=== PATIENT | male | born 1945 | race Caucasian/White ===

== ENCOUNTER → 2021-06-05 | Outpatient (CLI) | payer MEDICARE ==
[2021-06-05 16:35] LABS: Chol/HDL Ratio 3.59; LDL Cholesterol,Calculated 106.2 mg/dL (0.0-131.0); VLDL Calculation 12.8 mg/dL (5.00-40.00)
== END | disposition home or self-care (01) ==
LOC: LABWHC1 10:40
PROVIDERS: ATTEND Internal Medicine Cardiovascular Disease
DX: E78.2 Mixed hyperlipidemia (principal)
CPT/HCPCS: 36415; 80061; 84450; 84460

== ENCOUNTER 2021-08-04 16:07 | Observation (INO) | payer MEDICARE ==
[2021-08-04 16:47] VITALS: PULSE 60
--- NOTE | 2021-08-04 17:35 | ED ---
General Adult HPI - General Chief complaint: Recheck/Abnormal Lab/Rx Stated complaint: dialysis port problems Time Seen by Provider: 08/04/21 17:10 Source: patient, RN notes reviewed Mode of arrival: ambulatory Limitations: no limitations - History of Present Illness Initial comments: Patient is a pleasant 76-year-old male presenting to the emergency department with concern for clotted fistula. Patient had this fistula placed over a year ago in [place]. Patient went to have dialysis today however they were unable to access and concern for clotting. Patient has seen Dr. Melchor once previously. Patient has had previous fistula years ago also that had problems with clotting in the past. Patient otherwise feels fine. Last dialysis was 2 days ago. No arm pain or swelling. - Related Data Allergies Allergy/AdvReac Type Severity Reaction Status Date / Time No Known Allergies Allergy Verified 08/04/21 16:47 Review of Systems ROS Statement: Those systems with pertinent positive or pertinent negative responses have been documented in the HPI. ROS Other: All systems not noted in ROS Statement are negative. Constitutional: Denies: fever Eyes: Denies: eye pain ENT: Denies: ear pain Respiratory: Denies: cough, dyspnea Cardiovascular: Denies: chest pain Endocrine: Denies: fatigue Gastrointestinal: Denies: abdominal pain Genitourinary: Denies: dysuria Musculoskeletal: Denies: back pain Skin: Denies: rash Neurological: Denies: weakness Past Medical History Additional Past Medical History / Comment(s): kidney failure- dialysis 3x per week. pacemaker History of Any Multi-Drug Resistant Organisms: None Reported Additional Past Surgical History / Comment(s): pacekmaker. Cardiac stents. hip replacement Past Psychological History: No Psychological Hx Reported Smoking Status: Never smoker Past Alcohol Use History: Occasional Past Drug Use History: None Reported General Exam Limitations: no limitations General appearance: alert, in no apparent distress Head exam: Present: normocephalic Eye exam: Present: normal appearance Neck exam: Present: normal inspection Respiratory exam: Present: normal lung sounds bilaterally Cardiovascular Exam: Present: regular rate, normal rhythm Expanded Peripheral pulses: 2+: Radial (L) GI/Abdominal exam: Present: soft Extremities exam: Present: other (Left upper extremity fistula in place. There is small thrill noted near the lower end. No significant swelling or erythema or tenderness.) Neurological exam: Present: alert Psychiatric exam: Present: normal affect, normal mood Skin exam: Present: normal color. Absent: erythema Course Vital Signs 08/04/21 08/04/21 16:42 19:02 Temperature 97.4 F L Pulse Rate 60 60 Respiratory 16 16 Rate Blood Pressure 154/74 138/77 O2 Sat by Pulse 99 98 Oximetry - Reevaluation(s) Reevaluation #1: 08/04/21 18:21 Case was discussed with Dr. Barfield who would like labs checked and patient omitted to medicine for probable procedure tomorrow. She would like nephrology consult. Medical Decision Making - Medical Decision Making Case was discussed with Dr. Barfield who would like patient to be admitted to medicine with nephrology consult. She will do procedure tomorrow. Patient updated. Case also discussed with Dr. jorge, who will admit for hospital call. - Lab Data Result diagrams: 08/04/21 18:35 08/04/21 18:35 Lab Results 08/04/21 08/04/21 08/04/21 Range/Units 18:35 18:35 18:35 WBC 6.4 (3.8-10.6) k/uL RBC 3.60 L (4.30-5.90) m/uL Hgb 11.5 L (13.0-17.5) gm/dL Hct 33.5 L (39.0-53.0) % MCV 92.9 (80.0-100.0) fL MCH 31.9 (25.0-35.0) pg MCHC 34.3 (31.0-37.0) g/dL RDW 14.4 (11.5-15.5) % Plt Count 201 (150-450) k/uL MPV 7.2 Neutrophils % 64 % Lymphocytes % 20 % Monocytes % 8 % Eosinophils % 4 % Basophils % 0 % Neutrophils # 4.1 (1.3-7.7) k/uL Lymphocytes # 1.3 (1.0-4.8) k/uL Monocytes # 0.5 (0-1.0) k/uL Eosinophils # 0.2 (0-0.7) k/uL Basophils # 0.0 (0-0.2) k/uL PT 14.6 H (9.0-12.0) sec INR 1.4 H (<1.2) APTT 30.0 (22.0-30.0) sec Sodium 136 L (137-145) mmol/L Potassium 4.3 (3.5-5.1) mmol/L Chloride 96 L (98-107) mmol/L Carbon Dioxide 26 (22-30) mmol/L Anion Gap 14 mmol/L BUN 87 H (9-20) mg/dL Creatinine 6.95 H (0.66-1.25) mg/dL Est GFR (CKD-EPI)AfAm 8 (>60 ml/min/1.73 sqM) Est GFR (CKD-EPI)NonAf 7 (>60 ml/min/1.73 sqM) Glucose 90 (74-99) mg/dL Calcium 9.3 (8.4-10.2) mg/dL Phosphorus 7.7 H (2.5-4.5) mg/dL Magnesium 2.4 H (1.6-2.3) mg/dL Total Bilirubin 0.4 (0.2-1.3) mg/dL AST 19 (17-59) U/L ALT 22 (4-49) U/L Alkaline Phosphatase 53 (38-126) U/L Total Protein 7.1 (6.3-8.2) g/dL Albumin 4.1 (3.5-5.0) g/dL Disposition Clinical Impression: Complication of AV dialysis fistula Disposition: ADMITTED IP TO THIS HOSP Is patient prescribed a controlled substance at d/c from ED?: No Referrals: None,Stated [Primary Care Provider] - 1-2 days Decision Time: 20:34
--- NOTE | 2021-08-04 19:10 | P.GSCN ---
History of Present Illness Consult date: 08/04/21 History of present illness: Patient is a 76-year-old male with end-stage renal disease who utilizes a left upper extremity fistula for dialysis. He was at dialysis today and they were unable to access his site stating there was return of dark blood with some clots. He was recommended to come over to the ER for evaluation. He states that he has had this fistula itself for over a year which was placed on [employer]. He has been seen one time here in this area but is not really had any issues with his dialysis access that he is aware of prior to these issues going on. He denies a fever, chills, nausea, vomiting abdominal pain or shortness of breath Review of Systems 14 point review of systems performed. Pertinent positives and negatives per the HPI Past Medical History Additional Past Medical History / Comment(s): kidney failure- dialysis 3x per week. pacemaker History of Any Multi-Drug Resistant Organisms: None Reported Additional Past Surgical History / Comment(s): shakirakmaker. Cardiac stents. hip replacement Past Psychological History: No Psychological Hx Reported Smoking Status: Never smoker Past Alcohol Use History: Occasional Past Drug Use History: None Reported Medications and Allergies Allergies Allergy/AdvReac Type Severity Reaction Status Date / Time No Known Allergies Allergy Verified 08/04/21 16:47 Surgical - Exam Vital Signs Temp Pulse Resp BP Pulse Ox 97.4 F L 60 16 154/74 99 08/04/21 16:42 08/04/21 16:42 08/04/21 16:42 08/04/21 16:42 08/04/21 16:42 - General well developed, well nourished, no distress - Eyes normal ocular movement - ENT normal pinna, normal nares, normal mucosa - Neck no masses - Respiratory normal expansion, normal respiratory effort - Cardiovascular Rhythm: regular - Abdomen Abdomen: soft, non tender - Integumentary no rash - Neurologic normal coordination, normal sensation - Psychiatric oriented to time, oriented to person, oriented to place, speech is normal (Left upper extremity brachial to cephalic-appearing fistula clean and dry. Palpable thrill proximally. 2 areas of aneurysmal dilatation. No largely dilated distal cephalic vein. Some dilated tributary veins. Left chest wall pacemaker) Assessment and Plan Assessment: End-stage renal disease Malfunctioning AV fistula Plan: At this end patient appears to have a palpable thrill in his fistula with areas of aneurysmal dilatation. Likely the issue was at the aneurysmal access site and mural thrombus which is relatively normal in the is larger aneurysmal areas. We will attempt to have dialysis access here at the hospital. If they are unable to appropriately dialyze, will plan to go forward with a fistulogram inpatient. If they're able to dialyze him, he may still need an outpatient fistulogram however he could be discharged from the hospital with the plans to do so in the near future rather than keeping him here in the hospital
[2021-08-04 19:21] LABS: Basophils % (A) 0 %; Eosinophils # (A) 0.2 k/uL (0-0.7); Eosinophils % (A) 4 %; HCT 33.5 % (39.0-53.0); HGB 11.5 gm/dL (13.0-17.5); Lymphocytes # (A) 1.3 k/uL (1.0-4.8); Lymphocytes % (A) 20 %; MCH 31.9 pg (25.0-35.0); MCHC 34.3 g/dL (31.0-37.0); MCV 92.9 fL (80.0-100.0); Mean Platelet Volume 7.2; Monocytes # (A) 0.5 k/uL (0-1.0); Monocytes % (A) 8 %; Neutrophils # (A) 4.1 k/uL (1.3-7.7); Neutrophils % (A) 64 %; Platelet Count 201 k/uL (150-450); RDW 14.4 % (11.5-15.5); WBC 6.4 k/uL (3.8-10.6)
[2021-08-04 19:29] LABS: Albumin 4.1 g/dL (3.5-5.0); Calcium 9.3 mg/dL (8.4-10.2); INR 1.4 (<1.2); Magnesium 2.4 mg/dL (1.6-2.3); Phosphorus 7.7 mg/dL (2.5-4.5); Potassium 4.3 mmol/L (3.5-5.1); Prothrombin Time 14.6 sec (9.0-12.0); Total Bilirubin 0.4 mg/dL (0.2-1.3); Total Protein 7.1 g/dL (6.3-8.2)
[2021-08-04] MEDS ORDERED: NALOXONE 0.4 MG/ML 1 ML VIAL IV PRN (20:35)
[2021-08-04] MEDS ORDERED: SODIUM CHLORIDE 0.9% 1,000 ML IV SCH (20:45)
--- NOTE | 2021-08-05 01:25 | P.HPIM ---
History of Present Illness H&P Date: 08/04/21 The patient is a 76-year-old male with a PMH of end-stage renal disease on hemodialysis via left AV fistula, coronary artery disease status post stents, depression, who was sent to the emergency room from his hemodialysis center due to a inability to access left AV fistula. The patient reports that the dialysis center had been gradually having more difficulty over the past 3 sessions and stated that he should now be coming into the emergency room to be evaluated by vascular surgery. Dr. Barfield from vascular surgery saw the patient in the emergency room. She recommended repeat dialysis and if inability to access the site, a fistulogram will be performed. The patient otherwise reports feeling at his baseline and denied active complaints. He denied chest discomfort, shortness of fever, chills, cough. Denied nausea, vomiting, abdominal pain. Laboratory evaluation was reviewed. Review of systems: Pertinent positives and negatives as discussed in HPI, a complete review of systems was performed and all other systems are negative. Physical examination: General: non toxic, no distress, appears at stated age, normal weight Derm: no unusual rashes/lesions no unusual ecchymoses, warm, dry Head: atraumatic, normocephalic, symmetric Eyes: EOMI, no lid lag, anicteric sclera, pupils equal round reactive to light ENT: Nose and ears atraumatic, no thrush, no pharyngeal erythema Neck: No thyromegaly, no cervical lymphadenopathy, trachea midline, supple Mouth: no lip lesion, mucus membranes moist Cardiovascular: S1S2 reg, no murmur, positive posterior tibial pulse bilateral, no edema, capillary refill less than 2 seconds Lungs: CTA bilateral, no rhonchi, no rales , no accessory muscle use Abdominal: soft, nontender to palpation, no guarding, no appreciable organomegaly, normal bowel sounds Ext: no gross muscle atrophy, muscle strength 5 out of 5 in all 4 extremities grossly, no contractures, left AV fistula with moderate palpable thrill Neuro: CN II-XI grossly intact, light touch intact all 4 extremities, finger to nose within normal limits, Psych: Alert, oriented, appropriate affect Assessment/plan Malfunctioning AV fistula, end-stage renal disease -Vascular surgery recommendations appreciated -Nephrology consulted for repeat hemodialysis in a.m. Chronic A. fib on Coumadin with subtherapeutic INR -As per pharmacy dosing Chronic conditions: Coronary artery disease -Continue with home meds aspirin, Coreg DVT prophylaxis -Coumadin The patient is admitted with an anticipated less than 2 midnight stay for evaluation of malfunctioning AV fistula CODE STATUS: Full code Discussed with: Patient Anticipated discharge date: in am Anticipated discharge place: Home Past Medical History Additional Past Medical History / Comment(s): kidney failure- dialysis 3x per week. pacemaker History of Any Multi-Drug Resistant Organisms: None Reported Additional Past Surgical History / Comment(s): pacekmaker. Cardiac stents. hip replacement Past Psychological History: No Psychological Hx Reported Smoking Status: Never smoker Past Alcohol Use History: Occasional Past Drug Use History: None Reported - Past Family History Father Family Medical History: Hypertension Medications and Allergies Home Medications Medication Instructions Recorded Confirmed Type Aspirin EC [Ecotrin Low Dose] 81 mg PO DAILY 08/04/21 08/04/21 History Calcium Acetate [Phoslo] 667 mg PO DAILY PRN 08/04/21 08/04/21 History Calcium Acetate [Phoslo] 667 mg PO TID-W/MEALS 08/04/21 08/04/21 History Carvedilol [Coreg] 6.25 mg PO BID 08/04/21 08/04/21 History Dialyvite 1 tab PO DAILY 08/04/21 08/04/21 History Escitalopram [Lexapro] 20 mg PO DAILY 08/04/21 08/04/21 History Furosemide [Lasix] 40 mg PO DAILY 08/04/21 08/04/21 History LORazepam [Ativan] 0.5 mg PO TID PRN 08/04/21 08/04/21 History Montelukast [Singulair] 10 mg PO DAILY 08/04/21 08/04/21 History Warfarin [Coumadin] 1 mg PO HS 08/04/21 08/04/21 History Warfarin [Coumadin] 2 mg PO DAILY 08/04/21 08/04/21 History Allergies Allergy/AdvReac Type Severity Reaction Status Date / Time No Known Allergies Allergy Verified 08/04/21 21:25 Physical Exam Vitals: Vital Signs Temp Pulse Resp BP Pulse Ox 08/04/21 22:19 60 18 148/72 99 08/04/21 19:02 60 16 138/77 98 08/04/21 16:42 97.4 F L 60 16 154/74 99 Intake and Output 08/04/21 08/04/21 08/05/21 14:59 22:59 06:59 Other: Weight 79.379 kg Results CBC & Chem 7: 08/04/21 18:35 08/04/21 18:35 Labs: Abnormal Lab Results - Last 24 Hours (Table) 08/04/21 08/04/21 08/04/21 Range/Units 18:35 18:35 18:35 RBC 3.60 L (4.30-5.90) m/uL Hgb 11.5 L (13.0-17.5) gm/dL Hct 33.5 L (39.0-53.0) % PT 14.6 H (9.0-12.0) sec INR 1.4 H (<1.2) Sodium 136 L (137-145) mmol/L Chloride 96 L (98-107) mmol/L BUN 87 H (9-20) mg/dL Creatinine 6.95 H (0.66-1.25) mg/dL Phosphorus 7.7 H (2.5-4.5) mg/dL Magnesium 2.4 H (1.6-2.3) mg/dL
[2021-08-05] MEDS ORDERED: LORazepam 0.5 MG TAB PO PRN (01:27)
[2021-08-05 06:10] VITALS: TEMP 97.6
[2021-08-05] MEDS ORDERED: carvediloL 6.25 MG TAB PO SCH (07:30)
[2021-08-05 08:56] VITALS: BP 132/63; RESP 16
[2021-08-05] MEDS ORDERED: CALCIUM ACETATE 667 MG TAB PO PRN (09:00)
[2021-08-05] MEDS ORDERED: MONTELUKAST 10 MG TAB PO SCH (09:00)
[2021-08-05] MEDS ORDERED: ASPIRIN 81 MG PO SCH (09:00)
[2021-08-05] MEDS ORDERED: ESCITALOPRAM 20 MG TAB PO SCH (09:00)
--- NOTE | 2021-08-05 11:57 | P.NPCON ---
History of Present Illness - Reason for Consult Consult date: 08/05/21 end stage renal disease - Chief Complaint Difficulty in cannulating axis - History of Present Illness This is a 76-year-old male with ESRD on dialysis Saturday at the [facility] unit. He was sent in from the unit because of failure to cannulate his axis. The dialysis unit here were able to do it without any difficulty and he had a short dialysis of 2 and half hours because of staffing shortage and is feeling fairly well. He is known with coronary artery disease, previous history of difficulty cannulating every now and then, history of A. fib, pacemaker Currently he is feeling fine and denies any complaints at all and no chest pain shortness of breath nausea vomiting diarrhea abdominal pain is able to walk well. Past Medical History Past Medical History: Atrial Fibrillation, Dialysis Additional Past Medical History / Comment(s): kidney failure- dialysis 3x per week. pacemaker History of Any Multi-Drug Resistant Organisms: None Reported Additional Past Surgical History / Comment(s): pacekmaker. Cardiac stents. hip replacement Past Psychological History: No Psychological Hx Reported Smoking Status: Never smoker Past Alcohol Use History: Occasional Past Drug Use History: None Reported - Past Family History Father Family Medical History: Hypertension Medications and Allergies Home Medications Medication Instructions Recorded Confirmed Type Aspirin EC [Ecotrin Low Dose] 81 mg PO DAILY 08/04/21 08/04/21 History Calcium Acetate [Phoslo] 667 mg PO DAILY PRN 08/04/21 08/04/21 History Calcium Acetate [Phoslo] 667 mg PO TID-W/MEALS 08/04/21 08/04/21 History Carvedilol [Coreg] 6.25 mg PO BID 08/04/21 08/04/21 History Dialyvite 1 tab PO DAILY 08/04/21 08/04/21 History Escitalopram [Lexapro] 20 mg PO DAILY 08/04/21 08/04/21 History Furosemide [Lasix] 40 mg PO DAILY 08/04/21 08/04/21 History LORazepam [Ativan] 0.5 mg PO TID PRN 08/04/21 08/04/21 History Montelukast [Singulair] 10 mg PO DAILY 08/04/21 08/04/21 History Warfarin [Coumadin] 1 mg PO HS 08/04/21 08/04/21 History Warfarin [Coumadin] 2 mg PO DAILY 08/04/21 08/04/21 History Allergies Allergy/AdvReac Type Severity Reaction Status Date / Time No Known Allergies Allergy Verified 08/04/21 21:25 Physical Exam Vitals: Vital Signs Temp Pulse Pulse Resp BP BP Pulse Ox 08/05/21 08:00 60 16 08/05/21 07:00 97.6 F 60 16 132/63 98 08/05/21 00:30 97.6 F 60 14 170/69 99 08/04/21 22:19 60 18 148/72 99 08/04/21 19:02 60 16 138/77 98 08/04/21 16:42 97.4 F L 60 16 154/74 99 Intake and Output 08/04/21 08/05/21 08/05/21 22:59 06:59 14:59 Other: Voiding Method Toilet Weight 79.379 kg 79.379 kg On examination is awake alert oriented comfortable HEENT exam no JVP neck is supple no facial asymmetry Lungs clear to auscultation good air entry bilaterally Heart sounds unremarkable for any murmur rub gallop Abdomen soft nontender Extremity exam was no edema Neurologically awake alert oriented. His graft looks normal on the left upper arm without any hematoma or swelling around the Results - Lab Results Most recent lab results Calcium 9.3 mg/dL (8.4-10.2) 08/04/21 18:35 Phosphorus 7.7 mg/dL (2.5-4.5) H 08/04/21 18:35 Magnesium 2.4 mg/dL (1.6-2.3) H 08/04/21 18:35 08/04/21 18:35 08/04/21 18:35 Assessment and Plan Assessment: Impression 1. ESRD on dialysis Saturday with the AV graft in the left upper arm. 2. Admitted with difficulty in cannulating the graft in the dialysis unit and therefore was sent to the hospital and admitted 3. History of A. fib currently since to be normal sinus rhythm 4. History of pacemaker Recommendation We have been dialyzed for 2-1/2 hours and 2 L were taken off. He is stable to be discharged
[2021-08-05 12:42] LABS: Magnesium 2.4 mg/dL (1.5-2.4); Phosphorus 7.6 mg/dL (2.4-5.1)
[2021-08-05] MEDS: CALCIUM ACETATE 667 MG TAB PO SCH ×2 (12:42→12:43)
[2021-08-05 12:44] LABS: African American GFR (CKD) 7.9 (60.0-200.0); Albumin 3.9 g/dL (3.8-4.9); Albumin/Globulin Ratio 1.69 (1.60-3.17); Anion Gap 18.8 mmol/L (4.00-12.00); BUN/Creat Ratio 12.35 Ratio (12.00-20.00); Blood Urea Nitrogen 86.7 mg/dL (9.0-27.0); Calcium 9.5 mg/dL (8.7-10.3); Carbon Dioxide 20.2 mmol/L (21.6-31.8); Globulin 2.3 g/dL (1.6-3.3); Non-African American GFR(CKD) 6.9 (60.0-200.0); Potassium 4.6 mmol/L (3.5-5.5); Total Bilirubin 0.3 mg/dL (0.30-1.20); Total Protein 6.2 g/dL (6.2-8.2)
[2021-08-05 12:54] LABS: INR 1.37 (0.90-1.11); Prothrombin Time 14.6 sec (9.9-11.9)
--- NOTE | 2021-08-05 12:56 | P.DS ---
Providers Date of admission: 08/04/21 20:35 Expected date of discharge: 08/05/21 Attending physician: Elena Nogueira MD Consults: 08/04/21 20:35 Consult Physician Routine Consulting Provider: Markos Lynch Consult Reason/Comments: esrd on hd Do you want consulting provider notified?: Yes Primary care physician: Stated None Hospital Course: The patient is a 76-year-old male with a PMH of end-stage renal disease on hemodialysis via left AV fistula, coronary artery disease status post stents, depression, who was sent to the emergency room from his hemodialysis center due to a inability to access left AV fistula. The patient reports that the dialysis center had been gradually having more difficulty over the past 3 sessions and stated that he should now be coming into the emergency room to be evaluated by vascular surgery. Dr. Barfield from vascular surgery saw the patient in the emergency room. She recommended repeat dialysis and if inability to access the site, a fistulogram will be performed. The patient otherwise reports feeling at his baseline and denied active complaints. He denied chest discomfort, shortness of fever, chills, cough. Denied nausea, vomiting, abdominal pain. Laboratory evaluation was reviewed. Patient was seen and evaluated by me this morning. He was having hemodialysis with no difficulty accessing his fistula. He was seen and evaluated by nephrology and vascular surgery. Plan to follow-up outpatient in the office. Patient was cleared for discharge home. Physical exam: General: The patient is awake and alert, in no distress Eye: there is normal conjunctiva bilaterally. Neck: The neck is supple, there is no JVD. Cardiovascular: Normal S1-S2, no S3-S4, no murmurs. Respiratory: Lungs clear to auscultation bilaterally Gastrointestinal: Abdomen is soft, nontender Musculoskeletal: There is no pedal edema. Neurological:. Speech is normal. Skin: Skin is warm and dry Plan - Discharge Summary New Discharge Prescriptions: Continue Warfarin [Coumadin] 2 mg PO DAILY Warfarin [Coumadin] 1 mg PO HS Montelukast [Singulair] 10 mg PO DAILY LORazepam [Ativan] 0.5 mg PO TID PRN PRN Reason: Anxiety Furosemide [Lasix] 40 mg PO DAILY Dialyvite 1 tab PO DAILY Carvedilol [Coreg] 6.25 mg PO BID Calcium Acetate [PhosLo] 667 mg PO DAILY PRN PRN Reason: WITH A SNACK Calcium Acetate [PhosLo] 667 mg PO TID-W/MEALS Escitalopram [Lexapro] 20 mg PO DAILY Aspirin EC [Ecotrin Low Dose] 81 mg PO DAILY Discharge Medication List Aspirin EC [Ecotrin Low Dose] 81 mg PO DAILY 08/04/21 [History] Calcium Acetate [PhosLo] 667 mg PO DAILY PRN 08/04/21 [History] Calcium Acetate [PhosLo] 667 mg PO TID-W/MEALS 08/04/21 [History] Carvedilol [Coreg] 6.25 mg PO BID 08/04/21 [History] Dialyvite 1 tab PO DAILY 08/04/21 [History] Escitalopram [Lexapro] 20 mg PO DAILY 08/04/21 [History] Furosemide [Lasix] 40 mg PO DAILY 08/04/21 [History] LORazepam [Ativan] 0.5 mg PO TID PRN 08/04/21 [History] Montelukast [Singulair] 10 mg PO DAILY 08/04/21 [History] Warfarin [Coumadin] 1 mg PO HS 08/04/21 [History] Warfarin [Coumadin] 2 mg PO DAILY 08/04/21 [History] Follow up Appointment(s)/Referral(s): None,Stated [Primary Care Provider] - 1-2 days Discharge Disposition: HOME SELF-CARE
[2021-08-05] MEDS ORDERED: WARFARIN 3 MG TAB PO ONE (18:00)
== END 2021-08-05 13:47 | disposition home or self-care (01) ==
LOC: EC 16:07 → 6NMEDSUR 20:35
PROVIDERS: ADMIT Internal Medicine; ATTEND Internal Medicine
DX: T82.510A Breakdown (mechanical) of surgically created arteriovenous fistula, initial encounter (principal); N18.6 End stage renal disease; Z99.2 Dependence on renal dialysis; I25.10 Atherosclerotic heart disease of native coronary artery without angina pectoris; I48.20 Chronic atrial fibrillation, unspecified; F32.9 Major depressive disorder, single episode, unspecified; Z20.822 Contact with and (suspected) exposure to COVID-19; Z95.5 Presence of coronary angioplasty implant and graft; Z95.0 Presence of cardiac pacemaker; Z96.649 Presence of unspecified artificial hip joint; Z79.01 Long term (current) use of anticoagulants; Z79.82 Long term (current) use of aspirin; Z79.899 Other long term (current) drug therapy; Y71.2 Prosthetic and other implants, materials and accessory cardiovascular devices associated with adverse incidents; Z82.49 Family history of ischemic heart disease and other diseases of the circulatory system
CPT/HCPCS: 90970; 99284; 36415; 80053 ×2; 83735 ×2; 84100 ×2; 85025; 85610 ×2; 85730; 87635; G0378 ×2

== ENCOUNTER → 2021-08-08 | Outpatient (CLI) | payer MEDICARE ==
[2021-08-08 23:14] LABS: Basophils # (A) 0.02 X 10*3/uL (0.00-0.10); Basophils % (A) 0.3 %; Eosinophils # (A) 0.17 X 10*3/uL (0.04-0.35); Eosinophils % (A) 2.5 %; HCT 33.6 % (39.6-50.0); HGB 11.2 g/dL (13.0-17.0); Lymphocytes % (A) 16.4 %; MCH 31.5 pg (27.0-32.0); MCHC 33.3 g/dL (32.0-37.0); MCV 94.6 fL (80.0-97.0); Mean Platelet Volume 9.5 fL (9.5-12.2); Monocytes # (A) 0.67 X 10*3/uL (0.20-1.00); Neutrophils # (A) 4.71 X 10*3/uL (1.80-7.70); Neutrophils % (A) 70.5 %; Platelet Count 188 X 10*3/uL (140-440); RBC 3.55 X 10*6/uL (4.40-5.60); RDW 13.3 % (11.5-14.5); WBC 6.69 X 10*3/uL (4.50-10.00)
[2021-08-09 01:56] LABS: African American GFR (CKD) 9.1 (60.0-200.0); Anion Gap 17.5 mmol/L (4.00-12.00); Blood Urea Nitrogen 71.2 mg/dL (9.0-27.0); Carbon Dioxide 23.5 mmol/L (21.6-31.8); Non-African American GFR(CKD) 7.8 (60.0-200.0); Potassium 4.7 mmol/L (3.5-5.5)
== END | disposition home or self-care (01) ==
LOC: LABWHC1 15:54
PROVIDERS: ATTEND Surgery
DX: Z01.812 Encounter for preprocedural laboratory examination (principal); N18.6 End stage renal disease
CPT/HCPCS: 36415; 80051; 82565; 84520; 85025

== ENCOUNTER 2021-08-10 10:40 | Day surgery (SDC) | payer MEDICARE ==
[2021-08-09 11:25] VITALS: BMI 25.1
[2021-08-10] MEDS ORDERED: SODIUM CHLORIDE 0.9% 1,000 ML IV SCH (11:00)
[2021-08-10 11:19] VITALS: PULSE 60; RESP 18; TEMP 96.8
[2021-08-10 11:39] LABS: INR 1.3 (<1.2); Prothrombin Time 13.5 sec (9.0-12.0)
[2021-08-10] MEDS ORDERED: LIDOCAINE 1% INJ 10MG/ML (20 ML MDV) ONE (11:53)
[2021-08-10] MEDS ORDERED: LIDOCAINE 1% INJ 10MG/ML (20 ML MDV) SQ ONE (12:06)
[2021-08-10] MEDS ORDERED: IOPAMIDOL-250 100ML BTL IV ONE (12:48)
--- NOTE | 2021-08-10 13:09 | P.OP ---
Date of Procedure: 08/10/21 Description of Procedure: Preoperative diagnosis: Malfunctioning left upper extremity AV fistula, aneurysmal fistula Postoperative diagnosis: Same Procedure: Ultrasound-guided left upper extremity cephalic vein access Left upper extremity fistulogram Percutaneous transluminal balloon venoplasty of the cephalic vein with 6 x 80, drug-coated balloons in size 7 x 80, 7 x 60 Surgeon: Chiara Barfield D.O. EBL: [Less than 10 mL] IV fluids: [See records] Urine output: [Not measured] Drains: [None] Complications: [None immediately apparent] Condition: [Stable to recovery] Operative indication and findings: [Patient is a 76-year-old male in today for fistulogram and evaluation. They've been having difficulty accessing the fistula successfully. He has had previous fistulas in the past and have some degree of issues with this fistula he is not certain when he has had his last intervention on this fistula. He does have a left-sided pacemaker.] Risks and benefits were discussed. He seemingly understood and was willing to proceed as such Procedure in detail: [The patient was taken to the special suite and placed in supine position. The left upper extremity was prepped and draped in usual sterile fashion. A preprocedure timeout was performed, all parties were in agreement. The ultrasound was utilized in the cephalic vein was accessed with micro-access needle. A micro-access sheath was placed and the cystogram was performed. There was obvious area of aneurysmal dilatation as well as signi ficant and severe narrowing with areas of collateral flow. There are previously placed stents visualized through the axillary and into the subclavian vein. The stents appear widely patent without significant disease. Catheters and wires were used across the area of 90% stenosis near occlusion. A 6 x 80 balloon venoplasty was performed as an upsized and a subsequent evident by 6 the and 7 x 80 drug-coated balloon were insufflated at the area of stenosis. There was significant improvement and near resolution. There is a good palpable thrill through the fistula upon conclusion. Catheters and wires were removed. The sheath was removed and a [id number] suture is placed through Prolene. The skin, and a dialysis at his next visit.] Plan - Discharge Summary Discharge Rx Participant: No New Discharge Prescriptions: No Action Warfarin [Coumadin] 1.5 mg PO MOWEFR Montelukast [Singulair] 10 mg PO DAILY LORazepam [Ativan] 0.5 mg PO TID PRN PRN Reason: Anxiety Furosemide [Lasix] 40 mg PO DAILY Dialyvite 1 tab PO DAILY Carvedilol [Coreg] 6.25 mg PO BID Calcium Acetate [PhosLo] 667 mg PO TID-W/MEALS Escitalopram [Lexapro] 20 mg PO DAILY Aspirin EC [Ecotrin Low Dose] 81 mg PO DAILY Warfarin [Coumadin] 3 mg PO [facility] Discharge Medication List Aspirin EC [Ecotrin Low Dose] 81 mg PO DAILY 08/04/21 [History] Calcium Acetate [PhosLo] 667 mg PO TID-W/MEALS 08/04/21 [History] Carvedilol [Coreg] 6.25 mg PO BID 08/04/21 [History] Dialyvite 1 tab PO DAILY 08/04/21 [History] Escitalopram [Lexapro] 20 mg PO DAILY 08/04/21 [History] Furosemide [Lasix] 40 mg PO DAILY 08/04/21 [History] LORazepam [Ativan] 0.5 mg PO TID PRN 08/04/21 [History] Montelukast [Singulair] 10 mg PO DAILY 08/04/21 [History] Warfarin [Coumadin] 1.5 mg PO MOWEFR 08/04/21 [History] Warfarin [Coumadin] 3 mg PO SUTUTHSA 08/09/21 [History]
--- NOTE | 2021-08-10 13:10 | IR ---
EXAMINATION TYPE: IR fistula/abscess/sinus tract DATE OF EXAM: 08/10/2021 COMPARISON: NONE HISTORY: Fluoroscopy time. Fluoroscopy was provided to the referring clinician.
[2021-08-10 14:30] VITALS: BP 125/60
== END 2021-08-10 14:45 | disposition home or self-care (01) ==
LOC: CATHCVL 10:40
PROVIDERS: ATTEND Surgery
DX: I77.0 Arteriovenous fistula, acquired (principal); Z79.01 Long term (current) use of anticoagulants; Z79.82 Long term (current) use of aspirin; Z20.822 Contact with and (suspected) exposure to COVID-19
CPT/HCPCS: 36902; 85610; 87635; C1894; C1769 ×4; C1725; C2623; J2001; Q9966

== ENCOUNTER → 2021-12-04 | Outpatient (CLI) | payer MEDICARE ==
--- NOTE | 2021-12-04 11:07 | FL ---
EXAMINATION TYPE: FL barium swallow DATE OF EXAM: 12/04/2021 COMPARISON: None HISTORY: Dysphagia TECHNIQUE: Double air contrast technique was utilized to evaluate the esophagus. FINDINGS: 174 images were obtained 26 seconds of fluoroscopy time was provided. The esophagus dilates normal caliber and has normal contour to the gastroesophageal junction. Multipl e tertiary contractions were evident during the examination. No intraluminal or extramural defects ev ident. No reflux was identified. IMPRESSION: 1. Presbyesophagus.
== END | disposition home or self-care (01) ==
LOC: RADUSWWP 09:54
PROVIDERS: ATTEND Family Medicine
DX: K22.89 Other specified disease of esophagus (principal); R13.10 Dysphagia, unspecified
CPT/HCPCS: 74220

== ENCOUNTER 2021-12-15 11:45 | Emergency (ER) | payer MEDICARE ==
[2021-12-15 11:53] VITALS: TEMP 98.3
[2021-12-15 12:48] LABS: Basophils % (A) 0 %; Eosinophils # (A) 0.2 k/uL (0-0.7); Eosinophils % (A) 2 %; HCT 30.9 % (39.0-53.0); HGB 10.4 gm/dL (13.0-17.5); Lymphocytes # (A) 0.9 k/uL (1.0-4.8); Lymphocytes % (A) 10 %; MCH 33.2 pg (25.0-35.0); MCHC 33.6 g/dL (31.0-37.0); MCV 98.7 fL (80.0-100.0); Macrocytosis Slight; Mean Platelet Volume 7.4; Monocytes # (A) 0.5 k/uL (0-1.0); Monocytes % (A) 6 %; Neutrophils # (A) 6.5 k/uL (1.3-7.7); Neutrophils % (A) 79 %; Platelet Count 228 k/uL (150-450); RBC 3.13 m/uL (4.30-5.90); RDW 15.9 % (11.5-15.5); WBC 8.2 k/uL (3.8-10.6)
--- NOTE | 2021-12-15 13:02 | ED ---
General Adult HPI - General Chief complaint: Recheck/Abnormal Lab/Rx Stated complaint: Covid+/Needs dialysis/port issues Time Seen by Provider: 12/15/21 12:05 Source: patient, RN notes reviewed, old records reviewed Mode of arrival: ambulatory Limitations: no limitations - History of Present Illness Initial comments: 76-year-old male presenting for evaluation. Patient had been unable to receive hemodialysis secondary to testing positive for coronavirus. He went to a coronavirus specific hemodialysis center but his left upper extremity fistula was clotted and he was unable to receive dialysis. He normally receives hemodialysis on Saturday. His most recent dialysis was Saturday and is he is presenting on Saturday. No complaints. No fever. No dyspnea. No chest pain. - Related Data Home Medications Medication Instructions Recorded Confirmed Aspirin EC [Ecotrin Low Dose] 81 mg PO DAILY 08/04/21 12/15/21 Calcium Acetate [PhosLo] 1,334 mg PO TID-W/MEALS 08/04/21 12/15/21 Carvedilol [Coreg] 6.25 mg PO DAILY 08/04/21 12/15/21 Dialyvite 1 tab PO DAILY 08/04/21 12/15/21 Escitalopram [Lexapro] 20 mg PO DAILY 08/04/21 12/15/21 Furosemide [Lasix] 40 mg PO DAILY 08/04/21 12/15/21 LORazepam [Ativan] 0.5 mg PO TID PRN 08/04/21 12/15/21 Montelukast [Singulair] 10 mg PO DAILY 08/04/21 12/15/21 Warfarin [Coumadin] 3 mg PO Q48H 08/09/21 12/15/21 Albuterol Sulfate [Proventil Hfa] 2 puff INHALATION RT-Q4H PRN 12/15/21 12/15/21 Budesonide/Formoterol Fumarate 2 puff INHALATION RT-BID 12/15/21 12/15/21 [Symbicort 160-4.5 Mcg Inhaler] Lidocaine-Prilocaine Cream [Emla 1 applic TOPICAL DAILY PRN 12/15/21 12/15/21 Cream 2.5%/2.5%] Mirtazapine [Remeron] 15 mg PO HS 12/15/21 12/15/21 Warfarin Sodium 4 mg PO Q48H 12/15/21 12/15/21 levOCARNitine [Levocarnitine] 330 mg PO TID-W/MEALS 12/15/21 12/15/21 Allergies Allergy/AdvReac Type Severity Reaction Status Date / Time No Known Allergies Allergy Verified 12/15/21 14:26 Review of Systems ROS Statement: Those systems with pertinent positive or pertinent negative responses have been documented in the HPI. ROS Other: All systems not noted in ROS Statement are negative. Past Medical History Past Medical History: Atrial Fibrillation, Dialysis, Eye Disorder Additional Past Medical History / Comment(s): Kidney Failure- Dialysis MOWEFR. Pacemaker. Cataracts. History of Any Multi-Drug Resistant Organisms: None Reported Past Surgical History: Joint Replacement, Pacemaker Additional Past Surgical History / Comment(s): Cardiac stents, right hip replacement. Past Anesthesia/Blood Transfusion Reactions: No Reported Reaction Type of Cardiac Device: Unknown Device Placement Date:: 2010 Past Psychological History: No Psychological Hx Reported Smoking Status: Never smoker Past Alcohol Use History: None Reported Past Drug Use History: None Reported - Past Family History Father Family Medical History: Hypertension Brother(s) Family Medical History: Cancer Additional Family Medical History / Comment(s): 2 brothers of cancer. General Exam Limitations: no limitations General appearance: alert, in no apparent distress Head exam: Present: atraumatic, normocephalic Eye exam: Present: normal appearance, PERRL ENT exam: Present: normal exam Neck exam: Present: normal inspection. Absent: tenderness, meningismus Respiratory exam: Present: normal lung sounds bilaterally. Absent: respiratory distress, wheezes Cardiovascular Exam: Present: regular rate. Absent: normal rhythm Extremities exam: Present: other (Left upper extremity fistula, positive thrill, positive bruit in the lower segment.) Neurological exam: Present: alert, oriented X3, other (Expressive aphasia). Absent: motor sensory deficit Psychiatric exam: Present: normal affect, normal mood Skin exam: Present: warm, dry, intact. Absent: cyanosis, diaphoretic Course Vital Signs 12/15/21 12/15/21 11:48 12:52 Temperature 98.3 F Pulse Rate 68 73 Respiratory 20 16 Rate Blood Pressure 163/66 129/73 O2 Sat by Pulse 98 96 Oximetry EKG Findings - EKG Comments: EKG Findings:: EKG: Electronic paced ventricular rhythm rate of 60, QRS duration 157, QTC 487 Medical Decision Making - Medical Decision Making 76-year-old male with coronavirus and clotted left upper extremity fistula presenting with need for hemodialysis. Patient has no complaints. He has normal electrolytes. He's on room air. With stable vitals. I did discuss case with Dr. Villarreal covering for vascular surgery who does request the patient be transferred for urgent evaluation of suspected clotted AV fistula. Patient will be transferred to [facility] accepting physician is Dr. Saeed - Lab Data Result diagrams: 12/15/21 12:42 12/15/21 12:42 Lab Results 12/15/21 12/15/21 Range/Units 12:42 12:42 WBC 8.2 (3.8-10.6) k/uL RBC 3.13 L (4.30-5.90) m/uL Hgb 10.4 L (13.0-17.5) gm/dL Hct 30.9 L (39.0-53.0) % MCV 98.7 (80.0-100.0) fL MCH 33.2 (25.0-35.0) pg MCHC 33.6 (31.0-37.0) g/dL RDW 15.9 H (11.5-15.5) % Plt Count 228 (150-450) k/uL MPV 7.4 Neutrophils % 79 % Lymphocytes % 10 % Monocytes % 6 % Eosinophils % 2 % Basophils % 0 % Neutrophils # 6.5 (1.3-7.7) k/uL Lymphocytes # 0.9 L (1.0-4.8) k/uL Monocytes # 0.5 (0-1.0) k/uL Eosinophils # 0.2 (0-0.7) k/uL Basophils # 0.0 (0-0.2) k/uL Macrocytosis Slight Sodium 137 (137-145) mmol/L Potassium 3.8 (3.5-5.1) mmol/L Chloride 98 (98-107) mmol/L Carbon Dioxide 27 (22-30) mmol/L Anion Gap 12 mmol/L BUN 107 H* (9-20) mg/dL Creatinine 7.40 H* (0.66-1.25) mg/dL Est GFR (CKD-EPI)AfAm 7 (>60 ml/min/1.73 sqM) Est GFR (CKD-EPI)NonAf 6 (>60 ml/min/1.73 sqM) Glucose 111 H (74-99) mg/dL Calcium 9.4 (8.4-10.2) mg/dL Magnesium 2.4 H (1.6-2.3) mg/dL Total Bilirubin 0.6 (0.2-1.3) mg/dL AST 15 L (17-59) U/L ALT 13 (4-49) U/L Alkaline Phosphatase 42 (38-126) U/L Total Protein 6.9 (6.3-8.2) g/dL Albumin 4.0 (3.5-5.0) g/dL Disposition Clinical Impression: Complication of AV dialysis fistula, ESRD (end stage renal disease), COVID-19 Disposition: ADMITTED IP TO THIS HOSP Condition: Stable Is patient prescribed a controlled substance at d/c from ED?: No Referrals: Alvaro Foster MD [Primary Care Provider] - 1-2 days Decision Date: 12/15/21 Decision Time: 14:01 - Out of Hospital Transfer - Req. Specs Out of Hospital Transfer - Requested Specifics: Other Emergency Center (Transfer to [facility])
[2021-12-15 13:07] LABS: Calcium 9.4 mg/dL (8.4-10.2); Magnesium 2.4 mg/dL (1.6-2.3); Potassium 3.8 mmol/L (3.5-5.1); Total Bilirubin 0.6 mg/dL (0.2-1.3); Total Protein 6.9 g/dL (6.3-8.2)
[2021-12-15] MEDS ORDERED: NALOXONE 0.4 MG/ML 1 ML VIAL IV PRN (13:59)
[2021-12-15 15:18] VITALS: BP 125/78; PULSE 78; RESP 18
== END 2021-12-15 15:54 | disposition other institution (70) ==
LOC: EC 11:45
DX: U07.1 COVID-19 (principal); N18.6 End stage renal disease; T80.90XA Unspecified complication following infusion and therapeutic injection, initial encounter
CPT/HCPCS: 36415; 80053; 83735; 85025; 93005; 99283

== ENCOUNTER 2022-08-28 17:34 | Inpatient (IN) | payer MEDICARE ==
[2022-08-28 18:23] LABS: Basophils % (A) 1 %; Eosinophils # (A) 0.4 k/uL (0-0.7); Eosinophils % (A) 6 %; HCT 32.5 % (39.0-53.0); HGB 10.6 gm/dL (13.0-17.5); Hypochromasia Moderate; Lymphocytes # (A) 0.6 k/uL (1.0-4.8); Lymphocytes % (A) 9 %; MCH 31.2 pg (25.0-35.0); MCHC 32.7 g/dL (31.0-37.0); MCV 95.5 fL (80.0-100.0); Mean Platelet Volume 7.6; Monocytes # (A) 0.6 k/uL (0-1.0); Monocytes % (A) 10 %; Neutrophils # (A) 4.4 k/uL (1.3-7.7); Neutrophils % (A) 72 %; Platelet Count 250 k/uL (150-450); RBC 3.41 m/uL (4.30-5.90); RDW 15.7 % (11.5-15.5); WBC 6.1 k/uL (3.8-10.6)
--- NOTE | 2022-08-28 18:31 | XR ---
EXAMINATION TYPE: XR chest 2V DATE OF EXAM: 08/28/2022 COMPARISON: NONE HISTORY: Difficulty breathing TECHNIQUE: 2 views FINDINGS: Heart is top normal in size. There is blunting of the costophrenic angles. There is mild pu lmonary vascular congestion. There is left axillary pacemaker. IMPRESSION: There is evidence for some mild heart failure with small pleural effusions.
[2022-08-28 18:32] LABS: INR 1.4 (<1.2); Prothrombin Time 14.9 sec (9.0-12.0)
[2022-08-28 18:33] LABS: Albumin 4.5 g/dL (3.5-5.0); Calcium 8.9 mg/dL (8.4-10.2); Potassium 3.9 mmol/L (3.5-5.1); Total Bilirubin 0.7 mg/dL (0.2-1.3); Total Protein 7.8 g/dL (6.3-8.2)
[2022-08-28] MEDS ORDERED: NITROGLYCERIN OINT 1 INCH/GM PACKET TOPICAL STA (18:40)
[2022-08-28] MEDS ORDERED: ASPIRIN 81 MG PO STA (18:40)
--- NOTE | 2022-08-28 18:54 | ED ---
General Adult HPI - General Chief complaint: Shortness of Breath Stated complaint: Chest Pain Time Seen by Provider: 08/28/22 17:45 Source: patient, family, RN notes reviewed, old records reviewed Mode of arrival: wheelchair Limitations: no limitations - History of Present Illness Initial comments: This is a 77-year-old male who presents emergency department with past medical history significant for high blood pressure kidney failure and is on dialysis for 3 years and patient has a pacemaker in place. Patient states for 6 months she's been having shortness of breath and he states he seen multiple doctors but they can't tell him why he short of breath. Patient states after dialysis today he went home and he is very short of breath per patient states with any exertion he becomes more short of breath and has chest pain. Patient denies any radi ation of the chest pain. Patient denies any diaphoretic episodes. Patient's any fever chills. Patient denies any palpitations. Patient denies abdominal pain patient denies nausea vomiting diarrhea. Patient denies lightheadedness or dizziness. Patient denies any numbness or weakness. - Related Data Home Medications Medication Instructions Recorded Confirmed Aspirin EC [Ecotrin Low Dose] 81 mg PO DAILY 08/04/21 12/15/21 Calcium Acetate [PhosLo] 1,334 mg PO TID-W/MEALS 08/04/21 12/15/21 Dialyvite 1 tab PO DAILY 08/04/21 12/15/21 Escitalopram [Lexapro] 20 mg PO DAILY 08/04/21 12/15/21 Furosemide [Lasix] 40 mg PO DAILY 08/04/21 12/15/21 LORazepam [Ativan] 0.5 mg PO TID PRN 08/04/21 12/15/21 Montelukast [Singulair] 10 mg PO DAILY 08/04/21 12/15/21 carvediloL [Coreg] 6.25 mg PO DAILY 08/04/21 12/15/21 Warfarin [Coumadin] 3 mg PO Q48H 08/09/21 12/15/21 Albuterol Sulfate [Proventil Hfa] 2 puff INHALATION RT-Q4H PRN 12/15/21 12/15/21 Budesonide/Formoterol Fumarate 2 puff INHALATION RT-BID 12/15/21 12/15/21 [Symbicort 160-4.5 Mcg Inhaler] Lidocaine-Prilocaine Cream [Emla 1 applic TOPICAL DAILY PRN 12/15/21 12/15/21 Cream 2.5%/2.5%] Mirtazapine [Remeron] 15 mg PO HS 12/15/21 12/15/21 Warfarin Sodium 4 mg PO Q48H 12/15/21 12/15/21 levOCARNitine [Levocarnitine] 330 mg PO TID-W/MEALS 12/15/21 12/15/21 Allergies Allergy/AdvReac Type Severity Reaction Status Date / Time No Known Allergies Allergy Verified 08/28/22 17:46 Review of Systems ROS Statement: Those systems with pertinent positive or pertinent negative responses have been documented in the HPI. ROS Other: All systems not noted in ROS Statement are negative. Past Medical History Past Medical History: Atrial Fibrillation, Dialysis, Eye Disorder Additional Past Medical History / Comment(s): Kidney Failure- Dialysis MOWEFR. Pacemaker. Cataracts. History of Any Multi-Drug Resistant Organisms: None Reported Past Surgical History: Joint Replacement, Pacemaker Additional Past Surgical History / Comment(s): Cardiac stents, right hip replacement. Past Anesthesia/Blood Transfusion Reactions: No Reported Reaction Type of Cardiac Device: Unknown Device Placement Date:: 2010 Past Psychological History: No Psychological Hx Reported Smoking Status: Never smoker Past Alcohol Use History: None Reported Past Drug Use History: None Reported - Past Family History Father Family Medical History: Hypertension Brother(s) Family Medical History: Cancer Additional Family Medical History / Comment(s): 2 brothers of cancer. General Exam - General Exam Comments Initial Comments: GENERAL: Patient is well-developed and well-nourished. Patient is nontoxic and well- hydrated and is in mild distress. ENT: Neck is soft and supple. No significant lymphadenopathy is noted. Oropharynx is clear. Moist mucous membranes. Neck has full range of motion without e liciting any pain. EYES: The sclera were anicteric and conjunctiva were pink and moist. Extraocular movements were intact and pupils were equal round and reactive to light. Eyelids were unremarkable. PULMONARY: Unlabored respirations. Good breath sounds bilaterally. No audible rales rhonchi or wheezing was noted. CARDIOVASCULAR: There is a regular rate and rhythm without any murmurs gallops or rubs. ABDOMEN: Soft and nontender with normal bowel sounds. SKIN: Skin is clear with no lesions or rashes and otherwise unremarkable. NEUROLOGIC: Patient is alert and oriented x3. Cranial nerves II through XII are grossly intact. Motor and sensory are also intact. Normal speech, volume and content. Symmetrical smile. MUSCULOSKELETAL: Normal extremities with adequate strength and full range of motion. No lower extremity swelling or edema. No calf tenderness. LYMPHATICS: No significant lymphadenopathy is noted PSYCHIATRIC: Normal psychiatric evaluation. Limitations: no limitations Course Vital Signs 08/28/22 17:41 Temperature 97.6 F Pulse Rate 60 Respiratory 20 Rate Blood Pressure 109/59 O2 Sat by Pulse 94 L Oximetry Medical Decision Making - Medical Decision Making EKG was interpreted by pa EKG shows electronically paced rhythm at 60 bpm QRS is 132 QT interval is 516 QTC is 516. Patient's EKG shows no ST segment elevation I did a chest x-ray. Patient's chest x-ray shows pleural effusion on the right side as well as some increased interstitial fullness consistent with pulmonary edema. Patient was given a small dose of Lasix. Patient has no chest pain at this time however because he gets chest pain with exertion patient will be treated for chest pain and admitted. I spoke with Dr. Brown he agreed with the patient admitted the patient wrote admitting orders. - Lab Data Result diagrams: 08/28/22 18:09 08/28/22 18:09 Lab Results 08/28/22 08/28/22 08/28/22 Range/Units 18:09 18:09 18:09 WBC 6.1 (3.8-10.6) k/uL RBC 3.41 L (4.30-5.90) m/uL Hgb 10.6 L (13.0-17.5) gm/dL Hct 32.5 L (39.0-53.0) % MCV 95.5 (80.0-100.0) fL MCH 31.2 (25.0-35.0) pg MCHC 32.7 (31.0-37.0) g/dL RDW 15.7 H (11.5-15.5) % Plt Count 250 (150-450) k/uL MPV 7.6 Neutrophils % 72 % Lymphocytes % 9 % Monocytes % 10 % Eosinophils % 6 % Basophils % 1 % Neutrophils # 4.4 (1.3-7.7) k/uL Lymphocytes # 0.6 L (1.0-4.8) k/uL Monocytes # 0.6 (0-1.0) k/uL Eosinophils # 0.4 (0-0.7) k/uL Basophils # 0.0 (0-0.2) k/uL Hypochromasia Moderate PT 14.9 H (9.0-12.0) sec INR 1.4 H (<1.2) APTT 30.0 (22.0-30.0) sec Sodium 139 (137-145) mmol/L Potassium 3.9 (3.5-5.1) mmol/L Chloride 98 (98-107) mmol/L Carbon Dioxide 32 H (22-30) mmol/L Anion Gap 9 mmol/L BUN 23 H (9-20) mg/dL Creatinine 2.91 H (0.66-1.25) mg/dL Est GFR (CKD-EPI)AfAm 23 (>60 ml/min/1.73 sqM) Est GFR (CKD-EPI)NonAf 20 (>60 ml/min/1.73 sqM) Glucose 116 H (74-99) mg/dL Calcium 8.9 (8.4-10.2) mg/dL Total Bilirubin 0.7 (0.2-1.3) mg/dL AST 23 (17-59) U/L ALT 21 (4-49) U/L Alkaline Phosphatase 66 (38-126) U/L Troponin I (0.000-0.034) ng/mL Total Protein 7.8 (6.3-8.2) g/dL Albumin 4.5 (3.5-5.0) g/dL 08/28/22 Range/Units 18:09 WBC (3.8-10.6) k/uL RBC (4.30-5.90) m/uL Hgb (13.0-17.5) gm/dL Hct (39.0-53.0) % MCV (80.0-100.0) fL MCH (25.0-35.0) pg MCHC (31.0-37.0) g/dL RDW (11.5-15.5) % Plt Count (150-450) k/uL MPV Neutrophils % % Lymphocytes % % Monocytes % % Eosinophils % % Basophils % % Neutrophils # (1.3-7.7) k/uL Lymphocytes # (1.0-4.8) k/uL Monocytes # (0-1.0) k/uL Eosinophils # (0-0.7) k/uL Basophils # (0-0.2) k/uL Hypochromasia PT (9.0-12.0) sec INR (<1.2) APTT (22.0-30.0) sec Sodium (137-145) mmol/L Potassium (3.5-5.1) mmol/L Chloride (98-107) mmol/L Carbon Dioxide (22-30) mmol/L Anion Gap mmol/L BUN (9-20) mg/dL Creatinine (0.66-1.25) mg/dL Est GFR (CKD-EPI)AfAm (>60 ml/min/1.73 sqM) Est GFR (CKD-EPI)NonAf (>60 ml/min/1.73 sqM) Glucose (74-99) mg/dL Calcium (8.4-10.2) mg/dL Total Bilirubin (0.2-1.3) mg/dL AST (17-59) U/L ALT (4-49) U/L Alkaline Phosphatase (38-126) U/L Troponin I 0.029 (0.000-0.034) ng/mL Total Protein (6.3-8.2) g/dL Albumin (3.5-5.0) g/dL Disposition Clinical Impression: Acute pulmonary edema, Chest pain Disposition: ADMITTED IP TO THIS HOSP Referrals: Alvaro Foster MD [Primary Care Provider] - 1-2 days Time of Disposition: 19:22
[2022-08-28] MEDS ORDERED: FUROSEMIDE 10 MG/ML 2 ML VIAL IV ONE (19:20)
[2022-08-28] MEDS ORDERED: NITROGLYCERIN SL TABS 0.4 MG TAB SUBLINGUAL PRN (19:22)
[2022-08-29] MEDS: NITROGLYCERIN OINT 1 INCH/GM PACKET TOPICAL SCH ×3 (01:35→05:58)
[2022-08-29] MEDS ORDERED: FUROSEMIDE 40 MG TAB PO SCH (09:00)
[2022-08-29] MEDS ORDERED: ASPIRIN 325 MG TAB PO SCH (09:00)
--- NOTE | 2022-08-29 10:45 | P.NPCON ---
History of Present Illness - Reason for Consult end stage renal disease - History of Present Illness Reason for consultation: End-stage renal disease History of present illness: Patient is a 77-year-old male seen in renal consultation for end-stage renal disease. He is maintained on hemodialysis on Saturday schedule. Patient completed hemodialysis yesterday due to holiday schedule and felt more short of breath after the treatment. Patient states he's been having intermittent shortness of breath since he was diagnosed with COVID-19 infection. Denies fever or chills. Does admit to a productive cough. Chest x-ray suggestive of mild heart failure with pleural effusions. Currently awake and alert. Denies edema in the lower extremities. BNP elevated at 23,300. Echocardiogram ordered. Vital signs are stable. General: Awake. No acute distress. HEENT: Head exam is unremarkable. On nasal cannula. LUNGS: Breath sounds decreased. HEART: Rate and Rhythm are regular. ABDOMEN: Soft, no distention. EXTREMITITES: No edema. Past Medical History Past Medical History: Atrial Fibrillation, Dialysis, Eye Disorder Additional Past Medical History / Comment(s): Kidney Failure- Dialysis MOWEFR. Pacemaker. Cataracts. History of Any Multi-Drug Resistant Organisms: None Reported Past Surgical History: Joint Replacement, Pacemaker Additional Past Surgical History / Comment(s): Cardiac stents, right hip replacement. Past Anesthesia/Blood Transfusion Reactions: No Reported Reaction Type of Cardiac Device: Unknown Device Placement Date:: 2010 Smoking Status: Never smoker - Past Family History Father Family Medical History: Hypertension Brother(s) Family Medical History: Cancer Additional Family Medical History / Comment(s): 2 brothers of cancer. Medications and Allergies Home Medications Medication Instructions Recorded Confirmed Type Aspirin EC [Ecotrin Low Dose] 81 mg PO DAILY 08/04/21 08/28/22 History Calcium Acetate [PhosLo] 1,334 mg PO TID-W/MEALS 08/04/21 08/28/22 History Dialyvite 1 tab PO DAILY 08/04/21 08/28/22 History Furosemide [Lasix] 40 mg PO BID 08/04/21 08/28/22 History Albuterol Sulfate [Proventil Hfa] 2 puff INHALATION RT-Q4H PRN 12/15/21 08/28/22 History Lidocaine-Prilocaine Cream [Emla 1 applic TOPICAL DAILY PRN 12/15/21 08/28/22 Hi story Cream 2.5%/2.5%] Mirtazapine [Remeron] 15 mg PO HS 12/15/21 08/28/22 History Benzonatate [Tessalon Perle] 200 mg PO TID PRN 08/28/22 08/28/22 History Isosorbide Mononitrate ER [Imdur] 30 mg PO DAILY 08/28/22 08/28/22 History Sevelamer Carbonate 1,600 mg PO TID-W/MEALS 08/28/22 08/28/22 History Tiotropium 2.5 Mcg/Puff [Spiriva 1 puff INHALATION RT-DAILY 08/28/22 08/28/22 History Respimat 2.5 Mcg] Warfarin Sodium [Jantoven] 2.5 mg PO HS 08/28/22 08/28/22 History carvediloL [Coreg] 3.125 mg PO BID 08/28/22 08/28/22 History Isosorbide Mononitrate ER [Imdur] 30 mg PO DAILY 08/29/22 08/29/22 History Allergies Allergy/AdvReac Type Severity Reaction Status Date / Time No Known Allergies Allergy Verified 08/28/22 20:06 Physical Exam Vitals: Vital Signs Temp Pulse Pulse Resp BP BP Pulse Ox 08/29/22 08:50 97.5 F L 63 19 135/63 96 08/29/22 04:00 97.6 F 65 17 152/75 98 08/29/22 01:29 60 17 08/29/22 01:27 97.5 F L 60 16 110/66 97 08/28/22 22:00 64 18 98 08/28/22 21:00 60 18 105/59 97 08/28/22 17:46 18 08/28/22 17:41 97.6 F 60 20 109/59 94 L Intake and Output 08/28/22 08/29/22 08/29/22 22:59 06:59 14:59 Intake Total 120 Balance 120 Intake: Oral 120 Other: Voiding Method Urinal Weight 79.379 kg 77 kg Results - Lab Results Most recent lab results Calcium 8.9 mg/dL (8.4-10.2) 08/28/22 18:09 08/28/22 18:09 08/28/22 18:09 Assessment and Plan Plan: Assessment: 1. End-stage renal disease maintained on hemodialysis on Saturday schedule. 2. Acute hypoxic respiratory failure secondary to volume overload. 3. Hypertension with chronic kidney disease. Stable. 4. Chronic kidney disease mineral bone disease. Plan: Extra treatment of hemodialysis today mostly for ultrafiltration. Check phosphorus level. Increase Lasix to 80 mg twice daily. Follow-up echocardiogram. Thank you for the consultation. I will continue to follow the patient with you during his hospital stay.
--- NOTE | 2022-08-29 10:58 | P.CRDCN ---
History of Present Illness History of present illness: HISTORY OF PRESENTING ILLNESS This is a pleasant 77-year-old male past medical history significant for end- stage renal disease on hemodialysis, coronary artery disease status post prior PCI, moderate mitral regurgitation, permanent atrial fibrillation on Coumadin, s/p pacemaker implantation in [facility] many years back per patient, hypertension, dyslipidemia. He follows in the office with Dr. Arredondo. We have been asked to see in consultation for congestive heart failure. Patient presents emergency department with worsening shortness of breath. He states that he's been having these symptoms of shortness of breath for the past 6 months. Since he had Covid- 19 in the past. It is aggravated by activity. He states lately, even walking to the bathroom or 10 steps he feels short of breath. He denies any chest pain, palpitations, lightheadedness, dizziness, syncope or near syncope. He denies any symptoms of orthopnea or PND. He denies any tobacco use. No history of Stroke, diabetes or seizure. DIAGNOSTICS * EKG reveals BI ventricular paced rhythm * Most recent echocardiogram in the office 06/2021 revealed EF 55%, moderate LVH, moderate mitral regurgitation, moderate tricuspid regurgitation, pulmonary artery systolic pressure 51 mmHg * Lexiscan stress test in the office to 06/2021 revealed no evidence of reversible ischemia * Chest xray mild pulmonary vascular congestion * Laboratory reviewed, WBC 6.1, hemoglobin 10.6, platelets 250, sodium 139, potassium 2.9, BUN 23, serum current 2.9, troponin negative 3, proBNP 23,300 * Current home cardiac medications include Imdur 30 mg daily, warfarin 2.5 mg nightly, carvedilol 3.125 mg twice a day, Lasix 40 mg twice a day, aspirin 81 mg daily REVIEW OF SYSTEMS At the time of my exam: CONSTITUTIONAL: Denies fever or chills. CARDIOVASCULAR: Denies chest pain, +shortness of breath, Denies orthopnea, PND or palpitations. RESPIRATORY: Denies cough. GASTROINTESTINAL: Denies abdominal pain, diarrhea, constipation, nausea or vomiting. MUSCULOSKELETAL: Denies myalgias. NEUROLOGIC: Denies numbness, tingling, headacbe or weakness. ENDOCRINE: Denies fatigue, weight change, polydipsia or polyurina. GENITOURINARY: Denies burning, hematuria or urgency with micturation. HEMATOLOGIC: Denies history of anemia or bleeding. PHYSICAL EXAMINATION Blood pressure 135/63, heart rate 63, afebrile, saturations 96% on 3 L nasal cannula CONSTITUTIONAL: No apparent distress. HEENT: Head is normocephalic. Pupils are equal, round. Sclerae anicteric. Mucous membranes of the mouth are moist. No JVD. No carotid bruit. CHEST EXAMINATION: Lungs are diminished in the bases to auscultation. No chest wall tenderness is noted on palpation or with deep breathing. HEART EXAMINATION: Regular rate and rhythm. S1, S2 heard. Systolic murmur at apex, No gallops or rub. ABDOMEN: Soft, nontender. Positive bowel sounds. EXTREMITIES: 2+ peripheral pulses, no lower extremity edema and no calf tenderness. Left upper extremity AV fistula NEUROLOGIC EXAMINATION: Patient is awake, alert and oriented x3. ASSESSMENT Chronic heart failure with preserved ejection fraction Moderate mitral regurgitation End stage renal disease on hemodialysis Coronary artery disease status post prior PCI Permanent atrial fibrillation on Coumadin Subtherapeutic INR History of pacemaker implantation Hypertension Dyslipidemia PLAN Obtain 2D echocardiogram and doppler study to assess cardiac structure and function. PO Lasix increased 80mg BID per nephrology Plan for hemodialysis today Increase coumadin to 5mg nightly Monitor INR Continue home cardiac medications Further recommendations based on clinical course Nurse practitioner note has been reviewed by physician. Signing provider agrees with the documented findings, assessment, and plan of care. Past Medical History Past Medical History: Atrial Fibrillation, Dialysis, Eye Disorder Additional Past Medical History / Comment(s): Kidney Failure- Dialysis MOWEFR. Pacemaker. Cataracts. History of Any Multi-Drug Resistant Organisms: None Reported Past Surgical History: Joint Replacement, Pacemaker Additional Past Surgical History / Comment(s): Cardiac stents, right hip replacement. Past Anesthesia/Blood Transfusion Reactions: No Reported Reaction Type of Cardiac Device: Unknown Device Placement Date:: 2010 Smoking Status: Never smoker - Past Family History Father Family Medical History: Hypertension Brother(s) Family Medical History: Cancer Additional Family Medical History / Comment(s): 2 brothers of cancer. Medications and Allergies Home Medications Medication Instructions Recorded Confirmed Type Aspirin EC [Ecotrin Low Dose] 81 mg PO DAILY 08/04/21 08/28/22 History Calcium Acetate [PhosLo] 1,334 mg PO TID-W/MEALS 08/04/21 08/28/22 History Dialyvite 1 tab PO DAILY 08/04/21 08/28/22 History Furosemide [Lasix] 40 mg PO BID 08/04/21 08/28/22 History Albuterol Sulfate [Proventil Hfa] 2 puff INHALATION RT-Q4H PRN 12/15/21 08/28/22 History Lidocaine-Prilocaine Cream [Emla 1 applic TOPICAL DAILY PRN 12/15/21 08/28/22 History Cream 2.5%/2.5%] Mirtazapine [Remeron] 15 mg PO HS 12/15/21 08/28/22 History Benzonatate [Tessalon Perle] 200 mg PO TID PRN 08/28/22 08/28/22 History Isosorbide Mononitrate ER [Imdur] 30 mg PO DAILY 08/28/22 08/28/22 History Sevelamer Carbonate 1,600 mg PO TID-W/MEALS 08/28/22 08/28/22 History Tiotropium 2.5 Mcg/Puff [Spiriva 1 puff INHALATION RT-DAILY 08/28/22 08/28/22 History Respimat 2.5 Mcg] Warfarin Sodium [Jantoven] 2.5 mg PO HS 08/28/22 08/28/22 History carvediloL [Coreg] 3.125 mg PO BID 08/28/22 08/28/22 History Isosorbide Mononitrate ER [Imdur] 30 mg PO DAILY 08/29/22 08/29/22 History Allergies Allergy/AdvReac Type Severity Reaction Status Date / Time No Known Allergies Allergy Verified 08/28/22 20:06 Physical Exam Vitals: Vital Signs Temp Pulse Pulse Resp BP BP Pulse Ox 08/29/22 04:00 97.6 F 65 17 152/75 98 08/29/22 01:29 60 17 08/29/22 01:27 97.5 F L 60 16 110/66 97 08/28/22 22:00 64 18 98 08/28/22 21:00 60 18 105/59 97 08/28/22 17:46 18 08/28/22 17:41 97.6 F 60 20 109/59 94 L Intake and Output 08/28/22 08/29/22 08/29/22 22:59 06:59 14:59 Intake Total 120 Balance 120 Intake: Oral 120 Other: Voiding Method Urinal Weight 79.379 kg 77 kg Results 08/28/22 18:09 08/28/22 18:09 Cardiac Enzymes 08/28/22 08/28/22 08/28/22 Range/Units 18:09 18:09 19:17 AST 23 (17-59) U/L Troponin I 0.029 0.020 (0.000-0.034) ng/mL 08/28/22 Range/Units 23:44 AST (17-59) U/L Troponin I 0.026 (0.000-0.034) ng/mL Coagulation 08/28/22 Range/Units 18:09 PT 14.9 H (9.0-12.0) sec APTT 30.0 (22.0-30.0) sec CBC 08/28/22 Range/Units 18:09 WBC 6.1 (3.8-10.6) k/uL RBC 3.41 L (4.30-5.90) m/uL Hgb 10.6 L (13.0-17.5) gm/dL Hct 32.5 L (39.0-53.0) % Plt Count 250 (150-450) k/uL Comprehensive Metabolic Panel 08/28/22 Range/Units 18:09 Sodium 139 (137-145) mmol/L Potassium 3.9 (3.5-5.1) mmol/L Chloride 98 (98-107) mmol/L Carbon Dioxide 32 H (22-30) mmol/L BUN 23 H (9-20) mg/dL Creatinine 2.91 H (0.66-1.25) mg/dL Glucose 116 H (74-99) mg/dL Calcium 8.9 (8.4-10.2) mg/dL AST 23 (17-59) U/L ALT 21 (4-49) U/L Alkaline Phosphatase 66 (38-126) U/L Total Protein 7.8 (6.3-8.2) g/dL Albumin 4.5 (3.5-5.0) g/dL Current Medications Generic Name Dose Route Start Last Admin Trade Name Freq PRN Reason Stop Dose Admin Carvedilol 3.125 mg 08/29/22 09:00 Carvedilol 3.125 Mg Tab PO BID GUILLERMO Isosorbide Mononitrate 30 mg 08/29/22 09:00 Isosorbide Mononitrate Er 30 Mg Tab.Er.24h PO DAILY [facility] Mirtazapine 15 mg 08/29/22 21:00 Mirtazapine 15 Mg Tab PO HS [facility] Nitroglycerin 0.4 mg 08/28/22 19:22 Nitroglycerin Sl Tabs 0.4 Mg Tab SUBLINGUAL Q5M PRN Chest Pain Non-Formulary Medication 81 mg 08/29/22 09:00 Aspirin Ec PO DAILY [facility] Warfarin Sodium 5 mg 08/29/22 21:00 Warfarin 2.5 Mg Tab PO HS [facility] Protocol Intake and Output 08/28/22 08/29/22 08/29/22 22:59 06:59 14:59 Intake Total 120 Balance 120 Intake: Oral 120 Other: Voiding Method Urinal Weight 79.379 kg 77 kg 08/28/22 18:09 08/28/22 18:09
[2022-08-29 12:57] LABS: INR 1.6 (<1.2); Prothrombin Time 16.7 sec (9.0-12.0)
[2022-08-29] MEDS: carvediloL 3.125 MG TAB PO SCH ×2 (15:46→17:27)
[2022-08-29] MEDS: ASPIRIN 81 MG PO SCH (15:51)
[2022-08-29] MEDS: FUROSEMIDE 80 MG TAB PO SCH (15:51)
[2022-08-29] MEDS: ISOSORBIDE MONONITRATE ER 30 MG TAB.ER.24H PO SCH (15:51)
[2022-08-29 16:03] LABS: LDL Cholesterol,Calculated 107.3 mg/dL (0.0-131.0); VLDL Calculation 15.56 mg/dL (5.00-40.00)
[2022-08-29] MEDS ORDERED: BENZONATATE 100 MG CAP PO PRN (16:49)
--- NOTE | 2022-08-29 18:02 | CA ---
Transthoracic Echo Report Name: Lionel Fair Age: 77 Gender: M : 1945 Exam Date: 08/29/2022 11:22 Exam Location: [facility] Ht (in): 70 Wt (lb): 169 Ordering Physician: Valerie Mistry Attending/Referring Phys: Painter Helper Sign Chrystal Bang RDCS Procedure CPT: Indications: LV function, shortness of breath Cardiac Hx: Technical Quality: Contrast 1: Total Dose (mL): Contrast 2: Total Dose (mL): MEASUREMENTS (Male / Female) Normal Values 2D ECHO LV Diastolic Diameter PLAX 5.1 cm 4.2 - 5.9 / 3.9 - 5.3 cm LV Systolic Diameter PLAX 3.0 cm IVS Diastolic Thickness 1.6 cm 0.6 - 1.0 / 0.6 - 0.9 cm LVPW Diastolic Thickness 1.6 cm 0.6 - 1.0 / 0.6 - 0.9 cm LV Relative Wall Thickness 0.6 RV Internal Dim ED PLAX 3.0 cm LA Volume 126.6 cm??? 18 - 58 / 22 - 52 cm??? M-MODE Aortic Root Diameter MM 3.2 cm LA Systolic Diameter MM 5.0 cm LA Ao Ratio MM 1.5 AV Cusp Separation MM 1.6 cm DOPPLER AV Peak Velocity 172.7 cm/s AV Peak Gradient 11.9 mmHg AV Mean Velocity 116.3 cm/s AV Mean Gradient 6.0 mmHg AV Velocity Time Integral 35.9 cm LVOT Peak Velocity 153.5 cm/s LVOT Peak Gradient 9.4 mmHg LVOT Velocity Time Integral 34.9 cm MV Peak Velocity 189.9 cm/s MV Peak Gradient 14.4 mmHg MV Mean Velocity 83.5 cm/s MV Mean Gradient 4.0 mmHg MV Velocity Time Integral 46.7 cm MV Area PHT 2.9 cm??? MR Peak Velocity 517.6 cm/s MR Peak Gradient 107.1 mmHg Mitral E Point Velocity 154.9 cm/s Mitral A Point Velocity 0.9 cm/s Mitral E to A Ratio 178.7 MV Deceleration Time 264.9 ms MV E' Velocity 5.5 cm/s Mitral E to MV E' Ratio 28.1 TR Peak Velocity 377.3 cm/s TR Peak Gradient 56.9 mmHg Right Atrial Pressure 20.0 mmHg Pulmonary Artery Systolic Pressu 76.9 mmHg Right Ventricular Systolic Press 76.9 mmHg FINDINGS Left Ventricle Moderately increased left ventricular wall thickness. Left ventricular ejection fraction is estimated at 50%. Right Ventricle Normal right ventricular size and function. Severe pulmonary hypertension. Right ventricular systolic pressure estimated at 61 mm hg. Right Atrium Moderate right atrial dilatation. Left Atrium Severely increased left atrial volume. Moderately increased left atrial area. Moderately increased left atrial area. Mitral Valve Mitral valve thickened. Moderate mitral annular calcification. Moderate to severe mitral regurgitation. Centrally directed mitral regurgitation jet. Aortic Valve Trileaflet aortic valve. No aortic stenosis. No aortic regurgitation. Thickened aortic valve without stenosis. Aortic valve sclerosis. Tricuspid Valve Structurally normal tricuspid valve. [id number] tricuspid regurgitation. Pulmonic Valve Mild pulmonic regurgitation. Pericardium No pericardial effusion. Aorta Normal size aortic root and proximal ascending aorta. CONCLUSIONS Moderately increased left ventricular wall thickness Left ventricular ejection fraction 50% RVSP 61 Severely dilated left atrium Moderate mitral annular calcification Moderate to severe mitral regurgitation. Consider HARISH if clinically indicated Moderate to severe tricuspid regurgitation No pericardial effusion Previewed by: Dr. Matthew Ma DO (Electronically Signed) Final Date: 29 August 2022 18:01
[2022-08-29 18:13] LABS: Hepatitis B Surface AB- Quant 56.8 mIU/mL; Hepatitis B Surface Antibody Reactive (Nonreactive)
[2022-08-29 18:36] LABS: Hepatitis B Surface Antigen Nonreactive (Nonreactive)
[2022-08-29] MEDS ORDERED: WARFARIN 2.5 MG TAB PO SCH (21:00)
[2022-08-29] MEDS: MIRTAZAPINE 15 MG TAB PO SCH (22:02)
[2022-08-29] MEDS: WARFARIN 5 MG TAB PO SCH (22:02)
--- NOTE | 2022-08-29 22:36 | P.HPIM ---
History of Present Illness H&P Date: 08/29/22 Chief Complaint: shortness of breath Lionel Fair is a 77-year-old male with PMH ofend-stage renal disease on hemodialysis, coronary artery disease s/p stenting, Atrial fibrillation on Coumadin, s/p pacemaker implantation, hypertension, who presented to the ED with worsening shortness of breath. He feels that ever since he had Covid approximately 6 months ago he has been overall more weak and winded. He complains that with any normal daily activity he has to stop and rest, even with walking short distanced around his house he feels short of breath. He denies any chest pain, palpitations, lightheadedness, dizziness, syncope or near syncope. He denies orthopnea or PND. He denies any tobacco use. On presentation vitals stable, EKG with paced rhythm, CXR with small pleural effusions. WBC 6k, Hgb 10, Cr 2.9, at baseline BNP 23k. Review of Systems All systems: negative Constitutional: Reports malaise, Reports weakness, Denies chills, Denies fever Eyes: denies blurred vision, denies pain Ears, nose, mouth and throat: Denies headache, Denies sore throat Cardiovascular: Reports decreased exercise tolerance, Reports dyspnea on exertion, Reports shortness of breath, Denies chest pain Respiratory: Reports dyspnea, Denies cough Gastrointestinal: Denies abdominal pain, Denies diarrhea, Denies nausea, Denies vomiting Musculoskeletal: Denies myalgias Integumentary: Denies pruritus, Denies rash Neurological: Denies numbness, Denies weakness Psychiatric: Denies anxiety, Denies depression Endocrine: Denies fatigue, Denies weight change Past Medical History Past Medical History: Atrial Fibrillation, Dialysis, Eye Disorder Additional Past Medical History / Comment(s): Kidney Failure- Dialysis MOWEFR. Pacemaker. Cataracts. History of Any Multi-Drug Resistant Organisms: None Reported Past Surgical History: Joint Replacement, Pacemaker Additional Past Surgical History / Comment(s): Cardiac stents, right hip replacement. Past Anesthesia/Blood Transfusion Reactions: No Reported Reaction Type of Cardiac Device: Unknown Device Placement Date:: 2010 Smoking Status: Never smoker - Past Family History Father Family Medical History: Hypertension Brother(s) Family Medical History: Cancer Additional Family Medical History / Comment(s): 2 brothers of cancer. Medications and Allergies Home Medications Medication Instructions Recorded Confirmed Type Aspirin EC [Ecotrin Low Dose] 81 mg PO DAILY 08/04/21 08/28/22 History Calcium Acetate [PhosLo] 1,334 mg PO TID-W/MEALS 08/04/21 08/28/22 History Dialyvite 1 tab PO DAILY 08/04/21 08/28/22 History Furosemide [Lasix] 40 mg PO BID 08/04/21 08/28/22 History Albuterol Sulfate [Proventil Hfa] 2 puff INHALATION RT-Q4H PRN 12/15/21 08/28/22 History Lidocaine-Prilocaine Cream [Emla 1 applic TOPICAL DAILY PRN 12/15/21 08/28/22 History Cream 2.5%/2.5%] Mirtazapine [Remeron] 15 mg PO HS 12/15/21 08/28/22 History Benzonatate [Tessalon Perle] 200 mg PO TID PRN 08/28/22 08/28/22 History Isosorbide Mononitrate ER [Imdur] 30 mg PO DAILY 08/28/22 08/28/22 History Sevelamer Carbonate 1,600 mg PO TID-W/MEALS 08/28/22 08/28/22 History Tiotropium 2.5 Mcg/Puff [Spiriva 1 puff INHALATION RT-DAILY 08/28/22 08/28/22 History Respimat 2.5 Mcg] Warfarin Sodium [Jantoven] 2.5 mg PO HS 08/28/22 08/28/22 History carvediloL [Coreg] 3.125 mg PO BID 08/28/22 08/28/22 History Isosorbide Mononitrate ER [Imdur] 30 mg PO DAILY 08/29/22 08/29/22 History Allergies Allergy/AdvReac Type Severity Reaction Status Date / Time No Known Allergies Allergy Verified 08/28/22 20:06 Physical Exam Vitals: Vital Signs Temp Pulse Resp BP Pulse Ox 08/29/22 16:35 96.8 F L 60 16 154/71 08/29/22 14:57 98.2 F 60 18 146/63 99 08/29/22 14:00 62 18 08/29/22 08:50 97.5 F L 63 19 135/63 96 08/29/22 08:00 60 18 08/29/22 04:00 97.6 F 65 17 152/75 98 08/29/22 01:29 60 17 08/29/22 01:27 97.5 F L 60 16 110/66 97 Intake and Output 08/29/22 08/29/22 08/29/22 06:59 14:59 22:59 Intake Total 120 120 618 Output Total 3000 Balance 120 120 -2382 Intake: Oral 120 120 118 Hemodialysis 500 Output: Hemodialysis 3000 Other: Voiding Method Urinal Urinal Weight 77 kg General: well nourished, well developed, NAD. Vitals reviewed Eyes: PERRL, EOMI, conjunctiva normal HENT: normocephalic, mucus membranes moist Neck: supple, no JVD Lungs: normal respiratory effort, no wheezes or rales CV: Irregular, no murmur. Peripheral pulses 2+. No edema Abdomen: soft, nondistended, no organomegaly Lymph: no cervical or axillary LAD Skin: warm and dry. Neuro: A&Ox3, normal mood and affect Results CBC & Chem 7: 08/28/22 18:09 08/28/22 18:09 Labs: Abnormal Lab Results - Last 24 Hours (Table) 08/29/22 08/29/22 08/29/22 Range/Units 08:29 11:00 11:00 PT 16.7 H (9.0-12.0) sec INR 1.6 H (<1.2) HDL Cholesterol 34.10 L (40.00-60.00) mg/dL Hep Bs Antibody Reactive A (Nonreactive) Thrombosis Risk Factor Assmnt - Choose All That Apply Each Factor Represents 1 point: Obesity (BMI >25) Other Risk Factors: Yes Each Risk Factor Represents 3 Points: Age 75 years or older Other congenital or acquired thrombophilia - If yes, enter type in comment: No Thrombosis Risk Factor Assessment Total Risk Factor Score: 4 Thrombosis Risk Factor Assessment Level: Moderate Risk Assessment and Plan Plan: 1. Acute on chronic diastolic CHF. Admit, consult Cardiology. Obtain echo. Increase lasix to 80 mg bid. Continue home Coreg 2. ESRD on HD. Nephrology consult. Continue phos-lo and sevalemer. HD per Nephro 3. A Fib. Continue coumadin, follow INR
[2022-08-30] MEDS: CALCIUM ACETATE 667 MG TAB PO SCH ×3 (06:05→16:28)
[2022-08-30] MEDS: SEVELAMER 800 MG TAB PO SCH ×3 (06:05→16:29)
[2022-08-30] MEDS: carvediloL 3.125 MG TAB PO SCH ×2 (06:05→16:29)
[2022-08-30] MEDS: FUROSEMIDE 80 MG TAB PO SCH ×2 (08:56→16:28)
[2022-08-30] MEDS: ASPIRIN 81 MG PO SCH (08:56)
[2022-08-30] MEDS: ISOSORBIDE MONONITRATE ER 30 MG TAB.ER.24H PO SCH (08:56)
--- NOTE | 2022-08-30 10:25 | P.PN ---
Subjective Patient is seen in follow-up for end-stage renal disease. He is maintained on hemodialysis on Saturday schedule. Tolerated 3 L ultrafiltration yesterday. Currently on 3 L nasal cannula. Blood pressure stable. Denies chest pain or shortness of breath. Vital signs are stable. General: Awake. No acute distress. HEENT: Head exam is unremarkable. LUNGS: Breath sounds decreased. HEART: Rate and Rhythm are regular. ABDOMEN: Soft, no distention. EXTREMITITES: No edema. Objective - Vital Signs Vital signs: Vital Signs Temp 97.7 F 08/30/22 08:53 Pulse 65 08/30/22 08:55 Resp 15 08/30/22 08:53 BP 113/60 08/30/22 08:53 Pulse Ox 93 L 08/30/22 08:53 FiO2 Intake & Output 08/29/22 08/30/22 08/30/22 18:59 06:59 18:59 Intake Total 738 200 118 Output Total 3000 Balance -2262 200 118 Weight 74.8 kg Intake: Oral 238 200 118 Hemodialysis 500 Output: Hemodialysis 3000 Other: Voiding Method Urinal Urinal Urinal - Labs CBC & Chem 7: 08/28/22 18:09 08/28/22 18:09 Labs: Abnormal Lab Results - Last 24 Hours (Table) 08/29/22 08/29/22 08/29/22 Range/Units 08:29 11:00 11:00 PT 16.7 H (9.0-12.0) sec INR 1.6 H (<1.2) HDL Cholesterol 34.10 L (40.00-60.00) mg/dL Hep Bs Antibody Reactive A (Nonreactive) Assessment and Plan Plan: Assessment: 1. End-stage renal disease maintained on hemodialysis on Saturday schedule. 2. Acute hypoxic respiratory failure secondary to volume overload. 3. Hypertension with chronic kidney disease. Stable. 4. Chronic kidney disease mineral bone disease. Phosphorus 4.4 dated . 5. Acute on chronic diastolic CHF with severe pulmonary hypertension and moderate to severe mitral and tricuspid regurgitation. Plan: Hemodialysis tomorrow. Maintain Lasix 80 mg twice daily. Continue to challenge UF. Dry weight will be lowered outpatient.
--- NOTE | 2022-08-30 11:08 | P.PN ---
Subjective From records Lionel Fair is a 77-year-old male with PMH ofend-stage renal disease on hemodialysis, coronary artery disease s/p stenting, Atrial fibrillation on Coumadin, s/p pacemaker implantation, hypertension, who presented to the ED with worsening shortness of breath. He feels that ever since he had Covid approximately 6 months ago he has been overall more weak and winded. He complains that with any normal daily activity he has to stop and rest, even with walking short distanced around his house he feels short of breath. He denies any chest pain, palpitations, lightheadedness, dizziness, syncope or near syncope. He denies orthopnea or PND. He denies any tobacco use. On presentation vitals stable, EKG with paced rhythm, CXR with small pleural effusions. WBC 6k, Hgb 10, Cr 2.9, at baseline BNP 23k. Subjective: 08/30/2022 Pleasant end-stage renal disease on hemodialysis presents with worsening dyspnea over 6 months on and off as he is telling me this morning, however this dyspnea affected his function as he states, he is associated with cough and clear phlegm over the last 3 months and on admission also he had some chest heaviness and burning sensation about 6/10 currently resolved 0/10.He says there is no relation office chest pain to food He is on Coumadin and check his INR level with his PCP Dr. Foster. Labs from today are still pending Patient denies diarrhea, his stool brown black or nonbloody. No abdominal pain. No vomiting. No urinary complaints. He says that he has history of lung disease and he used to see Dr. Waldron but workup was unremarkable. Chest x-ray mild CHF Objective - Vital Signs Vital signs: Vital Signs Temp 97.7 F 08/30/22 08:53 Pulse 65 08/30/22 08:55 Resp 15 08/30/22 08:53 BP 113/60 08/30/22 08:53 Pulse Ox 93 L 08/30/22 08:53 FiO2 Intake & Output 08/29/22 08/30/22 08/30/22 18:59 06:59 18:59 Intake Total 738 200 118 Output Total 3000 Balance -2262 200 118 Weight 74.8 kg Intake: Oral 238 200 118 Hemodialysis 500 Output: Hemodialysis 3000 Other: Voiding Method Urinal Urinal Urinal - Exam -GENERAL: The patient is alert and oriented x3, not in any acute distress. Well developed, well nourished. Generally weak HEENT: Pupils are round and equally reacting to light. EOMI. No scleral icterus. No conjunctival pallor. Normocephalic, atraumatic. No pharyngeal erythema. No thyromegaly. CARDIOVASCULAR: S1 and S2 present. No murmurs, rubs, or gallops. PULMONARY: Chest is clear to auscultation, no wheezing or crackles. ABDOMEN: Soft, nontender, nondistended, normoactive bowel sounds. No palpable organomegaly. MUSCULOSKELETAL: No joint swelling or deformity. EXTREMITIES: No cyanosis, clubbing, or pedal edema. NEUROLOGICAL: Gross neurological examination did not reveal any focal deficits. SKIN: No rashes. no petechiae. - Labs CBC & Chem 7: 08/28/22 18:09 08/28/22 18:09 Labs: Abnormal Lab Results - Last 24 Hours (Table) 08/29/22 08/29/22 08/29/22 Range/Units 08:29 11:00 11:00 PT 16.7 H (9.0-12.0) sec INR 1.6 H (<1.2) HDL Cholesterol 34.10 L (40.00-60.00) mg/dL Hep Bs Antibody Reactive A (Nonreactive) Assessment and Plan Assessment: Chest pressure/burning, improved Anemia Gradually and mildly worsening chronic diastolic CHF, with a fluid overload (acute on chronic). Ejection fraction 50% End-stage renal disease on hemodialysis Moderate to severe TR and MR Chronic atrial fibrillation on Coumadin at home History of coronary artery disease status post PCI Subtherapeutic INR Plan: Until the patient's with his chest burning and anemia while being on aspirin and Coumadin requirement her dose we need to check for any signs of bleeding, anemia workup requested, patient says he did not have colonoscopy/EGD before. Check occult blood in stool Log Roper on the case as well as program support clerk Continue with hemodialysis as recommended Lasix dose increased 40 mg up to 8 mg twice daily (patient makes little urine anyway) coumadine pharmacy to dose with monitoring INR Labs and medication were reviewed.. Continue same treatment. Continue with symptomatic treatment. Resume home medication. Monitor labs and vitals. DVT and GI prophylaxis. Further recommendations as per clinical course of the patient DVT prophylaxis On Coumadin GI Prophylaxis: Ppi PT/OT: Pending Prognosis is guarded
[2022-08-30 11:38] LABS: Calcium 9.6 mg/dL (8.4-10.2); Potassium 4.5 mmol/L (3.5-5.1)
[2022-08-30 11:50] LABS: INR 1.6 (<1.2); Prothrombin Time 16.1 sec (9.0-12.0)
[2022-08-30] MEDS: PANTOPRAZOLE 40 MG/10 ML VIAL IVP SCH (12:01)
--- NOTE | 2022-08-30 13:41 | P.PN ---
Subjective HISTORY OF PRESENTING ILLNESS This is a pleasant 77-year-old male past medical history significant for end- stage renal disease on hemodialysis, coronary artery disease status post prior PCI, moderate mitral regurgitation, permanent atrial fibrillation on Coumadin, s/p pacemaker implantation in [facility] many years back per patient, hypertension, dyslipidemia. He follows in the office with Dr. Arredondo. We have been asked to see in consultation for congestive heart failure. Patient presents emergency department with worsening shortness of breath. He states that he's been having these symptoms of shortness of breath for the past 6 months. Since he had Covid- 19 in the past. It is aggravated by activity. He states lately, even walking to the bathroom or 10 steps he feels short of breath. He denies any chest pain, palpitations, lightheadedness, dizziness, syncope or near syncope. He denies any symptoms of orthopnea or PND. He denies any tobacco use. No history of Stroke, diabetes or seizure. DIAGNOSTICS * EKG reveals BI ventricular paced rhythm * Most recent echocardiogram in the office 06/2021 revealed EF 55%, moderate LVH, moderate mitral regurgitation, moderate tricuspid regurgitation, pulmonary artery systolic pressure 51 mmHg * Lexiscan stress test in the office to 06/2021 revealed no evidence of reversible ischemia * Chest xray mild pulmonary vascular congestion * Laboratory reviewed, WBC 6.1, hemoglobin 10.6, platelets 250, sodium 139, potassium 2.9, BUN 23, serum current 2.9, troponin negative 3, proBNP 23,300 * Current home cardiac medications include Imdur 30 mg daily, warfarin 2.5 mg nightly, carvedilol 3.125 mg twice a day, Lasix 40 mg twice a day, aspirin 81 mg daily 08/30 Patient seen and examined. Patient underwent dialysis yesterday and feels much better. Denies any chest pain or pressure. Still having significant dyspnea. No cough. No fevers or chills. PHYSICAL EXAMINATION Vitals reviewed CONSTITUTIONAL: No apparent distress. HEENT: Head is normocephalic. Pupils are equal, round. Sclerae anicteric. Mucous membranes of the mouth are moist. No JVD. No carotid bruit. CHEST EXAMINATION: Lungs are diminished in the bases to auscultation. No chest wall tenderness is noted on palpation or with deep breathing. HEART EXAMINATION: Regular rate and rhythm. S1, S2 heard. Systolic murmur at apex, No gallops or rub. ABDOMEN: Soft, nontender. Positive bowel sounds. EXTREMITIES: 2+ peripheral pulses, no lower extremity edema and no calf tenderness. Left upper extremity AV fistula NEUROLOGIC EXAMINATION: Patient is awake, alert and oriented x3. ASSESSMENT Acute on chronic heart failure with preserved ejection fraction Moderate to severe mitral regurgitation End stage renal disease on hemodialysis Coronary artery disease status post prior PCI Permanent atrial fibrillation on Coumadin Subtherapeutic INR History of pacemaker implantation Hypertension Dyslipidemia Pulmonary hypertension likely related to heart failure PLAN Continue with diuresis/ dialysis and monitor results Continue coumadin, monitor INR Patient does have moderate to severe mitral regurgitation and may consider HARISH once more stable however this may be done as an outpatient Objective - Vital Signs Vital signs: Vital Signs Temp 97.7 F 08/30/22 08:53 Pulse 60 08/30/22 12:11 Resp 15 08/30/22 08:53 BP 130/80 08/30/22 12:11 Pulse Ox 95 08/30/22 12:11 FiO2 Intake & Output 08/29/22 08/30/22 08/30/22 18:59 06:59 18:59 Intake Total 738 200 118 Output Total 3000 Balance -2262 200 118 Weight 74.8 kg Intake: Oral 238 200 118 Hemodialysis 500 Output: Hemodialysis 3000 Other: Voiding Method Urinal Urinal Urinal # Bowel Movements 1 - Labs CBC & Chem 7: 08/28/22 18:09 08/30/22 10:57 Labs: Abnormal Lab Results - Last 24 Hours (Table) 08/29/22 08/29/22 08/30/22 Range/Units 08:29 11:00 10:57 PT 16.1 H (9.0-12.0) sec INR 1.6 H (<1.2) Carbon Dioxide (22-30) mmol/L BUN (9-20) mg/dL Creatinine (0.66-1.25) mg/dL Glucose (74-99) mg/dL HDL Cholesterol 34.10 L (40.00-60.00) mg/dL Hep Bs Antibody Reactive A (Nonreactive) 08/30/22 Range/Units 10:57 PT (9.0-12.0) sec INR (<1.2) Carbon Dioxide 31 H (22-30) mmol/L BUN 28 H (9-20) mg/dL Creatinine 3.94 H (0.66-1.25) mg/dL Glucose 109 H (74-99) mg/dL HDL Cholesterol (40.00-60.00) mg/dL Hep Bs Antibody (Nonreactive)
[2022-08-30] MEDS: WARFARIN 5 MG TAB PO SCH (20:00)
[2022-08-30] MEDS: MIRTAZAPINE 15 MG TAB PO SCH (20:00)
[2022-08-31] MEDS: carvediloL 3.125 MG TAB PO SCH ×2 (06:36→17:02)
[2022-08-31] MEDS: SEVELAMER 800 MG TAB PO SCH ×3 (06:36→17:02)
[2022-08-31] MEDS: CALCIUM ACETATE 667 MG TAB PO SCH ×3 (06:36→17:02)
[2022-08-31] MEDS: PANTOPRAZOLE 40 MG/10 ML VIAL IVP SCH (07:59)
[2022-08-31] MEDS: ISOSORBIDE MONONITRATE ER 30 MG TAB.ER.24H PO SCH (07:59)
[2022-08-31] MEDS: FUROSEMIDE 80 MG TAB PO SCH ×2 (07:59→17:02)
[2022-08-31] MEDS: ASPIRIN 81 MG PO SCH (07:59)
[2022-08-31 08:05] VITALS: RESP 18
[2022-08-31 08:57] LABS: Basophils % (A) 1 %; Eosinophils # (A) 0.5 k/uL (0-0.7); Eosinophils % (A) 7 %; HGB 10.6 gm/dL (13.0-17.5); Hypochromasia Marked; Lymphocytes # (A) 0.8 k/uL (1.0-4.8); Lymphocytes % (A) 11 %; MCH 30.8 pg (25.0-35.0); MCHC 31.1 g/dL (31.0-37.0); MCV 98.9 fL (80.0-100.0); Macrocytosis Slight; Mean Platelet Volume 7.6; Monocytes # (A) 0.6 k/uL (0-1.0); Monocytes % (A) 8 %; Neutrophils # (A) 4.9 k/uL (1.3-7.7); Neutrophils % (A) 71 %; Platelet Count 249 k/uL (150-450); RBC 3.44 m/uL (4.30-5.90); WBC 6.9 k/uL (3.8-10.6)
[2022-08-31 09:09] LABS: INR 1.7 (<1.2); Prothrombin Time 17.4 sec (9.0-12.0)
--- NOTE | 2022-08-31 10:46 | P.PN ---
Subjective From records Lionel Fair is a 77-year-old male with PMH ofend-stage renal disease on hemodialysis, coronary artery disease s/p stenting, Atrial fibrillation on Coumadin, s/p pacemaker implantation, hypertension, who presented to the ED with worsening shortness of breath. He feels that ever since he had Covid approximately 6 months ago he has been overall more weak and winded. He complains that with any normal daily activity he has to stop and rest, even with walking short distanced around his house he feels short of breath. He denies any chest pain, palpitations, lightheadedness, dizziness, syncope or near syncope. He denies orthopnea or PND. He denies any tobacco use. On presentation vitals stable, EKG with paced rhythm, CXR with small pleural effusions. WBC 6k, Hgb 10, Cr 2.9, at baseline BNP 23k. Subjective: 08/30/2022 Pleasant end-stage renal disease on hemodialysis presents with worsening dyspnea over 6 months on and off as he is telling me this morning, however this dyspnea affected his function as he states, he is associated with cough and clear phlegm over the last 3 months and on admission also he had some chest heaviness and burning sensation about 6/10 currently resolved 0/10.He says there is no relation office chest pain to food He is on Coumadin and check his INR level with his PCP Dr. Foster. Labs from today are still pending Patient denies diarrhea, his stool brown black or nonbloody. No abdominal pain. No vomiting. No urinary complaints. He says that he has history of lung disease and he used to see Dr. Waldron but workup was unremarkable. Chest x-ray mild CHF 08/31/2022 Patient breathing is better, patient presents dose is increased to 80 g twice daily. INR 1.7 for his chronic atrial fibrillation, he is receiving Coumadin 5 mg daily which is doubled his home dose. Hemoglobin is around 10. Anemia workup still pending Continue with hemodialysis FOBT is negative Objective - Vital Signs Vital signs: Vital Signs Temp 97.7 F 08/31/22 07:56 Pulse 63 08/31/22 07:56 Resp 18 08/31/22 07:56 BP 125/54 08/31/22 07:56 Pulse Ox 92 L 08/31/22 07:56 FiO2 Intake & Output 08/30/22 08/31/22 08/31/22 18:59 06:59 18:59 Intake Total 236 150 Output Total 200 Balance 236 -50 Weight 76.5 kg Intake: Oral 236 150 Output: Urine 200 Other: Voiding Method Urinal Urinal Urinal # Bowel Movements 1 - Exam -GENERAL: The patient is alert and oriented x3, not in any acute distress. Well developed, well nourished. Generally weak HEENT: Pupils are round and equally reacting to light. EOMI. No scleral icterus. No conjunctival pallor. Normocephalic, atraumatic. No pharyngeal erythema. No thyromegaly. CARDIOVASCULAR: S1 and S2 present. No murmurs, rubs, or gallops. PULMONARY: Chest is clear to auscultation, no wheezing or crackles. ABDOMEN: Soft, nontender, nondistended, normoactive bowel sounds. No palpable organomegaly. MUSCULOSKELETAL: No joint swelling or deformity. EXTREMITIES: No cyanosis, clubbing, or pedal edema. NEUROLOGICAL: Gross neurological examination did not reveal any focal deficits. SKIN: No rashes. no petechiae. - Labs CBC & Chem 7: 08/31/22 08:08 08/30/22 10:57 Labs: Abnormal Lab Results - Last 24 Hours (Table) 08/30/22 08/30/22 08/31/22 Range/Units 10:57 10:57 08:08 RBC 3.44 L (4.30-5.90) m/uL Hgb 10.6 L (13.0-17.5) gm/dL Hct 34.0 L (39.0-53.0) % RDW 16.0 H (11.5-15.5) % Lymphocytes # 0.8 L (1.0-4.8) k/uL PT 16.1 H (9.0-12.0) sec INR 1.6 H (<1.2) Carbon Dioxide 31 H (22-30) mmol/L BUN 28 H (9-20) mg/dL Creatinine 3.94 H (0.66-1.25) mg/dL Glucose 109 H (74-99) mg/dL 08/31/22 Range/Units 08:08 RBC (4.30-5.90) m/uL Hgb (13.0-17.5) gm/dL Hct (39.0-53.0) % RDW (11.5-15.5) % Lymphocytes # (1.0-4.8) k/uL PT 17.4 H (9.0-12.0) sec INR 1.7 H (<1.2) Carbon Dioxide (22-30) mmol/L BUN (9-20) mg/dL Creatinine (0.66-1.25) mg/dL Glucose (74-99) mg/dL Assessment and Plan Assessment: Chest pressure/burning, improved Anemia Gradually and mildly worsening chronic diastolic CHF, with a fluid overload (acute on chronic). Ejection fraction 50% End-stage renal disease on hemodialysis Moderate to severe TR and MR Chronic atrial fibrillation on Coumadin at home History of coronary artery disease status post PCI Subtherapeutic INR Plan: Until the patient's with his chest burning and anemia while being on aspirin and Coumadin requirement her dose we need to check for any signs of bleeding, anemia workup requested, patient says he did not have colonoscopy/EGD before. 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 Continue same treatment. Continue with symptomatic treatment. Resume home medication. Monitor labs and vitals. DVT and GI prophylaxis. Further recommendations as per clinical course of the patient DVT prophylaxis On Coumadin GI Prophylaxis: Ppi PT/OT: Pending Prognosis is guarded
--- NOTE | 2022-08-31 11:26 | P.PN ---
Subjective Patient is seen in follow-up for end-stage renal disease. He is maintained on hemodialysis on Saturday schedule. Tolerating dialysis well. Currently on 3 L nasal cannula. Blood pressure stable. Denies chest pain or shortness of breath. No active complaints. Vital signs are stable. General: Awake. No acute distress. HEENT: Head exam is unremarkable. On nasal cannula. LUNGS: Breath sounds decreased. HEART: Rate and Rhythm are regular. ABDOMEN: Soft, no distention. EXTREMITITES: No edema. Objective - Vital Signs Vital signs: Vital Signs Temp 97.7 F 08/31/22 07:56 Pulse 63 08/31/22 07:56 Resp 18 08/31/22 07:56 BP 125/54 08/31/22 07:56 Pulse Ox 92 L 08/31/22 07:56 FiO2 Intake & Output 08/30/22 08/31/22 08/31/22 18:59 06:59 18:59 Intake Total 236 150 Output Total 200 Balance 236 -50 Weight 76.5 kg Intake: Oral 236 150 Output: Urine 200 Other: Voiding Method Urinal Urinal Urinal # Bowel Movements 1 - Labs CBC & Chem 7: 08/31/22 08:08 08/30/22 10:57 Labs: Abnormal Lab Results - Last 24 Hours (Table) 08/30/22 08/30/22 08/31/22 Range/Units 10:57 10:57 08:08 RBC 3.44 L (4.30-5.90) m/uL Hgb 10.6 L (13.0-17.5) gm/dL Hct 34.0 L (39.0-53.0) % RDW 16.0 H (11.5-15.5) % Lymphocytes # 0.8 L (1.0-4.8) k/uL PT 16.1 H (9.0-12.0) sec INR 1.6 H (<1.2) Carbon Dioxide 31 H (22-30) mmol/L BUN 28 H (9-20) mg/dL Creatinine 3.94 H (0.66-1.25) mg/dL Glucose 109 H (74-99) mg/dL 08/31/22 Range/Units 08:08 RBC (4.30-5.90) m/uL Hgb (13.0-17.5) gm/dL Hct (39.0-53.0) % RDW (11.5-15.5) % Lymphocytes # (1.0-4.8) k/uL PT 17.4 H (9.0-12.0) sec INR 1.7 H (<1.2) Carbon Dioxide (22-30) mmol/L BUN (9-20) mg/dL Creatinine (0.66-1.25) mg/dL Glucose (74-99) mg/dL Assessment and Plan Plan: Assessment: 1. End-stage renal disease maintained on hemodialysis on Saturday schedule. 2. Acute hypoxic respiratory failure secondary to volume overload. 3. Hypertension with chronic kidney disease. Stable. 4. Chronic kidney disease mineral bone disease. Phosphorus 4.4 dated 08/29/2022. On Renvela. 5. Acute on chronic diastolic CHF with severe pulmonary hypertension and moderate to severe mitral and tricuspid regurgitation. 6. Anemia of chronic kidney disease. Hemoglobin 10.6 today. Plan: Currently seen while undergoing hemodialysis. Maintain Lasix 80 mg twice daily. Continue to challenge UF. Dry weight will be lowered outpatient.
--- NOTE | 2022-08-31 15:02 | P.PN ---
Subjective HISTORY OF PRESENTING ILLNESS This is a pleasant 77-year-old male past medical history significant for end- stage renal disease on hemodialysis, coronary artery disease status post prior PCI, moderate mitral regurgitation, permanent atrial fibrillation on Coumadin, s/p pacemaker implantation in [facility] many years back per patient, hypertension, dyslipidemia. He follows in the office with Dr. Arredondo. We have been asked to see in consultation for congestive heart failure. Patient presents emergency department with worsening shortness of breath. He states that he's been having these symptoms of shortness of breath for the past 6 months. Since he had Covid- 19 in the past. It is aggravated by activity. He states lately, even walking to the bathroom or 10 steps he feels short of breath. He denies any chest pain, palpitations, lightheadedness, dizziness, syncope or near syncope. He denies any symptoms of orthopnea or PND. He denies any tobacco use. No history of Stroke, diabetes or seizure. DIAGNOSTICS * EKG reveals BI ventricular paced rhythm * Most recent echocardiogram in the office 06/2021 revealed EF 55%, moderate LVH, moderate mitral regurgitation, moderate tricuspid regurgitation, pulmonary artery systolic pressure 51 mmHg * Lexiscan stress test in the office to 06/2021 revealed no evidence of reversible ischemia * Chest xray mild pulmonary vascular congestion * Laboratory reviewed, WBC 6.1, hemoglobin 10.6, platelets 250, sodium 139, potassium 2.9, BUN 23, serum current 2.9, troponin negative 3, proBNP 23,300 * Current home cardiac medications include Imdur 30 mg daily, warfarin 2.5 mg nightly, carvedilol 3.125 mg twice a day, Lasix 40 mg twice a day, aspirin 81 mg daily 08/30 Patient seen and examined. Patient underwent dialysis yesterday and feels much better. Denies any chest pain or pressure. Still having significant dyspnea. No cough. No fevers or chills. 08/31 Patient seen and examined. Patient underwent IMO dialysis today and still feeling much better. Denies any chest pain or pressure. Denies any lightheadedness. Still has chronic dyspnea however appears nearing his baseline. PHYSICAL EXAMINATION Vitals reviewed CONSTITUTIONAL: No apparent distress. HEENT: Head is normocephalic. Pupils are equal, round. Sclerae anicteric. Mucous membranes of the mouth are moist. No JVD. No carotid bruit. CHEST EXAMINATION: Lungs are diminished in the bases to auscultation. No chest wall tenderness is noted on palpation or with deep breathing. HEART EXAMINATION: Regular rate and rhythm. S1, S2 heard. Systolic murmur at apex, No gallops or rub. ABDOMEN: Soft, nontender. Positive bowel sounds. EXTREMITIES: 2+ peripheral pulses, no lower extremity edema and no calf tenderness. Left upper extremity AV fistula NEUROLOGIC EXAMINATION: Patient is awake, alert and oriented x3. ASSESSMENT Acute on chronic heart failure with preserved ejection fraction Moderate to severe mitral regurgitation End stage renal disease on hemodialysis Coronary artery disease status post prior PCI Permanent atrial fibrillation on Coumadin Subtherapeutic INR History of pacemaker implantation Hypertension Dyslipidemia Pulmonary hypertension likely related to heart failure PLAN Continue with routine dialysis Continue coumadin, monitor INR Patient does have moderate to severe mitral regurgitation and may consider HARISH as an outpatient Likely DC tomorrow Objective - Vital Signs Vital signs: Vital Signs Temp 97.7 F 08/31/22 07:56 Pulse 95 08/31/22 13:08 Resp 18 08/31/22 11:25 BP 110/55 08/31/22 11:25 Pulse Ox 99 08/31/22 11:25 FiO2 Intake & Output 08/30/22 08/31/22 08/31/22 18:59 06:59 18:59 Intake Total 236 150 120 Output Total 200 3000 Balance 236 50 -2880 Weight 76.5 kg Intake: Oral 236 150 120 Output: Urine 200 Hemodialysis 3000 Other: Voiding Method Urinal Urinal Urinal # Bowel Movements 1 - Labs CBC & Chem 7: 08/31/22 08:08 08/30/22 10:57 Labs: Abnormal Lab Results - Last 24 Hours (Table) 08/31/22 08/31/22 Range/Units 08:08 08:08 RBC 3.44 L (4.30-5.90) m/uL Hgb 10.6 L (13.0-17.5) gm/dL Hct 34.0 L (39.0-53.0) % RDW 16.0 H (11.5-15.5) % Lymphocytes # 0.8 L (1.0-4.8) k/uL PT 17.4 H (9.0-12.0) sec INR 1.7 H (<1.2)
[2022-08-31 15:24] LABS: % Iron Saturation 15.5 (15.00-50.00)
[2022-08-31] MEDS: MIRTAZAPINE 15 MG TAB PO SCH (20:02)
[2022-08-31] MEDS: WARFARIN 5 MG TAB PO SCH (20:02)
[2022-09-01] MEDS: CALCIUM ACETATE 667 MG TAB PO SCH ×2 (06:12→13:54)
[2022-09-01] MEDS: carvediloL 3.125 MG TAB PO SCH (06:12)
[2022-09-01] MEDS: SEVELAMER 800 MG TAB PO SCH ×2 (06:12→13:54)
[2022-09-01] MEDS ORDERED: PANTOPRAZOLE 40 MG TABLET PO SCH (07:30)
[2022-09-01] MEDS: ASPIRIN 81 MG PO SCH (08:25)
[2022-09-01] MEDS: ISOSORBIDE MONONITRATE ER 30 MG TAB.ER.24H PO SCH (08:25)
[2022-09-01] MEDS: FUROSEMIDE 80 MG TAB PO SCH (08:25)
[2022-09-01 08:28] VITALS: TEMP 97.9
[2022-09-01 08:43] LABS: INR 1.8 (<1.2); Prothrombin Time 18.7 sec (9.0-12.0)
--- NOTE | 2022-09-01 09:25 | P.PN ---
Subjective Progress Note Date: 09/01/22 Principal diagnosis: This is a 77-year-old male seen in consultation because of ESRD on dialysis Saturday and Saturday came in with shortness of breath and volume overload. Vital signs are stable, yesterday had 3 L ultrafiltrate on dialysis Labs are stable hemoglobin is 10.6 as of yesterday He is on nasal cannula oxygen at home and remains on oxygen here and he feels he is at baseline as far as his breathing is concerned. No other complaints no chest pain dizziness nausea vomiting diarrhea Objective - Vital Signs Vital signs: Vital Signs Temp 97.9 F 09/01/22 08:27 Pulse 64 09/01/22 08:27 Resp 18 09/01/22 08:27 BP 127/60 09/01/22 08:27 Pulse Ox 96 09/01/22 08:27 FiO2 Intake & Output 08/31/22 09/01/22 09/01/22 18:59 06:59 18:59 Intake Total 620 Output Total 3000 Balance -2380 Weight 75.5 kg Intake: Oral 620 Output: Hemodialysis 3000 Other: Voiding Method Urinal Urinal Exam general he is on nasal cannula oxygen comfortable HEENT exam no JVP neck is supple no facial asymmetry Lungs are clear to auscultation good air entry bilaterally Heart sounds unremarkable. On the monitor he is paced rhythm Abdomen soft nontender Extremity exam was no edema Neurologically awake alert oriented - Labs CBC & Chem 7: 08/31/22 08:08 08/30/22 10:57 Labs: Abnormal Lab Results - Last 24 Hours (Table) 08/31/22 09/01/22 Range/Units 08:08 08:17 PT 18.7 H (9.0-12.0) sec INR 1.8 H (<1.2) Iron 48 L (65-175) ug/dL Ferritin 1252.0 H (22.0-322.0) ng/mL Vitamin B12 1040.0 H (200.0-944.0) pg/mL Assessment and Plan Assessment: Assessment: 1. End-stage renal disease maintained on hemodialysis on Saturday schedule. 2. Acute hypoxic respiratory failure secondary to volume overload. Back to baseline 3. Hypertension with chronic kidney disease. Stable. 4. Chronic kidney disease mineral bone disease. Phosphorus 4.4 dated 08/29/2022. On Renvela. 5. Acute on chronic diastolic CHF with severe pulmonary hypertension and moderate to severe mitral and tricuspid regurgitation. 6. Anemia of chronic kidney disease. Hemoglobin 10.6 yesterday 07-31-22 Plan: Patient is stable enough from a nephrological perspective to be discharged Plan: Assessment: 1. End-stage renal disease maintained on hemodialysis on Saturday schedule. 2. Acute hypoxic respiratory failure secondary to volume overload. 3. Hypertension with chronic kidney disease. Stable. 4. Chronic kidney disease mineral bone disease. Phosphorus 4.4 dated 08/29/2022. On Renvela. 5. Acute on chronic diastolic CHF with severe pulmonary hypertension and moderate to severe mitral and tricuspid regurgitation. 6. Anemia of chronic kidney disease. Hemoglobin 10.6 today. Plan: Currently seen while undergoing hemodialysis. Maintain Lasix 80 mg twice daily. Continue to challenge UF. Dry weight will be lowered outpatient.
--- NOTE | 2022-09-01 10:48 | P.PN ---
Subjective From records Lionel Fair is a 77-year-old male with PMH ofend-stage renal disease on hemodialysis, coronary artery disease s/p stenting, Atrial fibrillation on Coumadin, s/p pacemaker implantation, hypertension, who presented to the ED with worsening shortness of breath. He feels that ever since he had Covid approximately 6 months ago he has been overall more weak and winded. He complains that with any normal daily activity he has to stop and rest, even with walking short distanced around his house he feels short of breath. He denies any chest pain, palpitations, lightheadedness, dizziness, syncope or near syncope. He denies orthopnea or PND. He denies any tobacco use. On presentation vitals stable, EKG with paced rhythm, CXR with small pleural effusions. WBC 6k, Hgb 10, Cr 2.9, at baseline BNP 23k. Subjective: 08/30/2022 Pleasant end-stage renal disease on hemodialysis presents with worsening dyspnea over 6 months on and off as he is telling me this morning, however this dyspnea affected his function as he states, he is associated with cough and clear phlegm over the last 3 months and on admission also he had some chest heaviness and burning sensation about 6/10 currently resolved 0/10.He says there is no relation office chest pain to food He is on Coumadin and check his INR level with his PCP Dr. Foster. Labs from today are still pending Patient denies diarrhea, his stool brown black or nonbloody. No abdominal pain. No vomiting. No urinary complaints. He says that he has history of lung disease and he used to see Dr. Waldron but workup was unremarkable. Chest x-ray mild CHF 08/31/2022 Patient breathing is better, patient presents dose is increased to 80 g twice daily. INR 1.7 for his chronic atrial fibrillation, he is receiving Coumadin 5 mg daily which is doubled his home dose. Hemoglobin is around 10. Anemia workup still pending Continue with hemodialysis FOBT is negative 09/01/2022 patient denies chest pain or dyspnea while he walks,He feels better. He has dry cough. He still have some mild exertional dyspnea. But no abdominal pain, no chest pain. vitals are stable, INR is 1.8 after safe 6 mg of Coumadin last night Patient informedabout his diagnosis of mild iron deficiency anemia, most likely his anemia is of chronic disease, however patient did not had colonoscopy recently , patient might benefit from 1 but this is not an emergent and can be done as an outpatient patient informed he needs to do screening colonoscopy and risks including but not limited to cancer are explained for him and he verbalized understanding and acceptance his INR 1Patient also informed about the goal INR is 2-3 and the need to check his INR in 2-3 days post discharge and he agrees as well. Usually he follows up with Dr. 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 Risks and benefits are explained Objective - Vital Signs Vital signs: Vital Signs Temp 97.9 F 09/01/22 08:27 Pulse 64 09/01/22 08:27 Resp 18 09/01/22 08:27 BP 127/60 09/01/22 08:27 Pulse Ox 96 09/01/22 08:27 FiO2 Intake & Output 08/31/22 09/01/22 09/01/22 18:59 06:59 18:59 Intake Total 620 Output Total 3000 Balance -2380 Weight 75.5 kg Intake: Oral 620 Output: Hemodialysis 3000 Other: Voiding Method Urinal Urinal Urinal - Exam -GENERAL: The patient is alert and oriented x3, not in any acute distress. Well developed, well nourished. Generally weak HEENT: Pupils are round and equally reacting to light. EOMI. No scleral icterus. No conjunctival pallor. Normocephalic, atraumatic. No pharyngeal erythema. No thyromegaly. CARDIOVASCULAR: S1 and S2 present. No murmurs, rubs, or gallops. PULMONARY: Chest is clear to auscultation, no wheezing or crackles. ABDOMEN: Soft, nontender, nondistended, normoactive bowel sounds. No palpable organomegaly. MUSCULOSKELETAL: No joint swelling or deformity. EXTREMITIES: No cyanosis, clubbing, or pedal edema. NEUROLOGICAL: Gross neurological examination did not reveal any focal deficits. SKIN: No rashes. no petechiae. - Labs CBC & Chem 7: 08/31/22 08:08 08/30/22 10:57 Labs: Abnormal Lab Results - Last 24 Hours (Table) 08/31/22 09/01/22 Range/Units 08:08 08:17 PT 18.7 H (9.0-12.0) sec INR 1.8 H (<1.2) Iron 48 L (65-175) ug/dL Ferritin 1252.0 H (22.0-322.0) ng/mL Vitamin B12 1040.0 H (200.0-944.0) pg/mL Assessment and Plan Assessment: Chest pressure/burning, improved Anemia Gradually and mildly worsening chronic diastolic CHF, with a fluid overload (acute on chronic). Ejection fraction 50% End-stage renal disease on hemodialysis Moderate to severe TR and MR Chronic atrial fibrillation on Coumadin at home History of coronary artery disease status post PCI Subtherapeutic INR Plan: Until the patient's with his chest burning and anemia while being on aspirin and Coumadin requirement her dose we need to check for any signs of bleeding, anemia workup requested, patient says he did not have colonoscopy/EGD before. 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 Continue same treatment. Continue with symptomatic treatment. Resume home medication. Monitor labs and vitals. DVT and GI prophylaxis. Further recommendations as per clinical course of the patient DVT prophylaxis On Coumadin GI Prophylaxis: Ppi PT/OT: Pending Prognosis is guarded
[2022-09-01 12:24] VITALS: BP 139/83; PULSE 59
--- NOTE | 2022-09-01 15:19 | P.PN ---
Subjective HISTORY OF PRESENTING ILLNESS This is a pleasant 77-year-old male past medical history significant for end- stage renal disease on hemodialysis, coronary artery disease status post prior PCI, moderate mitral regurgitation, permanent atrial fibrillation on Coumadin, s/p pacemaker implantation in [facility] many years back per patient, hypertension, dyslipidemia. He follows in the office with Dr. Arredondo. We have been asked to see in consultation for congestive heart failure. Patient presents emergency department with worsening shortness of breath. He states that he's been having these symptoms of shortness of breath for the past 6 months. Since he had Covid- 19 in the past. It is aggravated by activity. He states lately, even walking to the bathroom or 10 steps he feels short of breath. He denies any chest pain, palpitations, lightheadedness, dizziness, syncope or near syncope. He denies any symptoms of orthopnea or PND. He denies any tobacco use. No history of Stroke, diabetes or seizure. DIAGNOSTICS * EKG reveals BI ventricular paced rhythm * Most recent echocardiogram in the office 06/2021 revealed EF 55%, moderate LVH, moderate mitral regurgitation, moderate tricuspid regurgitation, pulmonary artery systolic pressure 51 mmHg * Lexiscan stress test in the office to 06/2021 revealed no evidence of reversible ischemia * Chest xray mild pulmonary vascular congestion * Laboratory reviewed, WBC 6.1, hemoglobin 10.6, platelets 250, sodium 139, potassium 2.9, BUN 23, serum current 2.9, troponin negative 3, proBNP 23,300 * Current home cardiac medications include Imdur 30 mg daily, warfarin 2.5 mg nightly, carvedilol 3.125 mg twice a day, Lasix 40 mg twice a day, aspirin 81 mg daily 08/30 Patient seen and examined. Patient underwent dialysis yesterday and feels much better. Denies any chest pain or pressure. Still having significant dyspnea. No cough. No fevers or chills. 08/31 Patient seen and examined. Patient underwent IMO dialysis today and still feeling much better. Denies any chest pain or pressure. Denies any lightheadedness. Still has chronic dyspnea however appears nearing his baseline. 09/01 Patient seen and examined. Patient states he is feeling well. He has dialysis scheduled for Saturday. No chest pain or pressure. Dyspnea is back to his baseline. Anxious to go home. PHYSICAL EXAMINATION Vitals reviewed CONSTITUTIONAL: No apparent distress. HEENT: Head is normocephalic. Pupils are equal, round. Sclerae anicteric. Mucous membranes of the mouth are moist. No JVD. No carotid bruit. CHEST EXAMINATION: Lungs are diminished in the bases to auscultation. No chest wall tenderness is noted on palpation or with deep breathing. HEART EXAMINATION: Regular rate and rhythm. S1, S2 heard. Systolic murmur at apex, No gallops or rub. ABDOMEN: Soft, nontender. Positive bowel sounds. EXTREMITIES: 2+ peripheral pulses, no lower extremity edema and no calf tenderness. Left upper extremity AV fistula NEUROLOGIC EXAMINATION: Patient is awake, alert and oriented x3. ASSESSMENT Acute on chronic heart failure with preserved ejection fraction Moderate to severe mitral regurgitation End stage renal disease on hemodialysis Coronary artery disease status post prior PCI Permanent atrial fibrillation on Coumadin Subtherapeutic INR History of pacemaker implantation Hypertension Dyslipidemia Pulmonary hypertension likely related to heart failure PLAN Continue coumadin, monitor INR, may be adjusted outpt Patient does have moderate to severe mitral regurgitation and may consider HARISH as an outpatient Appears stable for DC home today Objective - Vital Signs Vital signs: Vital Signs Temp 97.9 F 09/01/22 08:27 Pulse 59 L 09/01/22 12:23 Resp 18 09/01/22 12:23 BP 139/83 09/01/22 12:23 Pulse Ox 94 L 09/01/22 12:23 FiO2 Intake & Output 08/31/22 09/01/22 09/01/22 18:59 06:59 18:59 Intake Total 620 118 Output Total 3000 Balance -8060 118 Weight 75.5 kg Intake: Oral 620 118 Output: Hemodialysis 3000 Other: Voiding Method Urinal Urinal Urinal # Voids 2 - Labs CBC & Chem 7: 08/31/22 08:08 08/30/22 10:57 Labs: Abnormal Lab Results - Last 24 Hours (Table) 08/31/22 09/01/22 Range/Units 08:08 08:17 PT 18.7 H (9.0-12.0) sec INR 1.8 H (<1.2) Iron 48 L (65-175) ug/dL Ferritin 1252.0 H (22.0-322.0) ng/mL Vitamin B12 1040.0 H (200.0-944.0) pg/mL
[2022-09-01] MEDS ORDERED: WARFARIN 3 MG TAB PO ONE (18:00)
== END 2022-09-01 16:45 | disposition home or self-care (01) | DRG 291 ==
LOC: EC 17:34 → 3SCARD 19:22
PROVIDERS: ADMIT Family Medicine; ATTEND Family Medicine
PROC: 5A1D70Z Performance of Urinary Filtration, Intermittent, Less than 6 Hours Per Day (ICD-10-PCS; principal; 2022-08-29)
DX: I13.2 Hypertensive heart and chronic kidney disease with heart failure and with stage 5 chronic kidney disease, or end stage renal disease (principal); I50.33 Acute on chronic diastolic (congestive) heart failure; N18.6 End stage renal disease; J96.01 Acute respiratory failure with hypoxia; I48.21 Permanent atrial fibrillation; I08.1 Rheumatic disorders of both mitral and tricuspid valves; I27.20 Pulmonary hypertension, unspecified; R79.1 Abnormal coagulation profile; M89.8X9 Other specified disorders of bone, unspecified site; R53.81 Other malaise; D63.1 Anemia in chronic kidney disease; E78.5 Hyperlipidemia, unspecified; I25.10 Atherosclerotic heart disease of native coronary artery without angina pectoris; U09.9 Post COVID-19 condition, unspecified; R01.1 Cardiac murmur, unspecified; Z96.641 Presence of right artificial hip joint; Z99.2 Dependence on renal dialysis; Z95.5 Presence of coronary angioplasty implant and graft; Z95.0 Presence of cardiac pacemaker; Z79.899 Other long term (current) drug therapy; Z79.82 Long term (current) use of aspirin; Z79.01 Long term (current) use of anticoagulants; Z79.51 Long term (current) use of inhaled steroids
CPT/HCPCS: 36415; 71046; 80048; 80053; 80061; 82272; 82607; 82728; 82746; 83540; 83550; 83880; 84100; 84484; 85025; 85610; 85730; 86706; 87340; 90935; 93005; 93306; 94760; 96374; 99285

== ENCOUNTER → 2023-01-17 | Day surgery (SDC) | payer MEDICARE ==
[2023-01-15 13:47] VITALS: BMI 25.1
[~2023-01-17] MED LIST: ADENOSINE 90 MG in SODIUM CHLORIDE 0.9% 60 ML IVP ONE; ALPRAZolam 0.25 MG TAB PO PRN; ALPRAZolam 0.5 MG TAB PO PRN; ASPIRIN 325 MG TAB PO ONE; ASPIRIN 81 MG PO SCH; ATORVASTATIN 80 MG TAB PO ONE; BENZOCAINE SPRAY 1 CAN TOPICAL ONE; BENZONATATE 100 MG CAP PO PRN; ESCITALOPRAM 20 MG TAB PO SCH; FOLIC ACID-VIT B COMPLEX-VIT C 1 CAP PO SCH; FUROSEMIDE 80 MG TAB PO SCH; HEPARIN SODIUM,PORCINE 10,000 UNIT in SODIUM CHLORIDE 0.9% 1,000 ML IRRIGATION PRN; HEPARIN SODIUM,PORCINE 2,500 UNIT in SODIUM CHLORIDE 0.9% 250 ML IRRIGATION PRN; IOPAMIDOL-370 100ML BTL INJ ONE; IOPAMIDOL-370 125ML BTL INJ ONE; LIDOCAINE 1% INJ 10MG/ML (20 ML MDV) SQ ONE; NITROGLYCERIN SL TABS 0.4 MG TAB SUBLINGUAL PRN; NON FORMULARY DRUG (Levocarnitine [Levocarnitine] 330 MG Tablet) PO SCH; RX INFO: IV CONTRAST WAS GIVEN 1 EACH MISC MISCELLANE PRN; SEVELAMER 800 MG TAB PO SCH; SODIUM CHLORIDE 0.9% 1,000 ML IV ONE; SODIUM CHLORIDE 0.9% 1,000 ML IV SCH; SODIUM CHLORIDE 0.9% 900 ML IV ONE; VERAPAMIL SYRINGE (5 MG/10 ML) IV ONE; carvediloL 3.125 MG TAB PO SCH
[2023-01-17 06:33] LABS: Basophils % (A) 0 %; Eosinophils # (A) 0.2 k/uL (0-0.7); Eosinophils % (A) 4 %; HCT 35.8 % (39.0-53.0); Lymphocytes % (A) 17 %; MCH 32.4 pg (25.0-35.0); MCHC 33.6 g/dL (31.0-37.0); MCV 96.5 fL (80.0-100.0); Mean Platelet Volume 7.6; Monocytes # (A) 0.4 k/uL (0-1.0); Monocytes % (A) 8 %; Neutrophils # (A) 3.7 k/uL (1.3-7.7); Neutrophils % (A) 67 %; Platelet Count 224 k/uL (150-450); RBC 3.71 m/uL (4.30-5.90); RDW 14.9 % (11.5-15.5); WBC 5.6 k/uL (3.8-10.6)
[2023-01-17 06:38] VITALS: TEMP 97.7
[2023-01-17 06:38] LABS: INR 1.2 (<1.2); Prothrombin Time 12.3 sec (9.0-12.0)
[2023-01-17 07:02] LABS: Calcium 10.1 mg/dL (8.4-10.2); Potassium 3.6 mmol/L (3.5-5.1)
[2023-01-17] MEDS: MIDAZOLAM 2 MG/2 ML VIAL IV ONE ×2 (07:45→07:50)
[2023-01-17] MEDS: fentaNYL (PF) 50 MCG/ML 2 ML AMP IV ONE ×2 (07:47→07:52)
[2023-01-17 09:11] LABS: O2 Sat Blood Gas 67.9 %
[2023-01-17 09:14] LABS: O2 Sat Blood Gas 67.6 %
[2023-01-17 09:16] LABS: O2 Sat Blood Gas 95.8 %
[2023-01-17 12:44] VITALS: RESP 16
[2023-01-17 12:46] VITALS: PULSE 60
[2023-01-17 12:48] VITALS: BP 145/65
--- NOTE | 2023-01-17 20:56 | P.TEE ---
Description of Procedure(s): Procedure performed: Transesophageal Echocardiogram with color flow doppler, pulsed wave doppler and continuous wave doppler, moderate conscious sedation Moderate conscious sedation: Moderate conscious sedation was supplied with direct supervision of myself using Versed and Fentanyl. Complications: none Indications: Mitral regurgitation PROCEDURE: After the risks, benefits and alternatives of the above mentioned procedure was explained in detail with the patient, informed consent was obtained. Patient was brought to the lab in a fasting state. Patient was given IV Versed and Fentanyl for sedation. The throat was sprayed with Hurricane to anesthetize the throat. A lubricated Omni probe was then introduced into the esophagus and stomach and multiple views were obtained. 2D echo with color flow doppler, pulsed wave doppler and continuous wave doppler was utilized. Agitated saline bubbles were injected to assess for any intra-atrial shunt. The probe was then removed. Patient tolerated the procedure well. Patient was transferred to the post procedure area in stable and satisfactory condition. FINDINGS: 1. The aortic valve is tricuspid with moderate aortic sclerosis and mild aortic stenosis. 2. The mitral valve appears be normal with moderate to severe mitral regurgitation and severe mitral annular calcification. Vena contracta measuring 0.6-0.7 cm, PISA radius 0.6-0.7cm with Nyquist 44. 3. Tricuspid valve has severe Tricuspid regurgitation. 4. The interatrial septum is intact. No evidence of PFO. 5. Left atrial appendage is free of clot. 6. Left ventricular size and function are normal with left ventricular ejection fraction 50-55%. 7. Severely dilated left atrium
--- NOTE | 2023-01-17 21:14 | P.CARDCATH ---
Description of Procedure: PROCEDURES PERFORMED: Left and right heart catheterization, bilateral coronary angiography, left ventriculogram, iFR left main INDICATION: Mitral regurgitation, dyspnea on exertion CONSENT:I have discussed the risks, benefits and alternative therapies for the above-mentioned procedure and for both sedation/analgesia as well as necessary blood product administration, if indicated, as they pertain to this patient. The patient has indicated understanding and acceptance of the risks and procedures discussed. PROCEDURE: After the risks, benefits and alternatives of the above mentioned procedure explained in detail with the patient, informed consent was obtained. Patient was taken to the catheterization lab and prepped and draped in usual fashion. 1% lidocaine was used to anesthetize the right radial artery. A 6- Bermudian sheath was placed in the right radial artery using modified Seldinger technique. Given possible need for brachial access with his dialysis, venous femoral approach was recommended. An 8-Bermudian sheath was placed in the right common femoral vein. There was some difficulty advancing the Perry-Alba catheter into the pulmonary artery and eventually required placing a 5-Bermudian FR5 catheter into the pulmonary artery and exchanging over a 0.018 V18 wire. With this technique a 6-Bermudian Perry-Alba catheter was able to be advanced into the clinic A wedge position and pressure measurements and oxygen saturations were obtained. The Perry-Alba catheter was then removed. Left coronary angiography was performed with a 5-Bermudian JL 4.0 catheter and right coronary angiography was performed with a 5-Bermudian AR 2.0 catheter in various views. A 5-Bermudian FR5 catheter was inserted into the left ventricle and pressure measurements were obtained. A 6 Bermudian Perry-Alba catheter was advanced in the left ventricle and prior injection was performed in the BLACKMON projection. Given intermediate left main and LAD lesion, the decision was made to perform iFR/FFR of the left main which was normal for both at 0.93 and 0.89 respectively. The right radial sheath was removed and a TR band was placed with hemostasis achieved. The venous sheath was pulled and manual pressure was held. The patient tolerated the procedure well. Patient was transported back to the post catheterization holding area in stable condition. Conscious Sedation: Patient was monitored under the direct supervision of vision of myself for conscious sedation using Versed and fentanyl for a total duration of 67 minutes HEMODYNAMICS: PCWP: 19 with V wave 29mmHg PA: 65/23 (37) RV: 65/9 RA: 10 LV: 130/4, LVEDP 20 Ao: 133/56 PA oxygen saturation: 68% RA oxygen saturation: 68% Right radial oxygen saturation: 96% CO by BABAK: 6.7 L/min CI by BABAK: 3./49L/min/m2 SELECTIVE CORONARY ARTERIOGRAPHY: LEFT MAIN: The left main is a large caliber vessel which bifurcates into the LAD and circumflex. There is distal left main into LAD 40-50% stenosis. LEFT ANTERIOR DESCENDING CORONARY ARTERY: LAD is a large caliber vessel which wraps around to the apex. There is ostial LAD 60-70% stenosis and otherwise mild luminal irregularities. LEFT CIRCUMFLEX CORONARY ARTERY: Left circumflex is a moderate caliber vessel with 100% ostial circumflex stenosis with some left left collaterals. RIGHT CORONARY ARTERY: The right coronary artery is a large caliber vessel which gives off a PDA and PLV branch and is the dominant vessel. There is diffuse 10- 20% stenosis and a ostial PDA 60-70% stenosis. There are robust right to left collaterals to the circumflex. Left Ventriculogram: LV EF 50%, 3+ MR FINAL IMPRESSION: 1. CAD as described above including 40-50% left main, 60-70% ostial LAD, 100% ostial left circumflex and 60-70% PDA stenosis 2. Mildly elevated left and right sided filling pressures 3. iFR/FFR of left main into LAD lesion nomral at 0.93, 0.89 respectively 4. V waves of 29mmHg consistent with mitral regurgitation 5. 3+ MR 6. LV EF 50% PLAN: 1. Aggressive risk factor modification per most recent ACC/AHA guidelines. 2. Follow-up in the office in 1-2 weeks.
== END ==
LOC: CATHCVL 05:54
PROVIDERS: ATTEND Internal Medicine
DX: I08.1 Rheumatic disorders of both mitral and tricuspid valves (principal); I70.0 Atherosclerosis of aorta; I13.2 Hypertensive heart and chronic kidney disease with heart failure and with stage 5 chronic kidney disease, or end stage renal disease; I50.22 Chronic systolic (congestive) heart failure; I48.21 Permanent atrial fibrillation; N18.6 End stage renal disease; E11.22 Type 2 diabetes mellitus with diabetic chronic kidney disease; Z79.82 Long term (current) use of aspirin; Z79.899 Other long term (current) drug therapy
CPT/HCPCS: 93312; 93320; 93325; 93460; 93799; 80048; 85018; 82810; 85025; 85610; C1769 ×6; C1887; C1894 ×2; C1751; J2250; J2001; J3010; J0153; J1644; Q9967 ×2

== ENCOUNTER 2023-05-16 15:42 | Inpatient (IN) | payer MEDICARE ==
[2023-05-16] MEDS ORDERED: MORPHINE SULFATE 4 MG/ML SYRINGE IV STA (16:26)
[2023-05-16] MEDS ORDERED: ONDANSETRON 4 MG/2 ML VIAL IVP STA (16:26)
[2023-05-16] MEDS ORDERED: SODIUM CHLORIDE 0.9% 1,000 ML IV STA (16:26)
--- NOTE | 2023-05-16 16:41 | ED ---
Fall HPI - General Chief Complaint: Fall Stated Complaint: fall Time Seen by Provider: 05/16/23 15:57 Source: patient, family, EMS, RN notes reviewed, old records reviewed Mode of arrival: EMS - History of Present Illness Initial Comments: This is a 78-year-old male to the emergency department for evaluation. Patient presenting from status post fall. Patient has fall with left hip pain. Persistent left hip pain and inability to move left hip here in the emergency room. No other injury noted from fall. 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: yes, by family Place Fall Occurred: home Loss of Consciousness: none Prolonged Down Time?: no Symptoms Prior to Fall: none Location - Extremities: Left: Thigh Severity: moderate Severity scale (1-10): 6 Quality: sharp, stabbing Context: tripped/slipped Associated Symptoms: denies - Related Data Home Medications Medication Instructions Recorded Confirmed Aspirin EC [Ecotrin Low Dose] 81 mg PO DAILY 08/04/21 05/16/23 Dialyvite 1 tab PO DAILY 08/04/21 05/16/23 Lidocaine-Prilocaine Cream [Emla 1 applic TOPICAL DAILY PRN 12/15/21 05/16/23 Cream 2.5%/2.5%] Sevelamer Carbonate 1,600 mg PO TID-W/MEALS 08/28/22 05/16/23 levOCARNitine [Levocarnitine] 330 mg PO DAILY 01/15/23 05/16/23 Albuterol Inhaler [Ventolin Hfa 1 - 2 puff INHALATION RT-Q6H PRN 05/16/23 05/16/23 Inhaler] Atorvastatin [Lipitor] 20 mg PO HS 05/16/23 05/16/23 Diclofenac Sodium Gel [Voltaren 1 applic TOPICAL QID PRN 05/16/23 05/16/23 Gel] Furosemide [Lasix] 40 mg PO BID 05/16/23 05/16/23 Montelukast [Singulair] 10 mg PO HS 05/16/23 05/16/23 Sevelamer [Renvela] 800 mg PO DAILY PRN 05/16/23 05/16/23 Sildenafil [Revatio] 20 mg PO HS 05/16/23 05/16/23 buPROPion HCL [Wellbutrin XL] 150 mg PO DAILY 05/16/23 05/16/23 Previous Rx's Medication Instructions Recorded Sennosides-Docusate Sodium 2 tab PO DAILY #30 tablet 05/19/23 [Senokot-S] HYDROcodone/APAP 5-325MG [[facility] 5] 1 each PO Q6HR PRN #30 tab 05/20/23 Warfarin [Coumadin] 2 mg PO HS #30 tab 05/21/23 Allergies Allergy/AdvReac Type Severity Reaction Status Date / Time No Known Allergies Allergy Verified 05/16/23 16:30 Review of Systems ROS Statement: Those systems with pertinent positive or pertinent negative responses have been documented in the HPI. ROS Other: All systems not noted in ROS Statement are negative. Past Medical History Past Medical History: Atrial Fibrillation, Dialysis, Eye Disorder Additional Past Medical History / Comment(s): heart murmur, Kidney Failure- Dialysis MOWEFR-has little urine output,approx twice per day,pt thinks may be on fluid restrictions checking with dialysis on 01-16-23 to confirm how much fluids per day he can have. Cataracts. History of Any Multi-Drug Resistant Organisms: None Reported Past Surgical History: Joint Replacement, Pacemaker Additional Past Surgical History / Comment(s): Cardiac stents, right hip replacement,left upper arm av fistula Past Anesthesia/Blood Transfusion Reactions: No Reported Reaction Additional Past Anesthesia/Blood Transfusion Reaction / Comment(s): no problems with prior blood transfusion Type of Cardiac Device: Unknown Device Placement Date:: 2010 Past Psychological History: No Psychological Hx Reported Smoking Status: Never smoker Past Alcohol Use History: None Reported Past Drug Use History: None Reported - Past Family History Father Family Medical History: Hypertension Brother(s) Family Medical History: Cancer Additional Family Medical History / Comment(s): 2 brothers of cancer. General Exam Limitations: no limitations Course Vital Signs 05/16/23 05/16/23 05/16/23 15:44 17:10 18:21 Temperature 97.9 F Pulse Rate 61 60 60 Respiratory 18 12 18 Rate Blood Pressure 127/56 138/68 134/68 O2 Sat by Pulse 99 93 L 99 Oximetry 05/16/23 20:01 Temperature Pulse Rate 67 Respiratory 18 Rate Blood Pressure 173/83 O2 Sat by Pulse 100 Oximetry - Reevaluation(s) Reevaluation #1: 05/16/23 19:08 Medical records reviewed Reevaluation #2: 05/16/23 19:08 Patient's pain is improved Reevaluation #3: 05/16/23 19:08 Patient informed results questions answered Reevaluation #4: 05/16/23 19:09 Was pt. sent in by a medical professional or institution (TOM Santos, [employer] ), urgent care, hospital, or half-way...) When possible be specific @ -no Did you speak to anyone other than the patient for history (EMS, parent, family, police, friend...)? What history was obtained from this source @ -no Did you review nursing and triage notes (agree or disagree)? Why? @ -agree Are old charts reviewed (outside hosp., previous admission, EMS record, old EKG, old radiological studies, urgent care reports/EKG's, half-way records)? Report findings @ -yes Differential Diagnosis (chest pain, altered mental status, abdominal pain women, abdominal pain men, vaginal bleeding, weakness, fever, dyspnea, syncope, headache, dizziness, GI bleed, back pain, seizure, CVA, palpatations, mental health, musculoskeletal)? @ -prior EKG interpreted by me (3pts min.). @ -yes X-rays interpreted by me (1pt min.). @ -yes CT interpreted by me (1pt min.). @ -no U/S interpreted by me (1pt. min.). @ -no What testing was considered but not performed or refused? (CT, X-rays, U/S, labs)? Why? @ -none What meds were considered but not given or refused? Why? @ -none Did you discuss the management of the patient with other professionals (p rofessionals i.e. TOM Santos, [employer] ), lab, RT, psych nurse, social director, senior compliance officer, teacher, army senior officer, egg caser)? Give summary @ -no Was smoking cessation discussed for >3mins.? @ -no Was critical care preformed (if so, how long)? @ -no Were there social determinants of health that impacted care today? How? (Homelessness, low income, unemployed, alcoholism, drug addiction, transportation, low edu. Level, literacy, decrease access to med. care, senior living, rehab)? @ -none Was there de-escalation of care discussed even if they declined (Discuss DNR or withdrawal of care, Hospice)? DNR status @ -no What co-morbidities impacted this encounter? (DM, HTN, Smoking, COPD, CAD, Cancer, CVA, ARF, Chemo, Hep., AIDS, mental health diagnosis, sleep apnea, morbid obesity)? @ -none Was patient admitted / discharged? Hospital course, mention meds given and route, prescriptions, significant lab abnormalities, going to OR and other pertinent info. @ - 78 male to be admitted for fall with left IT fracture. Patient will be admitted for surgical evaluation and treatment Admitted Undiagnosed new problem with uncertain prognosis? @ -no Drug Therapy requiring intensive monitoring for toxicity (Heparin, Nitro, Insulin, Cardizem)? @ -no Were any procedures done? @ -no Diagnosis/symptom? @ -Fall, left hip fracture Acute, or Chronic, or Acute on Chronic? @ -Acute Uncomplicated (without systemic symptoms) or Complicated (systemic symptoms)? @ -Complicated Side effects of treatment? @ -no Exacerbation, Progression, or Severe Exacerbation? @ -exacerbation Poses a threat to life or bodily function? How? (Chest pain, [place], [place], pneumonia, PE, COPD, DKA, ARF, appy, cholecystitis, CVA, Diverticulitis, Homicidal, Suicidal, threat to staff... and all critical care pts) @ -yes significant fall resulting in trauma - Consultations Consultation #1: Family requests orthopedic associates and Dr. Tasng is okay with admission Medical Decision Making - Medical Decision Making 78 male to be admitted for fall with left IT fracture. Patient will be admitted for surgical evaluation and treatment - Lab Data Result diagrams: 05/21/23 04:38 05/19/23 09:33 Lab Results 05/16/23 05/16/23 05/16/23 Range/Units 16:44 16:44 16:44 WBC 7.5 (3.8-10.6) k/uL RBC 3.33 L (4.30-5.90) m/uL Hgb 11.0 L (13.0-17.5) gm/dL Hct 32.4 L (39.0-53.0) % MCV 97.4 (80.0-100.0) fL MCH 33.0 (25.0-35.0) pg MCHC 33.9 (31.0-37.0) g/dL RDW 15.8 H (11.5-15.5) % Plt Count 207 (150-450) k/uL MPV 7.3 Neutrophils % 74 % Lymphocytes % 12 % Monocytes % 8 % Eosinophils % 3 % Basophils % 0 % Neutrophils # 5.6 (1.3-7.7) k/uL Lymphocytes # 0.9 L (1.0-4.8) k/uL Monocytes # 0.6 (0-1.0) k/uL Eosinophils # 0.3 (0-0.7) k/uL Basophils # 0.0 (0-0.2) k/uL Hypochromasia Slight Macrocytosis Slight PT 23.5 H (9.0-12.0) sec INR 2.4 H (<1.2) APTT 32.8 H (22.0-30.0) sec Sodium 139 (137-145) mmol/L Potassium 4.8 (3.5-5.1) mmol/L Chloride 99 (98-107) mmol/L Carbon Dioxide 28 (22-30) mmol/L Anion Gap 12 mmol/L BUN 33 H (9-20) mg/dL Creatinine 4.28 H (0.66-1.25) mg/dL Est GFR (CKD-EPI)AfAm 14 (>60 ml/min/1.73 sqM) Est GFR (CKD-EPI)NonAf 12 (>60 ml/min/1.73 sqM) Glucose 106 H (74-99) mg/dL Calcium 9.9 (8.4-10.2) mg/dL Phosphorus 4.1 (2.5-4.5) mg/dL Magnesium 2.2 (1.6-2.3) mg/dL Total Bilirubin 0.9 (0.2-1.3) mg/dL AST 36 (17-59) U/L ALT 17 (4-49) U/L Alkaline Phosphatase 52 (38-126) U/L Troponin I (0.000-0.034) ng/mL NT-Pro-B Natriuret Pep 59551 pg/mL Total Protein 7.0 (6.3-8.2) g/dL Albumin 4.1 (3.5-5.0) g/dL Blood Type Confirm 05/16/23 05/16/23 Range/Units 16:44 16:44 WBC (3.8-10.6) k/uL RBC (4.30-5.90) m/uL Hgb (13.0-17.5) gm/dL Hct (39.0-53.0) % MCV (80.0-100.0) fL MCH (25.0-35.0) pg MCHC (31.0-37.0) g/dL RDW (11.5-15.5) % Plt Count (150-450) k/uL MPV Neutrophils % % Lymphocytes % % Monocytes % % Eosinophils % % Basophils % % Neutrophils # (1.3-7.7) k/uL Lymphocytes # (1.0-4.8) k/uL Monocytes # (0-1.0) k/uL Eosinophils # (0-0.7) k/uL Basophils # (0-0.2) k/uL Hypochromasia Macrocytosis PT (9.0-12.0) sec INR (<1.2) APTT (22.0-30.0) sec Sodium (137-145) mmol/L Potassium (3.5-5.1) mmol/L Chloride (98-107) mmol/L Carbon Dioxide (22-30) mmol/L Anion Gap mmol/L BUN (9-20) mg/dL Creatinine (0.66-1.25) mg/dL Est GFR (CKD-EPI)AfAm (>60 ml/min/1.73 sqM) Est GFR (CKD-EPI)NonAf (>60 ml/min/1.73 sqM) Glucose (74-99) mg/dL Calcium (8.4-10.2) mg/dL Phosphorus (2.5-4.5) mg/dL Magnesium (1.6-2.3) mg/dL Total Bilirubin (0.2-1.3) mg/dL AST (17-59) U/L ALT (4-49) U/L Alkaline Phosphatase (38-126) U/L Troponin I 0.029 (0.000-0.034) ng/mL NT-Pro-B Natriuret Pep pg/mL Total Protein (6.3-8.2) g/dL Albumin (3.5-5.0) g/dL Blood Type Confirm O Positive - EKG Data -: EKG Interpreted by Me (EKG is paced 60 QRS 156 QTc 494) - Radiology Data Radiology results: report reviewed (Chest x-ray and x-ray hip pelvis positive for hip fracture), image reviewed Disposition Clinical Impression: Fall, Closed left hip fracture, Weakness Disposition: ADMITTED IP TO THIS HOSP Condition: Stable Is patient prescribed a controlled substance at d/c from ED?: No Time of Disposition: 19:00
[2023-05-16 17:06] LABS: Basophils % (A) 0 %; Eosinophils # (A) 0.3 k/uL (0-0.7); Eosinophils % (A) 3 %; HCT 32.4 % (39.0-53.0); Hypochromasia Slight; Lymphocytes # (A) 0.9 k/uL (1.0-4.8); Lymphocytes % (A) 12 %; MCHC 33.9 g/dL (31.0-37.0); MCV 97.4 fL (80.0-100.0); Macrocytosis Slight; Mean Platelet Volume 7.3; Monocytes # (A) 0.6 k/uL (0-1.0); Monocytes % (A) 8 %; Neutrophils # (A) 5.6 k/uL (1.3-7.7); Neutrophils % (A) 74 %; Platelet Count 207 k/uL (150-450); RBC 3.33 m/uL (4.30-5.90); RDW 15.8 % (11.5-15.5); WBC 7.5 k/uL (3.8-10.6)
[2023-05-16 17:17] LABS: INR 2.4 (<1.2); Partial Thromboplastin Time 32.8 sec (22.0-30.0); Prothrombin Time 23.5 sec (9.0-12.0)
[2023-05-16 17:18] LABS: AST 36 U/L (17-59); African American GFR (CKD) 14 (>60 ml/min/1.73 sqM); Alkaline Phosphatase 52 U/L (38-126); Anion Gap 12 mmol/L; Blood Urea Nitrogen 33 mg/dL (9-20); Calcium 9.9 mg/dL (8.4-10.2); Carbon Dioxide 28 mmol/L (22-30); Chloride 99 mmol/L (98-107); Glucose 106 mg/dL (74-99); Non-African American GFR(CKD) 12 (>60 ml/min/1.73 sqM); Sodium 139 mmol/L (137-145)
[2023-05-16 17:20] LABS: ALT 17 U/L (4-49); Albumin 4.1 g/dL (3.5-5.0); Magnesium 2.2 mg/dL (1.6-2.3); Phosphorus 4.1 mg/dL (2.5-4.5); Potassium 4.8 mmol/L (3.5-5.1); Total Bilirubin 0.9 mg/dL (0.2-1.3)
[2023-05-16 17:26] LABS: NT-Pro-B-Type Natriuretic Pept 14800 pg/mL
--- NOTE | 2023-05-16 17:53 | XR ---
PROCEDURE: XR Hip LT and AP Pelvis - 3V DATE AND TIME: 05/16/2023 5:05 PM CLINICAL INDICATION: PHH; fall, pain TECHNIQUE: Department protocol COMPARISON: None FINDINGS: There is an intertrochanteric left femoral fracture which is mildly comminuted. The femoral head is well-seated within the acetabulum. No other fractures. IMPRESSION: Intertrochanteric fracture.
--- NOTE | 2023-05-16 17:58 | XR ---
EXAMINATION: XR chest 1V DATE AND TIME: 05/16/2023 5:05 PM CLINICAL INDICATION: PHH; fall, pain TECHNIQUE: AP supine radiograph COMPARISON: None FINDINGS: Cardiac pacemaker is noted, with moderate enlargement of the cardiac silhouette. There is severe silhouetting of the pulmonary vasculature throughout the right lung, with consolidati ve opacity throughout the right hilar and right infrahilar/right lower lobe. This unilateral degree o f abnormality suggests pneumonia. Would suggest obtaining CT chest with contrast to fully characteriz e. No evidence of fracture, as seen. Limitation of the study: Supine radiography cannot exclude pneumothorax, but there are no visualized abnormal gas collections. IMPRESSION: Marked abnormalities as discussed.
[2023-05-16] MEDS ORDERED: ONDANSETRON 4 MG/2 ML VIAL IVP PRN (19:03)
[2023-05-16] MEDS ORDERED: NALOXONE 0.4 MG/ML 1 ML VIAL IV PRN (19:03)
[2023-05-16 19:18] LABS: Appearance,Urine Clear (Clear); Bilirubin,Urine Negative (Negative); Blood,Urine Moderate (Negative); Color,Urine Light Red; Glucose,Urine (UA) Negative (Negative); Ketones,Urine Negative (Negative); Leukocyte Esterase,Urine Small (Negative); Mucus,Urine Rare /hpf; Nitrite,Urine Negative (Negative); Protein,Urine 2+ (Negative); RBC,Urine 25 /hpf (0-5); Specific Gravity,Urine 1.018 (1.001-1.035); Squamous Epithelial Cell,Urine <1 /hpf (0-4); WBC,Urine 19 /hpf (0-5)
[2023-05-16] MEDS: SODIUM CHLORIDE 0.9% 1,000 ML IV SCH (19:52)
[2023-05-16] MEDS: MORPHINE SULFATE 4 MG/ML SYRINGE IV PRN (20:24)
[2023-05-16] MEDS ORDERED: SEVELAMER 800 MG TAB PO PRN (21:55)
[2023-05-17] MEDS: MORPHINE SULFATE 4 MG/ML SYRINGE IV PRN ×3 (06:09→21:59)
[2023-05-17 09:22] LABS: Prothrombin Time 29.5 sec (9.0-12.0)
[2023-05-17] MEDS: SODIUM CHLORIDE 0.9% 1,000 ML IV SCH (10:08)
--- NOTE | 2023-05-17 11:22 | P.NPCON ---
History of Present Illness - Reason for Consult end stage renal disease - History of Present Illness Reason for consultation: End-stage renal disease History of present illness: Patient is a 78-year-old male seen in consultation for end-stage renal disease. He is maintained on hemodialysis on Saturday schedule. Patient states he was hanging the flag outside on his porch and fell. Patient states he fell on his left hip and is noted to have a fracture. He is due for dialysis today. Denies chest pain or shortness of breath. No vomiting or diarrhea. Patient has history of coronary artery disease and underwent cardiac catheterization in January 2023. Ejection fraction was 40-50%. He also has history of moderate to severe mitral and tricuspid regurgitation. No history of diabetes. No chest pain or shortness of breath at this time. Vital signs are stable. General: No acute distress. HEENT: Head exam is unremarkable. LUNGS: No audible rhonchi or wheezes. HEART: Rate and Rhythm are regular. ABDOMEN: Soft, nontender. EXTREMITITES: No edema. Past Medical History Past Medical History: Atrial Fibrillation, Dialysis, Eye Disorder Additional Past Medical History / Comment(s): bheart murmur, Kidney Failure- Diamond lysis MOWEFR-has little urine output (approx twice per day). Cataracts. History of Any Multi-Drug Resistant Organisms: None Reported Past Surgical History: Joint Replacement, Pacemaker Additional Past Surgical History / Comment(s): Cardiac stents, right hip replacement, left upper arm av fistula Past Anesthesia/Blood Transfusion Reactions: No Reported Reaction Additional Past Anesthesia/Blood Transfusion Reaction / Comment(s): no problems with prior blood transfusion Type of Cardiac Device: Unknown Device Placement Date:: 2010 Past Psychological History: No Psychological Hx Reported Smoking Status: Never smoker Past Alcohol Use History: None Reported Past Drug Use History: None Reported - Past Family History Father Family Medical History: Hypertension Brother(s) Family Medical History: Cancer Additional Family Medical History / Comment(s): 2 brothers of cancer. Medications and Allergies Home Medications Medication Instructions Recorded Confirmed Type Aspirin EC [Ecotrin Low Dose] 81 mg PO DAILY 08/04/21 05/16/23 History Dialyvite 1 tab PO DAILY 08/04/21 05/16/23 History Lidocaine-Prilocaine Cream [Emla 1 applic TOPICAL DAILY PRN 12/15/21 05/16/23 History Cream 2.5%/2.5%] Sevelamer Carbonate 1,600 mg PO TID-W/MEALS 08/28/22 05/16/23 History levOCARNitine [Levocarnitine] 330 mg PO DAILY 01/15/23 05/16/23 History Albuterol Inhaler [Ventolin Hfa 1 - 2 puff INHALATION RT-Q6H PRN 05/16/23 05/16/23 History Inhaler] Atorvastatin [Lipitor] 20 mg PO HS 05/16/23 05/16/23 History Diclofenac Sodium Gel [Voltaren 1 applic TOPICAL QID PRN 05/16/23 05/16/23 History Gel] Furosemide [Lasix] 40 mg PO BID 05/16/23 05/16/23 History Montelukast [Singulair] 10 mg PO HS 05/16/23 05/16/23 History Sevelamer [Renvela] 800 mg PO DAILY PRN 05/16/23 05/16/23 History Sildenafil [Revatio] 20 mg PO HS 05/16/23 05/16/23 History Warfarin [Coumadin] 2.5 mg PO HS 05/16/23 05/16/23 History buPROPion HCL [Wellbutrin XL] 150 mg PO DAILY 05/16/23 05/16/23 History Allergies Allergy/AdvReac Type Severity Reaction Status Date / Time No Known Allergies Allergy Verified 05/16/23 16:30 Physical Exam Vitals: Vital Signs Temp Pulse Pulse Resp BP BP Pulse Ox 05/17/23 07:15 97.8 F 60 20 135/69 99 05/17/23 02:00 97.9 F 63 144/61 99 05/16/23 20:15 98.3 F 56 L 18 162/73 99 05/16/23 20:01 67 18 173/83 100 05/16/23 18:21 60 18 134/68 99 05/16/23 17:10 60 12 138/68 93 L 05/16/23 15:44 97.9 F 61 18 127/56 99 Intake and Output 05/16/23 05/17/23 05/17/23 22:59 06:59 14:59 Output Total 0 Balance 0 Output: Urine 0 Other: Voiding Method Indwelling Catheter # Voids 0 Weight 79.379 kg Results - Lab Results Most recent lab results Calcium 9.9 mg/dL (8.4-10.2) 05/16/23 16:44 Phosphorus 4.1 mg/dL (2.5-4.5) 05/16/23 16:44 Magnesium 2.2 mg/dL (1.6-2.3) 05/16/23 16:44 05/16/23 16:44 05/16/23 16:44 Assessment and Plan Plan: Assessment: 1. End-stage renal disease maintained on hemodialysis on Saturday schedule. 2. Chronic systolic CHF with ejection fraction of 50% with moderate to severe mitral and tricuspid regurgitation. 3. Status post fall for left hip fracture. 4. Chronic disease mineral bone disease maintained on Renvela. Plan: Hemodialysis today. Total arthroplasty pending. Hep-Lock IV fluids. Thank you for the consultation. I will continue to follow the patient with you during his hospital stay.
--- NOTE | 2023-05-17 11:35 | P.HPOR ---
History of Present Illness H&P Date: 05/17/23 Chief Complaint: Left hip fracture The patient is 78 y/o male with a past medical history including CHF, kidney disease and A. fib, who presented to the ER yesterday afternoon after sustaining a ground level fall yesterday. He lost his balance while fixing his flag pole outside at home and fell onto his left side. The patient did undergo a right hip fracture surgery in [place] a little over 3 years ago. He has seen Dr. Walker in our office due to painful hardware and ongoing right hip pain last year. Upon evaluation in the ER, the patient was found to have a left hip intertronchric fracture. He was admitted to our service for surgical intervention. Internal medicine and nephrology are on consult. He is scheduled for hemodialysis today. He is NPO currently. INR this morning is 3.0 and he does take Coumadin for his A. fib. The patient states his pain is controlled at this time. Review of Systems Constitutional: Denies chills, Denies fatigue, Denies fever Cardiovascular: Denies chest pain, Denies shortness of breath Respiratory: Denies cough Gastrointestinal: Denies diarrhea, Denies nausea, Denies vomiting Musculoskeletal: left: hip pain, hip stiffness, hip swelling Past Medical History Past Medical History: Atrial Fibrillation, Dialysis, Eye Disorder Additional Past Medical History / Comment(s): bheart murmur, Kidney Failure- Dialysis MOWEFR-has little urine output (approx twice per day). Cataracts. History of Any Multi-Drug Resistant Organisms: None Reported Past Surgical History: Joint Replacement, Pacemaker Additional Past Surgical History / Comment(s): Cardiac stents, right hip replacement, left upper arm av fistula Past Anesthesia/Blood Transfusion Reactions: No Reported Reaction Additional Past Anesthesia/Blood Transfusion Reaction / Comment(s): no problems with prior blood transfusion Type of Cardiac Device: Unknown Device Placement Date:: 2010 Past Psychological History: No Psychological Hx Reported Smoking Status: Never smoker Past Alcohol Use History: None Reported Past Drug Use History: None Reported - Past Family History Father Family Medical History: Hypertension Brother(s) Family Medical History: Cancer Additional Family Medical History / Comment(s): 2 brothers of cancer. Medications and Allergies Home Medications Medication Instructions Recorded Confirmed Type Aspirin EC [Ecotrin Low Dose] 81 mg PO DAILY 08/04/21 05/16/23 History Dialyvite 1 tab PO DAILY 08/04/21 05/16/23 History Lidocaine-Prilocaine Cream [Emla 1 applic TOPICAL DAILY PRN 12/15/21 05/16/23 History Cream 2.5%/2.5%] Sevelamer Carbonate 1,600 mg PO TID-W/MEALS 08/28/22 05/16/23 History levOCARNitine [Levocarnitine] 330 mg PO DAILY 01/15/23 05/16/23 History Albuterol Inhaler [Ventolin Hfa 1 - 2 puff INHALATION RT-Q6H PRN 05/16/23 05/16/23 History Inhaler] Atorvastatin [Lipitor] 20 mg PO HS 05/16/23 05/16/23 History Diclofenac Sodium Gel [Voltaren 1 applic TOPICAL QID PRN 05/16/23 05/16/23 History Gel] Furosemide [Lasix] 40 mg PO BID 05/16/23 05/16/23 History Montelukast [Singulair] 10 mg PO HS 05/16/23 05/16/23 History Sevelamer [Renvela] 800 mg PO DAILY PRN 05/16/23 05/16/23 History Sildenafil [Revatio] 20 mg PO HS 05/16/23 05/16/23 History Warfarin [Coumadin] 2.5 mg PO HS 05/16/23 05/16/23 History buPROPion HCL [Wellbutrin XL] 150 mg PO DAILY 05/16/23 05/16/23 History Allergies Allergy/AdvReac Type Severity Reaction Status Date / Time No Known Allergies Allergy Verified 05/16/23 16:30 Physical Examination The patient is a 78 year old male that is no acute distress. He is alert and oriented x3. The patient's head is normocephalic and atraumatic. Exam of the cervical spine reveals no pain upon palpation or range of motion. Exam of the bilateral upper extremities reveal no obvious deformities or pain upon range of motion. Exam of the right lower extremity reveals no pain upon palpation. Exam of the left lower extremity reveals a externally rotated and shortened leg. Moderate pain upon palpation to the lateral hip. There is pain upon logrolling and any range of motion of the leg. Bilateral calves are soft and nontender. Patient has good foot and ankle motion bilaterally. Neurological and circulatory status is intact. Results X-rays of the left hip and pelvis reveal a minimally displaced intertronchric fracture. Hardware noted to the right femur. - Labs Labs: Abnormal Lab Results - Last 24 Hours (Table) 05/16/23 05/16/23 05/16/23 Range/Units 16:44 16:44 16:44 RBC 3.33 L (4.30-5.90) m/uL Hgb 11.0 L (13.0-17.5) gm/dL Hct 32.4 L (39.0-53.0) % RDW 15.8 H (11.5-15.5) % Lymphocytes # 0.9 L (1.0-4.8) k/uL PT 23.5 H (9.0-12.0) sec INR 2.4 H (<1.2) APTT 32.8 H (22.0-30.0) sec BUN 33 H (9-20) mg/dL Creatinine 4.28 H (0.66-1.25) mg/dL Glucose 106 H (74-99) mg/dL Urine Protein (Negative) Urine Blood (Negative) Ur Leukocyte Esterase (Negative) Urine RBC (0-5) /hpf Urine WBC (0-5) /hpf Urine Mucus (None) /hpf 05/16/23 05/17/23 Range/Units 19:06 08:56 RBC (4.30-5.90) m/uL Hgb (13.0-17.5) gm/dL Hct (39.0-53.0) % RDW (11.5-15.5) % Lymphocytes # (1.0-4.8) k/uL PT 29.5 H (9.0-12.0) sec INR 3.0 H (<1.2) APTT (22.0-30.0) sec BUN (9-20) mg/dL Creatinine (0.66-1.25) mg/dL Glucose (74-99) mg/dL Urine Protein 2+ H (Negative) Urine Blood Moderate H (Negative) Ur Leukocyte Esterase Small H (Negative) Urine RBC 25 H (0-5) /hpf Urine WBC 19 H (0-5) /hpf Urine Mucus Rare H (None) /hpf H & H 05/16/23 Range/Units 16:44 Hgb 11.0 L (13.0-17.5) gm/dL Hct 32.4 L (39.0-53.0) % Coagulation 05/16/23 05/17/23 Range/Units 16:44 08:56 INR 2.4 H 3.0 H (<1.2) Result Diagrams: 05/16/23 16:44 05/16/23 16:44 Assessment and Plan (1) Closed left hip fracture Current Visit: Yes Status: Acute Code(s): S72.002A - FRACTURE OF UNSP PART OF NECK OF LEFT FEMUR, INIT SNOMED Code(s): 616895560 (2) Fall Current Visit: Yes Status: Acute Code(s): W19.XXXA - UNSPECIFIED FALL, INITIAL ENCOUNTER SNOMED Code(s): 6878200 (3) A-fib Current Visit: Yes Status: Acute Code(s): I48.91 - UNSPECIFIED ATRIAL FIBRILLATION SNOMED Code(s): 74604512 (4) End stage renal disease Current Visit: Yes Status: Acute Code(s): N18.6 - END STAGE RENAL DISEASE SNOMED Code(s): 77278019 (5) CHF (congestive heart failure) Current Visit: Yes Status: Acute Code(s): I50.9 - HEART FAILURE, UNSPECIFIED SNOMED Code(s): 27837065 Plan: The clinical and x-ray findings were discussed with the patient and his . The case was discussed at length with Dr. Tsang. Treatment options were discussed and surgical intervention is recommended. We discussed the surgical plan as well as the expected postoperative course. Risks and benefits were reviewed including (but not limited to) the risks of infection, bleeding, blood clots, delayed or nonunion, anesthesia-related complications and possible need for additional surgery. Questions were invited and answered. The patient expressed understanding and wishes to proceed with surgery. Cardiology has now been consulted and he will receive hemodialysis today. Vitamin K has been ordered. Recheck INR tomorrow morning. The patient will be kept on bedrest. Continue PRN pain management. He will NPO at midnight tonight. He is scheduled for a closed r eduction with insertion of cephalomedullary nail of the left hip tomorrow morning. We will await pre-op clearance from internal medicine, nephrology, and cardiology.
[2023-05-17] MEDS ORDERED: PHYTONADIONE ORAL 5 MG/5 ML ORAL.SYRG PO STA (11:38)
[2023-05-17] MEDS: FUROSEMIDE 40 MG TAB PO SCH ×2 (12:46→18:30)
[2023-05-17] MEDS: buPROPion XL 150 MG TAB.ER.24H PO SCH (12:51)
[2023-05-17 12:59] LABS: Basophils # (A) 0.04 X 10*3/uL (0.00-0.10); Basophils % (A) 0.4 %; Eosinophils # (A) 0.27 X 10*3/uL (0.04-0.35); Eosinophils % (A) 2.9 %; HCT 29.9 % (39.6-50.0); HGB 9.3 d/dL (13.0-17.0); Lymphocytes # (A) 0.97 X 10*3/uL (0.90-5.00); Lymphocytes % (A) 10.4 %; MCH 31.7 pg (27.0-32.0); MCHC 31.1 d/dL (32.0-37.0); Mean Platelet Volume 9.1 FL (9.5-12.2); Monocytes # (A) 1.02 X 10*3/uL (0.20-1.00); NRBC Per 100 WBC 0 X 10*3/uL (0.00-0.01); Neutrophils # (A) 6.97 X 10*3/uL (1.80-7.70); Platelet Count 163 X 10*3/uL (140-440); RBC 2.93 X 10*6/uL (4.40-5.60); RDW 15.5 % (11.5-14.5)
[2023-05-17 14:03] LABS: ALT 13 U/L (10-49); AST 14 U/L (14-35); Albumin/Globulin Ratio 1.82 Ratio (1.60-3.17); Alkaline Phosphatase 60 U/L (41-126); BUN/Creat Ratio 6.56 Ratio (12.00-20.00); Blood Urea Nitrogen 34.1 mg/dL (9.0-27.0); Calcium 9.4 mg/dL (8.7-10.3); Carbon Dioxide 26.4 mmol/L (21.6-31.8); Chloride 101 mmol/L (96-109); Globulin 2.2 d/dL (1.6-3.3); Glucose 107 mg/dL (70-110); Magnesium 2.4 mg/dL (1.5-2.4); Phosphorus 5.9 mg/dL (2.4-5.1); Potassium 4.4 mmol/L (3.5-5.5); Sodium 142 mmol/L (135-145); Total Bilirubin 0.4 mg/dL (0.3-1.2); Total Protein 6.2 d/dL (6.2-8.2)
[2023-05-17] MEDS ORDERED: ALBUTEROL NEBULIZED 2.5 MG/3 ML INHALATION PRN (15:11)
--- NOTE | 2023-05-17 15:11 | P.CONS ---
History of Present Illness - Reason for Consult Consult date: 05/17/23 Medical management - History of Present Illness History of present illness; patient is a 78-year-old gentleman with past medical history significant for atrial fibrillation on Coumadin, CHF, end-stage renal disease on dialysis who presented to the ER after sustaining a fall. Patient was working in his front yard trying to fix up flag pole when he lost his balance and fell on his left side. Patient never lost consciousness, denies any feeling of lightheadedness or dizziness prior to this episode. Patient started having severe left-sided hip pain for which he came to the ER. Initial lab work done in the ER showed WBC 7.4 hemoglobin 11, platelet count 207, INR 2.4, sodium 139, potassium 4.8, BUN 33, creatinine 4.28 X-rays of the left hip and pelvis reveal a minimally displaced intertronchric fracture Patient was admitted to orthopedic service and medicine team were consulted for medical management REVIEW OF SYSTEMS: CONSTITUTIONAL: No fever, no malaise, no fatigue. HEENT: No recent visual problems or hearing problems. Denied any sore throat. CARDIOVASCULAR: No chest pain, orthopnea, PND, no palpitations, no syncope. PULMONARY: No shortness of breath, no cough, no hemoptysis. GASTROINTESTINAL: No diarrhea, no nausea, no vomiting, no abdominal pain. NEUROLOGICAL: No headaches, no weakness, no numbness. HEMATOLOGICAL: Denies any bleeding or petechiae. GENITOURINARY: Denies any burning micturition, frequency, or urgency. MUSCULOSKELETAL/RHEUMATOLOGICAL: Left hip pain ENDOCRINE: Denies any polyuria or polydipsia. The rest of the 14-point review of systems is negative. PHYSICAL EXAMINATION: GENERAL: The patient is alert and oriented x3, not in any acute distress. Well developed, well nourished. HEENT: Pupils are round and equally reacting to light. EOMI. No scleral icterus. No conjunctival pallor. Normocephalic, atraumatic. No pharyngeal erythema. No thyromegaly. CARDIOVASCULAR: S1 and S2 present. No murmurs, rubs, or gallops. PULMONARY: Chest is clear to auscultation, no wheezing or crackles. ABDOMEN: Soft, nontender, nondistended, normoactive bowel sounds. No palpable organomegaly. MUSCULOSKELETAL: Left Hip tender EXTREMITIES: No cyanosis, clubbing, or pedal edema. NEUROLOGICAL: Gross neurological examination did not reveal any focal deficits. SKIN: No rashes. Assessment and plan Left Hip fracture Fall Atrial fibrillation on Coumadin End-stage renal disease on dialysis CHF Monitor vital signs Monitor CBC Monitor CMP Follow-up precautions Continue pain management per orthopedics Hold Coumadin for now Give 5 mg of vitamin K Continue dialysis per nephrology Resume home meds Cardiology consulted Labs and medication were reviewed.. Continue same treatment. Continue with symptomatic treatment. Resume home medication. Monitor labs and vitals. DVT and GI prophylaxis. Further recommendations as per clinical course of the patient Dictation was produced using [employer] dictation software. please excuse any grammatical, word or spelling errors. Past Medical History Past Medical History: Atrial Fibrillation, Dialysis, Eye Disorder Additional Past Medical History / Comment(s): bheart murmur, Kidney Failure- Dialysis MOWEFR-has little urine output (approx twice per day). Cataracts. History of Any Multi-Drug Resistant Organisms: None Reported Past Surgical History: Joint Replacement, Pacemaker Additional Past Surgical History / Comment(s): Cardiac stents, right hip replacement, left upper arm av fistula Past Anesthesia/Blood Transfusion Reactions: No Reported Reaction Additional Past Anesthesia/Blood Transfusion Reaction / Comm: no problems with prior blood transfusion Type of Cardiac Device: Unknown Device Placement Date:: 2010 Past Psychological History: No Psychological Hx Reported Smoking Status: Never smoker Past Alcohol Use History: None Reported Past Drug Use History: None Reported - Past Family History Father Family Medical History: Hypertension Brother(s) Family Medical History: Cancer Additional Family Medical History / Comment(s): 2 brothers of cancer. Medications and Allergies Home Medications Medication Instructions Recorded Confirmed Type Aspirin EC [Ecotrin Low Dose] 81 mg PO DAILY 08/04/21 05/16/23 History Dialyvite 1 tab PO DAILY 08/04/21 05/16/23 History Lidocaine-Prilocaine Cream [Emla 1 applic TOPICAL DAILY PRN 12/15/21 05/16/23 Hi story Cream 2.5%/2.5%] Sevelamer Carbonate 1,600 mg PO TID-W/MEALS 08/28/22 05/16/23 History levOCARNitine [Levocarnitine] 330 mg PO DAILY 01/15/23 05/16/23 History Albuterol Inhaler [Ventolin Hfa 1 - 2 puff INHALATION RT-Q6H PRN 05/16/23 05/16/23 History Inhaler] Atorvastatin [Lipitor] 20 mg PO HS 05/16/23 05/16/23 History Diclofenac Sodium Gel [Voltaren 1 applic TOPICAL QID PRN 05/16/23 05/16/23 History Gel] Furosemide [Lasix] 40 mg PO BID 05/16/23 05/16/23 History Montelukast [Singulair] 10 mg PO HS 05/16/23 05/16/23 History Sevelamer [Renvela] 800 mg PO DAILY PRN 05/16/23 05/16/23 History Sildenafil [Revatio] 20 mg PO HS 05/16/23 05/16/23 History Warfarin [Coumadin] 2.5 mg PO HS 05/16/23 05/16/23 History buPROPion HCL [Wellbutrin XL] 150 mg PO DAILY 05/16/23 05/16/23 History Allergies Allergy/AdvReac Type Severity Reaction Status Date / Time No Known Allergies Allergy Verified 05/16/23 16:30 Physical Exam Vitals: Vital Signs Temp Pulse Pulse Resp BP BP Pulse Ox 05/17/23 14:00 97.9 F 60 18 121/62 93 L 05/17/23 07:15 97.8 F 60 20 135/69 99 05/17/23 02:00 97.9 F 63 144/61 99 05/16/23 20:15 98.3 F 56 L 18 162/73 99 05/16/23 20:01 67 18 173/83 100 05/16/23 18:21 60 18 134/68 99 05/16/23 17:10 60 12 138/68 93 L 05/16/23 15:44 97.9 F 61 18 127/56 99 Intake and Output 05/16/23 05/17/23 05/17/23 22:59 06:59 14:59 Output Total 0 Balance 0 Output: Urine 0 Other: Voiding Method Indwelling Catheter Indwelling Catheter # Voids 0 Weight 79.379 kg Results CBC & Chem 7: 05/17/23 06:30 05/17/23 06:30 Labs: Abnormal Lab Results - Last 24 Hours (Table) 05/16/23 05/16/23 05/16/23 Range/Units 16:44 16:44 16:44 RBC 3.33 L (4.30-5.90) m/uL Hgb 11.0 L (13.0-17.5) gm/dL Hct 32.4 L (39.0-53.0) % MCV (80.0-97.0) FL MCHC (32.0-37.0) d/dL RDW 15.8 H (11.5-15.5) % MPV (9.5-12.2) FL Lymphocytes # 0.9 L (1.0-4.8) k/uL Monocytes # (0.20-1.00) X 10*3/uL PT 23.5 H (9.0-12.0) sec INR 2.4 H (<1.2) APTT 32.8 H (22.0-30.0) sec Anion Gap (4.00-12.00) mmol/L BUN 33 H (9-20) mg/dL Creatinine 4.28 H (0.66-1.25) mg/dL Est GFR (CKD-EPI) (>=60) BUN/Creatinine Ratio (12.00-20.00) Ratio Glucose 106 H (74-99) mg/dL Phosphorus (2.4-5.1) mg/dL Urine Protein (Negative) Urine Blood (Negative) Ur Leukocyte Esterase (Negative) Urine RBC (0-5) /hpf Urine WBC (0-5) /hpf Urine Mucus (None) /hpf 05/16/23 05/17/23 05/17/23 Range/Units 19:06 06:30 06:30 RBC 2.93 L (4.30-5.90) m/uL Hgb 9.3 L (13.0-17.5) gm/dL Hct 29.9 L (39.0-53.0) % MCV 102.0 H (80.0-97.0) FL MCHC 31.1 L (32.0-37.0) d/dL RDW 15.5 H (11.5-15.5) % MPV 9.1 L (9.5-12.2) FL Lymphocytes # (1.0-4.8) k/uL Monocytes # 1.02 H (0.20-1.00) X 10*3/uL PT (9.0-12.0) sec INR (<1.2) APTT (22.0-30.0) sec Anion Gap 14.60 H (4.00-12.00) mmol/L BUN 34.1 H (9-20) mg/dL Creatinine 5.2 H (0.66-1.25) mg/dL Est GFR (CKD-EPI) 11 L (>=60) BUN/Creatinine Ratio 6.56 L (12.00-20.00) Ratio Glucose (74-99) mg/dL Phosphorus 5.9 H (2.4-5.1) mg/dL Urine Protein 2+ H (Negative) Urine Blood Moderate H (Negative) Ur Leukocyte Esterase Small H (Negative) Urine RBC 25 H (0-5) /hpf Urine WBC 19 H (0-5) /hpf Urine Mucus Rare H (None) /hpf 05/17/23 Range/Units 08:56 RBC (4.30-5.90) m/uL Hgb (13.0-17.5) gm/dL Hct (39.0-53.0) % MCV (80.0-97.0) FL MCHC (32.0-37.0) d/dL RDW (11.5-15.5) % MPV (9.5-12.2) FL Lymphocytes # (1.0-4.8) k/uL Monocytes # (0.20-1.00) X 10*3/uL PT 29.5 H (9.0-12.0) sec INR 3.0 H (<1.2) APTT (22.0-30.0) sec Anion Gap (4.00-12.00) mmol/L BUN (9-20) mg/dL Creatinine (0.66-1.25) mg/dL Est GFR (CKD-EPI) (>=60) BUN/Creatinine Ratio (12.00-20.00) Ratio Glucose (74-99) mg/dL Phosphorus (2.4-5.1) mg/dL Urine Protein (Negative) Urine Blood (Negative) Ur Leukocyte Esterase (Negative) Urine RBC (0-5) /hpf Urine WBC (0-5) /hpf Urine Mucus (None) /hpf
[2023-05-17 15:53] LABS: INR 3.3 (<1.2); Prothrombin Time 31.8 sec (9.0-12.0)
[2023-05-17] MEDS: levOCARNitine (WITH SUGAR) 100 MG/ML BOTTLE PO SCH (18:30)
[2023-05-17] MEDS: ATORVASTATIN 20 MG TAB PO SCH (21:58)
[2023-05-17] MEDS: MONTELUKAST 10 MG TAB PO SCH (21:58)
[2023-05-18] MEDS: MORPHINE SULFATE 4 MG/ML SYRINGE IV PRN (01:52)
[2023-05-18 08:03] LABS: INR 1.5 (<1.2); Prothrombin Time 15.4 sec (9.0-12.0)
[2023-05-18 08:25] LABS: INR 1.6 (<1.2); Prothrombin Time 15.6 sec (9.0-12.0)
--- NOTE | 2023-05-18 09:20 | P.CRDCN ---
History of Present Illness History of present illness: atrial fib, permanent ppm, complete heart block cad plan proceed with hip surgery magnet over ppm during surgery resume warfarin and aspirin post op This is Dr. Zhou dictating a consult on this patient The patient was interviewed and examined IMPRESSION / ASSESSMENT: Admitted with a fall and an intertrochanteric fracture awaiting surgery Underlying atrial fibrillation, permanent with ventricular paced rhythm Status post pacemaker implant in the past and likely complete heart block Stage renal disease History of CAD PLAN: The patient does not have any symptoms of acute exacerbation of congestive heart failure nor does he have any symptoms of angina or syncope His pacemaker appears to be functioning normally Proceed with hip surgery.: Is on hold along with aspirin and this should be resumed after the procedure magnet over ppm during surgery resume warfarin and aspirin post op HPI patient was admitted for hip fracture on the left side after a fall When I interviewed him he was clear that he had fallen and had not had a syncopal spell His family members with him at that time He denied any chest discomfort in the weeks prior to admission No undue shortness of breath no dizziness no lightheadedness no palpitations He has a pacemaker with underlying atrial fibrillation he is a paced rhythm, likely complete heart block Past medical history of atrial fibrillation on Coumadin, end-stage renal disease on dialysis, preserved LV systolic function and diastolic heart failure, chronic X-ray reveals minimally displaced intertrochanteric fracture ROS: No fever chills or rigors, no cough, phlegm or expectoration, no nausea, vomiting or diarrhea, no hematuria, dysuria, no musculoskeletal complaints, no strokes or seizures, no skin lesions. EXAMINATION: 140/66 mmHg pulse rate in the 60s Normal heart sounds no murmurs Breath sounds are clear REVIEW OF LABS, ECG & MEDICAL DATA Twelve-lead EKG shows ventricular paced rhythm with underlying atrial fibri llation Past Medical History Past Medical History: Atrial Fibrillation, Dialysis, Eye Disorder Additional Past Medical History / Comment(s): bheart murmur, Kidney Failure- Dialysis MOWEFR-has little urine output (approx twice per day). Cataracts. History of Any Multi-Drug Resistant Organisms: None Reported Past Surgical History: Joint Replacement, Pacemaker Additional Past Surgical History / Comment(s): Cardiac stents, right hip replacement, left upper arm av fistula Past Anesthesia/Blood Transfusion Reactions: No Reported Reaction Additional Past Anesthesia/Blood Transfusion Reaction / Comment(s): no problems with prior blood transfusion Type of Cardiac Device: Unknown Device Placement Date:: 2010 Past Psychological History: No Psychological Hx Reported Smoking Status: Never smoker Past Alcohol Use History: None Reported Past Drug Use History: None Reported - Past Family History Father Family Medical History: Hypertension Brother(s) Family Medical History: Cancer Additional Family Medical History / Comment(s): 2 brothers of cancer. Medications and Allergies Home Medications Medication Instructions Recorded Confirmed Type Dialyvite 1 tab PO DAILY 08/04/21 05/16/23 History RX: Aspirin EC [Ecotrin Low Dose] 81 mg PO DAILY 08/04/21 05/16/23 History Lidocaine-Prilocaine Cream [Emla 1 applic TOPICAL DAILY PRN 12/15/21 05/16/23 History Cream 2.5%/2.5%] RX: Sevelamer Carbonate 1,600 mg PO TID-W/MEALS 08/28/22 05/16/23 History levOCARNitine [Levocarnitine] 330 mg PO DAILY 01/15/23 05/16/23 History Albuterol Inhaler [Ventolin Hfa 1 - 2 puff INHALATION RT-Q6H PRN 05/16/23 05/16/23 History Inhaler] Atorvastatin [Lipitor] 20 mg PO HS 05/16/23 05/16/23 History Diclofenac Sodium Gel [Voltaren 1 applic TOPICAL QID PRN 05/16/23 05/16/23 History Gel] Furosemide [Lasix] 40 mg PO BID 05/16/23 05/16/23 History Montelukast [Singulair] 10 mg PO HS 05/16/23 05/16/23 History Sevelamer [Renvela] 800 mg PO DAILY PRN 05/16/23 05/16/23 History Sildenafil [Revatio] 20 mg PO HS 05/16/23 05/16/23 History Warfarin [Coumadin] 2.5 mg PO HS 05/16/23 05/16/23 History buPROPion HCL [Wellbutrin XL] 150 mg PO DAILY 05/16/23 05/16/23 History Sennosides-Docusate Sodium 2 tab PO DAILY #30 tablet 05/19/23 Rx [Senokot-S] Allergies Allergy/AdvReac Type Severity Reaction Status Date / Time No Known Allergies Allergy Verified 05/16/23 16:30 Physical Exam Vitals: Vital Signs Temp Pulse Pulse Resp BP BP BP 05/18/23 08:40 66 05/18/23 08:28 66 05/18/23 07:28 97.9 F 61 17 144/72 05/18/23 02:47 98.4 F 61 12 145/65 05/18/23 01:47 98.2 F 68 12 147/63 05/18/23 01:27 98.4 F 68 11 L 158/72 05/18/23 01:10 98.5 F 69 11 L 150/65 05/18/23 01:02 98.7 F 67 150/65 05/18/23 00:28 98.4 F 65 10 L 145/65 05/17/23 23:51 98.5 F 67 11 L 130/64 05/17/23 23:31 98.4 F 63 11 L 144/68 05/17/23 20:08 97.2 F L 60 16 121/54 05/17/23 19:59 05/17/23 19:31 98.3 F 63 18 152/60 05/17/23 14:00 97.9 F 60 18 121/62 Pulse Ox 05/18/23 08:40 05/18/23 08:28 97 05/18/23 07:28 99 05/18/23 02:47 05/18/23 01:47 97 05/18/23 01:27 96 05/18/23 01:10 05/18/23 01:02 97 05/18/23 00:28 99 05/17/23 23:51 05/17/23 23:31 96 05/17/23 20:08 05/17/23 19:59 98 05/17/23 19:31 98 05/17/23 14:00 93 L Intake and Output 05/17/23 05/18/23 05/18/23 22:59 06:59 14:59 Intake Total 400 444 Output Total 2500 0 Balance -2100 444 Intake: Blood Product 444 Ffp 24 Pher Acda Cnt1 218 Unit [id number] Ffp 24 Pher Acda Cnt2 226 Unit [id number] Hemodialysis 400 Output: Urine 100 0 Hemodialysis 2400 Other: Voiding Method Indwelling Catheter # Voids 0 Results 05/19/23 09:33 05/19/23 09:33 Cardiac Enzymes 05/17/23 Range/Units 06:30 AST 14 (14-35) U/L Coagulation 05/17/23 05/17/23 05/18/23 Range/Units 08:56 15:38 06:11 PT 29.5 H 31.8 H 15.4 H (9.0-12.0) sec 05/18/23 Range/Units 07:59 PT 15.6 H (9.0-12.0) sec CBC 05/17/23 Range/Units 06:30 WBC 9.30 (4.50-10.00) X 10*3/uL RBC 2.93 L (4.40-5.60) X 10*6/uL Hgb 9.3 L (13.0-17.0) d/dL Hct 29.9 L (39.6-50.0) % Plt Count 163 (140-440) X 10*3/uL Comprehensive Metabolic Panel 05/17/23 Range/Units 06:30 Sodium 142 (135-145) mmol/L Potassium 4.4 (3.5-5.5) mmol/L Chloride 101 (96-109) mmol/L Carbon Dioxide 26.4 (21.6-31.8) mmol/L BUN 34.1 H (9.0-27.0) mg/dL Creatinine 5.2 H (0.6-1.5) mg/dL Glucose 107 (70-110) mg/dL Calcium 9.4 (8.7-10.3) mg/dL AST 14 (14-35) U/L ALT 13 (10-49) U/L Alkaline Phosphatase 60 (41-126) U/L Total Protein 6.2 (6.2-8.2) d/dL Albumin 4.0 (3.8-4.9) d/dL Current Medications Generic Name Dose Route Start Last Admin Trade Name Freq PRN Reason Stop Dose Admin Albuterol Sulfate 2.5 mg 05/17/23 15:11 05/18/23 08:28 Albuterol Nebulized 2.5 Mg/3 Ml INHALATION 2.5 mg RT-Q6H PRN Administration Shortness Of Breath Atorvastatin Calcium 20 mg 05/17/23 21:00 05/17/23 21:58 Atorvastatin 20 Mg Tab PO 20 mg HS GUILLERMO Administration Bupropion HCl 150 mg 05/17/23 09:00 05/17/23 12:51 Bupropion Xl 150 Mg Tab.Er.24h PO 150 mg DAILY GUILLERMO Administration Furosemide 40 mg 05/17/23 09:00 05/17/23 18:30 Furosemide 40 Mg Tab PO 40 mg BID@0900,1600 GUILLERMO Administration Levocarnitine 330 mg 05/17/23 09:00 05/17/23 18:30 Levocarnitine (With Sugar) 100 Mg/Ml Bottle PO 330 mg DAILY GUILLERMO Administration Montelukast Sodium 10 mg 05/17/23 21:00 05/17/23 21:58 Montelukast 10 Mg Tab PO 10 mg HS GUILLERMO Administration Morphine Sulfate 4 mg 05/16/23 19:03 05/18/23 01:52 Morphine Sulfate 4 Mg/Ml Syringe IV 4 mg Q4HR PRN Administration Severe Pain (Scale 7 to 10) Naloxone HCl 0.2 mg 05/16/23 19:03 Naloxone 0.4 Mg/Ml 1 Ml Vial IV Q2M PRN Opioid Reversal Ondansetron HCl 4 mg 05/16/23 19:03 Ondansetron 4 Mg/2 Ml Vial IVP Q8HR PRN Nausea And Vomiting Sevelamer Carbonate 800 mg 05/16/23 21:55 Sevelamer 800 Mg Tab PO DAILY PRN with snack Intake and Output 05/17/23 05/18/23 05/18/23 22:59 06:59 14:59 Intake Total 400 444 Output Total 2500 0 Balance -2100 444 Intake: Blood Product 444 Ffp 24 Pher Acda Cnt1 218 Unit [id number] Ffp 24 Pher Acda Cnt2 226 Unit [id number] Hemodialysis 400 Output: Urine 100 0 Hemodialysis 2400 Other: Voiding Method Indwelling Catheter # Voids 0 05/17/23 06:30 05/17/23 06:30
[2023-05-18] MEDS ORDERED: MAGNESIUM HYDROXIDE 2,400 MG/30 ML CUP PO PRN (09:44)
[2023-05-18] MEDS ORDERED: HYDROcodone/APAP 5-325MG 1 EACH TAB PO PRN (09:44)
[2023-05-18] MEDS ORDERED: SODIUM CHLORIDE 0.9% 1,000 ML IV ONE (10:25)
[2023-05-18] MEDS ORDERED: ONDANSETRON 4 MG/2 ML VIAL IVP ONE (10:45)
[2023-05-18] MEDS ORDERED: DEXAMETHASONE SOD PHOSPHATE 4 MG/ML 1 ML VIAL IVP ONE (10:45)
[2023-05-18] MEDS ORDERED: fentaNYL (PF) 50 MCG/ML 2 ML AMP ONE (10:59)
[2023-05-18] MEDS ORDERED: LIDOCAINE 2% INJ 20 MG/ML (2 ML VIAL) ONE (10:59)
[2023-05-18] MEDS ORDERED: PROPOFOL 10 MG/ML 20 ML VIAL IV ONE (10:59)
[2023-05-18] MEDS ORDERED: ROCURONIUM 10 MG/ML (5 ML VIAL) IV ONE (10:59)
[2023-05-18] MEDS ORDERED: NEOSTIGMINE 1 MG/ML 10 ML VIAL ONE (10:59)
[2023-05-18] MEDS ORDERED: GLYCOPYRROLATE 0.2 MG/ML 2 ML VIAL ONE (10:59)
--- NOTE | 2023-05-18 12:54 | P.PN ---
Subjective Progress Note Date: 05/18/23 patient is a 78-year-old gentleman with past medical history significant for atrial fibrillation on Coumadin, CHF, end-stage renal disease on dialysis who presented to the ER after sustaining a fall. Patient was working in his front yard trying to fix up flag pole when he lost his balance and fell on his left side. Patient never lost consciousness, denies any feeling of lightheadedness or dizziness prior to this episode. Patient started having severe left-sided hip pain for which he came to the ER. Initial lab work done in the ER showed WBC 7.4 hemoglobin 11, platelet count 207 , INR 2.4, sodium 139, potassium 4.8, BUN 33, creatinine 4.28 X-rays of the left hip and pelvis reveal a minimally displaced intertronchric fracture Patient was admitted to orthopedic service and medicine team were consulted for medical management 05/18. Patient seen and examined. Complaining of left hip pain. Currently undergoing surgery today REVIEW OF SYSTEMS: CONSTITUTIONAL: No fever, no malaise,. CARDIOVASCULAR: No chest pain, no palpitations, no syncope. PULMONARY: No shortness of breath, no cough, GASTROINTESTINAL: No diarrhea, no nausea, no vomiting, no abdominal pain. NEUROLOGICAL: No headaches, no weakness, PHYSICAL EXAMINATION: GENERAL: The patient is alert and oriented x3, not in any acute distress. Well developed, well nourished. HEENT: Pupils are round and equally reacting to light. EOMI. No scleral icterus. No conjunctival pallor. Normocephalic, atraumatic. No pharyngeal erythema. No thyromegaly. CARDIOVASCULAR: S1 and S2 present. No murmurs, rubs, or gallops. PULMONARY: Chest is clear to auscultation, no wheezing or crackles. ABDOMEN: Soft, nontender, nondistended, normoactive bowel sounds. No palpable organomegaly. MUSCULOSKELETAL: Left hip tenderness seen EXTREMITIES: No cyanosis, clubbing, or pedal edema. NEUROLOGICAL: Gross neurological examination did not reveal any focal deficits. SKIN: No rashes. Assessment and plan Left Hip fracture Fall Atrial fibrillation on Coumadin End-stage renal disease on dialysis CHF Monitor vital signs Monitor CBC Monitor CMP Continue telemetry monitoring Continue pain management per orthopedics Hold Coumadin for now Currently nothing by mouth, going for surgery today Follow-up cardiology recommendations follow-up in nephrology recommendations Labs and medication were reviewed.. Continue same treatment. Continue with symptomatic treatment. Resume home medication. Monitor labs and vitals. DVT and GI prophylaxis. Further recommendations as per clinical course of the patient Dictation was produced using [employer] dictation software. please excuse any grammatical, word or spelling errors. Objective - Vital Signs Vital signs: Vital Signs Temp 98.5 F 05/18/23 12:20 Pulse 65 05/18/23 12:35 Resp 15 05/18/23 12:35 BP 165/71 05/18/23 12:35 Pulse Ox 100 05/18/23 12:35 FiO2 Intake & Output 05/17/23 05/18/23 05/18/23 18:59 06:59 18:59 Intake Total 844 200 Output Total 100 2400 20 Balance -100 -1556 180 Intake: IV 200 Blood Product 444 Ffp 24 Pher Acda Cnt1 218 Unit [id number] Ffp 24 Pher Acda Cnt2 226 Unit [id number] Hemodialysis 400 Output: Urine 100 0 Hemodialysis 2400 Estimated Blood Loss 20 Other: Voiding Method Indwelling Catheter Indwelling Catheter # Voids 0 - Labs CBC & Chem 7: 05/17/23 06:30 05/17/23 06:30 Labs: Abnormal Lab Results - Last 24 Hours (Table) 05/17/23 05/17/23 05/17/23 Range/Units 06:30 06:30 15:38 RBC 2.93 L (4.40-5.60) X 10*6/uL Hgb 9.3 L (13.0-17.0) d/dL Hct 29.9 L (39.6-50.0) % MCV 102.0 H (80.0-97.0) FL MCHC 31.1 L (32.0-37.0) d/dL RDW 15.5 H (11.5-14.5) % MPV 9.1 L (9.5-12.2) FL Monocytes # 1.02 H (0.20-1.00) X 10*3/uL PT 31.8 H (9.0-12.0) sec INR 3.3 H (<1.2) Anion Gap 14.60 H (4.00-12.00) mmol/L BUN 34.1 H (9.0-27.0) mg/dL Creatinine 5.2 H (0.6-1.5) mg/dL Est GFR (CKD-EPI) 11 L (>=60) BUN/Creatinine Ratio 6.56 L (12.00-20.00) Ratio Phosphorus 5.9 H (2.4-5.1) mg/dL 05/18/23 05/18/23 Range/Units 06:11 07:59 RBC (4.40-5.60) X 10*6/uL Hgb (13.0-17.0) d/dL Hct (39.6-50.0) % MCV (80.0-97.0) FL MCHC (32.0-37.0) d/dL RDW (11.5-14.5) % MPV (9.5-12.2) FL Monocytes # (0.20-1.00) X 10*3/uL PT 15.4 H 15.6 H (9.0-12.0) sec INR 1.5 H 1.6 H (<1.2) Anion Gap (4.00-12.00) mmol/L BUN (9.0-27.0) mg/dL Creatinine (0.6-1.5) mg/dL Est GFR (CKD-EPI) (>=60) BUN/Creatinine Ratio (12.00-20.00) Ratio Phosphorus (2.4-5.1) mg/dL
[2023-05-18] MEDS ORDERED: HYDROmorphone 0.5 MG/0.5 ML SYRINGE IVP ONE ×2 (13:01→13:10)
--- NOTE | 2023-05-18 13:10 | XR ---
EXAMINATION TYPE: XR Hip Limited LT DATE OF EXAM: 05/18/2023 CLINICAL HISTORY: Postoperative evaluation TECHNIQUE: Single portable view of the left hip was submitted. FINDINGS: Noted are changes of intramedullary florin placement and dynamic compression screw. Alignment is anatomic. Mild degenerative joint space narrowing. IMPRESSION: Satisfactory postoperative alignment
--- NOTE | 2023-05-18 13:11 | XR ---
Fluoroscopy History: IM Nail-Left Hip IM Nail-Left Hip 37sec fluoro time 1.8013 DAP
[2023-05-18] MEDS: buPROPion XL 150 MG TAB.ER.24H PO SCH (14:32)
[2023-05-18] MEDS: FUROSEMIDE 40 MG TAB PO SCH ×2 (14:33→16:19)
[2023-05-18] MEDS: levOCARNitine (WITH SUGAR) 100 MG/ML BOTTLE PO SCH (14:35)
[2023-05-18] MEDS: LACTATED RINGERS 1,000 ML IV SCH (14:36)
[2023-05-18] MEDS ORDERED: WARFARIN 2 MG TAB PO ONE (18:00)
[2023-05-18] MEDS: ATORVASTATIN 20 MG TAB PO SCH (20:37)
[2023-05-18] MEDS: SENNOSIDES-DOCUSATE SODIUM 1 EACH TAB PO SCH (20:37)
[2023-05-18] MEDS: MONTELUKAST 10 MG TAB PO SCH (20:38)
[2023-05-19 07:44] LABS: INR 1.5 (<1.2); Prothrombin Time 15.1 sec (9.0-12.0)
[2023-05-19] MEDS: buPROPion XL 150 MG TAB.ER.24H PO SCH (08:22)
[2023-05-19] MEDS: FUROSEMIDE 40 MG TAB PO SCH ×2 (08:22→17:42)
[2023-05-19] MEDS: levOCARNitine (WITH SUGAR) 100 MG/ML BOTTLE PO SCH (08:22)
[2023-05-19] MEDS: LACTATED RINGERS 1,000 ML IV SCH (08:23)
[2023-05-19] MEDS: HYDROcodone/APAP 5-325MG 1 EACH TAB PO PRN ×2 (08:29→20:28)
[2023-05-19] MEDS ORDERED: traMADol 50 MG TAB PO PRN (10:00)
[2023-05-19] MEDS ORDERED: ACETAMINOPHEN TAB 500 MG TAB PO PRN (10:00)
--- NOTE | 2023-05-19 10:08 | P.PN ---
Subjective Progress Note Date: 05/19/23 Principal diagnosis: Status post left hip IT nail This is a 78 year-old male post left hip IT nail. This is post-op day 1. The patient was evaluated at the bedside today. He is confused this morning and was confused throughout the night per nursing. The patient denies nausea, vomiting, abdominal pain, shortness of breath, and chest pain this morning. He states his pain is controlled at this time. The patient has not been up with physical therapy. Objective - Vital Signs Vital signs: Vital Signs Temp 97.9 F 05/19/23 07:25 Pulse 98 05/19/23 07:25 Resp 17 05/19/23 07:25 BP 152/68 05/19/23 07:25 Pulse Ox 96 05/19/23 07:25 FiO2 Intake & Output 05/18/23 05/19/23 05/19/23 18:59 06:59 18:59 Intake Total 350 Output Total 20 100 Balance 330 -100 Intake: IV 300 Intake, IV Titration 50 Amount ceFAZolin 2 gm In Sodium 50 Chloride 0.9% 50 ml @ 100 mls/hr IVPB Q8H [facility] Rx#: [id number] Output: Urine 100 Estimated Blood Loss 20 Other: Voiding Method Indwelling Catheter Indwelling Catheter - Exam The patient does not appear in acute distress. Alert and orientated x1. Dressings are clean dry and intact. Incision appears fine with no erythema or active drainage. Calf is soft and nontender. Good foot and ankle motion without difficulty. Sensation and circulatory status is intact. - Labs CBC & Chem 7: 05/17/23 06:30 05/17/23 06:30 Labs: Abnormal Lab Results - Last 24 Hours (Table) 05/19/23 Range/Units 05:43 PT 15.1 H (9.0-12.0) sec INR 1.5 H (<1.2) Assessment and Plan (1) Closed left hip fracture Current Visit: Yes Status: Acute Code(s): S72.002A - FRACTURE OF UNSP PART OF NECK OF LEFT FEMUR, INIT SNOMED Code(s): 172156761 (2) Fall Current Visit: Yes Status: Acute Code(s): W19.XXXA - UNSPECIFIED FALL, INIT IAL ENCOUNTER SNOMED Code(s): 4981571 (3) A-fib Current Visit: Yes Status: Acute Code(s): I48.91 - UNSPECIFIED ATRIAL FIBRILLATION SNOMED Code(s): 87190394 (4) End stage renal disease Current Visit: Yes Status: Acute Code(s): N18.6 - END STAGE RENAL DISEASE SNOMED Code(s): 21179847 (5) CHF (congestive heart failure) Current Visit: Yes Status: Acute Code(s): I50.9 - HEART FAILURE, UNSPECIFIED SNOMED Code(s): 89174281 Plan: 1. Continue pain control, ordered Tylenol and Ultram. Avoid Morphine and [place] if we can. 2. Anticoagulation with Coumadin. 3. Start physical therapy and ambulation, weightbearing as tolerated with a walker. 4. Anticipate discharge to [facility] in the next 1-2 days.
[2023-05-19 10:35] LABS: ALT 15 U/L (4-49); AST 25 U/L (17-59); African American GFR (CKD) 10 (>60 ml/min/1.73 sqM); Albumin 3.6 g/dL (3.5-5.0); Albumin/Globulin Ratio 1.2; Alkaline Phosphatase 62 U/L (38-126); Anion Gap 15 mmol/L; Blood Urea Nitrogen 53 mg/dL (9-20); Calcium 9.2 mg/dL (8.4-10.2); Carbon Dioxide 24 mmol/L (22-30); Chloride 94 mmol/L (98-107); Glucose 133 mg/dL (74-99); Non-African American GFR(CKD) 9 (>60 ml/min/1.73 sqM); Potassium 4.6 mmol/L (3.5-5.1); Sodium 133 mmol/L (137-145); Total Bilirubin 0.6 mg/dL (0.2-1.3); Total Protein 6.6 g/dL (6.3-8.2)
[2023-05-19 10:48] LABS: Basophils # (A) 0.01 X 10*3/uL (0.00-0.10); Basophils % (A) 0.1 %; Eosinophils # (A) 0 X 10*3/uL (0.04-0.35); Eosinophils % (A) 0 %; HCT 25.7 % (39.6-50.0); HGB 8.2 d/dL (13.0-17.0); Lymphocytes # (A) 0.56 X 10*3/uL (0.90-5.00); Lymphocytes % (A) 5.9 %; MCH 31.7 pg (27.0-32.0); MCHC 31.9 d/dL (32.0-37.0); MCV 99.2 FL (80.0-97.0); Mean Platelet Volume 9.5 FL (9.5-12.2); Monocytes # (A) 1.08 X 10*3/uL (0.20-1.00); Monocytes % (A) 11.4 %; NRBC Per 100 WBC 0 X 10*3/uL (0.00-0.01); Neutrophils % (A) 82.3 %; Platelet Count 156 X 10*3/uL (140-440); RBC 2.59 X 10*6/uL (4.40-5.60); RDW 14.8 % (11.5-14.5); WBC 9.48 X 10*3/uL (4.50-10.00)
[2023-05-19 10:53] LABS: Basophils % (A) 0 %; Eosinophils % (A) 0 %; HCT 26.8 % (39.0-53.0); Hypochromasia Slight; Lymphocytes # (A) 0.5 k/uL (1.0-4.8); Lymphocytes % (A) 6 %; MCH 32.2 pg (25.0-35.0); MCHC 32.9 g/dL (31.0-37.0); MCV 97.7 fL (80.0-100.0); Macrocytosis Slight; Monocytes # (A) 0.7 k/uL (0-1.0); Monocytes % (A) 7 %; Neutrophils # (A) 8.1 k/uL (1.3-7.7); Neutrophils % (A) 85 %; Platelet Count 161 k/uL (150-450); RBC 2.74 m/uL (4.30-5.90); RDW 15.8 % (11.5-15.5); WBC 9.5 k/uL (3.8-10.6)
[2023-05-19 11:03] LABS: HGB 8.8 gm/dL (13.0-17.5)
--- NOTE | 2023-05-19 11:50 | P.PN ---
Subjective Patient is seen for follow-up for end-stage renal disease. He is maintained on hemodialysis on a Saturday schedule. This morning patient has been confused. Barfield catheter noted with no significant urine output. Objective - Vital Signs Vital signs: Vital Signs Temp 97.9 F 05/19/23 07:25 Pulse 98 05/19/23 07:25 Resp 17 05/19/23 07:25 BP 152/68 05/19/23 07:25 Pulse Ox 96 05/19/23 07:25 FiO2 Intake & Output 05/18/23 05/19/23 05/19/23 18:59 06:59 18:59 Intake Total 350 Output Total 20 100 Balance 330 -100 Intake: IV 300 Intake, IV Titration 50 Amount ceFAZolin 2 gm In Sodium 50 Chloride 0.9% 50 ml @ 100 mls/hr IVPB Q8H [facility] Rx#: [id number] Output: Urine 100 Estimated Blood Loss 20 Other: Voiding Method Indwelling Catheter Indwelling Catheter - Exam Patient is awake, comfortable, no acute distress Examination of the heart S1 and S2 Examination of the lungs bilateral breath sounds are heard Abdomen is soft nontender Examination of lower extremities shows no evidence of edema 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 He is moving all 4 extremities. - Labs CBC & Chem 7: 05/19/23 09:33 05/19/23 09:33 Labs: Abnormal Lab Results - Last 24 Hours (Table) 05/19/23 05/19/23 05/19/23 Range/Units 05:43 05:43 09:33 RBC 2.59 L 2.74 L (4.40-5.60) X 10*6/uL Hgb 8.2 L 8.8 L D (13.0-17.0) d/dL Hct 25.7 L 26.8 L (39.6-50.0) % MCV 99.2 H (80.0-97.0) FL MCHC 31.9 L (32.0-37.0) d/dL RDW 14.8 H 15.8 H (11.5-14.5) % Neutrophils # 7.80 H 8.1 H (1.80-7.70) X 10*3/uL Lymphocytes # 0.56 L 0.5 L (0.90-5.00) X 10*3/uL Monocytes # 1.08 H (0.20-1.00) X 10*3/uL Eosinophils # 0 L (0.04-0.35) X 10*3/uL PT 15.1 H (9.0-12.0) sec INR 1.5 H (<1.2) Sodium (137-145) mmol/L Chloride (98-107) mmol/L BUN (9-20) mg/dL Creatinine (0.66-1.25) mg/dL Glucose (74-99) mg/dL 05/19/23 Range/Units 09:33 RBC (4.40-5.60) X 10*6/uL Hgb (13.0-17.0) d/dL Hct (39.6-50.0) % MCV (80.0-97.0) FL MCHC (32.0-37.0) d/dL RDW (11.5-14.5) % Neutrophils # (1.80-7.70) X 10*3/uL Lymphocytes # (0.90-5.00) X 10*3/uL Monocytes # (0.20-1.00) X 10*3/uL Eosinophils # (0.04-0.35) X 10*3/uL PT (9.0-12.0) sec INR (<1.2) Sodium 133 L (137-145) mmol/L Chloride 94 L (98-107) mmol/L BUN 53 H (9-20) mg/dL Creatinine 5.73 H (0.66-1.25) mg/dL Glucose 133 H (74-99) mg/dL Assessment and Plan Assessment: 1. End-stage renal disease maintained on hemodialysis on Saturday schedule. 2. Chronic systolic CHF with ejection fraction of 50% with moderate to severe mitral and tricuspid regurgitation. 3. Status post fall for left hip fracture. 4. Chronic disease mineral bone disease maintained on Renvela. Plan: Hemodialysis in a.m. DC Barfield catheter
--- NOTE | 2023-05-19 12:53 | P.PN ---
Subjective Progress Note Date: 05/19/23 This is Justyn Capnoe NP, I'm dictating on behalf of Dr. Zhou's H&P and A&P. Patient was interviewed and examined. Patient is a pleasant 78-year-old male who was admitted for hip fracture post fall. Patient had not had a syncopal episode, but a mechanical fall. Today patient is confused. He is not complaining of any chest pain, heart palpitations, or shortness of breath at this time. Patient had successful repair of his left hip fracture yesterday. GENERAL: Well-appearing, well-nourished and in no acute distress. NECK: Supple without JVD or thyromegaly. LUNGS: Breath sounds clear to auscultation bilaterally. Respiration equal and unlabored. No wheezes, rales or rhonchi. HEART: Regular rate and rhythm without murmurs, rubs or gallops. S1 and S2 heard. EXTREMITIES: Normal range of motion, no edema. No clubbing or cyanosis. Peripheral pulses intact and strong. VITALS: Temp 97.9, pulse 98, respirations 17, blood pressure 152/68, O2 saturation 96% on 3 L TELEMETRY: Ventricular paced rhythm LABS: White count 9.5, hemoglobin 8.8, platelets 161, sodium 133, potassium 4.6, B1 53, creatinine 5.73, calcium 9.2 IMPRESSION: 1. Intertrochanteric fracture, status post repair 2. Permanent atrial fibrillation, with ventricular paced rhythm 3. Status post pacemaker implant in the past with likely complete heart block 4. End-stage renal disease 5. History of CAD PLAN: Continue current medications as prescribed. Patient is confused today postoperatively. Further recommendations based on patient's clinical course. Objective - Vital Signs Vital signs: Vital Signs Temp 97.9 F 05/19/23 07:25 Pulse 98 05/19/23 07:25 Resp 17 05/19/23 07:25 BP 152/68 05/19/23 07:25 Pulse Ox 96 05/19/23 07:25 FiO2 Intake & Output 05/18/23 05/19/23 05/19/23 18:59 06:59 18:59 Intake Total 350 Output Total 20 100 100 Balance 330 -100 -100 Intake: IV 300 Intake, IV Titration 50 Amount ceFAZolin 2 gm In Sodium 50 Chloride 0.9% 50 ml @ 100 mls/hr IVPB Q8H [facility] Rx#: [id number] Output: Urine 100 100 Estimated Blood Loss 20 Other: Voiding Method Indwelling Catheter Indwelling Catheter Indwelling Catheter - Labs CBC & Chem 7: 05/19/23 09:33 05/19/23 09:33 Labs: Abnormal Lab Results - Last 24 Hours (Table) 05/19/23 05/19/23 05/19/23 Range/Units 05:43 05:43 09:33 RBC 2.59 L 2.74 L (4.40-5.60) X 10*6/uL Hgb 8.2 L 8.8 L D (13.0-17.0) d/dL Hct 25.7 L 26.8 L (39.6-50.0) % MCV 99.2 H (80.0-97.0) FL MCHC 31.9 L (32.0-37.0) d/dL RDW 14.8 H 15.8 H (11.5-14.5) % Neutrophils # 7.80 H 8.1 H (1.80-7.70) X 10*3/uL Lymphocytes # 0.56 L 0.5 L (0.90-5.00) X 10*3/uL Monocytes # 1.08 H (0.20-1.00) X 10*3/uL Eosinophils # 0 L (0.04-0.35) X 10*3/uL PT 15.1 H (9.0-12.0) sec INR 1.5 H (<1.2) Sodium (137-145) mmol/L Chloride (98-107) mmol/L BUN (9-20) mg/dL Creatinine (0.66-1.25) mg/dL Glucose (74-99) mg/dL 05/19/23 Range/Units 09:33 RBC (4.40-5.60) X 10*6/uL Hgb (13.0-17.0) d/dL Hct (39.6-50.0) % MCV (80.0-97.0) FL MCHC (32.0-37.0) d/dL RDW (11.5-14.5) % Neutrophils # (1.80-7.70) X 10*3/uL Lymphocytes # (0.90-5.00) X 10*3/uL Monocytes # (0.20-1.00) X 10*3/uL Eosinophils # (0.04-0.35) X 10*3/uL PT (9.0-12.0) sec INR (<1.2) Sodium 133 L (137-145) mmol/L Chloride 94 L (98-107) mmol/L BUN 53 H (9-20) mg/dL Creatinine 5.73 H (0.66-1.25) mg/dL Glucose 133 H (74-99) mg/dL
--- NOTE | 2023-05-19 12:55 | P.PN ---
Subjective Progress Note Date: 05/19/23 patient is a 78-year-old gentleman with past medical history significant for atrial fibrillation on Coumadin, CHF, end-stage renal disease on dialysis who presented to the ER after sustaining a fall. Patient was working in his front yard trying to fix up flag pole when he lost his balance and fell on his left side. Patient never lost consciousness, denies any feeling of lightheadedness or dizziness prior to this episode. Patient started having severe left-sided hip pain for which he came to the ER. Initial lab work done in the ER showed WBC 7.4 hemoglobin 11, platelet count 207 , INR 2.4, sodium 139, potassium 4.8, BUN 33, creatinine 4.28 X-rays of the left hip and pelvis reveal a minimally displaced intertronchric fracture Patient was admitted to orthopedic service and medicine team were consulted for medical management 05/18. Patient seen and examined. Complaining of left hip pain. Currently undergoing surgery today 05/19. Patient seen and examined. Coumadin resumed. Patient is confused this morning, able to tell me his name and date of , gets confused about the surroundings REVIEW OF SYSTEMS: CONSTITUTIONAL: No fever, no malaise,. CARDIOVASCULAR: No chest pain, no palpitations, no syncope. PULMONARY: No shortness of breath, no cough, GASTROINTESTINAL: No diarrhea, no nausea, no vomiting, no abdominal pain. NEUROLOGICAL: No headaches, no weakness, PHYSICAL EXAMINATION: GENERAL: The patient is alert and oriented x1-2, not in any acute distress. Well developed, well nourished. HEENT: Pupils are round and equally reacting to light. EOMI. No scleral icterus. No conjunctival pallor. Normocephalic, atraumatic. No pharyngeal erythema. No thyromegaly. CARDIOVASCULAR: S1 and S2 present. No murmurs, rubs, or gallops. PULMONARY: Chest is clear to auscultation, no wheezing or crackles. ABDOMEN: Soft, nontender, nondistended, normoactive bowel sounds. No palpable organomegaly. MUSCULOSKELETAL: Left hip surgical incision seen EXTREMITIES: No cyanosis, clubbing, or pedal edema. NEUROLOGICAL: Gross neurological examination did not reveal any focal deficits. SKIN: No rashes. Assessment and plan Left Hip fracture Acute delirium Fall Atrial fibrillation on Coumadin End-stage renal disease on dialysis CHF Monitor vital signs Monitor CBC Monitor CMP Continue telemetry monitoring Status post left hip IT nail Continue pain management per orthopedics Continue pharmacy dose Coumadin Orthopedic following, Follow-up cardiology recommendations follow-up in nephrology recommendations PT and OT evaluation Labs and medication were reviewed.. Continue same treatment. Continue with symptomatic treatment. Resume home medication. Monitor labs and vitals. DVT and GI prophylaxis. Further recommendations as per clinical course of the patient Dictation was produced using app2you dictation software. please excuse any grammatical, word or spelling errors. Objective - Vital Signs Vital signs: Vital Signs Temp 97.9 F 05/19/23 07:25 Pulse 98 05/19/23 07:25 Resp 17 05/19/23 07:25 BP 152/68 05/19/23 07:25 Pulse Ox 96 05/19/23 07:25 FiO2 Intake & Output 05/18/23 05/19/23 05/19/23 18:59 06:59 18:59 Intake Total 350 Output Total 20 100 Balance 330 -100 Intake: IV 300 Intake, IV Titration 50 Amount ceFAZolin 2 gm In Sodium 50 Chloride 0.9% 50 ml @ 100 mls/hr IVPB Q8H [facility] Rx#: [id number] Output: Urine 100 Estimated Blood Loss 20 Other: Voiding Method Indwelling Catheter Indwelling Catheter - Labs CBC & Chem 7: 05/19/23 09:33 05/19/23 09:33 Labs: Abnormal Lab Results - Last 24 Hours (Table) 05/19/23 Range/Units 05:43 PT 15.1 H (9.0-12.0) sec INR 1.5 H (<1.2)
[2023-05-19] MEDS ORDERED: DARBEPOETIN ALFA 60 MCG/0.3 ML SYRINGE SQ SCH (13:00)
--- NOTE | 2023-05-19 17:50 | FL ---
Intraoperative/procedural fluoroscopic services were provided. Total fluoroscopy time is 37 seconds w ith a total of 4 submitted images to PACS. Please see the operative/procedural note for further detai ls. DAP: 1.8013 mGym2
[2023-05-19] MEDS ORDERED: WARFARIN 3 MG TAB PO ONE (18:00)
[2023-05-19] MEDS: MONTELUKAST 10 MG TAB PO SCH (20:28)
[2023-05-19] MEDS: ATORVASTATIN 20 MG TAB PO SCH (20:28)
[2023-05-19] MEDS: SENNOSIDES-DOCUSATE SODIUM 1 EACH TAB PO SCH (20:28)
[2023-05-20] MEDS: levOCARNitine (WITH SUGAR) 100 MG/ML BOTTLE PO SCH (09:32)
[2023-05-20] MEDS: buPROPion XL 150 MG TAB.ER.24H PO SCH (09:32)
[2023-05-20] MEDS: FUROSEMIDE 40 MG TAB PO SCH ×2 (09:33→20:49)
--- NOTE | 2023-05-20 10:24 | P.PN ---
Subjective HISTORY OF PRESENT ILLNESS: This is a 78-year-old male who follows in the office with Dr. Ma. Patient is status post surgical intervention for left hip fracture secondary to a mechanical fall. Patient examined this morning at the bedside. Patient denies chest pain or pressure. He denies shortness of breath. Patient's blood pressure this morning 181/78. However previous blood pressures are documented with a systolic between [id number]. PHYSICAL EXAM: VITAL SIGNS: Reviewed. GENERAL: Well-developed in no acute distress. NECK: Supple. No JVD or thyromegaly LUNGS: Respirations even and unlabored. Lungs essentially clear to auscultation bilaterally. HEART: Regular rate and rhythm. S1 and S2 heard. Systolic murmur noted EXTREMITIES: Normal range of motion. No clubbing or cyanosis. Peripheral pulses intact. No lower extremity edema ASSESSMENT: Left hip fracture, status post repair Permanent atrial fibrillation with ventricular paced rhythm History of pacemaker implantation End-stage renal disease on hemodialysis Coronary artery disease, status post cardiac catheterization January 2023 Valvular heart disease including moderate to severe mitral regurgitation and mild aortic stenosis, status post HARISH January 2023 PLAN: Continue current cardiac medications Continue Coumadin. Monitor INR. Patient had an isolated episode of high blood pressure this morning however previous documented blood pressures are ranging between 130 and 140. Repeat blood pressure 147/61. No need to add antihypertensive medications Patient undergo hemodialysis today Patient is stable from a cardiac standpoint Nurse practitioner note has been reviewed by physician. Signing provider agrees with the documented findings, assessment, and plan of care. Objective - Vital Signs Vital signs: Vital Signs Temp 98.2 F 05/20/23 08:00 Pulse 79 05/20/23 08:00 Resp 22 05/20/23 08:00 BP 181/71 05/20/23 08:00 Pulse Ox 96 05/20/23 08:44 FiO2 Intake & Output 05/19/23 05/20/23 05/20/23 18:59 06:59 18:59 Output Total 100 Balance -100 Output: Urine 100 Other: Voiding Method Indwelling Catheter Diaper Diaper # Voids 0 # Bowel Movements 0 - Labs CBC & Chem 7: 05/19/23 09:33 05/19/23 09:33 Labs: Abnormal Lab Results - Last 24 Hours (Table) 05/19/23 05/19/23 05/19/23 Range/Units 05:43 09:33 09:33 RBC 2.59 L 2.74 L (4.40-5.60) X 10*6/uL Hgb 8.2 L 8.8 L D (13.0-17.0) d/dL Hct 25.7 L 26.8 L (39.6-50.0) % MCV 99.2 H (80.0-97.0) FL MCHC 31.9 L (32.0-37.0) d/dL RDW 14.8 H 15.8 H (11.5-14.5) % Neutrophils # 7.80 H 8.1 H (1.80-7.70) X 10*3/uL Lymphocytes # 0.56 L 0.5 L (0.90-5.00) X 10*3/uL Monocytes # 1.08 H (0.20-1.00) X 10*3/uL Eosinophils # 0 L (0.04-0.35) X 10*3/uL Sodium 133 L (137-145) mmol/L Chloride 94 L (98-107) mmol/L BUN 53 H (9-20) mg/dL Creatinine 5.73 H (0.66-1.25) mg/dL Glucose 133 H (74-99) mg/dL
[2023-05-20] MEDS: polyethylene glycoL 3350 17 GM POWD.PACK PO SCH (11:01)
--- NOTE | 2023-05-20 12:37 | P.PN ---
Subjective Patient is seen for follow-up for end-stage renal disease. He is maintained on hemodialysis on a Saturday schedule. Mentation much improved today Scheduled for hemodialysis today. Objective - Vital Signs Vital signs: Vital Signs Temp 98.2 F 05/20/23 08:00 Pulse 67 05/20/23 10:23 Resp 22 05/20/23 08:00 BP 147/61 05/20/23 10:23 Pulse Ox 96 05/20/23 08:44 FiO2 Intake & Output 05/19/23 05/20/23 05/20/23 18:59 06:59 18:59 Output Total 100 Balance -100 Output: Urine 100 Other: Voiding Method Indwelling Catheter Diaper Diaper # Voids 0 # Bowel Movements 0 - Exam Patient is awake, comfortable, no acute distress Examination of the heart S1 and S2 Examination of the lungs bilateral breath sounds are heard Abdomen is soft nontender Examination of lower extremities shows no evidence of edema 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 Answers questions appropriately. Not confused. - Labs CBC & Chem 7: 05/19/23 09:33 05/19/23 09:33 Assessment and Plan Assessment: 1. End-stage renal disease maintained on hemodialysis on Saturday schedule. 2. Chronic systolic CHF with ejection fraction of 50% with moderate to severe mitral and tricuspid regurgitation. 3. Status post fall and subsequent left hip fracture. 4. Chronic disease mineral bone disease maintained on Renvela. Plan: Hemodialysis today Continue to encourage increased oral intake
--- NOTE | 2023-05-20 12:55 | P.PN ---
Subjective Progress Note Date: 05/20/23 Principal diagnosis: Status post left hip IT nail This is a 78 year-old male post left hip IT nail. This is post-op day 2. The patient was evaluated in the recliner chair at the bedside today. The patient denies nausea, vomiting, abdominal pain, shortness of breath, and chest pain this morning. He states his pain is controlled at this time. The patient has been up with physical therapy. He will receive hemodialysis today. Objective - Vital Signs Vital signs: Vital Signs Temp 98.2 F 05/20/23 08:00 Pulse 67 05/20/23 10:23 Resp 22 05/20/23 08:00 BP 147/61 05/20/23 10:23 Pulse Ox 96 05/20/23 08:44 FiO2 Intake & Output 05/19/23 05/20/23 05/20/23 18:59 06:59 18:59 Output Total 100 Balance -100 Output: Urine 100 Other: Voiding Method Indwelling Catheter Diaper Diaper # Voids 0 # Bowel Movements 0 - Exam The patient does not appear in acute distress. Alert and orientated x3. Dressings are clean dry and intact. Incision appears fine with no erythema or active drainage. Calf is soft and nontender. Good foot and ankle motion without difficulty. Sensation and circulatory status is intact. - Labs CBC & Chem 7: 05/19/23 09:33 05/19/23 09:33 Assessment and Plan (1) Closed left hip fracture Current Visit: Yes Status: Acute Code(s): S72.002A - FRACTURE OF UNSP PART OF NECK OF LEFT FEMUR, INIT SNOMED Code(s): 254208973 (2) Fall Current Visit: Yes Status: Acute Code(s): W19.XXXA - UNSPECIFIED FALL, INITIAL ENCOUNTER SNOMED Code(s): 3292377 (3) A-fib Current Visit: Yes Status: Acute Code(s): I48.91 - UNSPECIFIED ATRIAL FIBRILLATION SNOMED Code(s): 89416610 (4) End stage renal disease Current Visit: Yes Status: Acute Code(s): N18.6 - END STAGE RENAL DISEASE SNOMED Code(s): 50053460 (5) CHF (congestive heart failure) Current Visit: Yes Status: Acute Code(s): I50.9 - HEART FAILURE, UNSPECIFIED SNOMED Code(s): 51584844 Plan: 1. Continue pain control 2. Anticoagulation with Coumadin. 3. Continue physical therapy and ambulation, weightbearing as tolerated with a walker. 4. Anticipate discharge to [facility] today or tomorrow.
--- NOTE | 2023-05-20 14:11 | P.PN ---
Subjective Progress Note Date: 05/20/23 (78-year-old gentleman status post left hip fracture surgical repair. Sitting up in chair. Reports positive pain at the surgical site. Scheduled for hemodialysis today. Passing flatus, unsure of last bowel movement. Denies nausea, vomiting or diarrhea. PT pending. Denies lightheadedness, dizziness or focal deficits. Isolated event of hypertension, this morning, resolved. Denies chest pain, palpitations or shortness of breath. Afebrile. Maintaining O2 sats in the high 90s to 100% on 2 L nasal cannula. Objective - Vital Signs Vital signs: Vital Signs Temp 98.1 F 05/20/23 13:50 Pulse 67 05/20/23 13:50 Resp 17 05/20/23 13:50 BP 137/70 05/20/23 13:50 Pulse Ox 100 05/20/23 13:50 FiO2 Intake & Output 05/19/23 05/20/23 05/20/23 18:59 06:59 18:59 Output Total 100 Balance -100 Output: Urine 100 Other: Voiding Method Indwelling Catheter Diaper Diaper # Voids 0 # Bowel Movements 0 - Exam PHYSICAL EXAM: VITAL SIGNS: As above GENERAL: Alert and oriented 3, sitting up in chair, conversing appropriately HEENT: Normocephalic, Conjunctivae normal. eyes normal. NECK: Supple, No JVD. No thyroid enlargement. No LNs CARDIOVASCULAR: S1, S2 regular.. Systolic murmur RESPIRATION: Unlabored, equal air entry, bilateral sounds clear with bilateral bases diminished. ABDOMEN: Soft, nontender . No guarding. no masses palpable. No ascites, No hepatosplenomegaly.Bowel sounds heard. EXTREMITIES: Left lower extremity dressing clean dry and intact, no calf tenderness, positive DP pulse. PSYCHIATRY: Alert and oriented X3, mood and affect normal. NERVOUS SYSTEM: Cranial N 2-12 grossly normal. No focal deficits. Strength and sensation grossly intact. Skin: Warm and dry, no rash - Labs CBC & Chem 7: 05/19/23 09:33 05/19/23 09:33 Assessment and Plan Assessment: Left hip, status post surgical repair Chronic atrial fibrillation History of pacemaker implantation, ventricular paced CAD status post cardiac catheterization 01/27 Multivalvular heart disease including mild aortic stenosis Chronic systolic CHF End-stage renal disease on hemodialysis Plan: Continue on current medication regime ,monitoring and symptomatic treatment. MiraLAX ordered for constipation. Hemodialysis as per nephrology. Anticoagulated on Coumadin. PPI for GI prophylaxis. Pain management as per primary. Aggressive pulmonary toileting with incentive spirometer reinforced. PT pending. Discharge planning in progress for [facility] subacute rehab. as per orthopedic surgery. The impression and plan of care has been dictated as directed. : I performed a history and examination of this patient, discussed the same with the dictator. I agree with the dictator's note ,documented as a scribe. Any additional findings or plans will be noted.
[2023-05-20] MEDS ORDERED: PANTOPRAZOLE 40 MG/10 ML VIAL IVP SCH ×2 (14:15→21:00)
[2023-05-20 15:39] LABS: INR 2.4 (<1.2); Prothrombin Time 23.9 sec (9.0-12.0)
[2023-05-20] MEDS ORDERED: WARFARIN 0.5 MG TAB PO ONE (18:30)
[2023-05-20] MEDS: SENNOSIDES-DOCUSATE SODIUM 1 EACH TAB PO SCH (20:49)
[2023-05-20] MEDS: ATORVASTATIN 20 MG TAB PO SCH (20:49)
[2023-05-20] MEDS: MONTELUKAST 10 MG TAB PO SCH (20:49)
[2023-05-21 05:38] LABS: Prothrombin Time 28.8 sec (9.0-12.0)
[2023-05-21] MEDS: levOCARNitine (WITH SUGAR) 100 MG/ML BOTTLE PO SCH (08:48)
[2023-05-21] MEDS: polyethylene glycoL 3350 17 GM POWD.PACK PO SCH (08:48)
[2023-05-21] MEDS: FUROSEMIDE 40 MG TAB PO SCH (08:48)
[2023-05-21] MEDS: buPROPion XL 150 MG TAB.ER.24H PO SCH (08:48)
--- NOTE | 2023-05-21 08:53 | P.PN ---
Subjective Progress Note Date: 05/21/23 Pt evaluated today, upright in bed, continues to endorse L sided hip pain and weakness. He is s/p HD yesterday and tolerated well. He notes minimal urine output which is his baseline. SpO2 99% on 3 LPM O2. He denies fever, chills, shortness of breath. INR reviewed today at 3.0. Objective - Vital Signs Vital signs: Vital Signs Temp 99.3 F 05/21/23 00:54 Pulse 69 05/21/23 00:54 Resp 16 05/21/23 00:54 BP 140/64 05/21/23 00:54 Pulse Ox 100 05/21/23 00:54 FiO2 Intake & Output 05/20/23 05/21/23 05/21/23 18:59 06:59 18:59 Intake Total 500 Output Total 1500 Balance -1000 Intake: Hemodialysis 500 Output: Hemodialysis 1500 Other: Voiding Method Diaper # Voids 1 0 # Bowel Movements 0 - Exam Gen: elderly male in NAD CV: Irregular, no murmur Lungs: CTAB - Labs CBC & Chem 7: 05/19/23 09:33 05/19/23 09:33 Labs: Abnormal Lab Results - Last 24 Hours (Table) 05/20/23 05/21/23 Range/Units 14:30 04:38 PT 23.9 H 28.8 H (9.0-12.0) sec INR 2.4 H 3.0 H (<1.2) Assessment and Plan Plan: Continue with current medical regimen, continue coumadin at same dose and HD per his regular schedule. Continue miralax. Pt medically stable for discharge to [facility]
[2023-05-21 09:00] VITALS: BP 123/55; PULSE 78; RESP 18; TEMP 98.2
[2023-05-21 09:23] LABS: Basophils # (A) 0.01 X 10*3/uL (0.00-0.10); Basophils % (A) 0.1 %; Eosinophils # (A) 0.15 X 10*3/uL (0.04-0.35); Eosinophils % (A) 2.2 %; HCT 23.6 % (39.6-50.0); HGB 7.8 d/dL (13.0-17.0); Lymphocytes # (A) 0.63 X 10*3/uL (0.90-5.00); Lymphocytes % (A) 9.1 %; MCH 31.7 pg (27.0-32.0); MCHC 33.1 d/dL (32.0-37.0); MCV 95.9 FL (80.0-97.0); Mean Platelet Volume 9.4 FL (9.5-12.2); Monocytes % (A) 14.5 %; NRBC Per 100 WBC 0 X 10*3/uL (0.00-0.01); Neutrophils % (A) 73.8 %; Platelet Count 181 X 10*3/uL (140-440); RBC 2.46 X 10*6/uL (4.40-5.60); RDW 14.7 % (11.5-14.5); WBC 6.91 X 10*3/uL (4.50-10.00)
--- NOTE | 2023-05-21 10:10 | P.DS ---
Providers Date of admission: 05/16/23 19:05 Expected date of discharge: 05/21/23 Attending physician: Kimi Tsang DO Consults: 05/16/23 19:03 Consult Physician Routine Consulting Provider: Alvaro Foster Consult Reason/Comments: [employer] Do you want consulting provider notified?: Yes 05/16/23 23:55 Consult Physician Routine Consulting Provider: Torsten Suero Consult Reason/Comments: Hemodialysis Patient Do you want consulting provider notified?: Yes, Notify in am 05/17/23 11:43 Consult Physician Routine Consulting Provider: Quinten Waldron Consult Reason/Comments: cardiac clearance for surgery on 05/18/23 Do you want consulting provider notified?: Yes Primary care physician: Alvaro Foster MD - Discharge Diagnosis(es) (1) Closed left hip fracture Current Visit: Yes Status: Acute (2) Fall Current Visit: Yes Status: Acute (3) A-fib Current Visit: Yes Status: Acute (4) End stage renal disease Current Visit: Yes Status: Acute (5) CHF (congestive heart failure) Current Visit: Yes Status: Acute Hospital Course: This is a 78 -year-old male who presented to the hospital after sustaining a fall at home. A left intertrochanteric fracture was found. After discussion and consideration the patient elects to proceed with IT nail of the left hip. The patient was seen preoperatively by internal medicine, nephrology, and cardiology and cleared for surgery. The patient was admitted to [facility] for a left IT nail on 05/18/[address] Tsang. The procedure was performed without complication or sequelae. The patient is doing well postoperatively. Labs and vital signs are stable the day of discharge. On the day of discharge the patient's hip incisions are healing well. There is minimal erythema. There is no drainage noted at this time. There is minimal soft tissue swelling to the hip and thigh. The patient has full foot and ankle motion without difficulty or pain. Neurovascular status to the left lower extremity is intact. The patient will be discharged home to skilled rehab in stable condition. Pertinent Studies: Laboratory Tests 05/21/23 05/21/23 04:38 04:38 WBC 6.91 RBC 2.46 L Hgb 7.8 L PT 28.8 H INR 3.0 H Patient Condition at Discharge: Stable Plan - Discharge Summary Discharge Rx Participant: No New Discharge Prescriptions: New Sennosides-Docusate Sodium [Senokot-S] 2 tab PO DAILY #30 tablet HYDROcodone/APAP 5-325MG [Aristes 5] 1 each PO Q6HR PRN #30 tab PRN Reason: Pain No Action Dialyvite 1 tab PO DAILY Lidocaine-Prilocaine Cream [Emla Cream 2.5%/2.5%] 1 applic TOPICAL DAILY PRN PRN Reason: avf access Sevelamer Carbonate 1,600 mg PO TID-W/MEALS levOCARNitine [Levocarnitine] 330 mg PO DAILY Furosemide [Lasix] 40 mg PO BID Sevelamer [Renvela] 800 mg PO DAILY PRN PRN Reason: with snack Montelukast [Singulair] 10 mg PO HS Atorvastatin [Lipitor] 20 mg PO HS Sildenafil [Revatio] 20 mg PO HS Aspirin EC [Ecotrin Low Dose] 81 mg PO DAILY Warfarin [Coumadin] 2.5 mg PO HS Albuterol Inhaler [Ventolin Hfa Inhaler] 1 - 2 puff INHALATION RT-Q6H PRN PRN Reason: Shortness Of Breath Diclofenac Sodium Gel [Voltaren Gel] 1 applic TOPICAL QID PRN PRN Reason: Pain buPROPion HCL [Wellbutrin XL] 150 mg PO DAILY Discharge Medication List Aspirin EC [Ecotrin Low Dose] 81 mg PO DAILY 08/04/21 [History] Dialyvite 1 tab PO DAILY 08/04/21 [History] Lidocaine-Prilocaine Cream [Emla Cream 2.5%/2.5%] 1 applic TOPICAL DAILY PRN 12/15/21 [History] Sevelamer Carbonate 1,600 mg PO TID-W/MEALS 08/28/22 [History] levOCARNitine [Levocarnitine] 330 mg PO DAILY 01/15/23 [History] Albuterol Inhaler [Ventolin Hfa Inhaler] 1 - 2 puff INHALATION RT-Q6H PRN 05/16/23 [History] Atorvastatin [Lipitor] 20 mg PO HS 05/16/23 [History] Diclofenac Sodium Gel [Voltaren Gel] 1 applic TOPICAL QID PRN 05/16/23 [History] Furosemide [Lasix] 40 mg PO BID 05/16/23 [History] Montelukast [Singulair] 10 mg PO HS 05/16/23 [History] Sevelamer [Renvela] 800 mg PO DAILY PRN 05/16/23 [History] Sildenafil [Revatio] 20 mg PO HS 05/16/23 [History] Warfarin [Coumadin] 2.5 mg PO HS 05/16/23 [History] buPROPion HCL [Wellbutrin XL] 150 mg PO DAILY 05/16/23 [History] Sennosides-Docusate Sodium [Senokot-S] 2 tab PO DAILY #30 tablet 05/19/23 [Rx] HYDROcodone/APAP 5-325MG [Aristes 5] 1 each PO Q6HR PRN #30 tab 05/20/23 [Rx] Follow up Appointment(s)/Referral(s): Alvaro Foster MD [Primary Care Provider] - 1-2 days Kimi Tsang DO [Doctor of Osteopathic Medicine] - 06/19/23 9:15 am Activity/Diet/Wound Care/Special Instructions: Keep dressings in place for 7 days unless saturated. After 7 days, remove dressing and apply dry 4x4s and paper tape. PT - WBAT with walker and assistance. Use pain medication as directed. Follow up outpatient with Dr. Tsang in 4 weeks -- call for appointment. Call [facility] with questions or concerns. Discharge Disposition: TRANSFER TO SNF/ECF
--- NOTE | 2023-05-21 10:59 | P.PN ---
Subjective HISTORY OF PRESENT ILLNESS: This is a 78-year-old male who follows in the office with Dr. Ma. Patient is status post surgical intervention for left hip fracture secondary to a mechanical fall. Patient examined this morning at the bedside. Patient denies chest pain or pressure. He denies shortness of breath. Patient's blood pressure this morning 181/78. However previous blood pressures are documented with a systolic between [id number]. 05/21/2023 Patient examined this morning at the bedside. Patient appears somewhat confused. He denies chest pain or pressure. He denies shortness of breath. Denies dizziness or lightheadedness. He states his pain is controlled at this time. Vital signs are stable. PHYSICAL EXAM: VITAL SIGNS: Reviewed. GENERAL: Well-developed in no acute distress. NECK: Supple. No JVD or thyromegaly LUNGS: Respirations even and unlabored. Lungs essentially clear to auscultation bilaterally. HEART: Regular rate and rhythm. S1 and S2 heard. Systolic murmur noted EXTREMITIES: Normal range of motion. No clubbing or cyanosis. Peripheral pulses intact. No lower extremity edema ASSESSMENT: Left hip fracture, status post repair Permanent atrial fibrillation with ventricular paced rhythm History of pacemaker implantation End-stage renal disease on hemodialysis Coronary artery disease, status post cardiac catheterization January 2023 Valvular heart disease including moderate to severe mitral regurgitation and mild aortic stenosis, status post HARISH January 2023 PLAN: Continue current cardiac medications Continue Coumadin. Monitor INR. Patient is stable from a cardiac standpoint Patient to follow post discharge with Dr. Ma Nurse practitioner note has been reviewed by physician. Signing provider agrees with the documented findings, assessment, and plan of care. Objective - Vital Signs Vital signs: Vital Signs Temp 98.2 F 05/21/23 07:25 Pulse 78 05/21/23 07:25 Resp 18 05/21/23 07:25 BP 123/55 05/21/23 07:25 Pulse Ox 95 05/21/23 07:25 FiO2 Intake & Output 05/20/23 05/21/23 05/21/23 18:59 06:59 18:59 Intake Total 500 Output Total 1500 Balance -1000 Intake: Hemodialysis 500 Output: Hemodialysis 1500 Other: Voiding Method Diaper # Voids 1 0 # Bowel Movements 0 - Labs CBC & Chem 7: 05/21/23 04:38 05/19/23 09:33 Labs: Abnormal Lab Results - Last 24 Hours (Table) 05/20/23 05/21/23 05/21/23 Range/Units 14:30 04:38 04:38 RBC 2.46 L (4.40-5.60) X 10*6/uL Hgb 7.8 L (13.0-17.0) d/dL Hct 23.6 L (39.6-50.0) % RDW 14.7 H (11.5-14.5) % MPV 9.4 L (9.5-12.2) FL Lymphocytes # 0.63 L (0.90-5.00) X 10*3/uL PT 23.9 H 28.8 H (9.0-12.0) sec INR 2.4 H 3.0 H (<1.2)
--- NOTE | 2023-05-21 13:14 | P.PN ---
Subjective Patient is seen for follow-up for end-stage renal disease. He is maintained on hemodialysis on a Saturday schedule. Mentation is at baseline Tolerated dialysis well yesterday with UF of 1.5 L. Objective - Vital Signs Vital signs: Vital Signs Temp 98.2 F 05/21/23 07:25 Pulse 78 05/21/23 07:25 Resp 18 05/21/23 07:25 BP 123/55 05/21/23 07:25 Pulse Ox 95 05/21/23 07:25 FiO2 Intake & Output 05/20/23 05/21/23 05/21/23 18:59 06:59 18:59 Intake Total 500 Output Total 1500 Balance -1000 Intake: Hemodialysis 500 Output: Hemodialysis 1500 Other: Voiding Method Diaper # Voids 1 0 # Bowel Movements 0 - Exam Patient is awake, comfortable, no acute distress Patient is euvolemic Examination of lower extremities shows no evidence of edema [employer] exam shows He is moving all 4 extremities. Grossly intact - Labs CBC & Chem 7: 05/21/23 04:38 05/19/23 09:33 Labs: Abnormal Lab Results - Last 24 Hours (Table) 05/20/23 05/21/23 05/21/23 Range/Units 14:30 04:38 04:38 RBC 2.46 L (4.40-5.60) X 10*6/uL Hgb 7.8 L (13.0-17.0) d/dL Hct 23.6 L (39.6-50.0) % RDW 14.7 H (11.5-14.5) % MPV 9.4 L (9.5-12.2) FL Lymphocytes # 0.63 L (0.90-5.00) X 10*3/uL PT 23.9 H 28.8 H (9.0-12.0) sec INR 2.4 H 3.0 H (<1.2) Assessment and Plan Assessment: 1. End-stage renal disease maintained on hemodialysis on Saturday schedule. 2. Chronic systolic CHF with ejection fraction of 50% with moderate to severe mitral and tricuspid regurgitation. 3. Status post fall and subsequent left hip fracture. 4. Chronic disease mineral bone disease maintained on Renvela. Plan: Hemodialysis in a.m. as outpatient Okay for discharge Continue to encourage increased oral intake
[2023-05-21] MEDS: HYDROcodone/APAP 5-325MG 1 EACH TAB PO PRN (14:11)
[2023-05-21] MEDS ORDERED: WARFARIN 0.5 MG TAB PO ONE (18:00)
--- NOTE | 2023-05-28 16:06 | P.OP ---
Date of Procedure: 05/18/23 Preoperative Diagnosis: Left intertrochanteric fracture Postoperative Diagnosis: same Procedure(s) Performed: Left him IM nail Implants: [place] Gamma Nail, short Anesthesia: GETA Surgeon: Kimi Tsang Condition: stable Disposition: PACU Indications for Procedure: Patient had a ground level fall sustaining a left hip intertrochanteric fracture. He was cleared and optimized medically and agreed to proceed with surgical fixation. Description of Procedure: The patient, operative extremity, and procedure were identified in the preop holding area. After informed consent was obtained the patient was brought back to the operating room. After anesthesia was provided by the anesthesia team the patient was positioned on the Priya table. All bony prominences were well- padded. Reduction was performed of the left hip. The extremity was then prepped and draped in normal sterile fashion. A longitudinal incision was made above the greater trochanter. The awl was inserted to obtain the start point. Guidewire was then inserted at the tip of the greater trochanter. Placement and trajectory were confirmed on fluoroscopy. The guidewire is then followed with the opening reamer. A ball-tipped guidewire was placed down the shaft and a 13.5 mm reamer utilized over top. The nail was then slid over the guidewire into place. Using a mallet the nail was positioned to be appropriate depth for the cephalo-medullary device. Triple sleeve cannula was inserted into the jig. Incision was made through the skin and the IT band. The triple sleeve was pushed onto the bone. The guidewire for the cephalo-medullary screw was inserted. Placement and trajectory were confirmed on fluoroscopy. The reamer was then set for the appropriate length to achieve a tipped apex distance of less than 25 mm. After reaming the screw was inserted over the guidewire. This was then locked with a quarter turn release to allow some subsidence. Fluoroscopic views confirm the placement of the screw. Attention was then turned to the locking screw. The triple sleeve was again inserted and an incision was made through the skin and the IT band. Cannulas were pressed down to the bone and a drill inserted. An appropriately length screw was then placed. The jig was then removed and final fluoroscopic views demonstrated good reduction of the fracture and placement of the hardware. The wound was irrigated and closed in a layered fashion with 2-0 Vicryl and Monocryl and skin glue. Wound was dressed with 4 x 4 and Tegaderms.
== END 2023-05-21 14:36 | DRG 480 ==
LOC: EC 15:42 → 4SSUR 19:05
PROVIDERS: ADMIT Orthopaedic Surgery Hand Surgery; ATTEND Orthopaedic Surgery Hand Surgery
PROC: 30233K1 Transfusion of Nonautologous Frozen Plasma into Peripheral Vein, Percutaneous Approach (ICD-10-PCS; 2023-05-17)
PROC: 0QS706Z Reposition Left Upper Femur with Intramedullary Internal Fixation Device, Open Approach (ICD-10-PCS; principal; 2023-05-18 08:00)
PROC: 8E0YXBF Computer Assisted Procedure of Lower Extremity, With Fluoroscopy (ICD-10-PCS; principal; 2023-05-18 08:00)
DX: S72.142A Displaced intertrochanteric fracture of left femur, initial encounter for closed fracture (principal); N18.6 End stage renal disease; I13.2 Hypertensive heart and chronic kidney disease with heart failure and with stage 5 chronic kidney disease, or end stage renal disease; I50.22 Chronic systolic (congestive) heart failure; I48.21 Permanent atrial fibrillation; I44.2 Atrioventricular block, complete; F05 Delirium due to known physiological condition; I25.10 Atherosclerotic heart disease of native coronary artery without angina pectoris; Z79.01 Long term (current) use of anticoagulants; I08.1 Rheumatic disorders of both mitral and tricuspid valves; M89.8X9 Other specified disorders of bone, unspecified site; R01.1 Cardiac murmur, unspecified; W19.XXXA Unspecified fall, initial encounter; R53.1 Weakness; Z95.0 Presence of cardiac pacemaker; W01.0XXA Fall on same level from slipping, tripping and stumbling without subsequent striking against object, initial encounter; Y92.009 Unspecified place in unspecified non-institutional (private) residence as the place of occurrence of the external cause; Z79.82 Long term (current) use of aspirin; Z79.899 Other long term (current) drug therapy; Z96.641 Presence of right artificial hip joint; Z95.5 Presence of coronary angioplasty implant and graft; Z99.2 Dependence on renal dialysis
CPT/HCPCS: 36415; 51702; 71045; 73501; 73502; 80053; 81001; 83735; 83880; 84100; 84484; 85025; 85610; 85730; 86850; 86900; 86901; 90935; 93005; 94640; 94760; 96361; 96374; 96375; 99285

== ENCOUNTER → 2023-08-28 | Outpatient (CLI) | payer MEDICARE ==
[2023-08-28 20:30] LABS: ALT 21 U/L (10-49); AST 13 U/L (14-35); Chol/HDL Ratio 2.85 Ratio; LDL Cholesterol,Calculated 80.4 mg/dL (0.0-131.0); VLDL Calculation 17.56 mg/dL (5.00-40.00)
== END | disposition home or self-care (01) ==
LOC: LABWHC1 12:25
PROVIDERS: ATTEND Internal Medicine
DX: E78.2 Mixed hyperlipidemia (principal)
CPT/HCPCS: 36415; 80061; 84450; 84460

== ENCOUNTER 2024-01-10 05:39 | Day surgery (SDC) | payer MEDICARE ==
[2024-01-10] MEDS ORDERED: EMPTY BAG 1 BAG with SODIUM CHLORIDE 0.9% 1,000 ML IV ONE (05:48)
[2024-01-10 06:32] VITALS: RESP 16; TEMP 98.4
[2024-01-10] MEDS: SODIUM CHLORIDE 0.9% 1,000 ML IV ONE (06:33)
[2024-01-10 06:41] LABS: Anisocytosis Slight; Basophils % (A) 0 %; Eosinophils # (A) 0.1 k/uL (0-0.7); Eosinophils % (A) 1 %; HCT 31.9 % (39.0-53.0); HGB 10.3 gm/dL (13.0-17.5); Hypochromasia Slight; Lymphocytes # (A) 1.1 k/uL (1.0-4.8); Lymphocytes % (A) 12 %; MCH 31.9 pg (25.0-35.0); MCHC 32.3 g/dL (31.0-37.0); MCV 98.7 fL (80.0-100.0); Macrocytosis Slight; Monocytes # (A) 0.7 k/uL (0-1.0); Monocytes % (A) 8 %; Neutrophils # (A) 6.4 k/uL (1.3-7.7); Neutrophils % (A) 76 %; Platelet Count 270 k/uL (150-450); RBC 3.23 m/uL (4.30-5.90); WBC 8.4 k/uL (3.8-10.6)
[2024-01-10 06:48] LABS: INR 1.2 (<1.2); Prothrombin Time 12.4 sec (10.0-12.5)
[2024-01-10 06:51] LABS: African American GFR (CKD) 9 (>60 ml/min/1.73 sqM); Anion Gap 11 mmol/L; Blood Urea Nitrogen 59 mg/dL (9-20); Calcium 9.7 mg/dL (8.4-10.2); Carbon Dioxide 27 mmol/L (22-30); Chloride 98 mmol/L (98-107); Glucose 99 mg/dL (74-99); Non-African American GFR(CKD) 8 (>60 ml/min/1.73 sqM); Potassium 5.4 mmol/L (3.5-5.1); Sodium 136 mmol/L (137-145)
[2024-01-10] MEDS: fentaNYL (PF) 50 MCG/ML 2 ML AMP IVP ONE (07:34)
[2024-01-10] MEDS: MIDAZOLAM 2 MG/2 ML VIAL IVP ONE (07:34)
[2024-01-10] MEDS: LIDOCAINE 1% INJ 10MG/ML (20 ML MDV) SQ ONE (07:40)
[2024-01-10] MEDS: IOPAMIDOL-370 100ML BTL INJ ONE (08:05)
--- NOTE | 2024-01-10 08:43 | P.PCN ---
Date of Procedure: 01/10/24 Preoperative Diagnosis: End-stage renal disease on hemodialysis via left upper extremity fistula Dysfunctional left upper extremity fistula Postoperative Diagnosis: Same Outflow stenosis Procedure(s) Performed: Ultrasound-guided access of the left upper extremity fistula Fistulogram left upper extremity, central venogram Percutaneous transluminal balloon angioplasty of the outflow stenosis Anesthesia: local Surgeon: Akin Melchor Estimated Blood Loss (ml): 5 Pathology: none sent Condition: stable Disposition: PACU Indications for Procedure: 79-year-old gentleman with history of left upper extremity arteriovenous fistula and end-stage renal disease on hemodialysis presented to the office secondary to increased bleeding times at his fistula site after dialysis. Due to this it was thought that he had outflow stenosis and was in need of fistulogram and possible balloon angioplasty. Operative Findings: Outflow stenosis noted just prior to the existing stent. 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 The area of the arm was prepped and draped in usual sterile fashion. Utilizing local anesthetic the fistula was accessed under ultrasound guidance and a 6-Gambian sheath was placed. Fistulogram was then obtained demonstrating significant outflow stenosis roughly 90 mm in length to the existing stent. The stent was widely patent as well as central superior vena cava and subclavian veins without any evidence of stenosis. 035 Glidewire was then placed and balloon angioplasty was performed with an 8 x 60 mm balloon x 2. While the balloon was up a proxim al inflow angiogram was obtained demonstrating no significant stenosis at the proximal anastomosis. There was definite caliber change due to the aneurysmal segment of the fistula. Once balloon was completed a 8 x 60 mm drug-eluting balloon was then placed and balloon angioplasty was performed in normal fashion. Once completed final angiogram was obtained demonstrating improved flow and stenosis at the outflow. Patient tolerated the procedure well and the sheath was removed and suture was placed for hemostasis. He will follow-up in the office in a couple weeks to discuss possible revision of his aneurysmal segment.
[2024-01-10 09:20] VITALS: PULSE 60
[2024-01-10 10:47] VITALS: BP 127/62
--- NOTE | 2024-01-10 11:51 | IR ---
EXAMINATION TYPE: IR fistula/abscess/sinus tract Intraoperative/procedural fluoroscopic services were provided. CLINICAL INDICATION:Male, 79 years old with history of fistulagram, 4.0min fluoro, [id number]; , [facility] Total fluoroscopy time is 4.0 min. DAP: 111.47 uGym2 Please see the operative/procedural note for further details.
== END 2024-01-10 10:05 | disposition home or self-care (01) ==
LOC: CATHCVL 05:39
PROVIDERS: ATTEND Surgery
DX: T82.858A Stenosis of other vascular prosthetic devices, implants and grafts, initial encounter (principal); I12.0 Hypertensive chronic kidney disease with stage 5 chronic kidney disease or end stage renal disease; N18.6 End stage renal disease; Z99.2 Dependence on renal dialysis; Z79.82 Long term (current) use of aspirin; Z79.899 Other long term (current) drug therapy; Z79.01 Long term (current) use of anticoagulants
CPT/HCPCS: 76937; 36902; 80048; 85025; 85610; C1894; C1769 ×3; C1725; C2623; J2250; J2001; J3010; Q9967

== ENCOUNTER → 2024-01-16 | Outpatient (CLI) | payer MEDICARE ==
[2024-01-16 15:23] LABS: HCT 32.7 % (39.6-50.0); HGB 10.5 g/dL (13.0-17.0); MCH 31.7 pg (27.0-32.0); MCHC 32.1 g/dL (32.0-37.0); MCV 98.8 FL (80.0-97.0); Mean Platelet Volume 8.9 FL (9.5-12.2); NRBC Per 100 WBC 0 X 10*3/uL (0.00-0.01); Platelet Count 228 X 10*3/uL (140-440); RBC 3.31 X 10*6/uL (4.40-5.60); RDW 15.3 % (11.5-14.5)
[2024-01-16 15:49] LABS: Erythrocyte Sedimentation Rate 24 mm/Hr (0-20)
[2024-01-16 16:02] LABS: ALT 10 U/L (10-49); AST 15 U/L (14-35); Albumin 4.2 g/dL (3.8-4.9); Alkaline Phosphatase 105 U/L (41-126); BUN/Creat Ratio 5.62 Ratio (12.00-20.00); Blood Urea Nitrogen 26.4 mg/dL (9.0-27.0); Calcium 10.1 mg/dL (8.7-10.3); Carbon Dioxide 26.8 mmol/L (21.6-31.8); Chloride 95 mmol/L (96-109); Globulin 2.8 g/dL (1.6-3.3); Glucose 107 mg/dL (70-110); Rheumatoid Factor, Qnt <15 IU/mL (0-15); Sodium 138 mmol/L (135-145); Total Bilirubin 0.3 mg/dL (0.3-1.2); Uric Acid 3.4 mg/dL (3.7-8.7)
== END | disposition home or self-care (01) ==
LOC: LABWHC1 11:53
PROVIDERS: ATTEND Family Medicine
DX: M79.89 Other specified soft tissue disorders (principal); N18.5 Chronic kidney disease, stage 5; D69.9 Hemorrhagic condition, unspecified
CPT/HCPCS: 36415; 80053; 84550; 85027; 85652; 86431

== ENCOUNTER → 2024-01-23 | Outpatient (CLI) | payer MEDICARE ==
--- NOTE | 2024-01-23 18:10 | NM ---
EXAMINATION TYPE: NM parathyroid w/spect DATE OF EXAM: 01/23/2024 COMPARISON: NONE CLINICAL INDICATION: Male, 79 years old with history of E83.52 HYPERCALCEMIA; TECHNIQUE: Following administration of 24.5 mCi Tc99m Sestamibi. Anterior projection images of the neck and ches t were obtained 10 minutes and 3 hours post injection. SPECT images of the neck and chest were obtai daphne and reconstructed in three axes. FINDINGS: Thyroid tracer washout: Delayed images demonstrate near-complete tracer washout from the thyroid. Parathyroid uptake: Left upper lobe focal uptake suggesting parathyroid adenoma. The two-hour delayed images otherwise do not demonstrate any focal abnormal persistent uptake in the region of the parath yroid glands to suggest parathyroid adenoma. Normal uptake: There is physiological tracer uptake in the myocardium, liver, salivary glands, and th yroid gland. IMPRESSION: There is abnormal uptake on delayed imaging with increased uptake within the left superior thyroid gl and suggesting parathyroid adenoma.
== END | disposition home or self-care (01) ==
LOC: RADNMMAIN 09:46
PROVIDERS: ATTEND Internal Medicine
DX: E83.52 Hypercalcemia (principal)
CPT/HCPCS: 78071; A9500

== ENCOUNTER 2024-02-15 14:15 | Inpatient (IN) | payer MEDICARE ==
[2024-02-15] MEDS: ONDANSETRON 4 MG/2 ML VIAL IVP STA (15:49)
[2024-02-15] MEDS: MECLIZINE 12.5 MG TAB PO STA (15:49)
[2024-02-15] MEDS: SODIUM CHLORIDE 0.9% 500 ML 500 ML IV STA (15:49)
[2024-02-15 16:14] LABS: Anisocytosis Slight; Basophils % (A) 0 %; Eosinophils # (A) 0.1 k/uL (0-0.7); Eosinophils % (A) 1 %; HCT 20.6 % (39.0-53.0); Lymphocytes # (A) 0.9 k/uL (1.0-4.8); Lymphocytes % (A) 10 %; MCH 33.4 pg (25.0-35.0); MCHC 33.3 g/dL (31.0-37.0); MCV 100.2 fL (80.0-100.0); Macrocytosis Slight; Mean Platelet Volume 7.7; Monocytes # (A) 0.5 k/uL (0-1.0); Monocytes % (A) 6 %; Neutrophils # (A) 7.3 k/uL (1.3-7.7); Neutrophils % (A) 81 %; Partial Thromboplastin Time 46.5 sec (22.0-30.0); Platelet Count 279 k/uL (150-450); RBC 2.06 m/uL (4.30-5.90)
[2024-02-15 16:16] LABS: HGB 6.9 gm/dL (13.0-17.5)
[2024-02-15 16:23] LABS: ALT 15 U/L (4-49); AST 21 U/L (17-59); African American GFR (CKD) 11 (>60 ml/min/1.73 sqM); Albumin 3.9 g/dL (3.5-5.0); Alkaline Phosphatase 86 U/L (38-126); Anion Gap 17 mmol/L; Blood Urea Nitrogen 53 mg/dL (9-20); Calcium 8.3 mg/dL (8.4-10.2); Carbon Dioxide 21 mmol/L (22-30); Chloride 97 mmol/L (98-107); Glucose 93 mg/dL (74-99); Magnesium 2.2 mg/dL (1.6-2.3); Non-African American GFR(CKD) 9 (>60 ml/min/1.73 sqM); Potassium 4.3 mmol/L (3.5-5.1); Sodium 135 mmol/L (137-145); Total Bilirubin 0.7 mg/dL (0.2-1.3); Total Protein 6.3 g/dL (6.3-8.2)
[2024-02-15 16:28] LABS: Prothrombin Time 70.5 sec (10.0-12.5)
[2024-02-15 16:45] LABS: INR 7.2 (<1.2)
--- NOTE | 2024-02-15 16:54 | XR ---
EXAMINATION TYPE: XR chest 2V DATE OF EXAM: 02/15/2024 4:41 PM CLINICAL INDICATION:Male, 79 years old with history of Weakness; [facility] COMPARISON: Chest radiographs from 05/16/2023. TECHNIQUE: XR chest 2V Frontal and lateral views of the chest. FINDINGS: Lungs/Pleura: Airspace opacities in the right lung base, no evidence for pneumothorax or pleural effu michael. Pulmonary vascularity: Unremarkable. Heart/mediastinum: Cardiomediastinal silhouette is enlarged and stable. Atherosclerotic calcificatio ns are seen in the aorta. Two lead cardiac conduction device overlying the left hemithorax with lead tips projecting over the right ventricle and right atrium. Musculoskeletal: No acute osseous pathology. Other findings: Left upper stent graft. IMPRESSION: 1. Airspace opacities in the right lung base correlate for developing pneumonia. 2. Cardiomegaly.
--- NOTE | 2024-02-15 18:06 | ED ---
General Adult HPI - General Chief complaint: Weakness Stated complaint: weak Time Seen by Provider: 02/15/24 14:50 Source: patient, RN notes reviewed, old records reviewed Mode of arrival: ambulatory Limitations: no limitations - History of Present Illness Initial comments: Presents emergency department complaining of lightheadedness/dizziness as well as weakness on and off for the past 6 months but slightly worse over the last week or so. Patient did have a significant mount of nosebleeds throughout the week this week. Last nosebleed occurred yesterday. Has been a daily occurrence. Patient is on Coumadin with a history of A-fib. Also history of ESRD on dialysis. He denies any chest pain. Missed his run of dialysis last Saturday but not on Saturday. States he has had intermittent nausea and vomiting. Feels weak in general. Presents for further evaluation. Denies any hematochezia, melena, dark tarry stools. Denies any hematemesis. Presents for further evaluation at this time. - Related Data Home Medications Medication Instructions Recorded Confirmed Aspirin EC [Ecotrin Low Dose] 81 mg PO DAILY 08/04/21 02/15/24 Dialyvite 1 tab PO HS 08/04/21 02/15/24 Sevelamer Carbonate 1,600 mg PO TID-W/MEALS 08/28/22 02/15/24 levOCARNitine [Levocarnitine] 330 mg PO HS 01/15/23 02/15/24 Atorvastatin [Lipitor] 20 mg PO DAILY 05/16/23 02/15/24 Furosemide [Lasix] 40 mg PO BID 05/16/23 02/15/24 Sildenafil [Revatio] 20 mg PO BID 05/16/23 02/15/24 Warfarin [Coumadin] 2 mg PO MOTUWETHFR@209901/10/24 02/15/24 Omeprazole 20 mg PO HS 02/15/24 02/15/24 Warfarin [Coumadin] 3 mg PO SUSA@209902/15/24 02/15/24 carvediloL [Coreg] 3.125 mg PO BID 02/15/24 02/15/24 traZODone HCL [Desyrel] 50 mg PO HS 02/15/24 02/15/24 Allergies Allergy/AdvReac Type Severity Reaction Status Date / Time No Known Allergies Allergy Verified 02/15/24 14:20 Review of Systems ROS Statement: Those systems with pertinent positive or pertinent negative responses have been documented in the HPI. Review of Systems: CONST: Denies fever EYES: Denies blurry vision ENT: Denies nasal congestion C/V: Denies Chest pain RESP: Denies shortness of breath GI: Denies abdominal pain : Denies dysuria SKIN: Denies rash. MSK: Denies joint pain. NEURO: Endorses generalized weakness ROS Other: All systems not noted in ROS Statement are negative. Past Medical History Past Medical History: Atrial Fibrillation, Dialysis, Eye Disorder Additional Past Medical History / Comment(s): heart murmur, Kidney Failure- Dialysis MOWEFR-has little urine output,approx twice per day,pt thinks may be on fluid restrictions checking with dialysis on 01-16-23 to confirm how much fluids per day he can have. Cataracts. History of Any Multi-Drug Resistant Organisms: None Reported Past Surgical History: Joint Replacement, Pacemaker Additional Past Surgical History / Comment(s): Cardiac stents, right hip replacement,left upper arm av fistula Past Anesthesia/Blood Transfusion Reactions: No Reported Reaction Additional Past Anesthesia/Blood Transfusion Reaction / Comment(s): no problems with prior blood transfusion Type of Cardiac Device: Unknown Device Placement Date:: 2010 Past Psychological History: No Psychological Hx Reported Smoking Status: Never smoker Past Alcohol Use History: None Reported Past Drug Use History: None Reported - Past Family History Father Family Medical History: Hypertension Brother(s) Family Medical History: Cancer Additional Family Medical History / Comment(s): 2 brothers of cancer. General Exam - General Exam Comments Initial Comments: General: Appears in no acute distress. HEAD: Normal with no signs of head trauma. EYES: PERRLA, EOMI, conjunctiva normal, no discharge. ENT: Hearing grossly intact, normal oropharynx. RESPIRATORY: Clear breath sounds bilaterally. No wheezes, rales, or rhonchi. C/V: Regular rate and rhythm. S1 and S2 auscultated, no edema, peripheral pulses 2+ and intact throughout. Left upper extremity AV fistula has palpable thrill and audible bruit. ABD: Abd is soft, nontender, nondistended rectal exam shows good rectal tone. No gross blood per rectum. Brown stool. Occult blood sent. EXT: Normal range of motion, no obvious deformity SKIN: No rashes or lesions observed on exposed skin. NEURO: Alert and oriented x 4. Cranial nerves II-XII intact. No focal sensory or strength deficits. Limitations: no limitations Course Vital Signs 02/15/24 02/15/24 14:17 16:00 Temperature 98.1 F Pulse Rate 60 Pulse Rate [ 60 Plant Cytologist ] Pulse Rate [ 60 Sitting] Pulse Rate [ 69 Standing] Pulse Rate [ 62 Supine] Respiratory 20 18 Rate Blood Pressure 135/90 Blood Pressure 106/74 [Sitting] Blood Pressure 110/72 [Standing] Blood Pressure 99/68 [Supine] O2 Sat by Pulse 97 98 Oximetry Medical Decision Making - Medical Decision Making Was pt. sent in by a medical professional or institution (, PA, ASSISTANT ASSOCIATE PROFESSOR, urgent care, hospital, or long-term...) When possible be specific @ -No Did you speak to anyone other than the patient for history (EMS, parent, family, police, friend...)? What history was obtained from this source @ -No Did you review nursing and triage notes (agree or disagree)? Why? @ -I reviewed and agree with nursing and triage notes Were old charts reviewed (outside hosp., previous admission, EMS record, old EKG, old radiological studies, urgent care reports/EKG's, long-term records)? Report findings @ -Charts reviewed including laboratory studies to compare to previous hemoglobins. Compared with studies from 1 month ago on January 15. Currently more anemic as hemoglobin at that time was 10.5. Currently it is 6.9. Differential Diagnosis (chest pain, altered mental status, abdominal pain women, abdominal pain men, vaginal bleeding, weakness, fever, dyspnea, syncope, headache, dizziness, GI bleed, back pain, seizure, CVA, palpatations, mental health, musculoskeletal)? @ -Differential Weakness: Hypoglycemia, shock, sepsis, hyponatremia, anemia, infection, MT, ETOH, adverse medicine reaction, overdose, stroke, this is not meant to be an all-inclusive list. EKG interpreted by me (3pts min.). @ -As above X-rays interpreted by me (1pt min.). @ -Chest x-ray reveals possible developing pneumonia in the right lower lung. CT interpreted by me (1pt min.). @ -None done U/S interpreted by me (1pt. min.). @ -None done What testing was considered but not performed or refused? (CT, X-rays, U/S, labs)? Why? @ -None What meds were considered but not given or refused? Why? @ -None Did you discuss the management of the patient with other professionals (professionals i.e. , PA, ASSISTANT ASSOCIATE PROFESSOR, lab, RT, psych nurse, family welfare social work professor, publishing director, teacher, chief revenue officer, caseworker protective services)? Give summary @ -No Was smoking cessation discussed for >3mins.? @ -No Was critical care preformed (if so, how long)? @ -No Were there social determinants of health that impacted care today? How? (Homelessness, low income, unemployed, alcoholism, drug addiction, transportation, low edu. Level, literacy, decrease access to med. care, retirement, rehab)? @ -No Was there de-escalation of care discussed even if they declined (Discuss DNR or withdrawal of care, Hospice)? DNR status @ -No What co-morbidities impacted this encounter? (DM, HTN, Smoking, COPD, CAD, Cancer, CVA, ARF, Chemo, Hep., AIDS, mental health diagnosis, sleep apnea, morbid obesity)? @ -On Coumadin. History of ESRD on hemodialysis. Recent nosebleeds. Was patient admitted / discharged? Hospital course, mention meds given and route, prescriptions, significant lab abnormalities, going to OR and other pertinent info. @ -Patient presents emergency department complaining of weakness. Is been progressive but worse over the last few days. Had multiple episodes of epistaxis earlier this week. Is on Coumadin. We will obtain basic workup. Complaining of lightheadedness and did discuss obtaining CT brain which he was in agreement with. Patient will be symptomatically treated with a small amount of IV fluids as well as IV Zofran. He was in agreement this plan. Laboratory studies remarkable for a anemia of 6.9 which is likely secondary to supratherapeutic INR of 7.2. Last nosebleed occurred yesterday. No bleeding today. Denies any GI GI bleed. Rectal exam unremarkable. Occult blood negative. Labs remarkable for elevated BUN and creatinine in the setting of ESRD on hemodialysis. Lactic acid slightly elevated 2.7. Viral swabs negative. CT brain shows no signs of acute ischemia. On reevaluation, patient be started on IV antibiotics as well as given a small d ose of oral vitamin K as he is not actively bleeding. He was in agreement this plan. We will hold his Coumadin. He is resting comfortably at this time. He will be transfused 1 unit of packed red blood cells. Nephrology consulted for dialysis. Patient was in agreement this plan. I spoke with Dr. Mcgregor who accepted the admission. Undiagnosed new problem with uncertain prognosis? @ -No Drug Therapy requiring intensive monitoring for toxicity (Heparin, Nitro, Insulin, Cardizem)? @ -No Were any procedures done? @ -No Diagnosis/symptom? @ -Symptomatic anemia, pneumonia, supratherapeutic INR, weakness Acute, or Chronic, or Acute on Chronic? @ -Acute Uncomplicated (without systemic symptoms) or Complicated (systemic symptoms)? @ -Complicated Side effects of treatment? @ -No Exacerbation, Progression, or Severe Exacerbation? @ -No Poses a threat to life or bodily function? How? (Chest pain, USA, MT, pneumonia, PE, COPD, DKA, ARF, appy, cholecystitis, CVA, Diverticulitis, Homicidal, Suicidal, threat to staff... and all critical care pts) @ -Yes - Lab Data Result diagrams: 02/15/24 15:39 02/15/24 15:39 Lab Results 02/15/24 02/15/24 02/15/24 Range/Units 15:39 15:39 15:39 WBC 9.0 (3.8-10.6) k/uL RBC 2.06 L (4.30-5.90) m/uL Hgb 6.9 L* D (13.0-17.5) gm/dL Hct 20.6 L (39.0-53.0) % MCV 100.2 H (80.0-100.0) fL MCH 33.4 (25.0-35.0) pg MCHC 33.3 (31.0-37.0) g/dL RDW 17.0 H (11.5-15.5) % Plt Count 279 (150-450) k/uL MPV 7.7 Neutrophils % 81 % Lymphocytes % 10 % Monocytes % 6 % Eosinophils % 1 % Basophils % 0 % Neutrophils # 7.3 (1.3-7.7) k/uL Lymphocytes # 0.9 L (1.0-4.8) k/uL Monocytes # 0.5 (0-1.0) k/uL Eosinophils # 0.1 (0-0.7) k/uL Basophils # 0.0 (0-0.2) k/uL Anisocytosis Slight Macrocytosis Slight PT 70.5 H (10.0-12.5) sec INR 7.2 H* (<1.2) APTT 46.5 H (22.0-30.0) sec Sodium 135 L (137-145) mmol/L Potassium 4.3 (3.5-5.1) mmol/L Chloride 97 L (98-107) mmol/L Carbon Dioxide 21 L (22-30) mmol/L Anion Gap 17 mmol/L BUN 53 H (9-20) mg/dL Creatinine 5.29 H (0.66-1.25) mg/dL Est GFR (CKD-EPI)AfAm 11 (>60 ml/min/1.73 sqM) Est GFR (CKD-EPI)NonAf 9 (>60 ml/min/1.73 sqM) Glucose 93 (74-99) mg/dL Lactic Ac Sepsis Rflx Plasma Lactic Acid Eric (0.7-2.0) mmol/L Calcium 8.3 L (8.4-10.2) mg/dL Magnesium 2.2 (1.6-2.3) mg/dL Total Bilirubin 0.7 (0.2-1.3) mg/dL AST 21 (17-59) U/L ALT 15 (4-49) U/L Alkaline Phosphatase 86 (38-126) U/L Total Protein 6.3 (6.3-8.2) g/dL Albumin 3.9 (3.5-5.0) g/dL Stool Occult Blood (Negative) Influenza Type A (PCR) (Not Detectd) Influenza Type B (PCR) (Not Detectd) RSV (PCR) (Not Detectd) SARS-CoV-2 (PCR) (Not Detectd) Blood Type Blood Type Recheck Bld Type Recheck Status Antibody Screen Crossmatch Spec Expiration Date 02/15/24 02/15/24 02/15/24 Range/Units 15:39 15:55 16:28 WBC (3.8-10.6) k/uL RBC (4.30-5.90) m/uL Hgb (13.0-17.5) gm/dL Hct (39.0-53.0) % MCV (80.0-100.0) fL MCH (25.0-35.0) pg MCHC (31.0-37.0) g/dL RDW (11.5-15.5) % Plt Count (150-450) k/uL MPV Neutrophils % % Lymphocytes % % Monocytes % % Eosinophils % % Basophils % % Neutrophils # (1.3-7.7) k/uL Lymphocytes # (1.0-4.8) k/uL Monocytes # (0-1.0) k/uL Eosinophils # (0-0.7) k/uL Basophils # (0-0.2) k/uL Anisocytosis Macrocytosis PT (10.0-12.5) sec INR (<1.2) APTT (22.0-30.0) sec Sodium (137-145) mmol/L Potassium (3.5-5.1) mmol/L Chloride (98-107) mmol/L Carbon Dioxide (22-30) mmol/L Anion Gap mmol/L BUN (9-20) mg/dL Creatinine (0.66-1.25) mg/dL Est GFR (CKD-EPI)AfAm (>60 ml/min/1.73 sqM) Est GFR (CKD-EPI)NonAf (>60 ml/min/1.73 sqM) Glucose (74-99) mg/dL Lactic Ac Sepsis Rflx Y Plasma Lactic Acid Eric 2.7 H* (0.7-2.0) mmol/L Calcium (8.4-10.2) mg/dL Magnesium (1.6-2.3) mg/dL Total Bilirubin (0.2-1.3) mg/dL AST (17-59) U/L ALT (4-49) U/L Alkaline Phosphatase (38-126) U/L Total Protein (6.3-8.2) g/dL Albumin (3.5-5.0) g/dL Stool Occult Blood (Negative) Influenza Type A (PCR) Not Detected (Not Detectd) Influenza Type B (PCR) Not Detected (Not Detectd) RSV (PCR) Not Detected (Not Detectd) SARS-CoV-2 (PCR) Not Detected (Not Detectd) Blood Type Blood Type Recheck Bld Type Recheck Status Antibody Screen Crossmatch Spec Expiration Date 02/15/24 02/15/24 02/15/24 Range/Units 17:05 17:30 19:07 WBC (3.8-10.6) k/uL RBC (4.30-5.90) m/uL Hgb (13.0-17.5) gm/dL Hct (39.0-53.0) % MCV (80.0-100.0) fL MCH (25.0-35.0) pg MCHC (31.0-37.0) g/dL RDW (11.5-15.5) % Plt Count (150-450) k/uL MPV Neutrophils % % Lymphocytes % % Monocytes % % Eosinophils % % Basophils % % Neutrophils # (1.3-7.7) k/uL Lymphocytes # (1.0-4.8) k/uL Monocytes # (0-1.0) k/uL Eosinophils # (0-0.7) k/uL Basophils # (0-0.2) k/uL Anisocytosis Macrocytosis PT (10.0-12.5) sec INR (<1.2) APTT (22.0-30.0) sec Sodium (137-145) mmol/L Potassium (3.5-5.1) mmol/L Chloride (98-107) mmol/L Carbon Dioxide (22-30) mmol/L Anion Gap mmol/L BUN (9-20) mg/dL Creatinine (0.66-1.25) mg/dL Est GFR (CKD-EPI)AfAm (>60 ml/min/1.73 sqM) Est GFR (CKD-EPI)NonAf (>60 ml/min/1.73 sqM) Glucose (74-99) mg/dL Lactic Ac Sepsis Rflx Plasma Lactic Acid Eric 3.1 H* (0.7-2.0) mmol/L Calcium (8.4-10.2) mg/dL Magnesium (1.6-2.3) mg/dL Total Bilirubin (0.2-1.3) mg/dL AST (17-59) U/L ALT (4-49) U/L Alkaline Phosphatase (38-126) U/L Total Protein (6.3-8.2) g/dL Albumin (3.5-5.0) g/dL Stool Occult Blood Negative (Negative) Influenza Type A (PCR) (Not Detectd) Influenza Type B (PCR) (Not Detectd) RSV (PCR) (Not Detectd) SARS-CoV-2 (PCR) (Not Detectd) Blood Type O Positive Blood Type Recheck O Pos Bld Type Recheck Status No Antibody Screen NEGATIVE Crossmatch See Detail Spec Expiration Date 02/18/20242304 - EKG Data -: EKG Interpreted by Me EKG Comments: 12-lead Electrocardiogram Interpretation Note EKG was reviewed and interpreted by myself. 12-lead ECG performed at 1742 is interpreted by me as revealing normal sinus rhythm at a rate of 61 beats per minute. Indeterminate axis. QRS durations 133 ms, QTc is [address] segment depressions in the lateral leads her rhythm is not paced.. . . Disposition Clinical Impression: Supratherapeutic INR, Symptomatic anemia, ESRD (end stage renal disease) on dialysis, Weakness, Pneumonia Disposition: ADMITTED IP TO THIS HOSP Condition: Stable Time of Disposition: 19:36
--- NOTE | 2024-02-15 19:17 | CT ---
EXAMINATION TYPE: CT brain wo con DATE OF EXAM: 02/15/2024 COMPARISON: None HISTORY: 79-year-old male with weakness TECHNIQUE: Examination was done in axial plane without intravenous contrast. Coronal and sagittal r econstructions performed. CT DLP: 1208.8 mGycm Automated exposure control for dose reduction was used. FINDINGS: There is no evidence of acute intracranial hemorrhage, acute ischemic changes, mass, mass-effect, or extra-axial fluid collection. There is no effacement of cerebral sulci or basal subarachnoid cister ns. Mild ventricular prominence likely due to central cerebral atrophy. Moderate patchy white matter hypodensities in both cerebral hemispheres. Benign basal ganglionic calcifications. There is no midli ne shift. Morgan-white matter distinction is preserved. Atherosclerotic calcifications in the carotid siphons. Paranasal sinuses and mastoid air cells are well pneumatized. Orbits and globes are intact. IMPRESSION: Moderate patchy burden of chronic small vessel ischemic disease. Mild central cerebral atrophy. No ac [place] intracranial abnormality seen.
[2024-02-15] MEDS ORDERED: ACETAMINOPHEN TAB 325 MG TAB PO PRN (19:27)
[2024-02-15] MEDS ORDERED: NALOXONE 0.4 MG/ML 1 ML VIAL IV PRN (19:27)
[2024-02-15] MEDS ORDERED: ONDANSETRON 4 MG/2 ML VIAL IVP PRN (19:27)
[2024-02-15] MEDS ORDERED: PNEUMONIA PROTOCOL UTILIZED 1 EACH MISC PO PRN (20:10)
[2024-02-15] MEDS: PHYTONADIONE ORAL 5 MG/5 ML ORAL.SYRG PO STA (20:40)
[2024-02-15] MEDS: traZODone HCL 50 MG TAB PO SCH (23:18)
[2024-02-15] MEDS: FUROSEMIDE 40 MG TAB PO SCH (23:18)
[2024-02-15] MEDS: carvediloL 3.125 MG TAB PO SCH (23:18)
[2024-02-15] MEDS: SEVELAMER 800 MG TAB PO SCH (23:18)
[2024-02-15] MEDS: PANTOPRAZOLE 40 MG TABLET PO SCH (23:19)
[2024-02-16] MEDS: NON FORMULARY DRUG (Levocarnitine [Levocarnitine] 330 MG Tablet) PO SCH (00:30)
[2024-02-16] MEDS: SILDENAFIL 20 MG TAB PO SCH (00:31)
--- NOTE | 2024-02-16 01:32 | HP ---
HISTORY AND PHYSICAL CHIEF COMPLAINT: Generalized weakness and tired. HISTORY OF PRESENT ILLNESS: This is an 79-year-old gentleman with a past medical history of multiple medical problems including atrial fibrillation, history of heart murmur, kidney failure, is on hemodialysis. The patient is complaining of severe extreme weakness for the last few weeks, which has become worse over the past several days. The patient had history of peripheral vascular disease as well. There is no history of any fever, rigors, or chills. The patient appears to be in pain. The labs are not available at this time. PAST MEDICAL HISTORY: Reviewed include chronic renal failure, on hemodialysis. Rest of the history and chart is also reviewed. HOME MEDICATIONS: Also reviewed include Ultram, doses and rest of medications noted and reviewed. The patient also had COVID in the past. ALLERGIES: None. FAMILY HISTORY: History of cancer. SOCIAL HISTORY: No smoking, no alcohol intake. REVIEW OF SYSTEMS: A 14-point review is negative except as mentioned earlier. PHYSICAL EXAMINATION: VITAL SIGNS: Pulse is 60, blood pressure 135/90, respirations 20. HEENT: Conjunctivae normal. NECK: No jugular venous distention. No carotid bruit. CARDIOVASCULAR: S1, S2. RESPIRATION: Few scattered rhonchi and crackles. ABDOMEN: Soft. LEGS: No edema. No swelling. NERVOUS SYSTEM: Diffusely weak. SKIN: Pale and yellowish. JOINTS: No active deforming arthropathy. LABORATORY DATA: Not available. ASSESSMENT: 1. Severe weakness and tiredness, rule out anemia, symptomatic. 2. Chronic kidney disease, end-stage renal disease, on hemodialysis. 3. Rule out influenza. 4. Atrial fibrillation. 5. History of disorder. 6. History of DJD. RECOMMENDATIONS AND DISCUSSION: This 79-year-old gentleman presented with multiple complex medical issues, will monitor the patient closely. We will obtain stat labs and if the hemoglobin is less than 8, I would recommend transfusion. Also recommend cultures and other evaluation, rule out possibility of sepsis. COVID-19 and flu also will be tested. Chest x-ray, basic labs also will be arranged. Please note the patient had just entered the ER. I would recommend to continue all this medications. Admit the patient for more than 2 nights because of the above-mentioned multiple complex medical issues. Once again the prognosis guarded. Discussed with the patient's family. Further recommendations to follow. See orders for the details. MMODL / IJN: [id number] / MARIANNED
[2024-02-16] MEDS: AZITHROMYCIN 500 MG in SODIUM CHLORIDE 0.9% 250 ML IVPB STA (01:39)
[2024-02-16] MEDS: ATORVASTATIN 20 MG TAB PO SCH (09:28)
[2024-02-16] MEDS: AZITHROMYCIN 500 MG TAB PO SCH (09:28)
--- NOTE | 2024-02-16 09:40 | XR ---
EXAMINATION TYPE: XR chest 2V DATE OF EXAM: 02/16/2024 COMPARISON: 02/15/2024 HISTORY: 79-year-old male with pneumonia TECHNIQUE: PA and lateral views FINDINGS: Left anterior chest wall pacemaker generator with right ventricular and coronary sinus leads. Heart m ildly enlarged. Diffuse interstitial density persists. Patchy right lower lung opacity is similar. No pleural effusion. Left subclavian vascular stent noted. IMPRESSION: 1. Correlate for possible mild pulmonary vascular congestion. 2. Patchy opacity at the right lower lung is similar.
[2024-02-16 10:30] LABS: Anisocytosis Slight; Basophils % (A) 0 %; Eosinophils # (A) 0.1 k/uL (0-0.7); Eosinophils % (A) 1 %; HCT 24.8 % (39.0-53.0); Hypochromasia Slight; Lymphocytes % (A) 13 %; MCH 32.4 pg (25.0-35.0); MCHC 32.1 g/dL (31.0-37.0); Macrocytosis Moderate; Mean Platelet Volume 8.1; Monocytes # (A) 0.6 k/uL (0-1.0); Monocytes % (A) 8 %; Neutrophils # (A) 5.6 k/uL (1.3-7.7); Neutrophils % (A) 75 %; Platelet Count 264 k/uL (150-450); Poikilocytosis Slight; RBC 2.46 m/uL (4.30-5.90); RDW 17.7 % (11.5-15.5); WBC 7.5 k/uL (3.8-10.6)
[2024-02-16 10:48] LABS: ALT 34 U/L (4-49); AST 31 U/L (17-59); African American GFR (CKD) 9 (>60 ml/min/1.73 sqM); Albumin 3.5 g/dL (3.5-5.0); Alkaline Phosphatase 73 U/L (38-126); Anion Gap 14 mmol/L; Blood Urea Nitrogen 60 mg/dL (9-20); Calcium 8.1 mg/dL (8.4-10.2); Carbon Dioxide 24 mmol/L (22-30); Chloride 97 mmol/L (98-107); Glucose 134 mg/dL (74-99); Non-African American GFR(CKD) 8 (>60 ml/min/1.73 sqM); Potassium 4.2 mmol/L (3.5-5.1); Sodium 135 mmol/L (137-145); Total Bilirubin 0.6 mg/dL (0.2-1.3); Total Protein 5.8 g/dL (6.3-8.2)
[2024-02-16 10:59] LABS: INR 5.9 (<1.2)
--- NOTE | 2024-02-16 12:02 | P.NPCON ---
History of Present Illness - Reason for Consult Consult date: 02/16/24 - Chief Complaint Weakness - History of Present Illness Presents emergency department complaining of lightheadedness/dizziness as well as weakness on and off for the past 6 months but slightly worse over the last week or so. Patient did have a significant mount of nosebleeds throughout the week this week. Last nosebleed occurred yesterday. Has been a daily occurrence. Patient is on Coumadin with a history of A-fib. Also history of ESRD on dialysis. He denies any chest pain. Missed his run of dialysis last Saturday but not on Saturday. States he has had intermittent nausea and vomiting. Feels weak in general. Presents for further evaluation. Denies any hematochezia, melena, dark tarry stools. Denies any hematemesis. Presents for further evaluation at this time. Vital signs are stable. General: No acute distress. HEENT: Head exam is unremarkable. LUNGS: No audible rhonchi or wheezes. HEART: Rate and Rhythm are regular. ABDOMEN: Nontender. EXTREMITITES: No edema. Review of Systems Constitutional: Reports as per HPI Past Medical History Past Medical History: Atrial Fibrillation, Dialysis, Eye Disorder Additional Past Medical History / Comment(s): heart murmur, Kidney Failure- Dialysis MOWEFR-has little urine output,approx twice per day,pt thinks may be on fluid restrictions checking with dialysis on 01-16-23 to confirm how much fluids per day he can have. Cataracts. History of Any Multi-Drug Resistant Organisms: None Reported Past Surgical History: Joint Replacement, Pacemaker Additional Past Surgical History / Comment(s): Cardiac stents, right hip replacement,left upper arm av fistula Past Anesthesia/Blood Transfusion Reactions: No Reported Reaction Additional Past Anesthesia/Blood Transfusion Reaction / Comment(s): no problems with prior blood transfusion Type of Cardiac Device: Unknown Device Placement Date:: 2010 Past Psychological History: No Psychological Hx Reported Smoking Status: Never smoker Past Alcohol Use History: None Reported Past Drug Use History: None Reported - Past Family History Father Family Medical History: Hypertension Brother(s) Family Medical History: Cancer Additional Family Medical History / Comment(s): 2 brothers of cancer. Medications and Allergies Home Medications Medication Instructions Recorded Confirmed Type Aspirin EC [Ecotrin Low Dose] 81 mg PO DAILY 08/04/21 02/15/24 History Dialyvite 1 tab PO HS 08/04/21 02/15/24 History Sevelamer Carbonate 1,600 mg PO TID-W/MEALS 08/28/22 02/15/24 History levOCARNitine [Levocarnitine] 330 mg PO HS 01/15/23 02/15/24 History Atorvastatin [Lipitor] 20 mg PO DAILY 05/16/23 02/15/24 History Furosemide [Lasix] 40 mg PO BID 05/16/23 02/15/24 History Sildenafil [Revatio] 20 mg PO BID 05/16/23 02/15/24 History Warfarin [Coumadin] 2 mg PO [id number]@209901/10/24 02/15/24 History Omeprazole 20 mg PO HS 02/15/24 02/15/24 History Warfarin [Coumadin] 3 mg PO SUSA@209902/15/24 02/15/24 History carvediloL [Coreg] 3.125 mg PO BID 02/15/24 02/15/24 History traZODone HCL [Desyrel] 50 mg PO HS 02/15/24 02/15/24 History Allergies Allergy/AdvReac Type Severity Reaction Status Date / Time No Known Allergies Allergy Verified 02/15/24 14:20 Physical Exam Vitals: Vital Signs Temp Pulse Pulse Pulse Pulse Pulse Resp 02/16/24 08:00 97.7 F 65 83 60 16 02/16/24 04:26 60 02/16/24 02:00 98.1 F 60 18 02/16/24 01:40 60 15 02/16/24 01:30 98.1 F 60 16 02/16/24 01:00 98.1 F 60 15 02/16/24 00:30 98 F 60 16 02/16/24 00:00 98.0 F 61 16 02/15/24 23:45 97.7 F 60 18 02/15/24 23:31 97.9 F 60 20 02/15/24 23:30 97.7 F 61 18 02/15/24 23:15 97.9 F 60 20 02/15/24 23:10 97.9 F 59 L 16 02/15/24 16:00 60 60 69 62 18 02/15/24 14:17 98.1 F 60 20 BP BP BP BP Pulse Ox 02/16/24 08:00 126/65 144/70 112/54 100 02/16/24 04:26 108/53 99 02/16/24 02:00 110/68 100 02/16/24 01:40 129/68 100 02/16/24 01:30 129/68 100 02/16/24 01:00 121/59 100 02/16/24 00:30 121/60 100 02/16/24 00:00 128/63 02/15/24 23:45 116/52 98 02/15/24 23:31 116/55 100 02/15/24 23:30 116/55 02/15/24 23:15 116/56 100 02/15/24 23:10 114/53 02/15/24 16:00 106/74 110/72 99/68 98 02/15/24 14:17 135/90 97 Intake and Output 02/15/24 02/16/24 02/16/24 22:59 06:59 14:59 Intake Total 310 Balance 310 Intake: Blood Product 310 Rc As-1 Unit 310 [id number] Results - Lab Results Most recent lab results Calcium 8.3 mg/dL (8.4-10.2) L 02/15/24 15:39 Magnesium 2.2 mg/dL (1.6-2.3) 02/15/24 15:39 02/16/24 10:14 02/16/24 10:14 Assessment and Plan Plan: Assessment: 1. End-stage renal disease maintained on hemodialysis on Saturday schedule. 2. Chronic systolic CHF with ejection fraction of 50% with moderate to severe mitral and tricuspid regurgitation. 3. Symptomatic Anemia with CKD. Hb 6.9 on presentation. 4. Supratheraputic INR s/p Vit K. 5. Chronic disease mineral bone disease maintained on Renvela. 6. Hypertension with CKD Plan: Hemodialysis tomorrow per MWF schedule Repeat CBC after blood transfusion Monitor INR Resume home BP medications
[2024-02-16] MEDS ORDERED: ZINC OXIDE PASTE (Z-GUARD) 1 APPLIC TOPICAL PRN (12:58)
--- NOTE | 2024-02-16 16:42 | P.CNPUL ---
History of Present Illness Consult date: 02/16/24 Requesting physician: Colby Mcgregor Reason for consult: pneumonia Chief complaint: Chronic weakness History of present illness: This is an 79-year-old white male with history of rectal problems including end- stage renal disease, on hemodialysis, missed his last hemodialysis last Saturday but not on Saturday. Patient presented to the ER with chronic weakness on and off for the last 6 months. Patient also had intermittent episodes of nausea and vomiting, feels generally weak. Patient denies any melena, denies any hematemesis, however he did have history of nosebleeds. Workup in the ER revealed that his INR is elevated at 5.9, patient is on Coumadin it also revealed a hemoglobin of 6.9, chest x-ray showed evidence of right lower lobe pneumonia, patient is not a great historian, denies any cough denies any fever or chills, but nonetheless he feels generally weak. Considering his abnormal chest x-ray, this consult was initiated. Patient has been seen already by nephrology and he was seen by the admitting physician, already placed on antibiotics in the form of Rocephin and Zithromax. Again the patient is a very poor historian, seems to be confused, and he could not give me a very adequate history when asked if short of breath or if he is having any cough symptoms patient denied. Review of Systems REVIEW OF SYSTEMS: CONSTITUTIONAL: Generalized weakness no fever no chills patient feels usually lightheaded. EYES: Negative. ENT: History of epistaxis and nosebleeds CARDIAC: Negative. PULMONARY: Denies any cough wheezing or shortness of breath GI: Denies any melena or hematemesis GENITOURINARY: Denies any hematuria, denies any dysuria MUSCULOSKELETAL: Negative. SKIN: Negative. NEUROPSYCH: Patient feels dizzy and lightheaded most of the time. ENDOCRINE: Negative. HEMATOLOGIC: As noted in HPI Past Medical History Past Medical History: Atrial Fibrillation, Dialysis, Eye Disorder Additional Past Medical History / Comment(s): heart murmur, Kidney Failure- Dialysis MOWEFR-has little urine output,approx twice per day,pt thinks may be on fluid restrictions checking with dialysis on 01-16-23 to confirm how much fluids per day he can have. Cataracts. History of Any Multi-Drug Resistant Organisms: None Reported Past Surgical History: Joint Replacement, Pacemaker Additional Past Surgical History / Comment(s): Cardiac stents, right hip replacement,left upper arm av fistula Past Anesthesia/Blood Transfusion Reactions: No Reported Reaction Additional Past Anesthesia/Blood Transfusion Reaction / Comment(s): no problems with prior blood transfusion Type of Cardiac Device: Unknown Device Placement Date:: 2010 Past Psychological History: No Psychological Hx Reported Smoking Status: Never smoker Past Alcohol Use History: None Reported Past Drug Use History: None Reported - Past Family History Father Family Medical History: Hypertension Brother(s) Family Medical History: Cancer Additional Family Medical History / Comment(s): 2 brothers of cancer. Medications and Allergies Home Medications Medication Instructions Recorded Confirmed Type Aspirin EC [Ecotrin Low Dose] 81 mg PO DAILY 08/04/21 02/15/24 History Dialyvite 1 tab PO 08/04/21 02/15/24 History Sevelamer Carbonate 1,600 mg PO TID-W/MEALS 08/28/22 02/15/24 History levOCARNitine [Levocarnitine] 330 mg PO HS 01/15/23 02/15/24 History Atorvastatin [Lipitor] 20 mg PO DAILY 05/16/23 02/15/24 History Furosemide [Lasix] 40 mg PO BID 05/16/23 02/15/24 History Sildenafil [Revatio] 20 mg PO BID 05/16/23 02/15/24 History Warfarin [Coumadin] 2 mg PO MOTUWETHFR@209901/10/24 02/15/24 History Omeprazole 20 mg PO HS 02/15/24 02/15/24 History Warfarin [Coumadin] 3 mg PO SUSA@209902/15/24 02/15/24 History carvediloL [Coreg] 3.125 mg PO BID 02/15/24 02/15/24 History traZODone HCL [Desyrel] 50 mg PO HS 02/15/24 02/15/24 History Allergies Allergy/AdvReac Type Severity Reaction Status Date / Time No Known Allergies Allergy Verified 02/15/24 14:20 Physical Exam Vitals: Vital Signs Temp Pulse Pulse Pulse Pulse Resp BP 02/16/24 12:00 97.5 F L 66 66 60 16 02/16/24 08:00 97.7 F 65 83 60 16 02/16/24 04:26 60 18 108/53 02/16/24 02:00 98.1 F 60 18 110/68 02/16/24 01:40 60 15 129/68 02/16/24 01:30 98.1 F 60 16 129/68 02/16/24 01:00 98.1 F 60 15 121/59 02/16/24 00:30 98 F 60 16 121/60 02/16/24 00:00 98.0 F 61 16 128/63 02/15/24 23:45 97.7 F 60 18 116/52 02/15/24 23:31 97.9 F 60 20 116/55 02/15/24 23:30 97.7 F 61 18 116/55 02/15/24 23:15 97.9 F 60 20 116/56 02/15/24 23:10 97.9 F 59 L 16 114/53 BP BP BP Pulse Ox 02/16/24 12:00 107/60 94/49 117/61 100 02/16/24 08:00 126/65 144/70 112/54 100 02/16/24 04:26 99 02/16/24 02:00 100 02/16/24 01:40 100 02/16/24 01:30 100 02/16/24 01:00 100 02/16/24 00:30 100 02/16/24 00:00 02/15/24 23:45 98 02/15/24 23:31 100 02/15/24 23:30 02/15/24 23:15 100 02/15/24 23:10 Intake and Output 02/16/24 02/16/24 02/16/24 06:59 14:59 22:59 Intake Total 310 550 Balance 310 550 Intake: Intake, IV Titration 300 Amount Azithromycin 500 mg In 250 Sodium Chloride 0.9% 250 ml @ 250 mls/hr IVPB ONCE STA Rx#:[id number] cefTRIAXone 2 gm In 50 Sodium Chloride 0.9% 50 ml @ 100 mls/hr IVPB ONCE STA Rx#:[id number] Oral 250 Blood Product 310 Rc As-1 Unit 310 [id number] General: The patient is awake and alert, in no distress, and does not appear acutely ill. On 2 L nasal cannula O2 sats is 100% on room air his O2 saturation was 100% old Skin: Skin is warm and dry and no rashes or lesions are noted. Eye: Pupils are equal, round and reactive to light, extra-ocular movements are intact; there is normal conjunctiva bilaterally. Ears, nose, mouth and throat: There are moist mucous membranes and no oral lesions. Neck: The neck is supple, there is no tenderness or JVD. Cardiovascular: There is a regular rate and rhythm. No murmur, rub or gallop is appreciated. Respiratory: Diminished breath sounds at the bases no crackles rhonchi or wheezes Gastrointestinal: Soft, non-distended, non-tender abdomen without masses or organomegaly noted. There is no rebound or guarding present. Bowel sounds are unremarkable. Back: There is no tenderness to palpation in the midline. There is no obvious deformity. Musculoskeletal: Normal ROM, no tenderness, There is no pedal edema. There is no calf tenderness or swelling. No cords were appreciated. Neurological: Patient seems to be confused, not a great historian, lethargic, and slow Psychiatric: Could not assess because of his mental status Results - Laboratory Findings CBC and BMP: 02/16/24 10:14 02/16/24 10:14 PT/INR, D-dimer PT 58.0 sec (10.0-12.5) H 02/16/24 10:14 INR 5.9 (<1.2) H* 02/16/24 10:14 Abnormal lab findings: Abnormal Labs 02/15/24 02/15/24 02/15/24 15:39 15:39 15:39 RBC 2.06 L Hgb 6.9 L* D Hct 20.6 L MCV 100.2 H RDW 17.0 H Lymphocytes # 0.9 L PT 70.5 H INR 7.2 H* APTT 46.5 H Sodium 135 L Chloride 97 L Carbon Dioxide 21 L BUN 53 H Creatinine 5.29 H Glucose Plasma Lactic Acid Eric Calcium 8.3 L Total Protein Crossmatch 02/15/24 02/15/24 02/15/24 15:39 17:05 19:07 RBC Hgb Hct MCV RDW Lymphocytes # PT INR APTT Sodium Chloride Carbon Dioxide BUN Creatinine Glucose Plasma Lactic Acid Eric 2.7 H* 3.1 H* Calcium Total Protein Crossmatch See Detail 02/15/24 02/16/24 02/16/24 22:00 01:22 10:14 RBC 2.46 L Hgb 8.0 L Hct 24.8 L MCV 101.0 H RDW 17.7 H Lymphocytes # PT INR APTT Sodium Chloride Carbon Dioxide BUN Creatinine Glucose Plasma Lactic Acid Eric 5.2 H* 3.0 H* Calcium Total Protein Crossmatch 02/16/24 02/16/24 10:14 10:14 RBC Hgb Hct MCV RDW Lymphocytes # PT 58.0 H INR 5.9 H* APTT Sodium 135 L Chloride 97 L Carbon Dioxide BUN 60 H Creatinine 6.34 H Glucose 134 H Plasma Lactic Acid Eric Calcium 8.1 L Total Protein 5.8 L Crossmatch - Diagnostic Findings Chest x-ray: image reviewed (As noted in HPI) Additional studies: CT brain showed no evidence of active disease, no intracerebral bleed, no CVA Assessment and Plan Assessment: Impression: Possible right lower lobe pneumonia, community-acquired although clinically the patient does not have symptoms to suggest pneumonia but he does have abnormal chest x-ray consistent with right lower lobe pneumonia, considering his mental status I would be a bit concerned about the possibility of aspiration pneumonia. End-stage renal disease, on hemodialysis Chronic diastolic congestive heart failure with preserved ejection fraction however the patient does have moderate to severe mitral valve disease contributing to his heart failure. Supratherapeutic INR hence Coumadin is on hold, patient did receive vitamin K. Benign essential hypertension with chronic kidney disease. Chronic atrial fibrillation History of degenerative joint disease Chronic anemia, however considering his elevated INR, acute blood loss anemia superimposed on on chronic anemia is not entirely ruled out. Recommendation: Continue present antibiotics Consider swallow evaluation on this patient Continue to hold Coumadin for now until INR level is below 3 Watch closely for any signs of bleeding Repeat chest x-ray in the next couple of days Back on hemodialysis schedule as per nephrology on the case Will continue to follow Time with Patient: Greater than 30
--- NOTE | 2024-02-16 22:04 | P.CONS ---
History of Present Illness - Reason for Consult Consult date: 02/16/24 Pneumonia Requesting physician: Colby Mcgregor - Chief Complaint Dizziness weakness and cough x few days - History of Present Illness Patient is a 79-year-old male with a past medical history significant for atrial fibrillation end-stage renal disease on dialysis patient has been brought into the hospital last evening for evaluation of lightheadedness and dizziness and this patient symptom has been getting worse for the last 1 week also have a significant amount of nosebleed over the last 1 week as well as intermittent nausea no vomiting and feeling weak while the patient was brought into the hospital patient denies having any headache or URI symptoms denies any chest pain or shortness with occasional cough but no sputum production nausea no vomiting no abdominal pain no diarrhea on presentation to the hospital the patient was afebrile and no fever have been recorded subsequently patient was not tachycardic or hypotensive not hypoxic he has no O2 sats on room air has been documented currently on 2 L nasal cannula oxygen patient did have a white count of 9.0 hemoglobin was low at 6.9 INR of 7.2 on admission BUN and creatinine has been elevated lactic acid was elevated liver enzymes are normal influenza RSV COVID testing has been negative patient did have a chest x-ray airspace opacity right lung base correlate for developing pneumonia prompting this consultation patient has been empirically started on Rocephin and Zithromax Review of Systems Positive point and negatives has been mentioned in the HPI, complete review of systems was performed and all other systems are negative Past Medical History Past Medical History: Atrial Fibrillation, Dialysis, Eye Disorder Additional Past Medical History / Comment(s): heart murmur, Kidney Failure- Dialysis MOWEFR-has little urine output,approx twice per day,pt thinks may be on fluid restrictions checking with dialysis on 01-16-23 to confirm how much fluids per day he can have. Cataracts. History of Any Multi-Drug Resistant Organisms: None Reported Past Surgical History: Joint Replacement, Pacemaker Additional Past Surgical History / Comment(s): Cardiac stents, right hip replacement,left upper arm av fistula Past Anesthesia/Blood Transfusion Reactions: No Reported Reaction Additional Past Anesthesia/Blood Transfusion Reaction / Comm: no problems with prior blood transfusion Type of Cardiac Device: Unknown Device Placement Date:: 2010 Past Psychological History: No Psychological Hx Reported Smoking Status: Never smoker Past Alcohol Use History: None Reported Past Drug Use History: None Reported - Past Family History Father Family Medical History: Hypertension Brother(s) Family Medical History: Cancer Additional Family Medical History / Comment(s): 2 brothers of cancer. Medications and Allergies Home Medications Medication Instructions Recorded Confirmed Type Aspirin EC [Ecotrin Low Dose] 81 mg PO DAILY 08/04/21 02/15/24 History Dialyvite 1 tab PO HS 08/04/21 02/15/24 History Sevelamer Carbonate 1,600 mg PO TID-W/MEALS 08/28/22 02/15/24 History levOCARNitine [Levocarnitine] 330 mg PO HS 01/15/23 02/15/24 History Atorvastatin [Lipitor] 20 mg PO DAILY 05/16/23 02/15/24 History Furosemide [Lasix] 40 mg PO BID 05/16/23 02/15/24 History Sildenafil [Revatio] 20 mg PO BID 05/16/23 02/15/24 History Warfarin [Coumadin] 2 mg PO MOTUWETHFR@2100 01/10/24 02/15/24 History Omeprazole 20 mg PO HS 02/15/24 02/15/24 History Warfarin [Coumadin] 3 mg PO SUSA@2100 02/15/24 02/15/24 History carvediloL [Coreg] 3.125 mg PO BID 02/15/24 02/15/24 History traZODone HCL [Desyrel] 50 mg PO HS 02/15/24 02/15/24 History Cefuroxime [Ceftin] 250 mg PO DAILY 2 Days #2 tab 02/20/24 Rx Docusate [Colace] 100 mg PO DAILY PRN cap 02/20/24 Rx Allergies Allergy/AdvReac Type Severity Reaction Status Date / Time No Known Allergies Allergy Verified 02/15/24 14:20 Physical Exam Vitals: Vital Signs Temp Pulse Pulse Pulse Pulse Resp BP 02/16/24 12:00 97.5 F L 66 66 60 16 02/16/24 08:00 97.7 F 65 83 60 16 02/16/24 04:26 60 18 108/53 02/16/24 02:00 98.1 F 60 18 110/68 02/16/24 01:40 60 15 129/68 02/16/24 01:30 98.1 F 60 16 129/68 02/16/24 01:00 98.1 F 60 15 121/59 02/16/24 00:30 98 F 60 16 121/60 02/16/24 00:00 98.0 F 61 16 128/63 02/15/24 23:45 97.7 F 60 18 116/52 02/15/24 23:31 97.9 F 60 20 116/55 02/15/24 23:30 97.7 F 61 18 116/55 02/15/24 23:15 97.9 F 60 20 116/56 02/15/24 23:10 97.9 F 59 L 16 114/53 BP BP BP Pulse Ox 02/16/24 12:00 107/60 94/49 117/61 100 02/16/24 08:00 126/65 144/70 112/54 100 02/16/24 04:26 99 02/16/24 02:00 100 02/16/24 01:40 100 02/16/24 01:30 100 02/16/24 01:00 100 02/16/24 00:30 100 02/16/24 00:00 02/15/24 23:45 98 02/15/24 23:31 100 02/15/24 23:30 02/15/24 23:15 100 02/15/24 23:10 Intake and Output 02/16/24 02/16/24 02/16/24 06:59 14:59 22:59 Intake Total 310 550 Balance 310 550 Intake: Intake, IV Titration 300 Amount Azithromycin 500 mg In 250 Sodium Chloride 0.9% 250 ml @ 250 mls/hr IVPB ONCE STA Rx#:[id number] cefTRIAXone 2 gm In 50 Sodium Chloride 0.9% 50 ml @ 100 mls/hr IVPB ONCE STA Rx#:[id number] Oral 250 Blood Product 310 Rc As-1 Unit 310 [id number] GENERAL DESCRIPTION: Elderly male lying in bed, no distress. No tachypnea or accessory muscle of respiration use. HEENT: Shows Pallor , no scleral icterus. Oral mucous membrane is dry. No pharyngeal erythema or thrush NECK: Trachea central, no thyromegaly. LUNGS: Unlabored breathing. Decreased breath sound the base HEART: S1, S2, regular rate and rhythm. No loud murmur ABDOMEN: Soft, no tenderness , guarding or rigidity, no organomegaly EXTREMITIES: No edema of feet. SKIN: No rash, no masses palpable. NEUROLOGICAL: The patient is slightly lethargic but arousable, mood and affect normal. Results CBC & Chem 7: 02/20/24 11:02 02/20/24 11:02 Labs: Abnormal Lab Results - Last 24 Hours (Table) 02/15/24 02/15/24 02/15/24 Range/Units 15:39 15:39 15:39 RBC 2.06 L (4.30-5.90) m/uL Hgb 6.9 L* D (13.0-17.5) gm/dL Hct 20.6 L (39.0-53.0) % MCV 100.2 H (80.0-100.0) fL RDW 17.0 H (11.5-15.5) % Lymphocytes # 0.9 L (1.0-4.8) k/uL PT 70.5 H (10.0-12.5) sec INR 7.2 H* (<1.2) APTT 46.5 H (22.0-30.0) sec Sodium 135 L (137-145) mmol/L Chloride 97 L (98-107) mmol/L Carbon Dioxide 21 L (22-30) mmol/L BUN 53 H (9-20) mg/dL Creatinine 5.29 H (0.66-1.25) mg/dL Glucose (74-99) mg/dL Plasma Lactic Acid Eric (0.7-2.0) mmol/L Calcium 8.3 L (8.4-10.2) mg/dL Total Protein (6.3-8.2) g/dL Crossmatch 02/15/24 02/15/24 02/15/24 Range/Units 15:39 17:05 19:07 RBC (4.30-5.90) m/uL Hgb (13.0-17.5) gm/dL Hct (39.0-53.0) % MCV (80.0-100.0) fL RDW (11.5-15.5) % Lymphocytes # (1.0-4.8) k/uL PT (10.0-12.5) sec INR (<1.2) APTT (22.0-30.0) sec Sodium (137-145) mmol/L Chloride (98-107) mmol/L Carbon Dioxide (22-30) mmol/L BUN (9-20) mg/dL Creatinine (0.66-1.25) mg/dL Glucose (74-99) mg/dL Plasma Lactic Acid Eric 2.7 H* 3.1 H* (0.7-2.0) mmol/L Calcium (8.4-10.2) mg/dL Total Protein (6.3-8.2) g/dL Crossmatch See Detail 02/15/24 02/16/24 02/16/24 Range/Units 22:00 01:22 10:14 RBC 2.46 L (4.30-5.90) m/uL Hgb 8.0 L (13.0-17.5) gm/dL Hct 24.8 L (39.0-53.0) % MCV 101.0 H (80.0-100.0) fL RDW 17.7 H (11.5-15.5) % Lymphocytes # (1.0-4.8) k/uL PT (10.0-12.5) sec INR (<1.2) APTT (22.0-30.0) sec Sodium (137-145) mmol/L Chloride (98-107) mmol/L Carbon Dioxide (22-30) mmol/L BUN (9-20) mg/dL Creatinine (0.66-1.25) mg/dL Glucose (74-99) mg/dL Plasma Lactic Acid Eric 5.2 H* 3.0 H* (0.7-2.0) mmol/L Calcium (8.4-10.2) mg/dL Total Protein (6.3-8.2) g/dL Crossmatch 02/16/24 02/16/24 Range/Units 10:14 10:14 RBC (4.30-5.90) m/uL Hgb (13.0-17.5) gm/dL Hct (39.0-53.0) % MCV (80.0-100.0) fL RDW (11.5-15.5) % Lymphocytes # (1.0-4.8) k/uL PT 58.0 H (10.0-12.5) sec INR 5.9 H* (<1.2) APTT (22.0-30.0) sec Sodium 135 L (137-145) mmol/L Chloride 97 L (98-107) mmol/L Carbon Dioxide (22-30) mmol/L BUN 60 H (9-20) mg/dL Creatinine 6.34 H (0.66-1.25) mg/dL Glucose 134 H (74-99) mg/dL Plasma Lactic Acid Eric (0.7-2.0) mmol/L Calcium 8.1 L (8.4-10.2) mg/dL Total Protein 5.8 L (6.3-8.2) g/dL Crossmatch Assessment and Plan (1) Pneumonia Status: Acute Code(s): J18.9 - PNEUMONIA, UNSPECIFIED ORGANISM SNOMED Code(s): 116451880 Plan: 1patient presented hospital with generalized weakness also complaining of nosebleed in this patient on admission to the hospital did have significant elevated INR may be responsible for some of his symptoms however the patient also have a chest x-ray with right sided infiltrate suspicious for pneumonia. 2we will check CRP procalcitonin sputum for Gram stain and culture. 3patient to continue with Rocephin and Zithromax while waiting for the workup to be completed. We will follow on clinical condition and cultures to further adjust medication if needed Thank you for this consultation we will follow the patient along with you Dictation was produced using [email or web address] dictation software. please excuse any grammatical, word or spelling errors. Time with Patient: Greater than 30
--- NOTE | 2024-02-17 00:29 | PN ---
PROGRESS NOTE DATE OF SERVICE: 02/16/2024 SUBJECTIVE: This is an 79-year-old gentleman, admitted with significant weakness. He is being closely monitored. The patient's hemoglobin was very low yesterday. Hemoglobin improved to 8 today. INR was also 7.2, today is 5.9. The patient had received 1 transfusion. PAST MEDICAL HISTORY: Reviewed. REVIEW OF SYSTEMS: Fourteen-point review is negative. CURRENT MEDICATIONS: Reviewed include Tylenol, Lipitor. PHYSICAL EXAM: VITAL SIGNS: Pulse is 66, blood pressure 107/60, slight orthostatic changes, respirations 20. HEENT: Conjunctivae pale. CARDIOVASCULAR: S1, S2. RESPIRATIONS: Clear to auscultation. ABDOMEN: Soft. NERVOUS SYSTEM: No focal deficit. LABORATORY DATA: Hemoglobin 8. Rest of the labs are noted. ASSESSMENT: 1. Severe weakness and tiredness, possibly secondary to anemia, multifactorial. 2. Anemia, rule out gastrointestinal bleed. 3. Coumadin coagulopathy. 4. Chronic kidney disease on hemodialysis. 5. Atrial fibrillation. 6. History of degenerative joint disease. 7. Multiple complex medical issues. 8. Mild orthostatic hypotension. RECOMMENDATION: This 79-year-old gentleman with, 1. Multiple complex medical history. Monitor the patient closely. Continue the current medications. Continue symptomatic treatment otherwise. At this time, I would recommend replacement. 2. Possible right lower lobe pneumonia. We will continue to monitor. I would recommend Infectious Disease evaluation and possible Surgical or Gastroenterology evaluation also for possible endoscopies. Hold Coumadin at this time. 3. Coumadin coagulopathy. Prognosis guarded. Discussed with family at length and further recommendations. Will see orders for further details. MMODL / IJN: [id number] /
[2024-02-17 03:51] LABS: Anisocytosis Slight; Basophils % (A) 0 %; Eosinophils # (A) 0.1 k/uL (0-0.7); Eosinophils % (A) 2 %; HGB 7.1 gm/dL (13.0-17.5); Lymphocytes # (A) 0.9 k/uL (1.0-4.8); Lymphocytes % (A) 13 %; MCH 31.5 pg (25.0-35.0); MCV 101.5 fL (80.0-100.0); Macrocytosis Moderate; Mean Platelet Volume 7.5; Monocytes # (A) 0.5 k/uL (0-1.0); Monocytes % (A) 7 %; Neutrophils # (A) 4.9 k/uL (1.3-7.7); Neutrophils % (A) 75 %; Platelet Count 232 k/uL (150-450); Poikilocytosis Slight; RBC 2.27 m/uL (4.30-5.90); RDW 18.2 % (11.5-15.5); WBC 6.5 k/uL (3.8-10.6)
[2024-02-17 04:15] LABS: African American GFR (CKD) 7 (>60 ml/min/1.73 sqM); Anion Gap 13 mmol/L; Blood Urea Nitrogen 69 mg/dL (9-20); C Reactive Protein 2.1 mg/dL (<1.0); Calcium 8.2 mg/dL (8.4-10.2); Carbon Dioxide 24 mmol/L (22-30); Chloride 96 mmol/L (98-107); Glucose 84 mg/dL (74-99); Non-African American GFR(CKD) 6 (>60 ml/min/1.73 sqM); Potassium 4.2 mmol/L (3.5-5.1); Sodium 133 mmol/L (137-145)
[2024-02-17 07:49] LABS: Glucose,Whole Blood 110 mg/dL (70-110)
[2024-02-17 09:46] LABS: % Iron Saturation 85.71 (15.00-50.00)
--- NOTE | 2024-02-17 11:48 | P.PN ---
Subjective patient is seen for follow-up for end-stage renal disease. No significant complaints today. Patient is seen on hemodialysis. Objective - Vital Signs Vital signs: Vital Signs Temp 97.8 F 02/17/24 10:03 Pulse 60 02/17/24 11:26 Resp 18 02/17/24 11:26 BP 125/86 02/17/24 11:26 Pulse Ox 98 02/17/24 11:26 FiO2 Intake & Output 02/16/24 02/17/24 02/17/24 18:59 06:59 18:59 Intake Total 550 Balance 550 Intake: Intake, IV Titration 300 Amount Azithromycin 500 mg In 250 Sodium Chloride 0.9% 250 ml @ 250 mls/hr IVPB ONCE STA Rx#:[id number] cefTRIAXone 2 gm In 50 Sodium Chloride 0.9% 50 ml @ 100 mls/hr IVPB ONCE STA Rx#:[id number] Oral 250 - Exam patient is awake, comfortable, no acute distress Examination of the heart S1 and S2 Examination of the lungs bilateral breath sounds are heard Abdomen is soft nontender Examination of lower extremities shows no significant edema. - Labs CBC & Chem 7: 02/17/24 03:03 02/17/24 03:03 Labs: Abnormal Lab Results - Last 24 Hours (Table) 02/16/24 02/17/24 02/17/24 Range/Units 10:14 03:03 03:03 RBC 2.27 L (4.30-5.90) m/uL Hgb 7.1 L (13.0-17.5) gm/dL Hct 23.0 L (39.0-53.0) % MCV 101.5 H (80.0-100.0) fL RDW 18.2 H (11.5-15.5) % Lymphocytes # 0.9 L (1.0-4.8) k/uL Sodium 133 L (137-145) mmol/L Chloride 96 L (98-107) mmol/L BUN 69 H (9-20) mg/dL Creatinine 7.26 H* (0.66-1.25) mg/dL Calcium 8.2 L (8.4-10.2) mg/dL Iron 216 H (65-175) UG/DL % Saturation 85.71 H (15.00-50.00) Transferrin 180.0 L (204.0-354.0) mg/dL C-Reactive Protein 2.1 H (<1.0) mg/dL Procalcitonin (0.02-0.09) ng/mL 02/17/24 Range/Units 03:03 RBC (4.30-5.90) m/uL Hgb (13.0-17.5) gm/dL Hct (39.0-53.0) % MCV (80.0-100.0) fL RDW (11.5-15.5) % Lymphocytes # (1.0-4.8) k/uL Sodium (137-145) mmol/L Chloride (98-107) mmol/L BUN (9-20) mg/dL Creatinine (0.66-1.25) mg/dL Calcium (8.4-10.2) mg/dL Iron (65-175) UG/DL % Saturation (15.00-50.00) Transferrin (204.0-354.0) mg/dL C-Reactive Protein (<1.0) mg/dL Procalcitonin 0.62 H (0.02-0.09) ng/mL Assessment and Plan Assessment: 1. End-stage renal disease maintained on hemodialysis on Saturday schedule. 2. Chronic systolic CHF with ejection fraction of 50% with moderate to severe mitral and tricuspid regurgitation. 3. Symptomatic Anemia with CKD. Hb 6.9 on presentation. 4. Supratheraputic INR s/p Vit K. 5. Chronic disease mineral bone disease maintained on Renvela. 6. Hypertension with CKD 7. Epistaxis with elevated INR Plan: maintain hemodialysis on Saturday witnessed a Saturday schedule. Add Aranesp
--- NOTE | 2024-02-17 13:39 | P.GSCN ---
History of Present Illness Consult date: 02/17/24 History of present illness: CHIEF COMPLAINT: Weakness HISTORY OF PRESENT ILLNESS: This is a 79-year-old male who presented to the hospital with lightheadedness and weakness. Patient is a poor historian. Per ER charting patient has had significant amount of nosebleeds throughout this week. He did have a nosebleed yesterday. Patient is on Coumadin at home for his atrial fibrillation. INR was elevated at 7.2. He did receive vitamin K. Hemoglobin on admission was 6.9 he has received 1 unit of blood. Hemoglobin did go up to 8 and is now at 7.1. Patient also with a history of end-stage renal disease on hemodialysis. PAST MEDICAL HISTORY: Atrial fibrillation, end-stage renal disease on hemodialysis, coronary disease with cardiac stents PAST SURGICAL HISTORY: See below MEDICATIONS: See below ALLERGIES: See below SOCIAL HISTORY: No illicit drug use. REVIEW OF SYSTEMS: CONSTITUTIONAL: Denies fever or chills. HEENT: Denies blurred vision, vision changes, or eye pain. Denies hemoptysis CARDIOVASCULAR: Denies chest pain or pressure. RESPIRATORY: No shortness of breath. GASTROINTESTINAL: See HPI for pertinent findings HEMATOLOGIC: Denies bleeding disorders. GENITOURINARY: Denies any blood in urine or increased urinary frequency. SKIN: Denies pruitis. Denies rash. PHYSICAL EXAM: VITAL SIGNS: Reviewed GENERAL: Well-developed in no acute distress. HEENT: No sclera icterus. Extraocular movements grossly intact. Moist buccal mucosa. Head is atraumatic, normocephalic. No nasal drainage. ABDOMEN: Soft. Nondistended. Nontender NEUROLOGIC: Awake and alert. Pleasantly confused LABORATORY DATA: WBC 6.5 Hgb 6.9 up to 8 down to 7.1 platelets 232 INR 7.2 down to 5.9 Sodium is 133 potassium is 4.2 creatinine 7.26 Fecal occult blood negative IMAGING: ASSESSMENT: 1. Symptomatic anemia with epistaxis 2. Coumadin toxicity PLAN: -Anemia likely related to patient's Coumadin toxicity contributing to epistaxis. Recommend ENT consult. -Continue to monitor PT/INR and give vitamin K as needed -Continue to monitor hemoglobin -Continue to monitor for any signs or symptoms of bleeding -No surgical intervention planned Physician Superintendent System Operation note has been reviewed by physician. Signing provider agrees with the documented findings, assessment, and plan of care. Past Medical History Past Medical History: Atrial Fibrillation, Dialysis, Eye Disorder Additional Past Medical History / Comment(s): heart murmur, Kidney Failure- Dialysis MOWEFR-has little urine output,approx twice per day,pt thinks may be on fluid restrictions checking with dialysis on 01-16-23 to confirm how much fluids per day he can have. Cataracts. History of Any Multi-Drug Resistant Organisms: None Reported Past Surgical History: Joint Replacement, Pacemaker Additional Past Surgical History / Comment(s): Cardiac stents, right hip replacement,left upper arm av fistula Past Anesthesia/Blood Transfusion Reactions: No Reported Reaction Additional Past Anesthesia/Blood Transfusion Reaction / Comm: no problems with prior blood transfusion Type of Cardiac Device: Unknown Device Placement Date:: 2010 Past Psychological History: No Psychological Hx Reported Smoking Status: Never smoker Past Alcohol Use History: None Reported Past Drug Use History: None Reported - Past Family History Father Family Medical History: Hypertension Brother(s) Family Medical History: Cancer Additional Family Medical History / Comment(s): 2 brothers of cancer. Medications and Allergies Home Medications Medication Instructions Recorded Confirmed Type Aspirin EC [Ecotrin Low Dose] 81 mg PO DAILY 08/04/21 02/15/24 History Dialyvite 1 tab PO HS 08/04/21 02/15/24 History Sevelamer Carbonate 1,600 mg PO TID-W/MEALS 08/28/22 02/15/24 History levOCARNitine [Levocarnitine] 330 mg PO HS 01/15/23 02/15/24 History Atorvastatin [Lipitor] 20 mg PO DAILY 05/16/23 02/15/24 History Furosemide [Lasix] 40 mg PO BID 05/16/23 02/15/24 History Sildenafil [Revatio] 20 mg PO BID 05/16/23 02/15/24 History Warfarin [Coumadin] 2 mg PO MOTUWETHFR@209901/10/24 02/15/24 History Omeprazole 20 mg PO HS 02/15/24 02/15/24 History Warfarin [Coumadin] 3 mg PO SUSA@209902/15/24 02/15/24 History carvediloL [Coreg] 3.125 mg PO BID 02/15/24 02/15/24 History traZODone HCL [Desyrel] 50 mg PO HS 02/15/24 02/15/24 History Allergies Allergy/AdvReac Type Severity Reaction Status Date / Time No Known Allergies Allergy Verified 02/15/24 14:20 Surgical - Exam Vital Signs Temp Pulse Resp BP Pulse Ox 98.1 F 60 20 135/90 97 02/15/24 14:17 02/15/24 14:17 02/15/24 14:17 02/15/24 14:17 02/15/24 14:17 Results - Labs 02/17/24 03:03 02/17/24 03:03 Abnormal Lab Results - Last 24 Hours (Table) 02/16/24 02/17/24 02/17/24 Range/Units 10:14 03:03 03:03 RBC 2.27 L (4.30-5.90) m/uL Hgb 7.1 L (13.0-17.5) gm/dL Hct 23.0 L (39.0-53.0) % MCV 101.5 H (80.0-100.0) fL RDW 18.2 H (11.5-15.5) % Lymphocytes # 0.9 L (1.0-4.8) k/uL Sodium 133 L (137-145) mmol/L Chloride 96 L (98-107) mmol/L BUN 69 H (9-20) mg/dL Creatinine 7.26 H* (0.66-1.25) mg/dL Calcium 8.2 L (8.4-10.2) mg/dL Iron 216 H (65-175) UG/DL % Saturation 85.71 H (15.00-50.00) Transferrin 180.0 L (204.0-354.0) mg/dL C-Reactive Protein 2.1 H (<1.0) mg/dL Procalcitonin (0.02-0.09) ng/mL 02/17/24 Range/Units 03:03 RBC (4.30-5.90) m/uL Hgb (13.0-17.5) gm/dL Hct (39.0-53.0) % MCV (80.0-100.0) fL RDW (11.5-15.5) % Lymphocytes # (1.0-4.8) k/uL Sodium (137-145) mmol/L Chloride (98-107) mmol/L BUN (9-20) mg/dL Creatinine (0.66-1.25) mg/dL Calcium (8.4-10.2) mg/dL Iron (65-175) UG/DL % Saturation (15.00-50.00) Transferrin (204.0-354.0) mg/dL C-Reactive Protein (<1.0) mg/dL Procalcitonin 0.62 H (0.02-0.09) ng/mL Diabetes panel 02/17/24 Range/Units 03:03 Sodium 133 L (137-145) mmol/L Potassium 4.2 (3.5-5.1) mmol/L Chloride 96 L (98-107) mmol/L Carbon Dioxide 24 (22-30) mmol/L BUN 69 H (9-20) mg/dL Creatinine 7.26 H* (0.66-1.25) mg/dL Glucose 84 (74-99) mg/dL Calcium 8.2 L (8.4-10.2) mg/dL Calcium panel 02/17/24 Range/Units 03:03 Calcium 8.2 L (8.4-10.2) mg/dL Pituitary panel 02/17/24 Range/Units 03:03 Sodium 133 L (137-145) mmol/L Potassium 4.2 (3.5-5.1) mmol/L Chloride 96 L (98-107) mmol/L Carbon Dioxide 24 (22-30) mmol/L BUN 69 H (9-20) mg/dL Creatinine 7.26 H* (0.66-1.25) mg/dL Glucose 84 (74-99) mg/dL Calcium 8.2 L (8.4-10.2) mg/dL Adrenal panel 02/17/24 Range/Units 03:03 Sodium 133 L (137-145) mmol/L Potassium 4.2 (3.5-5.1) mmol/L Chloride 96 L (98-107) mmol/L Carbon Dioxide 24 (22-30) mmol/L BUN 69 H (9-20) mg/dL Creatinine 7.26 H* (0.66-1.25) mg/dL Glucose 84 (74-99) mg/dL Calcium 8.2 L (8.4-10.2) mg/dL
--- NOTE | 2024-02-17 13:45 | P.PN ---
Subjective Progress Note Date: 02/17/24 Principal diagnosis: Anemia. This is an 79-year-old white male with history of rectal problems including end- stage renal disease, on hemodialysis, missed his last hemodialysis last Saturday but not on Saturday. Patient presented to the ER with chronic weakness on and off for the last 6 months. Patient also had intermittent episodes of nausea and vomiting, feels generally weak. Patient denies any melena, denies any hematemesis, however he did have history of nosebleeds. Workup in the ER revealed that his INR is elevated at 5.9, patient is on Coumadin it also revealed a hemoglobin of 6.9, chest x-ray showed evidence of right lower lobe pneumonia, patient is not a great historian, denies any cough denies any fever or chills, but nonetheless he feels generally weak. Considering his abnormal chest x-ray, this consult was initiated. Patient has been seen already by ne phrology and he was seen by the admitting physician, already placed on antibiotics in the form of Rocephin and Zithromax. Again the patient is a very poor historian, seems to be confused, and he could not give me a very adequate history when asked if short of breath or if he is having any cough symptoms patient denied. Progress note dated February 17, 2024. The patient is seen today in the emergency department, room 25. The patient was admitted with a diagnosis of anemia, end-stage renal disease currently on hemodialysis, and weakness. The patient was lying in bed, and wanted to sit up to eat his breakfast. He was extremely weak, and myself and my nurse practitioner had to help him sit up. He is currently on 2 L of oxygen. Chest x-ray is showing possible pneumonia right lower lobe. He was placed on Rocephin and azithromycin. We did put in for a procalcitonin level. Current laboratory data includes a white count 6.5, hemoglobin 7.1, hematocrit 23, and a platelet count of 232,000. The patient's PTT was 58 with an INR of 5.9. Sodium 133, potassium 4.2, chloride 96, CO2 24, BUN 69, and creatinine 7.26. Calcium is 8.2. C-reactive protein is 2.1. Procalcitonin level is elevated at 0.62. Blood cultures are currently pending are negative. Chest x-ray shows some mild pulmonary vascular congestion, and some patchy opacities in the right base. Objective - Vital Signs Vital signs: Vital Signs Temp 97.8 F 02/17/24 10:03 Pulse 60 02/17/24 12:44 Resp 18 02/17/24 12:44 BP 112/56 02/17/24 12:44 Pulse Ox 98 02/17/24 12:44 FiO2 Intake & Output 02/16/24 02/17/24 02/17/24 18:59 06:59 18:59 Intake Total 550 Balance 550 Intake: Intake, IV Titration 300 Amount Azithromycin 500 mg In 250 Sodium Chloride 0.9% 250 ml @ 250 mls/hr IVPB ONCE STA Rx#:[id number] cefTRIAXone 2 gm In 50 Sodium Chloride 0.9% 50 ml @ 100 mls/hr IVPB ONCE STA Rx#:[id number] Oral 250 - Exam No acute distress, oriented 3. The patient is very profoundly weak. He continues on oxygen at 2 L. HEENT examination is grossly unremarkable. Mucous membranes are moist. No oral lesions. Neck supple. Full range of motion. No adenopathy thyromegaly or neck vein distention. Cardiovascular examination reveals regular rhythm rate. S1-S2 normal. No S3 or S4. No discernible murmur noted. Heart rate 60 bpm. Lungs reveal scattered crackles. No wheezes or rhonchi. Saturations are 98% on 2 L. Abdomen soft bowel sounds are heard. No masses or tenderness. Extremities are intact. No cyanosis clubbing or edema. Skin is without rash or lesion. Neurologic examination is brief but nonfocal. - Labs CBC & Chem 7: 02/17/24 03:03 02/17/24 03:03 Labs: Abnormal Lab Results - Last 24 Hours (Table) 02/16/24 02/17/24 02/17/24 Range/Units 10:14 03:03 03:03 RBC 2.27 L (4.30-5.90) m/uL Hgb 7.1 L (13.0-17.5) gm/dL Hct 23.0 L (39.0-53.0) % MCV 101.5 H (80.0-100.0) fL RDW 18.2 H (11.5-15.5) % Lymphocytes # 0.9 L (1.0-4.8) k/uL Sodium 133 L (137-145) mmol/L Chloride 96 L (98-107) mmol/L BUN 69 H (9-20) mg/dL Creatinine 7.26 H* (0.66-1.25) mg/dL Calcium 8.2 L (8.4-10.2) mg/dL Iron 216 H (65-175) UG/DL % Saturation 85.71 H (15.00-50.00) Transferrin 180.0 L (204.0-354.0) mg/dL C-Reactive Protein 2.1 H (<1.0) mg/dL Procalcitonin (0.02-0.09) ng/mL 02/17/24 Range/Units 03:03 RBC (4.30-5.90) m/uL Hgb (13.0-17.5) gm/dL Hct (39.0-53.0) % MCV (80.0-100.0) fL RDW (11.5-15.5) % Lymphocytes # (1.0-4.8) k/uL Sodium (137-145) mmol/L Chloride (98-107) mmol/L BUN (9-20) mg/dL Creatinine (0.66-1.25) mg/dL Calcium (8.4-10.2) mg/dL Iron (65-175) UG/DL % Saturation (15.00-50.00) Transferrin (204.0-354.0) mg/dL C-Reactive Protein (<1.0) mg/dL Procalcitonin 0.62 H (0.02-0.09) ng/mL Microbiology - Last 24 Hours (Table) 02/15/24 23:05 Blood Culture - Preliminary Blood 02/15/24 22:50 Blood Culture - Preliminary Blood Assessment and Plan Assessment: Possible right lower lobe pneumonia, community-acquired. Procalcitonin level is elevated. End-stage renal disease, currently on hemodialysis. Chronic diastolic CHF. Coumadin induced coagulopathy. Benign essential hypertension. History of chronic kidney disease. Chronic atrial fibrillation. History of degenerative joint disease. Anemia, likely related to anemia of chronic disease. Plan: Plan dated February 17, 2024. The patient continues on appropriate antibiotics, in the form of azithromycin and Rocephin. We will continue to follow make recommendations along the way. The patient's procalcitonin was elevated at 0.62. Labs, x-rays, and medications are reviewed. The patient is profoundly weak, and needed help sitting up in his bed. Labs, x-rays, and medications are reviewed. Prognosis is poor. The patient continues as a full code. Time with Patient: Less than 30
--- NOTE | 2024-02-17 15:06 | CDI ---
Documentation Clarification Form Date: 02/17/2024 02:35:25 PM From: Myra Nunn RN, CCDS Phone: [phone] Admit Date: 02/15/2024 07:28:00 PM Patient Name: Lionel Fair Visit Number: [id number] Discharge Date: ATTENTION: The Clinical Documentation Specialists (CDI) and [facility] Coding Staff appreciate your assistance in clarifying documentation. Please respond to the clarification below the line at the bottom and electronically sign. The CDI & [facility] Coding staff will review the response and follow-up if needed. Please note: Queries are made part of the Legal Health Record. If you have any questions, please contact the author of this message via ITS. Dr. Colby Mcgregor There is documentation of symptomatic anemia with epistaxis in the progress notes and the patient is on Coumadin. Based on this information and the findings below, is there an additional diagnosis that is clinically appropriate for this patient? History/Risk Factors: A fib on Coumadin, ESRD and CAD. Presented with weakness. Found to have Hgb 6.9. Admitted with symptomatic anemia. Clinical Indicators: 02/14 Hgb 6.9 02/14 PT/PTT/INR: 70.5-46.5-7.2 02/15 PT/INR: 58.0-5.9 ED: "Had multiple episodes of epistaxis earlier this week. Is on Coumadin." 02/15 IM: "Anemia, rule out gastrointestinal bleed. Coumadin coagulopathy." 02/15 Pulmonary: "History of epistaxis and nosebleeds. Supratherapeutic INR hence Coumadin is on hold, patient did receive vitamin K. Chronic anemia, however considering his elevated INR, acute blood loss anemia superimposed on chronic anemia is not entirely ruled out." 02/16 Surgery: "Anemia likely related to patient's Coumadin toxicity contributing to epistaxis." Treatment: IV Fluid; 1L 0.9NS IV bolus x1 on 02/14 Transfusion: 1 unit PRBC's on 02/14 Reversal agent: Vitamin K 2.5mg po x1 on 02/14 Is there an additional diagnosis that is clinically appropriate for this patient? [ ] Anemia due to epistaxis from Coumadin [ ] Coagulopathy due to Coumadin [ ] Other, please specify [ ] Unable to determine Coagulopathy due to Coumadin MTDD
--- NOTE | 2024-02-17 17:25 | P.PN ---
Subjective Progress Note Date: 02/17/24 This is an 79-year-old gentleman admitted with generalized weakness, Coumadin coagulopathy, epistaxis, anemia, end-stage renal disease on hemodialysis, chronic atrial fibrillation and multiple other medical issues. Scheduled for hemodialysis today. ER reported patient had multiple nosebleeds throughout the week, last one yesterday. stated he was having trouble standing, walking and performing his ADLs. No triggers reported, did notice that it worsens after hemodialysis. Patient on Coumadin for his atrial fibrillation at home, INR 7.2 on admission. Coumadin placed on hold, received vitamin K , decreased to 5.9 yesterday.received 1 unit packed RBCs yesterday for hemoglobin of 6.9 , increased to 8 and currently decreased to 7.1. General surgery consult in place for potential endoscopies. maintained on IV antibiotics of ceftriaxone and azithromycin for possible community-acquired pneumonia, right lower lobe. Procalcitonin level elevated, 0.62, CRP 2.1, afebrile, normal WBC. Preliminary blood cultures reporting no growth after 24 hours. Denies chest pain, palpitations or shortness of breath. Oxygen weaned off and maintaining O2 sats in the high 90s on room air.Evaluated by speech therapy, reporting no overt signs or symptoms of aspiration observed, recommended continuing regular diet thin liquids. Objective - Vital Signs Vital signs: Vital Signs Temp 97.8 F 02/17/24 10:03 Pulse 60 02/17/24 10:03 Resp 18 02/17/24 10:03 BP 130/62 02/17/24 10:03 Pulse Ox 97 02/17/24 10:03 FiO2 Intake & Output 02/16/24 02/17/24 02/17/24 18:59 06:59 18:59 Intake Total 550 Balance 550 Intake: Intake, IV Titration 300 Amount Azithromycin 500 mg In 250 Sodium Chloride 0.9% 250 ml @ 250 mls/hr IVPB ONCE STA Rx#:[id number] cefTRIAXone 2 gm In 50 Sodium Chloride 0.9% 50 ml @ 100 mls/hr IVPB ONCE STA Rx#:[id number] Oral 250 - Exam - Exam PHYSICAL EXAM: VITAL SIGNS: As above GENERAL: Alert and oriented 3, sitting up in chair,NAD HEENT: Normocephalic, Conjunctivae normal. eyes normal. Currently no epistaxis NECK: Supple, No JVD. CARDIOVASCULAR: S1, S2 regular. Systolic murmur RESPIRATION: Unlabored, equal air entry, bilateral lungs diminished ABDOMEN: Soft, nontender . No guarding. no masses palpable. Bowel sounds heard. EXTREMITIES: no edema, no calf tenderness, NERVOUS SYSTEM: Cranial N 2-12 grossly normal. No focal deficits. Strength and sensation grossly intact. Skin: Warm and dry, pressure sores x 2 on right buttocks - Labs CBC & Chem 7: 02/17/24 03:03 02/17/24 03:03 Labs: Abnormal Lab Results - Last 24 Hours (Table) 02/16/24 02/16/24 02/17/24 Range/Units 10:14 10:14 03:03 RBC 2.27 L (4.30-5.90) m/uL Hgb 7.1 L (13.0-17.5) gm/dL Hct 23.0 L (39.0-53.0) % MCV 101.5 H (80.0-100.0) fL RDW 18.2 H (11.5-15.5) % Lymphocytes # 0.9 L (1.0-4.8) k/uL PT 58.0 H (10.0-12.5) sec INR 5.9 H* (<1.2) Sodium (137-145) mmol/L Chloride (98-107) mmol/L BUN (9-20) mg/dL Creatinine (0.66-1.25) mg/dL Calcium (8.4-10.2) mg/dL Iron 216 H (65-175) UG/DL % Saturation 85.71 H (15.00-50.00) Transferrin 180.0 L (204.0-354.0) mg/dL C-Reactive Protein (<1.0) mg/dL Procalcitonin (0.02-0.09) ng/mL 02/17/24 02/17/24 Range/Units 03:03 03:03 RBC (4.30-5.90) m/uL Hgb (13.0-17.5) gm/dL Hct (39.0-53.0) % MCV (80.0-100.0) fL RDW (11.5-15.5) % Lymphocytes # (1.0-4.8) k/uL PT (10.0-12.5) sec INR (<1.2) Sodium 133 L (137-145) mmol/L Chloride 96 L (98-107) mmol/L BUN 69 H (9-20) mg/dL Creatinine 7.26 H* (0.66-1.25) mg/dL Calcium 8.2 L (8.4-10.2) mg/dL Iron (65-175) UG/DL % Saturation (15.00-50.00) Transferrin (204.0-354.0) mg/dL C-Reactive Protein 2.1 H (<1.0) mg/dL Procalcitonin 0.62 H (0.02-0.09) ng/mL Assessment and Plan Assessment: Increased weakness in a patient with history of cardiorenal syndrome, chronic anemia, Coumadin coagulopathy, multifactorial. Possibly acute on symptomatic chronic anemia secondary to Coumadin coagulopathy, status post transfusion of packed RBCs. General surgery consult in place. Coumadin coagulopathy Possible community-acquired right lower lobe pneumonia with elevated procalcitonin Chronic diastolic CHF, IV push diuretics ([facility] reporting EF 50 to 55% 01/27) End-stage renal disease on hemodialysis Chronic atrial fibrillation History of pacemaker implantation, complete heart block CAD Severe pulmonary hypertension Moderate to severe mitral regurgitation Moderate to severe tricuspid regurgitation Multivalvular heart disease including mild aortic stenosis Pressure ulcers stage II x 2, right buttocks, present on admission Plan: Continue on current medication regimen ,monitoring and symptomatic treatment. Continue holding Coumadin, repeat INR ordered for today. Close monitoring of hemoglobin, PT/INR with repeat labs ordered for a.m. general surgery consult in place, recommendations pending. Maintain IV antibiotics of ceftriaxone, completed azithromycin. Blood cultures in progress. Hemodialysis as per nephrology. PT/OT consult in place, potential for subacute rehab at discharge. The impression and plan of care has been dictated as directed. : I performed a history and examination of this patient, discussed the same with the dictator. I agree with the dictator's note ,documented as a scribe. Any additional findings or plans will be noted.
[2024-02-17] MEDS: DARBEPOETIN ALFA 60 MCG/0.3 ML SYRINGE SQ SCH (17:40)
[2024-02-17 17:42] LABS: Prothrombin Time 29.4 sec (10.0-12.5)
--- NOTE | 2024-02-18 11:53 | P.PN ---
Subjective patient is seen for follow-up for end-stage renal disease. No significant complaints today. tolerated hemodialysis well yesterday with UF of 2.6 L. Objective - Vital Signs Vital signs: Vital Signs Temp 97.9 F 02/18/24 04:00 Pulse 74 02/18/24 04:00 Resp 16 02/18/24 04:00 BP 123/65 02/18/24 04:00 Pulse Ox 92 L 02/18/24 04:00 FiO2 Intake & Output 02/17/24 02/18/24 02/18/24 18:59 06:59 18:59 Intake Total 918 236 Output Total 2600 Balance -1682 236 Weight 79.379 kg Intake: Oral 118 236 Hemodialysis 800 Output: Hemodialysis 2600 Other: # Voids 1 - Exam patient is awake, comfortable, no acute distress Examination of the heart S1 and S2 Examination of the lungs bilateral breath sounds are heard Abdomen is soft nontender Examination of lower extremities shows no significant edema. BRICK KILN BURNER exam grossly intact - Labs CBC & Chem 7: 02/17/24 03:03 02/17/24 03:03 Labs: Abnormal Lab Results - Last 24 Hours (Table) 02/17/24 Range/Units 17:04 PT 29.4 H (10.0-12.5) sec INR 3.0 H (<1.2) Microbiology - Last 24 Hours (Table) 02/15/24 23:05 Blood Culture - Preliminary Blood 02/15/24 22:50 Blood Culture - Preliminary Blood Assessment and Plan Assessment: 1. End-stage renal disease maintained on hemodialysis on Saturday schedule. 2. Chronic systolic CHF with ejection fraction of 50% with moderate to severe mitral and tricuspid regurgitation. 3. Symptomatic Anemia with CKD. Hb 6.9 on presentation. status post packed RBCs transfusion. 4. Supratheraputic INR s/p Vit K. 5. Chronic disease mineral bone disease maintained on Renvela. 6. Hypertension with CKD 7. Epistaxis with elevated INR Plan: maintain hemodialysis on Saturday witnessed a Saturday schedule. continue Aranesp
[2024-02-18 12:23] LABS: Anisocytosis Slight; HCT 24.8 % (39.0-53.0); HGB 8.2 gm/dL (13.0-17.5); MCH 33.5 pg (25.0-35.0); MCV 101.4 fL (80.0-100.0); Macrocytosis Moderate; Mean Platelet Volume 7.9; Platelet Count 236 k/uL (150-450); RBC 2.44 m/uL (4.30-5.90); RDW 19.4 % (11.5-15.5); WBC 7.1 k/uL (3.8-10.6)
[2024-02-18 12:31] LABS: INR 1.7 (<1.2); Prothrombin Time 17.3 sec (10.0-12.5)
--- NOTE | 2024-02-18 13:33 | P.PN ---
Subjective Progress Note Date: 02/18/24 Principal diagnosis: Anemia. This is an 79-year-old white male with history of rectal problems including end- stage renal disease, on hemodialysis, missed his last hemodialysis last Saturday but not on Saturday. Patient presented to the ER with chronic weakness on and off for the last 6 months. Patient also had intermittent episodes of nausea and vomiting, feels generally weak. Patient denies any melena, denies any hematemesis, however he did have history of nosebleeds. Workup in the ER revealed that his INR is elevated at 5.9, patient is on Coumadin it also revealed a hemoglobin of 6.9, chest x-ray showed evidence of right lower lobe pneumonia, patient is not a great historian, denies any cough denies any fever or chills, but nonetheless he feels generally weak. Considering his abnormal chest x-ray, this consult was initiated. Patient has been seen already by ne phrology and he was seen by the admitting physician, already placed on antibiotics in the form of Rocephin and Zithromax. Again the patient is a very poor historian, seems to be confused, and he could not give me a very adequate history when asked if short of breath or if he is having any cough symptoms patient denied. Progress note dated February 17, 2024. The patient is seen today in the emergency department, room 25. The patient was admitted with a diagnosis of anemia, end-stage renal disease currently on hemodialysis, and weakness. The patient was lying in bed, and wanted to sit up to eat his breakfast. He was extremely weak, and myself and my nurse practitioner had to help him sit up. He is currently on 2 L of oxygen. Chest x-ray is showing possible pneumonia right lower lobe. He was placed on Rocephin and azithromycin. We did put in for a procalcitonin level. Current laboratory data includes a white count 6.5, hemoglobin 7.1, hematocrit 23, and a platelet count of 232,000. The patient's PTT was 58 with an INR of 5.9. Sodium 133, potassium 4.2, chloride 96, CO2 24, BUN 69, and creatinine 7.26. Calcium is 8.2. C-reactive protein is 2.1. Procalcitonin level is elevated at 0.62. Blood cultures are currently pending are negative. Chest x-ray shows some mild pulmonary vascular congestion, and some patchy opacities in the right base. Progress note dated February 18, 2024. The patient is seen today in room 371. The patient appears to be a bit more clinically stable today than yesterday when we saw him in the emergency department. He continues on oxygen at 2 L by nasal cannula. He has received 1 unit of packed red blood cells. He is not getting any IV fluids. The patient's procalcitonin level was 0.62, and he continues on Rocephin for possible underlying pneumonia. Labs today include a white count 7.1, hemoglobin 8.2, hematocrit 24.8, and a platelet count of 236,000. PT is 17.3 with an INR of 1.7. Blood cultures are currently negative or pending. Objective - Vital Signs Vital signs: Vital Signs Temp 97.9 F 02/18/24 04:00 Pulse 74 02/18/24 04:00 Resp 16 02/18/24 04:00 BP 123/65 02/18/24 04:00 Pulse Ox 92 L 02/18/24 04:00 FiO2 Intake & Output 02/17/24 02/18/24 02/18/24 18:59 06:59 18:59 Intake Total 918 236 Output Total 2600 Balance -1682 236 Weight 79.379 kg Intake: Oral 118 236 Hemodialysis 800 Output: Hemodialysis 2600 Other: # Voids 1 - Exam No acute distress, oriented 3. The patient is very profoundly weak. He continues on oxygen at 2 L. HEENT examination is grossly unremarkable. Mucous membranes are moist. No oral lesions. Neck supple. Full range of motion. No adenopathy thyromegaly or neck vein distention. Cardiovascular examination reveals regular rhythm rate. S1-S2 normal. No S3 or S4. No discernible murmur noted. Heart rate 74 bpm. Lungs reveal scattered crackles. No wheezes or rhonchi. Saturations are 93% on 2 L. Abdomen soft bowel sounds are heard. No masses or tenderness. Extremities are intact. No cyanosis clubbing or edema. Skin is without rash or lesion. Neurologic examination is brief but nonfocal. - Labs CBC & Chem 7: 02/18/24 11:05 02/17/24 03:03 Labs: Abnormal Lab Results - Last 24 Hours (Table) 02/17/24 02/18/24 02/18/24 Range/Units 17:04 11:05 11:05 RBC 2.44 L (4.30-5.90) m/uL Hgb 8.2 L (13.0-17.5) gm/dL Hct 24.8 L (39.0-53.0) % MCV 101.4 H (80.0-100.0) fL RDW 19.4 H (11.5-15.5) % PT 29.4 H 17.3 H (10.0-12.5) sec INR 3.0 H 1.7 H (<1.2) Microbiology - Last 24 Hours (Table) 02/15/24 23:05 Blood Culture - Preliminary Blood 02/15/24 22:50 Blood Culture - Preliminary Blood Assessment and Plan Assessment: Possible right lower lobe pneumonia, community-acquired. Procalcitonin level is elevated. End-stage renal disease, currently on hemodialysis. Chronic diastolic CHF. Coumadin induced coagulopathy. Benign essential hypertension. History of chronic kidney disease. Chronic atrial fibrillation. History of degenerative joint disease. Anemia, likely related to anemia of chronic disease. Plan: Plan dated February 17, 2024. The patient continues on appropriate antibiotics, in the form of azithromycin and Rocephin. We will continue to follow make recommendations along the way. The patient's procalcitonin was elevated at 0.62. Labs, x-rays, and medications are reviewed. The patient is profoundly weak, and needed help sitting up in his bed. Labs, x-rays, and medications are reviewed. Prognosis is poor. The patient continues as a full code. And dated February 18, 2024. Patient is sitting in a chair next to his hospital bed. He is on 2 L of oxygen. The patient is not receiving any IV fluids. He has received 1 unit of packed red blood cells. He continues on Rocephin for possible pneumonia. Procalcitoni n level was elevated at 0.62. Labs, x-rays, and medications are reviewed. We will continue to follow make recommendations along the way. Prognosis is guarded. Time with Patient: Less than 30
[2024-02-18 14:54] VITALS: BMI 25.1
--- NOTE | 2024-02-18 15:26 | P.PN ---
Subjective Progress Note Date: 02/18/24 This is an 79-year-old gentleman admitted with generalized weakness, Coumadin coagulopathy, epistaxis, anemia, end-stage renal disease on hemodialysis, chronic atrial fibrillation and multiple other medical issues. Scheduled for hemodialysis today. ER reported patient had multiple nosebleeds throughout the week, last one yesterday. stated he was having trouble standing, walking and performing his ADLs. No triggers reported, did notice that it worsens after hemodialysis. Patient on Coumadin for his atrial fibrillation at home, INR 7.2 on admission. Coumadin placed on hold, received vitamin K , decreased to 5.9 yesterday.received 1 unit packed RBCs yesterday for hemoglobin of 6.9 , increased to 8 and currently decreased to 7.1. General surgery consult in place for potential endoscopies. maintained on IV antibiotics of ceftriaxone and azithromycin for possible community-acquired pneumonia, right lower lobe. Procalcitonin level elevated, 0.62, CRP 2.1, afebrile, normal WBC. Preliminary blood cultures reporting no growth after 24 hours. Denies chest pain, palpitations or shortness of breath. Oxygen weaned off and maintaining O2 sats in the high 90s on room air.Evaluated by speech therapy, reporting no overt signs or symptoms of aspiration observed, recommended continuing regular diet thin liquids. 02/18/2024 tolerated hemodialysis yesterday with no bleeding from fistula site reported. Staff reporting family complaining of patient having significant bleeding from fistula site post hemodialysis ;coming home with blood on his shirt. Nephrology notified. Ambulated in hallway, tolerating well with walker and PT. afebrile, normal WBC, preliminary blood cultures reporting no growth after 48 hours. Hemoglobin 8.2, platelets 236. INR 1.7. Maintained on ceftriaxone for possible pneumonia, maintaining O2 sats in the 90s on 2 L nasal cannula. Objective - Vital Signs Vital signs: Vital Signs Temp 97.9 F 02/18/24 04:00 Pulse 74 02/18/24 04:00 Resp 16 02/18/24 04:00 BP 123/65 02/18/24 04:00 Pulse Ox 92 L 02/18/24 04:00 FiO2 Intake & Output 02/17/24 02/18/24 02/18/24 18:59 06:59 18:59 Intake Total 918 236 Output Total 2600 Balance -1682 236 Weight 79.379 kg Intake: Oral 118 236 Hemodialysis 800 Output: Hemodialysis 2600 Other: # Voids 1 - Exam - Exam PHYSICAL EXAM: VITAL SIGNS: As above GENERAL: Alert and oriented 3, standing up with walker with PT at side,NAD HEENT: Normocephalic, Conjunctivae normal. eyes normal. Currently no epistaxis NECK: Supple, No JVD. CARDIOVASCULAR: S1, S2 regular. Systolic murmur RESPIRATION: Unlabored, equal air entry, scattered crackles, bilateral lungs diminished ABDOMEN: Soft, nontender . No guarding. no masses palpable. Bowel sounds heard. EXTREMITIES: no edema, no calf tenderness, NERVOUS SYSTEM: Cranial N 2-12 grossly normal. No focal deficits. Strength and sensation grossly intact. Skin: Warm and dry, pressure sores x 2 on right buttocks - Labs CBC & Chem 7: 02/18/24 11:05 02/17/24 03:03 Labs: Abnormal Lab Results - Last 24 Hours (Table) 02/17/24 02/18/24 02/18/24 Range/Units 17:04 11:05 11:05 RBC 2.44 L (4.30-5.90) m/uL Hgb 8.2 L (13.0-17.5) gm/dL Hct 24.8 L (39.0-53.0) % MCV 101.4 H (80.0-100.0) fL RDW 19.4 H (11.5-15.5) % PT 29.4 H 17.3 H (10.0-12.5) sec INR 3.0 H 1.7 H (<1.2) Microbiology - Last 24 Hours (Table) 02/15/24 23:05 Blood Culture - Preliminary Blood 02/15/24 22:50 Blood Culture - Preliminary Blood Assessment and Plan Assessment: Increased weakness in a patient with history of cardiorenal syndrome, chronic anemia, Coumadin coagulopathy, multifactorial. Possibly acute on symptomatic chronic anemia secondary to Coumadin coagulopathy, status post transfusion of packed RBCs. General surgery consult in place. Coumadin coagulopathy Possible community-acquired right lower lobe pneumonia with elevated procalcitonin Chronic diastolic CHF, IV push diuretics ([facility] reporting EF 50 to 55% 01/27) End-stage renal disease on hemodialysis Chronic atrial fibrillation History of pacemaker implantation, complete heart block CAD Severe pulmonary hypertension Moderate to severe mitral regurgitation Moderate to severe tricuspid regurgitation Multivalvular heart disease including mild aortic stenosis Pressure ulcers stage II x 2, right buttocks, present on admission Plan: Continue on current medication regimen ,monitoring and symptomatic treatment. Coumadin per pharmacy dosing. close monitoring of hemoglobin, PT/INR with repeat labs ordered for a.m. general surgery consult in place, r ecommendations pending. Maintain IV antibiotics of ceftriaxone. Hemodialysis as per nephrology. Evaluated by PT with subacute rehab recommended at discharge. The impression and plan of care has been dictated as directed. : I performed a history and examination of this patient, discussed the same with the dictator. I agree with the dictator's note ,documented as a scribe. Any additional findings or plans will be noted.
--- NOTE | 2024-02-18 15:56 | P.PN ---
Subjective Progress Note Date: 02/17/24 Principal diagnosis: Reason for follow-up is pneumonia Patient is a 79-year-old male with a past medical history significant for atrial fibrillation end-stage renal disease on dialysis patient has been brought into the hospital for evaluation of lightheadedness and dizziness, did have a chest x-ray with airspace opacity right lung base concerning for possible pneumonia. On today's evaluation that is 02/17/2024, patient has been afebrile, patient is breathing comfortably and is currently on 2 L nasal cannula oxygen, patient denies chest pain occasional cough no sputum production no nausea vomiting or diarrhea Patient did have white count of 6.5, creatinine 7.26, procalcitonin 0.62 Objective - Vital Signs Vital signs: Vital Signs Temp 97.8 F 02/17/24 10:03 Pulse 60 02/17/24 10:03 Resp 18 02/17/24 10:03 BP 130/62 02/17/24 10:03 Pulse Ox 97 02/17/24 10:03 FiO2 Intake & Output 02/16/24 02/17/24 02/17/24 18:59 06:59 18:59 Intake Total 550 Balance 550 Intake: Intake, IV Titration 300 Amount Azithromycin 500 mg In 250 Sodium Chloride 0.9% 250 ml @ 250 mls/hr IVPB ONCE STA Rx#:[id number] cefTRIAXone 2 gm In 50 Sodium Chloride 0.9% 50 ml @ 100 mls/hr IVPB ONCE STA Rx#:[id number] Oral 250 - Exam GENERAL DESCRIPTION: An elderly male lying in bed in no distress RESPIRATORY SYSTEM: Unlabored breathing , decreased breath sounds at bases HEART: S1 S2 regular rate and rhythm , ABDOMEN: Soft , no tenderness EXTREMITIES: No edema feet - Labs CBC & Chem 7: 02/18/24 11:05 02/17/24 03:03 Labs: Abnormal Lab Results - Last 24 Hours (Table) 02/16/24 02/17/24 02/17/24 Range/Units 10:14 03:03 03:03 RBC 2.27 L (4.30-5.90) m/uL Hgb 7.1 L (13.0-17.5) gm/dL Hct 23.0 L (39.0-53.0) % MCV 101.5 H (80.0-100.0) fL RDW 18.2 H (11.5-15.5) % Lymphocytes # 0.9 L (1.0-4.8) k/uL Sodium 133 L (137-145) mmol/L Chloride 96 L (98-107) mmol/L BUN 69 H (9-20) mg/dL Creatinine 7.26 H* (0.66-1.25) mg/dL Calcium 8.2 L (8.4-10.2) mg/dL Iron 216 H (65-175) UG/DL % Saturation 85.71 H (15.00-50.00) Transferrin 180.0 L (204.0-354.0) mg/dL C-Reactive Protein 2.1 H (<1.0) mg/dL Procalcitonin (0.02-0.09) ng/mL 02/17/24 Range/Units 03:03 RBC (4.30-5.90) m/uL Hgb (13.0-17.5) gm/dL Hct (39.0-53.0) % MCV (80.0-100.0) fL RDW (11.5-15.5) % Lymphocytes # (1.0-4.8) k/uL Sodium (137-145) mmol/L Chloride (98-107) mmol/L BUN (9-20) mg/dL Creatinine (0.66-1.25) mg/dL Calcium (8.4-10.2) mg/dL Iron (65-175) UG/DL % Saturation (15.00-50.00) Transferrin (204.0-354.0) mg/dL C-Reactive Protein (<1.0) mg/dL Procalcitonin 0.62 H (0.02-0.09) ng/mL Assessment and Plan (1) Pneumonia Current Visit: Yes Status: Acute Code(s): J18.9 - PNEUMONIA, UNSPECIFIED ORGANISM SNOMED Code(s): 831430571 Plan: 1patient presented hospital with generalized weakness also complaining of nosebleed in this patient on admission to the hospital did have significant elevated INR may be responsible for some of his symptoms however the patient also have a chest x-ray with right sided infiltrate suspicious for pneumonia. 2patient did have elevated procalcitonin of 0.62 sputum was not collected blood culture pending 3patient to continue with Rocephin and Zithromax while waiting for the workup to be completed. Dictation was produced using [employer] dictation software. please excuse any grammatical, word or spelling errors. Time with Patient: Less than 30
--- NOTE | 2024-02-18 15:57 | P.PN ---
Subjective Progress Note Date: 02/18/24 Principal diagnosis: Reason for follow-up is pneumonia Patient is a 79-year-old male with a past medical history significant for atrial fibrillation end-stage renal disease on dialysis patient has been brought into the hospital for evaluation of lightheadedness and dizziness, did have a chest x-ray with airspace opacity right lung base concerning for possible pneumonia. On today's evaluation that is 02/18/2024,the patient denies any fever or any chills, patient is breathing comfortably on 2 L nasal oxygen, the patient denies chest pain shortness of breath and no significant cough, patient denies abdominal pain, no nausea vomiting or diarrhea. Patient did have a white count of 7.1 INR is 1.7 blood cultures are pending sputum not collected Objective - Vital Signs Vital signs: Vital Signs Temp 97.9 F 02/18/24 04:00 Pulse 74 02/18/24 04:00 Resp 16 02/18/24 04:00 BP 123/65 02/18/24 04:00 Pulse Ox 92 L 02/18/24 04:00 FiO2 Intake & Output 02/17/24 02/18/24 02/18/24 18:59 06:59 18:59 Intake Total 918 354 Output Total 2600 Balance -1682 354 Weight 79.379 kg 79.379 kg Intake: Oral 118 354 Hemodialysis 800 Output: Hemodialysis 2600 Other: # Voids 1 - Exam GENERAL DESCRIPTION: An elderly male lying in bed in no distress RESPIRATORY SYSTEM: Unlabored breathing , decreased breath sounds at bases HEART: S1 S2 regular rate and rhythm , ABDOMEN: Soft , no tenderness EXTREMITIES: No edema feet - Labs CBC & Chem 7: 02/18/24 11:05 02/17/24 03:03 Labs: Abnormal Lab Results - Last 24 Hours (Table) 02/17/24 02/18/24 02/18/24 Range/Units 17:04 11:05 11:05 RBC 2.44 L (4.30-5.90) m/uL Hgb 8.2 L (13.0-17.5) gm/dL Hct 24.8 L (39.0-53.0) % MCV 101.4 H (80.0-100.0) fL RDW 19.4 H (11.5-15.5) % PT 29.4 H 17.3 H (10.0-12.5) sec INR 3.0 H 1.7 H (<1.2) Microbiology - Last 24 Hours (Table) 02/15/24 23:05 Blood Culture - Preliminary Blood 02/15/24 22:50 Blood Culture - Preliminary Blood Assessment and Plan (1) Pneumonia Current Visit: Yes Status: Acute Code(s): J18.9 - PNEUMONIA, UNSPECIFIED ORG ANISM SNOMED Code(s): 676654822 Plan: 1patient presented hospital with generalized weakness also complaining of nosebleed in this patient on admission to the hospital did have significant elevated INR may be responsible for some of his symptoms however the patient also have a chest x-ray with right sided infiltrate suspicious for pneumonia. 2patient did have elevated procalcitonin of 0.62 sputum was not collected blood culture pending 3patient seem to have shown some clinical improvement and will continue with Rocephin and Zithromax and monitor clinical course closely Dictation was produced using [employer] dictation software. please excuse any grammatical, word or spelling errors. Time with Patient: Less than 30
[2024-02-18] MEDS: WARFARIN 3 MG TAB PO ONE (17:09)
[2024-02-18] MEDS: DOCUSATE 100 MG CAP PO PRN (17:09)
--- NOTE | 2024-02-18 17:16 | P.PN ---
Subjective Progress Note Date: 02/18/24 CHIEF COMPLAINT: Anemia HISTORY OF PRESENT ILLNESS: Surgical service following in regards to a possible GI bleed. Patient has had no blood in the stools and no melanotic stools. Denies any nausea or vomiting. Denies abdominal pain. He initially was having frequent nosebleeds at home. This has resolved. Patient did have Coumadin toxicity on admission. Afebrile. WBC 7.1 Hgb up from 7.1-8.2 INR 1.7 patient had hemodialysis yesterday PHYSICAL EXAM: VITAL SIGNS: Reviewed. GENERAL: Well-developed in no acute distress. ABDOMEN: Soft. Nondistended. Nontender. NEUROLOGIC: Alert and oriented. Cranial nerves II through XII grossly intact. ASSESSMENT: 1. Symptomatic anemia with epistaxis from Coumadin toxicity PLAN: -Surgical intervention planned -Continue to monitor hemoglobin -Continue to monitor for any signs or symptoms of bleeding -Recommended patient be evaluated by ENT Physician Horse Exerciser note has been reviewed by physician. Signing provider agrees with the documented findings, assessment, and plan of care. Objective - Vital Signs Vital signs: Vital Signs Temp 98.6 F 02/18/24 12:00 Pulse 55 L 02/18/24 12:00 Resp 17 02/18/24 12:00 BP 113/58 02/18/24 12:00 Pulse Ox 99 02/18/24 12:00 FiO2 Intake & Output 02/17/24 02/18/24 02/18/24 18:59 06:59 18:59 Intake Total 918 354 Output Total 2600 Balance -1682 354 Weight 79.379 kg 79.379 kg Intake: Oral 118 354 Hemodialysis 800 Output: Hemodialysis 2600 Other: # Voids 1 - Labs CBC & Chem 7: 02/18/24 11:05 02/17/24 03:03 Labs: Abnormal Lab Results - Last 24 Hours (Table) 02/17/24 02/18/24 02/18/24 Range/Units 17:04 11:05 11:05 RBC 2.44 L (4.30-5.90) m/uL Hgb 8.2 L (13.0-17.5) gm/dL Hct 24.8 L (39.0-53.0) % MCV 101.4 H (80.0-100.0) fL RDW 19.4 H (11.5-15.5) % PT 29.4 H 17.3 H (10.0-12.5) sec INR 3.0 H 1.7 H (<1.2) Microbiology - Last 24 Hours (Table) 02/15/24 23:05 Blood Culture - Preliminary Blood 02/15/24 22:50 Blood Culture - Preliminary Blood
[2024-02-19 09:55] VITALS: RESP 16
[2024-02-19 11:23] LABS: Anisocytosis Slight; Basophils % (A) 0 %; Eosinophils # (A) 0.1 k/uL (0-0.7); Eosinophils % (A) 3 %; HCT 23.9 % (39.0-53.0); HGB 7.9 gm/dL (13.0-17.5); INR 1.3 (<1.2); Lymphocytes # (A) 0.8 k/uL (1.0-4.8); Lymphocytes % (A) 16 %; MCH 33.6 pg (25.0-35.0); MCHC 33.3 g/dL (31.0-37.0); MCV 100.9 fL (80.0-100.0); Macrocytosis Moderate; Mean Platelet Volume 7.8; Monocytes # (A) 0.3 k/uL (0-1.0); Monocytes % (A) 6 %; Neutrophils # (A) 3.8 k/uL (1.3-7.7); Neutrophils % (A) 74 %; Platelet Count 214 k/uL (150-450); Prothrombin Time 13.6 sec (10.0-12.5); RBC 2.37 m/uL (4.30-5.90); RDW 19.9 % (11.5-15.5); WBC 5.2 k/uL (3.8-10.6)
[2024-02-19 11:32] LABS: African American GFR (CKD) 14 (>60 ml/min/1.73 sqM); Anion Gap 7 mmol/L; Blood Urea Nitrogen 32 mg/dL (9-20); Calcium 8.3 mg/dL (8.4-10.2); Carbon Dioxide 30 mmol/L (22-30); Chloride 95 mmol/L (98-107); Glucose 93 mg/dL (74-99); Non-African American GFR(CKD) 12 (>60 ml/min/1.73 sqM); Potassium 3.3 mmol/L (3.5-5.1); Sodium 132 mmol/L (137-145)
--- NOTE | 2024-02-19 13:12 | P.PN ---
Subjective Progress Note Date: 02/19/24 Principal diagnosis: Anemia. This is an 79-year-old white male with history of rectal problems including end- stage renal disease, on hemodialysis, missed his last hemodialysis last Saturday but not on Saturday. Patient presented to the ER with chronic weakness on and off for the last 6 months. Patient also had intermittent episodes of nausea and vomiting, feels generally weak. Patient denies any melena, denies any hematemesis, however he did have history of nosebleeds. Workup in the ER revealed that his INR is elevated at 5.9, patient is on Coumadin it also revealed a hemoglobin of 6.9, chest x-ray showed evidence of right lower lobe pneumonia, patient is not a great historian, denies any cough denies any fever or chills, but nonetheless he feels generally weak. Considering his abnormal chest x-ray, this consult was initiated. Patient has been seen already by ne phrology and he was seen by the admitting physician, already placed on antibiotics in the form of Rocephin and Zithromax. Again the patient is a very poor historian, seems to be confused, and he could not give me a very adequate history when asked if short of breath or if he is having any cough symptoms patient denied. Progress note dated February 17, 2024. The patient is seen today in the emergency department, room 25. The patient was admitted with a diagnosis of anemia, end-stage renal disease currently on hemodialysis, and weakness. The patient was lying in bed, and wanted to sit up to eat his breakfast. He was extremely weak, and myself and my nurse practitioner had to help him sit up. He is currently on 2 L of oxygen. Chest x-ray is showing possible pneumonia right lower lobe. He was placed on Rocephin and azithromycin. We did put in for a procalcitonin level. Current laboratory data includes a white count 6.5, hemoglobin 7.1, hematocrit 23, and a platelet count of 232,000. The patient's PTT was 58 with an INR of 5.9. Sodium 133, potassium 4.2, chloride 96, CO2 24, BUN 69, and creatinine 7.26. Calcium is 8.2. C-reactive protein is 2.1. Procalcitonin level is elevated at 0.62. Blood cultures are currently pending are negative. Chest x-ray shows some mild pulmonary vascular congestion, and some patchy opacities in the right base. Progress note dated February 18, 2024. The patient is seen today in room 371. The patient appears to be a bit more clinically stable today than yesterday when we saw him in the emergency department. He continues on oxygen at 2 L by nasal cannula. He has received 1 unit of packed red blood cells. He is not getting any IV fluids. The patient's procalcitonin level was 0.62, and he continues on Rocephin for possible underlying pneumonia. Labs today include a white count 7.1, hemoglobin 8.2, hematocrit 24.8, and a platelet count of 236,000. PT is 17.3 with an INR of 1.7. Blood cultures are currently negative or pending. Progress note dated February 19, 2024. The patient is seen today in room 371. The patient is undergoing hemodialysis. The plan is to remove 2 L of fluid off this patient. He is currently on oxygen at 2 L. He is not receiving any IV fluids. Current labs include a white count 5.2, hemoglobin 7.9, hematocrit 23.9, and a platelet count of 214,000. Sodium 132, potassium 3.3, chloride 95, CO2 30, BUN 32, creatinine 4.30. Calcium is 8.3. Procalcitonin from 16 February was 0.62. Blood cultures are currently negative. Objective - Vital Signs Vital signs: Vital Signs Temp 97.6 F 02/19/24 09:05 Pulse 60 02/19/24 09:05 Resp 16 02/19/24 09:05 BP 143/69 02/19/24 09:05 Pulse Ox 100 02/19/24 09:05 FiO2 Intake & Output 02/18/24 02/19/24 02/19/24 18:59 06:59 18:59 Intake Total 354 Output Total 0 Balance 354 0 Weight 79.379 kg 74.7 kg Intake: Oral 354 Output: Urine 0 Other: # Voids 0 - Exam No acute distress, oriented 3. The patient is very profoundly weak. He continues on oxygen at 2 L. HEENT examination is grossly unremarkable. Mucous membranes are moist. No oral lesions. Neck supple. Full range of motion. No adenopathy thyromegaly or neck vein distention. Cardiovascular examination reveals regular rhythm rate. S1-S2 normal. No S3 or S4. No discernible murmur noted. Heart rate 60 bpm. Lungs reveal scattered crackles. No wheezes or rhonchi. Saturations are 99 % on 2 L. Abdomen soft bowel sounds are heard. No masses or tenderness. Extremities are intact. No cyanosis clubbing or edema. Skin is without rash or lesion. Neurologic examination is brief but nonfocal. - Labs CBC & Chem 7: 02/19/24 10:02/19/24 10:06 Labs: Abnormal Lab Results - Last 24 Hours (Table) 02/18/24 02/19/24 02/19/24 Range/Units 11:05 10:06 10:06 RBC 2.37 L (4.30-5.90) m/uL Hgb 7.9 L (13.0-17.5) gm/dL Hct 23.9 L (39.0-53.0) % MCV 100.9 H (80.0-100.0) fL RDW 19.9 H (11.5-15.5) % Lymphocytes # 0.8 L (1.0-4.8) k/uL PT 17.3 H 13.6 H (10.0-12.5) sec INR 1.7 H 1.3 H (<1.2) Sodium (137-145) mmol/L Potassium (3.5-5.1) mmol/L Chloride (98-107) mmol/L BUN (9-20) mg/dL Creatinine (0.66-1.25) mg/dL Calcium (8.4-10.2) mg/dL 02/19/24 Range/Units 10:06 RBC (4.30-5.90) m/uL Hgb (13.0-17.5) gm/dL Hct (39.0-53.0) % MCV (80.0-100.0) fL RDW (11.5-15.5) % Lymphocytes # (1.0-4.8) k/uL PT (10.0-12.5) sec INR (<1.2) Sodium 132 L (137-145) mmol/L Potassium 3.3 L (3.5-5.1) mmol/L Chloride 95 L (98-107) mmol/L BUN 32 H (9-20) mg/dL Creatinine 4.30 H (0.66-1.25) mg/dL Calcium 8.3 L (8.4-10.2) mg/dL Microbiology - Last 24 Hours (Table) 02/15/24 23:05 Blood Culture - Preliminary Blood 02/15/24 22:50 Blood Culture - Preliminary Blood Assessment and Plan Assessment: Possible right lower lobe pneumonia, community-acquired. Procalcitonin level is elevated. End-stage renal disease, currently on hemodialysis. Chronic diastolic CHF. Coumadin induced coagulopathy. Benign essential hypertension. History of chronic kidney disease. Chronic atrial fibrillation. History of degenerative joint disease. Anemia, likely related to anemia of chronic disease. Plan: Plan dated February 17, 2024. The patient continues on appropriate antibiotics, in the form of azithromycin and Rocephin. We will continue to follow make recommendations along the way. The patient's procalcitonin was elevated at 0.62. Labs, x-rays, and medications are reviewed. The patient is profoundly weak, and needed help sitting up in his bed. Labs, x-rays, and medications are reviewed. Prognosis is poor. The patient continues as a full code. Plan dated February 18, 2024. Patient is sitting in a chair next to his hospital bed. He is on 2 L of oxygen. The patient is not receiving any IV fluids. He has received 1 unit of packed red blood cells. He continues on Rocephin for possible pneumonia. Procalcitonin level was elevated at 0.62. Labs, x-rays, and medications are reviewed. We will continue to follow make recommendations along the way. Pr ognosis is guarded. Plan dated February 19, 2024. The patient should have an antibiotic, and looking at his medication list, I do not see one. The patient was previously on Rocephin. The patient's proc alcitonin level was 0.62. He was admitted with a diagnosis of possible pneumonia, and initially was started on azithromycin and Rocephin. Labs, x- rays, medications are reviewed. It would be my recommendation to get the patient back on an antibiotic. I will leave that up to the primary service. No additional recommendations are made. Labs, x-rays, and medications are reviewed. Time with Patient: Less than 30
--- NOTE | 2024-02-19 15:17 | P.PN ---
Subjective Progress Note Date: 02/19/24 CHIEF COMPLAINT: Anemia HISTORY OF PRESENT ILLNESS: Surgical service following in regards to a possible GI bleed. Patient has had no blood in the stools and no melanotic stools. Denies any nausea or vomiting. Denies abdominal pain. He initially was having frequent nosebleeds at home. This has resolved. Patient did have Coumadin toxicity on admission. Patient receiving hemodialysis this morning. PHYSICAL EXAM: VITAL SIGNS: Reviewed. GENERAL: Well-developed in no acute distress. ABDOMEN: Soft. Nondistended. Nontender. NEUROLOGIC: Alert and oriented. Cranial nerves II through XII grossly intact. ASSESSMENT: 1. Symptomatic anemia with epistaxis from Coumadin toxicity PLAN: -Surgical intervention planned -Continue to monitor hemoglobin -Continue to monitor for any signs or symptoms of bleeding Physician Strapper Operator note has been reviewed by physician. Signing provider agrees with the documented findings, assessment, and plan of care. Objective - Vital Signs Vital signs: Vital Signs Temp 97.6 F 02/19/24 13:45 Pulse 61 02/19/24 14:30 Resp 16 02/19/24 14:30 BP 134/56 02/19/24 13:45 Pulse Ox 100 02/19/24 11:40 FiO2 Intake & Output 02/18/24 02/19/24 02/19/24 18:59 06:59 18:59 Intake Total 354 500 Output Total 0 2500 Balance 354 0 -2000 Weight 79.379 kg 74.7 kg Intake: Oral 354 Hemodialysis 500 Output: Urine 0 Hemodialysis 2500 Other: # Voids 0 # Bowel Movements 1 - Labs CBC & Chem 7: 02/19/24 10:06 02/19/24 10:06 Labs: Abnormal Lab Results - Last 24 Hours (Table) 02/19/24 02/19/24 02/19/24 Range/Units 10:06 10:06 10:06 RBC 2.37 L (4.30-5.90) m/uL Hgb 7.9 L (13.0-17.5) gm/dL Hct 23.9 L (39.0-53.0) % MCV 100.9 H (80.0-100.0) fL RDW 19.9 H (11.5-15.5) % Lymphocytes # 0.8 L (1.0-4.8) k/uL PT 13.6 H (10.0-12.5) sec INR 1.3 H (<1.2) Sodium 132 L (137-145) mmol/L Potassium 3.3 L (3.5-5.1) mmol/L Chloride 95 L (98-107) mmol/L BUN 32 H (9-20) mg/dL Creatinine 4.30 H (0.66-1.25) mg/dL Calcium 8.3 L (8.4-10.2) mg/dL Microbiology - Last 24 Hours (Table) 02/15/24 23:05 Blood Culture - Preliminary Blood 02/15/24 22:50 Blood Culture - Preliminary Blood
--- NOTE | 2024-02-19 15:25 | P.PN ---
Subjective Progress Note Date: 02/19/24 This is an 79-year-old gentleman admitted with generalized weakness, Coumadin coagulopathy, epistaxis, anemia, end-stage renal disease on hemodialysis, chronic atrial fibrillation and multiple other medical issues. Scheduled for hemodialysis today. ER reported patient had multiple nosebleeds throughout the week, last one yesterday. stated he was having trouble standing, walking and performing his ADLs. No triggers reported, did notice that it worsens after hemodialysis. Patient on Coumadin for his atrial fibrillation at home, INR 7.2 on admission. Coumadin placed on hold, received vitamin K , decreased to 5.9 yesterday.received 1 unit packed RBCs yesterday for hemoglobin of 6.9 , increased to 8 and currently decreased to 7.1. General surgery consult in place for potential endoscopies. maintained on IV antibiotics of ceftriaxone and azithromycin for possible community-acquired pneumonia, right lower lobe. Procalcitonin level elevated, 0.62, CRP 2.1, afebrile, normal WBC. Preliminary blood cultures reporting no growth after 24 hours. Denies chest pain, palpitations or shortness of breath. Oxygen weaned off and maintaining O2 sats in the high 90s on room air.Evaluated by speech therapy, reporting no overt signs or symptoms of aspiration observed, recommended continuing regular diet thin liquids. 02/18/2024 tolerated hemodialysis yesterday with no bleeding from fistula site reported. Staff reporting family complaining of patient having significant bleeding from fistula site post hemodialysis ;coming home with blood on his shirt. Nephrology notified. Ambulated in hallway, tolerating well with walker and PT. afebrile, normal WBC, preliminary blood cultures reporting no growth after 48 hours. Hemoglobin 8.2, platelets 236. INR 1.7. Maintained on ceftriaxone for possible pneumonia, maintaining O2 sats in the 90s on 2 L nasal cannula. 02/19/2024 receiving hemodialysis this morning. INR 1.3, anticoagulated on Coumadin as per pharmacy dosing. Hemoglobin 7.9, platelets 214 .maintaining O2 sats in the 90s on 3 L nasal cannula. Pulmonary recommending to continue on antibiotics given patient's procalcitonin was elevated at 0.62. Afebrile, normal WBC, blood cultures reporting no growth after 72 hours. Sodium 132, potassium 3.3-electrolyte supplementation as per nephrology. evaluated by PT yesterday recommending subacute rehab. Objective - Vital Signs Vital signs: Vital Signs Temp 97.6 F 02/19/24 13:45 Pulse 61 02/19/24 14:30 Resp 16 02/19/24 14:30 BP 134/56 02/19/24 13:45 Pulse Ox 100 02/19/24 11:40 FiO2 Intake & Output 02/18/24 02/19/24 02/19/24 18:59 06:59 18:59 Intake Total 354 500 Output Total 0 2500 Balance 354 0 -2000 Weight 79.379 kg 74.7 kg Intake: Oral 354 Hemodialysis 500 Output: Urine 0 Hemodialysis 2500 Other: # Voids 0 # Bowel Movements 1 - Exam - Exam PHYSICAL EXAM: VITAL SIGNS: As above GENERAL: Alert and oriented 3, receiving hemodialysis, NAD HEENT: Normocephalic, Conjunctivae normal. eyes normal. NECK: Supple, No JVD. CARDIOVASCULAR: S1, S2 regular. Systolic murmur RESPIRATION: Unlabored, equal air entry, scattered crackles, bilateral lungs diminished ABDOMEN: Soft, nontender . No guarding. no masses palpable. Bowel sounds heard. EXTREMITIES: no edema, no calf tenderness, NERVOUS SYSTEM: Cranial N 2-12 grossly normal. No focal deficits. Skin: Warm and dry, pressure sores x 2 on right buttocks - Labs CBC & Chem 7: 02/19/24 10:06 02/19/24 10:06 Labs: Abnormal Lab Results - Last 24 Hours (Table) 02/19/24 02/19/24 02/19/24 Range/Units 10:06 10:06 10:06 RBC 2.37 L (4.30-5.90) m/uL Hgb 7.9 L (13.0-17.5) gm/dL Hct 23.9 L (39.0-53.0) % MCV 100.9 H (80.0-100.0) fL RDW 19.9 H (11.5-15.5) % Lymphocytes # 0.8 L (1.0-4.8) k/uL PT 13.6 H (10.0-12.5) sec INR 1.3 H (<1.2) Sodium 132 L (137-145) mmol/L Potassium 3.3 L (3.5-5.1) mmol/L Chloride 95 L (98-107) mmol/L BUN 32 H (9-20) mg/dL Creatinine 4.30 H (0.66-1.25) mg/dL Calcium 8.3 L (8.4-10.2) mg/dL Microbiology - Last 24 Hours (Table) 02/15/24 23:05 Blood Culture - Preliminary Blood 02/15/24 22:50 Blood Culture - Preliminary Blood Assessment and Plan Assessment: Increased weakness in a patient with history of cardiorenal syndrome, chronic anemia, Coumadin coagulopathy, multifactorial. Possibly acute on symptomatic chronic anemia secondary to Coumadin coagulopathy, status post transfusion of packed RBCs. General surgery consult in place. Coumadin coagulopathy Symptomatic anemia of chronic disease secondary to epistaxis, related to Coumadin coagulopathy Possible community-acquired right lower lobe pneumonia with elevated procalcitonin Chronic diastolic CHF, IV push diuretics ([facility] reporting EF 50 to 55% 01/27) End-stage renal disease on hemodialysis Chronic atrial fibrillation History of pacemaker implantation, complete heart block CAD Severe pulmonary hypertension Moderate to severe mitral regurgitation Moderate to severe tricuspid regurgitation Multivalvular heart disease including mild aortic stenosis Pressure ulcers stage II x 2, right buttocks, present on admission Plan: Continue on current medication regimen ,monitoring and symptomatic treatment. Antibiotics of ceftriaxone resumed as per pulmonary's recommendations to continue antibiotics .Daily PT/INR with Coumadin per pharmacy dosing. close monitoring of hemoglobin, platelets, INR with repeat labs ordered for a.m. hemodialysis as per nephrology. The impression and plan of care has been dictated as directed. : I performed a history and examination of this patient, discussed the same with the dictator. I agree with the dictator's note ,documented as a scribe. Any additional findings or plans will be noted.
[2024-02-19] MEDS: WARFARIN 3 MG TAB PO ONE (17:33)
--- NOTE | 2024-02-19 18:57 | P.PN ---
Subjective patient is seen for follow-up for end-stage renal disease. No significant complaints today. Patient is seen on hemodialysis. Tolerating treatment well. Objective - Vital Signs Vital signs: Vital Signs Temp 97.9 F 02/19/24 15:45 Pulse 60 02/19/24 15:45 Resp 16 02/19/24 15:45 BP 110/57 02/19/24 15:45 Pulse Ox 96 02/19/24 15:45 FiO2 Intake & Output 02/18/24 02/19/24 02/19/24 18:59 06:59 18:59 Intake Total 354 618 Output Total 0 2500 Balance 354 0 -1882 Weight 79.379 kg 74.7 kg Intake: Oral 354 118 Hemodialysis 500 Output: Urine 0 Hemodialysis 2500 Other: # Voids 0 # Bowel Movements 1 - Exam patient is awake, comfortable, no acute distress Examination of the heart S1 and S2 Examination of the lungs bilateral breath sounds are heard Abdomen is soft nontender Examination of lower extremities shows no significant edema. SECURITY OFFICERS AND GUARDS exam grossly intact - Labs CBC & Chem 7: 02/19/24 10:06 02/19/24 10:06 Labs: Abnormal Lab Results - Last 24 Hours (Table) 02/19/24 02/19/24 02/19/24 Range/Units 10:06 10:06 10:06 RBC 2.37 L (4.30-5.90) m/uL Hgb 7.9 L (13.0-17.5) gm/dL Hct 23.9 L (39.0-53.0) % MCV 100.9 H (80.0-100.0) fL RDW 19.9 H (11.5-15.5) % Lymphocytes # 0.8 L (1.0-4.8) k/uL PT 13.6 H (10.0-12.5) sec INR 1.3 H (<1.2) Sodium 132 L (137-145) mmol/L Potassium 3.3 L (3.5-5.1) mmol/L Chloride 95 L (98-107) mmol/L BUN 32 H (9-20) mg/dL Creatinine 4.30 H (0.66-1.25) mg/dL Calcium 8.3 L (8.4-10.2) mg/dL Microbiology - Last 24 Hours (Table) 02/15/24 23:05 Blood Culture - Preliminary Blood 02/15/24 22:50 Blood Culture - Preliminary Blood Assessment and Plan Assessment: 1. End-stage renal disease maintained on hemodialysis on Saturday schedule. 2. Chronic systolic CHF with ejection fraction of 50% with moderate to severe mitral and tricuspid regurgitation. 3. Symptomatic Anemia with CKD. Hb 6.9 on presentation. status post packed RBCs transfusion. 4. Supratheraputic INR s/p Vit K. 5. Chronic disease mineral bone disease maintained on Renvela. 6. Hypertension with CKD 7. Epistaxis with elevated INR Plan: maintain hemodialysis on Saturday schedule. continue Aranesp
--- NOTE | 2024-02-20 10:28 | P.PN ---
Subjective Progress Note Date: 02/20/24 CHIEF COMPLAINT: Anemia HISTORY OF PRESENT ILLNESS: Surgical service following in regards to a possible GI bleed. Patient has had no blood in the stools and no melanotic stools. Patient had a brown bowel movement yesterday. Denies any abdominal pain. Denies any nausea or vomiting. Has had no further nosebleeds. Afebrile. WBC 5.2 hemoglobin 8.2-7.9 INR 1.3 PHYSICAL EXAM: VITAL SIGNS: Reviewed. GENERAL: Well-developed in no acute distress. ABDOMEN: Soft. Nondistended. Nontender. NEUROLOGIC: Alert and oriented. Cranial nerves II through XII grossly intact. ASSESSMENT: 1. Symptomatic anemia with epistaxis from Coumadin toxicity. Hemoglobin stable. No active signs of bleeding PLAN: -No Surgical intervention planned -Patient can be discharged from surgical standpoint Physician Installer Technician note has been reviewed by physician. Signing provider agrees with the documented findings, assessment, and plan of care. Objective - Vital Signs Vital signs: Vital Signs Temp 97.8 F 02/19/24 23:59 Pulse 61 02/20/24 04:54 Resp 16 02/20/24 04:54 BP 133/63 02/20/24 04:00 Pulse Ox 99 02/20/24 08:46 FiO2 Intake & Output 02/19/24 02/20/24 02/20/24 18:59 06:59 18:59 Intake Total 618 118 Output Total 2500 0 Balance -1882 0 118 Weight 72.6 kg Intake: Oral 118 118 Hemodialysis 500 Output: Urine 0 Hemodialysis 2500 Other: # Bowel Movements 1 - Labs CBC & Chem 7: 02/20/24 11:02 02/20/24 11:02 Labs: Abnormal Lab Results - Last 24 Hours (Table) 02/19/24 02/19/24 02/19/24 Range/Units 10:06 10:06 10:06 RBC 2.37 L (4.30-5.90) m/uL Hgb 7.9 L (13.0-17.5) gm/dL Hct 23.9 L (39.0-53.0) % MCV 100.9 H (80.0-100.0) fL RDW 19.9 H (11.5-15.5) % Lymphocytes # 0.8 L (1.0-4.8) k/uL PT 13.6 H (10.0-12.5) sec INR 1.3 H (<1.2) Sodium 132 L (137-145) mmol/L Potassium 3.3 L (3.5-5.1) mmol/L Chloride 95 L (98-107) mmol/L BUN 32 H (9-20) mg/dL Creatinine 4.30 H (0.66-1.25) mg/dL Calcium 8.3 L (8.4-10.2) mg/dL Microbiology - Last 24 Hours (Table) 02/15/24 23:05 Blood Culture - Preliminary Blood 02/15/24 22:50 Blood Culture - Preliminary Blood
--- NOTE | 2024-02-20 10:43 | P.PN ---
Subjective patient is seen for follow-up for end-stage renal disease. No significant complaints today. tolerated hemodialysis well yesterday.UF 2.5 L. No issues with the access post dialysis. Objective - Vital Signs Vital signs: Vital Signs Temp 97.7 F 02/20/24 08:45 Pulse 61 02/20/24 08:45 Resp 16 02/20/24 08:45 BP 105/42 02/20/24 08:45 Pulse Ox 99 02/20/24 08:46 FiO2 Intake & Output 02/19/24 02/20/24 02/20/24 18:59 06:59 18:59 Intake Total 618 118 Output Total 2500 0 Balance -1882 0 118 Weight 72.6 kg Intake: Oral 118 118 Hemodialysis 500 Output: Urine 0 Hemodialysis 2500 Other: # Bowel Movements 1 - Exam patient is awake, comfortable, no acute distress Examination of the heart S1 and S2 Examination of the lungs bilateral breath sounds are heard Abdomen is soft nontender Examination of lower extremities shows no significant edema. CURRICULUM ASSISTANT exam grossly intact - Labs CBC & Chem 7: 02/19/24 10:06 02/19/24 10:06 Labs: Abnormal Lab Results - Last 24 Hours (Table) 02/19/24 02/19/24 02/19/24 Range/Units 10:06 10:06 10:06 RBC 2.37 L (4.30-5.90) m/uL Hgb 7.9 L (13.0-17.5) gm/dL Hct 23.9 L (39.0-53.0) % MCV 100.9 H (80.0-100.0) fL RDW 19.9 H (11.5-15.5) % Lymphocytes # 0.8 L (1.0-4.8) k/uL PT 13.6 H (10.0-12.5) sec INR 1.3 H (<1.2) Sodium 132 L (137-145) mmol/L Potassium 3.3 L (3.5-5.1) mmol/L Chloride 95 L (98-107) mmol/L BUN 32 H (9-20) mg/dL Creatinine 4.30 H (0.66-1.25) mg/dL Calcium 8.3 L (8.4-10.2) mg/dL Microbiology - Last 24 Hours (Table) 02/15/24 23:05 Blood Culture - Preliminary Blood 02/15/24 22:50 Blood Culture - Preliminary Blood Assessment and Plan Assessment: 1. End-stage renal disease maintained on hemodialysis on Saturday schedule. 2. Chronic systolic CHF with ejection fraction of 50% with moderate to severe mitral and tricuspid regurgitation. 3. Symptomatic Anemia with CKD. Hb 6.9 on presentation. status post packed RBCs transfusion. 4. Supratheraputic INR s/p Vit K. 5. Chronic disease mineral bone disease maintained on Renvela. 6. Hypertension with CKD 7. Epistaxis with elevated INR Plan: maintain hemodialysis on Saturday schedule. continue Aranesp
--- NOTE | 2024-02-20 10:55 | P.DS ---
Providers Date of admission: 02/15/24 19:28 Expected date of discharge: 02/20/24 Attending physician: Alvaro Foster MD Consults: 02/15/24 15:53 Consult Physician Routine Consulting Provider: Melly Loo Consult Reason/Comments: crf Do you want consulting provider notified?: Yes 02/16/24 13:57 Consult Physician Routine Consulting Provider: Benji Barros Consult Reason/Comments: gi bleed? Do you want consulting provider notified?: Yes Consult Physician Routine Consulting Provider: Winnie Casanova Consult Reason/Comments: pneumonia? Do you want consulting provider notified?: Yes 02/16/24 13:58 Consult Physician Routine Consulting Provider: Morena Pope Consult Reason/Comments: pneumonia Do you want consulting provider notified?: Yes 02/17/24 12:59 Consult Physician Routine Consulting Provider: Efren Navas Consult Reason/Comments: nosebleeds Do you want consulting provider notified?: Yes Primary care physician: Alvaro Foster MD Hospital Course: Final Diagnoses: Increased weakness in a patient with history of cardiorenal syndrome, chronic anemia, Coumadin coagulopathy, multifactorial. Possibly acute on symptomatic chronic anemia secondary to Coumadin coagulopathy, status post transfusion of packed RBCs. General surgery following. Coumadin coagulopathy Symptomatic anemia of chronic disease secondary to epistaxis, related to Coumadin coagulopathy Possible community-acquired right lower lobe pneumonia with elevated procalcitonin Chronic diastolic CHF, IV push diuretics ([facility] reporting EF 50 to 55% 01/27) End-stage renal disease on hemodialysis Chronic atrial fibrillation History of pacemaker implantation, complete heart block CAD Severe pulmonary hypertension Moderate to severe mitral regurgitation Moderate to severe tricuspid regurgitation Multivalvular heart disease including mild aortic stenosis Pressure ulcers stage II x 2, right buttocks, present on admission Hospital course:This is an 79-year-old gentleman admitted with generalized weakness, Coumadin coagulopathy, epistaxis, anemia, end-stage renal disease on hemodialysis, chronic atrial fibrillation and multiple other medical issues. Scheduled for hemodialysis today. ER reported patient had multiple nosebleeds throughout the week, last one yesterday. stated he was having trouble standing, walking and performing his ADLs. No triggers reported, did notice that it worsens after hemodialysis. Patient on Coumadin for his atrial fibrillation at home, INR 7.2 on admission. Coumadin placed on hold, received vitamin K , decreased to 5.9 yesterday.received 1 unit packed RBCs yesterday for hemoglobin of 6.9 , increased to 8 and currently decreased to 7.1. General surgery consult in place for potential endoscopies. maintained on IV antibiotics of ceftriaxone and azithromycin for possible community-acquired pneumonia, right lower lobe. Procalcitonin level elevated, 0.62, CRP 2.1, afebrile, normal WBC. Preliminary blood cultures reporting no growth after 24 hours. Denies chest pain, palpitations or shortness of breath. Oxygen weaned off and maintaining O2 sats in the high 90s on room air.Evaluated by speech therapy, reporting no overt sig ns or symptoms of aspiration observed, recommended continuing regular diet thin liquids. 02/18/2024 tolerated hemodialysis yesterday with no bleeding from fistula site reported. Staff reporting family complaining of patient having significant bleeding from fistula site post hemodialysis ;coming home with blood on his shirt. Nephrology notified. Ambulated in hallway, tolerating well with walker and PT. afebrile, normal WBC, preliminary blood cultures reporting no growth after 48 hours. Hemoglobin 8.2, platelets 236. INR 1.7. Maintained on ceftriaxone for possible pneumonia, maintaining O2 sats in the 90s on 2 L nasal cannula. 02/19/2024 receiving hemodialysis this morning. INR 1.3, anticoagulated on Coumadin as per pharmacy dosing. Hemoglobin 7.9, platelets 214 .maintaining O2 sats in the 90s on 3 L nasal cannula. Pulmonary recommending to continue on antibiotics given patient's procalcitonin was elevated at 0.62. Afebrile, normal WBC, blood cultures reporting no growth after 72 hours. Sodium 132, potassium 3.3-electrolyte supplementation as per nephrology. evaluated by PT yesterday recommending subacute rehab. Antibiotics of ceftriaxone resumed as per pulmonary's recommendations to continue antibiotics .Daily PT/INR with Coumadin per pharmacy dosing. close monitoring of hemoglobin, platelets, INR with repeat labs ordered for a.m. hemodialysis as per nephrology. Significant clinical improvement. INR currently at 1.4 on Coumadin per pharmacy dosing. Hemoglobin 8.4, platelets 253. denies chest pain, palpitations or shortness of breath. Maintaining O2 sats in the 90s on room air. Earlier this morning patient was agreeable to subacute rehab;per case management patient does not qualify due to his total ambulating distance of 175 feet. Patient will be discharged home home care today in a stable condition with guarded prognosis. The impression and plan of care has been dictated as directed. : I performed a history and examination of this patient, discussed the same with the dictator. I agree with the dictator's note ,documented as a scribe. Any additional findings or plans will be noted. Patient Condition at Discharge: Stable Plan - Discharge Summary Discharge Rx Participant: No New Discharge Prescriptions: New Cefuroxime [Ceftin] 250 mg PO DAILY 2 Days #2 tab Docusate [Colace] 100 mg PO DAILY PRN cap PRN Reason: Constipation Continue Dialyvite 1 tab PO HS Sevelamer Carbonate 1,600 mg PO TID-W/MEALS levOCARNitine [Levocarnitine] 330 mg PO HS Furosemide [Lasix] 40 mg PO BID Atorvastatin [Lipitor] 20 mg PO DAILY Sildenafil [Revatio] 20 mg PO BID traZODone HCL [Desyrel] 50 mg PO HS Aspirin EC [Ecotrin Low Dose] 81 mg PO DAILY Warfarin [Coumadin] 2 mg PO MOTUWETHFR@2100 Omeprazole 20 mg PO HS carvediloL [Coreg] 3.125 mg PO BID Warfarin [Coumadin] 3 mg PO SUSA@2100 Discharge Medication List Aspirin EC [Ecotrin Low Dose] 81 mg PO DAILY 08/04/21 [History] Dialyvite 1 tab PO HS 08/04/21 [History] Sevelamer Carbonate 1,600 mg PO TID-W/MEALS 08/28/22 [History] levOCARNitine [Levocarnitine] 330 mg PO HS 01/15/23 [History] Atorvastatin [Lipitor] 20 mg PO DAILY 05/16/23 [History] Furosemide [Lasix] 40 mg PO BID 05/16/23 [History] Sildenafil [Revatio] 20 mg PO BID 05/16/23 [History] Warfarin [Coumadin] 2 mg PO MOTUWETHFR@2100 01/10/24 [History] Omeprazole 20 mg PO HS 02/15/24 [History] Warfarin [Coumadin] 3 mg PO SUSA@2100 02/15/24 [History] carvediloL [Coreg] 3.125 mg PO BID 02/15/24 [History] traZODone HCL [Desyrel] 50 mg PO HS 02/15/24 [History] Cefuroxime [Ceftin] 250 mg PO DAILY 2 Days #2 tab 02/20/24 [Rx] Docusate [Colace] 100 mg PO DAILY PRN cap 02/20/24 [Rx] Follow up Appointment(s)/Referral(s): Melly Loo MD [STAFF PHYSICIAN] - 1 Week (Your physician will see you at your next dialysis appointment. ) Alvaro Foster MD [Primary Care Provider] - 3 Days (The office will call you with and appointment time and date. ) [facility] Visiting Nurse, [NON-STAFF] - Ambulatory/Diagnostic Orders: Complete Blood Count w/diff [LAB.AMB] Time Frame: 02/24/24, Location: None Selected Patient Instructions/Handouts: Vitamin K in Foods (DC), Anemia (DC), Warfarin Toxicity (ED) Activity/Diet/Wound Care/Special Instructions: Case management reporting patient does not qualify for subacute rehab and that patient request to go home. Home care with PT. HD as per nephrology Discharge Disposition: HOME WITH HOME HEALTH SERVICES
[2024-02-20 11:11] VITALS: TEMP 97.7
[2024-02-20 11:40] LABS: Anisocytosis Moderate; Basophils % (A) 0 %; Eosinophils # (A) 0.1 k/uL (0-0.7); Eosinophils % (A) 2 %; HCT 26.9 % (39.0-53.0); HGB 8.4 gm/dL (13.0-17.5); Hypochromasia Slight; Lymphocytes # (A) 0.7 k/uL (1.0-4.8); Lymphocytes % (A) 10 %; MCH 32.6 pg (25.0-35.0); MCHC 31.2 g/dL (31.0-37.0); MCV 104.4 fL (80.0-100.0); Macrocytosis Moderate; Mean Platelet Volume 7.5; Monocytes # (A) 0.4 k/uL (0-1.0); Monocytes % (A) 6 %; Neutrophils # (A) 5.2 k/uL (1.3-7.7); Neutrophils % (A) 79 %; Platelet Count 253 k/uL (150-450); RBC 2.57 m/uL (4.30-5.90); RDW 20.6 % (11.5-15.5); WBC 6.6 k/uL (3.8-10.6)
--- NOTE | 2024-02-20 11:47 | P.PN ---
Subjective Progress Note Date: 02/20/24 Principal diagnosis: Anemia. This is an 79-year-old white male with history of rectal problems including end- stage renal disease, on hemodialysis, missed his last hemodialysis last Saturday but not on Saturday. Patient presented to the ER with chronic weakness on and off for the last 6 months. Patient also had intermittent episodes of nausea and vomiting, feels generally weak. Patient denies any melena, denies any hematemesis, however he did have history of nosebleeds. Workup in the ER revealed that his INR is elevated at 5.9, patient is on Coumadin it also revealed a hemoglobin of 6.9, chest x-ray showed evidence of right lower lobe pneumonia, patient is not a great historian, denies any cough denies any fever or chills, but nonetheless he feels generally weak. Considering his abnormal chest x-ray, this consult was initiated. Patient has been seen already by ne phrology and he was seen by the admitting physician, already placed on antibiotics in the form of Rocephin and Zithromax. Again the patient is a very poor historian, seems to be confused, and he could not give me a very adequate history when asked if short of breath or if he is having any cough symptoms patient denied. Progress note dated February 17, 2024. The patient is seen today in the emergency department, room 25. The patient was admitted with a diagnosis of anemia, end-stage renal disease currently on hemodialysis, and weakness. The patient was lying in bed, and wanted to sit up to eat his breakfast. He was extremely weak, and myself and my nurse practitioner had to help him sit up. He is currently on 2 L of oxygen. Chest x-ray is showing possible pneumonia right lower lobe. He was placed on Rocephin and azithromycin. We did put in for a procalcitonin level. Current laboratory data includes a white count 6.5, hemoglobin 7.1, hematocrit 23, and a platelet count of 232,000. The patient's PTT was 58 with an INR of 5.9. Sodium 133, potassium 4.2, chloride 96, CO2 24, BUN 69, and creatinine 7.26. Calcium is 8.2. C-reactive protein is 2.1. Procalcitonin level is elevated at 0.62. Blood cultures are currently pending are negative. Chest x-ray shows some mild pulmonary vascular congestion, and some patchy opacities in the right base. Progress note dated February 18, 2024. The patient is seen today in room 371. The patient appears to be a bit more clinically stable today than yesterday when we saw him in the emergency department. He continues on oxygen at 2 L by nasal cannula. He has received 1 unit of packed red blood cells. He is not getting any IV fluids. The patient's procalcitonin level was 0.62, and he continues on Rocephin for possible underlying pneumonia. Labs today include a white count 7.1, hemoglobin 8.2, hematocrit 24.8, and a platelet count of 236,000. PT is 17.3 with an INR of 1.7. Blood cultures are currently negative or pending. Progress note dated February 19, 2024. The patient is seen today in room 371. The patient is undergoing hemodialysis. The plan is to remove 2 L of fluid off this patient. He is currently on oxygen at 2 L. He is not receiving any IV fluids. Current labs include a white count 5.2, hemoglobin 7.9, hematocrit 23.9, and a platelet count of 214,000. Sodium 132, potassium 3.3, chloride 95, CO2 30, BUN 32, creatinine 4.30. Calcium is 8.3. Procalcitonin from 16 February was 0.62. Blood cultures are currently negative. Progress note dated February 20, 2024. The patient is seen today in room 371. The patient has been weaned off of oxygen. He is now on room air. He is walking around the room with his cane. He is got no IV fluids running. The patient typically has Saturday, Saturday, and Saturday hemodialysis. Since being here in the hospital, he has received 1 unit of packed red blood cells. We saw him initially in the emergency department, please see my note above. Current labs include a white count 6.6, hemoglobin 8.4, hematocrit 26.9, and a platelet count of 253,000. No additional labs are noted. Blood cultures are currently negative. No recent chest x-rays or other x-rays to report. Objective - Vital Signs Vital signs: Vital Signs Temp 97.7 F 02/20/24 08:45 Pulse 61 02/20/24 08:45 Resp 16 02/20/24 08:45 BP 105/42 02/20/24 08:45 Pulse Ox 99 02/20/24 08:46 FiO2 Intake & Output 02/19/24 02/20/24 02/20/24 18:59 06:59 18:59 Intake Total 618 118 Output Total 2500 0 Balance -1882 0 118 Weight 72.6 kg Intake: Oral 118 118 Hemodialysis 500 Output: Urine 0 Hemodialysis 2500 Other: # Bowel Movements 1 - Exam No acute distress, oriented 3. The patient is very profoundly weak. He continues on room air. HEENT examination is grossly unremarkable. Mucous membranes are moist. No oral lesions. Neck supple. Full range of motion. No adenopathy thyromegaly or neck vein distention. Cardiovascular examination reveals regular rhythm rate. S1-S2 normal. No S3 or S4. No discernible murmur noted. Heart rate 81 bpm. Lungs reveal scattered crackles. No wheezes or rhonchi. Saturations are 97% on room air. Abdomen soft bowel sounds are heard. No masses or tenderness. Extremities are intact. No cyanosis clubbing or edema. Skin is without rash or lesion. Neurologic examination is brief but nonfocal. - Labs CBC & Chem 7: 02/20/24 11:02 02/19/24 10:06 Labs: Abnormal Lab Results - Last 24 Hours (Table) 02/20/24 Range/Units 11:02 RBC 2.57 L (4.30-5.90) m/uL Hgb 8.4 L (13.0-17.5) gm/dL Hct 26.9 L (39.0-53.0) % MCV 104.4 H (80.0-100.0) fL RDW 20.6 H (11.5-15.5) % Lymphocytes # 0.7 L (1.0-4.8) k/uL Microbiology - Last 24 Hours (Table) 02/15/24 23:05 Blood Culture - Preliminary Blood 02/15/24 22:50 Blood Culture - Preliminary Blood Assessment and Plan Assessment: Possible right lower lobe pneumonia, community-acquired. Procalcitonin level is elevated. End-stage renal disease, currently on hemodialysis. Chronic diastolic CHF. Coumadin induced coagulopathy. Benign essential hypertension. History of chronic kidney disease. Chronic atrial fibrillation. History of degenerative joint disease. Anemia, likely related to anemia of chronic disease. Plan: Plan dated February 17, 2024. The patient continues on appropriate antibiotics, in the form of azithromycin and Rocephin. We will continue to follow make recommendations along the way. The patient's procalcitonin was elevated at 0.62. Labs, x-rays, and medications are reviewed. The patient is profoundly weak, and needed help sitting up in his bed. Labs, x-rays, and medications are reviewed. Prognosis is poor. The patient continues as a full code. Plan dated February 18, 2024. Patient is sitting in a chair next to his hospital bed. He is on 2 L of oxygen. The patient is not receiving any IV fluids. He has received 1 unit of packed red blood cells. He continues on Rocephin for possible pneumonia. Procalcitonin level was elevated at 0.62. Labs, x-rays, and medications are reviewed. We will continue to follow make recommendations along the way. Prognosis is guarded. Plan dated February 19, 2024. The patient should have an antibiotic, and looking at his medication list, I do not see one. The patient was previously on Rocephin. The patient's procalcit onin level was 0.62. He was admitted with a diagnosis of possible pneumonia, and initially was started on azithromycin and Rocephin. Labs, x-rays, medications are reviewed. It would be my recommendation to get the patient back on an antibiotic. I will leave that up to the primary service. No additional recommendations are made. Labs, x-rays, and medications are reviewed. Plan dated February 20, 2024. The patient is doing well. He currently remains on Rocephin. He continues on Coumadin as well. The patient gets hemodialysis, Saturday, Saturday, and Saturday. Labs, x-rays, medications are reviewed. The patient was admitted with a possible diagnosis of pneumonia, involving the right lower lobe. The patient initially received azithromycin and Rocephin. The patient continues on Rocephin as mentioned above. Labs, x-rays, medications are reviewed. We will continue to follow, should the patient not be discharged. The patient is currently on room air. He does not feel short of breath, or having any complaints of chest tightness, wheezing, cough, or phlegm production. Additional recommendations and suggestions are forthcoming. Prognosis is guarded. Time with Patient: Less than 30
[2024-02-20 11:48] LABS: INR 1.4 (<1.2); Prothrombin Time 14.5 sec (10.0-12.5)
[2024-02-20 12:00] LABS: African American GFR (CKD) 14 (>60 ml/min/1.73 sqM); Anion Gap 7 mmol/L; Blood Urea Nitrogen 28 mg/dL (9-20); Carbon Dioxide 31 mmol/L (22-30); Chloride 95 mmol/L (98-107); Glucose 104 mg/dL (74-99); Non-African American GFR(CKD) 12 (>60 ml/min/1.73 sqM); Potassium 3.8 mmol/L (3.5-5.1); Sodium 133 mmol/L (137-145)
[2024-02-20 13:08] VITALS: BP 121/50; PULSE 58
--- NOTE | 2024-02-20 14:50 | P.PN ---
Subjective Progress Note Date: 02/19/24 Principal diagnosis: Reason for follow-up is pneumonia Patient is a 79-year-old male with a past medical history significant for atrial fibrillation end-stage renal disease on dialysis patient has been brought into the hospital for evaluation of lightheadedness and dizziness, did have a chest x-ray with airspace opacity right lung base concerning for possible pneumonia. On today's evaluation that is 02/19/2024,the patient remains to be afebrile, patient is on r 2 L nasal cannula supplemental oxygen and denies any shortness of breath no chest pain or any worsening cough.Patient denies having any nausea or vomiting, no abdominal pain and no diarrhea has been reported Patient did have white count of 5.2, creatinine 4.30 blood culture negative sputum not collected Objective - Vital Signs Vital signs: Vital Signs Temp 97.9 F 02/19/24 15:45 Pulse 60 02/19/24 15:45 Resp 16 02/19/24 15:45 BP 110/57 02/19/24 15:45 Pulse Ox 96 02/19/24 15:45 FiO2 Intake & Output 02/18/24 02/19/24 02/19/24 18:59 06:59 18:59 Intake Total 354 500 Output Total 0 2500 Balance 354 0 -2000 Weight 79.379 kg 74.7 kg Intake: Oral 354 Hemodialysis 500 Output: Urine 0 Hemodialysis 2500 Other: # Voids 0 # Bowel Movements 1 - Exam GENERAL DESCRIPTION: An elderly male lying in bed in no distress RESPIRATORY SYSTEM: Unlabored breathing , decreased breath sounds at bases HEART: S1 S2 regular rate and rhythm , ABDOMEN: Soft , no tenderness EXTREMITIES: No edema feet - Labs CBC & Chem 7: 02/20/24 11:02 02/20/24 11:02 Labs: Abnormal Lab Results - Last 24 Hours (Table) 02/19/24 02/19/24 02/19/24 Range/Units 10:06 10:06 10:06 RBC 2.37 L (4.30-5.90) m/uL Hgb 7.9 L (13.0-17.5) gm/dL Hct 23.9 L (39.0-53.0) % MCV 100.9 H (80.0-100.0) fL RDW 19.9 H (11.5-15.5) % Lymphocytes # 0.8 L (1.0-4.8) k/uL PT 13.6 H (10.0-12.5) sec INR 1.3 H (<1.2) Sodium 132 L (137-145) mmol/L Potassium 3.3 L (3.5-5.1) mmol/L Chloride 95 L (98-107) mmol/L BUN 32 H (9-20) mg/dL Creatinine 4.30 H (0.66-1.25) mg/dL Calcium 8.3 L (8.4-10.2) mg/dL Microbiology - Last 24 Hours (Table) 02/15/24 23:05 Blood Culture - Preliminary Blood 02/15/24 22:50 Blood Culture - Preliminary Blood Assessment and Plan (1) Pneumonia Current Visit: Yes Status: Acute Code(s): J18.9 - PNEUMONIA, UNSPECIFIED ORGANISM SNOMED Code(s): 477089947 Plan: 1patient presented hospital with generalized weakness also complaining of nosebleed in this patient on admission to the hospital did have significant elevated INR may be responsible for some of his symptoms however the patient also have a chest x-ray with right sided infiltrate suspicious for pneumonia. 2patient did have elevated procalcitonin of 0.62 sputum was not collected blood culture has been negative 3patient seem to have shown some clinical improvement and will continue with R ocephin and continue supportive care Dictation was produced using [employer] dictation software. please excuse any grammatical, word or spelling errors. Time with Patient: Less than 30
--- NOTE | 2024-02-20 14:51 | P.PN ---
Subjective Progress Note Date: 02/20/24 Principal diagnosis: Reason for follow-up is pneumonia Patient is a 79-year-old male with a past medical history significant for atrial fibrillation end-stage renal disease on dialysis patient has been brought into the hospital for evaluation of lightheadedness and dizziness, did have a chest x-ray with airspace opacity right lung base concerning for possible pneumonia. On today's evaluation that is 02/20/2024, the patient continues to be afebrile, the patient is on room air and breathing comfortably, the Pt denies having any chest pain or cough, the patient denies having any abdominal pain no vomiting or any diarrhea has been reported by the nursing staff, feeling better. Patient did have white count of 6.6, creatinine 4.37 Objective - Vital Signs Vital signs: Vital Signs Temp 97.7 F 02/20/24 08:45 Pulse 58 L 02/20/24 12:05 Resp 16 02/20/24 12:05 BP 121/50 02/20/24 12:05 Pulse Ox 99 02/20/24 08:46 FiO2 Intake & Output 02/19/24 02/20/24 02/20/24 18:59 06:59 18:59 Intake Total 618 118 Output Total 2500 0 Balance -1882 0 118 Weight 72.6 kg Intake: Oral 118 118 Hemodialysis 500 Output: Urine 0 Hemodialysis 2500 Other: # Voids 1 # Bowel Movements 1 - Exam GENERAL DESCRIPTION: An elderly male lying in bed in no distress RESPIRATORY SYSTEM: Unlabored breathing , decreased breath sounds at bases HEART: S1 S2 regular rate and rhythm , ABDOMEN: Soft , no tenderness EXTREMITIES: No edema feet - Labs CBC & Chem 7: 02/20/24 11:02 02/20/24 11:02 Labs: Abnormal Lab Results - Last 24 Hours (Table) 02/20/24 02/20/24 02/20/24 Range/Units 11:02 11:02 11:02 RBC 2.57 L (4.30-5.90) m/uL Hgb 8.4 L (13.0-17.5) gm/dL Hct 26.9 L (39.0-53.0) % MCV 104.4 H (80.0-100.0) fL RDW 20.6 H (11.5-15.5) % Lymphocytes # 0.7 L (1.0-4.8) k/uL PT 14.5 H (10.0-12.5) sec INR 1.4 H (<1.2) Sodium 133 L (137-145) mmol/L Chloride 95 L (98-107) mmol/L Carbon Dioxide 31 H (22-30) mmol/L BUN 28 H (9-20) mg/dL Creatinine 4.37 H (0.66-1.25) mg/dL Glucose 104 H (74-99) mg/dL Microbiology - Last 24 Hours (Table) 02/15/24 23:05 Blood Culture - Preliminary Blood 02/15/24 22:50 Blood Culture - Preliminary Blood Assessment and Plan (1) Pneumonia Current Visit: Yes Status: Acute Code(s): J18.9 - PNEUMONIA, UNSPECIFIED ORGANISM SNOMED Code(s): 426601172 Plan: 1patient presented hospital with generalized weakness also complaining of nosebleed in this patient on admission to the hospital did have significant elevated INR may be responsible for some of his symptoms however the patient also have a chest x-ray with right sided infiltrate suspicious for pneumonia. 2patient did have elevated procalcitonin of 0.62 sputum was not collected blood culture has been negative 3patient has shown clinical improvement and has received adequate antibiotics for possible community-acquired pneumonia no need for antibiotics on discharge Dictation was produced using [employer] dictation software. please excuse any grammatical, word or spelling errors. Time with Patient: Less than 30
[2024-02-20] MEDS ORDERED: WARFARIN 2 MG TAB PO ONE (18:00)
== END 2024-02-20 15:44 | disposition home health service (06) | DRG 813 ==
LOC: EC 14:15 → 3SCARD 19:28
PROVIDERS: ADMIT Family Medicine; ATTEND Family Medicine
PROC: 30233N1 Transfusion of Nonautologous Red Blood Cells into Peripheral Vein, Percutaneous Approach (ICD-10-PCS; principal; 2024-02-15)
PROC: 5A1D70Z Performance of Urinary Filtration, Intermittent, Less than 6 Hours Per Day (ICD-10-PCS; 2024-02-17)
DX: D68.32 Hemorrhagic disorder due to extrinsic circulating anticoagulants (principal); J18.9 Pneumonia, unspecified organism; N18.6 End stage renal disease; D62 Acute posthemorrhagic anemia; I50.42 Chronic combined systolic (congestive) and diastolic (congestive) heart failure; I13.2 Hypertensive heart and chronic kidney disease with heart failure and with stage 5 chronic kidney disease, or end stage renal disease; I48.20 Chronic atrial fibrillation, unspecified; E87.20 Acidosis, unspecified; I44.2 Atrioventricular block, complete; I95.1 Orthostatic hypotension; D63.1 Anemia in chronic kidney disease; E11.22 Type 2 diabetes mellitus with diabetic chronic kidney disease; E11.51 Type 2 diabetes mellitus with diabetic peripheral angiopathy without gangrene; Z79.899 Other long term (current) drug therapy; T45.515A Adverse effect of anticoagulants, initial encounter; R04.0 Epistaxis; E83.9 Disorder of mineral metabolism, unspecified; L89.312 Pressure ulcer of right buttock, stage 2; I08.3 Combined rheumatic disorders of mitral, aortic and tricuspid valves; I25.10 Atherosclerotic heart disease of native coronary artery without angina pectoris; I27.20 Pulmonary hypertension, unspecified; Z99.2 Dependence on renal dialysis; Z86.16 Personal history of COVID-19; Z96.641 Presence of right artificial hip joint; Z95.5 Presence of coronary angioplasty implant and graft; Z95.0 Presence of cardiac pacemaker; Z71.3 Dietary counseling and surveillance; Z79.82 Long term (current) use of aspirin; Z79.01 Long term (current) use of anticoagulants; Z11.52 Encounter for screening for COVID-19
CPT/HCPCS: 36415; 36430; 70450; 71046; 80048; 80053; 82272; 83540; 83550; 83605; 83735; 84145; 85025; 85027; 85610; 85730; 86140; 86850; 86900; 86901; 86920; 87040; 87636; 90935; 93005; 94760; 96361; 96365; 96366; 96367; 96375; 99285

== ENCOUNTER 2024-05-02 02:30 | Inpatient (IN) | payer MEDICARE ==
[2024-05-02] MEDS: MORPHINE SULFATE 4 MG/ML SYRINGE IV STA (03:45)
--- NOTE | 2024-05-02 03:51 | ED ---
Fall HPI - General Chief Complaint: Fall Stated Complaint: fall Time Seen by Provider: 05/02/24 02:53 Source: EMS Mode of arrival: EMS - History of Present Illness Initial Comments: This patient is an 79-year-old man who arrives to have a evaluation for lower left leg injury. Patient states that he was standing in the kitchen, he went to shift footing and then fell. He experienced pain and then was not able to bear any weight on his left leg. Family called EMS who did place splint as his leg appeared to have deformity and transported him here. He also received morphine during transportation. Patient declined additional analgesia on arrival. MD Complaint: fall -: minutes(s) Fall From: standing When Fall Occurred: just prior to arrival Fall Witnessed: yes, by family Place Fall Occurred: home Loss of Consciousness: none Prolonged Down Time?: no Symptoms Prior to Fall: none Location - Extremities: Left: Leg Severity: severe Quality: sharp Context: tripped/slipped Associated Symptoms: denies - Related Data Home Medications Medication Instructions Recorded Confirmed Aspirin EC [Ecotrin Low Dose] 81 mg PO DAILY 08/04/21 05/02/24 Dialyvite 1 tab PO HS 08/04/21 05/02/24 Sevelamer Carbonate 1,600 mg PO TID-W/MEALS 08/28/22 05/02/24 levOCARNitine [Levocarnitine] 330 mg PO HS 01/15/23 05/02/24 Atorvastatin [Lipitor] 20 mg PO DAILY 05/16/23 05/02/24 Furosemide [Lasix] 40 mg PO BID 05/16/23 05/02/24 Sildenafil [Revatio] 20 mg PO BID 05/16/23 05/02/24 Warfarin [Coumadin] 2 mg PO [id number]/10/24 05/02/24 Omeprazole 20 mg PO HS 02/15/24 05/02/24 Warfarin [Coumadin] 3 mg PO [id number]@209902/15/24 05/02/24 carvediloL [Coreg] 3.125 mg PO HS 02/15/24 05/02/24 traZODone HCL [Desyrel] 50 mg PO HS 02/15/24 05/02/24 Sevelamer [Renvela] 1,600 mg PO DAILY PRN 05/02/24 05/02/24 buPROPion XL [Wellbutrin XL] 150 mg PO HS 05/02/24 05/02/24 methylPREDNISolone [Medrol Dose See Taper PO DIRECTED 05/02/24 05/02/24 Pack] Previous Rx's Medication Instructions Recorded HYDROcodone/APAP 5-325MG [Tye 5] 1 each PO Q6HR PRN #30 tab 05/07/24 Sennosides-Docusate Sodium 2 tab PO DAILY #30 tablet 05/07/24 [Senokot-S] Allergies Allergy/AdvReac Type Severity Reaction Status Date / Time No Known Allergies Allergy Verified 05/02/24 10:28 Review of Systems ROS Statement: Those systems with pertinent positive or pertinent negative responses have been documented in the HPI. ROS Other: All systems not noted in ROS Statement are negative. Constitutional: Denies: fever, weakness Respiratory: Denies: cough, dyspnea Cardiovascular: Denies: chest pain, palpitations, edema, syncope Gastrointestinal: Denies: abdominal pain, vomiting, diarrhea Musculoskeletal: Reports: as per HPI. Denies: back pain Skin: Denies: rash Neurological: Denies: headache, weakness Past Medical History Past Medical History: Atrial Fibrillation, Dialysis, Eye Disorder Additional Past Medical History / Comment(s): heart murmur, Kidney Failure- Dialysis MOWEFR-has little urine output,approx twice per day,pt thinks may be on fluid restrictions checking with dialysis on 01-16-23 to confirm how much fluids per day he can have. Cataracts. History of Any Multi-Drug Resistant Organisms: None Reported Past Surgical History: Joint Replacement, Pacemaker Additional Past Surgical History / Comment(s): Cardiac stents, right hip replacement,left upper arm av fistula Past Anesthesia/Blood Transfusion Reactions: No Reported Reaction Additional Past Anesthesia/Blood Transfusion Reaction / Comment(s): no problems with prior blood transfusion Type of Cardiac Device: Unknown Device Placement Date:: 2010 Past Psychological History: No Psychological Hx Reported Smoking Status: Never smoker Past Alcohol Use History: None Reported Past Drug Use History: None Reported - Past Family History Father Family Medical History: Hypertension Brother(s) Family Medical History: Cancer Additional Family Medical History / Comment(s): 2 brothers of cancer. General Exam General appearance: alert, in no apparent distress Head exam: Present: atraumatic, normocephalic Eye exam: Present: normal appearance. Absent: scleral icterus, conjunctival injection ENT exam: Present: normal oropharynx Neck exam: Present: normal inspection, full ROM. Absent: tenderness Respiratory exam: Present: rales (Few crackles at bilateral bases). Absent: respiratory distress, wheezes, rhonchi, stridor, accessory muscle use Cardiovascular Exam: Present: regular rate, normal rhythm, normal heart sounds. Absent: systolic murmur, diastolic murmur, rubs, gallop GI/Abdominal exam: Present: soft. Absent: distended, tenderness, guarding, rebound, rigid, mass Extremities exam: Present: full ROM, tenderness, normal capillary refill, other (There is deformity at the distal tib-fib area.). Absent: pedal edema Back exam: Present: normal inspection. Absent: vertebral tenderness Neurological exam: Present: alert. Absent: motor sensory deficit Skin exam: Present: warm, dry, intact, normal color. Absent: rash Course Vital Signs 05/02/24 05/02/24 05/02/24 02:32 03:35 04:24 Temperature 99.0 F Pulse Rate 63 60 61 Respiratory 18 18 18 Rate Blood Pressure 130/54 136/74 138/77 O2 Sat by Pulse 98 100 96 Oximetry 05/02/24 05/02/24 05/02/24 05:00 06:00 08:08 Temperature Pulse Rate 65 62 60 Respiratory 18 18 16 Rate Blood Pressure 140/64 162/76 139/70 O2 Sat by Pulse 97 97 99 Oximetry 05/02/24 05/02/24 10:00 10:37 Temperature Pulse Rate 64 63 Respiratory 16 16 Rate Blood Pressure 158/78 142/73 O2 Sat by Pulse 99 97 Oximetry Medical Decision Making - Medical Decision Making The patient had x-ray of the lower portion of the leg that did, by my interpretation show a comminuted distal tibia/fibula fracture. The patient had CT scan of the brain which I interpreted as negative for acute bony injury, negative for acute intracranial hemorrhage. The patient had chest x-ray that I interpreted as showing pulmonary vascular congestion consistent with degree of CHF. Was pt. sent in by a medical professional or institution (, PA, MESH WORKER, urgent care, hospital, or intermediate...) When possible be specific @ -[No] Did you speak to anyone other than the patient for history (EMS, parent, family, police, friend...)? What history was obtained from this source @ -[EMS contributed some history Did you review nursing and triage notes (agree or disagree)? Why? @ -[I reviewed and agree with nursing and triage notes] Were old charts reviewed (outside hosp., previous admission, EMS record, old EKG, old radiological studies, urgent care reports/EKG's, intermediate records)? Report findings @ -[No old charts were reviewed] Differential Diagnosis (chest pain, altered mental status, abdominal pain women, abdominal pain men, vaginal bleeding, weakness, fever, dyspnea, syncope, headache, dizziness, GI bleed, back pain, seizure, CVA, palpatations, mental health, musculoskeletal)? @ -[Differential Musculoskeletal Muscular strain, contusion, ligament sprain, fracture, arthritis, septic arthritis, bursitis, cellulitis, muscle spasm, nerve compression, DVT, arterial occlusion, herpes zoster, electrolyte abnormality, tumor.... This is not meant to be in all inclusive list EKG interpreted by me (3pts min.). @ -[I interpreted as above] X-rays interpreted by me (1pt min.). @ -[I interpreted as above CT interpreted by me (1pt min.). @ -[I interpreted as above U/S interpreted by me (1pt. min.). @ -[None done] What testing was considered but not performed or refused? (CT, X-rays, U/S, labs)? Why? @ -[None] What meds were considered but not given or refused? Why? @ -[None] Did you discuss the management of the patient with other professionals (professionals i.e. , PA, MESH WORKER, lab, RT, psych nurse, social service technician, manager in home, teacher, aerospace engineer officer armament, manager rn case)? Give summary @ -Case discussed with the orthopedic surgeon on-call and treatment recommendations are incorporated. Was smoking cessation discussed for >3mins.? @ -[No] Was critical care preformed (if so, how long)? @ -[No] Were there social determinants of health that impacted care today? How? (Homelessness, low income, unemployed, alcoholism, drug addiction, transportation, low edu. Level, literacy, decrease access to med. care, fci, rehab)? @ -[No] Was there de-escalation of care discussed even if they declined (Discuss DNR or withdrawal of care, Hospice)? DNR status @ -[No] What co-morbidities impacted this encounter? (DM, HTN, Smoking, COPD, CAD, Cancer, CVA, ARF, Chemo, Hep., AIDS, mental health diagnosis, sleep apnea, morbid obesity)? @ -[Chronic renal failure. Atrial fibrillation on Coumadin Was patient admitted / discharged? Hospital course, mention meds given and route, prescriptions, significant lab abnormalities, going to OR and other pertinent info. @ -[Patient is an 79-year-old man here to have evaluation after fall. The patient does have fracture which will require surgical repair and the patient is admitted. Case discussed with orthopedic surgery and will require presurgical clearance. Given the fall and patient's Coumadin level, as well as the fact that he will be going undergoing surgery CT scan of the brain is obtained to rule out intracranial hemorrhage. Undiagnosed new problem with uncertain prognosis? @ -[No] Drug Therapy requiring intensive monitoring for toxicity (Heparin, Nitro, Insulin, Cardizem)? @ -[No] Were any procedures done? @ -[No] Diagnosis/symptom? @ -[Acute comminuted distal tibia/fibula fractures Chronic renal failure Anemia Congestive heart failure Supratherapeutic Coumadin level Acute, or Chronic, or Acute on Chronic? @ -[Acute Uncomplicated (without systemic symptoms) or Complicated (systemic symptoms)? @ -[Uncomplicated Side effects of treatment? @ -[No] Exacerbation, Progression, or Severe Exacerbation? @ -[No] Poses a threat to life or bodily function? How? (Chest pain, USA, PA, pneumonia, PE, COPD, DKA, ARF, appy, cholecystitis, CVA, Diverticulitis, Homicidal, Suicidal, threat to staff... and all critical care pts) @ -[Yes, given patient's comorbidities there is threat to life associated with treatment of the patient's fractures - Lab Data Result diagrams: 05/09/24 06:19 05/09/24 06:19 Lab Results 05/02/24 05/02/24 05/02/24 Range/Units 03:18 03:18 03:18 WBC 10.5 (3.8-10.6) k/uL RBC 2.61 L (4.30-5.90) m/uL Hgb 7.6 L (13.0-17.5) gm/dL Hct 24.4 L (39.0-53.0) % MCV 93.6 (80.0-100.0) fL MCH 29.2 (25.0-35.0) pg MCHC 31.2 (31.0-37.0) g/dL RDW 18.5 H (11.5-15.5) % Plt Count 296 (150-450) k/uL MPV 7.0 Neutrophils % 81 % Lymphocytes % 9 % Monocytes % 8 % Eosinophils % 1 % Basophils % 0 % Neutrophils # 8.4 H (1.3-7.7) k/uL Lymphocytes # 1.0 (1.0-4.8) k/uL Monocytes # 0.8 (0-1.0) k/uL Eosinophils # 0.1 (0-0.7) k/uL Basophils # 0.0 (0-0.2) k/uL Hypochromasia Marked Anisocytosis Slight Macrocytosis Slight PT 52.3 H (10.0-12.5) sec INR 5.3 H* (<1.2) APTT 36.4 H (22.0-30.0) sec Sodium 136 L (137-145) mmol/L Potassium 5.0 (3.5-5.1) mmol/L Chloride 97 L (98-107) mmol/L Carbon Dioxide 33 H (22-30) mmol/L Anion Gap 6 mmol/L BUN 42 H (9-20) mg/dL Creatinine 3.10 H (0.66-1.25) mg/dL Est GFR (CKD-EPI)AfAm 21 (>60 ml/min/1.73 sqM) Est GFR (CKD-EPI)NonAf 18 (>60 ml/min/1.73 sqM) Glucose 102 H (74-99) mg/dL Calcium 8.6 (8.4-10.2) mg/dL Total Bilirubin 0.8 (0.2-1.3) mg/dL AST 34 (17-59) U/L ALT 16 (4-49) U/L Alkaline Phosphatase 80 (38-126) U/L Total Protein 6.4 (6.3-8.2) g/dL Albumin 3.9 (3.5-5.0) g/dL - EKG Data -: EKG Interpreted by [facility] EKG shows normal: intervals (QRS duration 154 ms, QTc 493 ms, both normal), QRS complexes (Paced rhythm) Rate: normal (60 bpm) Interpretation: other (There is a paced rhythm) Disposition Clinical Impression: Fracture of tibia with fibula, left, closed, End stage renal disease, CHF (congestive heart failure), Fall, Anemia Disposition: ADMITTED IP TO THIS HOSP Condition: Serious Is patient prescribed a controlled substance at d/c from ED?: No
[2024-05-02 04:05] LABS: Anisocytosis Slight; Basophils % (A) 0 %; Eosinophils # (A) 0.1 k/uL (0-0.7); Eosinophils % (A) 1 %; HCT 24.4 % (39.0-53.0); HGB 7.6 gm/dL (13.0-17.5); Hypochromasia Marked; Lymphocytes % (A) 9 %; MCH 29.2 pg (25.0-35.0); MCHC 31.2 g/dL (31.0-37.0); MCV 93.6 fL (80.0-100.0); Macrocytosis Slight; Monocytes # (A) 0.8 k/uL (0-1.0); Monocytes % (A) 8 %; Neutrophils # (A) 8.4 k/uL (1.3-7.7); Neutrophils % (A) 81 %; Platelet Count 296 k/uL (150-450); RBC 2.61 m/uL (4.30-5.90); RDW 18.5 % (11.5-15.5); WBC 10.5 k/uL (3.8-10.6)
[2024-05-02 04:17] LABS: ALT 16 U/L (4-49); African American GFR (CKD) 21 (>60 ml/min/1.73 sqM); Albumin 3.9 g/dL (3.5-5.0); Anion Gap 6 mmol/L; Blood Urea Nitrogen 42 mg/dL (9-20); Calcium 8.6 mg/dL (8.4-10.2); Carbon Dioxide 33 mmol/L (22-30); Chloride 97 mmol/L (98-107); Glucose 102 mg/dL (74-99); Non-African American GFR(CKD) 18 (>60 ml/min/1.73 sqM); Sodium 136 mmol/L (137-145); Total Bilirubin 0.8 mg/dL (0.2-1.3); Total Protein 6.4 g/dL (6.3-8.2)
[2024-05-02 04:21] LABS: AST 34 U/L (17-59); Alkaline Phosphatase 80 U/L (38-126)
[2024-05-02 04:22] LABS: Partial Thromboplastin Time 36.4 sec (22.0-30.0); Prothrombin Time 52.3 sec (10.0-12.5)
[2024-05-02] MEDS: HYDROmorphone 0.5 MG/0.5 ML SYRINGE IVP STA (04:25)
[2024-05-02 04:27] LABS: INR 5.3 (<1.2)
--- NOTE | 2024-05-02 04:50 | XR ---
EXAM: XR Left Tibia and Fibula, 2 Views CLINICAL HISTORY: ITS.REASON XR Reason: fall inj TECHNIQUE: Frontal and lateral views of the left tibia and fibula. COMPARISON: No relevant prior studies available. IMPRESSION: Comminuted distal tibia and fibular fracture.
--- NOTE | 2024-05-02 04:55 | CT ---
EXAM: CT Head Without Intravenous Contrast CLINICAL HISTORY: ITS.REASON CT Reason: FALL, -LOC, +THINNERS TECHNIQUE: Axial computed tomography images of the head/brain without intravenous contrast. CTDI is 49 mGy and DLP is 1207 mGy-cm. This CT exam was performed using one or more of the following dose reduction techniques: automated exposure control, adjustment of the mA and/or kV according to patient size, and/or use of iterative reconstruction technique. COMPARISON: 02/15/2024 FINDINGS: Brain: No hemorrhage, herniation, or mass effect. Chronic microvascular ischemic changes. Ventricles: No hydrocephalus. Age related cerebral volume loss. Bones/joints: Unremarkable. Soft tissues: Unremarkable. Sinuses: No air fluid levels. Mastoid air cells: Clear. IMPRESSION: No acute hemorrhage, hydrocephalus, or mass effect.
--- NOTE | 2024-05-02 05:11 | CT ---
EXAM: CT Left Lower Extremity Without Intravenous Contrast CLINICAL HISTORY: ITS.REASON CT Reason: presurgical TECHNIQUE: Axial computed tomography images of the left lower extremity without intravenous contrast. CTDI is 3 mGy and DLP is 199.5 mGy-cm. This CT exam was performed using one or more of the following dose reduction techniques: automated exposure control, adjustment of the mA and/or kV according to patient size, and/or use of iterative reconstruction technique. COMPARISON: No relevant prior studies available. FINDINGS: Bones/joints: Comminuted fracture of the distal tibia and fibula. Soft tissues: Soft tissue swelling. IMPRESSION: Comminuted fracture of the distal tibia and fibula.
--- NOTE | 2024-05-02 06:50 | XR ---
EXAMINATION TYPE: XR chest 1V DATE OF EXAM: 05/02/2024 COMPARISON: 02/16/2024 HISTORY: Presurgical TECHNIQUE: Single frontal view of the chest is obtained. FINDINGS: There is moderate to marked pulmonary vascular congestion. There are fluffy airspace infiltrates like ly secondary to pulmonary edema. There is no large pleural effusion. There is no pneumothorax. There is a single lead cardiac pacemaker The osseous structures are intact IMPRESSION: Findings most consistent with moderate CHF.
[2024-05-02] MEDS ORDERED: NALOXONE 0.4 MG/ML 1 ML VIAL IV PRN (07:12)
[2024-05-02] MEDS ORDERED: HYDROmorphone 0.5 MG/0.5 ML SYRINGE IVP PRN (07:18)
--- NOTE | 2024-05-02 09:21 | P.CONS ---
History of Present Illness - History of Present Illness This is a pleasant 79 years old male with past medical history of multiple me dical problems as below including end-stage renal disease, diastolic CHF and moderate to severe mitral and tricuspid regurgitation and A-fib on Coumadin Patient presents because he was eating and drinking in the kitchen and suddenly he passed out and fell to the ground with no warning. Patient denies chest pain No coughing. Patient states he is little short of breath but currently he is not tachypneic and he is talking freely with good oxygen saturation No vomiting or diarrhea or abdominal pain No chills, he does not make urine because he is dialysis patient He denies headache dizziness weakness or numbness He denies smoking or illicit drugs, he drinks occasionally very rarely as he explains He confirms he takes aspirin and warfarin at home He denies taking any antibiotic He takes trazodone at home and he wants to keep it Patient is hemodynamically stable. Afebrile Labs reviewed CBC is unremarkable except for anemia, hemoglobin 7.6 with a baseline 7.3-10.5 INR 5.3, repeat INR from today pending Creatinine 3.1 and he is dialysis patient Chest x-ray showing moderate CHF Ejection fraction from 09/2022: 50% Left lower extremity CT showing commuted fracture of the left distal tibia and fibula CT of the brain is negative for acute process EKG showing ventricular paced rhythm at 60 Review of Systems Review of systems CONSTITUTIONAL: No fever, no malaise, no fatigue. HEENT: No recent visual problems or hearing problems. Denied any sore throat. CARDIOVASCULAR: No orthopnea, PND, no palpitations, no syncope. PULMONARY: No shortness of breath, no cough, no hemoptysis. GASTROINTESTINAL: No diarrhea, no nausea, no vomiting, no abdominal pain. No rmoactive bowel sounds. NEUROLOGICAL: No headaches, no weakness, no numbness. HEMATOLOGICAL: Denies any bleeding or petechiae. GENITOURINARY: Denies any burning micturition, frequency, or urgency. MUSCULOSKELETAL/RHEUMATOLOGICAL: Denies any joint pain, swelling, or any muscle pain. ENDOCRINE: Denies any polyuria or polydipsia. Past Medical History Past Medical History: Atrial Fibrillation, Dialysis, Eye Disorder Additional Past Medical History / Comment(s): heart murmur, Kidney Failure- Dialysis MOWEFR-has little urine output,approx twice per day,pt thinks may be on fluid restrictions checking with dialysis on 01-16-23 to confirm how much fluids per day he can have. Cataracts. History of Any Multi-Drug Resistant Organisms: None Reported Past Surgical History: Joint Replacement, Pacemaker Additional Past Surgical History / Comment(s): Cardiac stents, right hip replacement,left upper arm av fistula Past Anesthesia/Blood Transfusion Reactions: No Reported Reaction Additional Past Anesthesia/Blood Transfusion Reaction / Comm: no problems with prior blood transfusion Type of Cardiac Device: Unknown Device Placement Date:: 2010 Past Psychological History: No Psychological Hx Reported Smoking Status: Never smoker Past Alcohol Use History: None Reported Past Drug Use History: None Reported - Past Family History Father Family Medical History: Hypertension Brother(s) Family Medical History: Cancer Additional Family Medical History / Comment(s): 2 brothers of cancer. Medications and Allergies Home Medications Medication Instructions Recorded Confirmed Type Aspirin EC [Ecotrin Low Dose] 81 mg PO DAILY 08/04/21 02/15/24 History Dialyvite 1 tab PO HS 08/04/21 02/15/24 History Sevelamer Carbonate 1,600 mg PO TID-W/MEALS 08/28/22 02/15/24 History levOCARNitine [Levocarnitine] 330 mg PO HS 01/15/23 02/15/24 History Atorvastatin [Lipitor] 20 mg PO DAILY 05/16/23 02/15/24 History Furosemide [Lasix] 40 mg PO BID 05/16/23 02/15/24 History Sildenafil [Revatio] 20 mg PO BID 05/16/23 02/15/24 History Warfarin [Coumadin] 2 mg PO [id number]@209901/10/24 02/15/24 History Omeprazole 20 mg PO HS 02/15/24 02/15/24 History Warfarin [Coumadin] 3 mg PO [id number]@209902/15/24 02/15/24 History carvediloL [Coreg] 3.125 mg PO BID 02/15/24 02/15/24 History traZODone HCL [Desyrel] 50 mg PO HS 02/15/24 02/15/24 History Cefuroxime [Ceftin] 250 mg PO DAILY 2 Days #2 tab 02/20/24 Rx Docusate [Colace] 100 mg PO DAILY PRN cap 02/20/24 Rx Allergies Allergy/AdvReac Type Severity Reaction Status Date / Time No Known Allergies Allergy Verified 02/15/24 14:20 Physical Exam Vitals: Vital Signs Temp Pulse Resp BP Pulse Ox 05/02/24 08:08 60 16 139/70 99 05/02/24 06:00 62 18 162/76 97 05/02/24 05:00 65 18 140/64 97 05/02/24 04:24 61 18 138/77 96 05/02/24 03:35 60 18 136/74 100 05/02/24 02:32 99.0 F 63 18 130/54 98 Intake and Output 05/01/24 05/02/24 05/02/24 22:59 06:59 14:59 Other: Weight 84.822 kg GENERAL: The patient is alert and oriented x3, not in any acute distress. Well developed, well nourished. HEENT: Pupils are round and equally reacting to light. EOMI. No scleral icterus. No conjunctival pallor. Normocephalic, atraumatic. No pharyngeal erythema. No thyromegaly. CARDIOVASCULAR: S1 and S2 present. No murmurs, rubs, or gallops. PULMONARY: Chest is clear to auscultation, no wheezing , no crackles. ABDOMEN: Soft, nontender, nondistended, normoactive bowel sounds. No palpable organomegaly. MUSCULOSKELETAL: No joint swelling or deformity. -EXTREMITIES: No cyanosis, clubbing, or pedal edema. Left leg and heart brace cast NEUROLOGICAL: Gross neurological examination did not reveal any focal deficits. SKIN: No rashes. no petechiae. Results CBC & Chem 7: 05/02/24 03:18 05/02/24 03:18 Labs: Abnormal Lab Results - Last 24 Hours (Table) 05/02/24 05/02/24 05/02/24 Range/Units 03:18 03:18 03:18 RBC 2.61 L (4.30-5.90) m/uL Hgb 7.6 L (13.0-17.5) gm/dL Hct 24.4 L (39.0-53.0) % RDW 18.5 H (11.5-15.5) % Neutrophils # 8.4 H (1.3-7.7) k/uL PT 52.3 H (10.0-12.5) sec INR 5.3 H* (<1.2) APTT 36.4 H (22.0-30.0) sec Sodium 136 L (137-145) mmol/L Chloride 97 L (98-107) mmol/L Carbon Dioxide 33 H (22-30) mmol/L BUN 42 H (9-20) mg/dL Creatinine 3.10 H (0.66-1.25) mg/dL Glucose 102 H (74-99) mg/dL Assessment and Plan Assessment: Syncope, rule out cardiac causes Fall with comminuted fractures of the left distal tibia and fibula End-stage renal disease on hemodialysis Coagulopathy secondary to Coumadin A-fib with heart rate controlled currently on Coumadin Acute on chronic CHF with diastolic ejection fraction 50% Moderate to severe mitral regurgitation and tricuspid regurgitation Chronic anemia Plan: Continue holding Coumadin and monitor INR Agree with cardiac evaluation preoperatively Once cleared by landscape photographer. There is no absolute contraindication from medical perspective for the patient to proceed with surgery although he still at some risk from the surgery. Orthopedic primary team on the case Continue symptomatic treatment Continue with dialysis per nephrology team DVT prophylaxis. The patient already has high INR GI prophylaxis: Pepcid Prognosis is guarded
[2024-05-02 09:24] LABS: Anisocytosis Slight; Basophils % (A) 0 %; Eosinophils # (A) 0.1 k/uL (0-0.7); Eosinophils % (A) 1 %; HCT 24.1 % (39.0-53.0); HGB 7.4 gm/dL (13.0-17.5); Hypochromasia Marked; Lymphocytes # (A) 0.9 k/uL (1.0-4.8); Lymphocytes % (A) 10 %; MCH 29.7 pg (25.0-35.0); MCHC 30.6 g/dL (31.0-37.0); Macrocytosis Slight; Mean Platelet Volume 6.5; Monocytes # (A) 0.9 k/uL (0-1.0); Monocytes % (A) 9 %; Neutrophils # (A) 7.3 k/uL (1.3-7.7); Neutrophils % (A) 78 %; Platelet Count 286 k/uL (150-450); RBC 2.48 m/uL (4.30-5.90); RDW 18.6 % (11.5-15.5); WBC 9.4 k/uL (3.8-10.6)
[2024-05-02 09:35] LABS: Prothrombin Time 53.4 sec (10.0-12.5)
[2024-05-02 09:37] LABS: INR 5.5 (<1.2)
--- NOTE | 2024-05-02 10:36 | P.HPOR ---
History of Present Illness H&P Date: 05/02/24 Chief Complaint: Left tib-fib fractures This is an 79-year-old male who fell in his home last evening when he got up to get a snack in the kitchen. He states that he does not know what happened, he did not feel dizzy or lose his footing that he is aware of. He states that he does simply fell and all of a sudden realized he was on the ground. He denies hitting his head or loss of consciousness. He is complaining of no head or neck pain. He is complaining of no pain to the upper extremities. He states that he had immediate pain in the left leg. He was eventually able to awaken his and was brought to the emergency department via EMS. On exam and x-ray he was found to have a distal third tib-fib fracture of the left leg and is admitted to our service for surgical intervention. The patient does have an extensive medical history. He is on dialysis. His most recent dialysis treatment was yesterday. He is due on Saturday. The patient is on Coumadin for atrial fibrillation. His INR is currently 5.3. Past Medical History Past Medical History: Atrial Fibrillation, Dialysis, Eye Disorder Additional Past Medical History / Comment(s): heart murmur, Kidney Failure- Dialysis MOWEFR-has little urine output,approx twice per day,pt thinks may be on fluid restrictions checking with dialysis on 01-16-23 to confirm how much fluids per day he can have. Cataracts. History of Any Multi-Drug Resistant Organisms: None Reported Past Surgical History: Joint Replacement, Pacemaker Additional Past Surgical History / Comment(s): Cardiac stents, right hip replacement,left upper arm av fistula Past Anesthesia/Blood Transfusion Reactions: No Reported Reaction Additional Past Anesthesia/Blood Transfusion Reaction / Comment(s): no problems with prior blood transfusion Type of Cardiac Device: Unknown Device Placement Date:: 2010 Past Psychological History: No Psychological Hx Reported Smoking Status: Never smoker Past Alcohol Use History: None Reported Past Drug Use History: None Reported - Past Family History Father Family Medical History: Hypertension Brother(s) Family Medical History: Cancer Additional Family Medical History / Comment(s): 2 brothers of cancer. Medications and Allergies Home Medications Medication Instructions Recorded Confirmed Type Aspirin EC [Ecotrin Low Dose] 81 mg PO DAILY 08/04/21 05/02/24 History Dialyvite 1 tab PO HS 08/04/21 05/02/24 History Sevelamer Carbonate 1,600 mg PO TID-W/MEALS 08/28/22 05/02/24 History levOCARNitine [Levocarnitine] 330 mg PO HS 01/15/23 05/02/24 History Atorvastatin [Lipitor] 20 mg PO DAILY 05/16/23 05/02/24 History Furosemide [Lasix] 40 mg PO BID 05/16/23 05/02/24 History Sildenafil [Revatio] 20 mg PO BID 05/16/23 05/02/24 History Warfarin [Coumadin] 2 mg PO TUWETH@209901/10/24 05/02/24 History Omeprazole 20 mg PO HS 02/15/24 05/02/24 History Warfarin [Coumadin] 3 mg PO SUMOFRSA@2100 02/15/24 05/02/24 History carvediloL [Coreg] 3.125 mg PO HS 02/15/24 05/02/24 History traZODone HCL [Desyrel] 50 mg PO HS 02/15/24 05/02/24 History Sevelamer [Renvela] 1,600 mg PO DAILY PRN 05/02/24 05/02/24 History buPROPion XL [Wellbutrin XL] 150 mg PO HS 05/02/24 05/02/24 History methylPREDNISolone [Medrol Dose See Taper PO DIRECTED 05/02/24 05/02/24 History Pack] Allergies Allergy/AdvReac Type Severity Reaction Status Date / Time No Known Allergies Allergy Verified 05/02/24 10:28 Physical Examination Osteopathic Statement: *. No significant issues noted on an osteopathic st ructural exam other than those noted in the History and Physical/Consult. This is a pleasant 79-year-old male in no acute distress. He is alert and oriented x 3. Exam of the head neck revealed no deformities. He is able to rotate cervical spine without difficulty or pain. There is no pain with p alpation about the cervical spinous processes or paraspinal musculature. Exam of the upper extremities is unremarkable. No swelling or deformity noted. He does have a shunt for dialysis in the left upper arm. Exam of the lower extremities reveals a short leg splint in place to the left leg. He has full toe motion without difficulty or pain. Neurovascular status to the lower extremities is intact. Results X-rays of the left lower extremity reveal a comminuted midshaft to distal third tibia fracture with slight displacement. There is also a distal third fibular f racture with mild displacement. - Labs Labs: Abnormal Lab Results - Last 24 Hours (Table) 05/02/24 05/02/24 05/02/24 Range/Units 03:18 03:18 03:18 RBC 2.61 L (4.30-5.90) m/uL Hgb 7.6 L (13.0-17.5) gm/dL Hct 24.4 L (39.0-53.0) % MCHC (31.0-37.0) g/dL RDW 18.5 H (11.5-15.5) % Neutrophils # 8.4 H (1.3-7.7) k/uL Lymphocytes # (1.0-4.8) k/uL PT 52.3 H (10.0-12.5) sec INR 5.3 H* (<1.2) APTT 36.4 H (22.0-30.0) sec Sodium 136 L (137-145) mmol/L Chloride 97 L (98-107) mmol/L Carbon Dioxide 33 H (22-30) mmol/L BUN 42 H (9-20) mg/dL Creatinine 3.10 H (0.66-1.25) mg/dL Glucose 102 H (74-99) mg/dL 05/02/24 05/02/24 Range/Units 08:48 08:48 RBC 2.48 L (4.30-5.90) m/uL Hgb 7.4 L (13.0-17.5) gm/dL Hct 24.1 L (39.0-53.0) % MCHC 30.6 L (31.0-37.0) g/dL RDW 18.6 H (11.5-15.5) % Neutrophils # (1.3-7.7) k/uL Lymphocytes # 0.9 L (1.0-4.8) k/uL PT 53.4 H (10.0-12.5) sec INR 5.5 H* (<1.2) APTT (22.0-30.0) sec Sodium (137-145) mmol/L Chloride (98-107) mmol/L Carbon Dioxide (22-30) mmol/L BUN (9-20) mg/dL Creatinine (0.66-1.25) mg/dL Glucose (74-99) mg/dL H & H 05/02/24 05/02/24 Range/Units 03:18 08:48 Hgb 7.6 L 7.4 L (13.0-17.5) gm/dL Hct 24.4 L 24.1 L (39.0-53.0) % Coagulation 05/02/24 05/02/24 Range/Units 03:18 08:48 INR 5.3 H* 5.5 H* (<1.2) Result Diagrams: 05/05/24 04:52 05/05/24 04:52 Assessment and Plan (1) Fracture of tibia with fibula, left, closed Current Visit: Yes Status: Acute Code(s): S82.202A - UNSP FRACTURE OF SHAFT OF LEFT TIBIA, INIT FOR CLOS FX; S82.402A - UNSP FRACTURE OF SHAFT OF LEFT FIBULA, INIT FOR CLOS FX SNOMED Code(s): 206208042 (2) A-fib Current Visit: No Status: Acute Code(s): I48.91 - UNSPECIFIED ATRIAL FIBRILLATION SNOMED Code(s): 03641667 (3) Fall Current Visit: No Status: Acute Code(s): W19.XXXA - UNSPECIFIED FALL, INITIAL ENCOUNTER SNOMED Code(s): 1894681 Plan: The clinical and x-ray findings are discussed with the patient. It is recommended he undergo closed reduction with insertion of intramedullary nail of the left tibia. The patient does have elevated INR which will need to be addressed prior to surgery. We will await medical clearance. We are tentatively planning on surgery tomorrow. *Agree with above assessment and plan. Imaging and labs are reviewed. CT shows that the fracture is extraarticular. Patient has many comorbidities and we will optimize him for the OR for an IM nail.
[2024-05-02] MEDS: MORPHINE SULFATE 4 MG/ML SYRINGE IV PRN (11:32)
--- NOTE | 2024-05-02 11:59 | P.CRDCN ---
History of Present Illness Consult date: 05/02/24 History of present illness: This is an 79-year-old gentleman with a past medical history significant for CAD with prior stenting with unknown details as well as valvular heart disease known moderate to severe mitral and tricuspid regurgitation as well as permanent atria l fibrillation as well as permanent pacemaker and also end-stage renal disease on dialysis. We consulted to see the patient for preop cardiac assessment before noncardiac surgery. The patient apparently fell at home when he woke up in the middle of the night to walk to his kitchen and subsequently he lost his balance and he fell and fractured his left ankle. No change in mental status including any presyncope or syncope and no symptoms of chest pain or chest discomfort or shortness of breath or dizziness or lightheadedness or any feeling of heart racing or fluttering. He was brought to the hospital where he was seen by orthopedic surgery service and the plan to undergo left ankle surgery tomorrow. The EKG showed underlying atrial fibrillation with ventricular paced rhythm. The hemoglobin is low which is chronic and he is known to have end- stage renal disease on dialysis. He was seen by the nephrology service as well. An echocardiogram still pending. Examination is remarkable for severe pansystolic murmur at the apical area with regular rhythm and clear breathing sounds bilaterally and no edema was noted in the lower extremities Assessment Status post fall and left ankle fracture Permanent atrial fibrillation with controlled heart rate Permanent pacemaker CAD Valvular heart disease as described above Multiple comorbid conditions including end-stage renal disease on dialysis Plan Hold anticoagulation given the elevated INR Follow-up on the echocardiogram Overall the patient is asymptomatic and euvolemic Further recommendation to follow Past Medical History Past Medical History: Atrial Fibrillation, Dialysis, Eye Disorder Additional Past Medical History / Comment(s): heart murmur, Kidney Failure- D ialysis MOWEFR-has little urine output Cataracts. History of Any Multi-Drug Resistant Organisms: None Reported Past Surgical History: Joint Replacement, Pacemaker Additional Past Surgical History / Comment(s): Cardiac stents, right hip replacement,left upper arm av fistula Past Anesthesia/Blood Transfusion Reactions: No Reported Reaction Additional Past Anesthesia/Blood Transfusion Reaction / Comment(s): no problems with prior blood transfusion Type of Cardiac Device: Unknown Device Placement Date:: 2010 Past Psychological History: No Psychological Hx Reported Smoking Status: Never smoker Past Alcohol Use History: None Reported Past Drug Use History: None Reported - Past Family History Father Family Medical History: Hypertension Brother(s) Family Medical History: Cancer Additional Family Medical History / Comment(s): 2 brothers of cancer. Medications and Allergies Home Medications Medication Instructions Recorded Confirmed Type Aspirin EC [Ecotrin Low Dose] 81 mg PO DAILY 08/04/21 05/02/24 History Dialyvite 1 tab PO HS 08/04/21 05/02/24 History Sevelamer Carbonate 1,600 mg PO TID-W/MEALS 08/28/22 05/02/24 History levOCARNitine [Levocarnitine] 330 mg PO HS 01/15/23 05/02/24 History Atorvastatin [Lipitor] 20 mg PO DAILY 05/16/23 05/02/24 History Furosemide [Lasix] 40 mg PO BID 05/16/23 05/02/24 History Sildenafil [Revatio] 20 mg PO BID 05/16/23 05/02/24 History Warfarin [Coumadin] 2 mg PO TUWETH@2100 01/10/24 05/02/24 History Omeprazole 20 mg PO HS 02/15/24 05/02/24 History Warfarin [Coumadin] 3 mg PO SUMOFRSA@2100 02/15/24 05/02/24 History carvediloL [Coreg] 3.125 mg PO HS 02/15/24 05/02/24 History traZODone HCL [Desyrel] 50 mg PO HS 02/15/24 05/02/24 History Sevelamer [Renvela] 1,600 mg PO DAILY PRN 05/02/24 05/02/24 History buPROPion XL [Wellbutrin XL] 150 mg PO HS 05/02/24 05/02/24 History methylPREDNISolone [Medrol Dose See Taper PO DIRECTED 05/02/24 05/02/24 History Pack] Allergies Allergy/AdvReac Type Severity Reaction Status Date / Time No Known Allergies Allergy Verified 05/02/24 10:28 Physical Exam Vitals: Vital Signs Temp Pulse Pulse Resp BP BP Pulse Ox 05/02/24 11:13 98.0 F 63 18 167/76 100 05/02/24 10:37 63 16 142/73 97 05/02/24 10:00 64 16 158/78 99 05/02/24 08:08 60 16 139/70 99 07/27/24 06:00 62 18 162/76 97 05/02/24 05:00 65 18 140/64 97 05/02/24 04:24 61 18 138/77 96 05/02/24 03:35 60 18 136/74 100 05/02/24 02:32 99.0 F 63 18 130/54 98 Intake and Output 05/01/24 05/02/24 05/02/24 22:59 06:59 14:59 Other: Weight 84.822 kg 84.822 kg Results 05/02/24 08:48 05/02/24 03:18 Cardiac Enzymes 05/02/24 Range/Units 03:18 AST 34 (17-59) U/L Coagulation 05/02/24 05/02/24 Range/Units 03:18 08:48 PT 52.3 H 53.4 H (10.0-12.5) sec APTT 36.4 H (22.0-30.0) sec CBC 05/02/24 05/02/24 Range/Units 03:18 08:48 WBC 10.5 9.4 (3.8-10.6) k/uL RBC 2.61 L 2.48 L (4.30-5.90) m/uL Hgb 7.6 L 7.4 L (13.0-17.5) gm/dL Hct 24.4 L 24.1 L (39.0-53.0) % Plt Count 296 286 (150-450) k/uL Comprehensive Metabolic Panel 05/02/24 Range/Units 03:18 Sodium 136 L (137-145) mmol/L Potassium 5.0 (3.5-5.1) mmol/L Chloride 97 L (98-107) mmol/L Carbon Dioxide 33 H (22-30) mmol/L BUN 42 H (9-20) mg/dL Creatinine 3.10 H (0.66-1.25) mg/dL Glucose 102 H (74-99) mg/dL Calcium 8.6 (8.4-10.2) mg/dL AST 34 (17-59) U/L ALT 16 (4-49) U/L Alkaline Phosphatase 80 (38-126) U/L Total Protein 6.4 (6.3-8.2) g/dL Albumin 3.9 (3.5-5.0) g/dL Current Medications Generic Name Dose Route Start Last Admin Trade Name Freq PRN Reason Stop Dose Admin Acetaminophen 650 mg 05/02/24 07:18 Acetaminophen Tab 325 Mg Tab PO Q6HR PRN Mild Pain or Fever > 100.5 Famotidine 10 mg 05/02/24 21:00 Famotidine 20 Mg/2 Ml Vial IV Q12HR GUILLERMO Hydromorphone HCl 0.5 mg 05/02/24 07:18 Hydromorphone 0.5 Mg/0.5 Ml Syringe IVP Q3HR PRN Moderate Pain (Scale 4 to 6) Morphine Sulfate 4 mg 05/02/24 07:18 05/02/24 11:32 Morphine Sulfate 4 Mg/Ml Syringe IV 4 mg Q4HR PRN Administration Severe Pain (Scale 7 to 10) Naloxone HCl 0.2 mg 05/02/24 07:12 Naloxone 0.4 Mg/Ml 1 Ml Vial IV Q2M PRN Opioid Reversal Ondansetron HCl 4 mg 05/02/24 07:18 Ondansetron 4 Mg/2 Ml Vial IVP Q8HR PRN Nausea And Vomiting Intake and Output 05/01/24 05/02/24 05/02/24 22:59 06:59 14:59 Other: Weight 84.822 kg 84.822 kg Patient Weight 05/03/24 06:59 Weight 84.822 kg 05/02/24 08:48 05/02/24 03:18
[2024-05-02] MEDS: PHYTONADIONE ORAL 5 MG/5 ML ORAL.SYRG PO STA (13:16)
[2024-05-02] MEDS: ACETAMINOPHEN TAB 325 MG TAB PO PRN (13:28)
--- NOTE | 2024-05-02 14:02 | P.NPCON ---
History of Present Illness - Reason for Consult end stage renal disease - History of Present Illness Patient is an 79-year-old male with end-stage renal disease maintained on hemodialysis on a Saturday schedule. Patient is admitted to the hospital with history of fall yesterday. Patient was in the kitchen for a midnight snack and states that he just fell. no complaints of lightheadedness or dizziness. He believes he fell when he was shifting his footing. Subsequently complained of significant pain in the left leg. x-ray showed distal third tib/fib fracture. Patient has been seen by orthopedic surgery and is scheduled for surgery in a.m. INR was elevated at 5.3. Patient is maintained on Coumadin for A. fib. No significant hypotension noted. Patient states that he had about 2 L of fluid removed yesterday at dialysis. no history of fever chills nausea vomiting or abdominal pain chest pain or shortness of breath. Review of Systems as per HPI Past Medical History Past Medical History: Atrial Fibrillation, Dialysis, Eye Disorder Additional Past Medical History / Comment(s): heart murmur, Kidney Failure- Dialysis MOWEFR-has little urine output Cataracts. History of Any Multi-Drug Resistant Organisms: None Reported Past Surgical History: Joint Replacement, Pacemaker Additional Past Surgical History / Comment(s): Cardiac stents, right hip replacement,left upper arm av fistula Past Anesthesia/Blood Transfusion Reactions: No Reported Reaction Additional Past Anesthesia/Blood Transfusion Reaction / Comment(s): no problems with prior blood transfusion Type of Cardiac Device: Unknown Device Placement Date:: 2010 Past Psychological History: No Psychological Hx Reported Smoking Status: Never smoker Past Alcohol Use History: None Reported Past Drug Use History: None Reported - Past Family History Father Family Medical History: Hypertension Brother(s) Family Medical History: Cancer Additional Family Medical History / Comment(s): 2 brothers of cancer. Medications and Allergies Home Medications Medication Instructions Recorded Confirmed Type Aspirin EC [Ecotrin Low Dose] 81 mg PO DAILY 08/04/21 05/02/24 History Dialyvite 1 tab PO HS 08/04/21 05/02/24 History Sevelamer Carbonate 1,600 mg PO TID-W/MEALS 08/28/22 05/02/24 History levOCARNitine [Levocarnitine] 330 mg PO HS 01/15/23 05/02/24 History Atorvastatin [Lipitor] 20 mg PO DAILY 05/16/23 05/02/24 History Furosemide [Lasix] 40 mg PO BID 05/16/23 05/02/24 History Sildenafil [Revatio] 20 mg PO BID 05/16/23 05/02/24 History Warfarin [Coumadin] 2 mg PO TUWETH@2100 01/10/24 05/02/24 History Omeprazole 20 mg PO HS 02/15/24 05/02/24 History Warfarin [Coumadin] 3 mg PO SUMOFRSA@2100 02/15/24 05/02/24 History carvediloL [Coreg] 3.125 mg PO HS 02/15/24 05/02/24 History traZODone HCL [Desyrel] 50 mg PO HS 02/15/24 05/02/24 History Sevelamer [Renvela] 1,600 mg PO DAILY PRN 05/02/24 05/02/24 History buPROPion XL [Wellbutrin XL] 150 mg PO HS 05/02/24 05/02/24 History methylPREDNISolone [Medrol Dose See Taper PO DIRECTED 05/02/24 05/02/24 Hist ory Pack] Allergies Allergy/AdvReac Type Severity Reaction Status Date / Time No Known Allergies Allergy Verified 05/02/24 10:28 Physical Exam Vitals: Vital Signs Temp Pulse Pulse Resp BP BP Pulse Ox 05/02/24 11:13 98.0 F 63 18 167/76 100 05/02/24 10:37 63 16 142/73 97 05/02/24 10:00 64 16 158/78 99 05/02/24 08:08 60 16 139/70 99 05/02/24 06:00 62 18 162/76 97 05/02/24 05:00 65 18 140/64 97 05/02/24 04:24 61 18 138/77 96 05/02/24 03:35 60 18 136/74 100 05/02/24 02:32 99.0 F 63 18 130/54 98 Intake and Output 05/01/24 05/02/24 05/02/24 22:59 06:59 14:59 Other: Weight 84.822 kg 84.822 kg patient is awake, comfortable, no acute distress. 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 End-stage renal disease on hemodialysis on Saturday schedule via left arm AV fistula 2. Status post fall with left rib/fib fracture scheduled for surgery in a.m. 3. Coagulopathy from Coumadin with INR of 5.3 status post vitamin K 4. CK D mineral bone disorder 5. Chronic A. fib Plan: resume Ren[facility] Hemodialysis on 05/04/2024 Thank you for the consultation. We will continue to follow the patient with you during his hospitalization.
[2024-05-02] MEDS: FAMOTIDINE 20 MG/2 ML VIAL IV SCH (22:04)
[2024-05-03] MEDS: ONDANSETRON 4 MG/2 ML VIAL IVP PRN (03:59)
[2024-05-03 08:40] LABS: INR 3.2 (<1.2); Prothrombin Time 31.2 sec (10.0-12.5)
--- NOTE | 2024-05-03 09:54 | P.PN ---
Subjective Progress Note Date: 05/03/24 Principal diagnosis: Left tib-fib fractures. Status post fall. This is an 79-year-old male who we are treating regarding his left tib-fib fractures. He was scheduled for surgery today. However, his INR is still elevated at 3.2. He is complaining of pain to the left leg. His is present at bedside. Objective - Vital Signs Vital signs: Vital Signs Temp 98.0 F 05/03/24 07:32 Pulse 70 05/03/24 07:32 Resp 16 05/03/24 07:32 BP 142/71 05/03/24 07:32 Pulse Ox 100 05/03/24 07:32 FiO2 Intake & Output 05/02/24 05/03/24 05/03/24 18:59 06:59 18:59 Intake Total 400 Output Total 0 Balance 400 0 Weight 84.822 kg Intake: Oral 400 Output: Urine 0 Other: # Voids 0 - Exam This is a pleasant 79-year-old male in no acute distress. He is having significant pain. Exam of the left lower extremity reveals the splint is intact. The splint is taken down dorsally. There is mild to moderate soft tissue swelling and ecchymosis to the leg. The fracture fragment is palpable under the skin about the mid shaft. No skin breakdown noted. He has full toe motion without difficulty or pain. The splint is redressed with extra padding. Neurovascular status to the lower extremity is intact. - Labs CBC & Chem 7: 05/02/24 08:48 05/02/24 03:18 Labs: Abnormal Lab Results - Last 24 Hours (Table) 05/03/24 Range/Units 08:04 PT 31.2 H (10.0-12.5) sec INR 3.2 H (<1.2) Assessment and Plan (1) Fracture of tibia with fibula, left, closed Current Visit: Yes Status: Acute Code(s): S82.202A - UNSP FRACTURE OF SHAFT OF LEFT TIBIA, INIT FOR CLOS FX; S82.402A - UNSP FRACTURE OF SHAFT OF LEFT FIBULA, INIT FOR CLOS FX SNOMED Code(s): 887350391 (2) A-fib Current Visit: No Status: Acute Code(s): I48.91 - UNSPECIFIED ATRIAL FIBRILLATION SNOMED Code(s): 16960223 (3) Fall Current Visit: No Status: Acute Code(s): W19.XXXA - UNSPECIFIED FALL, INITIAL ENCOUNTER SNOMED Code(s): 5971986 Plan: The clinical and x-ray findings are discussed with the patient. It is recommended he undergo closed reduction with insertion of intramedullary nail of the left tibia. The patient does have elevated INR which will need to be addressed prior to surgery. I have asked that he have his dialysis first thing in the morning so that we may take him to surgery at noon tomorrow.
[2024-05-03 10:18] LABS: INR 3.19 sec (0.93-1.11); Prothrombin Time 31.9 sec (9.9-11.9)
[2024-05-03 10:23] LABS: HGB 6.6 g/dL (13.0-17.0); MCH 29.1 pg (27.0-32.0); MCV 96.9 FL (80.0-97.0); NRBC Per 100 WBC 0 X 10*3/uL (0.00-0.01); Platelet Count 213 X 10*3/uL (140-440); RBC 2.27 X 10*6/uL (4.40-5.60); RDW 18.9 % (11.5-14.5)
[2024-05-03 10:29] LABS: BUN/Creat Ratio 9.77 Ratio (12.00-20.00); Blood Urea Nitrogen 51.8 mg/dL (9.0-27.0); Calcium 8.8 mg/dL (8.7-10.3); Carbon Dioxide 27.3 mmol/L (21.6-31.8); Chloride 95 mmol/L (96-109); Glucose 102 mg/dL (70-110); Potassium 5.5 mmol/L (3.5-5.5); Sodium 138 mmol/L (135-145)
[2024-05-03 10:31] LABS: Basophils # (A) 0.04 X 10*3/uL (0.00-0.10); Basophils % (A) 0.4 %; Elliptocytes 2+; Eosinophils # (A) 0.36 X 10*3/uL (0.04-0.35); Eosinophils % (A) 3.5 %; Lymphocytes % (A) 8.7 %; Monocytes # (A) 1.27 X 10*3/uL (0.20-1.00); Monocytes % (A) 12.3 %; Neutrophils % (A) 74.8 %
[2024-05-03] MEDS ORDERED: PHYTONADIONE ORAL 5 MG/5 ML ORAL.SYRG PO STA (10:35)
--- NOTE | 2024-05-03 11:02 | P.PN ---
Subjective Progress Note Date: 05/03/24 This is an 79-year-old gentleman with a past medical history significant for CAD with prior stenting with unknown details as well as valvular heart disease known moderate to severe mitral and tricuspid regurgitation as well as permanent atrial fibrillation as well as permanent pacemaker and also end-stage renal disease on dialysis. We consulted to see the patient for preop cardiac assessment before noncardiac surgery. The patient apparently fell at home when he woke up in the middle of the night to walk to his kitchen and subsequently he lost his balance and he fell and fractured his left ankle. No change in mental status including any presyncope or syncope and no symptoms of chest pain or ches t discomfort or shortness of breath or dizziness or lightheadedness or any feeling of heart racing or fluttering. He was brought to the hospital where he was seen by orthopedic surgery service and the plan to undergo left ankle surgery tomorrow. The EKG showed underlying atrial fibrillation with v entricular paced rhythm. The hemoglobin is low which is chronic and he is known to have end-stage renal disease on dialysis. He was seen by the nephrology service as well. An echocardiogram still pending. Examination is remarkable for severe pansystolic murmur at the apical area with regular rhythm and clear breathing sounds bilaterally and no edema was noted in the lower extremities May 03, 2024 The patient was seen and evaluated this morning with he is asymptomatic and hemodynamically stable. The hemoglobin drop below 7 and he is in process of having 1 unit of packed RBC. Beside that his INR continues to be elevated at 3.5 and he is in process of receiving vitamin K. His kidney function is worse which is likely secondary to the anemia. Coumadin continues to be on hold. The examination is remarkable for regular rhythm with a systolic murmur at the right upper sternal and left upper sternal border and clear breathing sounds bilaterally and no edema was noted Assessment Status post fall and left ankle fracture Permanent atrial fibrillation with controlled heart rate Permanent pacemaker CAD seems to be stable Valvular heart disease as described above Severe anemia Renal failure Multiple comorbid conditions including end-stage renal disease on dialysis Plan Continue holding the Coumadin Continue monitor the INR Vitamin K was ordered The patient is in process of having 1 unit of packed RBC Monitor the hemoglobin and kidney function Follow-up on the echocardiogram Objective - Vital Signs Vital signs: Vital Signs Temp 98.0 F 05/03/24 07:32 Pulse 70 05/03/24 07:32 Resp 16 05/03/24 07:32 BP 142/71 05/03/24 07:32 Pulse Ox 100 05/03/24 07:32 FiO2 Intake & Output 05/02/24 05/03/24 05/03/24 18:59 06:59 18:59 Intake Total 400 Output Total 0 Balance 400 0 Weight 84.822 kg Intake: Oral 400 Output: Urine 0 Other: # Voids 0 - Labs CBC & Chem 7: 05/03/24 03:52 05/03/24 03:52 Labs: Abnormal Lab Results - Last 24 Hours (Table) 05/03/24 05/03/24 05/03/24 Range/Units 03:52 03:52 03:52 WBC 10.30 H (4.50-10.00) X 10*3/uL RBC 2.27 L (4.40-5.60) X 10*6/uL Hgb 6.6 A* (13.0-17.0) g/dL Hct 22.0 L (39.6-50.0) % MCHC 30.0 L (32.0-37.0) g/dL RDW 18.9 H (11.5-14.5) % MPV 9.0 L (9.5-12.2) FL Monocytes # 1.27 H (0.20-1.00) X 10*3/uL Eosinophils # 0.36 H (0.04-0.35) X 10*3/uL Elliptocytes 2+ A PT 31.9 H (9.9-11.9) sec INR 3.19 H (0.93-1.11) sec Chloride 95 L (96-109) mmol/L Anion Gap 15.70 H (4.00-12.00) mmol/L BUN 51.8 H (9.0-27.0) mg/dL Creatinine 5.3 H (0.6-1.5) mg/dL Est GFR (CKD-EPI) 10 L (>=60) BUN/Creatinine Ratio 9.77 L (12.00-20.00) Ratio 05/03/24 Range/Units 08:04 WBC (4.50-10.00) X 10*3/uL RBC (4.40-5.60) X 10*6/uL Hgb (13.0-17.0) g/dL Hct (39.6-50.0) % MCHC (32.0-37.0) g/dL RDW (11.5-14.5) % MPV (9.5-12.2) FL Monocytes # (0.20-1.00) X 10*3/uL Eosinophils # (0.04-0.35) X 10*3/uL Elliptocytes PT 31.2 H (9.9-11.9) sec INR 3.2 H (0.93-1.11) sec Chloride (96-109) mmol/L Anion Gap (4.00-12.00) mmol/L BUN (9.0-27.0) mg/dL Creatinine (0.6-1.5) mg/dL Est GFR (CKD-EPI) (>=60) BUN/Creatinine Ratio (12.00-20.00) Ratio
[2024-05-03] MEDS: PHYTONADIONE ORAL 5 MG/5 ML ORAL.SYRG PO STA (11:26)
--- NOTE | 2024-05-03 14:04 | P.PN ---
Subjective patient is seen for follow-up for end-stage renal disease. No significant complaints today. Awaiting surgery for left tib-fib fracture. INR remains elevated at 3.2. Surgery postponed for tomorrow. Objective - Vital Signs Vital signs: Vital Signs Temp 98.1 F 05/03/24 13:24 Pulse 70 05/03/24 13:24 Resp 17 05/03/24 13:24 BP 113/59 05/03/24 13:24 Pulse Ox 97 05/03/24 13:24 FiO2 Intake & Output 05/02/24 05/03/24 05/03/24 18:59 06:59 18:59 Intake Total 400 Output Total 0 Balance 400 0 Weight 84.822 kg Intake: Oral 400 Output: Urine 0 Other: # Voids 0 - Exam patient is awake, comfortable, no acute distress. Examination of the heart S1 and S2 Examination of the lungs bilateral breath sounds are heard Abdomen is soft nontender Examination of lower extremities shows left leg is wrapped [employer] exam grossly intact - Labs CBC & Chem 7: 05/03/24 03:52 05/03/24 03:52 Labs: Abnormal Lab Results - Last 24 Hours (Table) 05/03/24 05/03/24 05/03/24 Range/Units 03:52 03:52 03:52 WBC 10.30 H (4.50-10.00) X 10*3/uL RBC 2.27 L (4.40-5.60) X 10*6/uL Hgb 6.6 A* (13.0-17.0) g/dL Hct 22.0 L (39.6-50.0) % MCHC 30.0 L (32.0-37.0) g/dL RDW 18.9 H (11.5-14.5) % MPV 9.0 L (9.5-12.2) FL Monocytes # 1.27 H (0.20-1.00) X 10*3/uL Eosinophils # 0.36 H (0.04-0.35) X 10*3/uL Elliptocytes 2+ A PT 31.9 H (9.9-11.9) sec INR 3.19 H (0.93-1.11) sec Chloride 95 L (96-109) mmol/L Anion Gap 15.70 H (4.00-12.00) mmol/L BUN 51.8 H (9.0-27.0) mg/dL Creatinine 5.3 H (0.6-1.5) mg/dL Est GFR (CKD-EPI) 10 L (>=60) BUN/Creatinine Ratio 9.77 L (12.00-20.00) Ratio 05/03/24 Range/Units 08:04 WBC (4.50-10.00) X 10*3/uL RBC (4.40-5.60) X 10*6/uL Hgb (13.0-17.0) g/dL Hct (39.6-50.0) % MCHC (32.0-37.0) g/dL RDW (11.5-14.5) % MPV (9.5-12.2) FL Monocytes # (0.20-1.00) X 10*3/uL Eosinophils # (0.04-0.35) X 10*3/uL Elliptocytes PT 31.2 H (9.9-11.9) sec INR 3.2 H (0.93-1.11) sec Chloride (96-109) mmol/L Anion Gap (4.00-12.00) mmol/L BUN (9.0-27.0) mg/dL Creatinine (0.6-1.5) mg/dL Est GFR (CKD-EPI) (>=60) BUN/Creatinine Ratio (12.00-20.00) Ratio Assessment and Plan Assessment: 1. End-stage renal disease on hemodialysis on Saturday schedule via left arm AV fistula 2. Status post fall with left rib/fib fracture scheduled for surgery in a.m. 3. Coagulopathy from Coumadin with INR of 5.3 on admission, status post vitamin K 4. CK D mineral bone disorder 5. Chronic A. fib Plan: resume [facility] on 05/04/2024
--- NOTE | 2024-05-03 15:32 | CA ---
Transthoracic Echo Report Name: Lionel Fair Age: 79 Gender: M : 1945 Exam Date: 05/02/2024 12:53 Exam Location: [facility] Ht (in): 70 Wt (lb): 187 Ordering Physician: Víctor Yeager MD ([id number]) Attending/Referring Phys: Automobile Rental Clerk Erin Ureña RDCS Procedure CPT: Indications: preop Cardiac Hx: pacemaker Technical Quality: Good Contrast 1: Total Dose (mL): Contrast 2: Total Dose (mL): MEASUREMENTS (Male / Female) Normal Values 2D ECHO LV Diastolic Diameter PLAX 5.4 cm 4.2 - 5.9 / 3.9 - 5.3 cm LV Systolic Diameter PLAX 3.2 cm IVS Diastolic Thickness 1.2 cm 0.6 - 1.0 / 0.6 - 0.9 cm LVPW Diastolic Thickness 1.1 cm 0.6 - 1.0 / 0.6 - 0.9 cm LV Relative Wall Thickness 0.4 RV Internal Dim ED PLAX 3.2 cm LVOT Diameter 2.3 cm LA Systolic Diameter LX 4.7 cm 3.0 - 4.0 / 2.7 - 3.8 cm LV Diastolic Volume MOD 4C 103.2 cm??? LV Systolic Volume MOD 4C 43.3 cm??? LV Ejection Fraction MOD 4C 58.1 % LV Cardiac Index MOD 4C 1831.7 cm???/min???m??? LV Diastolic Length 4C 8.2 cm LV Systolic Length 4C 6.4 cm LV Diastolic Volume MOD 2C 120.2 cm??? LV Systolic Volume MOD 2C 55.7 cm??? LV Ejection Fraction MOD 2C 53.6 % LV Cardiac Index MOD 2C 1970.5 cm???/min???m??? LV Diastolic Length 2C 8.4 cm LV Systolic Length 2C 7.1 cm LA Volume 173.1 cm??? 18 - 58 / 22 - 52 cm??? LA Volume Index 84.0 cm???/m??? 16 - 28 cm???/m??? M-MODE Aortic Root Diameter MM 3.7 cm AV Cusp Separation MM 1.8 cm DOPPLER AV Peak Velocity 231.4 cm/s AV Peak Gradient 21.4 mmHg AV Mean Velocity 160.7 cm/s AV Mean Gradient 11.3 mmHg AV Velocity Time Integral 54.1 cm LVOT Peak Velocity 126.5 cm/s LVOT Peak Gradient 6.4 mmHg LVOT Velocity Time Integral 26.5 cm LVOT Stroke Volume 111.7 cm??? LVOT Stroke Volume Index 55.0 ml/m??? LVOT Cardiac Index 3413.9 cm???/min???m??? AV Area Cont Eq vti 2.1 cm??? AV Area Cont Eq pk 2.3 cm??? MV Peak Velocity 217.9 cm/s MV Peak Gradient 19.0 mmHg MV Mean Velocity 98.6 cm/s MV Mean Gradient 5.1 mmHg MV Velocity Time Integral 59.1 cm MV Area PHT 2.3 cm??? MR Peak Velocity 554.7 cm/s MR Peak Gradient 123.1 mmHg MV Deceleration Time 224.4 ms TR Peak Velocity 378.7 cm/s TR Peak Gradient 57.4 mmHg Right Ventricular Systolic Press 60.7 mmHg FINDINGS Left Ventricle Left ventricular ejection fraction is estimated at 55-60 %. Left ventricular cavity size normal. Mildly increased septal wall thickness. No obvious regional wall motion abnormalities. Right Ventricle Normal right ventricular size. Severe pulmonary hypertension. Right ventricular systolic pressure estimated at 61 mm hg. Right Atrium Severe right atrial dilatation. Left Atrium Moderately increased left atrial diameter. Severely increased left atrial volume. Moderately increased left atrial area. Mitral Valve Moderate thickening/calcification of the anterior mitral valve leaflet. Moderate thickening/calcification of the posterior mitral valve leaflet. Moderate mitral annular calcification. Moderate mitral stenosis. Moderate mitral regurgitation. Aortic Valve Trileaflet aortic valve. Aortic valve sclerosis. Mild aortic stenosis with a peak gradient of 21 mmHg and a mean gradient of 11 mmHg. Tricuspid Valve Structurally normal tricuspid valve. Moderate tricuspid regurgitation. Pulmonic Valve Structurally normal pulmonic valve. No pulmonic regurgitation. Pericardium No pericardial effusion. Aorta Normal size aortic root and proximal ascending aorta. CONCLUSIONS Normal LV systolic function Aortic sclerosis with mild aortic stenosis Thickened mitral valve leaflets with evidence of moderate mitral stenosis and moderate mitral insufficiency Severe pulmonary hypertension Dilated right ventricle Moderate tricuspid regurgitation Previewed by: Dr. Víctor Yeager MD (Electronically Signed) Final Date: 03 May 2024 15:31
--- NOTE | 2024-05-03 23:09 | P.PN ---
Subjective This is a pleasant 79 years old male with past medical history of multiple medical problems as below including end-stage renal disease, diastolic CHF and moderate to severe mitral and tricuspid regurgitation and A-fib on Coumadin Patient presents because he was eating and drinking in the kitchen and suddenly he passed out and fell to the ground with no warning. Patient denies chest pain No coughing. Patient states he is little short of breath but currently he is not tachypneic and he is talking freely with good oxygen saturation No vomiting or diarrhea or abdominal pain No chills, he does not make urine because he is dialysis patient He denies headache dizziness weakness or numbness He denies smoking or illicit drugs, he drinks occasionally very rarely as he explains He confirms he takes aspirin and warfarin at home He denies taking any antibiotic He takes trazodone at home and he wants to keep it Patient is hemodynamically stable. Afebrile Labs reviewed CBC is unremarkable except for anemia, hemoglobin 7.6 with a baseline 7.3-10.5 INR 5.3, repeat INR from today pending Creatinine 3.1 and he is dialysis patient Chest x-ray showing moderate CHF Ejection fraction from 09/2022: 50% Left lower extremity CT showing commuted fracture of the left distal tibia and fibula CT of the brain is negative for acute process EKG showing ventricular paced rhythm at 60 05/03 Patient awake looks tired and has mild distress due to his pain in his left leg No overt bleeding but hemoglobin today dropped to 6.6 with INR only down 3.2 Received monitor blood transfusion and also 5 mg of vitamin K with close following of INR and hemoglobin Surgery team are following closely for possible correction of his left ankle fracture Patient some risk from surgical intervention but there is no absolute contraindication once his hemoglobin and INR) controlled Patient scheduled for dialysis tomorrow Review of systems CONSTITUTIONAL: No fever, no malaise, no fatigue. HEENT: No recent visual problems or hearing problems. Denied any sore throat. CARDIOVASCULAR: No orthopnea, PND, no palpitations, no syncope. PULMONARY: No shortness of breath, no cough, no hemoptysis. GASTROINTESTINAL: No diarrhea, no nausea, no vomiting, no abdominal pain. Normoactive bowel sounds. NEUROLOGICAL: No headaches, no weakness, no numbness. Active Medications Generic Name Dose Route Start Last Admin Trade Name Freq PRN Reason Stop Dose Admin Acetaminophen 650 mg 05/02/24 07:18 05/02/24 13:28 Acetaminophen Tab 325 Mg Tab PO 650 mg Q6HR PRN Administration Mild Pain or Fever > 100.5 Diazepam 2 mg 05/03/24 09:50 Diazepam 2 Mg Tab PO TID PRN Spasms Famotidine 10 mg 05/02/24 21:00 05/03/24 21:11 Famotidine 20 Mg/2 Ml Vial IV 10 mg Q12HR GUILLERMO Administration Hydromorphone HCl 0.5 mg 05/02/24 07:18 Hydromorphone 0.5 Mg/0.5 Ml Syringe IVP Q3HR PRN Moderate Pain (Scale 4 to 6) Morphine Sulfate 4 mg 05/02/24 07:18 05/03/24 16:27 Morphine Sulfate 4 Mg/Ml Syringe IV 4 mg Q4HR PRN Administration Severe Pain (Scale 7 to 10) Naloxone HCl 0.2 mg 05/02/24 07:12 Naloxone 0.4 Mg/Ml 1 Ml Vial IV Q2M PRN Opioid Reversal Ondansetron HCl 4 mg 05/02/24 07:18 05/03/24 03:59 Ondansetron 4 Mg/2 Ml Vial IVP 4 mg Q8HR PRN Administration Nausea And Vomiting Objective - Vital Signs Vital signs: Vital Signs Temp 98.1 F 05/03/24 13:24 Pulse 70 05/03/24 13:24 Resp 17 05/03/24 13:24 BP 113/59 05/03/24 13:24 Pulse Ox 97 05/03/24 13:24 FiO2 Intake & Output 05/02/24 05/03/24 05/03/24 18:59 06:59 18:59 Intake Total 400 Output Total 0 Balance 400 0 Weight 84.822 kg Intake: Oral 400 Output: Urine 0 Other: # Voids 0 - Exam GENERAL: The patient is alert and oriented x3, not in any acute distress. Well developed, well nourished. HEENT: Pupils are round and equally reacting to light. EOMI. No scleral icterus. No conjunctival pallor. Normocephalic, atraumatic. No pharyngeal erythema. No thyromegaly. CARDIOVASCULAR: S1 and S2 present. No murmurs, rubs, or gallops. PULMONARY: Chest is clear to auscultation, no wheezing , no crackles. ABDOMEN: Soft, nontender, nondistended, normoactive bowel sounds. No palpable organomegaly. MUSCULOSKELETAL: No joint swelling or deformity. -EXTREMITIES: No cyanosis, clubbing, or pedal edema. Left leg and heart brace cast NEUROLOGICAL: Gross neurological examination did not reveal any focal deficits. SKIN: No rashes. no petechiae. - Labs CBC & Chem 7: 05/03/24 03:52 05/03/24 03:52 Labs: Abnormal Lab Results - Last 24 Hours (Table) 05/03/24 05/03/24 05/03/24 Range/Units 03:52 03:52 03:52 WBC 10.30 H (4.50-10.00) X 10*3/uL RBC 2.27 L (4.40-5.60) X 10*6/uL Hgb 6.6 A* (13.0-17.0) g/dL Hct 22.0 L (39.6-50.0) % MCHC 30.0 L (32.0-37.0) g/dL RDW 18.9 H (11.5-14.5) % MPV 9.0 L (9.5-12.2) FL Monocytes # 1.27 H (0.20-1.00) X 10*3/uL Eosinophils # 0.36 H (0.04-0.35) X 10*3/uL Elliptocytes 2+ A PT 31.9 H (9.9-11.9) sec INR 3.19 H (0.93-1.11) sec Chloride 95 L (96-109) mmol/L Anion Gap 15.70 H (4.00-12.00) mmol/L BUN 51.8 H (9.0-27.0) mg/dL Creatinine 5.3 H (0.6-1.5) mg/dL Est GFR (CKD-EPI) 10 L (>=60) BUN/Creatinine Ratio 9.77 L (12.00-20.00) Ratio 05/03/24 Range/Units 08:04 WBC (4.50-10.00) X 10*3/uL RBC (4.40-5.60) X 10*6/uL Hgb (13.0-17.0) g/dL Hct (39.6-50.0) % MCHC (32.0-37.0) g/dL RDW (11.5-14.5) % MPV (9.5-12.2) FL Monocytes # (0.20-1.00) X 10*3/uL Eosinophils # (0.04-0.35) X 10*3/uL Elliptocytes PT 31.2 H (9.9-11.9) sec INR 3.2 H (0.93-1.11) sec Chloride (96-109) mmol/L Anion Gap (4.00-12.00) mmol/L BUN (9.0-27.0) mg/dL Creatinine (0.6-1.5) mg/dL Est GFR (CKD-EPI) (>=60) BUN/Creatinine Ratio (12.00-20.00) Ratio Assessment and Plan Assessment: Syncope, rule out cardiac causes Fall with comminuted fractures of the left distal tibia and fibula End-stage renal disease on hemodialysis Coagulopathy secondary to Coumadin A-fib with heart rate controlled currently on Coumadin Acute on chronic CHF with diastolic ejection fraction 50% Moderate to severe mitral regurgitation and tricuspid regurgitation Chronic anemia Plan: Continue holding Coumadin and monitor INR. Status post 5 mg of vitamin K today Agree with cardiac evaluation preoperatively Once cleared by warranty manager. There is no absolute contraindication from medical perspective for the patient to proceed with surgery although he still at some risk from the surgery. Orthopedic primary team on the case Continue symptomatic treatment Continue with dialysis per nephrology team DVT prophylaxis. The patient already has high INR GI prophylaxis: Pepcid Prognosis is guarded
[2024-05-04 08:46] LABS: HCT 25.2 % (39.6-50.0); HGB 7.9 g/dL (13.0-17.0); MCH 29.6 pg (27.0-32.0); MCHC 31.3 g/dL (32.0-37.0); MCV 94.4 FL (80.0-97.0); Mean Platelet Volume 10.2 FL (9.5-12.2); NRBC Per 100 WBC 0 X 10*3/uL (0.00-0.01); Platelet Count 173 X 10*3/uL (140-440); RBC 2.67 X 10*6/uL (4.40-5.60); RDW 18.6 % (11.5-14.5); WBC 13.01 X 10*3/uL (4.50-10.00)
[2024-05-04 09:57] LABS: BUN/Creat Ratio 11.54 Ratio (12.00-20.00); Blood Urea Nitrogen 79.6 mg/dL (9.0-27.0); Calcium 8.7 mg/dL (8.7-10.3); Carbon Dioxide 23.6 mmol/L (21.6-31.8); Chloride 94 mmol/L (96-109); Glucose 118 mg/dL (70-110); Potassium 7.1 mmol/L (3.5-5.5); Sodium 138 mmol/L (135-145)
[2024-05-04 10:31] LABS: INR 2.69 sec (0.93-1.11); Prothrombin Time 27.2 sec (9.9-11.9)
--- NOTE | 2024-05-04 12:13 | P.PN ---
Subjective Progress Note Date: 05/04/24 This is a 79-year-old gentleman admitted with comminuted fractures of the left distal tibia and fibula status post fall, syncope, end-stage renal disease, anemia, hypercoagulopathy, atrial fibrillation, valvular heart disease, permanent pacemaker, CAD and multiple other medical issues. Anticoagulation rem ains on hold, received vitamin K 5 mg yesterday for INR of 3.2, 3.2 decreased today to 2.69. Scheduled for hemodialysis today, potassium 7.1, repeat level ordered post hemodialysis as per nephrology, hemoglobin increased to 7.9, platelets 173. Afebrile, WBC 13.1. Reports pain of the affected extremity. Objective - Vital Signs Vital signs: Vital Signs Temp 98.5 F 05/04/24 07:27 Pulse 66 05/04/24 08:00 Resp 20 05/04/24 08:00 BP 115/52 05/04/24 07:27 Pulse Ox 95 05/04/24 07:27 FiO2 Intake & Output 05/03/24 05/04/24 05/04/24 18:59 06:59 18:59 Intake Total 0 288 Output Total 0 0 Balance 0 288 0 Intake: Blood Product 0 288 Rc Pheresis As-3 Unit 0 288 [id number] Output: Urine 0 0 Other: # Voids 1 1 1 - Exam PHYSICAL EXAM: VITAL SIGNS: [As above] GENERAL: Alert and oriented x 3, sitting up in bed, no acute distress HEENT: Normocephalic, conjunctivae normal. eyes normal. NECK: Supple, no JVD. CARDIOVASCULAR: S1, S2 regular. Systolic murmur RESPIRATION: Unlabored, equal air entry ,breath sounds diminished in the bases. ABDOMEN: Soft, nontender . No guarding. +BS LEGS: Left lower extremity Eric wrapped, moving toes freely, positive sensation NERVOUS SYSTEM: Cranial N 2-12 grossly normal. No focal deficits. Strength and sensation grossly intact. Skin: Warm and dry, no rash - Labs CBC & Chem 7: 05/04/24 04:39 05/04/24 04:39 Labs: Abnormal Lab Results - Last 24 Hours (Table) 05/03/24 05/04/24 05/04/24 Range/Units 13:44 04:39 04:39 WBC 13.01 H (4.50-10.00) X 10*3/uL RBC 2.67 L (4.40-5.60) X 10*6/uL Hgb 7.9 L (13.0-17.0) g/dL Hct 25.2 L (39.6-50.0) % MCHC 31.3 L (32.0-37.0) g/dL RDW 18.6 H (11.5-14.5) % PT 27.2 H (9.9-11.9) sec INR 2.69 H (0.93-1.11) sec Potassium (3.5-5.5) mmol/L Chloride (96-109) mmol/L Anion Gap (4.00-12.00) mmol/L BUN (9.0-27.0) mg/dL Creatinine (0.6-1.5) mg/dL Est GFR (CKD-EPI) (>=60) BUN/Creatinine Ratio (12.00-20.00) Ratio Glucose (70-110) mg/dL Crossmatch See Detail 05/04/24 Range/Units 04:39 WBC (4.50-10.00) X 10*3/uL RBC (4.40-5.60) X 10*6/uL Hgb (13.0-17.0) g/dL Hct (39.6-50.0) % MCHC (32.0-37.0) g/dL RDW (11.5-14.5) % PT (9.9-11.9) sec INR (0.93-1.11) sec Potassium 7.1 A* (3.5-5.5) mmol/L Chloride 94 L (96-109) mmol/L Anion Gap 20.40 H (4.00-12.00) mmol/L BUN 79.6 H (9.0-27.0) mg/dL Creatinine 6.9 H (0.6-1.5) mg/dL Est GFR (CKD-EPI) 7 L (>=60) BUN/Creatinine Ratio 11.54 L (12.00-20.00) Ratio Glucose 118 H (70-110) mg/dL Crossmatch Assessment and Plan Assessment: Fracture of tibia with fibula, left, closed, status post fall, related to possible syncope. Coumadin coagulopathy, status post vitamin K Acute on chronic anemia secondary to Coumadin coagulopathy Chronic diastolic CHF End-stage renal disease on hemodialysis, history of cardiorenal syndrome. HD Saturday Chronic atrial fibrillation History of pacemaker implantation, complete heart block CAD Severe pulmonary hypertension Moderate to severe mitral regurgitation Moderate to severe tricuspid regurgitation Multivalvular heart disease including mild aortic stenosis Plan: Continue on current medication regimen ,monitoring and symptomatic treatment. Orthopedic surgery pending .additional vitamin K ordered. Repeat INR 1800. Hemodialysis today; potassium 7.1, repeat level 4 hours post HD, as per nephrology. Cardiology has signed off. prognosis guarded given multiple complex medical issues. The impression and plan of care has been dictated as directed. : I performed a history and examination of this patient, discussed the same with the dictator. I agree with the dictator's note ,documented as a scribe. Any additional findings or plans will be noted.
[2024-05-04] MEDS: PHYTONADIONE ORAL 5 MG/5 ML ORAL.SYRG PO STA ×2 (12:17→13:35)
--- NOTE | 2024-05-04 12:22 | P.PN ---
Subjective Progress Note Date: 05/04/24 Principal diagnosis: Left tib-fib fractures. Status post fall. Elevated INR. End-stage renal failure. This is an 79-year-old male who we are treating regarding his left tib-fib fra ctures. He was scheduled for surgery today. However, his INR is still elevated at 2.69. His potassium is 7.1. Hemoglobin 7.9. He is complaining of pain to the left leg. Objective - Vital Signs Vital signs: Vital Signs Temp 98.5 F 05/04/24 07:27 Pulse 66 05/04/24 08:00 Resp 20 05/04/24 08:00 BP 115/52 05/04/24 07:27 Pulse Ox 95 05/04/24 07:27 FiO2 Intake & Output 05/03/24 05/04/24 05/04/24 18:59 06:59 18:59 Intake Total 0 288 Output Total 0 0 Balance 0 288 0 Intake: Blood Product 0 288 Rc Pheresis As-3 Unit 0 288 [id number] Output: Urine 0 0 Other: # Voids 1 1 1 - Exam This is a pleasant 79-year-old male in no acute distress. He is having significant pain. Exam of the left lower extremity reveals the splint is intact. He has full toe motion without difficulty or pain. Neurovascular st atus to the lower extremity is intact. - Labs CBC & Chem 7: 05/04/24 04:39 05/04/24 04:39 Labs: Abnormal Lab Results - Last 24 Hours (Table) 05/03/24 05/04/24 05/04/24 Range/Units 13:44 04:39 04:39 WBC 13.01 H (4.50-10.00) X 10*3/uL RBC 2.67 L (4.40-5.60) X 10*6/uL Hgb 7.9 L (13.0-17.0) g/dL Hct 25.2 L (39.6-50.0) % MCHC 31.3 L (32.0-37.0) g/dL RDW 18.6 H (11.5-14.5) % PT 27.2 H (9.9-11.9) sec INR 2.69 H (0.93-1.11) sec Potassium (3.5-5.5) mmol/L Chloride (96-109) mmol/L Anion Gap (4.00-12.00) mmol/L BUN (9.0-27.0) mg/dL Creatinine (0.6-1.5) mg/dL Est GFR (CKD-EPI) (>=60) BUN/Creatinine Ratio (12.00-20.00) Ratio Glucose (70-110) mg/dL Crossmatch See Detail 05/04/24 Range/Units 04:39 WBC (4.50-10.00) X 10*3/uL RBC (4.40-5.60) X 10*6/uL Hgb (13.0-17.0) g/dL Hct (39.6-50.0) % MCHC (32.0-37.0) g/dL RDW (11.5-14.5) % PT (9.9-11.9) sec INR (0.93-1.11) sec Potassium 7.1 A* (3.5-5.5) mmol/L Chloride 94 L (96-109) mmol/L Anion Gap 20.40 H (4.00-12.00) mmol/L BUN 79.6 H (9.0-27.0) mg/dL Creatinine 6.9 H (0.6-1.5) mg/dL Est GFR (CKD-EPI) 7 L (>=60) BUN/Creatinine Ratio 11.54 L (12.00-20.00) Ratio Glucose 118 H (70-110) mg/dL Crossmatch Assessment and Plan (1) Fracture of tibia with fibula, left, closed Current Visit: Yes Status: Acute Code(s): S82.202A - UNSP FRACTURE OF SHAFT OF LEFT TIBIA, INIT FOR CLOS FX; S82.402A - UNSP FRACTURE OF SHAFT OF LEFT FIBULA, INIT FOR CLOS FX SNOMED Code(s): 472313073 (2) A-fib Current Visit: No Status: Acute Code(s): I48.91 - UNSPECIFIED ATRIAL FIBRILLATION SNOMED Code(s): 29179167 (3) Fall Current Visit: No Status: Acute Code(s): W19.XXXA - UNSPECIFIED FALL, INITIAL ENCOUNTER SNOMED Code(s): 3215261 (4) End stage renal disease Current Visit: No Status: Acute Code(s): N18.6 - END STAGE RENAL DISEASE SNOMED Code(s): 13801260 Plan: The clinical and x-ray findings are discussed with the patient. It is recommend ed he undergo closed reduction with insertion of intramedullary nail of the left tibia. The patient is INR is persistently elevated. I have asked internal medicine to address his elevated INR. He is currently having dialysis which should hopefully correct his hyperkalemia. Will order labs for first thing in the morning tomorrow. He is scheduled for surgery tomorrow at 1230.
--- NOTE | 2024-05-04 14:29 | P.PN ---
Subjective patient is seen for follow-up for end-stage renal disease. No significant complaints today. Awaiting surgery for left tib-fib fracture. currently seen on hemodialysis. Surgery postponed for tomorrow as potassium was elevated at 7.1 today. Objective - Vital Signs Vital signs: Vital Signs Temp 98.4 F 05/04/24 13:56 Pulse 73 05/04/24 13:56 Resp 20 05/04/24 13:56 BP 141/53 05/04/24 13:56 Pulse Ox 97 05/04/24 13:56 FiO2 Intake & Output 05/03/24 05/04/24 05/04/24 18:59 06:59 18:59 Intake Total 0 288 Output Total 0 0 Balance 0 288 0 Intake: Blood Product 0 288 Rc Pheresis As-3 Unit 0 288 [id number] Output: Urine 0 0 Other: # Voids 1 1 1 - Exam patient is awake, comfortable, no acute distress. Examination of the heart S1 and S2 Examination of the lungs bilateral breath sounds are heard Abdomen is soft nontender Examination of lower extremities shows left leg is wrapped GRAPHIC DESIGN INTERN exam grossly intact - Labs CBC & Chem 7: 05/04/24 04:39 05/04/24 04:39 Labs: Abnormal Lab Results - Last 24 Hours (Table) 05/03/24 05/04/24 05/04/24 Range/Units 13:44 04:39 04:39 WBC 13.01 H (4.50-10.00) X 10*3/uL RBC 2.67 L (4.40-5.60) X 10*6/uL Hgb 7.9 L (13.0-17.0) g/dL Hct 25.2 L (39.6-50.0) % MCHC 31.3 L (32.0-37.0) g/dL RDW 18.6 H (11.5-14.5) % PT 27.2 H (9.9-11.9) sec INR 2.69 H (0.93-1.11) sec Potassium (3.5-5.5) mmol/L Chloride (96-109) mmol/L Anion Gap (4.00-12.00) mmol/L BUN (9.0-27.0) mg/dL Creatinine (0.6-1.5) mg/dL Est GFR (CKD-EPI) (>=60) BUN/Creatinine Ratio (12.00-20.00) Ratio Glucose (70-110) mg/dL Crossmatch See Detail 05/04/24 Range/Units 04:39 WBC (4.50-10.00) X 10*3/uL RBC (4.40-5.60) X 10*6/uL Hgb (13.0-17.0) g/dL Hct (39.6-50.0) % MCHC (32.0-37.0) g/dL RDW (11.5-14.5) % PT (9.9-11.9) sec INR (0.93-1.11) sec Potassium 7.1 A* (3.5-5.5) mmol/L Chloride 94 L (96-109) mmol/L Anion Gap 20.40 H (4.00-12.00) mmol/L BUN 79.6 H (9.0-27.0) mg/dL Creatinine 6.9 H (0.6-1.5) mg/dL Est GFR (CKD-EPI) 7 L (>=60) BUN/Creatinine Ratio 11.54 L (12.00-20.00) Ratio Glucose 118 H (70-110) mg/dL Crossmatch Assessment and Plan Assessment: 1. End-stage renal disease on hemodialysis on Saturday schedule via left arm AV fistula 2. Status post fall with left rib/fib fracture scheduled for surgery in a.m. 3. Coagulopathy from Coumadin with INR of 5.3 on admission, status post vitamin K 4. CK D mineral bone disorder 5. Chronic A. fib Plan: resume Renvela repeat potassium 3-4 hours after hemodialysis treatment
[2024-05-04 18:19] LABS: INR 2.6 (<1.2); Prothrombin Time 25.3 sec (10.0-12.5)
[2024-05-05 05:52] LABS: Anisocytosis Slight; Basophils % (A) 0 %; Eosinophils % (A) 0 %; HCT 26.9 % (39.0-53.0); HGB 8.5 gm/dL (13.0-17.5); Hypochromasia Marked; Lymphocytes # (A) 0.8 k/uL (1.0-4.8); Lymphocytes % (A) 7 %; MCH 29.8 pg (25.0-35.0); MCHC 31.7 g/dL (31.0-37.0); MCV 93.9 fL (80.0-100.0); Mean Platelet Volume 7.8; Monocytes # (A) 0.9 k/uL (0-1.0); Monocytes % (A) 8 %; Neutrophils # (A) 10.2 k/uL (1.3-7.7); Neutrophils % (A) 84 %; Platelet Count 171 k/uL (150-450); RBC 2.87 m/uL (4.30-5.90); RDW 18.1 % (11.5-15.5); WBC 12.2 k/uL (3.8-10.6)
[2024-05-05 06:03] LABS: African American GFR (CKD) 14 (>60 ml/min/1.73 sqM); Albumin 3.8 g/dL (3.5-5.0); Albumin/Globulin Ratio 1.7; Anion Gap 13 mmol/L; Blood Urea Nitrogen 56 mg/dL (9-20); Carbon Dioxide 27 mmol/L (22-30); Chloride 94 mmol/L (98-107); Globulin 2.3 g/dL; Glucose 101 mg/dL (74-99); Non-African American GFR(CKD) 12 (>60 ml/min/1.73 sqM); Potassium 5.4 mmol/L (3.5-5.1); Sodium 134 mmol/L (137-145); Total Bilirubin 1.4 mg/dL (0.2-1.3); Total Protein 6.1 g/dL (6.3-8.2)
[2024-05-05 06:06] LABS: Prothrombin Time 20.2 sec (10.0-12.5)
[2024-05-05 06:09] LABS: ALT 1313 U/L (4-49)
[2024-05-05 06:13] LABS: AST 1193 U/L (17-59); Alkaline Phosphatase 97 U/L (38-126)
--- NOTE | 2024-05-05 09:30 | US ---
EXAMINATION TYPE: US gallbladder DATE OF EXAM: 05/05/2024 COMPARISON: NONE CLINICAL INDICATION: Male, 79 years old with history of elevated LFTS, abd pain; Elevated LFTs, abd p ain. TECHNIQUE: Multiple sonographic images of the right upper quadrant are obtained. FINDINGS: EXAM MEASUREMENTS: Liver Length: 13.5 cm Gallbladder Wall: 0.18 cm CBD: 0.58 cm Right Kidney: 8.6 x 3.8 x 3.6 cm DOUBLE END TENONER SETTER NOTES: Limited due to gas. Incidental finding- appearance of right pleural effusion. Pancreas: Obscured Liver: *Increased echogenicity, coarse echogenicity. Gallbladder: Hyperechoic focus with posterior shadowing seen within the neck: 1.9 x 1.7 x 1.4 cm. Evidence for sonographic Patel's sign: No CBD: Appears wnl Right Kidney: Measures slightly small. *Limited visibility of borders. Subcentimeter anechoic areas s een throughout. Complex area seen lower pole: 2.7 x 2.8 x 2.0 cm. IMPRESSION: 1. Cholelithiasis with stone at the gallbladder neck. 2. Right pleural effusion. 3. Mild hepatic steatosis.
[2024-05-05] MEDS ORDERED: IPRATROPIUM-ALBUTEROL 3 ML NEB INHALATION PRN (09:33)
--- NOTE | 2024-05-05 09:53 | P.PN ---
Subjective Progress Note Date: 05/05/24 This is a 79-year-old gentleman admitted with comminuted fractures of the left distal tibia and fibula status post fall, syncope, end-stage renal disease, anemia, hypercoagulopathy, atrial fibrillation, valvular heart disease, permanent pacemaker, CAD and multiple other medical issues. Anticoagulation rem ains on hold, received vitamin K 5 mg yesterday for INR of 3.2, 3.2 decreased today to 2.69. Scheduled for hemodialysis today, potassium 7.1, repeat level ordered post hemodialysis as per nephrology, hemoglobin increased to 7.9, platelets 173. Afebrile, WBC 13.1. Reports pain of the affected extremity. 05/05/2021 hemodialysis yesterday, n.p.o. as of midnight , IV fluids initiated this morning .positive pain. Appears fatigued, mildly disoriented. Has not recently has not recently been medicated for pain. Bicarb 27. Tmax 101.1, currently afebrile. Increased LFTs since admission, positive abdominal pain greatest - upper quadrants. WBC 12.2, hemoglobin 8.5, platelets 171, sodium 134, potassium 5.4, BUN 56, creatinine 4.32. T. bili 1.4, AST 1193, ALT 1313, alk phos 97. vague historian. received additional vitamin K yesterday with INR currently down to 2. Surgery pending. Denies chest pain, palpitations or shortness of breath. Maintaining O2 sats in the low 90s on 2 L nasal cannula. Objective - Vital Signs Vital signs: Vital Signs Temp 98.5 F 05/05/24 07:10 Pulse 72 05/05/24 07:10 Resp 18 05/05/24 07:10 BP 114/64 05/05/24 07:10 Pulse Ox 92 L 05/05/24 07:10 FiO2 Intake & Output 05/04/24 05/05/24 05/05/24 18:59 06:59 18:59 Intake Total 600 Output Total 3500 Balance -2900 Intake: Oral 100 Hemodialysis 500 Output: Urine 0 Hemodialysis 2000 Hemodialysis Net Amount 1500 Other: # Voids 0 0 # Bowel Movements 0 - Exam PHYSICAL EXAM: VITAL SIGNS: [As above] GENERAL: Alert and oriented x 2, lying in bed, fatigued, positive pain, no jaundice. HEENT: Normocephalic, conjunctivae normal. eyes normal. NECK: Supple, no JVD. CARDIOVASCULAR: S1, S2 regular. Systolic murmur RESPIRATION: Unlabored, equal air entry ,breath sounds diminished in the bases. ABDOMEN: Soft, nondistended, diffuse abdominal pain, no guarding, no rigidity. +BS LEGS: Left lower extremity Eric wrapped, moving toes freely, positive sensation. NERVOUS SYSTEM: Cranial N 2-12 grossly normal. No focal deficits. Strength and sensation grossly intact. Skin: Warm and dry, no rash - Labs CBC & Chem 7: 05/05/24 04:52 05/05/24 04:52 Labs: Abnormal Lab Results - Last 24 Hours (Table) 05/04/24 05/04/24 05/04/24 Range/Units 04:39 04:39 17:52 WBC (3.8-10.6) k/uL RBC (4.30-5.90) m/uL Hgb (13.0-17.5) gm/dL Hct (39.0-53.0) % RDW (11.5-15.5) % Neutrophils # (1.3-7.7) k/uL Lymphocytes # (1.0-4.8) k/uL PT 27.2 H 25.3 H (9.9-11.9) sec INR 2.69 H 2.6 H (0.93-1.11) sec Sodium (137-145) mmol/L Potassium 7.1 A* (3.5-5.5) mmol/L Chloride 94 L (96-109) mmol/L Anion Gap 20.40 H (4.00-12.00) mmol/L BUN 79.6 H (9.0-27.0) mg/dL Creatinine 6.9 H (0.6-1.5) mg/dL Est GFR (CKD-EPI) 7 L (>=60) BUN/Creatinine Ratio 11.54 L (12.00-20.00) Ratio Glucose 118 H (70-110) mg/dL Total Bilirubin (0.2-1.3) mg/dL AST (17-59) U/L ALT (4-49) U/L Total Protein (6.3-8.2) g/dL 07/30/24 07/30/24 07/30/24 Range/Units 04:52 04:52 04:52 WBC 12.2 H (3.8-10.6) k/uL RBC 2.87 L (4.30-5.90) m/uL Hgb 8.5 L (13.0-17.5) gm/dL Hct 26.9 L (39.0-53.0) % RDW 18.1 H (11.5-15.5) % Neutrophils # 10.2 H (1.3-7.7) k/uL Lymphocytes # 0.8 L (1.0-4.8) k/uL PT 20.2 H (9.9-11.9) sec INR 2.0 H (0.93-1.11) sec Sodium 134 L (137-145) mmol/L Potassium 5.4 H (3.5-5.5) mmol/L Chloride 94 L (96-109) mmol/L Anion Gap (4.00-12.00) mmol/L BUN 56 H (9.0-27.0) mg/dL Creatinine 4.32 H (0.6-1.5) mg/dL Est GFR (CKD-EPI) (>=60) BUN/Creatinine Ratio (12.00-20.00) Ratio Glucose 101 H (70-110) mg/dL Total Bilirubin 1.4 H (0.2-1.3) mg/dL AST 1193 H (17-59) U/L ALT 1313 H (4-49) U/L Total Protein 6.1 L (6.3-8.2) g/dL Assessment and Plan Assessment: Fracture of tibia with fibula, left, closed. Coumadin coagulopathy, status post vitamin K Acute on chronic anemia secondary to Coumadin coagulopathy, status post 1 unit packed RBCs Elevated LFTs since admission, workup in progress, GI consulted Chronic diastolic CHF End-stage renal disease on hemodialysis, history of cardiorenal syndrome. HD Saturday Chronic atrial fibrillation History of pacemaker implantation, complete heart block CAD Severe pulmonary hypertension Moderate to severe mitral regurgitation Moderate to severe tricuspid regurgitation Multivalvular heart disease including mild aortic stenosis Plan: Continue on current medication regimen ,monitoring and symptomatic treatment. IV fluids initiated this morning. INR down to 2, FFP as per orthopedic surgery. Surgery pending. Pain management and DVT prophylaxis as per orthopedic surgery. In regards to increased LFTs, ultrasound with gallbladder and GI consult initiated; possibly related to broken bones. hepatitis panel/screening ordered. Aggressive pulmonary toileting with nebulized bronchodilators, incentive spirometer ordered. The impression and plan of care has been dictated as directed. : I performed a history and examination of this patient, discussed the same with the dictator. I agree with the dictator's note ,documented as a scribe. Any additional findings or plans will be noted.
[2024-05-05] MEDS: IPRATROPIUM-ALBUTEROL 3 ML NEB INHALATION SCH (11:53)
[2024-05-05 12:36] LABS: INR 1.8 (<1.2)
--- NOTE | 2024-05-05 13:07 | P.CONS ---
History of Present Illness - Reason for Consult Consult date: 05/05/24 Elevated LFTs Requesting physician: Alvaro Foster - Chief Complaint Fall, tib-fib fracture - History of Present Illness This an 79-year-old male who had presented to the emergency department 3 days ago after sustaining a fall and complaining of leg pain. He was found to have left fracture of tibia and fibula and admitted and plan for surgery today. He has multiple comorbidities including end-stage renal disease on hemodialysis, atrial fibrillation with permanent pacemaker, and coronary artery disease. Yesterday he was noted to have a potassium of 7.1 and underwent hemodialysis, so surgery was canceled. He had repeat labs today which included CMP with noted elevated LFTs. Gastroenterology was consulted for elevated LFTs. On admission his LFTs were normal, his is at the bedside and provides most of the history. Denies any history of alcohol dependence, liver disease, or new medications. Does not appear that patient was started on any new medications here in the hospital. Patient seems somewhat confused and not answering any questions other than he states he has abdominal pain. states he has not had a bowel movement since he came in on Saturday. Today's labs WBC 12.2 hemoglobin 8.5 platelet count 171,000 INR 2.0 sodium 134 potassium 5.4 BUN 56 creatinine 4.3 total bilirubin 1.4 AST 1193 ALT 1313 alkaline phosphatase 97. Review of Systems REVIEW OF SYSTEMS: CARDIOPULMONARY: No chest pain or shortness of breath. Gastrointestinal: Abdominal pain unsure and duration. No nausea or vomiting. No hematemesis, coffee-ground emesis. No rectal bleeding, or melena. GENITOURINARY: No dysuria or hematuria. MUSCULOSKELETAL: Left leg pain SKIN: No rashes. No jaundice. ENDOCRINE: No chills, fevers. No excessive weight gain or loss. No polydipsia or polyuria. PSYCHIATRIC: Unremarkable. NEUROLOGY: No change in mental status. Denies dizziness, headache. ENT: Vision unremarkable. CONSTITUTIONAL: No recent weight loss. No fever, chills, night sweats. Past Medical History Past Medical History: Atrial Fibrillation, Dialysis, Eye Disorder Additional Past Medical History / Comment(s): heart murmur, Kidney Failure- Dialysis MOWEFR-has little urine output Cataracts. History of Any Multi-Drug Resistant Organisms: None Reported Past Surgical History: Joint Replacement, Pacemaker Additional Past Surgical History / Comment(s): Cardiac stents, right hip replacement,left upper arm av fistula Past Anesthesia/Blood Transfusion Reactions: No Reported Reaction Additional Past Anesthesia/Blood Transfusion Reaction / Comm: no problems with prior blood transfusion Type of Cardiac Device: Unknown Device Placement Date:: 2010 Past Psychological History: No Psychological Hx Reported Smoking Status: Never smoker Past Alcohol Use History: None Reported Past Drug Use History: None Reported - Past Family History Father Family Medical History: Hypertension Brother(s) Family Medical History: Cancer Additional Family Medical History / Comment(s): 2 brothers of cancer. Medications and Allergies Home Medications Medication Instructions Recorded Confirmed Type Aspirin EC [Ecotrin Low Dose] 81 mg PO DAILY 08/04/21 05/02/24 History Dialyvite 1 tab PO HS 08/04/21 05/02/24 History Sevelamer Carbonate 1,600 mg PO TID-W/MEALS 08/28/22 05/02/24 History levOCARNitine [Levocarnitine] 330 mg PO HS 01/15/23 05/02/24 History Atorvastatin [Lipitor] 20 mg PO DAILY 05/16/23 05/02/24 History Furosemide [Lasix] 40 mg PO BID 05/16/23 05/02/24 History Sildenafil [Revatio] 20 mg PO BID 05/16/23 05/02/24 History Warfarin [Coumadin] 2 mg PO TUWETH@2100 01/10/24 05/02/24 History Omeprazole 20 mg PO HS 02/15/24 05/02/24 History Warfarin [Coumadin] 3 mg PO SUMOFRSA@2100 02/15/24 05/02/24 History carvediloL [Coreg] 3.125 mg PO HS 02/15/24 05/02/24 History traZODone HCL [Desyrel] 50 mg PO HS 02/15/24 05/02/24 History Sevelamer [Renvela] 1,600 mg PO DAILY PRN 05/02/24 05/02/24 History buPROPion XL [Wellbutrin XL] 150 mg PO HS 05/02/24 05/02/24 History methylPREDNISolone [Medrol Dose See Taper PO DIRECTED 05/02/24 05/02/24 History Pack] Allergies Allergy/AdvReac Type Severity Reaction Status Date / Time No Known Allergies Allergy Verified 05/02/24 10:28 Physical Exam Vitals: Vital Signs Temp Pulse Resp BP Pulse Ox 05/05/24 08:00 72 18 05/05/24 07:10 98.5 F 72 18 114/64 92 L 05/05/24 00:18 98.4 F 74 16 124/56 92 L 05/04/24 19:43 101.1 F H 72 14 122/71 90 L 05/04/24 15:28 98.6 F 69 18 150/72 05/04/24 13:56 98.4 F 73 20 141/53 97 Intake and Output 05/04/24 05/05/24 05/05/24 22:59 06:59 14:59 Intake Total 600 Output Total 3500 0 Balance -2900 0 Intake: Oral 100 Hemodialysis 500 Output: Urine 0 Hemodialysis 2000 Hemodialysis Net Amount 1500 Other: # Voids 0 0 0 # Bowel Movements 0 0 General appearance: The patient appears in pain, confused. Appears in no acute distress. HET: Head is normocephalic and atraumatic. Conjunctiva pink. Sclera anicteric. Neck: Supple without lymphadenopathy. Trachea midline. Heart: Regular. Lungs: Equal expansion, normal respiratory effort. Abdomen: Soft, diffuse abdominal pain, nondistended. Skin: No rashes. No jaundice. Extremities: Left lower extremity in soft wrap. Neurological: Patient appears in pain, confused. Results CBC & Chem 7: 05/05/24 04:52 05/05/24 04:52 Labs: Abnormal Lab Results - Last 24 Hours (Table) 05/04/24 05/04/24 05/04/24 Range/Units 04:39 04:39 17:52 WBC (3.8-10.6) k/uL RBC (4.30-5.90) m/uL Hgb (13.0-17.5) gm/dL Hct (39.0-53.0) % RDW (11.5-15.5) % Neutrophils # (1.3-7.7) k/uL Lymphocytes # (1.0-4.8) k/uL PT 27.2 H 25.3 H (9.9-11.9) sec INR 2.69 H 2.6 H (0.93-1.11) sec Sodium (137-145) mmol/L Potassium 7.1 A* (3.5-5.5) mmol/L Chloride 94 L (96-109) mmol/L Anion Gap 20.40 H (4.00-12.00) mmol/L BUN 79.6 H (9.0-27.0) mg/dL Creatinine 6.9 H (0.6-1.5) mg/dL Est GFR (CKD-EPI) 7 L (>=60) BUN/Creatinine Ratio 11.54 L (12.00-20.00) Ratio Glucose 118 H (70-110) mg/dL Total Bilirubin (0.2-1.3) mg/dL AST (17-59) U/L ALT (4-49) U/L Total Protein (6.3-8.2) g/dL 05/05/24 05/05/24 05/05/24 Range/Units 04:52 04:52 04:52 WBC 12.2 H (3.8-10.6) k/uL RBC 2.87 L (4.30-5.90) m/uL Hgb 8.5 L (13.0-17.5) gm/dL Hct 26.9 L (39.0-53.0) % RDW 18.1 H (11.5-15.5) % Neutrophils # 10.2 H (1.3-7.7) k/uL Lymphocytes # 0.8 L (1.0-4.8) k/uL PT 20.2 H (9.9-11.9) sec INR 2.0 H (0.93-1.11) sec Sodium 134 L (137-145) mmol/L Potassium 5.4 H (3.5-5.5) mmol/L Chloride 94 L (96-109) mmol/L Anion Gap (4.00-12.00) mmol/L BUN 56 H (9.0-27.0) mg/dL Creatinine 4.32 H (0.6-1.5) mg/dL Est GFR (CKD-EPI) (>=60) BUN/Creatinine Ratio (12.00-20.00) Ratio Glucose 101 H (70-110) mg/dL Total Bilirubin 1.4 H (0.2-1.3) mg/dL AST 1193 H (17-59) U/L ALT 1313 H (4-49) U/L Total Protein 6.1 L (6.3-8.2) g/dL Comments: Gallbladder ultrasound reports cholelithiasis with stone at the gallbladder neck. Right pleural effusion. Mild hepatic steatosis. No CBD dilation. Assessment and Plan (1) Elevated LFTs Narrative/Plan: 79-year-old male presents after sustaining a fall and left tib-fib fracture who is supposed to undergo surgery today. He has multiple comorbidities including end-stage renal disease on hemodialysis underwent dialysis yesterday. Presenting with normal LFTs with repeat labs today showing acute significant elevation in his LFTs. Total bilirubin mildly elevated at 1.4, AST 1193 ALT 1313 alkaline phosphatase 97. He did have a gallbladder ultrasound that does report a gallstone at the neck of the gallbladder with no CBD dilation and labs are not in a cholestatic pattern and likely more of a shock liver secondary to underlying comorbidities. However, need to consider possibility of underlying liver disease as noted on ultrasound possibly secondary to nonalcoholic fatty liver. Possible hypoperfusion during hemodialysis and patient noted to be anemic status post 1 unit of blood and supratherapeutic INR. Will obtain hepatitis C panel however no further workup indicated at this time. Current Visit: Yes Status: Acute Code(s): R79.89 - OTHER SPECIFIED ABNORMAL FINDINGS OF BLOOD CHEMISTRY SNOMED Code(s): 975669066 (2) Fracture of tibia with fibula, left, closed Current Visit: Yes Status: Acute Code(s): S82.202A - UNSP FRACTURE OF SHAFT OF LEFT TIBIA, INIT FOR CLOS FX; S82.402A - UNSP FRACTURE OF SHAFT OF LEFT FIBULA, INIT FOR CLOS FX SNOMED Code(s): 535852135 (3) A-fib Current Visit: No Status: Acute Code(s): I48.91 - UNSPECIFIED ATRIAL FIBRILLATION SNOMED Code(s): 28945059 (4) ESRD (end stage renal disease) on dialysis Current Visit: No Status: Acute Code(s): N18.6 - END STAGE RENAL DISEASE; Z99.2 - DEPENDENCE ON RENAL DIALYSIS SNOMED Code(s): 951833737 (5) Supratherapeutic INR Current Visit: No Status: Acute Code(s): R79.1 - ABNORMAL COAGULATION PROFILE SNOMED Code(s): 431288052 Plan: 1. Continue symptomatic and supportive care 2. Obtain hepatitis panel 3. Daily CBC, INR, CMP 4. Gallbladder ultrasound reviewed 5. Continue with recommendations and surgery by orthopedics 6. No further GI workup indicated at this time, further recommendations forthcoming based on clinical course, Thank you for this consultation, we will continue to follow. Dr. Linda Arredondo I agree with the dictator's note, documented as a scribe by Radha Lind.
--- NOTE | 2024-05-05 13:31 | P.PN ---
Subjective patient is seen for follow-up for end-stage renal disease. Awaiting surgery for left tib-fib fracture. scheduled for hemodialysis in a.m. Objective - Vital Signs Vital signs: Vital Signs Temp 98.2 F 05/05/24 12:40 Pulse 60 05/05/24 12:40 Resp 16 05/05/24 12:40 BP 137/61 05/05/24 12:40 Pulse Ox 92 L 05/05/24 07:10 FiO2 Intake & Output 05/04/24 05/05/24 05/05/24 18:59 06:59 18:59 Intake Total 600 311 Output Total 3500 0 Balance -2900 311 Intake: Oral 100 Blood Product 311 Ffp 24 Cpd Unit 311 [id number] Hemodialysis 500 Output: Urine 0 0 Hemodialysis 2000 Hemodialysis Net Amount 1500 Other: # Voids 0 0 0 # Bowel Movements 0 0 - Exam patient is awake, comfortable, no acute distress. Examination of the heart S1 and S2 Examination of the lungs bilateral breath sounds are heard Abdomen is soft nontender Examination of lower extremities shows left leg is wrapped BILINGUAL SPEECH THERAPIST exam grossly intact - Labs CBC & Chem 7: 05/05/24 04:52 05/05/24 04:52 Labs: Abnormal Lab Results - Last 24 Hours (Table) 05/04/24 05/05/24 05/05/24 Range/Units 17:52 04:52 04:52 WBC 12.2 H (3.8-10.6) k/uL RBC 2.87 L (4.30-5.90) m/uL Hgb 8.5 L (13.0-17.5) gm/dL Hct 26.9 L (39.0-53.0) % RDW 18.1 H (11.5-15.5) % Neutrophils # 10.2 H (1.3-7.7) k/uL Lymphocytes # 0.8 L (1.0-4.8) k/uL PT 25.3 H 20.2 H (10.0-12.5) sec INR 2.6 H 2.0 H (<1.2) Sodium (137-145) mmol/L Potassium (3.5-5.1) mmol/L Chloride (98-107) mmol/L BUN (9-20) mg/dL Creatinine (0.66-1.25) mg/dL Glucose (74-99) mg/dL Total Bilirubin (0.2-1.3) mg/dL AST (17-59) U/L ALT (4-49) U/L Total Protein (6.3-8.2) g/dL 05/05/24 05/05/24 Range/Units 04:52 12:19 WBC (3.8-10.6) k/uL RBC (4.30-5.90) m/uL Hgb (13.0-17.5) gm/dL Hct (39.0-53.0) % RDW (11.5-15.5) % Neutrophils # (1.3-7.7) k/uL Lymphocytes # (1.0-4.8) k/uL PT 18.0 H (10.0-12.5) sec INR 1.8 H (<1.2) Sodium 134 L (137-145) mmol/L Potassium 5.4 H (3.5-5.1) mmol/L Chloride 94 L (98-107) mmol/L BUN 56 H (9-20) mg/dL Creatinine 4.32 H (0.66-1.25) mg/dL Glucose 101 H (74-99) mg/dL Total Bilirubin 1.4 H (0.2-1.3) mg/dL AST 1193 H (17-59) U/L ALT 1313 H (4-49) U/L Total Protein 6.1 L (6.3-8.2) g/dL Assessment and Plan Assessment: 1. End-stage renal disease on hemodialysis on Saturday schedule via left arm AV fistula 2. Status post fall with left rib/fib fracture , awaiting surgery. 3. Coagulopathy from Coumadin with INR of 5.3 on admission, status post vitamin K 4. CK D mineral bone disorder 5. Chronic A. fib Plan: hemodialysis on Saturday schedule
[2024-05-05] MEDS: IV FLUID CONTINUATION 500 ML IV ONE (15:45)
[2024-05-05] MEDS ORDERED: ONDANSETRON 4 MG/2 ML VIAL ONE (15:57)
[2024-05-05] MEDS ORDERED: PHENYLEPHRINE-0.9% NACL SYG 1,000 MCG/10 ML SYRINGE ONE (15:57)
[2024-05-05] MEDS ORDERED: GLYCOPYRROLATE 0.2 MG/ML 2 ML VIAL ONE (15:57)
[2024-05-05] MEDS ORDERED: PROPOFOL 10 MG/ML 20 ML VIAL IV ONE (15:57)
[2024-05-05] MEDS ORDERED: LIDOCAINE 1% INJ 10MG/ML (20 ML MDV) ONE (15:57)
[2024-05-05] MEDS ORDERED: ROCURONIUM 10 MG/ML (5 ML VIAL) IV ONE (15:57)
[2024-05-05] MEDS ORDERED: ceFAZolin 1 GM/50 ML BAG (PMX) ONE (15:57)
[2024-05-05] MEDS ORDERED: NEOSTIGMINE 1 MG/ML 10 ML VIAL ONE (15:57)
[2024-05-05] MEDS ORDERED: fentaNYL (PF) 50 MCG/ML 2 ML AMP ONE (15:57)
[2024-05-05] MEDS: SODIUM CHLORIDE 0.9% 50 ML with ceFAZolin 2,000 MG IV ONE (16:02)
[2024-05-05] MEDS: SODIUM CHLORIDE 0.9% 500 ML 500 ML IV ONE ×2 (16:02→18:18)
[2024-05-05 16:53] LABS: Hepatitis A Antibody IgM Nonreactive (Nonreactive); Hepatitis B Core IgM Nonreactive (Nonreactive); Hepatitis B Surface Antigen Nonreactive (Nonreactive); Hepatitis C IgG Antibody Nonreactive (Nonreactive)
[2024-05-05] MEDS: LIDOCAINE 1% INJ 10MG/ML (20 ML MDV) SQ ONE ×2 (17:54)
[2024-05-05] MEDS: LIDOCAINE 2%-EPI 1:100,000 20 ML VIAL SQ ONE ×2 (17:54)
--- NOTE | 2024-05-05 18:44 | XR ---
Intraoperative/procedural fluoroscopic services were provided for left tibia intramedullary florin fixat ion. Total fluoroscopy time is 1.48 seconds with a total of 4 submitted images to PACS. Total DAP 1.4 774 Gycm2. Please see the operative note for further details.
--- NOTE | 2024-05-05 19:11 | XR ---
EXAMINATION TYPE: XR tibia fibula LT DATE OF EXAM: 05/05/2024 7:00 PM CLINICAL INDICATION:Male, 79 years old with history of post op; [facility] COMPARISON: Preoperative tibia fibula left leg from 05/02/2024 TECHNIQUE: XR tibia fibula LT; tibia/fibula was examined in AP and lateral projections. FINDINGS: The prior study shows malalignment fracture fragments from a fracture in the fibula between the proxi mal two thirds and distal one third. On the current study this is undergone open reduction internal f ixation with a long medullary nail. The fracture shows near anatomic position and alignment. IMPRESSION: ORIF distal tibial fracture.
[2024-05-05] MEDS: hydrALAZINE HCL 20 MG/ML 1 ML VIAL IVP STA (19:27)
[2024-05-05] MEDS: SODIUM CHLORIDE 0.9% 1,000 ML IV SCH (20:28)
[2024-05-06] MEDS: SENNOSIDES-DOCUSATE SODIUM 1 EACH TAB PO SCH (08:03)
--- NOTE | 2024-05-06 08:58 | P.PN ---
Subjective Progress Note Date: 05/06/24 Principal diagnosis: Status post left tibia IM nail This is a 79 year-old male post left tibia IM nail. This is post-op day 1. The patient was evaluated at the bedside today. The patient is alert but falls back to sleep easily. Not answering questions this morning. The patient has not been up with physical therapy. Objective - Vital Signs Vital signs: Vital Signs Temp 97.9 F 05/06/24 07:24 Pulse 69 05/06/24 07:24 Resp 17 05/06/24 07:24 BP 149/65 05/06/24 07:24 Pulse Ox 100 05/06/24 07:24 FiO2 Intake & Output 05/05/24 05/06/24 05/06/24 18:59 06:59 18:59 Intake Total 811 75 Output Total 10 Balance 801 75 Weight 84.822 kg 84.822 kg Intake: IV 500 75 Blood Product 311 Unit 0 Ffp 24 Cpd Unit 311 [id number] Ffp 24 Pher Acda Unit 0 [id number] Output: Urine 0 Estimated Blood Loss 10 Other: # Voids 0 0 # Bowel Movements 0 - Exam The patient does not appear in acute distress. Alert and orientated x1. Dressing and splint has some shadowing on the medial aspect of the ankle. Able to wiggle his toes without difficulty. Toes are warm to touch. Sensation and circulatory status is intact. - Labs CBC & Chem 7: 05/05/24 04:52 05/05/24 04:52 Labs: Abnormal Lab Results - Last 24 Hours (Table) 05/05/24 Range/Units 12:19 PT 18.0 H (10.0-12.5) sec INR 1.8 H (<1.2) Assessment and Plan (1) Fracture of tibia with fibula, left, closed Current Visit: Yes Status: Acute Code(s): S82.202A - UNSP FRACTURE OF SHAFT OF LEFT TIBIA, INIT FOR CLOS FX; S82.402A - UNSP FRACTURE OF SHAFT OF LEFT FIBULA, INIT FOR CLOS FX SNOMED Code(s): 953417678 (2) CHF (congestive heart failure) Current Visit: No Status: Acute Code(s): I50.9 - HEART FAILURE, UNSPECIFIED SNOMED Code(s): 90727012 (3) End stage renal disease Current Visit: No Status: Acute Code(s): N18.6 - END STAGE RENAL DISEASE SNOMED Code(s): 37306036 Plan: 1. Continue pain control 2. May resume Coumadin now, management by IM. 3. Start physical therapy and ambulation, non-weightbearing to the left leg. 4. Anticipate discharge home with homecare vs. skilled rehab depending on the patient's course.
--- NOTE | 2024-05-06 09:54 | P.PN ---
Subjective Progress Note Date: 05/06/24 This is a 79-year-old gentleman admitted with comminuted fractures of the left distal tibia and fibula status post fall, syncope, end-stage renal disease, anemia, hypercoagulopathy, atrial fibrillation, valvular heart disease, permanent pacemaker, CAD and multiple other medical issues. Anticoagulation rem ains on hold, received vitamin K 5 mg yesterday for INR of 3.2, 3.2 decreased today to 2.69. Scheduled for hemodialysis today, potassium 7.1, repeat level ordered post hemodialysis as per nephrology, hemoglobin increased to 7.9, platelets 173. Afebrile, WBC 13.1. Reports pain of the affected extremity. 05/05/2021 hemodialysis yesterday, n.p.o. as of midnight , IV fluids initiated this morning .positive pain. Appears fatigued, mildly disoriented. Has not recently has not recently been medicated for pain. Bicarb 27. Tmax 101.1, currently afebrile. Increased LFTs since admission, positive abdominal pain greatest - upper quadrants. WBC 12.2, hemoglobin 8.5, platelets 171, sodium 134, potassium 5.4, BUN 56, creatinine 4.32. T. bili 1.4, AST 1193, ALT 1313, alk phos 97. vague historian. received additional vitamin K yesterday with INR currently down to 2. Surgery pending. Denies chest pain, palpitations or shortness of breath. Maintaining O2 sats in the low 90s on 2 L nasal cannula. 05/06/2024 status post left tibia IM nail, postop day #1. Tolerated procedure well. Fatigued, sleepy, disoriented. Denies pain at rest. Denies chest pain, palpitations or shortness of breath. Maintaining O2 sats in the high 90s on 3 L nasal cannula. Elevated LFTs yesterday, ultrasound of gallbladder reported cholelithiasis with stone at the gallbladder neck, right pleural effusion, mild hepatic steatosis. F/U labs pending. Hemodialysis today. Objective - Vital Signs Vital signs: Vital Signs Temp 97.9 F 05/06/24 07:24 Pulse 76 05/06/24 09:24 Resp 17 05/06/24 07:24 BP 149/65 05/06/24 07:24 Pulse Ox 97 05/06/24 09:19 FiO2 Intake & Output 05/05/24 05/06/24 05/06/24 18:59 06:59 18:59 Intake Total 811 75 Output Total 10 Balance 801 75 Weight 84.822 kg 84.822 kg Intake: IV 500 75 Blood Product 311 Unit 0 Ffp 24 Cpd Unit 311 [id number] Ffp 24 Pher Acda Unit 0 [id number] Output: Urine 0 Estimated Blood Loss 10 Other: # Voids 0 0 # Bowel Movements 0 - Exam PHYSICAL EXAM: VITAL SIGNS: [As above] GENERAL: Alert and oriented x 2, lying in bed, fatigued, sleepy, dozes off. HEENT: Normocephalic, conjunctivae normal. eyes normal. NECK: Supple, no JVD. CARDIOVASCULAR: S1, S2 regular. Systolic murmur RESPIRATION: Unlabored, equal air entry ,breath sounds diminished with fine right basilar crackles. ABDOMEN: Soft, nondistended, diffuse abdominal pain, no guarding, no rigidity. +BS LEGS: Left lower extremity Eric wrapped shadowing, toes warm- moving freely, positive sensation. NERVOUS SYSTEM: Cranial N 2-12 grossly normal. No focal deficits. Strength and sensation grossly intact. Skin: Warm and dry, no rash - Labs CBC & Chem 7: 05/05/24 04:52 05/05/24 04:52 Labs: Abnormal Lab Results - Last 24 Hours (Table) 05/05/24 Range/Units 12:19 PT 18.0 H (10.0-12.5) sec INR 1.8 H (<1.2) Assessment and Plan Assessment: Fracture of tibia with fibula, left, closed, status post left tibia IM nail. Acute toxic, metabolic encephalopathy, medication, anesthesia related Coumadin coagulopathy, supratherapeutic, status post vitamin K Acute on chronic anemia secondary to Coumadin coagulopathy, status post 1 unit packed RBCs Acute hypoxic respiratory failure secondary to all the above Elevated LFTs since admission, possibly related to hypoperfusion during HD as per GI, possibly. Cholelithiasis with stone at the gallbladder neck reported per ultrasound Mild hepatic steatosis Chronic diastolic CHF End-stage renal disease on hemodialysis, history of cardiorenal syndrome. HD Saturday Chronic atrial fibrillation History of pacemaker implantation, complete heart block CAD Severe pulmonary hypertension Moderate to severe mitral regurgitation Moderate to severe tricuspid regurgitation Multivalvular heart disease including mild aortic stenosis Plan: Continue on current medication regimen ,monitoring and symptomatic treatment. Labs pending/close monitoring of LFTs, INR. Orthopedic surgery has okayed patient to resume Coumadin. Coumadin per pharmacy dosing ordered. pain management as per orthopedic surgery. PT. discussed with RN, getting patient up in chair, encourage oral intake .aggressive pulmonary toileting with nebulized bronchodilators, incentive spirometer reinforced. Hemodialysis today as per nephrology. The impression and plan of care has been dictated as directed. : I performed a history and examination of this patient, discussed the same with the dictator. I agree with the dictator's note ,documented as a scribe. Any additional findings or plans will be noted.
[2024-05-06 11:13] LABS: ALT 1121 U/L (10-49); AST 662 U/L (14-35); Albumin 3.9 g/dL (3.8-4.9); Alkaline Phosphatase 110 U/L (41-126); Blood Urea Nitrogen 81.2 mg/dL (9.0-27.0); Calcium 9.1 mg/dL (8.7-10.3); Carbon Dioxide 25.4 mmol/L (21.6-31.8); Chloride 94 mmol/L (96-109); Globulin 2.3 g/dL (1.6-3.3); Glucose 115 mg/dL (70-110); Potassium 5.7 mmol/L (3.5-5.5); Sodium 139 mmol/L (135-145); Total Protein 6.2 g/dL (6.2-8.2)
--- NOTE | 2024-05-06 11:26 | P.OP ---
Date of Procedure: 05/05/24 Preoperative Diagnosis: Left tibial shaft fracture Postoperative Diagnosis: same Procedure(s) Performed: Left tibia IM Nail Implants: [place] tibial nail, 11mm x 330mm, interlocking screws Anesthesia: ONELIA Surgeon: Kimi Tsang Pot Puller #1: Bessy Murrieta Estimated Blood Loss (ml): 20 Pathology: none sent Condition: stable Disposition: PACU Indications for Procedure: The patient had a ground level fall on 05/01/24. He has been medically optimized and we will proceed with reduction and fixation of his comminuted and displaced distal third tibial shaft fracture. Operative Findings: Small fracture blister to the anterior aspect of the fracture, skin is otherwise intact. Comminuted spiral fracture of the distal third tibia. Bone is quite osteoporotic. Description of Procedure: The patient, operative extremity, and procedure were identified in the preop holding area. After informed consent was obtained, the patient was brought back to the OR. After intubation, the patient was moved onto the OR bed and positioned supine with a bone foam ramp and tourniquet for the operative leg. The extremity was prepped and draped in normal sterile fashion. A formal timeout was performed and the tourniquet was inflated. A longitudinal incision was made along the lateral third of the patella. Dissection was carried down to the extensor retinaculum and this was split long itudinally just lateral to the patella. This was extended down to the lateral aspect of the patellar tendon with care taken to stay superficial to the knee capsule. The patella was then mobilized medially. The guide wire was introduced and the starting point was identified with fluoro on orthogonal views. The medial aspect of the lateral tibial spine and just anterior to the articular surface was used as landmarks. The patients bone was quite soft and the guide wire was able to puncture the cortex with hand pressure on the guide wire. The direction of the wire was confirmed before the opening reamer was utilized. The ball tip guide wire was then introduced. The fracture was reduced with traction and manual manipulation. The guide wire was advanced past the comminuted area and placed center/center in the physeal scar of the distal tibia. The ruler was used to choose the length of the nail. While holding the reduction, serial reamers were utilized until good chatter was noted in the isthmus. Reaming was taken another millimeter. Care was taken to push past the fracture site without reaming. A nail 1.5mm smaller in diameter was chosen. The selected nail was then carefully advanced over the guide wire. Placement and reduction were confirmed on fluoroscopy at both the proximal and distal joints. The guide wire was removed. An oblique and medial screw were applied to secure the proximal aspect. Reduction was again assessed and showed adequate length and alignment. The distal aspect of the nail was then secured using perfect [place] technique. Final fluro showed adequate reduction and placement of the hardware. Tourniquet was let down. The extensor retinaculum was repaired with 0 vicryl and the remainder of the wounds were closed with a combination of 3.0 vicryl and 3.0 nylon. Wounds were dressed and a posterior splint was applied.
--- NOTE | 2024-05-06 12:54 | P.PN ---
Subjective patient is seen for follow-up for end-stage renal disease. status post left tibia IM nail on 05/05/2024. Next Patient is seen on hemodialysis. Tolerating treatment well. Liver enzymes noted to be significantly elevated. cholelithiasis noted at gall bladder neck Objective - Vital Signs Vital signs: Vital Signs Temp 97.9 F 05/06/24 07:24 Pulse 76 05/06/24 09:24 Resp 17 05/06/24 07:24 BP 149/65 05/06/24 07:24 Pulse Ox 97 05/06/24 09:19 FiO2 Intake & Output 05/05/24 05/06/24 05/06/24 18:59 06:59 18:59 Intake Total 811 75 Output Total 10 Balance 801 75 Weight 84.822 kg 84.822 kg Intake: IV 500 75 Blood Product 311 Unit 0 Ffp 24 Cpd Unit 311 [id number] Ffp 24 Pher Acda Unit 0 [id number] Output: Urine 0 Estimated Blood Loss 10 Other: # Voids 0 0 # Bowel Movements 0 - Exam patient is awake, comfortable, no acute distress. Examination of the heart S1 and S2 Examination of the lungs bilateral breath sounds are heard Abdomen is soft nontender Examination of lower extremities shows left leg is wrapped PAMPHLET DISTRIBUTOR exam grossly intact - Labs CBC & Chem 7: 05/05/24 04:52 05/06/24 06:59 Labs: Abnormal Lab Results - Last 24 Hours (Table) 05/06/24 Range/Units 06:59 Potassium 5.7 H (3.5-5.5) mmol/L Chloride 94 L (96-109) mmol/L Anion Gap 19.60 H (4.00-12.00) mmol/L BUN 81.2 H (9.0-27.0) mg/dL Creatinine 6.2 H (0.6-1.5) mg/dL Est GFR (CKD-EPI) 9 L (>=60) Glucose 115 H (70-110) mg/dL AST 662 H (14-35) U/L ALT 1121 H (10-49) U/L Assessment and Plan Assessment: 1. End-stage renal disease on hemodialysis on Saturday schedule via left arm AV fistula 2. Status post fall with left rib/fib fracture , status post IM nailing on 05/05/2024 3. Coagulopathy from Coumadin with INR of 5.3 on admission, status post vitamin K 4. CK D mineral bone disorder 5. Chronic A. fib 6. Cholelithiasis at the gallbladder neck, GI on consult Plan: hemodialysis on Saturday schedule
--- NOTE | 2024-05-06 16:52 | P.PN ---
Subjective Progress Note Date: 05/06/24 Principal diagnosis: Elevated LFTs This an 79-year-old male who had presented to the emergency department 3 days ago after sustaining a fall and complaining of leg pain. He was found to have left fracture of tibia and fibula and admitted and plan for surgery today. He has multiple comorbidities including end-stage renal disease on hemodialysis, atrial fibrillation with permanent pacemaker, and coronary artery disease. Yesterday he was noted to have a potassium of 7.1 and underwent hemodialysis, so surgery was canceled. He had repeat labs today which included CMP with noted elevated LFTs. Gastroenterology was consulted for elevated LFTs. On admission his LFTs were normal, his is at the bedside and provides most of the history. Denies any history of alcohol dependence, liver disease, or new medications. Does not appear that patient was started on any new medications here in the hospital. Patient seems somewhat confused and not answering any questions other than he states he has abdominal pain. states he has not had a bowel movement since he came in on Saturday. Today's labs WBC 12.2 hemoglobin 8.5 platelet count 171,000 INR 2.0 sodium 134 potassium 5.4 BUN 56 creatinine 4.3 total bilirubin 1.4 AST 1193 ALT 1313 alkaline phosphatase 97. 05/06/2024 Patient seen and examined today as a follow-up. Yesterday he underwent surgery of the left tib-fib fracture. Today he is currently getting hemodialysis. He denies any abdominal pain, nausea or vomiting. LFTs have trended down today total bilirubin 1.0 AST 662 ALT 1121 alkaline phosphatase 110 hepatitis panel nonreactive. Objective - Vital Signs Vital signs: Vital Signs Temp 97.9 F 05/06/24 07:24 Pulse 69 05/06/24 07:24 Resp 17 05/06/24 07:24 BP 149/65 05/06/24 07:24 Pulse Ox 100 05/06/24 07:24 FiO2 Intake & Output 05/05/24 05/06/24 05/06/24 18:59 06:59 18:59 Intake Total 811 75 Output Total 10 Balance 801 75 Weight 84.822 kg 84.822 kg Intake: IV 500 75 Blood Product 311 Unit 0 Ffp 24 Cpd Unit 311 [id number] Ffp 24 Pher Acda Unit 0 [id number] Output: Urine 0 Estimated Blood Loss 10 Other: # Voids 0 0 # Bowel Movements 0 - Exam General appearance: The patient is alert, oriented, appears in no acute distress. HET: Head is normocephalic and atraumatic. Conjunctiva pink. Sclera anicteric. Neck: Supple without lymphadenopathy. Abdomen: Soft, nontender, nondistended with bowel sounds. No guarding or rigidity. Extremities: Left leg in Eric wrap. Skin: No rashes, no jaundice Neurological: No focal deficits. Alert and oriented. - Labs CBC & Chem 7: 05/05/24 04:52 05/06/24 06:59 Labs: Abnormal Lab Results - Last 24 Hours (Table) 05/05/24 Range/Units 12:19 PT 18.0 H (10.0-12.5) sec INR 1.8 H (<1.2) Assessment and Plan (1) Elevated LFTs Narrative/Plan: 79-year-old male presents after sustaining a fall and left tib-fib fracture who is supposed to undergo surgery today. He has multiple comorbidities including end-stage renal disease on hemodialysis underwent dialysis yesterday. Presenting with normal LFTs with repeat labs today showing acute significant elevation in his LFTs. Total bilirubin mildly elevated at 1.4, AST 1193 ALT 1313 alkaline phosphatase 97. He did have a gallbladder ultrasound that does report a gallstone at the neck of the gallbladder with no CBD dilation and labs are not in a cholestatic pattern and likely more of a shock liver secondary to underlying comorbidities. However, need to consider possibility of underlying liver disease as noted on ultrasound possibly secondary to nonalcoholic fatty liver. Possible hypoperfusion during hemodialysis and patient noted to be anemic status post 1 unit of blood and supratherapeutic INR. Will obtain hepatitis C panel however no further workup indicated at this time. LFTs are trending down. Again likely acute shock liver secondary to hypoperfusion. No further workup indicated. Continue to trend LFTs Current Visit: Yes Status: Acute Code(s): R79.89 - OTHER SPECIFIED ABNORMAL FINDINGS OF BLOOD CHEMISTRY SNOMED Code(s): 378305903 (2) Fracture of tibia with fibula, left, closed Current Visit: Yes Status: Acute Code(s): S82.202A - UNSP FRACTURE OF SHAFT OF LEFT TIBIA, INIT FOR CLOS FX; S82.402A - UNSP FRACTURE OF SHAFT OF LEFT FIBULA, INIT FOR CLOS FX SNOMED Code(s): 644320510 (3) A-fib Current Visit: No Status: Acute Code(s): I48.91 - UNSPECIFIED ATRIAL F IBRILLATION SNOMED Code(s): 76387276 (4) ESRD (end stage renal disease) on dialysis Current Visit: No Status: Acute Code(s): N18.6 - END STAGE RENAL DISEASE; Z99.2 - DEPENDENCE ON RENAL DIALYSIS SNOMED Code(s): 307828358 (5) Supratherapeutic INR Current Visit: No Status: Acute Code(s): R79.1 - ABNORMAL COAGULATION PROFILE SNOMED Code(s): 028334160 Plan: 1. Continue symptomatic and supportive care 2. Hepatitis panel nonreactive 3. Repeat CMP 4. Gallbladder ultrasound reviewed 5. Continue with recommendations and surgery by orthopedics 6. No further GI workup indicated at this time, continue to trend LFTs Thank you for this consultation, we will continue to follow. Dr. Linda Arredondo I agree with the dictator's note, documented as a scribe by Radha Lind.
[2024-05-06] MEDS: WARFARIN 3 MG TAB PO ONE (17:31)
[2024-05-07 08:10] LABS: INR 1.9 (<1.2); Prothrombin Time 18.8 sec (10.0-12.5)
[2024-05-07] MEDS: polyethylene glycoL 3350 17 GM POWD.PACK PO SCH (09:56)
[2024-05-07 11:11] LABS: ALT 747 U/L (10-49); AST 478 U/L (14-35); Albumin 3.9 g/dL (3.8-4.9); Albumin/Globulin Ratio 1.62 Ratio (1.60-3.17); Alkaline Phosphatase 113 U/L (41-126); Blood Urea Nitrogen 47.3 mg/dL (9.0-27.0); Calcium 9.3 mg/dL (8.7-10.3); Carbon Dioxide 24.3 mmol/L (21.6-31.8); Chloride 94 mmol/L (96-109); Globulin 2.4 g/dL (1.6-3.3); Glucose 106 mg/dL (70-110); Potassium 4.5 mmol/L (3.5-5.5); Sodium 139 mmol/L (135-145); Total Bilirubin 1.3 mg/dL (0.3-1.2); Total Protein 6.3 g/dL (6.2-8.2)
--- NOTE | 2024-05-07 12:20 | P.PN ---
Subjective Progress Note Date: 05/07/24 Principal diagnosis: Status post left tibia IM nail This is a 79 year-old male post left tibia IM nail. This is post-op day 2. The patient was evaluated in the recliner at the bedside today. The patient is alert but confused. The patient's is at the bedside. The patient has been up with physical therapy. Objective - Vital Signs Vital signs: Vital Signs Temp 98.2 F 05/07/24 07:08 Pulse 70 05/07/24 07:08 Resp 20 05/07/24 07:08 BP 150/70 05/07/24 07:08 Pulse Ox 95 05/07/24 07:08 FiO2 Intake & Output 05/06/24 05/07/24 05/07/24 18:59 06:59 18:59 Intake Total 400 Output Total 2400 0 Balance -2000 0 Intake: Hemodialysis 400 Output: Urine 0 Hemodialysis 1400 Hemodialysis Net Amount 1000 Other: # Voids 0 - Exam The patient does not appear in acute distress. Alert and orientated x1. Dressing and splint has some shadowing on the medial aspect of the ankle which remains unchanged. Able to wiggle his toes without difficulty. Toes are warm to touch. Sensation and circulatory status is intact. - Labs CBC & Chem 7: 05/05/24 04:52 05/07/24 07:00 Labs: Abnormal Lab Results - Last 24 Hours (Table) 05/07/24 05/07/24 Range/Units 07:00 07:00 PT 18.8 H (10.0-12.5) sec INR 1.9 H (<1.2) Chloride 94 L (96-109) mmol/L Anion Gap 20.70 H (4.00-12.00) mmol/L BUN 47.3 H (9.0-27.0) mg/dL Creatinine 4.3 H (0.6-1.5) mg/dL Est GFR (CKD-EPI) 13 L (>=60) BUN/Creatinine Ratio 11.00 L (12.00-20.00) Ratio Total Bilirubin 1.3 H (0.3-1.2) mg/dL AST 478 H (14-35) U/L ALT 747 H (10-49) U/L Assessment and Plan (1) Fracture of tibia with fibula, left, closed Current Visit: Yes Status: Acute Code(s): S82.202A - UNSP FRACTURE OF SHAFT OF LEFT TIBIA, INIT FOR CLOS FX; S82.402A - UNSP FRACTURE OF SHAFT OF LEFT FIBULA, INIT FOR CLOS FX SNOMED Code(s): 858218310 (2) CHF (congestive heart failure) Current Visit: No Status: Acute Code(s): I50.9 - HEART FAILURE, UNSPECIFIED SNOMED Code(s): 48400561 (3) End stage renal disease Current Visit: No Status: Acute Code(s): N18.6 - END STAGE RENAL DISEASE SNOMED Code(s): 98908152 Plan: 1. Continue pain control 2. Coumadin per internal medicine. 3. Continue physical therapy and ambulation, non-weightbearing to the left leg. 4. Anticipate discharge skilled rehab likely tomorrow after dialysis. Patient had a period of confusion with his hip fracture last year. We will continue attempting to mobilize. NWB, maintain splint, pain control.
--- NOTE | 2024-05-07 15:57 | P.PN ---
Subjective Progress Note Date: 05/07/24 Principal diagnosis: Elevated LFTs This an 79-year-old male who had presented to the emergency department 3 days ago after sustaining a fall and complaining of leg pain. He was found to have left fracture of tibia and fibula and admitted and plan for surgery today. He has multiple comorbidities including end-stage renal disease on hemodialysis, atrial fibrillation with permanent pacemaker, and coronary artery disease. Yesterday he was noted to have a potassium of 7.1 and underwent hemodialysis, so surgery was canceled. He had repeat labs today which included CMP with noted elevated LFTs. Gastroenterology was consulted for elevated LFTs. On admission his LFTs were normal, his is at the bedside and provides most of the history. Denies any history of alcohol dependence, liver disease, or new medications. Does not appear that patient was started on any new medications here in the hospital. Patient seems somewhat confused and not answering any questions other than he states he has abdominal pain. states he has not had a bowel movement since he came in on Saturday. Today's labs WBC 12.2 hemoglobin 8.5 platelet count 171,000 INR 2.0 sodium 134 potassium 5.4 BUN 56 creatinine 4.3 total bilirubin 1.4 AST 1193 ALT 1313 alkaline phosphatase 97. 05/06/2024 Patient seen and examined today as a follow-up. Yesterday he underwent surgery of the left tib-fib fracture. Today he is currently getting hemodialysis. He denies any abdominal pain, nausea or vomiting. LFTs have trended down today total bilirubin 1.0 AST 662 ALT 1121 alkaline phosphatase 110 hepatitis panel nonreactive. 05/07/2024 Patient seen and examined today as a follow-up. He was sitting up in the bedside chair. He is without any complaints at this time other than pain in his left lower extremity. He denies any abdominal pain, nausea or vomiting. LFTs continue to trend down. Total bilirubin 1.3 AST 478 ALT 747 alkaline phosphatase 113. Hepatitis panel was nonreactive. Objective - Vital Signs Vital signs: Vital Signs Temp 98.2 F 05/07/24 07:08 Pulse 70 05/07/24 07:08 Resp 20 05/07/24 07:08 BP 150/70 05/07/24 07:08 Pulse Ox 95 05/07/24 07:08 FiO2 Intake & Output 0705/07/24 05/07/24 18:59 06:59 18:59 Intake Total 400 Output Total 2400 0 Balance -2000 0 Intake: Hemodialysis 400 Output: Urine 0 Hemodialysis 1400 Hemodialysis Net Amount 1000 Other: # Voids 0 - Exam General appearance: The patient is alert, oriented, appears in no acute distress. HET: Head is normocephalic and atraumatic. Conjunctiva pink. Sclera anicteric. Neck: Supple without lymphadenopathy. Abdomen: Soft, nontender, nondistended with bowel sounds. No guarding or rigidity. Extremities: Left leg in Eric wrap. Skin: No rashes, no jaundice Neurological: No focal deficits. Alert and oriented. - Labs CBC & Chem 7: 05/05/24 04:52 05/07/24 07:00 Labs: Abnormal Lab Results - Last 24 Hours (Table) 05/06/24 05/07/24 Range/Units 06:59 07:00 PT 18.8 H (10.0-12.5) sec INR 1.9 H (<1.2) Potassium 5.7 H (3.5-5.5) mmol/L Chloride 94 L (96-109) mmol/L Anion Gap 19.60 H (4.00-12.00) mmol/L BUN 81.2 H (9.0-27.0) mg/dL Creatinine 6.2 H (0.6-1.5) mg/dL Est GFR (CKD-EPI) 9 L (>=60) Glucose 115 H (70-110) mg/dL AST 662 H (14-35) U/L ALT 1121 H (10-49) U/L Assessment and Plan (1) Elevated LFTs Narrative/Plan: 79-year-old male presents after sustaining a fall and left tib-fib fracture who is supposed to undergo surgery today. He has multiple comorbidities including end-stage renal disease on hemodialysis underwent dialysis yesterday. Presenting with normal LFTs with repeat labs today showing acute significant elevation in his LFTs. Total bilirubin mildly elevated at 1.4, AST 1193 ALT 1313 alkaline phosphatase 97. He did have a gallbladder ultrasound that does report a gallstone at the neck of the gallbladder with no CBD dilation and labs are not in a cholestatic pattern and likely more of a shock liver secondary to underlying comorbidities. However, need to consider possibility of underlying liver disease as noted on ultrasound possibly secondary to nonalcoholic fatty liver. Possible hypoperfusion during hemodialysis and patient noted to be anemic status post 1 unit of blood and supratherapeutic INR. Will obtain hepatitis C panel however no further workup indicated at this time. LFTs are trending down. Again likely acute shock liver secondary to hypoperfusion. No further workup indicated. Continue to trend LFTs Current Visit: Yes Status: Acute Code(s): R79.89 - OTHER SPECIFIED ABNORMAL FINDINGS OF BLOOD CHEMISTRY SNOMED Code(s): 731300876 (2) Fracture of tibia with fibula, left, closed Current Visit: Yes Status: Acute Code(s): S82.202A - UNSP FRACTURE OF SHAFT OF LEFT TIBIA, INIT FOR CLOS FX; S82.402A - UNSP FRACTURE OF SHAFT OF LEFT FIBULA, INIT FOR CLOS FX SNOMED Code(s): 120846160 (3) A-fib Current Visit: No Status: Acute Code(s): I48.91 - UNSPECIFIED ATRIAL FIBRILLATION SNOMED Code(s): 52532057 (4) ESRD (end stage renal disease) on dialysis Current Visit: No Status: Acute Code(s): N18.6 - END STAGE RENAL DISEASE; Z99.2 - DEPENDENCE ON RENAL DIALYSIS SNOMED Code(s): 021318473 (5) Supratherapeutic INR Current Visit: No Status: Acute Code(s): R79.1 - ABNORMAL COAGULATION PROFILE SNOMED Code(s): 523526537 Plan: 1. Continue symptomatic and supportive care 2. Hepatitis panel nonreactive 3. Repeat CMP 4. Gallbladder ultrasound reviewed 5. No further GI workup indicated at this time, continue to trend LFTs Thank you for this consultation, we will continue to follow. Dr. Linda Arredondo I agree with the dictator's note, documented as a scribe by Radha Lind.
--- NOTE | 2024-05-07 16:24 | P.PN ---
Subjective patient is seen for follow-up for end-stage renal disease. status post left tibia IM nail on 05/05/2024. No significant complaints today. Objective - Vital Signs Vital signs: Vital Signs Temp 98.4 F 05/07/24 14:03 Pulse 64 05/07/24 14:03 Resp 20 05/07/24 14:03 BP 129/60 05/07/24 14:03 Pulse Ox 96 05/07/24 14:03 FiO2 Intake & Output 05/06/24 05/07/24 05/07/24 18:59 06:59 18:59 Intake Total 400 0 Output Total 2400 0 Balance -2000 0 0 Intake: Oral 0 Hemodialysis 400 Output: Urine 0 Hemodialysis 1400 Hemodialysis Net Amount 1000 Other: # Voids 0 - Exam patient is awake, comfortable, no acute distress. 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 End-stage renal disease on hemodialysis on Saturday schedule via left arm AV fistula 2. Status post fall with left rib/fib fracture , status post IM nailing on 05/05/2024 3. Coagulopathy from Coumadin with INR of 5.3 on admission, status post vitamin K 4. CK D mineral bone disorder 5. Chronic A. fib 6. Cholelithiasis at the gallbladder neck, GI on consult Plan: hemodialysis on Saturday schedule
--- NOTE | 2024-05-07 16:48 | P.PN ---
Subjective Progress Note Date: 05/07/24 This is a 79-year-old gentleman admitted with comminuted fractures of the left distal tibia and fibula status post fall, syncope, end-stage renal disease, anemia, hypercoagulopathy, atrial fibrillation, valvular heart disease, permanent pacemaker, CAD and multiple other medical issues. Anticoagulation rem ains on hold, received vitamin K 5 mg yesterday for INR of 3.2, 3.2 decreased today to 2.69. Scheduled for hemodialysis today, potassium 7.1, repeat level ordered post hemodialysis as per nephrology, hemoglobin increased to 7.9, platelets 173. Afebrile, WBC 13.1. Reports pain of the affected extremity. 05/05/2021 hemodialysis yesterday, n.p.o. as of midnight , IV fluids initiated this morning .positive pain. Appears fatigued, mildly disoriented. Has not recently has not recently been medicated for pain. Bicarb 27. Tmax 101.1, currently afebrile. Increased LFTs since admission, positive abdominal pain greatest - upper quadrants. WBC 12.2, hemoglobin 8.5, platelets 171, sodium 134, potassium 5.4, BUN 56, creatinine 4.32. T. bili 1.4, AST 1193, ALT 1313, alk phos 97. vague historian. received additional vitamin K yesterday with INR currently down to 2. Surgery pending. Denies chest pain, palpitations or shortness of breath. Maintaining O2 sats in the low 90s on 2 L nasal cannula. 05/06/2024 status post left tibia IM nail, postop day #1. Tolerated procedure well. Fatigued, sleepy, disoriented. Denies pain at rest. Denies chest pain, palpitations or shortness of breath. Maintaining O2 sats in the high 90s on 3 L nasal cannula. Elevated LFTs yesterday, ultrasound of gallbladder reported cholelithiasis with stone at the gallbladder neck, right pleural effusion, mild hepatic steatosis. F/U labs pending. Hemodialysis today. 05/07/2024 significant clinical improvement. Mild confusion persists, word searching. sitting up in bed eating breakfast. Denies nausea vomiting. Denies abdominal pain. Positive surgical pain. Hepatitis panel nonreactive, LFTs trending down. INR 1.9, Coumadin resumed. Objective - Vital Signs Vital signs: Vital Signs Temp 98.4 F 05/07/24 14:03 Pulse 64 05/07/24 16:21 Resp 20 05/07/24 14:03 BP 129/60 05/07/24 14:03 Pulse Ox 96 05/07/24 14:03 FiO2 Intake & Output 05/06/24 05/07/24 05/07/24 18:59 06:59 18:59 Intake Total 400 0 Output Total 2400 0 Balance -2000 0 0 Intake: Oral 0 Hemodialysis 400 Output: Urine 0 Hemodialysis 1400 Hemodialysis Net Amount 1000 Other: # Voids 0 - Exam PHYSICAL EXAM: VITAL SIGNS: [As above] GENERAL: alert and oriented x 1, word searching ,pleasantly confused, sitting up in bed, eating breakfast, no acute distress. HEENT: Normocephalic, conjunctivae normal. eyes normal. Sclera anicteric. NECK: Supple, no JVD. CARDIOVASCULAR: S1, S2 regular. Systolic murmur RESPIRATION: Unlabored, equal air entry ,breath sounds diminished with fine right basilar crackles. ABDOMEN: Soft, nondistended, nontender, no guarding, no rigidity. +BS LEGS: Left lower extremity Eric wrapped with outlined prior shadowing, toes warm- moving freely, positive sensation. NERVOUS SYSTEM: Cranial N 2-12 grossly normal. No focal deficits. Strength and sensation grossly intact. Skin: Warm and dry, no rash - Labs CBC & Chem 7: 05/05/24 04:52 05/07/24 07:00 Labs: Abnormal Lab Results - Last 24 Hours (Table) 05/07/24 05/07/24 Range/Units 07:00 07:00 PT 18.8 H (10.0-12.5) sec INR 1.9 H (<1.2) Chloride 94 L (96-109) mmol/L Anion Gap 20.70 H (4.00-12.00) mmol/L BUN 47.3 H (9.0-27.0) mg/dL Creatinine 4.3 H (0.6-1.5) mg/dL Est GFR (CKD-EPI) 13 L (>=60) BUN/Creatinine Ratio 11.00 L (12.00-20.00) Ratio Total Bilirubin 1.3 H (0.3-1.2) mg/dL AST 478 H (14-35) U/L ALT 747 H (10-49) U/L Assessment and Plan Assessment: Fracture of tibia with fibula, left, closed, status post left tibia IM nail. Acute toxic, metabolic, encephalopathy, medication, anesthesia related Coumadin coagulopathy, supratherapeutic, status post vitamin K Acute on chronic anemia secondary to Coumadin coagulopathy, status post 1 unit packed RBCs Acute hypoxic respiratory failure secondary to all the above Elevated LFTs since admission, possibly related to hypoperfusion during HD as per GI, improving Cholelithiasis with stone at the gallbladder neck reported per ultrasound Mild hepatic steatosis Chronic diastolic CHF End-stage renal disease on hemodialysis, history of cardiorenal syndrome. HD Saturday Chronic atrial fibrillation History of pacemaker implantation, complete heart block CAD Severe pulmonary hypertension Moderate to severe mitral regurgitation Moderate to severe tricuspid regurgitation Multivalvular heart disease including mild aortic stenosis Plan: Continue on current medication regimen ,monitoring and symptomatic treatment. Coumadin per pharmacy dosing ordered. Pain management. PT. continue aggressive pulmonary toileting with nebulized bronchodilators, incentive spirometer reinforced. Hemodialysis as per nephrology. The impression and plan of care has been dictated as directed. : I performed a history and examination of this patient, discussed the same with the dictator. I agree with the dictator's note ,documented as a scribe. Any additional findings or plans will be noted.
[2024-05-07] MEDS: WARFARIN 3 MG TAB PO ONE (17:14)
[2024-05-07] MEDS: FAMOTIDINE 20 MG TAB PO SCH (20:56)
[2024-05-08] MEDS: diazePAM 2 MG TAB PO PRN (02:38)
[2024-05-08 06:54] LABS: INR 2.9 (<1.2); Prothrombin Time 28.7 sec (10.0-12.5)
[2024-05-08 08:55] LABS: ALT 334 U/L (10-49); AST 177 U/L (14-35); Albumin 3.8 g/dL (3.8-4.9); Albumin/Globulin Ratio 1.58 Ratio (1.60-3.17); Alkaline Phosphatase 105 U/L (41-126); BUN/Creat Ratio 11.62 Ratio (12.00-20.00); Blood Urea Nitrogen 65.1 mg/dL (9.0-27.0); Calcium 9.6 mg/dL (8.7-10.3); Carbon Dioxide 26.6 mmol/L (21.6-31.8); Chloride 92 mmol/L (96-109); Globulin 2.4 g/dL (1.6-3.3); Glucose 120 mg/dL (70-110); Potassium 3.9 mmol/L (3.5-5.5); Sodium 137 mmol/L (135-145); Total Protein 6.2 g/dL (6.2-8.2)
--- NOTE | 2024-05-08 09:12 | P.PN ---
Subjective Progress Note Date: 05/08/24 Principal diagnosis: Status post left tibia IM nail This is a 79 year-old male post left tibia IM nail. This is post-op day 3. The patient was evaluated at the bedside today. The patient is sleepy and disorientated this morning. The patient has been up with physical therapy. We are awaiting skilled rehab placement. Objective - Vital Signs Vital signs: Vital Signs Temp 97.5 F L 05/08/24 07:08 Pulse 64 05/08/24 07:08 Resp 17 05/08/24 07:08 BP 148/70 05/08/24 07:08 Pulse Ox 90 L 05/08/24 07:08 FiO2 Intake & Output 05/07/24 05/08/24 05/08/24 18:59 06:59 18:59 Intake Total 0 Balance 0 Intake: Oral 0 Other: # Voids 0 0 - Exam The patient does not appear in acute distress. Alert and orientated x1. Dressi ng and splint has some shadowing on the medial aspect of the ankle which remains unchanged. Able to wiggle his toes without difficulty. Toes are warm to touch. Sensation and circulatory status is intact. - Labs CBC & Chem 7: 05/08/24 09:23 05/08/24 05:24 Labs: Abnormal Lab Results - Last 24 Hours (Table) 05/07/24 05/08/24 05/08/24 Range/Units 07:00 05:24 05:24 PT 28.7 H (10.0-12.5) sec INR 2.9 H (<1.2) Chloride 94 L 92 L (96-109) mmol/L Anion Gap 20.70 H 18.40 H (4.00-12.00) mmol/L BUN 47.3 H 65.1 H (9.0-27.0) mg/dL Creatinine 4.3 H 5.6 H (0.6-1.5) mg/dL Est GFR (CKD-EPI) 13 L 10 L (>=60) BUN/Creatinine Ratio 11.00 L 11.62 L (12.00-20.00) Ratio Glucose 120 H (70-110) mg/dL Total Bilirubin 1.3 H (0.3-1.2) mg/dL AST 478 H 177 H (14-35) U/L ALT 747 H 334 H (10-49) U/L Albumin/Globulin Ratio 1.58 L (1.60-3.17) Ratio Assessment and Plan (1) Fracture of tibia with fibula, left, closed Current Visit: Yes Status: Acute Code(s): S82.202A - UNSP FRACTURE OF SHAFT OF LEFT TIBIA, INIT FOR CLOS FX; S82.402A - UNSP FRACTURE OF SHAFT OF LEFT FIBULA, INIT FOR CLOS FX SNOMED Code(s): 337005176 (2) CHF (congestive heart failure) Current Visit: No Status: Acute Code(s): I50.9 - HEART FAILURE, UNSPECIFIED SNOMED Code(s): 16340111 (3) End stage renal disease Current Visit: No Status: Acute Code(s): N18.6 - END STAGE RENAL DISEASE SNOMED Code(s): 05262050 Plan: 1. Continue pain control 2. Coumadin per internal medicine. 3. Continue physical therapy and ambulation, non-weightbearing to the left leg. 4. Anticipate discharge skilled rehab pending insurance auth.
[2024-05-08 09:58] LABS: Anisocytosis Slight; HCT 24.4 % (39.0-53.0); HGB 7.7 gm/dL (13.0-17.5); Hypochromasia Moderate; MCHC 31.4 g/dL (31.0-37.0); MCV 92.4 fL (80.0-100.0); Mean Platelet Volume 8.2; Platelet Count 168 k/uL (150-450); RBC 2.65 m/uL (4.30-5.90); RDW 18.2 % (11.5-15.5); WBC 6.7 k/uL (3.8-10.6)
[2024-05-08] MEDS ORDERED: carvediloL 3.125 MG TAB PO SCH (11:00)
--- NOTE | 2024-05-08 12:42 | P.PN ---
Subjective patient is seen for follow-up for end-stage renal disease. status post left tibia IM nail on 05/05/2024. No significant complaints today. Patient is seen on dialysis. He is tolerating his treatment well. Objective - Vital Signs Vital signs: Vital Signs Temp 97.5 F L 05/08/24 07:08 Pulse 64 05/08/24 07:08 Resp 17 05/08/24 07:08 BP 148/70 05/08/24 07:08 Pulse Ox 90 L 05/08/24 07:08 FiO2 Intake & Output 05/07/24 05/08/24 05/08/24 18:59 06:59 18:59 Intake Total 0 Balance 0 Intake: Oral 0 Other: # Voids 0 0 - Exam patient is awake, comfortable, no acute distress. 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 - Labs CBC & Chem 7: 05/08/24 09:23 05/08/24 05:24 Labs: Abnormal Lab Results - Last 24 Hours (Table) 05/08/24 05/08/24 05/08/24 Range/Units 05:24 05:24 09:23 RBC 2.65 L (4.30-5.90) m/uL Hgb 7.7 L (13.0-17.5) gm/dL Hct 24.4 L (39.0-53.0) % RDW 18.2 H (11.5-15.5) % PT 28.7 H (10.0-12.5) sec INR 2.9 H (<1.2) Chloride 92 L (96-109) mmol/L Anion Gap 18.40 H (4.00-12.00) mmol/L BUN 65.1 H (9.0-27.0) mg/dL Creatinine 5.6 H (0.6-1.5) mg/dL Est GFR (CKD-EPI) 10 L (>=60) BUN/Creatinine Ratio 11.62 L (12.00-20.00) Ratio Glucose 120 H (70-110) mg/dL AST 177 H (14-35) U/L ALT 334 H (10-49) U/L Albumin/Globulin Ratio 1.58 L (1.60-3.17) Ratio Assessment and Plan Assessment: 1. End-stage renal disease on hemodialysis on Saturday schedule via left arm AV fistula 2. Status post fall with left tib/fib fracture , status post IM nailing on 05/05/2024 3. Coagulopathy from Coumadin with INR of 5.3 on admission, status post vitamin K 4. CK D mineral bone disorder 5. Chronic A. fib 6. Cholelithiasis at the gallbladder neck, GI on consult. Tolerating oral intake. Plan: hemodialysis on Saturday schedule. Resume Coreg as blood pressure is elevated. DC IV fluids.
[2024-05-08 13:26] VITALS: BMI 26.8
[2024-05-08] MEDS: carvediloL 3.125 MG TAB PO SCH (13:26)
--- NOTE | 2024-05-08 15:45 | P.PN ---
Subjective Progress Note Date: 05/08/24 This is a 79-year-old gentleman admitted with comminuted fractures of the left distal tibia and fibula status post fall, syncope, end-stage renal disease, anemia, hypercoagulopathy, atrial fibrillation, valvular heart disease, permanent pacemaker, CAD and multiple other medical issues. Anticoagulation rem ains on hold, received vitamin K 5 mg yesterday for INR of 3.2, 3.2 decreased today to 2.69. Scheduled for hemodialysis today, potassium 7.1, repeat level ordered post hemodialysis as per nephrology, hemoglobin increased to 7.9, platelets 173. Afebrile, WBC 13.1. Reports pain of the affected extremity. 05/05/2021 hemodialysis yesterday, n.p.o. as of midnight , IV fluids initiated this morning .positive pain. Appears fatigued, mildly disoriented. Has not recently has not recently been medicated for pain. Bicarb 27. Tmax 101.1, currently afebrile. Increased LFTs since admission, positive abdominal pain greatest - upper quadrants. WBC 12.2, hemoglobin 8.5, platelets 171, sodium 134, potassium 5.4, BUN 56, creatinine 4.32. T. bili 1.4, AST 1193, ALT 1313, alk phos 97. vague historian. received additional vitamin K yesterday with INR currently down to 2. Surgery pending. Denies chest pain, palpitations or shortness of breath. Maintaining O2 sats in the low 90s on 2 L nasal cannula. 05/06/2024 status post left tibia IM nail, postop day #1. Tolerated procedure well. Fatigued, sleepy, disoriented. Denies pain at rest. Denies chest pain, palpitations or shortness of breath. Maintaining O2 sats in the high 90s on 3 L nasal cannula. Elevated LFTs yesterday, ultrasound of gallbladder reported cholelithiasis with stone at the gallbladder neck, right pleural effusion, mild hepatic steatosis. F/U labs pending. Hemodialysis today. 05/07/2024 significant clinical improvement. Mild confusion persists, word searching. sitting up in bed eating breakfast. Denies nausea vomiting. Denies abdominal pain. Positive surgical pain. Hepatitis panel nonreactive, LFTs trending down. INR 1.9, Coumadin resumed. 05/08/2024 O2 weaned off, maintaining O2 sats in the low 90s on room air. Mild pleasant confusion, alert to person, currently. Hemoglobin 7.7, platelets 168. LFTs continue to improve. Hemodialysis today. Coumadin per pharmacy dosing, INR 2.9. Denies chest pain, palpitations or shortness of breath. Reports surgical tenderness to touch. passing flatus. Objective - Vital Signs Vital signs: Vital Signs Temp 97.5 F L 05/08/24 07:08 Pulse 64 05/08/24 07:08 Resp 17 05/08/24 07:08 BP 148/70 05/08/24 07:08 Pulse Ox 90 L 05/08/24 07:08 FiO2 Intake & Output 05/07/24 05/08/24 05/08/24 18:59 06:59 18:59 Intake Total 0 Balance 0 Intake: Oral 0 Other: # Voids 0 0 - Exam PHYSICAL EXAM: VITAL SIGNS: [As above] GENERAL: alert and oriented x 1, pleasantly confused, drowsy, no acute distress. HEENT: Normocephalic, conjunctivae normal. eyes normal. Sclera anicteric. NECK: Supple, no JVD. CARDIOVASCULAR: S1, S2 regular. Systolic murmur RESPIRATION: Unlabored, equal air entry ,breath sounds diminished. ABDOMEN: Soft, nondistended, nontender, no guarding, no rigidity. +BS LEGS: Left lower extremity Eric wrapped with unchanged outlined prior shadowing, toes warm- moving freely, positive sensation. NERVOUS SYSTEM: Cranial N 2-12 grossly normal. No focal deficits. Strength and sensation grossly intact. Skin: Warm and dry, no rash - Labs CBC & Chem 7: 05/08/24 09:23 05/08/24 05:24 Labs: Abnormal Lab Results - Last 24 Hours (Table) 05/07/24 05/08/24 Range/Units 07:00 05:24 PT 28.7 H (10.0-12.5) sec INR 2.9 H (<1.2) Chloride 94 L (96-109) mmol/L Anion Gap 20.70 H (4.00-12.00) mmol/L BUN 47.3 H (9.0-27.0) mg/dL Creatinine 4.3 H (0.6-1.5) mg/dL Est GFR (CKD-EPI) 13 L (>=60) BUN/Creatinine Ratio 11.00 L (12.00-20.00) Ratio Total Bilirubin 1.3 H (0.3-1.2) mg/dL AST 478 H (14-35) U/L ALT 747 H (10-49) U/L Assessment and Plan Assessment: Fracture of tibia with fibula, left, closed, status post left tibia IM nail. Acute toxic, metabolic, encephalopathy, medication, anesthesia related and secondary to shocked liver. Coumadin coagulopathy, supratherapeutic, status post vitamin K Acute on chronic anemia secondary to Coumadin coagulopathy, status post 1 unit packed RBCs Acute hypoxic respiratory failure secondary to all the above, currently resolved. Elevated LFTs since admission, possibly related to hypoperfusion during HD as per GI, improving Cholelithiasis with stone at the gallbladder neck reported per ultrasound Mild hepatic steatosis Chronic diastolic CHF End-stage renal disease on hemodialysis, history of cardiorenal syndrome. HD Saturday Chronic atrial fibrillation History of pacemaker implantation, complete heart block CAD Severe pulmonary hypertension Moderate to severe mitral regurgitation Moderate to severe tricuspid regurgitation Multivalvular heart disease including mild aortic stenosis Plan: Continue on current medication regimen ,monitoring and symptomatic treatment. Hemodialysis as per nephrology.Aggressive pulmonary toileting with nebulized bronchodilators, incentive spirometer reinforced. Frequent reorientation, delirium precautions, patient to be up in chair-able to look out window-blinds up. Coumadin per pharmacy dosing ordered. Pain management. PT. The impression and plan of care has been dictated as directed. : I performed a history and examination of this patient, discussed the same with the dictator. I agree with the dictator's note ,documented as a scribe. Any additional findings or plans will be noted.
--- NOTE | 2024-05-08 16:09 | P.PN ---
Subjective Progress Note Date: 05/08/24 Principal diagnosis: Elevated LFTs This an 79-year-old male who had presented to the emergency department 3 days ago after sustaining a fall and complaining of leg pain. He was found to have left fracture of tibia and fibula and admitted and plan for surgery today. He has multiple comorbidities including end-stage renal disease on hemodialysis, atrial fibrillation with permanent pacemaker, and coronary artery disease. Yesterday he was noted to have a potassium of 7.1 and underwent hemodialysis, so surgery was canceled. He had repeat labs today which included CMP with noted elevated LFTs. Gastroenterology was consulted for elevated LFTs. On admission his LFTs were normal, his is at the bedside and provides most of the history. Denies any history of alcohol dependence, liver disease, or new medications. Does not appear that patient was started on any new medications here in the hospital. Patient seems somewhat confused and not answering any questions other than he states he has abdominal pain. states he has not had a bowel movement since he came in on Saturday. Today's labs WBC 12.2 hemoglobin 8.5 platelet count 171,000 INR 2.0 sodium 134 potassium 5.4 BUN 56 creatinine 4.3 total bilirubin 1.4 AST 1193 ALT 1313 alkaline phosphatase 97. 05/06/2024 Patient seen and examined today as a follow-up. Yesterday he underwent surgery of the left tib-fib fracture. Today he is currently getting hemodialysis. He denies any abdominal pain, nausea or vomiting. LFTs have trended down today total bilirubin 1.0 AST 662 ALT 1121 alkaline phosphatase 110 hepatitis panel nonreactive. 05/07/2024 Patient seen and examined today as a follow-up. He was sitting up in the bedside chair. He is without any complaints at this time other than pain in his left lower extremity. He denies any abdominal pain, nausea or vomiting. LFTs continue to trend down. Total bilirubin 1.3 AST 478 ALT 747 alkaline phosphatase 113. Hepatitis panel was nonreactive. 224 Patient seen and examined today as a follow-up. No acute changes through the night. No labs available this morning. LFTs have been trending down. He denies any abdominal pain, nausea or vomiting. Objective - Vital Signs Vital signs: Vital Signs Temp 97.5 F L 05/08/24 07:08 Pulse 64 05/08/24 07:08 Resp 17 08/02/24 07:08 BP 148/70 05/08/24 07:08 Pulse Ox 90 L 05/08/24 07:08 FiO2 Intake & Output 05/07/24 05/08/24 05/08/24 18:59 06:59 18:59 Intake Total 0 Balance 0 Intake: Oral 0 Other: # Voids 0 0 - Exam General appearance: The patient is alert, oriented, appears in no acute distress. HET: Head is normocephalic and atraumatic. Conjunctiva pink. Sclera anicteric. Neck: Supple without lymphadenopathy. Abdomen: Soft, nontender, nondistended with bowel sounds. No guarding or rigidity. Extremities: Left leg in Eric wrap. Skin: No rashes, no jaundice Neurological: No focal deficits. Alert and oriented. - Labs CBC & Chem 7: 05/08/24 09:23 05/08/24 05:24 Labs: Abnormal Lab Results - Last 24 Hours (Table) 05/07/24 05/08/24 05/08/24 Range/Units 07:00 05:24 05:24 RBC (4.30-5.90) m/uL Hgb (13.0-17.5) gm/dL Hct (39.0-53.0) % RDW (11.5-15.5) % PT 28.7 H (10.0-12.5) sec INR 2.9 H (<1.2) Chloride 94 L 92 L (96-109) mmol/L Anion Gap 20.70 H 18.40 H (4.00-12.00) mmol/L BUN 47.3 H 65.1 H (9.0-27.0) mg/dL Creatinine 4.3 H 5.6 H (0.6-1.5) mg/dL Est GFR (CKD-EPI) 13 L 10 L (>=60) BUN/Creatinine Ratio 11.00 L 11.62 L (12.00-20.00) Ratio Glucose 120 H (70-110) mg/dL Total Bilirubin 1.3 H (0.3-1.2) mg/dL AST 478 H 177 H (14-35) U/L ALT 747 H 334 H (10-49) U/L Albumin/Globulin Ratio 1.58 L (1.60-3.17) Ratio 05/08/24 Range/Units 09:23 RBC 2.65 L (4.30-5.90) m/uL Hgb 7.7 L (13.0-17.5) gm/dL Hct 24.4 L (39.0-53.0) % RDW 18.2 H (11.5-15.5) % PT (10.0-12.5) sec INR (<1.2) Chloride (96-109) mmol/L Anion Gap (4.00-12.00) mmol/L BUN (9.0-27.0) mg/dL Creatinine (0.6-1.5) mg/dL Est GFR (CKD-EPI) (>=60) BUN/Creatinine Ratio (12.00-20.00) Ratio Glucose (70-110) mg/dL Total Bilirubin (0.3-1.2) mg/dL AST (14-35) U/L ALT (10-49) U/L Albumin/Globulin Ratio (1.60-3.17) Ratio Assessment and Plan (1) Elevated LFTs Narrative/Plan: 79-year-old male presents after sustaining a fall and left tib-fib fracture who is supposed to undergo surgery today. He has multiple comorbidities including end-stage renal disease on hemodialysis underwent dialysis yesterday. Presenting with normal LFTs with repeat labs today showing acute significant elevation in his LFTs. Total bilirubin mildly elevated at 1.4, AST 1193 ALT 1313 alkaline phosphatase 97. He did have a gallbladder ultrasound that does report a gallstone at the neck of the gallbladder with no CBD dilation and labs are not in a cholestatic pattern and likely more of a shock liver secondary to underlying comorbidities. However, need to consider possibility of underlying liver disease as noted on ultrasound possibly secondary to nonalcoholic fatty liver. Possible hypoperfusion during hemodialysis and patient noted to be anemic status post 1 unit of blood and supratherapeutic INR. Will obtain hepatitis C panel however no further workup indicated at this time. LFTs are trending down. Again likely acute shock liver secondary to hypoperfusion. No further workup indicated. Continue to trend LFTs Current Visit: Yes Status: Acute Code(s): R79.89 - OTHER SPECIFIED ABNORMAL FINDINGS OF BLOOD CHEMISTRY SNOMED Code(s): 158313895 (2) Fracture of tibia with fibula, left, closed Current Visit: Yes Status: Acute Code(s): S82.202A - UNSP FRACTURE OF SHAFT OF LEFT TIBIA, INIT FOR CLOS FX; S82.402A - UNSP FRACTURE OF SHAFT OF LEFT FIBULA, INIT FOR CLOS FX SNOMED Code(s): 695166792 (3) A-fib Current Visit: No Status: Acute Code(s): I48.91 - UNSPECIFIED ATRIAL FIBRILLATION SNOMED Code(s): 40979774 (4) ESRD (end stage renal disease) on dialysis Current Visit: No Status: Acute Code(s): N18.6 - END STAGE RENAL DISEASE; Z99.2 - DEPENDENCE ON RENAL DIALYSIS SNOMED Code(s): 255510617 (5) Supratherapeutic INR Current Visit: No Status: Acute Code(s): R79.1 - ABNORMAL COAGULATION PROFILE SNOMED Code(s): 560478187 Plan: 1. Continue symptomatic and supportive care 2. Hepatitis panel nonreactive 3. Gallbladder ultrasound reviewed 4. No further GI workup indicated Thank you for this consultation, we will sign off at this time. Dr. Linda Arredondo I agree with the dictator's note, documented as a scribe by Radha Lind.
[2024-05-08] MEDS: WARFARIN 0.5 MG TAB PO ONE (18:26)
--- NOTE | 2024-05-09 07:59 | P.PN ---
Subjective Progress Note Date: 05/09/24 Principal diagnosis: Status post left tibia IM nail This is a 79 year-old male post left tibia IM nail. This is post-op day 4. The patient was evaluated at the bedside today. The patient is more alert this morning. The patient has been up with physical therapy. We are awaiting skilled rehab placement. Objective - Vital Signs Vital signs: Vital Signs Temp 98.2 F 05/09/24 01:51 Pulse 65 05/09/24 01:51 Resp 18 05/09/24 01:51 BP 125/56 05/09/24 01:51 Pulse Ox 93 L 05/09/24 01:51 FiO2 Intake & Output 05/08/24 05/09/24 05/09/24 18:59 06:59 18:59 Intake Total 2400 Output Total 2400 Balance 0 Weight 84.822 kg Intake: Hemodialysis 2400 Output: Hemodialysis 400 Hemodialysis Net Amount 2000 Other: # Voids 0 0 - Exam The patient does not appear in acute distress. Alert and orientated x1. Dressing and splint has some shadowing on the medial aspect of the ankle which remains unchanged. Able to wiggle his toes without difficulty. Toes are warm to touch. Sensation and circulatory status is intact. - Labs CBC & Chem 7: 05/08/24 09:23 05/08/24 05:24 Labs: Abnormal Lab Results - Last 24 Hours (Table) 05/08/24 05/08/24 Range/Units 05:24 09:23 RBC 2.65 L (4.30-5.90) m/uL Hgb 7.7 L (13.0-17.5) gm/dL Hct 24.4 L (39.0-53.0) % RDW 18.2 H (11.5-15.5) % Chloride 92 L (96-109) mmol/L Anion Gap 18.40 H (4.00-12.00) mmol/L BUN 65.1 H (9.0-27.0) mg/dL Creatinine 5.6 H (0.6-1.5) mg/dL Est GFR (CKD-EPI) 10 L (>=60) BUN/Creatinine Ratio 11.62 L (12.00-20.00) Ratio Glucose 120 H (70-110) mg/dL AST 177 H (14-35) U/L ALT 334 H (10-49) U/L Albumin/Globulin Ratio 1.58 L (1.60-3.17) Ratio Assessment and Plan (1) Fracture of tibia with fibula, left, closed Current Visit: Yes Status: Acute Code(s): S82.202A - UNSP FRACTURE OF SHAFT OF LEFT TIBIA, INIT FOR CLOS FX; S82.402A - UNSP FRACTURE OF SHAFT OF LEFT FIBULA, INIT FOR CLOS FX SNOMED Code(s): 732845294 (2) CHF (congestive heart failure) Current Visit: No Status: Acute Code(s): I50.9 - HEART FAILURE, UNSPECIFIED SNOMED Code(s): 61888557 (3) End stage renal disease Current Visit: No Status: Acute Code(s): N18.6 - END STAGE RENAL DISEASE SNOMED Code(s): 89370020 Plan: 1. Continue pain control 2. Coumadin per internal medicine. 3. Continue physical therapy and ambulation, non-weightbearing to the left leg. 4. Anticipate discharge skilled rehab pending insurance auth.
[2024-05-09 11:39] LABS: Basophils # (A) 0.03 X 10*3/uL (0.00-0.10); Basophils % (A) 0.3 %; Eosinophils # (A) 0.21 X 10*3/uL (0.04-0.35); Eosinophils % (A) 2.3 %; HCT 26.6 % (39.6-50.0); HGB 8.3 g/dL (13.0-17.0); Lymphocytes # (A) 1.02 X 10*3/uL (0.90-5.00); Lymphocytes % (A) 11.2 %; MCHC 31.2 g/dL (32.0-37.0); Mean Platelet Volume 10.4 FL (9.5-12.2); Monocytes # (A) 1.22 X 10*3/uL (0.20-1.00); Monocytes % (A) 13.4 %; NRBC Per 100 WBC 0.02 X 10*3/uL (0.00-0.01); Neutrophils # (A) 6.61 X 10*3/uL (1.80-7.70); Neutrophils % (A) 72.5 %; Platelet Count 199 X 10*3/uL (140-440); RBC 2.86 X 10*6/uL (4.40-5.60); RDW 18.3 % (11.5-14.5); WBC 9.12 X 10*3/uL (4.50-10.00)
[2024-05-09 11:43] LABS: ALT 236 U/L (10-49); AST 90 U/L (14-35); Albumin 3.7 g/dL (3.8-4.9); Albumin/Globulin Ratio 1.48 Ratio (1.60-3.17); Alkaline Phosphatase 106 U/L (41-126); BUN/Creat Ratio 10.46 Ratio (12.00-20.00); Blood Urea Nitrogen 40.8 mg/dL (9.0-27.0); Calcium 9.8 mg/dL (8.7-10.3); Carbon Dioxide 28.2 mmol/L (21.6-31.8); Chloride 92 mmol/L (96-109); Globulin 2.5 g/dL (1.6-3.3); Glucose 110 mg/dL (70-110); Potassium 3.5 mmol/L (3.5-5.5); Sodium 136 mmol/L (135-145); Total Bilirubin 0.9 mg/dL (0.3-1.2); Total Protein 6.2 g/dL (6.2-8.2)
[2024-05-09 13:58] LABS: INR 2.93 sec (0.93-1.11); Prothrombin Time 29.5 sec (9.9-11.9)
[2024-05-09] MEDS: WARFARIN 0.5 MG TAB PO ONE (16:28)
--- NOTE | 2024-05-09 16:41 | P.PN ---
Subjective Progress Note Date: 05/09/24 79-year-old gentleman admitted with comminuted fractures of the left distal tibia and fibula status post fall, syncope, end-stage renal disease, anemia, hypercoagulopathy, atrial fibrillation, valvular heart disease, permanent pacemaker, CAD and multiple other medical issues. Anticoagulation remains on h old, received vitamin K 5 mg yesterday for INR of 3.2, 3.2 decreased today to 2.69. Scheduled for hemodialysis today, potassium 7.1, repeat level ordered post hemodialysis as per nephrology, hemoglobin increased to 7.9, platelets 173. Afebrile, WBC 13.1. Reports pain of the affected extremity. --hemodialysis yesterday, n.p.o. as of midnight , IV fluids initiated this morning .positive pain. Appears fatigued, mildly disoriented. Has not recently has not recently been medicated for pain. Bicarb 27. Tmax 101.1, currently afebrile. Increased LFTs since admission, positive abdominal pain greatest - upper quadrants. WBC 12.2, hemoglobin 8.5, platelets 171, sodium 134, potassium 5.4, BUN 56, creatinine 4.32. T. bili 1.4, AST 1193, ALT 1313, alk phos 97. vague historian. received additional vitamin K yesterday with INR currently down to 2. Surgery pending. Denies chest pain, palpitations or shortness of breath. Maintaining O2 sats in the low 90s on 2 L nasal cannula. --status post left tibia IM nail, postop day #1. Tolerated procedure well. Fatigued, sleepy, disoriented. Denies pain at rest. Denies chest pain, palpitations or shortness of breath. Maintaining O2 sats in the high 90s on 3 L nasal cannula. Elevated LFTs yesterday, ultrasound of gallbladder reported cholelithiasis with stone at the gallbladder neck, right pleural effusion, mild hepatic steatosis. F/U labs pending. Hemodialysis today. --significant clinical improvement. Mild confusion persists, word searching. sitting up in bed eating breakfast. Denies nausea vomiting. Denies abdominal pain. Positive surgical pain. Hepatitis panel nonreactive, LFTs trending down. INR 1.9, Coumadin resumed. --O2 weaned off, maintaining O2 sats in the low 90s on room air. Mild pleasant confusion, alert to person, currently. Hemoglobin 7.7, platelets 168. LFTs continue to improve. Hemodialysis today. Coumadin per pharmacy dosing, INR 2.9. Denies chest pain, palpitations or shortness of breath. Reports surgical tenderness to touch. passing flatus. 05/09/2024 Patient is seen and evaluated in room at bedside; no specific complaints reported Vital signs reviewed and stable with temperature of 98.9, pulse 69, respiration 18 and blood pressure 138/55 and O2 saturation 96% on 1 L Lab review shows WBC of 9.1, hemoglobin of 8.3 and platelet count of 199, PT 29.5 with INR of 2.9, sodium 136, potassium 3.5, BUNs/creatinine of 40/3.9, AST ALT continue to trend down at 90/236 Orthopedic surgery following post left tibia IM nail, POD #4; patient has been evaluated by PT and is recommended skilled rehab --Case management on board for discharge planning; patient will need autho rization for rehab -Continue with current schedule of hemodialysis Objective - Vital Signs Vital signs: Vital Signs Temp 98.3 F 05/09/24 07:01 Pulse 76 05/09/24 09:00 Resp 18 05/09/24 07:01 BP 127/62 05/09/24 07:01 Pulse Ox 95 05/09/24 08:53 FiO2 Intake & Output 05/08/24 05/09/24 05/09/24 18:59 06:59 18:59 Intake Total 2400 Output Total 2400 Balance 0 Weight 84.822 kg Intake: Hemodialysis 2400 Output: Hemodialysis 400 Hemodialysis Net Amount 2000 Other: # Voids 0 0 - Exam GENERAL: alert and oriented x 1, pleasantly confused, drowsy, no acute distress. HEENT: Normocephalic, conjunctivae normal. eyes normal. Sclera anicteric. NECK: Supple, no JVD. CARDIOVASCULAR: S1, S2 regular. Systolic murmur RESPIRATION: Unlabored, equal air entry ,breath sounds diminished. ABDOMEN: Soft, nondistended, nontender, no guarding, no rigidity. +BS LEGS: Left lower extremity Eric wrapped with unchanged outlined prior shadowing, toes warm- moving freely, positive sensation. NERVOUS SYSTEM: Cranial N 2-12 grossly normal. No focal deficits. Strength and sensation grossly intact. Skin: Warm and dry, no rash - Labs CBC & Chem 7: 05/09/24 06:19 05/09/24 06:19 Labs: Abnormal Lab Results - Last 24 Hours (Table) 05/09/24 05/09/24 Range/Units 06:19 06:19 RBC 2.86 L (4.40-5.60) X 10*6/uL Hgb 8.3 L (13.0-17.0) g/dL Hct 26.6 L (39.6-50.0) % MCHC 31.2 L (32.0-37.0) g/dL RDW 18.3 H (11.5-14.5) % Monocytes # 1.22 H (0.20-1.00) X 10*3/uL NRBC/100 WBC Diff 0.02 H (0.00-0.01) X 10*3/uL Chloride 92 L (96-109) mmol/L Anion Gap 15.80 H (4.00-12.00) mmol/L BUN 40.8 H (9.0-27.0) mg/dL Creatinine 3.9 H (0.6-1.5) mg/dL Est GFR (CKD-EPI) 15 L (>=60) BUN/Creatinine Ratio 10.46 L (12.00-20.00) Ratio AST 90 H (14-35) U/L ALT 236 H (10-49) U/L Albumin 3.7 L (3.8-4.9) g/dL Albumin/Globulin Ratio 1.48 L (1.60-3.17) Ratio Assessment and Plan Assessment: Fracture of tibia with fibula, left, closed, status post left tibia IM nail. Acute toxic, metabolic, encephalopathy, medication, anesthesia related and secondary to shocked liver. Coumadin coagulopathy, supratherapeutic, status post vitamin K Acute on chronic anemia secondary to Coumadin coagulopathy, status post 1 unit packed RBCs Acute hypoxic respiratory failure secondary to all the above, currently resolved. Elevated LFTs since admission, possibly related to hypoperfusion during HD as per GI, improving Cholelithiasis with stone at the gallbladder neck reported per ultrasound Mild hepatic steatosis Chronic diastolic CHF End-stage renal disease on hemodialysis, history of cardiorenal syndrome. HD Saturday Chronic atrial fibrillation History of pacemaker implantation, complete heart block CAD Severe pulmonary hypertension Moderate to severe mitral regurgitation Moderate to severe tricuspid regurgitation Multivalvular heart disease including mild aortic stenosis Plan: Continue on current medication regimen ,monitoring and symptomatic treatment. Hemodialysis as per nephrology.Aggressive pulmonary toileting with nebulized bronchodilators, incentive spirometer reinforced. Frequent reorientation, delirium precautions, patient to be up in chair-able to look out window-blinds up. Coumadin per pharmacy dosing ordered. Pain management. PT.
--- NOTE | 2024-05-09 17:40 | P.PN ---
Subjective patient is seen for follow-up for end-stage renal disease. status post left tibia IM nail on 05/05/2024 for tib-fib fracture status post fall. No significant complaints today. Tolerating oral intake. Objective - Vital Signs Vital signs: Vital Signs Temp 98.9 F 05/09/24 13:37 Pulse 82 05/09/24 15:35 Resp 18 05/09/24 13:37 BP 138/55 05/09/24 13:37 Pulse Ox 96 05/09/24 13:37 FiO2 Intake & Output 05/08/24 05/09/24 05/09/24 18:59 06:59 18:59 Intake Total 2400 Output Total 2400 Balance 0 Weight 84.822 kg Intake: Hemodialysis 2400 Output: Hemodialysis 400 Hemodialysis Net Amount 2000 Other: # Voids 0 0 - Exam patient is awake, comfortable, no acute distress. 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 - Labs CBC & Chem 7: 05/09/24 06:19 05/09/24 06:19 Labs: Abnormal Lab Results - Last 24 Hours (Table) 05/09/24 05/09/24 05/09/24 Range/Units 06:19 06:19 06:19 RBC 2.86 L (4.40-5.60) X 10*6/uL Hgb 8.3 L (13.0-17.0) g/dL Hct 26.6 L (39.6-50.0) % MCHC 31.2 L (32.0-37.0) g/dL RDW 18.3 H (11.5-14.5) % Monocytes # 1.22 H (0.20-1.00) X 10*3/uL NRBC/100 WBC Diff 0.02 H (0.00-0.01) X 10*3/uL PT 29.5 H (9.9-11.9) sec INR 2.93 H (0.93-1.11) sec Chloride 92 L (96-109) mmol/L Anion Gap 15.80 H (4.00-12.00) mmol/L BUN 40.8 H (9.0-27.0) mg/dL Creatinine 3.9 H (0.6-1.5) mg/dL Est GFR (CKD-EPI) 15 L (>=60) BUN/Creatinine Ratio 10.46 L (12.00-20.00) Ratio AST 90 H (14-35) U/L ALT 236 H (10-49) U/L Albumin 3.7 L (3.8-4.9) g/dL Albumin/Globulin Ratio 1.48 L (1.60-3.17) Ratio Assessment and Plan Assessment: 1. End-stage renal disease on hemodialysis on Saturday schedule via left arm AV fistula 2. Status post fall with left tib/fib fracture , status post IM nailing on 05/05/2024 3. Coagulopathy from Coumadin with INR of 5.3 on admission, status post vitamin K 4. CK D mineral bone disorder 5. Chronic A. fib 6. Cholelithiasis at the gallbladder neck, GI on consult. Liver enzymes are improving. Tolerating oral intake. Plan: hemodialysis on Saturday schedule. Resume Coreg as blood pressure is elevated. Encourage increased oral intake.
[2024-05-10 07:34] LABS: INR 2.3 (<1.2)
--- NOTE | 2024-05-10 11:21 | P.PN ---
Subjective Progress Note Date: 05/10/24 Principal diagnosis: Status post left tibia IM nail This is a 79 year-old male post left tibia IM nail. This is post-op day 5. The patient was evaluated at the bedside today. The patient is more alert this morning. The patient has been up with physical therapy. We are awaiting skilled rehab placement. Objective - Vital Signs Vital signs: Vital Signs Temp 97.8 F 05/10/24 07:19 Pulse 80 05/10/24 08:27 Resp 20 05/10/24 07:19 BP 133/54 05/10/24 07:19 Pulse Ox 93 L 05/10/24 08:18 FiO2 Intake & Output 05/09/24 05/10/24 05/10/24 18:59 06:59 18:59 Other: # Voids 1 # Bowel Movements 1 - Exam The patient does not appear in acute distress. Alert and orientated x1. Dressing and splint has some shadowing on the medial aspect of the ankle which remains unchanged. Able to wiggle his toes without difficulty. Toes are warm to touch. Sensation and circulatory status is intact. - Labs CBC & Chem 7: 05/09/24 06:19 05/09/24 06:19 Labs: Abnormal Lab Results - Last 24 Hours (Table) 05/09/24 05/09/24 05/09/24 Range/Units 06:19 06:19 06:19 RBC 2.86 L (4.40-5.60) X 10*6/uL Hgb 8.3 L (13.0-17.0) g/dL Hct 26.6 L (39.6-50.0) % MCHC 31.2 L (32.0-37.0) g/dL RDW 18.3 H (11.5-14.5) % Monocytes # 1.22 H (0.20-1.00) X 10*3/uL NRBC/100 WBC Diff 0.02 H (0.00-0.01) X 10*3/uL PT 29.5 H (9.9-11.9) sec INR 2.93 H (0.93-1.11) sec Chloride 92 L (96-109) mmol/L Anion Gap 15.80 H (4.00-12.00) mmol/L BUN 40.8 H (9.0-27.0) mg/dL Creatinine 3.9 H (0.6-1.5) mg/dL Est GFR (CKD-EPI) 15 L (>=60) BUN/Creatinine Ratio 10.46 L (12.00-20.00) Ratio AST 90 H (14-35) U/L ALT 236 H (10-49) U/L Albumin 3.7 L (3.8-4.9) g/dL Albumin/Globulin Ratio 1.48 L (1.60-3.17) Ratio // Range/Units 06:38 RBC (4.40-5.60) X 10*6/uL Hgb (13.0-17.0) g/dL Hct (39.6-50.0) % MCHC (32.0-37.0) g/dL RDW (11.5-14.5) % Monocytes # (0.20-1.00) X 10*3/uL NRBC/100 WBC Diff (0.00-0.01) X 10*3/uL PT 23.0 H (9.9-11.9) sec INR 2.3 H (0.93-1.11) sec Chloride (96-109) mmol/L Anion Gap (4.00-12.00) mmol/L BUN (9.0-27.0) mg/dL Creatinine (0.6-1.5) mg/dL Est GFR (CKD-EPI) (>=60) BUN/Creatinine Ratio (12.00-20.00) Ratio AST (14-35) U/L ALT (10-49) U/L Albumin (3.8-4.9) g/dL Albumin/Globulin Ratio (1.60-3.17) Ratio Assessment and Plan (1) Fracture of tibia with fibula, left, closed Current Visit: Yes Status: Acute Code(s): S82.202A - UNSP FRACTURE OF SHAFT OF LEFT TIBIA, INIT FOR CLOS FX; S82.402A - UNSP FRACTURE OF SHAFT OF LEFT FIBULA, INIT FOR CLOS FX SNOMED Code(s): 038096467 (2) CHF (congestive heart failure) Current Visit: No Status: Acute Code(s): I50.9 - HEART FAILURE, UNSPECIFIED SNOMED Code(s): 22244590 (3) End stage renal disease Current Visit: No Status: Acute Code(s): N18.6 - END STAGE RENAL DISEASE SNOMED Code(s): 65837075 Plan: 1. Continue pain control 2. Coumadin per internal medicine. 3. Continue physical therapy and ambulation, non-weightbearing to the left leg. 4. Anticipate discharge skilled rehab pending insurance auth.
[2024-05-10] MEDS: HYDROcodone/APAP 5-325MG 1 EACH TAB PO PRN ×2 (11:50→20:43)
--- NOTE | 2024-05-10 12:48 | P.PN ---
Subjective patient is seen for follow-up for end-stage renal disease. status post left tibia IM nail on 05/05/2024 for tib-fib fracture status post fall. No significant complaints today. Tolerating oral intake. Objective - Vital Signs Vital signs: Vital Signs Temp 97.8 F 05/10/24 07:19 Pulse 56 L 05/10/24 12:39 Resp 20 05/10/24 07:19 BP 133/54 05/10/24 07:19 Pulse Ox 93 L 05/10/24 08:18 FiO2 Intake & Output 05/09/24 05/10/24 05/10/24 18:59 06:59 18:59 Other: # Voids 1 # Bowel Movements 1 - Exam patient is awake, comfortable, no acute distress. 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 End-stage renal disease on hemodialysis on Saturday schedule via left arm AV fistula 2. Status post fall with left tib/fib fracture , status post IM nailing on 05/05/2024 3. Coagulopathy from Coumadin with INR of 5.3 on admission, status post vitamin K 4. CK D mineral bone disorder 5. Chronic A. fib 6. Cholelithiasis at the gallbladder neck, GI on consult. Liver enzymes are improving. Tolerating oral intake. Plan: hemodialysis on Saturday schedule. Resume Coreg as blood pressure is elevated. Encourage increased oral intake.
[2024-05-10 14:44] VITALS: RESP 18
[2024-05-10] MEDS ORDERED: ZINC OXIDE PASTE (Z-GUARD) 1 APPLIC TOPICAL PRN (16:42)
[2024-05-10] MEDS: WARFARIN 2 MG TAB PO ONE (17:10)
--- NOTE | 2024-05-10 18:20 | P.PN ---
Subjective Progress Note Date: 05/10/24 79-year-old gentleman admitted with comminuted fractures of the left distal tibia and fibula status post fall, syncope, end-stage renal disease, anemia, hypercoagulopathy, atrial fibrillation, valvular heart disease, permanent pacemaker, CAD and multiple other medical issues. Anticoagulation remains on h old, received vitamin K 5 mg yesterday for INR of 3.2, 3.2 decreased today to 2.69. Scheduled for hemodialysis today, potassium 7.1, repeat level ordered post hemodialysis as per nephrology, hemoglobin increased to 7.9, platelets 173. Afebrile, WBC 13.1. Reports pain of the affected extremity. --hemodialysis yesterday, n.p.o. as of midnight , IV fluids initiated this morning .positive pain. Appears fatigued, mildly disoriented. Has not recently has not recently been medicated for pain. Bicarb 27. Tmax 101.1, currently afebrile. Increased LFTs since admission, positive abdominal pain greatest - upper quadrants. WBC 12.2, hemoglobin 8.5, platelets 171, sodium 134, potassium 5.4, BUN 56, creatinine 4.32. T. bili 1.4, AST 1193, ALT 1313, alk phos 97. vague historian. received additional vitamin K yesterday with INR currently down to 2. Surgery pending. Denies chest pain, palpitations or shortness of breath. Maintaining O2 sats in the low 90s on 2 L nasal cannula. --status post left tibia IM nail, postop day #1. Tolerated procedure well. Fatigued, sleepy, disoriented. Denies pain at rest. Denies chest pain, palpitations or shortness of breath. Maintaining O2 sats in the high 90s on 3 L nasal cannula. Elevated LFTs yesterday, ultrasound of gallbladder reported cholelithiasis with stone at the gallbladder neck, right pleural effusion, mild hepatic steatosis. F/U labs pending. Hemodialysis today. --significant clinical improvement. Mild confusion persists, word searching. sitting up in bed eating breakfast. Denies nausea vomiting. Denies abdominal pain. Positive surgical pain. Hepatitis panel nonreactive, LFTs trending down. INR 1.9, Coumadin resumed. --O2 weaned off, maintaining O2 sats in the low 90s on room air. Mild pleasant confusion, alert to person, currently. Hemoglobin 7.7, platelets 168. LFTs continue to improve. Hemodialysis today. Coumadin per pharmacy dosing, INR 2.9. Denies chest pain, palpitations or shortness of breath. Reports surgical tenderness to touch. passing flatus. 05/09/2024 Patient is seen and evaluated in room at bedside; no specific complaints reported Vital signs reviewed and stable with temperature of 98.9, pulse 69, respiration 18 and blood pressure 138/55 and O2 saturation 96% on 1 L Lab review shows WBC of 9.1, hemoglobin of 8.3 and platelet count of 199, PT 29.5 with INR of 2.9, sodium 136, potassium 3.5, BUNs/creatinine of 40/3.9, AST ALT continue to trend down at 90/236 Orthopedic surgery following post left tibia IM nail, POD #4; patient has been evaluated by PT and is recommended skilled rehab --Case management on board for discharge planning; patient will need autho rization for rehab -Continue with current schedule of hemodialysis 05/10/2024 Patient is seen and evaluated in room at bedside; discussed with nursing staff; no specific complaints reported Vital signs are reviewed temperature 97.8, pulse 80, respiration 20 and blood pressure 133/54 Patient being followed by orthopedic surgery for closed left tibia fibula fracture; patient is recommended skilled rehab; insurance authorization is pending Remains on hemodialysis every Saturday and Saturday via left arm AV fistula; nephrology on board Cholelithiasis with gallbladder neck stone; we will monitor liver enzymes Discharge when insurance authorization is obtained Objective - Vital Signs Vital signs: Vital Signs Temp 97.8 F 05/10/24 07:19 Pulse 60 05/10/24 12:51 Resp 20 05/10/24 07:19 BP 133/54 05/10/24 07:19 Pulse Ox 93 L 05/10/24 08:18 FiO2 Intake & Output 05/09/24 05/10/24 05/10/24 18:59 06:59 18:59 Other: # Voids 1 # Bowel Movements 1 - Exam GENERAL: alert and oriented x 1, pleasantly confused, drowsy, no acute distress. HEENT: Normocephalic, conjunctivae normal. eyes normal. Sclera anicteric. NECK: Supple, no JVD. CARDIOVASCULAR: S1, S2 regular. Systolic murmur RESPIRATION: Unlabored, equal air entry ,breath sounds diminished. ABDOMEN: Soft, nondistended, nontender, no guarding, no rigidity. +BS LEGS: Left lower extremity Eric wrapped with unchanged outlined prior shadowing, toes warm- moving freely, positive sensation. NERVOUS SYSTEM: Cranial N 2-12 grossly normal. No focal deficits. Strength and sensation grossly intact. Skin: Warm and dry, no rash - Labs CBC & Chem 7: 05/09/24 06:19 05/09/24 06:19 Labs: Abnormal Lab Results - Last 24 Hours (Table) 05/09/24 05/10/24 Range/Units 06:19 06:38 PT 29.5 H 23.0 H (9.9-11.9) sec INR 2.93 H 2.3 H (0.93-1.11) sec Assessment and Plan Assessment: Fracture of tibia with fibula, left, closed, status post left tibia IM nail. Acute toxic, metabolic, encephalopathy, medication, anesthesia related and secondary to shocked liver. Coumadin coagulopathy, supratherapeutic, status post vitamin K Acute on chronic anemia secondary to Coumadin coagulopathy, status post 1 unit packed RBCs Acute hypoxic respiratory failure secondary to all the above, currently resolved. Elevated LFTs since admission, possibly related to hypoperfusion during HD as per GI, improving Cholelithiasis with stone at the gallbladder neck reported per ultrasound Mild hepatic steatosis Chronic diastolic CHF End-stage renal disease on hemodialysis, history of cardiorenal syndrome. HD Saturday Chronic atrial fibrillation History of pacemaker implantation, complete heart block CAD Severe pulmonary hypertension Moderate to severe mitral regurgitation Moderate to severe tricuspid regurgitation Multivalvular heart disease including mild aortic stenosis Plan: Continue on current medication regimen ,monitoring and symptomatic treatment. Hemodialysis as per nephrology.Aggressive pulmonary toileting with nebulized bronchodilators, incentive spirometer reinforced. Frequent reorientation, delirium precautions, patient to be up in chair-able to look out window-blinds up. Coumadin per pharmacy dosing ordered. Pain management. PT.
[2024-05-11 02:07] VITALS: BP 157/69; PULSE 69; TEMP 97.5
[2024-05-11] MEDS ORDERED: FAMOTIDINE 20 MG TAB ONE (08:14)
[2024-05-11] MEDS ORDERED: SENNOSIDES-DOCUSATE SODIUM 1 EACH TAB PO ONE (08:14)
[2024-05-11] MEDS ORDERED: polyethylene glycoL 3350 17 GM POWD.PACK ONE (08:14)
[2024-05-12] MEDS ORDERED: FAMOTIDINE 20 MG TAB ONE (07:45)
[2024-05-12] MEDS ORDERED: IPRATROPIUM-ALBUTEROL 3 ML NEB ONE ×2 (08:02→20:19)
[2024-05-12] MEDS ORDERED: diazePAM 2 MG TAB ONE (08:35)
[2024-05-12] MEDS ORDERED: WARFARIN 3 MG TAB ONE (09:00)
[2024-06-03 10:00] LABS: Prothrombin Time 20.5 sec (10.0-12.5)
--- NOTE | 2024-06-12 10:52 | CDI ---
Documentation Clarification Form Date: 06/12/2024 From: TOYIN Johnson Admit Date: 05/02/2024 07:12:00 AM Patient Name: Lionel Fair Visit Number: [id number] Discharge Date: 05/12/2024 12:34:00 PM ATTENTION: The Clinical Documentation Specialists (CDI) and [facility] Coding Staff appreciate your assistance in clarifying documentation. Please respond to the clarification below the line at the bottom and electronically sign. The CDI & [facility] Coding staff will review the response and follow-up if needed. Please note: Queries are made part of the Legal Health Record. If you have any questions, please contact the author of this message via ITS. Doctor/Provider: Kimi Tsang DO Patient presents with Left tibial shaft fracture. Additional clarification regarding the etiology of the fracture is requested. History/Risk Factors: This is an 79-year old male who fell in his home, states he had immediate pain in his left leg. X-Ray Results: Tibia/Fibula showed "Comminuted distal tibia and fibular fracture" Clinical Indications: Operative Findings Bone is quite osteoporotic Treatment: Left tibia IM Nail on 05/05/24 Please clarify the etiology of the fracture, if known: [ ] Traumatic [ ] Osteoporosis [ ] Other (please specify): [ ] Unable to determine This was a traumatic fracture MTDD
== END 2024-05-12 12:34 | DRG 492 ==
LOC: EC 02:30 → 4SSUR 07:12
PROVIDERS: ADMIT Family Medicine; ATTEND Family Medicine
PROC: 30233N1 Transfusion of Nonautologous Red Blood Cells into Peripheral Vein, Percutaneous Approach (ICD-10-PCS; 2024-05-03)
PROC: 5A1D70Z Performance of Urinary Filtration, Intermittent, Less than 6 Hours Per Day (ICD-10-PCS; 2024-05-04)
PROC: 30233K1 Transfusion of Nonautologous Frozen Plasma into Peripheral Vein, Percutaneous Approach (ICD-10-PCS; 2024-05-05)
PROC: 0QSH06Z Reposition Left Tibia with Intramedullary Internal Fixation Device, Open Approach (ICD-10-PCS; principal; 2024-05-05 07:30)
DX: S82.392A Other fracture of lower end of left tibia, initial encounter for closed fracture (principal); G92.8 Other toxic encephalopathy; I50.33 Acute on chronic diastolic (congestive) heart failure; J96.01 Acute respiratory failure with hypoxia; N18.6 End stage renal disease; I48.21 Permanent atrial fibrillation; I08.1 Rheumatic disorders of both mitral and tricuspid valves; Y92.000 Kitchen of unspecified non-institutional (private) residence as the place of occurrence of the external cause; I25.10 Atherosclerotic heart disease of native coronary artery without angina pectoris; K80.20 Calculus of gallbladder without cholecystitis without obstruction; T45.515A Adverse effect of anticoagulants, initial encounter; W01.0XXA Fall on same level from slipping, tripping and stumbling without subsequent striking against object, initial encounter; S82.402A Unspecified fracture of shaft of left fibula, initial encounter for closed fracture; Z79.01 Long term (current) use of anticoagulants; Z79.82 Long term (current) use of aspirin; Z79.899 Other long term (current) drug therapy; Z95.0 Presence of cardiac pacemaker; Z95.5 Presence of coronary angioplasty implant and graft; Z96.641 Presence of right artificial hip joint; Z99.2 Dependence on renal dialysis
CPT/HCPCS: 36415; 70450; 71045; 76705; 80048; 80053; 80074; 84132; 85025; 85027; 85610; 85730; 86850; 86900; 86901; 86920; 90935; 93005; 93306; 94640; 94760; 96374; 96375; 99285

== ENCOUNTER 2024-06-25 15:57 | Inpatient (IN) | payer MEDICARE ==
--- NOTE | 2024-06-25 16:30 | ED ---
Recheck HPI - General Chief Complaint: Recheck/Abnormal Lab/Rx Stated Complaint: abn labs Time Seen by Provider: 06/25/24 16:09 Source: patient, RN notes reviewed, old records reviewed Mode of arrival: ambulatory Limitations: no limitations - History of Present Illness Initial Comments: This is a 79-year-old male to the ER today. This patient presents today for evaluation of severe dyspnea and shortness of breath. Patient has recent complicated medical history consisting of pneumonia with inpatient treatment inpatient rehabilitation and now with profound dyspnea MD Complaint: abnormal lab (Low oxygen level) -: days(s) Returns Today for: Called Because of Abnormal Lab/Test (Low oxygen level), persistent/worsening pain related to initial visit Symptoms Since Prior Visit: no new symptoms Associated Symptoms: chills, shortness of breath, malaise - Related Data Home Medications Medication Instructions Recorded Confirmed Aspirin EC [Ecotrin Low Dose] 81 mg PO DAILY 08/04/21 06/25/24 Sevelamer Carbonate 1,600 mg PO TID-W/MEALS 08/28/22 06/25/24 levOCARNitine [Levocarnitine] 330 mg PO HS@1700 01/15/23 06/25/24 Atorvastatin [Lipitor] 20 mg PO DAILY 05/16/23 06/25/24 Furosemide [Lasix] 40 mg PO BID@0900,1700 05/16/23 06/25/24 Sildenafil [Revatio] 20 mg PO BID@0900,1700 05/16/23 06/25/24 Omeprazole 20 mg PO HS@1700 02/15/24 06/25/24 carvediloL [Coreg] 3.125 mg PO HS@1700 02/15/24 06/25/24 Sevelamer [Renvela] 1,600 mg PO DAILY PRN 05/02/24 06/25/24 buPROPion XL [Wellbutrin XL] 150 mg PO DAILY 05/02/24 06/25/24 Acetaminophen Tab [Tylenol] 650 mg PO Q6H PRN 06/25/24 06/25/24 Apixaban [Eliquis] 2.5 mg PO BID@0900,1700 06/25/24 06/25/24 Benzonatate [Tessalon Perles] 200 mg PO Q6H PRN 06/25/24 06/25/24 HYDROcodone/APAP 5-325MG [Luverne 5] 1 tab PO Q6HR PRN 06/25/24 06/25/24 Ipratropium-Albuterol Nebulize 3 ml INHALATION RT-Q4H PRN 06/25/24 06/25/24 [Duoneb 0.5 mg-3 mg/3 ml Soln] Multivitamins, Thera [Multivitamin 1 tab PO HS@1700 06/25/24 06/25/24 (formulary)] polyethylene glycoL 3350 [Miralax] 17 gm PO DAILY 06/25/24 06/25/24 Previous Rx's Medication Instructions Recorded Sennosides-Docusate Sodium 2 tab PO DAILY #30 tablet 05/07/24 [Senokot-S] Allergies Allergy/AdvReac Type Severity Reaction Status Date / Time No Known Allergies Allergy Verified 06/25/24 16:04 Review of Systems ROS Statement: Those systems with pertinent positive or pertinent negative responses have been documented in the HPI. ROS Other: All systems not noted in ROS Statement are negative. Past Medical History Past Medical History: Atrial Fibrillation, Dialysis, Eye Disorder Additional Past Medical History / Comment(s): heart murmur, Kidney Failure- Dialysis MOWEFR-has little urine output,approx twice per day,pt thinks may be on fluid restrictions checking with dialysis on 01-16-23 to confirm how much fluids per day he can have. Cataracts. History of Any Multi-Drug Resistant Organisms: None Reported Past Surgical History: Joint Replacement, Pacemaker Additional Past Surgical History / Comment(s): Cardiac stents, right hip replacement,left upper arm av fistula Past Anesthesia/Blood Transfusion Reactions: No Reported Reaction Additional Past Anesthesia/Blood Transfusion Reaction / Comment(s): no problems with prior blood transfusion Type of Cardiac Device: Unknown Device Placement Date:: 2010 Past Psychological History: No Psychological Hx Reported Smoking Status: Never smoker Past Alcohol Use History: None Reported Past Drug Use History: None Reported - Past Family History Father Family Medical History: Hypertension Brother(s) Family Medical History: Cancer Additional Family Medical History / Comment(s): 2 brothers of cancer. General Exam Limitations: no limitations, altered mental status General appearance: anxious, in distress Head exam: Present: atraumatic, normocephalic, normal inspection Eye exam: Present: normal appearance, PERRL, EOMI. Absent: scleral icterus, conjunctival injection, periorbital swelling ENT exam: Present: normal exam, mucous membranes moist Neck exam: Present: normal inspection. Absent: tenderness, meningismus, lymphadenopathy Respiratory exam: Present: respiratory distress, wheezes, accessory muscle use, decreased breath sounds, prolonged expiratory. Absent: rales, rhonchi, stridor Cardiovascular Exam: Present: regular rate, normal rhythm, normal heart sounds. Absent: systolic murmur, diastolic murmur, rubs, gallop, clicks GI/Abdominal exam: Present: soft, normal bowel sounds. Absent: distended, tenderness, guarding, rebound, rigid Extremities exam: Present: normal inspection, full ROM, normal capillary refill. Absent: tenderness, pedal edema, joint swelling, calf tenderness Back exam: Present: normal inspection Neurological exam: Present: alert, oriented X3, CN II-XII intact Psychiatric exam: Present: normal affect, normal mood Skin exam: Present: warm, dry, intact, normal color. Absent: rash Course Vital Signs 06/25/24 06/25/24 06/25/24 16:00 16:20 18:00 Temperature 98.1 F Pulse Rate 70 71 69 Respiratory 18 20 18 Rate Blood Pressure 145/62 135/66 145/72 O2 Sat by Pulse 90 L 92 L 98 Oximetry 06/25/24 06/25/24 06/26/24 19:22 22:59 01:30 Temperature Pulse Rate 66 61 68 Respiratory 18 12 18 Rate Blood Pressure 146/70 141/71 157/74 O2 Sat by Pulse 99 99 95 Oximetry 06/26/24 06/26/24 06/26/24 06:54 08:03 11:31 Temperature Pulse Rate 70 68 Respiratory 18 18 Rate Blood Pressure 151/72 150/67 O2 Sat by Pulse 93 L 91 L 99 Oximetry 06/26/24 16:27 Temperature Pulse Rate 80 Respiratory 18 Rate Blood Pressure 143/60 O2 Sat by Pulse 97 Oximetry - Reevaluation(s) Reevaluation #1: 06/25/24 19:05 Medical records reviewed Reevaluation #2: 06/25/24 19:05 Patient symptoms unchanged 06/25/24 19:05 Patient symptoms are significantly worse with any movement he did get up to go to the bathroom and became very dusky and cyanotic Reevaluation #3: 06/25/24 19:05 Patient informed of results and questions answered Reevaluation #4: Was pt. sent in by a medical professional or institution (TOM Santos, [employer], urgent care, hospital, or shelter...) When possible be specific @ -no Did you speak to anyone other than the patient for history (EMS, parent, family, police, friend...)? What history was obtained from this source @ -no Did you review nursing and triage notes (agree or disagree)? Why? @ -agree Are old charts reviewed (outside hosp., previous admission, EMS record, old EKG, old radiological studies, urgent care reports/EKG's, shelter records)? Report findings @ -yes Differential Diagnosis (chest pain, altered mental status, abdominal pain women, abdominal pain men, vaginal bleeding, weakness, fever, dyspnea, syncope, headache, dizziness, GI bleed, back pain, seizure, CVA, palpatations, mental health, musculoskeletal)? @ -prior EKG interpreted by me (3pts min.). @ -yes X-rays interpreted by me (1pt min.). @ -no CT interpreted by me (1pt min.). @ -yes positive for CHF and groundglass opacities U/S interpreted by me (1pt. min.). @ -no What testing was considered but not performed or refused? (CT, X-rays, U/S, labs)? Why? @ -none What meds were considered but not given or refused? Why? @ -none Did you discuss the management of the patient with other professionals (professionals i.e. TOM Santos, [employer], lab, RT, psych nurse, social organization professor, truck driver teamster, teacher, chief innovation officer, correctional casework specialist)? Give summary @ -no Was smoking cessation discussed for >3mins.? @ -no Was critical care preformed (if so, how long)? @ -no Were there social determinants of health that impacted care today? How? (Homelessness, low income, unemployed, alcoholism, drug addiction, transportation, low edu. Level, literacy, decrease access to med. care, alf, rehab)? @ -none Was there de-escalation of care discussed even if they declined (Discuss DNR or withdrawal of care, Hospice)? DNR status @ -no What co-morbidities impacted this encounter? (DM, HTN, Smoking, COPD, CAD, Cancer, CVA, ARF, Chemo, Hep., AIDS, mental health diagnosis, sleep apnea, morbid obesity)? @ -none Was patient admitted / discharged? Hospital course, mention meds given and route, prescriptions, significant lab abnormalities, going to OR and other pe rtinent info. @ - 79 male to ER for evaluation, patient has complicated recent medical history with inpatient evaluation and treatment for pneumonia which resulted in rehabilitation inpatient and currently is been home for a week now with profound hypoxia and weakness for the last 2 days concern for PE. Admitted Undiagnosed new problem with uncertain prognosis? @ -no Drug Therapy requiring intensive monitoring for toxicity (Heparin, Nitro, Insulin, Cardizem)? @ -no Were any procedures done? @ -no Diagnosis/symptom? @ -Hypoxia and CHF Acute, or Chronic, or Acute on Chronic? @ -Acute Uncomplicated (without systemic symptoms) or Complicated (systemic symptoms)? @ -Complicated Side effects of treatment? @ -no Exacerbation, Progression, or Severe Exacerbation? @ -exacerbation Poses a threat to life or bodily function? How? (Chest pain, USA, AR, pneumonia, PE, COPD, DKA, ARF, appy, cholecystitis, CVA, Diverticulitis, Homicidal, Suicidal, threat to staff... and all critical care pts) @ -yes extremes of age Reevaluation #5: Differential Dyspnea: Coronary syndrome, arrhythmia, tamponade, asthma, COPD, pulmonary embolism, pneumonia, pneumothorax, pulmonary effusion, anaphylaxis, diabetic ketoacidosis, flailed chest, pulmonary contusion, diaphragmatic rupture, anemia, neuromuscular, this is not meant to be an all-inclusive list. - Consultations Consultation #1: Spoke with Dr. Richardson who agrees to admit this patient Medical Decision Making - Medical Decision Making 79 male to ER for evaluation, patient has complicated recent medical history with inpatient evaluation and treatment for pneumonia which resulted in rehabilitation inpatient and currently is been home for a week now with profound hypoxia and weakness for the last 2 days concern for PE. - Lab Data Result diagrams: 07/06/24 21:10 07/06/24 21:10 Lab Results 06/25/24 06/25/24 06/25/24 Range/Units 16:36 16:36 16:36 WBC 6.1 (3.8-10.6) k/uL RBC 2.94 L (4.30-5.90) m/uL Hgb 8.7 L (13.0-17.5) gm/dL Hct 28.9 L (39.0-53.0) % MCV 98.3 D (80.0-100.0) fL MCH 29.4 (25.0-35.0) pg MCHC 29.9 L (31.0-37.0) g/dL RDW 19.5 H (11.5-15.5) % Plt Count 331 (150-450) k/uL MPV 6.8 Neutrophils % 76 % Lymphocytes % 11 % Monocytes % 7 % Eosinophils % 3 % Basophils % 0 % Neutrophils # 4.7 (1.3-7.7) k/uL Lymphocytes # 0.7 L (1.0-4.8) k/uL Monocytes # 0.5 (0-1.0) k/uL Eosinophils # 0.2 (0-0.7) k/uL Basophils # 0.0 (0-0.2) k/uL Hypochromasia Marked Anisocytosis Slight Macrocytosis Slight PT 13.6 H (10.0-12.5) sec INR 1.3 H (<1.2) APTT 30.7 H (22.0-30.0) sec D-Dimer 1.90 H (<0.60) mg/L FEU Sodium 141 (137-145) mmol/L Potassium 3.7 (3.5-5.1) mmol/L Chloride 97 L (98-107) mmol/L Carbon Dioxide 35 H (22-30) mmol/L Anion Gap 9 mmol/L BUN 21 H (9-20) mg/dL Creatinine 4.04 H (0.66-1.25) mg/dL Est GFR (CKD-EPI)AfAm 15 (>60 ml/min/1.73 sqM) Est GFR (CKD-EPI)NonAf 13 (>60 ml/min/1.73 sqM) Glucose 117 H (74-99) mg/dL Plasma Lactic Acid Eric (0.7-2.0) mmol/L Calcium 9.8 (8.4-10.2) mg/dL Phosphorus 3.0 (2.5-4.5) mg/dL Magnesium 2.1 (1.6-2.3) mg/dL Total Bilirubin 0.5 (0.2-1.3) mg/dL AST 21 (17-59) U/L ALT 10 (4-49) U/L Alkaline Phosphatase 117 (38-126) U/L Troponin I (0.000-0.034) ng/mL NT-Pro-B Natriuret Pep 63362 pg/mL Total Protein 6.7 (6.3-8.2) g/dL Albumin 3.8 (3.5-5.0) g/dL 06/25/24 06/25/24 Range/Units 16:36 16:36 WBC (3.8-10.6) k/uL RBC (4.30-5.90) m/uL Hgb (13.0-17.5) gm/dL Hct (39.0-53.0) % MCV (80.0-100.0) fL MCH (25.0-35.0) pg MCHC (31.0-37.0) g/dL RDW (11.5-15.5) % Plt Count (150-450) k/uL MPV Neutrophils % % Lymphocytes % % Monocytes % % Eosinophils % % Basophils % % Neutrophils # (1.3-7.7) k/uL Lymphocytes # (1.0-4.8) k/uL Monocytes # (0-1.0) k/uL Eosinophils # (0-0.7) k/uL Basophils # (0-0.2) k/uL Hypochromasia Anisocytosis Macrocytosis PT (10.0-12.5) sec INR (<1.2) APTT (22.0-30.0) sec D-Dimer (<0.60) mg/L FEU Sodium (137-145) mmol/L Potassium (3.5-5.1) mmol/L Chloride (98-107) mmol/L Carbon Dioxide (22-30) mmol/L Anion Gap mmol/L BUN (9-20) mg/dL Creatinine (0.66-1.25) mg/dL Est GFR (CKD-EPI)AfAm (>60 ml/min/1.73 sqM) Est GFR (CKD-EPI)NonAf (>60 ml/min/1.73 sqM) Glucose (74-99) mg/dL Plasma Lactic Acid Eric 2.0 (0.7-2.0) mmol/L Calcium (8.4-10.2) mg/dL Phosphorus (2.5-4.5) mg/dL Magnesium (1.6-2.3) mg/dL Total Bilirubin (0.2-1.3) mg/dL AST (17-59) U/L ALT (4-49) U/L Alkaline Phosphatase (38-126) U/L Troponin I 0.015 (0.000-0.034) ng/mL NT-Pro-B Natriuret Pep pg/mL Total Protein (6.3-8.2) g/dL Albumin (3.5-5.0) g/dL - EKG Data -: EKG Interpreted by Me (EKG is A-fib 68 QRS 131 QTc 453) - Radiology Data Radiology results: report reviewed (CT angio chest positive for CHF), image reviewed Critical Care Time Critical Care Time: Yes Total Critical Care Time: 31 Disposition Clinical Impression: CHF (congestive heart failure), End stage renal disease, ESRD (end stage renal disease) on dialysis, Weakness, Hypoxia Disposition: ADMITTED IP TO THIS HOSP Condition: Serious Is patient prescribed a controlled substance at d/c from ED?: No Time of Disposition: 19:00
[2024-06-25 17:06] LABS: Anisocytosis Slight; Basophils % (A) 0 %; Eosinophils # (A) 0.2 k/uL (0-0.7); Eosinophils % (A) 3 %; HCT 28.9 % (39.0-53.0); HGB 8.7 gm/dL (13.0-17.5); Hypochromasia Marked; Lymphocytes # (A) 0.7 k/uL (1.0-4.8); Lymphocytes % (A) 11 %; MCH 29.4 pg (25.0-35.0); MCHC 29.9 g/dL (31.0-37.0); Macrocytosis Slight; Mean Platelet Volume 6.8; Monocytes # (A) 0.5 k/uL (0-1.0); Monocytes % (A) 7 %; Neutrophils # (A) 4.7 k/uL (1.3-7.7); Neutrophils % (A) 76 %; Platelet Count 331 k/uL (150-450); RBC 2.94 m/uL (4.30-5.90); RDW 19.5 % (11.5-15.5); WBC 6.1 k/uL (3.8-10.6)
[2024-06-25] MEDS: SODIUM CHLORIDE 0.9% 1,000 ML IV STA (17:16)
[2024-06-25 17:19] LABS: MCV 98.3 fL (80.0-100.0)
[2024-06-25 17:20] LABS: INR 1.3 (<1.2); Partial Thromboplastin Time 30.7 sec (22.0-30.0); Prothrombin Time 13.6 sec (10.0-12.5)
[2024-06-25 17:24] LABS: ALT 10 U/L (4-49); AST 21 U/L (17-59); African American GFR (CKD) 15 (>60 ml/min/1.73 sqM); Albumin 3.8 g/dL (3.5-5.0); Alkaline Phosphatase 117 U/L (38-126); Anion Gap 9 mmol/L; Blood Urea Nitrogen 21 mg/dL (9-20); Calcium 9.8 mg/dL (8.4-10.2); Carbon Dioxide 35 mmol/L (22-30); Chloride 97 mmol/L (98-107); Glucose 117 mg/dL (74-99); Magnesium 2.1 mg/dL (1.6-2.3); Non-African American GFR(CKD) 13 (>60 ml/min/1.73 sqM); Potassium 3.7 mmol/L (3.5-5.1); Sodium 141 mmol/L (137-145); Total Bilirubin 0.5 mg/dL (0.2-1.3); Total Protein 6.7 g/dL (6.3-8.2)
[2024-06-25 18:07] LABS: NT-Pro-B-Type Natriuretic Pept 38200 pg/mL
[2024-06-25] MEDS ORDERED: ONDANSETRON 4 MG/2 ML VIAL IVP PRN (18:59)
[2024-06-25] MEDS ORDERED: NALOXONE 0.4 MG/ML 1 ML VIAL IV PRN (18:59)
[2024-06-25] MEDS: SODIUM CHLORIDE 0.9% 1,000 ML IV SCH (19:27)
--- NOTE | 2024-06-25 21:20 | CT ---
EXAMINATION TYPE: CT angio chest CT DLP: 390.2 mGycm, Automated exposure control for dose reduction was used. DATE OF EXAM: 06/25/2024 8:53 PM COMPARISON: Chest radiograph from same day. Multiple CTs of the chest with most recent on . CLINICAL INDICATION:Male, 79 years old with concern for PE TECHNIQUE/CONTRAST: CTA scan of the thorax is performed with IV Contrast, patient injected with 100 ml mL of Isovue 370, MIP images are created and reviewed these are created on a separate workstation.. FINDINGS: Pulmonary Artery: There is no evidence for a filling defect within the pulmonary vasculature to sugge st acute pulmonary embolism. The pulmonary artery is of normal size. Lungs/Pleura: Moderate right pleural effusion with associated atelectasis. Mosaic groundglass attenua tion of the lung parenchyma with scattered patchy groundglass changes are appreciated. No pneumothora x. Airway: Large airways are patent. Heart: Heart is globally enlarged. Left chest ICD device is seen. Vasculature: No evidence of aortic aneurysm. Left subclavian vascular stent noted. Mediastinum: Scattered nonenlarged lymph nodes are seen with no gross evidence of adenopathy. Musculoskeletal: Degenerative changes of the visualized spine with no acute osseous abnormalities acu te osseous abnormalities Soft Tissues/lymph nodes: Bilateral gynecomastia. There are multiple collateral vessels seen along th e left anterior chest wall.. Lower neck: Heterogenous enlarged thyroid gland with calcification seen in the left thyroid lobe.. Upper Abdomen: Cirrhotic morphology of the liver is suggested. Cholelithiasis. Partially visualized l eft renal indeterminate lesion measuring at least 4.6 cm with suggestive calcifications. IMPRESSION: 1. No evidence of pulmonary embolism. 2. Mosaic groundglass appearance of the lung parenchyma with scattered patchy ground glass changes ma y relate to pulmonary edema versus developing acute infectious/telemetry process. Correlate with clin ical evaluation. 3. Cardiomegaly. 4. Cirrhotic morphology of the liver suggested. 5. Cholelithiasis. 6. Indeterminate left renal lesion measuring 4.6 cm. Correlate with any known history or prior images otherwise further characterization with a nonemergent outpatient CT/MRI abdomen with and without IV contrast renal mass protocol is recommended. 7. Heterogenous and enlarged thyroid gland most likely representing goiter. [facility], , 06/25/2024 9:17 PM
[2024-06-26 09:04] LABS: Anisocytosis Slight; Basophils % (A) 0 %; Eosinophils # (A) 0.3 k/uL (0-0.7); Eosinophils % (A) 4 %; Hypochromasia Marked; Lymphocytes # (A) 0.9 k/uL (1.0-4.8); Lymphocytes % (A) 12 %; MCH 29.9 pg (25.0-35.0); MCHC 30.1 g/dL (31.0-37.0); MCV 99.5 fL (80.0-100.0); Macrocytosis Moderate; Mean Platelet Volume 7.6; Monocytes # (A) 0.5 k/uL (0-1.0); Monocytes % (A) 6 %; Neutrophils # (A) 5.6 k/uL (1.3-7.7); Neutrophils % (A) 74 %; Platelet Count 303 k/uL (150-450); RBC 3.02 m/uL (4.30-5.90); RDW 19.6 % (11.5-15.5); WBC 7.5 k/uL (3.8-10.6)
[2024-06-26 09:15] LABS: ALT 10 U/L (4-49); AST 20 U/L (17-59); African American GFR (CKD) 12 (>60 ml/min/1.73 sqM); Alkaline Phosphatase 126 U/L (38-126); Anion Gap 11 mmol/L; Blood Urea Nitrogen 26 mg/dL (9-20); Calcium 10.1 mg/dL (8.4-10.2); Carbon Dioxide 31 mmol/L (22-30); Chloride 97 mmol/L (98-107); Glucose 87 mg/dL (74-99); Magnesium 2.2 mg/dL (1.6-2.3); Non-African American GFR(CKD) 10 (>60 ml/min/1.73 sqM); Phosphorus 3.6 mg/dL (2.5-4.5); Potassium 3.8 mmol/L (3.5-5.1); Sodium 139 mmol/L (137-145); Total Bilirubin 0.7 mg/dL (0.2-1.3)
[2024-06-26] MEDS ORDERED: SEVELAMER 800 MG TAB PO PRN (09:33)
--- NOTE | 2024-06-26 10:16 | US ---
EXAMINATION TYPE: US chest DATE OF EXAM: 06/26/2024 COMPARISON: CT 06/25/2024 XR 05/02/2024 CLINICAL INDICATION: Male, 79 years old with history of Right pleural effusion; TECHNIQUE: Targeted ultrasound of the posterior lower Right EXAM MEASUREMENTS: Right Pleural Effusion pocket size: 11.3 cm Right skin surface to fluid distance: 1.3 cm Left Pleural Effusion pocket size: NA cm Left skin surface to fluid distance: NA cm Right side marked for possible thoracentesis outside the dept. Left side marked for possible thoracentesis outside the dept. Pulmonologists are able to review the images in the patient?s EMR. IMPRESSIONS: Right pleural effusion marked for thoracentesis. [facility], , 06/26/2024 10:14 AM
--- NOTE | 2024-06-26 10:42 | P.NPCON ---
History of Present Illness - Reason for Consult end stage renal disease - History of Present Illness patient is an 79-year-old male with end-stage renal disease on hemodialysis on Saturday schedule. He is admitted to the hospital with complaints of shortness of breath. No history of fever. Patient was recently discharged home from rehab after hospitalization. He had been home only for 7 days. Patient has not missed any hemodialysis treatments. CTA was negative for PE and did show suggestion of volume overload. blood pressure has been high. Past Medical History Past Medical History: Atrial Fibrillation, Dialysis, Eye Disorder Additional Past Medical History / Comment(s): heart murmur, Kidney Failure- Dialysis MOWEFR-has little urine output,approx twice per day,pt thinks may be on fluid restrictions checking with dialysis on 01-16-23 to confirm how much fluids per day he can have. Cataracts. History of Any Multi-Drug Resistant Organisms: None Reported Past Surgical History: Joint Replacement, Pacemaker Additional Past Surgical History / Comment(s): Cardiac stents, right hip replacement,left upper arm av fistula Past Anesthesia/Blood Transfusion Reactions: No Reported Reaction Additional Past Anesthesia/Blood Transfusion Reaction / Comment(s): no problems with prior blood transfusion Type of Cardiac Device: Unknown Device Placement Date:: 2010 Past Psychological History: No Psychological Hx Reported Smoking Status: Never smoker Past Alcohol Use History: None Reported Past Drug Use History: None Reported - Past Family History Father Family Medical History: Hypertension Brother(s) Family Medical History: Cancer Additional Family Medical History / Comment(s): 2 brothers of cancer. Medications and Allergies Home Medications Medication Instructions Recorded Confirmed Type Aspirin EC [Ecotrin Low Dose] 81 mg PO DAILY 08/04/21 06/25/24 History Sevelamer Carbonate 1,600 mg PO TID-W/MEALS 08/28/22 06/25/24 History levOCARNitine [Levocarnitine] 330 mg PO HS@1700 01/15/23 06/25/24 History Atorvastatin [Lipitor] 20 mg PO DAILY 05/16/23 06/25/24 History Furosemide [Lasix] 40 mg PO BID@0900,1700 05/16/23 06/25/24 History Sildenafil [Revatio] 20 mg PO BID@0900,1700 05/16/23 06/25/24 History Omeprazole 20 mg PO HS@1700 02/15/24 06/25/24 History carvediloL [Coreg] 3.125 mg PO HS@1700 02/15/24 06/25/24 History Sevelamer [Renvela] 1,600 mg PO DAILY PRN 05/02/24 06/25/24 History buPROPion XL [Wellbutrin XL] 150 mg PO DAILY 05/02/24 06/25/24 History Sennosides-Docusate Sodium 2 tab PO DAILY #30 tablet 05/07/24 06/25/24 Rx [Senokot-S] Acetaminophen Tab [Tylenol] 650 mg PO Q6H PRN 06/25/24 06/25/24 History Apixaban [Eliquis] 2.5 mg PO BID@0900,1700 06/25/24 06/25/24 History Benzonatate [Tessalon Perles] 200 mg PO Q6H PRN 06/25/24 06/25/24 History HYDROcodone/APAP 5-325MG [[place] 5] 1 tab PO Q6HR PRN 06/25/24 06/25/24 History Ipratropium-Albuterol Nebulize 3 ml INHALATION RT-Q4H PRN 06/25/24 06/25/24 History [Duoneb 0.5 mg-3 mg/3 ml Soln] Multivitamins, Thera [Multivitamin 1 tab PO HS@1700 06/25/24 06/25/24 History (formulary)] polyethylene glycoL 3350 [Miralax] 17 gm PO DAILY 06/25/24 06/25/24 History Allergies Allergy/AdvReac Type Severity Reaction Status Date / Time No Known Allergies Allergy Verified 06/25/24 16:04 Physical Exam Vitals: Vital Signs Temp Pulse Resp BP Pulse Ox 06/26/24 08:03 91 L 06/26/24 06:54 70 18 151/72 93 L 06/26/24 01:30 68 18 157/74 95 06/25/24 22:59 61 12 141/71 99 06/25/24 19:22 66 18 146/70 99 06/25/24 18:00 69 18 145/72 98 06/25/24 16:20 71 20 135/66 92 L 06/25/24 16:00 98.1 F 70 18 145/62 90 L Intake and Output 06/25/24 06/26/24 06/26/24 22:59 06:59 14:59 Other: Weight 79.379 kg patient is awake, comfortable, alert oriented 3. No acute distress. Examination of the heart S1 and S2 Examination of the lungs bilateral breath sounds are heard Abdomen is soft nontender Examination of lower extremities shows no edema left foot is in a boot Results - Lab Results Most recent lab results Calcium 10.1 mg/dL (8.4-10.2) 06/26/24 08:17 Phosphorus 3.6 mg/dL (2.5-4.5) 06/26/24 08:17 Magnesium 2.2 mg/dL (1.6-2.3) 06/26/24 08:17 06/26/24 08:17 06/26/24 08:17 Assessment and Plan Assessment: 1. End-stage renal disease on hemodialysis onSaturday schedule 2 volume overload 3. CK D mineral bone disorder 4. Hypertension, volume sensitive 5. History of fall and fracture of left leg in April 2024 Plan: hemodialysis today with UF of about 2-3 L as tolerated. Continue Renvela with meals.
--- NOTE | 2024-06-26 11:51 | P.CNPUL ---
History of Present Illness Consult date: 06/26/24 Requesting physician: Alvaro Foster Reason for consult: dyspnea, hypoxemia, pleural effusion, abnormal CXR/CT Chief complaint: Shortness of breath. History of present illness: Pulmonary consult dated June 26, 2024. 79-year-old male who comes into the emergency room, on June 25, complaining of shortness of breath. The patient states that the shortness of breath has gotten worse over the last few days. The patient was seen in the emergency department, discovered to have a large right sided pleural effusion. We ended up seeing the patient in the emergency department, room #6. The patient had an elevated BNP. His CT scan was consistent with CHF. He is on 4 L of oxygen with saturations of 91%. He was getting saline at 75 cc an hour and I turned the fluid down to 20 cc an hour. Will plan on doing an ultrasound, to see if he has fluid, that can be drained via thoracentesis. He has a history of atrial fibrillation, heart murmur, kidney failure, on hemodialysis, previous pacemaker implantation, and cardiac stents for CAD. Current labs include a white count 7.5, hemoglobin 9, hematocrit 30, platelet count 303,000. Sodium 139, potassium 3.8, chlorides 97, CO2 31, BUN 26, creatinine 4.87. Troponins were 0.015, 0.017, and 0.021. N-terminal proBNP was 38,200. The patient's chest ultrasound showed a right-sided pleural effusion with a pocket size of 11.3 cm. Distance from the right skin surface to the fluid, was 1.3 cm. Review of Systems REVIEW OF SYSTEMS: CONSTITUTIONAL: [Negative.] NEUROLOGIC: [ Negative.] HEENT: [ Negative.] CARDIAC: [Negative.] PULMONARY: Shortness of breath. GI: [Negative.] : [Negative.] RHEUMATOLOGIC: [ Negative.] IMMUNOLOGIC: [ Negative.] ENDOCRINE: [Negative. ] DERMATOLOGIC: [Negative.] Past Medical History Past Medical History: Atrial Fibrillation, Dialysis, Eye Disorder Additional Past Medical History / Comment(s): heart murmur, Kidney Failure- Dialysis MOWEFR-has little urine output,approx twice per day,pt thinks may be on fluid restrictions checking with dialysis on 01-16-23 to confirm how much fluids per day he can have. Cataracts. History of Any Multi-Drug Resistant Organisms: None Reported Past Surgical History: Joint Replacement, Pacemaker Additional Past Surgical History / Comment(s): Cardiac stents, right hip replacement,left upper arm av fistula Past Anesthesia/Blood Transfusion Reactions: No Reported Reaction Additional Past Anesthesia/Blood Transfusion Reaction / Comment(s): no problems with prior blood transfusion Type of Cardiac Device: Unknown Device Placement Date:: 2010 Past Psychological History: No Psychological Hx Reported Smoking Status: Never smoker Past Alcohol Use History: None Reported Past Drug Use History: None Reported - Past Family History Father Family Medical History: Hypertension Brother(s) Family Medical History: Cancer Additional Family Medical History / Comment(s): 2 brothers of cancer. Medications and Allergies Home Medications Medication Instructions Recorded Confirmed Type Aspirin EC [Ecotrin Low Dose] 81 mg PO DAILY 08/04/21 06/25/24 History Sevelamer Carbonate 1,600 mg PO TID-W/MEALS 08/28/22 06/25/24 History levOCARNitine [Levocarnitine] 330 mg PO HS@1700 01/15/23 06/25/24 History Atorvastatin [Lipitor] 20 mg PO DAILY 05/16/23 06/25/24 History Furosemide [Lasix] 40 mg PO BID@0900,1700 05/16/23 06/25/24 History Sildenafil [Revatio] 20 mg PO BID@0900,1700 05/16/23 06/25/24 History Omeprazole 20 mg PO HS@1700 02/15/24 06/25/24 History carvediloL [Coreg] 3.125 mg PO HS@1700 02/15/24 06/25/24 History Sevelamer [Renvela] 1,600 mg PO DAILY PRN 05/02/24 06/25/24 History buPROPion XL [Wellbutrin XL] 150 mg PO DAILY 05/02/24 06/25/24 History Sennosides-Docusate Sodium 2 tab PO DAILY #30 tablet 05/07/24 06/25/24 Rx [Senokot-S] Acetaminophen Tab [Tylenol] 650 mg PO Q6H PRN 06/25/24 06/25/24 History Apixaban [Eliquis] 2.5 mg PO BID@0900,1700 06/25/24 06/25/24 History Benzonatate [Tessalon Perles] 200 mg PO Q6H PRN 06/25/24 06/25/24 History HYDROcodone/APAP 5-325MG [[place] 5] 1 tab PO Q6HR PRN 06/25/24 06/25/24 History Ipratropium-Albuterol Nebulize 3 ml INHALATION RT-Q4H PRN 06/25/24 06/25/24 History [Duoneb 0.5 mg-3 mg/3 ml Soln] Multivitamins, Thera [Multivitamin 1 tab PO HS@1700 06/25/24 06/25/24 History (formulary)] polyethylene glycoL 3350 [Miralax] 17 gm PO DAILY 06/25/24 06/25/24 History Allergies Allergy/AdvReac Type Severity Reaction Status Date / Time No Known Allergies Allergy Verified 06/25/24 16:04 Physical Exam Osteopathic Statement: *. No significant issues noted on an osteopathic structural exam other than those noted in the History and Physical/Consult. Vitals: Vital Signs Temp Pulse Resp BP Pulse Ox 06/26/24 11:31 68 18 150/67 99 06/26/24 08:03 91 L 06/26/24 06:54 70 18 151/72 93 L 06/26/24 01:30 68 18 157/74 95 06/25/24 22:59 61 12 141/71 99 06/25/24 19:22 66 18 146/70 99 06/25/24 18:00 69 18 145/72 98 06/25/24 16:20 71 20 135/66 92 L 06/25/24 16:00 98.1 F 70 18 145/62 90 L Intake and Output 06/25/24 06/26/24 06/26/24 22:59 06:59 14:59 Other: Weight 79.379 kg No acute distress, oriented 3. Currently on 2 L with saturations of 99%. HEENT examination is grossly unremarkable. Mucous membranes are moist. No oral lesions. Neck supple. Full range of motion. No adenopathy thyromegaly or neck vein distention. Cardiovascular examination reveals regular rhythm rate. S1-S2 normal. No S3 or S4. No discernible murmur noted. Sounds are distant. Lungs reveal manage breath sounds on the right. Dullness on percussion on the right. Abdomen soft bowel sounds are heard. No masses or tenderness. Extremities are intact. No cyanosis clubbing or edema. Skin is without rash or lesion. Neurologic examination is brief but nonfocal. Results - Laboratory Findings CBC and BMP: 06/26/24 08:17 06/26/24 08:17 PT/INR, D-dimer PT 13.6 sec (10.0-12.5) H 06/25/24 16:36 INR 1.3 (<1.2) H 06/25/24 16:36 D-Dimer 1.90 mg/L FEU (<0.60) H 06/25/24 16:36 Abnormal lab findings: Abnormal Labs 06/25/24 06/25/24 06/25/24 16:36 16:36 16:36 RBC 2.94 L Hgb 8.7 L Hct 28.9 L MCHC 29.9 L RDW 19.5 H Lymphocytes # 0.7 L PT 13.6 H INR 1.3 H APTT 30.7 H D-Dimer 1.90 H Chloride 97 L Carbon Dioxide 35 H BUN 21 H Creatinine 4.04 H Glucose 117 H 06/26/24 06/26/24 08:17 08:17 RBC 3.02 L Hgb 9.0 L Hct 30.0 L MCHC 30.1 L RDW 19.6 H Lymphocytes # 0.9 L PT INR APTT D-Dimer Chloride 97 L Carbon Dioxide 31 H BUN 26 H Creatinine 4.87 H Glucose - Diagnostic Findings Chest x-ray: image reviewed CT scan - chest: image reviewed Assessment and Plan Assessment: Acute shortness of breath, secondary to large right-sided pleural effusion. Suspect congestive heart failure. End-stage renal disease, currently on 3 times a week hemodialysis. History of hyperlipidemia. History of hypertension. History of atrial fibrillation. History of cataracts. Previous pacemaker implantation. CAD with previous stent placement. Plan: Plan dated June 26, 2024. The patient has a large right-sided pleural effusion. Will plan on doing a thoracentesis sometime today. Additional recommendations and suggestions are forthcoming. The fluid will be sent for analysis. No additional recommendations are made. Labs, x-rays, and medications are reviewed. Time with Patient: Greater than 30
--- NOTE | 2024-06-26 12:53 | P.HPIM ---
History of Present Illness H&P Date: 06/26/24 History of present illness; patient 79-year-old gentleman with past medical history significant for end-stage renal disease, diastolic CHF and moderate to severe mitral and tricuspid regurgitation and A-fib on Coumadin who presented to the ER because of worsening shortness of breath. Patient stated he was recently treated for pneumonia and was sent to rehab. Patient stated that ever since his discharge from rehab he is noticing that has been more short of breath. Shortness of breath is at rest as on exertion. Denies any chest pain. Denies any palpitations. There is no complaint of fever or chills. Patient is complaining of increasing lethargy and weakness. Because of the symptoms, jorge barksdale presented to the ER Initial lab work done in the ER showed W6.1, hemoglobin 8.7, platelet count 391, D-dimer 1.90, sodium 141, potassium 3.7, BUN 21, creatinine 4.04 glucose is 117 troponin 0.015 proBNP [id number] EKG done in the ER showed heart rate of 68, no ST segment elevation or depression seen, no T-wave inversions seen. CTA chest done showed no PE, showed groundglass opacities of the lung parenchyma with scattered patchy groundglass changes may lead to pulmonary edema versus developing acute infection/inflammatory process, showed cardiomegaly, cirrhotic morphology of the liver, cholelithiasis. Left renal lesion 4.6 cm in size outpatient CT/MRI abdomen recommended Patient admitted to internal medicine service REVIEW OF SYSTEMS: CONSTITUTIONAL: No fever, no malaise, no fatigue. HEENT: No recent visual problems or hearing problems. Denied any sore throat. CARDIOVASCULAR: As mentioned above PULMONARY: As mentioned above GASTROINTESTINAL: No diarrhea, no nausea, no vomiting, no abdominal pain. NEUROLOGICAL: No headaches, no weakness, no numbness. HEMATOLOGICAL: Denies any bleeding or petechiae. GENITOURINARY: Denies any burning micturition, frequency, or urgency. MUSCULOSKELETAL/RHEUMATOLOGICAL: Denies any joint pain, swelling, or any muscle pain. ENDOCRINE: Denies any polyuria or polydipsia. The rest of the 14-point review of systems is negative. PHYSICAL EXAMINATION: GENERAL: The patient is alert and oriented x3, not in any acute distress. Well developed, well nourished. HEENT: Pupils are round and equally reacting to light. EOMI. No scleral icterus. No conjunctival pallor. Normocephalic, atraumatic. No pharyngeal erythema. No thyromegaly. CARDIOVASCULAR: S1 and S2 present. No murmurs, rubs, or gallops. PULMONARY: Chest is clear to auscultation, no wheezing or crackles. ABDOMEN: Soft, nontender, nondistended, normoactive bowel sounds. No palpable organomegaly. MUSCULOSKELETAL: No joint swelling or deformity. EXTREMITIES: No cyanosis, clubbing, or pedal edema. NEUROLOGICAL: Gross neurological examination did not reveal any focal deficits. SKIN: No rashes. Assessment and plan End-stage renal disease on hemodialysis Acute hypoxic respiratory failure Right-sided pleural effusion Chronic persistent A-fib Acute on chronic CHF with diastolic ejection fraction 50% Moderate to severe mitral regurgitation and tricuspid regurgitation Chronic anemia Monitor vital signs Monitor CBC Monitor CMP Continue telemetry monitoring Strict I's and O's Daily weights Low potassium diet Ordered breathing treatments Resume Lasix Nephrology consulted for dialysis. Pulmonology consulted Labs and medication were reviewed.. Continue same treatment. Continue with symptomatic treatment. Resume home medication. Monitor labs and vitals. DVT and GI prophylaxis. Further recommendations as per clinical course of the patient Dictation was produced using [employer] dictation software. please excuse any grammatical, word or spelling errors. Past Medical History Past Medical History: Atrial Fibrillation, Dialysis, Eye Disorder Additional Past Medical History / Comment(s): heart murmur, Kidney Failure- Dialysis MOWEFR-has little urine output,approx twice per day,pt thinks may be on fluid restrictions checking with dialysis on 01-16-23 to confirm how much fluids per day he can have. Cataracts. History of Any Multi-Drug Resistant Organisms: None Reported Past Surgical History: Joint Replacement, Pacemaker Additional Past Surgical History / Comment(s): Cardiac stents, right hip replacement,left upper arm av fistula Past Anesthesia/Blood Transfusion Reactions: No Reported Reaction Additional Past Anesthesia/Blood Transfusion Reaction / Comment(s): no problems with prior blood transfusion Type of Cardiac Device: Unknown Device Placement Date:: 2010 Past Psychological History: No Psychological Hx Reported Smoking Status: Never smoker Past Alcohol Use History: None Reported Past Drug Use History: None Reported - Past Family History Father Family Medical History: Hypertension Brother(s) Family Medical History: Cancer Additional Family Medical History / Comment(s): 2 brothers of cancer. Medications and Allergies Home Medications Medication Instructions Recorded Confirmed Type Aspirin EC [Ecotrin Low Dose] 81 mg PO DAILY 08/04/21 06/25/24 History Sevelamer Carbonate 1,600 mg PO TID-W/MEALS 08/28/22 06/25/24 History levOCARNitine [Levocarnitine] 330 mg PO HS@1700 01/15/23 06/25/24 History Atorvastatin [Lipitor] 20 mg PO DAILY 05/16/23 06/25/24 History Furosemide [Lasix] 40 mg PO BID@0900,1700 05/16/23 06/25/24 History Sildenafil [Revatio] 20 mg PO BID@0900,1700 05/16/23 06/25/24 History Omeprazole 20 mg PO HS@1700 02/15/24 06/25/24 History carvediloL [Coreg] 3.125 mg PO HS@1700 02/15/24 06/25/24 History Sevelamer [Renvela] 1,600 mg PO DAILY PRN 05/02/24 06/25/24 History buPROPion XL [Wellbutrin XL] 150 mg PO DAILY 05/02/24 06/25/24 History Sennosides-Docusate Sodium 2 tab PO DAILY #30 tablet 05/07/24 06/25/24 Rx [Senokot-S] Acetaminophen Tab [Tylenol] 650 mg PO Q6H PRN 06/25/24 06/25/24 History Apixaban [Eliquis] 2.5 mg PO BID@0900,1700 06/25/24 06/25/24 History Benzonatate [Tessalon Perles] 200 mg PO Q6H PRN 06/25/24 06/25/24 History HYDROcodone/APAP 5-325MG [[place] 5] 1 tab PO Q6HR PRN 06/25/24 06/25/24 History Ipratropium-Albuterol Nebulize 3 ml INHALATION RT-Q4H PRN 06/25/24 06/25/24 History [Duoneb 0.5 mg-3 mg/3 ml Soln] Multivitamins, Thera [Multivitamin 1 tab PO HS@1700 06/25/24 06/25/24 History (formulary)] polyethylene glycoL 3350 [Miralax] 17 gm PO DAILY 06/25/24 06/25/24 History Allergies Allergy/AdvReac Type Severity Reaction Status Date / Time No Known Allergies Allergy Verified 06/25/24 16:04 Physical Exam Vitals: Vital Signs Temp Pulse Resp BP Pulse Ox 06/26/24 08:03 91 L 06/26/24 06:54 70 18 151/72 93 L 06/26/24 01:30 68 18 157/74 95 06/25/24 22:59 61 12 141/71 99 06/25/24 19:22 66 18 146/70 99 06/25/24 18:00 69 18 145/72 98 06/25/24 16:20 71 20 135/66 92 L 06/25/24 16:00 98.1 F 70 18 145/62 90 L Intake and Output 06/25/24 06/26/24 06/26/24 22:59 06:59 14:59 Other: Weight 79.379 kg Results CBC & Chem 7: 06/26/24 08:17 06/26/24 08:17 Labs: Abnormal Lab Results - Last 24 Hours (Table) 06/25/24 06/25/24 06/25/24 Range/Units 16:36 16:36 16:36 RBC 2.94 L (4.30-5.90) m/uL Hgb 8.7 L (13.0-17.5) gm/dL Hct 28.9 L (39.0-53.0) % MCHC 29.9 L (31.0-37.0) g/dL RDW 19.5 H (11.5-15.5) % Lymphocytes # 0.7 L (1.0-4.8) k/uL PT 13.6 H (10.0-12.5) sec INR 1.3 H (<1.2) APTT 30.7 H (22.0-30.0) sec D-Dimer 1.90 H (<0.60) mg/L FEU Chloride 97 L (98-107) mmol/L Carbon Dioxide 35 H (22-30) mmol/L BUN 21 H (9-20) mg/dL Creatinine 4.04 H (0.66-1.25) mg/dL Glucose 117 H (74-99) mg/dL 06/26/24 06/26/24 Range/Units 08:17 08:17 RBC 3.02 L (4.30-5.90) m/uL Hgb 9.0 L (13.0-17.5) gm/dL Hct 30.0 L (39.0-53.0) % MCHC 30.1 L (31.0-37.0) g/dL RDW 19.6 H (11.5-15.5) % Lymphocytes # 0.9 L (1.0-4.8) k/uL PT (10.0-12.5) sec INR (<1.2) APTT (22.0-30.0) sec D-Dimer (<0.60) mg/L FEU Chloride 97 L (98-107) mmol/L Carbon Dioxide 31 H (22-30) mmol/L BUN 26 H (9-20) mg/dL Creatinine 4.87 H (0.66-1.25) mg/dL Glucose (74-99) mg/dL
--- NOTE | 2024-06-26 13:50 | XR ---
EXAMINATION TYPE: XR chest 1V portable DATE OF EXAM: 06/26/2024 1:29 PM CLINICAL INDICATION: Male, 79 years old with history of post thoracentesis; COMPARISON: Chest radiographs from 05/02/2024 TECHNIQUE: XR chest 1V portable Frontal view of the chest. FINDINGS: Lungs/Pleura: Thickening of the costophrenic angles remains. There is no evidence of Focal consolidat ion, or pneumothorax. Pulmonary vascularity: Pulmonary vascular congestion. Heart/mediastinum: Cardiomediastinal silhouette is unremarkable. Two lead cardiac conduction device o verlying the left hemithorax with lead tips projecting over the right ventricle and right atrium. Ward nt graft noted within the left axilla/upper chest. Musculoskeletal: No acute osseous pathology. Other findings: None IMPRESSION: 1. Decrease in right pleural effusion with persistent small pleural effusions bilaterally. 2. Scattered airspace opacities throughout the lungs. 3. Mild pulmonary edema. [facility], , 06/26/2024 1:48 PM
[2024-06-26 14:21] LABS: Glucose,Whole Blood 104 mg/dL (70-110)
[2024-06-26] MEDS: SEVELAMER 800 MG TAB PO SCH (16:45)
[2024-06-26] MEDS: APIXABAN 2.5 MG TABLET PO SCH (17:38)
[2024-06-26] MEDS: SILDENAFIL 20 MG TAB PO SCH (18:26)
--- NOTE | 2024-06-26 20:07 | PCN ---
PROCEDURE NOTE PROCEDURE: Right-sided thoracentesis. PREOPERATIVE DIAGNOSIS: Right pleural effusion. POSTOPERATIVE DIAGNOSIS: Right pleural effusion. OPERATORS: Dr. Churchill, Dr. Hussein, and Dr. Wayne. DESCRIPTION OF PROCEDURE: There was informed consent and universal timeout. The right posterior chest was marked by ultrasound. 1100 cc of yellow fluid was removed from the right pleural space. The patient tolerated the procedure well. There was no immediate complication. The fluid will be sent for analysis including cytology, chemistry and microbiology. There was no immediate complication. A chest x-ray was ordered to rule out pneumothorax. Again the patient tolerated the procedure well without difficulty whatsoever. MMODL / IJN: [id number] /
[2024-06-27 02:39] LABS: Glucose, BF Source Pleural Fluid; Glucose, Body Fluid 104 mg/dL; LDH, Body Fluid Source Pleural Fluid; T. Protein, Body Fluid Source Pleural Fluid; Total Protein, Body Fluid 2410 mg/dL
[2024-06-27 04:12] LABS: Appearance,BF Clear (Clear)
[2024-06-27] MEDS: ASPIRIN 81 MG PO SCH (09:02)
[2024-06-27] MEDS: SENNOSIDES-DOCUSATE SODIUM 1 EACH TAB PO SCH (09:02)
[2024-06-27] MEDS: buPROPion XL 150 MG TAB.ER.24H PO SCH (09:02)
[2024-06-27] MEDS: ATORVASTATIN 20 MG TAB PO SCH (09:02)
--- NOTE | 2024-06-27 11:06 | P.PN ---
Subjective Progress Note Date: 06/27/24 Principal diagnosis: Pleural effusion. Pulmonary consult dated June 26, 2024. 79-year-old male who comes into the emergency room, on June 25, complaining of shortness of breath. The patient states that the shortness of breath has gotten worse over the last few days. The patient was seen in the emergency department, discovered to have a large right sided pleural effusion. We ended up seeing the patient in the emergency department, room #6. The patient had an elevated BNP. His CT scan was consistent with CHF. He is on 4 L of oxygen with saturations of 91%. He was getting saline at 75 cc an hour and I turned the fluid down to 20 cc an hour. Will plan on doing an ultrasound, to see if he has fluid, that can be drained via thoracentesis. He has a history of atrial fibrillation, heart murmur, kidney failure, on hemodialysis, previous pacemaker implantation, and cardiac stents for CAD. Current labs include a white count 7.5, hemoglobin 9, hematocrit 30, platelet count 303,000. Sodium 139, potassium 3.8, chlorides 97, CO2 31, BUN 26, creatinine 4.87. Troponins were 0.015, 0.017, and 0.021. N-terminal proBNP was 38,200. The patient's chest ultrasound showed a right-sided pleural effusion with a pocket size of 11.3 cm. Distance from the right skin surface to the fluid, was 1.3 cm. Progress note dated June 27, 2024. 79-year-old male who we saw in the emergency department yesterday. He was admitted with a right-sided pleural effusion. He had thoracentesis in the emergency department. He also received hemodialysis in the emergency department. He is seen today in room 377. He is on room air. He is not receiving any IV fluids. His fluid analysis turned out to be a transudate. 1100 cc of light yellow fluid was removed. He tolerated the procedure well. No new labs today. Objective - Vital Signs Vital signs: Vital Signs Temp 98.2 F 06/27/24 08:48 Pulse 85 06/27/24 08:49 Resp 19 06/27/24 08:48 BP 146/67 06/27/24 08:48 Pulse Ox 93 L 06/27/24 08:48 FiO2 Intake & Output 09/06/27/24 06/27/24 18:59 06:59 18:59 Intake Total 130 520 250 Output Total 4500 Balance 130 -3980 250 Weight 79.379 kg 69.6 kg Intake: IV 10 20 10 Invasive Line 1 10 20 10 Oral 120 240 Hemodialysis 500 Output: Hemodialysis 2500 Hemodialysis Net Amount 2000 Other: # Voids 0 1 # Bowel Movements 1 1 - Exam No acute distress, oriented 3. Currently on room air. No respiratory distress. HEENT examination is grossly unremarkable. Mucous membranes are moist. No oral lesions. Neck supple. Full range of motion. No adenopathy thyromegaly or neck vein distention. Cardiovascular examination reveals regular rhythm rate. S1-S2 normal. No S3 or S4. No discernible murmur noted. Lungs reveal slightly diminished breath sounds at the right base. Slight dullness at the right base and percussion. The left lung is clear. No adventitious lung sounds. Abdomen soft bowel sounds are heard. No masses or tenderness. Extremities are intact. No cyanosis clubbing or edema. Skin is without rash or lesion. Neurologic examination is brief but nonfocal. - Labs CBC & Chem 7: 06/26/24 08:17 06/26/24 08:17 Labs: Abnormal Lab Results - Last 24 Hours (Table) 06/26/24 Range/Units 08:17 Procalcitonin 0.53 H (0.02-0.50) ng/mL Assessment and Plan Assessment: Acute shortness of breath, secondary to large right-sided pleural effusion. Suspect congestive heart failure. End-stage renal disease, currently on 3 times a week hemodialysis. History of hyperlipidemia. History of hypertension. History of atrial fibrillation. History of cataracts. Previous pacemaker implantation. CAD with previous stent placement. Plan: Plan dated June 26, 2024. The patient has a large right-sided pleural effusion. Will plan on doing a thoracentesis sometime today. Additional recommendations and suggestions are forthcoming. The fluid will be sent for analysis. No additional recommendations are made. Labs, x-rays, and medications are reviewed. Plan dated June 27, 2024. The patient is doing well. He is on room air. He had dialysis yesterday. He also had a right sided thoracentesis. 1100 cc of transudative fluid was removed. It was sent to the laboratory for analysis. Additional recommendations and suggestions are forthcoming. From my perspective, the patient could be considered for possible discharge. His respiratory status is much more stable. Time with Patient: Less than 30
--- NOTE | 2024-06-27 13:42 | P.PN ---
Subjective Progress Note Date: 06/27/24 patient 79-year-old gentleman with past medical history significant for end- stage renal disease, diastolic CHF and moderate to severe mitral and tricuspid regurgitation and A-fib on Coumadin who presented to the ER because of worsening shortness of breath. Patient stated he was recently treated for pneumonia and was sent to rehab. Patient stated that ever since his discharge from rehab he is noticing that has been more short of breath. Shortness of breath is at rest as on exertion. Denies any chest pain. Denies any palpitations. There is no complaint of fever or chills. Patient is complaining of increasing lethargy and weakness. Because of the symptoms, patient presented to the ER Initial lab work done in the ER showed W6.1, hemoglobin 8.7, platelet count 391, D-dimer 1.90, sodium 141, potassium 3.7, BUN 21, creatinine 4.04 glucose is 117 troponin 0.015 proBNP 69021 EKG done in the ER showed heart rate of 68, no ST segment elevation or depression seen, no T-wave inversions seen. CTA chest done showed no PE, showed groundglass opacities of the lung parenchyma with scattered patchy groundglass changes may lead to pulmonary edema versus developing acute infection/inflammatory process, showed cardiomegaly, cirrhotic morphology of the liver, cholelithiasis. Left renal lesion 4.6 cm in size outpatient CT/MRI abdomen recommended Patient admitted to internal medicine service 06/27. Patient seen and examined. Status post right-sided thoracentesis with removal of 1100 mL of fluid. Complaining of shortness of breath on exertion. REVIEW OF SYSTEMS: CONSTITUTIONAL: No fever, no malaise,. CARDIOVASCULAR: No chest pain, no palpitations, no syncope. PULMONARY: As mentioned above GASTROINTESTINAL: No diarrhea, no nausea, no vomiting, no abdominal pain. NEUROLOGICAL: No headaches, no weakness, PHYSICAL EXAMINATION: GENERAL: The patient is alert and oriented x3, not in any acute distress. Well developed, well nourished. HEENT: Pupils are round and equally reacting to light. EOMI. No scleral icterus. No conjunctival pallor. Normocephalic, atraumatic. No pharyngeal erythema. No thyromegaly. CARDIOVASCULAR: S1 and S2 present. No murmurs, rubs, or gallops. PULMONARY: Diminished breath sound at the bases bilaterally, no wheezing or crackles. ABDOMEN: Soft, nontender, nondistended, normoactive bowel sounds. No palpable organomegaly. MUSCULOSKELETAL: No joint swelling or deformity. EXTREMITIES: No cyanosis, clubbing, or pedal edema. NEUROLOGICAL: Gross neurological examination did not reveal any focal deficits. SKIN: No rashes. Assessment and plan End-stage renal disease on hemodialysis Acute hypoxic respiratory failure Right-sided pleural effusion Chronic persistent A-fib Acute on chronic CHF with diastolic ejection fraction 50% Moderate to severe mitral regurgitation and tricuspid regurgitation Chronic anemia Monitor vital signs Monitor CBC Monitor CMP Continue telemetry monitoring Strict I's and O's Daily weights Low potassium diet Continue breathing treatments Status post right-sided thoracentesis with removal of 1100 mL of fluid Nephrology following Pulmonology following Labs and medication were reviewed.. Continue same treatment. Continue with symptomatic treatment. Resume home medication. Monitor labs and vitals. DVT and GI prophylaxis. Further recommendations as per clinical course of the patient Dictation was produced using [employer] dictation software. please excuse any grammatical, word or spelling errors. Objective - Vital Signs Vital signs: Vital Signs Temp 98.2 F 06/27/24 08:48 Pulse 85 06/27/24 08:48 Resp 19 06/27/24 08:48 BP 146/67 06/27/24 08:48 Pulse Ox 93 L 06/27/24 08:48 FiO2 Intake & Output 06/26/24 06/27/24 06/27/24 18:59 06:59 18:59 Intake Total 130 520 250 Output Total 4500 Balance 130 -3980 250 Weight 79.379 kg 69.6 kg Intake: IV 10 20 10 Invasive Line 1 10 20 10 Oral 120 240 Hemodialysis 500 Output: Hemodialysis 2500 Hemodialysis Net Amount 2000 Other: # Voids 0 1 # Bowel Movements 1 1 - Labs CBC & Chem 7: 06/26/24 08:17 06/26/24 08:17 Labs: Abnormal Lab Results - Last 24 Hours (Table) 06/26/24 Range/Units 08:17 Procalcitonin 0.53 H (0.02-0.50) ng/mL
--- NOTE | 2024-06-27 14:24 | P.PN ---
Subjective Progress Note Date: 06/27/24 Patient seen in follow-up for ESRD. Had HD yesterday no issues. Still feels short of breath. Patient is awake, comfortable, alert oriented 3. No acute distress. Examination of the heart S1 and S2 Examination of the lungs bilateral breath sounds are heard Abdomen is soft nontender Examination of lower extremities shows no edema Objective - Vital Signs Vital signs: Vital Signs Temp 98.2 F 06/27/24 08:48 Pulse 85 06/27/24 08:49 Resp 19 06/27/24 08:48 BP 146/67 06/27/24 08:48 Pulse Ox 93 L 06/27/24 08:48 FiO2 Intake & Output 06/26/24 06/27/24 06/27/24 18:59 06:59 18:59 Intake Total 130 520 250 Output Total 4500 Balance 130 -3980 250 Weight 79.379 kg 69.6 kg Intake: IV 10 20 10 Invasive Line 1 10 20 10 Oral 120 240 Hemodialysis 500 Output: Hemodialysis 2500 Hemodialysis Net Amount 2000 Other: # Voids 0 1 # Bowel Movements 1 1 - Labs CBC & Chem 7: 06/26/24 08:17 06/26/24 08:17 Labs: Abnormal Lab Results - Last 24 Hours (Table) 06/26/24 Range/Units 08:17 Procalcitonin 0.53 H (0.02-0.50) ng/mL Assessment and Plan Assessment: 1. End-stage renal disease on hemodialysis on Saturday schedule 2 Volume overload 3. CK D mineral bone disorder 4. Hypertension, volume sensitive 5. History of fall and fracture of left leg in April 2024 Plan: Hemodialysis and thoracentesis completed yesterday. Continue Renvela with meals. Continue HD MWF schedule
[2024-06-28 08:43] LABS: ALT 7 U/L (4-49); AST 15 U/L (17-59); African American GFR (CKD) 11 (>60 ml/min/1.73 sqM); Albumin 3.1 g/dL (3.5-5.0); Alkaline Phosphatase 90 U/L (38-126); Anion Gap 7 mmol/L; Blood Urea Nitrogen 33 mg/dL (9-20); Calcium 9.2 mg/dL (8.4-10.2); Carbon Dioxide 31 mmol/L (22-30); Chloride 96 mmol/L (98-107); Glucose 96 mg/dL (74-99); Non-African American GFR(CKD) 9 (>60 ml/min/1.73 sqM); Potassium 4.2 mmol/L (3.5-5.1); Sodium 134 mmol/L (137-145); Total Bilirubin 0.5 mg/dL (0.2-1.3); Total Protein 5.6 g/dL (6.3-8.2)
[2024-06-28 09:08] LABS: Anisocytosis Slight; Basophils % (A) 0 %; Eosinophils # (A) 0.2 k/uL (0-0.7); Eosinophils % (A) 2 %; HCT 21.9 % (39.0-53.0); Hypochromasia Marked; Lymphocytes # (A) 0.9 k/uL (1.0-4.8); Lymphocytes % (A) 13 %; MCH 29.3 pg (25.0-35.0); MCHC 30.4 g/dL (31.0-37.0); MCV 96.4 fL (80.0-100.0); Macrocytosis Slight; Mean Platelet Volume 7.7; Monocytes # (A) 0.7 k/uL (0-1.0); Monocytes % (A) 9 %; Neutrophils # (A) 5.2 k/uL (1.3-7.7); Neutrophils % (A) 72 %; Platelet Count 235 k/uL (150-450); RBC 2.27 m/uL (4.30-5.90); RDW 18.8 % (11.5-15.5); WBC 7.2 k/uL (3.8-10.6)
[2024-06-28 09:12] LABS: HGB 6.7 gm/dL (13.0-17.5)
[2024-06-28 10:37] LABS: Anisocytosis Slight; Basophils % (A) 0 %; Eosinophils # (A) 0.2 k/uL (0-0.7); Eosinophils % (A) 2 %; HCT 24.2 % (39.0-53.0); HGB 7.4 gm/dL (13.0-17.5); Hypochromasia Marked; Lymphocytes # (A) 0.8 k/uL (1.0-4.8); Lymphocytes % (A) 9 %; MCH 29.9 pg (25.0-35.0); MCHC 30.6 g/dL (31.0-37.0); MCV 97.8 fL (80.0-100.0); Macrocytosis Slight; Mean Platelet Volume 7.5; Monocytes # (A) 0.6 k/uL (0-1.0); Monocytes % (A) 7 %; Neutrophils # (A) 7.1 k/uL (1.3-7.7); Neutrophils % (A) 80 %; Platelet Count 267 k/uL (150-450); RBC 2.48 m/uL (4.30-5.90); RDW 19.7 % (11.5-15.5); WBC 8.8 k/uL (3.8-10.6)
--- NOTE | 2024-06-28 11:53 | P.PN ---
Subjective Progress Note Date: 06/28/24 Principal diagnosis: Pleural effusion. Pulmonary consult dated June 26, 2024. 79-year-old male who comes into the emergency room, on June 25, complaining of shortness of breath. The patient states that the shortness of breath has gotten worse over the last few days. The patient was seen in the emergency department, discovered to have a large right sided pleural effusion. We ended up seeing the patient in the emergency department, room #6. The patient had an elevated BNP. His CT scan was consistent with CHF. He is on 4 L of oxygen with saturations of 91%. He was getting saline at 75 cc an hour and I turned the fluid down to 20 cc an hour. Will plan on doing an ultrasound, to see if he has fluid, that can be drained via thoracentesis. He has a history of atrial fibrillation, heart murmur, kidney failure, on hemodialysis, previous pacemaker implantation, and cardiac stents for CAD. Current labs include a white count 7.5, hemoglobin 9, hematocrit 30, platelet count 303,000. Sodium 139, potassium 3.8, chlorides 97, CO2 31, BUN 26, creatinine 4.87. Troponins were 0.015, 0.017, and 0.021. N-terminal proBNP was 38,200. The patient's chest ultrasound showed a right-sided pleural effusion with a pocket size of 11.3 cm. Distance from the right skin surface to the fluid, was 1.3 cm. Progress note dated June 27, 2024. 79-year-old male who we saw in the emergency department yesterday. He was admitted with a right-sided pleural effusion. He had thoracentesis in the emergency department. He also received hemodialysis in the emergency department. He is seen today in room 377. He is on room air. He is not receiving any IV fluids. His fluid analysis turned out to be a transudate. 1100 cc of light yellow fluid was removed. He tolerated the procedure well. No new labs today. Progress note dated June 28, 2024. 79-year-old male seen today in room 377. The patient is currently on 4 L of oxygen. No IV fluids. The patient has hemodialysis planned on Saturday, Saturday, and Saturday. The patient had a right-sided thoracentesis performed in the emergency department. We removed 1100 cc of transudative fluid. He tolera nicole the procedure well. Current labs include a white count 8.8, hemoglobin 7.4, hematocrit 24.2, and platelet count 267,000. Sodium 134, potassium 4.2, chloride 96, CO2 31, BUN 33, creatinine 5.45. Procalcitonin level was 0.53. Objective - Vital Signs Vital signs: Vital Signs Temp 98.4 F 06/28/24 08:24 Pulse 68 06/28/24 08:25 Resp 18 06/28/24 08:24 BP 143/64 06/28/24 08:24 Pulse Ox 96 06/28/24 08:24 FiO2 Intake & Output 06/27/24 06/28/24 06/28/24 18:59 06:59 18:59 Intake Total 440 20 20 Balance 440 20 20 Weight 69.1 kg Intake: IV 20 20 20 Invasive Line 1 20 20 10 Invasive Line 3 10 Oral 420 Other: # Voids 1 0 # Bowel Movements 1 - Exam No acute distress, oriented 3. Currently on 4 L. No respiratory distress. HEENT examination is grossly unremarkable. Mucous membranes are moist. No oral lesions. Neck supple. Full range of motion. No adenopathy thyromegaly or neck vein d istention. Cardiovascular examination reveals regular rhythm rate. S1-S2 normal. No S3 or S4. No discernible murmur noted. Lungs reveal slightly diminished breath sounds at the right base. Slight dullness at the right base and percussion. The left lung is clear. No adventitious lung sounds. Saturation is 96% on 4 L. Abdomen soft bowel sounds are heard. No masses or tenderness. Extremities are intact. No cyanosis clubbing or edema. Skin is without rash or lesion. Neurologic examination is brief but nonfocal. - Labs CBC & Chem 7: 06/28/24 10:22 06/28/24 07:22 Labs: Abnormal Lab Results - Last 24 Hours (Table) 06/28/24 06/28/24 06/28/24 Range/Units 07: 07:22 10:22 RBC 2.27 L 2.48 L (4.30-5.90) m/uL Hgb 6.7 L* D 7.4 L (13.0-17.5) gm/dL Hct 21.9 L 24.2 L (39.0-53.0) % MCHC 30.4 L 30.6 L (31.0-37.0) g/dL RDW 18.8 H 19.7 H (11.5-15.5) % Lymphocytes # 0.9 L 0.8 L (1.0-4.8) k/uL Sodium 134 L (137-145) mmol/L Chloride 96 L (98-107) mmol/L Carbon Dioxide 31 H (22-30) mmol/L BUN 33 H (9-20) mg/dL Creatinine 5.45 H (0.66-1.25) mg/dL AST 15 L (17-59) U/L Total Protein 5.6 L (6.3-8.2) g/dL Albumin 3.1 L (3.5-5.0) g/dL Crossmatch 06/28/24 Range/Units 10:22 RBC (4.30-5.90) m/uL Hgb (13.0-17.5) gm/dL Hct (39.0-53.0) % MCHC (31.0-37.0) g/dL RDW (11.5-15.5) % Lymphocytes # (1.0-4.8) k/uL Sodium (137-145) mmol/L Chloride (98-107) mmol/L Carbon Dioxide (22-30) mmol/L BUN (9-20) mg/dL Creatinine (0.66-1.25) mg/dL AST (17-59) U/L Total Protein (6.3-8.2) g/dL Albumin (3.5-5.0) g/dL Crossmatch See Detail Microbiology - Last 24 Hours (Table) 06/26/24 13:00 Acid Fast Bacilli Smear - Preliminary Pleural Fluid 06/26/24 13:00 Gram Stain - Preliminary Pleural Fluid Body Fluid Culture - Preliminary Assessment and Plan Assessment: Acute shortness of breath, secondary to large right-sided pleural effusion. Suspect congestive heart failure. End-stage renal disease, currently on 3 times a week hemodialysis. History of hyperlipidemia. History of hypertension. History of atrial fibrillation. History of cataracts. Previous pacemaker implantation. CAD with previous stent placement. Plan: Plan dated June 26, 2024. The patient has a large right-sided pleural effusion. Will plan on doing a thoracentesis sometime today. Additional recommendations and suggestions are forthcoming. The fluid will be sent for analysis. No additional recommendations are made. Labs, x-rays, and medications are reviewed. Plan dated June 27, 2024. The patient is doing well. He is on room air. He had dialysis yesterday. He also had a right sided thoracentesis. 1100 cc of transudative fluid was removed. It was sent to the laboratory for analysis. Additional recommendations and suggestions are forthcoming. From my perspective, the patient could be considered for possible discharge. His respiratory status is much more stable. Plan dated June 28, 2024. The patient is now on 4 L. He did have a right sided thoracentesis. The fluid is transudative. Labs, x-rays, medications are reviewed. He is scheduled to have hemodialysis this week, Saturday, Saturday, and Saturday. We will continue to follow. Prognosis is guarded. I did mention to the patient that he may need thoracentesis in the future. Time with Patient: Less than 30
--- NOTE | 2024-06-28 12:02 | P.PN ---
Subjective Progress Note Date: 06/28/24 Patient seen in follow-up for ESRD. No new complaints. Patient is awake, comfortable, alert oriented 3. No acute distress. Examination of the heart S1 and S2 Examination of the lungs bilateral breath sounds are heard Abdomen is soft nontender Examination of lower extremities shows no edema Objective - Vital Signs Vital signs: Vital Signs Temp 98.4 F 06/28/24 08:24 Pulse 68 06/28/24 08:25 Resp 18 06/28/24 08:24 BP 143/64 06/28/24 08:24 Pulse Ox 96 06/28/24 08:24 FiO2 Intake & Output 06/27/24 06/28/24 06/28/24 18:59 06:59 18:59 Intake Total 440 20 10 Balance 440 20 10 Weight 69.1 kg Intake: IV 20 20 10 Invasive Line 1 20 20 10 Oral 420 Other: # Voids 1 0 # Bowel Movements 1 - Labs CBC & Chem 7: 06/28/24 10:22 06/28/24 07:22 Labs: Abnormal Lab Results - Last 24 Hours (Table) 06/28/24 06/28/24 Range/Units 07:22 07:22 RBC 2.27 L (4.30-5.90) m/uL Hgb 6.7 L* D (13.0-17.5) gm/dL Hct 21.9 L (39.0-53.0) % MCHC 30.4 L (31.0-37.0) g/dL RDW 18.8 H (11.5-15.5) % Lymphocytes # 0.9 L (1.0-4.8) k/uL Sodium 134 L (137-145) mmol/L Chloride 96 L (98-107) mmol/L Carbon Dioxide 31 H (22-30) mmol/L BUN 33 H (9-20) mg/dL Creatinine 5.45 H (0.66-1.25) mg/dL AST 15 L (17-59) U/L Total Protein 5.6 L (6.3-8.2) g/dL Albumin 3.1 L (3.5-5.0) g/dL Microbiology - Last 24 Hours (Table) 06/26/24 13:00 Acid Fast Bacilli Smear - Preliminary Pleural Fluid 06/26/24 13:00 Gram Stain - Preliminary Pleural Fluid Body Fluid Culture - Preliminary Assessment and Plan Assessment: 1. End-stage renal disease on hemodialysis on Saturday schedule 2 Volume overload 3. CK D mineral bone disorder 4. Hypertension, volume sensitive 5. History of fall and fracture of left leg in April 2024 Plan: Hemodialysis and thoracentesis completed 06/26. Continue Renvela with meals. Continue HD MWF schedule
[2024-06-28 13:01] LABS: % Iron Saturation 9.68 (15.00-50.00)
--- NOTE | 2024-06-28 13:54 | P.PN ---
Subjective Progress Note Date: 06/28/24 patient 79-year-old gentleman with past medical history significant for end- stage renal disease, diastolic CHF and moderate to severe mitral and tricuspid regurgitation and A-fib on Coumadin who presented to the ER because of worsening shortness of breath. Patient stated he was recently treated for pneumonia and was sent to rehab. Patient stated that ever since his discharge from rehab he is noticing that has been more short of breath. Shortness of breath is at rest as on exertion. Denies any chest pain. Denies any palpitations. There is no complaint of fever or chills. Patient is complaining of increasing lethargy and weakness. Because of the symptoms, patient presented to the ER Initial lab work done in the ER showed W6.1, hemoglobin 8.7, platelet count 391, D-dimer 1.90, sodium 141, potassium 3.7, BUN 21, creatinine 4.04 glucose is 117 troponin 0.015 proBNP 72230 EKG done in the ER showed heart rate of 68, no ST segment elevation or depression seen, no T-wave inversions seen. CTA chest done showed no PE, showed groundglass opacities of the lung parenchyma with scattered patchy groundglass changes may lead to pulmonary edema versus developing acute infection/inflammatory process, showed cardiomegaly, cirrhotic morphology of the liver, cholelithiasis. Left renal lesion 4.6 cm in size outpatient CT/MRI abdomen recommended Patient admitted to internal medicine service 06/27. Patient seen and examined. Status post right-sided thoracentesis with removal of 1100 mL of fluid. Complaining of shortness of breath on exertion. 06/28. Patient seen and examined. Blood work done this morning showed WBC 7.2, hemoglobin 6.7, sodium 134, potassium 4.2, BUN 33, creatinine 5.45. Ordered stat repeat hemoglobin which showed 7.4. REVIEW OF SYSTEMS: CONSTITUTIONAL: No fever, no malaise,. CARDIOVASCULAR: No chest pain, no palpitations, no syncope. PULMONARY: As mentioned above GASTROINTESTINAL: No diarrhea, no nausea, no vomiting, no abdominal pain. NEUROLOGICAL: No headaches, no weakness, PHYSICAL EXAMINATION: GENERAL: The patient is alert and oriented x3, not in any acute distress. Well developed, well nourished. HEENT: Pupils are round and equally reacting to light. EOMI. No scleral icterus. No conjunctival pallor. Normocephalic, atraumatic. No pharyngeal erythema. No thyromegaly. CARDIOVASCULAR: S1 and S2 present. No murmurs, rubs, or gallops. PULMONARY: Diminished breath sound at the bases bilaterally, no wheezing or crackles. ABDOMEN: Soft, nontender, nondistended, normoactive bowel sounds. No palpable organomegaly. MUSCULOSKELETAL: No joint swelling or deformity. EXTREMITIES: No cyanosis, clubbing, or pedal edema. NEUROLOGICAL: Gross neurological examination did not reveal any focal deficits. SKIN: No rashes. Assessment and plan End-stage renal disease on hemodialysis Acute hypoxic respiratory failure Right-sided pleural effusion Chronic persistent A-fib Acute on chronic CHF with diastolic ejection fraction 50% Moderate to severe mitral regurgitation and tricuspid regurgitation Chronic anemia Monitor vital signs Monitor CBC Monitor CMP Continue telemetry monitoring Strict I's and O's Daily weights Low potassium diet Ordered anemia workup and FOBT Continue breathing treatments Status post right-sided thoracentesis with removal of 1100 mL of fluid Nephrology following Pulmonology following Labs and medication were reviewed.. Continue same treatment. Continue with symptomatic treatment. Resume home medication. Monitor labs and vitals. DVT and GI prophylaxis. Further recommendations as per clinical course of the patie nt Dictation was produced using [employer] dictation software. please excuse any grammatical, word or spelling errors. Objective - Vital Signs Vital signs: Vital Signs Temp 98.4 F 06/28/24 08:24 Pulse 68 06/28/24 08:24 Resp 18 06/28/24 08:24 BP 143/64 06/28/24 08:24 Pulse Ox 96 06/28/24 08:24 FiO2 Intake & Output 06/27/24 06/28/24 06/28/24 18:59 06:59 18:59 Intake Total 440 20 10 Balance 440 20 10 Weight 69.1 kg Intake: IV 20 20 10 Invasive Line 1 20 20 10 Oral 420 Other: # Voids 1 0 # Bowel Movements 1 - Labs CBC & Chem 7: 06/28/24 10:22 06/28/24 07:22 Labs: Abnormal Lab Results - Last 24 Hours (Table) 06/28/24 06/28/24 Range/Units 07:22 07:22 RBC 2.27 L (4.30-5.90) m/uL Hgb 6.7 L* D (13.0-17.5) gm/dL Hct 21.9 L (39.0-53.0) % MCHC 30.4 L (31.0-37.0) g/dL RDW 18.8 H (11.5-15.5) % Lymphocytes # 0.9 L (1.0-4.8) k/uL Sodium 134 L (137-145) mmol/L Chloride 96 L (98-107) mmol/L Carbon Dioxide 31 H (22-30) mmol/L BUN 33 H (9-20) mg/dL Creatinine 5.45 H (0.66-1.25) mg/dL AST 15 L (17-59) U/L Total Protein 5.6 L (6.3-8.2) g/dL Albumin 3.1 L (3.5-5.0) g/dL Microbiology - Last 24 Hours (Table) 06/26/24 13:00 Acid Fast Bacilli Smear - Preliminary Pleural Fluid 06/26/24 13:00 Gram Stain - Preliminary Pleural Fluid Body Fluid Culture - Preliminary
[2024-06-28] MEDS: ZINC OXIDE PASTE (Z-GUARD) 1 APPLIC TOPICAL PRN (15:29)
[2024-06-29] MEDS ORDERED: FUROSEMIDE 10 MG/ML 2 ML VIAL IV PRN (09:25)
--- NOTE | 2024-06-29 11:06 | P.PN ---
Subjective Patient is seen in follow-up for end-stage renal disease. He is maintained on hemodialysis on Saturday schedule. Resting in bed. Hemoglobin 7.4 yesterday. No active complaints. Vital signs are stable. General: No acute distress. HEENT: Head exam is unremarkable. Cut the LUNGS: No audible rhonchi or wheezes. HEART: Rate and Rhythm are regular. ABDOMEN: Nontender. EXTREMITITES: Trace edema. Objective - Vital Signs Vital signs: Vital Signs Temp 98 F 06/29/24 08:00 Pulse 77 06/29/24 08:00 Resp 18 06/29/24 08:00 BP 131/58 06/29/24 08:00 Pulse Ox 92 L 06/29/24 08:00 FiO2 Intake & Output 06/28/24 06/29/24 06/29/24 18:59 06:59 18:59 Intake Total 1350 240 Balance 1350 240 Weight 73.5 kg Intake: IV 30 Invasive Line 1 10 Invasive Line 3 20 Oral 1320 240 Other: # Voids 1 1 # Bowel Movements 1 - Labs CBC & Chem 7: 06/28/24 10:22 06/28/24 07:22 Labs: Abnormal Lab Results - Last 24 Hours (Table) 06/28/24 06/28/24 Range/Units 10:22 10:22 Iron 24 L (65-175) UG/DL % Saturation 9.68 L (15.00-50.00) Transferrin 177.0 L (204.0-354.0) mg/dL Ferritin 1267.0 H (22.0-322.0) ng/mL Crossmatch See Detail Microbiology - Last 24 Hours (Table) 06/26/24 13:00 Gram Stain - Preliminary Pleural Fluid Body Fluid Culture - Preliminary Assessment and Plan Plan: Assessment: 1. End-stage renal disease maintained on hemodialysis on Saturday schedule. 2. Volume overload. Status post right thoracentesis with 1.1 L drained June 25, 2024. Transudative. 3. Acute blood loss anemia status post blood transfusion this admission. Hemoglobin 7.4 as of yesterday. Iron deficiency noted. 4. Chronic kidney disease mineral bone disease maintained on Renvela. Plan: Hemodialysis today. Add Aranesp. Add IV iron.
[2024-06-29 11:52] LABS: Anisocytosis Slight; Basophils % (A) 0 %; Eosinophils # (A) 0.1 k/uL (0-0.7); Eosinophils % (A) 2 %; HCT 21.2 % (39.0-53.0); Hypochromasia Marked; Lymphocytes # (A) 0.6 k/uL (1.0-4.8); Lymphocytes % (A) 8 %; MCH 30.4 pg (25.0-35.0); MCHC 31.3 g/dL (31.0-37.0); MCV 97.1 fL (80.0-100.0); Macrocytosis Slight; Mean Platelet Volume 7.9; Monocytes # (A) 0.6 k/uL (0-1.0); Monocytes % (A) 7 %; Neutrophils # (A) 6.2 k/uL (1.3-7.7); Neutrophils % (A) 82 %; Platelet Count 222 k/uL (150-450); RBC 2.18 m/uL (4.30-5.90); RDW 19.2 % (11.5-15.5); WBC 7.6 k/uL (3.8-10.6)
[2024-06-29 11:57] LABS: HGB 6.6 gm/dL (13.0-17.5)
[2024-06-29] MEDS: SODIUM FERRIC GLUCONAT-SUCROSE 125 MG in SODIUM CHLORIDE 0.9% 100 ML IVPB SCH (12:04)
[2024-06-29] MEDS: DARBEPOETIN ALFA 40 MCG/0.4 ML SYRINGE SQ SCH (12:04)
--- NOTE | 2024-06-29 12:47 | XR ---
EXAMINATION TYPE: XR chest 1V portable DATE OF EXAM: 06/29/2024 COMPARISON: 06/26/2024 HISTORY: Postoperative basis TECHNIQUE: Single frontal view of the chest is obtained. FINDINGS: Moderate right pleural effusion. No pneumothorax. Left lung clear. Heart is enlarged. Card iac device. Diffuse osteopenia and arthropathy of the shoulders. Vascular metallic stents noted on th e left. There IMPRESSION: 1. Moderate right pleural effusion and consolidation. No sizable pneumothorax. [facility], , 06/29/2024 12:45 PM
--- NOTE | 2024-06-29 14:17 | P.PN ---
Subjective Progress Note Date: 06/29/24 This is an 79-year-old gentleman with past medical history significant for end- stage renal disease, anemia, hypercoagulopathy, atrial fibrillation, valvular heart disease, permanent pacemaker, CAD and multiple other medical issues admitted with acute hypoxic respiratory failure, status post right-sided tho racentesis-transudative- for large right-sided pleural effusion, suspecting acute CHF exacerbation. Cytology pending. denies chills or sweats. Reports he feels totally exhausted. Hemoglobin 6.7, 7.4 with repeat hemoglobin pending. denies chest pain or palpitations. Maintaining O2 sats in the low 90s on 4 L nasal cannula. Chest x-ray pending. Afebrile. Objective - Vital Signs Vital signs: Vital Signs Temp 97.8 F 06/29/24 12:00 Pulse 71 06/29/24 12:00 Resp 16 06/29/24 12:00 BP 135/71 06/29/24 12:00 Pulse Ox 94 L 06/29/24 12:00 FiO2 Intake & Output 06/28/24 06/29/24 06/29/24 18:59 06:59 18:59 Intake Total 1350 240 Balance 1350 240 Weight 73.5 kg Intake: IV 30 Invasive Line 1 10 Invasive Line 3 20 Oral 1320 240 Other: # Voids 1 1 # Bowel Movements 1 - Exam PHYSICAL EXAM: VITAL SIGNS: [As above] GENERAL: Fatigued ,alert and oriented x 3, sitting up at side of bed, no acute distress. HEENT: Normocephalic, conjunctivae normal. eyes normal. Sclera anicteric. NECK: Supple, no JVD. CARDIOVASCULAR: S1, S2 regular. Systolic murmur RESPIRATION: Unlabored, equal air entry ,breath sounds diminished, right base dull. ABDOMEN: Soft, nondistended, nontender, no guarding, no rigidity. +BS EXTR: Warm and dry, no edema, no clubbing or cyanosis. NERVOUS SYSTEM: Cranial N 2-12 grossly normal. No focal deficits. Strength and sensation grossly intact. Skin: Warm and dry, no rash - Labs CBC & Chem 7: 06/29/24 11:12 06/28/24 07:22 Labs: Abnormal Lab Results - Last 24 Hours (Table) 06/28/24 06/29/24 Range/Units 10:22 11:12 RBC 2.18 L (4.30-5.90) m/uL Hgb 6.6 L* (13.0-17.5) gm/dL Hct 21.2 L (39.0-53.0) % RDW 19.2 H (11.5-15.5) % Lymphocytes # 0.6 L (1.0-4.8) k/uL Crossmatch See Detail Microbiology - Last 24 Hours (Table) 06/26/24 13:00 Gram Stain - Preliminary Pleural Fluid Body Fluid Culture - Preliminary Assessment and Plan Assessment: Acute shortness of breath secondary to large right-sided pleural effusion status post right-sided thoracentesis, fluid transudative. Acute blood loss anemia, 1 unit of packed RBCs ordered. Chronic iron deficient anemia. Chronic diastolic CHF End-stage renal disease on hemodialysis, history of cardiorenal syndrome. HD Saturday Chronic atrial fibrillation History of pacemaker implantation, complete heart block CAD Severe pulmonary hypertension Moderate to severe mitral regurgitation Moderate to severe tricuspid regurgitation Multivalvular heart disease including mild aortic stenosis Mild hepatic steatosis Plan: Continue on current medication resume ,monitoring and symptomatic treatment. 1 unit packed RBCs ordered for symptomatic anemia. Hemodialysis/UF today as per nephrology. PT/OT consulted. Prognosis guarded given multiple complex medical issues. The impression and plan of care has been dictated as directed. : I performed a history and examination of this patient, discussed the same with the dictator. I agree with the dictator's note ,documented as a scribe. Any additional findings or plans will be noted.
--- NOTE | 2024-06-29 17:59 | P.PN ---
Subjective Progress Note Date: 06/29/24 79-year-old male who comes into the emergency room, on June 25, complaining of shortness of breath. The patient states that the shortness of breath has gotten worse over the last few days. The patient was seen in the emergency department, discovered to have a large right sided pleural effusion. We ended up seeing the patient in the emergency department, room #6. The patient had an elevated BNP. His CT scan was consistent with CHF. He is on 4 L of oxygen with saturations of 91%. He was getting saline at 75 cc an hour and I turned the fluid down to 20 cc an hour. Will plan on doing an ultrasound, to see if he has fluid, that can be drained via thoracentesis. He has a history of atrial fibrillation, heart murmur, kidney failure, on hemodialysis, previous pacemaker implantation, and cardiac stents for CAD. Current labs include a white count 7.5, hemoglobin 9, hematocrit 30, platelet count 303,000. Sodium 139, potassium 3.8, chlorides 97, CO2 31, BUN 26, creatinine 4.87. Troponins were 0.015, 0.017, and 0.021. N-terminal proBNP was 38,200. The patient's chest ultrasound showed a right-sided pleural effusion with a pocket size of 11.3 cm. Distance from the right skin surface to the fluid, was 1.3 cm. Progress note dated June 27, 2024. 79-year-old male who we saw in the emergency department yesterday. He was admitted with a right-sided pleural effusion. He had thoracentesis in the emergency department. He also received hemodialysis in the emergency [facility]. He is seen today in room 377. He is on room air. He is not receiving any IV fluids. His fluid analysis turned out to be a transudate. 1100 cc of light yellow fluid was removed. He tolerated the procedure well. No new labs today. Progress note dated June 28, 2024. 79-year-old male seen today in room 377. The patient is currently on 4 L of oxygen. No IV fluids. The patient has hemodialysis planned on Saturday, Saturday, and Saturday. The patient had a right-sided thoracentesis performed in the emergency department. We removed 1100 cc of transudative fluid. He tolerated the procedure well. Current labs include a white count 8.8, hemoglobin 7.4, hematocrit 24.2, and platelet count 267,000. Sodium 134, potassium 4.2, chloride 96, CO2 31, BUN 33, creatinine 5.45. Procalcitonin level was 0.53. On today's evaluation of 06/29/2024, the patient is being seen for a follow-up. Patient has end-stage renal disease on hemodialysis. The patient also had right-sided pleural effusion for which thoracentesis was done on 06/26/2024 and a total of 1.1 L of pleural fluid was aspirated. Based on the fluid chemistry, this seems to be a transudate based on the low LDH and low protein. The patient remains on 4 L of oxygen by nasal cannula with a pulse ox of 97%. A repeat chest x-ray was done today and it shows a residual right-sided pleural effusion with some reaccumulation. The patient was seen by nephrology in follow-up. The patient will receive ultrafiltration as he is able to tolerate. Noted that he does have a chronic anemia and iron deficiency was noted. Blood work from today shows a hemoglobin of 6.6 with a white cell count of 7.6 and a platelet count of 222. The serum iron was 24. The BUN is 33 with a creatinine of 5.4 and a sodium levels at 134. Echocardiogram showed preserved LV function with moderate mitral stenosis and moderate mitral regurgitation and moderate degree of tricuspid regurgitation and severe pulmonary hypertension. CT of the chest was done on 06/25/2024 at time of admission showed pulm vas congestion and a moderate-sized right-sided pleural effusion along with cardiomegaly. Objective - Vital Signs Vital signs: Vital Signs Temp 98 F 06/29/24 08:00 Pulse 77 06/29/24 08:00 Resp 18 06/29/24 08:00 BP 131/58 06/29/24 08:00 Pulse Ox 92 L 06/29/24 08:00 FiO2 Intake & Output 06/28/24 06/29/24 06/29/24 18:59 06:59 18:59 Intake Total 1350 240 Balance 1350 240 Weight 73.5 kg Intake: IV 30 Invasive Line 1 10 Invasive Line 3 20 Oral 1320 240 Other: # Voids 1 1 # Bowel Movements 1 - Exam No acute distress, oriented 3. Currently on 4 L. No respiratory distress. HEENT examination is grossly unremarkable. Mucous membranes are moist. No oral lesions. Neck supple. Full range of motion. No adenopathy thyromegaly or neck vein dis tention. Cardiovascular examination reveals regular rhythm rate. S1-S2 normal. No S3 or S4. No discernible murmur noted. Lungs reveal slightly diminished breath sounds at the right base. Slight dullness at the right base and percussion. The left lung is clear. No adventitious lung sounds. Saturation is 96% on 4 L. Abdomen soft bowel sounds are heard. No masses or tenderness. Extremities are intact. No cyanosis clubbing or edema. Skin is without rash or lesion. Neurologic examination is brief but nonfocal. - Labs CBC & Chem 7: 06/29/24 11:12 06/28/24 07:22 Labs: Abnormal Lab Results - Last 24 Hours (Table) 06/28/24 06/28/24 Range/Units 10:22 10:22 Iron 24 L (65-175) UG/DL % Saturation 9.68 L (15.00-50.00) Transferrin 177.0 L (204.0-354.0) mg/dL Ferritin 1267.0 H (22.0-322.0) ng/mL Crossmatch See Detail Microbiology - Last 24 Hours (Table) 06/26/24 13:00 Gram Stain - Preliminary Pleural Fluid Body Fluid Culture - Preliminary Assessment and Plan Plan: Acute shortness of breath, secondary to large right-sided pleural effusion. The patient is postthoracentesis with removal of 1.1 L of transudative fluid from the right lung Valvular heart disease with moderate mitral and tricuspid regurgitation, preserved RV function End-stage renal disease, currently on 3 times a week hemodialysis. Acute on top of chronic anemia with a component of iron deficiency History of hyperlipidemia. History of hypertension. History of atrial fibrillation. History of cataracts. Previous pacemaker implantation. CAD with previous stent placement. Plan: Repeat chest x-ray from today shows a recommendation of right-sided pleural effusion. Continue hemodialysis with ultrafiltration. Will repeat thoracentesis if needed IV iron and Aranesp May benefit from packed RBC transfusion Titrate oxygen flow to maintain saturation above 90%, currently on 4 L Will continue to follow
[2024-06-30 10:24] LABS: Anisocytosis Slight; HCT 26.7 % (39.0-53.0); Hypochromasia Marked; MCH 29.2 pg (25.0-35.0); MCHC 30.4 g/dL (31.0-37.0); Macrocytosis Slight; Mean Platelet Volume 7.2; Platelet Count 277 k/uL (150-450); Poikilocytosis Slight; RBC 2.78 m/uL (4.30-5.90); RDW 18.2 % (11.5-15.5); WBC 7.4 k/uL (3.8-10.6)
[2024-06-30 10:31] LABS: HGB 8.1 gm/dL (13.0-17.5)
[2024-06-30 10:35] LABS: African American GFR (CKD) 14 (>60 ml/min/1.73 sqM); Anion Gap 11 mmol/L; Blood Urea Nitrogen 45 mg/dL (9-20); Calcium 9.5 mg/dL (8.4-10.2); Carbon Dioxide 29 mmol/L (22-30); Chloride 96 mmol/L (98-107); Glucose 122 mg/dL (74-99); Non-African American GFR(CKD) 12 (>60 ml/min/1.73 sqM); Potassium 3.7 mmol/L (3.5-5.1); Sodium 136 mmol/L (137-145)
--- NOTE | 2024-06-30 10:36 | P.PN ---
Subjective Patient is seen in follow-up for end-stage renal disease. He is maintained on hemodialysis on Saturday schedule. Resting in bed. Hemoglobin 8.1 today. Received blood transfusion this admission. No active bleeding. No active complaints. Vital signs are stable. General: No acute distress. HEENT: Head exam is unremarkable. On nasal cannula. LUNGS: No audible rhonchi or wheezes. HEART: Rate and Rhythm are regular. ABDOMEN: Nontender. EXTREMITITES: Trace edema. Objective - Vital Signs Vital signs: Vital Signs Temp 97.8 F 06/30/24 08:00 Pulse 85 06/30/24 08:00 Resp 20 06/30/24 08:00 BP 151/68 06/30/24 08:00 Pulse Ox 91 L 06/30/24 08:00 FiO2 Intake & Output 06/29/24 06/30/24 06/30/24 18:59 06:59 18:59 Intake Total 1300 10 Output Total 6750 1500 Balance -5450 -1500 10 Weight 70.1 kg Intake: IV 10 Invasive Line 3 10 Oral 240 Blood Product 310 Rc As-1 Unit 310 [id number] Hemodialysis 750 Output: Urine 1500 Hemodialysis 3750 Hemodialysis Net Amount 3000 Other: # Voids 1 # Bowel Movements 1 - Labs CBC & Chem 7: 06/30/24 10:00 06/28/24 07:22 Labs: Abnormal Lab Results - Last 24 Hours (Table) 06/28/24 06/29/24 06/30/24 Range/Units 10:22 11:12 10:00 RBC 2.18 L 2.78 L (4.30-5.90) m/uL Hgb 6.6 L* 8.1 L D (13.0-17.5) gm/dL Hct 21.2 L 26.7 L (39.0-53.0) % MCHC 30.4 L (31.0-37.0) g/dL RDW 19.2 H 18.2 H (11.5-15.5) % Lymphocytes # 0.6 L (1.0-4.8) k/uL Crossmatch See Detail Microbiology - Last 24 Hours (Table) 06/26/24 13:00 Gram Stain - Preliminary Pleural Fluid Body Fluid Culture - Preliminary Assessment and Plan Plan: Assessment: 1. End-stage renal disease maintained on hemodialysis on Saturday schedule. 2. Volume overload. Status post right thoracentesis with 1.1 L drained June 25, 2024. Transudative. 3. Acute blood loss anemia status post blood transfusion this admission. Hemoglobin 8.1 today. Iron deficiency noted. Receiving IV iron. On Aranesp. Hematology also following. 4. Chronic kidney disease mineral bone disease maintained on Renvela. Plan: Hemodialysis tomorrow. IV DDAVP x 1 dose today. Add torsemide 40 mg once daily.
[2024-06-30] MEDS: TORSEMIDE 20 MG TAB PO SCH (11:25)
[2024-06-30] MEDS: DESMOPRESSIN ACETATE 20 MCG in SODIUM CHLORIDE 0.9% 50 ML IVPB ONE (13:08)
--- NOTE | 2024-06-30 14:44 | P.PN ---
Subjective Progress Note Date: 06/30/24 79-year-old male who comes into the emergency room, on June 25, complaining of shortness of breath. The patient states that the shortness of breath has gotten worse over the last few days. The patient was seen in the emergency department, discovered to have a large right sided pleural effusion. We ended up seeing the patient in the emergency department, room #6. The patient had an elevated BNP. His CT scan was consistent with CHF. He is on 4 L of oxygen with saturations of 91%. He was getting saline at 75 cc an hour and I turned the fluid down to 20 cc an hour. Will plan on doing an ultrasound, to see if he has fluid, that can be drained via thoracentesis. He has a history of atrial fibrillation, heart murmur, kidney failure, on hemodialysis, previous pacemaker implantation, and cardiac stents for CAD. Current labs include a white count 7.5, hemoglobin 9, hematocrit 30, platelet count 303,000. Sodium 139, potassium 3.8, chlorides 97, CO2 31, BUN 26, creatinine 4.87. Troponins were 0.015, 0.017, and 0.021. N-terminal proBNP was 38,200. The patient's chest ultrasound showed a right-sided pleural effusion with a pocket size of 11.3 cm. Distance from the right skin surface to the fluid, was 1.3 cm. Progress note dated June 27, 2024. 79-year-old male who we saw in the emergency department yesterday. He was admitted with a right-sided pleural effusion. He had thoracentesis in the emergency department. He also received hemodialysis in the emergency [facility]. He is seen today in room 377. He is on room air. He is not receiving any IV fluids. His fluid analysis turned out to be a transudate. 1100 cc of light yellow fluid was removed. He tolerated the procedure well. No new labs today. Progress note dated June 28, 2024. 79-year-old male seen today in room 377. The patient is currently on 4 L of oxygen. No IV fluids. The patient has hemodialysis planned on Saturday, Saturday, and Saturday. The patient had a right-sided thoracentesis performed in the emergency department. We removed 1100 cc of transudative fluid. He tolerated the procedure well. Current labs include a white count 8.8, hemoglobin 7.4, hematocrit 24.2, and platelet count 267,000. Sodium 134, potassium 4.2, chloride 96, CO2 31, BUN 33, creatinine 5.45. Procalcitonin level was 0.53. On today's evaluation of 06/29/2024, the patient is being seen for a follow-up. Patient has end-stage renal disease on hemodialysis. The patient also had right-sided pleural effusion for which thoracentesis was done on 06/26/2024 and a total of 1.1 L of pleural fluid was aspirated. Based on the fluid chemistry, this seems to be a transudate based on the low LDH and low protein. The patient remains on 4 L of oxygen by nasal cannula with a pulse ox of 97%. A repeat chest x-ray was done today and it shows a residual right-sided pleural effusion with some reaccumulation. The patient was seen by nephrology in follow-up. The patient will receive ultrafiltration as he is able to tolerate. Noted that he does have a chronic anemia and iron deficiency was noted. Blood work from today shows a hemoglobin of 6.6 with a white cell count of 7.6 and a platelet count of 222. The serum iron was 24. The BUN is 33 with a creatinine of 5.4 and a sodium levels at 134. Echocardiogram showed preserved LV function with moderate mitral stenosis and moderate mitral regurgitation and moderate degree of tricuspid regurgitation and severe pulmonary hypertension. CT of the chest was done on 06/25/2024 at time of admission showed pulm vas congestion and a moderate-sized right-sided pleural effusion along with cardiomegaly. Last 06/30/2024, the patient is being seen for a follow-up. The patient is stable. No significant respiratory distress at this point in time. He is on 4 L of oxygen by nasal cannula with a pulse ox of 99 to 100%. Afebrile. Hemodynamically stable. As mentioned, the repeat chest x-ray showed a recurrence of the right-sided pleural effusion. Nevertheless, the patient is undergoing hemodialysis periodically and next session is tomorrow. He received a unit of packed RBC yesterday and hemoglobin is up to 8.1. WBC count is at 7.4. BUN is 45 with a creatinine of 4.29 and sodium levels of 136. The patient has no signs of any GI bleeding at this point in time. The plan is to undergo hemodialysis tomorrow. He was started on torsemide 40 mg 1 tablet a day. Nephrology is on the case. Objective - Vital Signs Vital signs: Vital Signs Temp 97.8 F 06/30/24 08:00 Pulse 85 06/30/24 08:00 Resp 20 06/30/24 08:00 BP 151/68 06/30/24 08:00 Pulse Ox 91 L 06/30/24 08:00 FiO2 Intake & Output 06/29/24 06/30/24 06/30/24 18:59 06:59 18:59 Intake Total 1300 10 Output Total 6750 1500 Balance -5450 -1500 10 Weight 70.1 kg Intake: IV 10 Invasive Line 3 10 Oral 240 Blood Product 310 Rc As-1 Unit 310 [id number] Hemodialysis 750 Output: Urine 1500 Hemodialysis 3750 Hemodialysis Net Amount 3000 Other: # Voids 1 # Bowel Movements 1 - Exam No acute distress, oriented 3. Currently on 4 L. No respiratory distress. HEENT examination is grossly unremarkable. Mucous membranes are moist. No oral lesions. Neck supple. Full range of motion. No adenopathy thyromegaly or neck vein distention. Cardiovascular examination reveals regular rhythm rate. S1-S2 normal. No S3 or S4. No discernible murmur noted. Lungs reveal slightly diminished breath sounds at the right base. Slight dullness at the right base and percussion. The left lung is clear. No adventitious lung sounds. Saturation is 96% on 4 L. Abdomen soft bowel sounds are heard. No masses or tenderness. Extremities are intact. No cyanosis clubbing or edema. Skin is without rash or lesion. Neurologic examination is brief but nonfocal. - Labs CBC & Chem 7: 06/30/24 10:00 06/30/24 10:00 Labs: Abnormal Lab Results - Last 24 Hours (Table) 06/28/24 06/29/24 06/30/24 Range/Units 10:22 11:12 10:00 RBC 2.18 L 2.78 L (4.30-5.90) m/uL Hgb 6.6 L* 8.1 L D (13.0-17.5) gm/dL Hct 21.2 L 26.7 L (39.0-53.0) % MCHC 30.4 L (31.0-37.0) g/dL RDW 19.2 H 18.2 H (11.5-15.5) % Lymphocytes # 0.6 L (1.0-4.8) k/uL Sodium (137-145) mmol/L Chloride (98-107) mmol/L BUN (9-20) mg/dL Creatinine (0.66-1.25) mg/dL Glucose (74-99) mg/dL Crossmatch See Detail 06/30/24 Range/Units 10:00 RBC (4.30-5.90) m/uL Hgb (13.0-17.5) gm/dL Hct (39.0-53.0) % MCHC (31.0-37.0) g/dL RDW (11.5-15.5) % Lymphocytes # (1.0-4.8) k/uL Sodium 136 L (137-145) mmol/L Chloride 96 L (98-107) mmol/L BUN 45 H (9-20) mg/dL Creatinine 4.29 H (0.66-1.25) mg/dL Glucose 122 H (74-99) mg/dL Crossmatch Microbiology - Last 24 Hours (Table) 06/26/24 13:00 Gram Stain - Preliminary Pleural Fluid Body Fluid Culture - Preliminary Assessment and Plan Plan: Acute shortness of breath, secondary to large right-sided pleural effusion. The patient is postthoracentesis with removal of 1.1 L of transudative fluid from the right lung, remains on oxygen at 4 L/min nasal cannula with pulse ox of 99 to 100%. Valvular heart disease with moderate mitral and tricuspid regurgitation, preserved RV function End-stage renal disease, currently on 3 times a week hemodialysis. Acute on top of chronic anemia with a component of iron deficiency , received a unit of packed RBC. No evidence of any GI bleed. History of hyperlipidemia. History of hypertension. History of atrial fibrillation. History of cataracts. Previous pacemaker implantation. CAD with previous stent placement. Plan: Repeat chest x-ray from today shows a recommendation of right-sided pleural effusion. Continue hemodialysis with ultrafiltration. Will repeat another chest x-ray in the morning. Will repeat thoracentesis if needed, if final decision will be done tomorrow IV iron and Aranesp Hemoglobin is stable Titrate oxygen flow to maintain saturation above 90%, currently on 4 L Torsemide 40 mg p.o. daily Will continue to follow
--- NOTE | 2024-06-30 14:52 | P.PN ---
Subjective Progress Note Date: 06/30/24 This is an 79-year-old gentleman with past medical history significant for end- stage renal disease, anemia, hypercoagulopathy, atrial fibrillation, valvular heart disease, permanent pacemaker, CAD and multiple other medical issues admitted with acute hypoxic respiratory failure, status post right-sided tho racentesis-transudative- for large right-sided pleural effusion, suspecting acute CHF exacerbation. Cytology pending. denies chills or sweats. Reports he feels totally exhausted. Hemoglobin 6.7, 7.4 with repeat hemoglobin pending. denies chest pain or palpitations. Maintaining O2 sats in the low 90s on 4 L nasal cannula. Chest x-ray pending. Afebrile. 06/30/2024 Received 1 unit of packed RBCs yesterday with hemoglobin currently 8.1, platelets 277. No active bleeding reported. slept well in bed without shortness of breath. Denies chest pain, palpitations. Reports nonproductive cough x 2 to 3 weeks. Denies lightheadedness dizziness. Has not yet ambulated. PT consult in place. Chest x-ray completed yesterday afternoon reporting moderate right pleural effusion and consolidation with no sizable pneumothorax. Maintaining O2 sat in the high 90s to 100% on 4 L nasal cannula. Pleural cytology from previous thoracentesis pending. afebrile, normal WBC. Objective - Vital Signs Vital signs: Vital Signs Temp 97.5 F L 06/30/24 11:22 Pulse 71 06/30/24 11:22 Resp 20 06/30/24 11:22 BP 144/61 06/30/24 11:22 Pulse Ox 100 06/30/24 11:22 FiO2 Intake & Output 06/29/24 06/30/24 06/30/24 18:59 06:59 18:59 Intake Total 1300 110 Output Total 6750 1500 Balance -5450 -1500 110 Weight 70.1 kg Intake: IV 10 Invasive Line 3 10 Intake, IV Titration 100 Amount Sodium Ferric Gluconat- 100 Sucrose 125 mg In Sodium Chloride 0.9% 100 ml @ 100 mls/hr IVPB DAILY [facility] Rx#:[id number] Oral 240 Blood Product 310 Rc As-1 Unit 310 [id number] Hemodialysis 750 Output: Urine 1500 Hemodialysis 3750 Hemodialysis Net Amount 3000 Other: # Voids 1 # Bowel Movements 1 - Exam PHYSICAL EXAM: VITAL SIGNS: [As above] GENERAL: Fatigued ,alert and oriented x 3, sitting up at side of bed, no acute distress. HEENT: Normocephalic, conjunctivae normal. eyes normal. Sclera anicteric. NECK: Supple, no JVD. CARDIOVASCULAR: S1, S2 regular. Systolic murmur RESPIRATION: Unlabored, equal air entry ,breath sounds diminished, right base dullness. ABDOMEN: Soft, nondistended, nontender, no guarding, no rigidity. +BS EXTR: Warm and dry, no edema, no clubbing or cyanosis. NERVOUS SYSTEM: Cranial N 2-12 grossly normal. No focal deficits. Strength and sensation grossly intact. Skin: Warm and dry, no rash - Labs CBC & Chem 7: 06/30/24 10:00 06/30/24 10:00 Labs: Abnormal Lab Results - Last 24 Hours (Table) 06/28/24 06/30/24 06/30/24 Range/Units 10:22 10:00 10:00 RBC 2.78 L (4.30-5.90) m/uL Hgb 8.1 L D (13.0-17.5) gm/dL Hct 26.7 L (39.0-53.0) % MCHC 30.4 L (31.0-37.0) g/dL RDW 18.2 H (11.5-15.5) % Sodium 136 L (137-145) mmol/L Chloride 96 L (98-107) mmol/L BUN 45 H (9-20) mg/dL Creatinine 4.29 H (0.66-1.25) mg/dL Glucose 122 H (74-99) mg/dL Crossmatch See Detail Microbiology - Last 24 Hours (Table) 06/26/24 13:00 Gram Stain - Preliminary Pleural Fluid Body Fluid Culture - Preliminary Assessment and Plan Assessment: Acute shortness of breath secondary to large right-sided pleural effusion status post right-sided thoracentesis, fluid transudative. Cytology pending. follow-up chest x-ray reporting moderate right pleural effusion Acute blood loss anemia, status posttransfusion 1 unit packed RBCs Chronic iron deficient anemia. Chronic diastolic CHF End-stage renal disease on hemodialysis, history of cardiorenal syndrome. HD Saturday Chronic atrial fibrillation History of pacemaker implantation, complete heart block CAD Severe pulmonary hypertension Moderate to severe mitral regurgitation Moderate to severe tricuspid regurgitation Multivalvular heart disease including mild aortic stenosis Mild hepatic steatosis Plan: Continue on current medication resume ,monitoring and symptomatic treatment. Repeat chest x-ray in a.m., potential repeat thoracentesis- pulmonary following. hemodialysis/UF tomorrow as per nephrology. Hematology consult in place regarding anemia. PT/OT. Prognosis guarded given multiple complex medical issues. The impression and plan of care has been dictated as directed. : I performed a history and examination of this patient, discussed the same with the dictator. I agree with the dictator's note ,documented as a scribe. Any additional findings or plans will be noted.
[2024-06-30] MEDS: BENZONATATE 100 MG CAP PO PRN (16:58)
--- NOTE | 2024-07-01 | P.CONS ---
History of Present Illness - Reason for Consult Consult date: 06/30/24 Anemia - History of Present Illness the patient is an 79-year-old white male, with multiple medical problems. He is known to our service for a history of a small MGUS, which she has been on follow-up for many years, previously with oncology in [place], and then more recently in our office with Dr. Foy. At his last visit in 11/30, labs showed no evidence of progression, with no detectable M proteins, and both light chains elevated with normal ratio. The patient has a known history of ESRD, on hemodialysis. he was admitted with significant volume overload, and right-sided pleural effusion, on CT angiogram and chest x-ray. He underwent thoracentesis, revealing date. At the time of admission hemoglobin was 8.4, and then declined in to the 7, and then into the 6 range, due to which the patient received blood transfusion. he was prescribed IV iron, and consult placed for further evaluation and recommendations. The patient denied any obvious bleeding. There is no documentation of the same in the EMR. Iron studies showed high ferritin in the 1200 range, stable compared to previous ferritin about 2 years ago. The patient is presumably on FAROOQ with dialysis. his hemoglobin in the office in 11/30 was in the 12-13 range. Review of multiple labs in the [facility] drop in hemoglobin in 05/29 when the patient had hip fracture. He also had a drop in hemoglobin and 04/29 when he was admitted with a left tibial fracture. Patient reports to the tibial fracture has not yet healed, and he is wearing a removable cast for the same. The patient as been on anticoagulation for A. fib, which was discontinued during this admission due to the drop in hemoglobin. Review of Systems Constitutional: Reports fatigue, Reports weakness Eyes: denies blurred vision, denies pain Ears: deny: decreased hearing, ear discharge, earache, tinnitus Ears, nose, mouth and throat: Denies headache, Denies sore throat Cardiovascular: Reports as per HPI, Reports palpitations, Reports shortness of breath Respiratory: Reports dyspnea Gastrointestinal: Denies abdominal pain, Denies diarrhea, Denies nausea, Denies vomiting Genitourinary: Reports as per HPI Musculoskeletal: Reports fractures, Reports muscle weakness Integumentary: Denies pruritus, Denies rash Neurological: Reports as per HPI, Reports memory loss (mild), Reports weakness Psychiatric: Denies anxiety, Denies depression Endocrine: Reports fatigue Hematologic/Lymphatic: Reports as per HPI Allergic/Immunologic: Reports as per HPI Past Medical History Past Medical History: Atrial Fibrillation, Dialysis, Eye Disorder Additional Past Medical History / Comment(s): heart murmur, Kidney Failure- Dial ysis BRANDYFR-has little urine output,approx twice per day,pt thinks may be on fluid restrictions checking with dialysis on 01-16-23 to confirm how much fluids per day he can have. Cataracts. History of Any Multi-Drug Resistant Organisms: None Reported Past Surgical History: Joint Replacement, Pacemaker Additional Past Surgical History / Comment(s): Cardiac stents, right hip replacement,left upper arm av fistula Past Anesthesia/Blood Transfusion Reactions: No Reported Reaction Additional Past Anesthesia/Blood Transfusion Reaction / Comm: no problems with prior blood transfusion Type of Cardiac Device: Permanent Pacemaker Device Placement Date:: 2010 Past Psychological History: No Psychological Hx Reported Smoking Status: Never smoker Past Alcohol Use History: None Reported Past Drug Use History: None Reported - Past Family History Father History Unknown: Yes Family Medical History: Hypertension Brother(s) History Unknown: Yes Family Medical History: Cancer Additional Family Medical History / Comment(s): 2 brothers of cancer. Medications and Allergies Home Medications Medication Instructions Recorded Confirmed Type Aspirin EC [Ecotrin Low Dose] 81 mg PO DAILY 08/04/21 06/25/24 History Sevelamer Carbonate 1,600 mg PO TID-W/MEALS 08/28/22 06/25/24 History levOCARNitine [Levocarnitine] 330 mg PO HS@1700 01/15/23 06/25/24 History Atorvastatin [Lipitor] 20 mg PO DAILY 05/16/23 06/25/24 History Furosemide [Lasix] 40 mg PO BID@0900,1700 05/16/23 06/25/24 History Sildenafil [Revatio] 20 mg PO BID@0900,1700 05/16/23 06/25/24 History Omeprazole 20 mg PO HS@1700 02/15/24 06/25/24 History carvediloL [Coreg] 3.125 mg PO HS@1700 02/15/24 06/25/24 History Sevelamer [Renvela] 1,600 mg PO DAILY PRN 05/02/24 06/25/24 History buPROPion XL [Wellbutrin XL] 150 mg PO DAILY 05/02/24 06/25/24 History Sennosides-Docusate Sodium 2 tab PO DAILY #30 tablet 05/07/24 06/25/24 Rx [Senokot-S] Acetaminophen Tab [Tylenol] 650 mg PO Q6H PRN 06/25/24 06/25/24 History Apixaban [Eliquis] 2.5 mg PO BID@0900,1700 06/25/24 06/25/24 History Benzonatate [Tessalon Perles] 200 mg PO Q6H PRN 06/25/24 06/25/24 History HYDROcodone/APAP 5-325MG [[place] 5] 1 tab PO Q6HR PRN 06/25/24 06/25/24 History Ipratropium-Albuterol Nebulize 3 ml INHALATION RT-Q4H PRN 06/25/24 06/25/24 History [Duoneb 0.5 mg-3 mg/3 ml Soln] Multivitamins, Thera [Multivitamin 1 tab PO HS@1700 06/25/24 06/25/24 History (formulary)] polyethylene glycoL 3350 [Miralax] 17 gm PO DAILY 06/25/24 06/25/24 History Allergies Allergy/AdvReac Type Severity Reaction Status Date / Time No Known Allergies Allergy Verified 06/25/24 16:04 Physical Exam Vitals: Vital Signs Temp Pulse Pulse Resp BP Pulse Ox 06/30/24 20:00 80 18 160/73 96 06/30/24 16:45 97.9 F 84 22 132/60 94 L 06/30/24 11:22 97.5 F L 71 20 144/61 100 06/30/24 08:00 97.8 F 85 20 151/68 91 L 06/30/24 03:09 97.7 F 75 20 160/66 100 Intake and Output 06/30/24 06/30/24 07/01/24 14:59 22:59 06:59 Intake Total 110 Balance 110 Intake: IV 10 Invasive Line 3 10 Intake, IV Titration 100 Amount Sodium Ferric Gluconat- 100 Sucrose 125 mg In Sodium Chloride 0.9% 100 ml @ 100 mls/hr IVPB DAILY [facility] Rx#:[id number] Other: # Voids 1 - Constitutional General appearance: no acute distress - EENT Eyes: EOMI, PERRLA ENT: hearing grossly normal, NA/AT, normal oropharynx - Neck Neck: no lymphadenopathy Thyroid: bilateral: normal size - Respiratory Respiratory: right: dullness - Cardiovascular Rhythm: regular Results CBC & Chem 7: 06/30/24 10:00 06/30/24 10:00 Labs: Abnormal Lab Results - Last 24 Hours (Table) 06/30/24 06/30/24 Range/Units 10:00 10:00 RBC 2.78 L (4.30-5.90) m/uL Hgb 8.1 L D (13.0-17.5) gm/dL Hct 26.7 L (39.0-53.0) % MCHC 30.4 L (31.0-37.0) g/dL RDW 18.2 H (11.5-15.5) % Sodium 136 L (137-145) mmol/L Chloride 96 L (98-107) mmol/L BUN 45 H (9-20) mg/dL Creatinine 4.29 H (0.66-1.25) mg/dL Glucose 122 H (74-99) mg/dL Microbiology - Last 24 Hours (Table) 06/26/24 13:00 Gram Stain - Final Pleural Fluid Body Fluid Culture - Final Chest x-ray: report reviewed CT scan - chest: report reviewed US - abdomen: report reviewed Assessment and Plan (1) Anemia Narrative/Plan: this is likely multifactorial. Patient does have underlying CAD. Case discussed in detail with nephrology. They feel that the patient is on FAROOQ with dialysis already. As noted in November hemoglobin was 12-13. It did drop into the current range when he was admitted with his infection, followed by some improvement and then dropped again this admission. There has been no obvious bleeding, and ferritin is high. However in the acute setting GI blood loss can not be ruled out, as ferritin done at that time may not have dropped yet. At this time it is not known of the patient missed dialysis and/or FAROOQ doses, that may also be also be a contributing factor, if present. Ongoing marrow suppression due to inflammation from his fracture, which is not yet healed, is also possibility. - Any progression of his monoclonal gammopathy is unlikely, given history of a minimal MGUS, with no progression over many years including on labs done in 11/30. - Agree with IV iron, as acute blood loss cannot be totally ruled out. In addition the patient's iron saturation was less than 20%, and he would require IV iron anyway to continue FAROOQ, per negro patient had also received blood transfusions in 02/27 and 04/29, which could have increased ferritin level, making the current values less accurate. - Check labs, including repeat protein electrophoresis studies to rule out any progression. Assuming this to be negative, continue FAROOQ - Follow-up as an outpatient to monitor response, as well as iron stores. - Check with patient and admitting service regarding date of last GI workup. Consider the same, especially if hemoglobin drops again. Even otherwise, it may be helpful to consider, especially since we would have to decide if the patient can be placed back on anticoagulation - continue to monitor CBC, and transfuse to keep hemoglobin greater than 7 Current Visit: No Status: Acute Code(s): D64.9 - ANEMIA, UNSPECIFIED SNOMED Code(s): 458790575 (2) Renal mass Narrative/Plan: in determinant left renal lesion was seen incidentally on his CTA. Additional dedicated imaging for clarification, as an outpatient Current Visit: Yes Status: Acute Code(s): N28.89 - OTHER SPECIFIED DISORDERS OF KIDNEY AND URETER SNOMED Code(s): 405112972 Plan: Defer to the admitting service for management of his multiple other medical problems. case discussed in detail with nephrology
[2024-07-01 08:21] LABS: Reticulocyte % 4.8 % (0.5-2.0)
[2024-07-01 10:52] LABS: Protein, Total 6.7 g/dL (6.2-8.2)
--- NOTE | 2024-07-01 11:47 | P.PN ---
Subjective Patient is seen in follow-up for end-stage renal disease. He is maintained on hemodialysis on Saturday schedule. Tolerating dialysis well. Blood pressure stable. Vital signs are stable. General: No acute distress. HEENT: Head exam is unremarkable. On nasal cannula. LUNGS: No audible rhonchi or wheezes. HEART: Rate and Rhythm are regular. ABDOMEN: Nontender. EXTREMITITES: Trace edema. Objective - Vital Signs Vital signs: Vital Signs Temp 97.9 F 07/01/24 09:40 Pulse 58 L 07/01/24 09:40 Resp 18 07/01/24 09:40 BP 139/73 07/01/24 09:40 Pulse Ox 98 07/01/24 09:40 FiO2 Intake & Output 06/30/24 07/01/24 07/01/24 18:59 06:59 18:59 Intake Total 110 360 Output Total 0 Balance 110 0 360 Weight 71.7 kg Intake: IV 10 Invasive Line 3 10 Intake, IV Titration 100 Amount Sodium Ferric Gluconat- 100 Sucrose 125 mg In Sodium Chloride 0.9% 100 ml @ 100 mls/hr IVPB DAILY [facility] Rx#:[id number] Oral 360 Output: Urine 0 Other: # Voids 1 - Labs CBC & Chem 7: 06/30/24 10:00 06/30/24 10:00 Labs: Abnormal Lab Results - Last 24 Hours (Table) 07/01/24 Range/Units 07:46 Retic Count 4.8 H (0.5-2.0) % Microbiology - Last 24 Hours (Table) 06/26/24 13:00 Gram Stain - Final Pleural Fluid Body Fluid Culture - Final Assessment and Plan Plan: Assessment: 1. End-stage renal disease maintained on hemodialysis on Saturday schedule. 2. Volume overload. Status post right thoracentesis with 1.1 L drained June 25, 2024. Transudative. 3. Acute blood loss anemia status post blood transfusion this admission. Hemoglobin 8.1 dated June 30, 2024. Iron deficiency noted. Receiving IV iron. On Aranesp. Also received IV DDAVP this admission. Hematology also following. Consider endoscopy. 4. Chronic kidney disease mineral bone disease maintained on Renvela. Plan: Currently seen while undergoing hemodialysis. Maintain torsemide.
--- NOTE | 2024-07-01 13:33 | P.PN ---
Subjective Progress Note Date: 07/01/24 Principal diagnosis: Anemia, Hx MGUS In f/u today pt is receiving dialysis. He denies any bleeding, never had endoscopy. Objective - Vital Signs Vital signs: Vital Signs Temp 98 F 07/01/24 12:00 Pulse 84 07/01/24 12:00 Resp 16 07/01/24 12:00 BP 132/59 07/01/24 12:00 Pulse Ox 100 07/01/24 12:00 FiO2 Intake & Output 06/30/24 07/01/24 07/01/24 18:59 06:59 18:59 Intake Total 110 360 Output Total 0 Balance 110 0 360 Weight 71.7 kg Intake: IV 10 Invasive Line 3 10 Intake, IV Titration 100 Amount Sodium Ferric Gluconat- 100 Sucrose 125 mg In Sodium Chloride 0.9% 100 ml @ 100 mls/hr IVPB DAILY [facility] Rx#:[id number] Oral 360 Output: Urine 0 Other: # Voids 1 - Constitutional General appearance: Present: average body habitus, cooperative, no acute distress - EENT Eyes: Present: anicteric sclerae, EOMI ENT: Present: hearing grossly normal - Respiratory Details: resp unlabored at rest - Cardiovascular Details: skin warm, well perfused - Peripheral edema leg Peripheral Edema: right: None, left: Trace - Neurologic Neurologic: Present: CNII-XII intact - Musculoskeletal Musculoskeletal: Present: strength equal bilaterally - Psychiatric Psychiatric: Present: A&O x's 3, appropriate affect, intact judgment & insight - Labs CBC & Chem 7: 06/30/24 10:00 06/30/24 10:00 Labs: Abnormal Lab Results - Last 24 Hours (Table) 07/01/24 Range/Units 07:46 Retic Count 4.8 H (0.5-2.0) % Microbiology - Last 24 Hours (Table) 06/26/24 13:00 Gram Stain - Final Pleural Fluid Body Fluid Culture - Final Assessment and Plan (1) Anemia Current Visit: Yes Status: Chronic Priority: Medium Code(s): D64.9 - ANEMIA, UNSPECIFIED SNOMED Code(s): 675731961 (2) Renal mass Current Visit: Yes Status: Acute Priority: High Code(s): N28.89 - OTHER SPECIFIED DISORDERS OF KIDNEY AND URETER SNOMED Code(s): 624497065 Plan: Anemia -likely multifactorial-CKD, iron def. GI blood loss can not be ruled out, pt has not had endoscopy, and pt is on rn long term care anticoagulation of a-fib. Marrow suppression due to inflammation from recent 2 fractures and healing, also poss ibly contributing. -Progression of MGUS felt to be less likely, most recent labs done 11/30. Repeat protein electrophoresis studies to rule out any progression. -IV iron ordered for suspicions of blood loss and it is needed so iron sat is 20% or higher for FAROOQ administration. -Will plan for follow-up as an outpatient to monitor response to treatment of anemia, as well as iron stores. -Pt has not had endoscopy in the past. Recommend upper and lower as there are concerns for blood loss. Decision has to be made if the patient can be placed back on anticoagulation. Will consult General Surgery -Monitor CBC, transfuse for a Hgb of 7 or less. Renal mass -Plans for follow-up once patient is more stable with dedicated imaging.
[2024-07-01 13:34] LABS: Free Kappa Lt Chain Qnt, Serum 15.51 mg/dL (0.33-1.94); Free Lambda Lt Chain Qnt, Seru 20.59 mg/dL (0.57-2.63)
--- NOTE | 2024-07-01 13:55 | XR ---
EXAMINATION TYPE: XR chest 1V portable DATE OF EXAM: 07/01/2024 COMPARISON: 06/29/2024 HISTORY: Shortness of breath TECHNIQUE: Single frontal view of the chest is obtained. FINDINGS: Moderate right pleural effusion and consolidation. No pneumothorax. Left lung clear. Heart is enlarged. Cardiac device. Diffuse osteopenia and arthropathy of the shoulders. Vascular metallic stents noted on the left. IMPRESSION: A moderate right pleural effusion and consolidation stable from prior exam. [facility], , 07/01/2024 1:53 PM
--- NOTE | 2024-07-01 15:18 | P.GSCN ---
History of Present Illness Consult date: 07/01/24 History of present illness: CHIEF COMPLAINT: Shortness of breath HISTORY OF PRESENT ILLNESS: This is a 79-year-old male who presented to the hospital with complaints of shortness of breath. He was found to have a large right-sided pleural effusion and had thoracentesis completed with 1.1 L removed. Patient is still short of breath and on 9L of oxygen. He is followed closely by pulmonary service. They are monitoring for possible repeat thoracentesis for the continuous pleural effusion. Patient has been anemic. He did have a hemoglobin of 6.6 they did come up to 8.1 after 1 unit of blood. Patient denies any active bleeding. Denies any blood in his stools. Denies any melanotic stools. Denies any nausea or vomiting or abdominal pain. He is on Eliquis for his A-fib. Patient is also end-stage renal disease on hemodialysis and history of coronary disease with cardiac stents. Patient's iron levels were low and he is receiving IV iron. Last colonoscopy over 6 years ago patient reports is normal. He is unsure if he has had an EGD. Hematology service has consulted surgical service upper and lower endoscopy for GI workup regarding patient's anemia. PAST MEDICAL HISTORY: MGUS, Atrial fibrillation, end-stage renal disease on hemodialysis, mild aortic stenosis, severe pulmonary pretension, CHF, iron deficiency anemia PAST SURGICAL HISTORY: Pacemaker, coronary disease with cardiac stents MEDICATIONS: See list. ALLERGIES: See list. SOCIAL HISTORY: No illicit drug use. REVIEW OF SYSTEMS: CONSTITUTIONAL: Denies fever or chills. HEENT: Denies blurred vision, vision changes, or eye pain. Denies hemoptysis ENDOCRINE: Denies heat or cold intolerance. CARDIOVASCULAR: Denies chest pain or pressure. RESPIRATORY: No shortness of breath. GASTROINTESTINAL: Denies abdominal pain. Denies nausea or vomiting. NEURO: Denies history of seizures. PSYCH: No depression or suicidal ideation HEMATOLOGIC: Denies bleeding disorders. LYMPHATIC: The patient denies any lumps and bumps around the neck. GENITOURINARY: Denies any blood in urine or increased urinary frequency. MUSCULOSKELETAL: Denies myalgias. Denies joint swelling. Denies decreased range of motion beyond patients baseline. SKIN: Denies pruitis. Denies rash. PHYSICAL EXAM: VITAL SIGNS: Reviewed GENERAL: Well-developed in no acute distress. HEENT: No sclera icterus. Extraocular movements grossly intact. Moist buccal mucosa. Head is atraumatic, normocephalic. Hears conversational speech. No nasal drainage. NECK: Supple without lymphadenopathy. CHEST: Non-labored respirations and equal bilateral excursions. CARDIOVASCULAR: Palpable 2+ radial pulses. ABDOMEN: Soft. Nondistended. Nontender MUSCULOSKELETAL: No clubbing or cyanosis. NEUROLOGIC: No focal or lateralizing signs. Cranial nerves II through XII grossly intact. PSYCH: Appropriate affect. Alert and oriented to person, place and time. SKIN: Well perfused. Good skin turgor. LABORATORY DATA: WBC 7.4 Hgb 6.6 up to 8.1 platelets 277 Sodium 136 potassium 3.7 creatinine 4.29 iron 24 IMAGING: Chest x-ray moderate right pleural effusion and consolidation stable from prior exam ASSESSMENT: 1. Anemia with iron deficiency. No active signs of bleeding 2. Right pleural effusion required thoracentesis 3. History of atrial fibrillation, Eliquis currently on hold 4. End-stage renal disease on hemodialysis PLAN: -Recommend EGD and colonoscopy when medically stable and cleared by pulmonary service -Continue to monitor hemoglobin -Continue to monitor for any signs or symptoms of bleeding -Continue to hold Eliquis Physician Hydro Sprayer Operator note has been reviewed by physician. Signing provider agrees with the documented findings, assessment, and plan of care. Past Medical History Past Medical History: Atrial Fibrillation, Dialysis, Eye Disorder Additional Past Medical History / Comment(s): heart murmur, Kidney Failure- Dialysis MOWEFR-has little urine output,approx twice per day,pt thinks may be on fluid restrictions checking with dialysis on 01-16-23 to confirm how much fluids per day he can have. Cataracts. History of Any Multi-Drug Resistant Organisms: None Reported Past Surgical History: Joint Replacement, Pacemaker Additional Past Surgical History / Comment(s): Cardiac stents, right hip replacement,left upper arm av fistula Past Anesthesia/Blood Transfusion Reactions: No Reported Reaction Additional Past Anesthesia/Blood Transfusion Reaction / Comm: no problems with prior blood transfusion Type of Cardiac Device: Permanent Pacemaker Device Placement Date:: 2010 Past Psychological History: No Psychological Hx Reported Smoking Status: Never smoker Past Alcohol Use History: None Reported Past Drug Use History: None Reported - Past Family History Father History Unknown: Yes Family Medical History: Hypertension Brother(s) History Unknown: Yes Family Medical History: Cancer Additional Family Medical History / Comment(s): 2 brothers of cancer. Medications and Allergies Home Medications Medication Instructions Recorded Confirmed Type Aspirin EC [Ecotrin Low Dose] 81 mg PO DAILY 08/04/21 06/25/24 History Sevelamer Carbonate 1,600 mg PO TID-W/MEALS 08/28/22 06/25/24 History levOCARNitine [Levocarnitine] 330 mg PO HS@1700 01/15/23 06/25/24 History Atorvastatin [Lipitor] 20 mg PO DAILY 05/16/23 06/25/24 History Furosemide [Lasix] 40 mg PO BID@0900,1700 05/16/23 06/25/24 History Sildenafil [Revatio] 20 mg PO BID@0900,1700 05/16/23 06/25/24 History Omeprazole 20 mg PO HS@1700 02/15/24 06/25/24 History carvediloL [Coreg] 3.125 mg PO HS@1700 02/15/24 06/25/24 History Sevelamer [Renvela] 1,600 mg PO DAILY PRN 05/02/24 06/25/24 History buPROPion XL [Wellbutrin XL] 150 mg PO DAILY 05/02/24 06/25/24 History Sennosides-Docusate Sodium 2 tab PO DAILY #30 tablet 05/07/24 06/25/24 Rx [Senokot-S] Acetaminophen Tab [Tylenol] 650 mg PO Q6H PRN 06/25/24 06/25/24 History Apixaban [Eliquis] 2.5 mg PO BID@0900,1700 06/25/24 06/25/24 History Benzonatate [Tessalon Perles] 200 mg PO Q6H PRN 06/25/24 06/25/24 History HYDROcodone/APAP 5-325MG [Fulda 5] 1 tab PO Q6HR PRN 06/25/24 06/25/24 History Ipratropium-Albuterol Nebulize 3 ml INHALATION RT-Q4H PRN 06/25/24 06/25/24 History [Duoneb 0.5 mg-3 mg/3 ml Soln] Multivitamins, Thera [Multivitamin 1 tab PO HS@1700 06/25/24 06/25/24 History (formulary)] polyethylene glycoL 3350 [Miralax] 17 gm PO DAILY 06/25/24 06/25/24 History Allergies Allergy/AdvReac Type Severity Reaction Status Date / Time No Known Allergies Allergy Verified 06/25/24 16:04 Surgical - Exam Vital Signs Temp Pulse Resp BP Pulse Ox 98.1 F 70 18 145/62 90 L 06/25/24 16:00 06/25/24 16:00 06/25/24 16:00 06/25/24 16:00 06/25/24 16:00 Results - Labs 06/30/24 10:00 06/30/24 10:00 Abnormal Lab Results - Last 24 Hours (Table) 07/01/24 07/01/24 Range/Units 07:46 07:46 Retic Count 4.8 H (0.5-2.0) % Free [place] LC, Quant 15.51 H (0.33-1.94) mg/dL Free Lambda LC, Quant 20.59 H (0.57-2.63) mg/dL Microbiology - Last 24 Hours (Table) 06/26/24 13:00 Gram Stain - Final Pleural Fluid Body Fluid Culture - Final
--- NOTE | 2024-07-01 16:36 | P.PN ---
Subjective Progress Note Date: 07/01/24 79-year-old male who comes into the emergency room, on June 25, complaining of shortness of breath. The patient states that the shortness of breath has gotten worse over the last few days. The patient was seen in the emergency department, discovered to have a large right sided pleural effusion. We ended up seeing the patient in the emergency department, room #6. The patient had an elevated BNP. His CT scan was consistent with CHF. He is on 4 L of oxygen with saturations of 91%. He was getting saline at 75 cc an hour and I turned the fluid down to 20 cc an hour. Will plan on doing an ultrasound, to see if he has fluid, that can be drained via thoracentesis. He has a history of atrial fibrillation, heart murmur, kidney failure, on hemodialysis, previous pacemaker implantation, and cardiac stents for CAD. Current labs include a white count 7.5, hemoglobin 9, hematocrit 30, platelet count 303,000. Sodium 139, potassium 3.8, chlorides 97, CO2 31, BUN 26, creatinine 4.87. Troponins were 0.015, 0.017, and 0.021. N-terminal proBNP was 38,200. The patient's chest ultrasound showed a right-sided pleural effusion with a pocket size of 11.3 cm. Distance from the right skin surface to the fluid, was 1.3 cm. Progress note dated June 27, 2024. 79-year-old male who we saw in the emergency department yesterday. He was admitted with a right-sided pleural effusion. He had thoracentesis in the emergency department. He also received hemodialysis in the emergency [facility]. He is seen today in room 377. He is on room air. He is not receiving any IV fluids. His fluid analysis turned out to be a transudate. 1100 cc of light yellow fluid was removed. He tolerated the procedure well. No new labs today. Progress note dated June 28, 2024. 79-year-old male seen today in room 377. The patient is currently on 4 L of oxygen. No IV fluids. The patient has hemodialysis planned on Saturday, Saturday, and Saturday. The patient had a right-sided thoracentesis performed in the emergency department. We removed 1100 cc of transudative fluid. He tolerated the procedure well. Current labs include a white count 8.8, hemoglobin 7.4, hematocrit 24.2, and platelet count 267,000. Sodium 134, potassium 4.2, chloride 96, CO2 31, BUN 33, creatinine 5.45. Procalcitonin level was 0.53. On today's evaluation of 06/29/2024, the patient is being seen for a follow-up. Patient has end-stage renal disease on hemodialysis. The patient also had right-sided pleural effusion for which thoracentesis was done on 06/26/2024 and a total of 1.1 L of pleural fluid was aspirated. Based on the fluid chemistry, this seems to be a transudate based on the low LDH and low protein. The patient remains on 4 L of oxygen by nasal cannula with a pulse ox of 97%. A repeat chest x-ray was done today and it shows a residual right-sided pleural effusion with some reaccumulation. The patient was seen by nephrology in follow-up. The patient will receive ultrafiltration as he is able to tolerate. Noted that he does have a chronic anemia and iron deficiency was noted. Blood work from today shows a hemoglobin of 6.6 with a white cell count of 7.6 and a platelet count of 222. The serum iron was 24. The BUN is 33 with a creatinine of 5.4 and a sodium levels at 134. Echocardiogram showed preserved LV function with moderate mitral stenosis and moderate mitral regurgitation and moderate degree of tricuspid regurgitation and severe pulmonary hypertension. CT of the chest was done on 06/25/2024 at time of admission showed pulm vas congestion and a moderate-sized right-sided pleural effusion along with cardiomegaly. Last 06/30/2024, the patient is being seen for a follow-up. The patient is stable. No significant respiratory distress at this point in time. He is on 4 L of oxygen by nasal cannula with a pulse ox of 99 to 100%. Afebrile. Hemodynamically stable. As mentioned, the repeat chest x-ray showed a recurrence of the right-sided pleural effusion. Nevertheless, the patient is undergoing hemodialysis periodically and next session is tomorrow. He received a unit of packed RBC yesterday and hemoglobin is up to 8.1. WBC count is at 7.4. BUN is 45 with a creatinine of 4.29 and sodium levels of 136. The patient has no signs of any GI bleeding at this point in time. The plan is to undergo hemodialysis tomorrow. He was started on torsemide 40 mg 1 tablet a day. Nephrology is on the case. On 07/01/2024, the patient is complaining of some shortness of breath. The patient is currently on 4 L of oxygen by nasal cannula. He is in the process of undergoing hemodialysis. I made recommendations to repeat a chest x-ray following hemodialysis ultrafiltration. Will likely need another thoracentesis of the right lung if he continues to be short of breath post hemodialysis. Afebrile. Hemodynamically stable. No chest pain. No new labs are available from today. Objective - Vital Signs Vital signs: Vital Signs Temp 98.0 F 07/01/24 00:00 Pulse 82 07/01/24 04:00 Resp 18 07/01/24 04:00 BP 130/69 07/01/24 04:00 Pulse Ox 96 07/01/24 04:00 FiO2 Intake & Output 06/30/24 07/01/24 07/01/24 18:59 06:59 18:59 Intake Total 110 360 Output Total 0 Balance 110 0 360 Weight 71.7 kg Intake: IV 10 Invasive Line 3 10 Intake, IV Titration 100 Amount Sodium Ferric Gluconat- 100 Sucrose 125 mg In Sodium Chloride 0.9% 100 ml @ 100 mls/hr IVPB DAILY [facility] Rx#:[id number] Oral 360 Output: Urine 0 Other: # Voids 1 - Exam No acute distress, oriented 3. Currently on 4 L. No respiratory distress. HEENT examination is grossly unremarkable. Mucous membranes are moist. No oral lesions. Neck supple. Full range of motion. No adenopathy thyromegaly or neck vein distention. Cardiovascular examination reveals regular rhythm rate. S1-S2 normal. No S3 or S4. No discernible murmur noted. Lungs reveal slightly diminished breath sounds at the right base. Slight dullness at the right base and percussion. The left lung is clear. No adventitious lung sounds. Saturation is 96% on 4 L. Abdomen soft bowel sounds are heard. No masses or tenderness. Extremities are intact. No cyanosis clubbing or edema. Skin is without rash or lesion. Neurologic examination is brief but nonfocal. - Labs CBC & Chem 7: 06/30/24 10:00 06/30/24 10:00 Labs: Abnormal Lab Results - Last 24 Hours (Table) 06/30/24 06/30/24 07/01/24 Range/Units 10:00 10:00 07:46 RBC 2.78 L (4.30-5.90) m/uL Hgb 8.1 L D (13.0-17.5) gm/dL Hct 26.7 L (39.0-53.0) % MCHC 30.4 L (31.0-37.0) g/dL RDW 18.2 H (11.5-15.5) % Retic Count 4.8 H (0.5-2.0) % Sodium 136 L (137-145) mmol/L Chloride 96 L (98-107) mmol/L BUN 45 H (9-20) mg/dL Creatinine 4.29 H (0.66-1.25) mg/dL Glucose 122 H (74-99) mg/dL Microbiology - Last 24 Hours (Table) 06/26/24 13:00 Gram Stain - Final Pleural Fluid Body Fluid Culture - Final Assessment and Plan Plan: Acute shortness of breath, secondary to large right-sided pleural effusion. The patient is postthoracentesis with removal of 1.1 L of transudative fluid from the right lung, remains on oxygen at 4 L/min nasal cannula with pulse ox of 99 to 100%. Patient continues to complain of shortness of breath. Undergoing another session of hemodialysis this morning. Valvular heart disease with moderate mitral and tricuspid regurgitation, preserved RV function End-stage renal disease, currently on 3 times a week hemodialysis. Acute on top of chronic anemia with a component of iron deficiency , received a unit of packed RBC. No evidence of any GI bleed. History of hyperlipidemia. History of hypertension. History of atrial fibrillation. History of cataracts. Previous pacemaker implantation. CAD with previous stent placement. Plan: Repeat chest x-ray post hemodialysis Will repeat thoracentesis if needed, if patient remains short of breath post hemodialysis IV iron and Aranesp Hemoglobin is stable Titrate oxygen flow to maintain saturation above 90%, currently on 4 L Torsemide 40 mg p.o. daily Will continue to follow
[2024-07-02 07:54] LABS: Anisocytosis Slight; HGB 8.3 gm/dL (13.0-17.5); Hypochromasia Marked; MCH 29.5 pg (25.0-35.0); MCHC 30.5 g/dL (31.0-37.0); MCV 96.5 fL (80.0-100.0); Macrocytosis Slight; Mean Platelet Volume 7.1; Platelet Count 278 k/uL (150-450); RDW 17.5 % (11.5-15.5); WBC 6.3 k/uL (3.8-10.6)
--- NOTE | 2024-07-02 10:44 | P.PN ---
Subjective Patient is seen in follow-up for end-stage renal disease. He is maintained on hemodialysis on Saturday schedule. Tolerated nearly 3 L ultrafiltration yesterday. No active bleeding. Vital signs are stable. General: No acute distress. HEENT: Head exam is unremarkable. On nasal cannula. LUNGS: No audible rhonchi or wheezes. HEART: Rate and Rhythm are regular. ABDOMEN: Nontender. EXTREMITITES: Trace edema. Objective - Vital Signs Vital signs: Vital Signs Temp 98.1 F 07/01/24 20:00 Pulse 58 L 07/02/24 04:00 Resp 16 07/02/24 04:00 BP 122/77 07/02/24 04:00 Pulse Ox 95 07/02/24 04:00 FiO2 Intake & Output 07/01/24 07/02/24 07/02/24 18:59 06:59 18:59 Intake Total 1460 180 Output Total 6900 Balance -5440 180 Weight 66 kg Intake: Oral 960 180 Hemodialysis 500 Output: Urine 0 Hemodialysis 3700 Hemodialysis Net Amount 3200 - Labs CBC & Chem 7: 07/02/24 07:09 06/30/24 10:00 Labs: Abnormal Lab Results - Last 24 Hours (Table) 07/01/24 07/02/24 Range/Units 07:46 07:09 RBC 2.80 L (4.30-5.90) m/uL Hgb 8.3 L (13.0-17.5) gm/dL Hct 27.0 L (39.0-53.0) % MCHC 30.5 L (31.0-37.0) g/dL RDW 17.5 H (11.5-15.5) % Free [place] LC, Quant 15.51 H (0.33-1.94) mg/dL Free Lambda LC, Quant 20.59 H (0.57-2.63) mg/dL Assessment and Plan Plan: Assessment: 1. End-stage renal disease maintained on hemodialysis on Saturday schedule. 2. Volume overload. Status post right thoracentesis with 1.1 L drained June 25, 2024. Transudative. 3. Acute blood loss anemia status post blood transfusion this admission. Hemoglobin 8.3 today. Iron deficiency noted. Receiving IV iron. On Aranesp. Also received IV DDAVP this admission. Hematology also following. Consider endoscopy. Being followed by surgery as well. 4. Chronic kidney disease mineral bone disease maintained on Renvela. Plan: Hemodialysis tomorrow. Challenge ultrafiltration. Maintain torsemide.
--- NOTE | 2024-07-02 11:28 | XR ---
EXAMINATION TYPE: XR chest 1V portable DATE OF EXAM: 07/02/2024 COMPARISON: 07/01/2024 HISTORY: Postthoracentesis TECHNIQUE: Single frontal view of the chest is obtained. FINDINGS: No sizable pneumothorax. Interval reduction in amount of pleural fluid and persistent righ t-sided consolidation. Heart is enlarged. Metallic stents and cardiac device noted. Left lung clear. Underlying COPD. No pneumothorax. Diffuse osteopenia and arthropathy of the shoulders. Degenerative c hange of the spine. Chronic deformities of the rib cage. IMPRESSION: 1. No sizable pneumothorax. 2. Interval reduction in the amount of pleural fluid with persistent right lower lobe consolidation c orrelate for atelectasis versus pneumonia. [facility], , 07/02/2024 11:26 AM
--- NOTE | 2024-07-02 12:26 | P.PN ---
Subjective Progress Note Date: 07/02/24 CHIEF COMPLAINT: Shortness of breath HISTORY OF PRESENT ILLNESS: Patient admitted to the hospital with shortness of breath and right-sided pleural effusion. This is his second thoracentesis today. Per pulmonary service the fluid was bloody. Patient denies any abdominal pain. Denies any blood in his stools. Hemoglobin 8.1-8.3 today. Vital stable. He is requiring less oxygen today. PHYSICAL EXAM: VITAL SIGNS: Reviewed GENERAL: Well-developed in no acute distress. HEENT: No sclera icterus. Extraocular movements grossly intact. Moist buccal mucosa. Head is atraumatic, normocephalic. Hears conversational speech. No nasal drainage. NECK: Supple without lymphadenopathy. CHEST: Non-labored respirations and equal bilateral excursions. CARDIOVASCULAR: Palpable 2+ radial pulses. ABDOMEN: Soft. Nondistended. Nontender. MUSCULOSKELETAL: No clubbing or cyanosis. NEUROLOGIC: No focal or lateralizing signs. Cranial nerves II through XII grossly intact. PSYCH: Appropriate affect. Alert and oriented to person, place and time. SKIN: Well perfused. Good skin turgor. ASSESSMENT: 1. Anemia with iron deficiency. No active signs of GI bleeding 2. Right pleural effusion required thoracentesis x 2 3. History of atrial fibrillation, Kash currently on hold 4. End-stage renal disease on hemodialysis PLAN: -Continue to monitor -Recommend EGD and colonoscopy when medically stable. Discussed case with pulmonary service and will see how patient looks tomorrow after getting his thoracentesis today. -Continue to monitor hemoglobin -Continue to hold Eliquis Physician Cable Hooker note has been reviewed by physician. Signing provider agrees with the documented findings, assessment, and plan of care. Objective - Vital Signs Vital signs: Vital Signs Temp 98.1 F 07/01/24 20:00 Pulse 58 L 07/02/24 04:00 Resp 16 07/02/24 04:00 BP 122/77 07/02/24 04:00 Pulse Ox 95 07/02/24 04:00 FiO2 Intake & Output 07/01/24 07/02/24 07/02/24 18:59 06:59 18:59 Intake Total 1460 180 Output Total 6900 Balance -5440 180 Weight 66 kg Intake: Oral 960 180 Hemodialysis 500 Output: Urine 0 Hemodialysis 3700 Hemodialysis Net Amount 3200 - Labs CBC & Chem 7: 07/02/24 07:09 06/30/24 10:00 Labs: Abnormal Lab Results - Last 24 Hours (Table) 07/01/24 07/02/24 Range/Units 07:46 07:09 RBC 2.80 L (4.30-5.90) m/uL Hgb 8.3 L (13.0-17.5) gm/dL Hct 27.0 L (39.0-53.0) % MCHC 30.5 L (31.0-37.0) g/dL RDW 17.5 H (11.5-15.5) % Free [place] LC, Quant 15.51 H (0.33-1.94) mg/dL Free Lambda LC, Quant 20.59 H (0.57-2.63) mg/dL
--- NOTE | 2024-07-02 13:43 | P.PN ---
Subjective Progress Note Date: 07/02/24 Principal diagnosis: Anemia, Hx MGUS In f/u today pt reports feeling ok, he is bored and wants to get around. Denies any bleeding. He has been receiving IV iron, he was started in FAROOQ. Objective - Vital Signs Vital signs: Vital Signs Temp 98.8 F 07/02/24 08:00 Pulse 71 07/02/24 08:00 Resp 18 07/02/24 08:00 BP 133/60 07/02/24 08:00 Pulse Ox 90 L 07/02/24 08:00 FiO2 Intake & Output 07/01/24 07/02/24 07/02/24 18:59 06:59 18:59 Intake Total 1460 360 Output Total 6900 Balance -5440 360 Weight 66 kg Intake: Oral 960 360 Hemodialysis 500 Output: Urine 0 Hemodialysis 3700 Hemodialysis Net Amount 3200 - Constitutional General appearance: Present: average body habitus, cooperative, no acute distress - EENT Eyes: Present: anicteric sclerae, EOMI ENT: Present: hearing grossly normal - Respiratory Details: resp even and unlabored - Cardiovascular Details: skin warm, well perfused - Neurologic Neurologic: Present: CNII-XII intact - Musculoskeletal Musculoskeletal Comment(s): LLE from injury, mild weakness, uses assistive device - Psychiatric Psychiatric: Present: A&O x's 3, appropriate affect, intact judgment & insight - Labs CBC & Chem 7: 07/02/24 07:09 06/30/24 10:00 Labs: Abnormal Lab Results - Last 24 Hours (Table) 07/01/24 07/02/24 Range/Units 07:46 07:09 RBC 2.80 L (4.30-5.90) m/uL Hgb 8.3 L (13.0-17.5) gm/dL Hct 27.0 L (39.0-53.0) % MCHC 30.5 L (31.0-37.0) g/dL RDW 17.5 H (11.5-15.5) % Free [place] LC, Quant 15.51 H (0.33-1.94) mg/dL Free Lambda LC, Quant 20.59 H (0.57-2.63) mg/dL Assessment and Plan (1) Anemia Current Visit: Yes Status: Chronic Priority: Medium Code(s): D64.9 - ANEMIA, UNSPECIFIED SNOMED Code(s): 216540806 (2) Renal mass Current Visit: Yes Status: Acute Priority: High Code(s): N28.89 - OTHER SPECIFIED DISORDERS OF KIDNEY AND URETER SNOMED Code(s): 732070915 Plan: Anemia -likely multifactorial-CKD, iron def. GI blood loss can not be ruled out, pt has not had endoscopy, and pt is on vermin exterminator anticoagulation of a-fib. Marrow suppression due to inflammation from recent 2 fractures and healing, also p ossibly contributing. -Progression of MGUS felt to be less likely, most recent labs done 11/30. K/L e levated with normal ratio -most consistent with CKD. Pend protein electrophoresis results. -IV iron given for suspicions of GI blood loss and it is needed so iron sat is 20% or higher for FAROOQ administration. -Will plan for follow-up as an outpatient to monitor response to treatment of anemia, as well as iron stores. -Pt has not had endoscopy in the past. Recommend upper and lower as there are concerns for blood loss. Decision has to be made if the patient can be placed back on anticoagulation. General Surgery has seen pt, pending stability of pt to proceed -Hgb stable 8.3 today. Transfuse for a Hgb of 7 or less. Renal mass -Plans for follow-up once patient is more stable with dedicated imaging.
[2024-07-02 14:16] VITALS: BMI 20.8
--- NOTE | 2024-07-02 15:06 | P.PN ---
Subjective Progress Note Date: 07/01/24 This is an 79-year-old gentleman with past medical history significant for end- stage renal disease, anemia, hypercoagulopathy, atrial fibrillation, valvular heart disease, permanent pacemaker, CAD and multiple other medical issues admitted with acute hypoxic respiratory failure, status post right-sided tho racentesis-transudative- for large right-sided pleural effusion, suspecting acute CHF exacerbation. Cytology pending. denies chills or sweats. Reports he feels totally exhausted. Hemoglobin 6.7, 7.4 with repeat hemoglobin pending. denies chest pain or palpitations. Maintaining O2 sats in the low 90s on 4 L nasal cannula. Chest x-ray pending. Afebrile. 06/30/2024 Received 1 unit of packed RBCs yesterday with hemoglobin currently 8.1, platelets 277. No active bleeding reported. slept well in bed without shortness of breath. Denies chest pain, palpitations. Reports nonproductive cough x 2 to 3 weeks. Denies lightheadedness dizziness. Has not yet ambulated. PT consult in place. Chest x-ray completed yesterday afternoon reporting moderate right pleural effusion and consolidation with no sizable pneumothorax. Maintaining O2 sat in the high 90s to 100% on 4 L nasal cannula. Pleural cytology from previous thoracentesis pending. afebrile, normal WBC. 07/01/2024 Currently receiving hemodialysis this morning. Received IV iron. complaining of shortness of breath and feeling tired. currently maintaining O2 sats in the 90s on 4 L nasal cannula. Pleural cytology reported few scattered mixed acute and chronic inflammatory cells with macrophages and reactive mesothelial cells, negative for malignancy. Afebrile. Objective - Vital Signs Vital signs: Vital Signs Temp 98 F 07/01/24 13:49 Pulse 85 07/01/24 16:00 Resp 16 07/01/24 16:00 BP 136/55 07/01/24 16:00 Pulse Ox 99 07/01/24 16:00 FiO2 Intake & Output 06/30/24 07/01/24 07/01/24 18:59 06:59 18:59 Intake Total 110 1220 Output Total 0 6900 Balance 110 0 -5680 Weight 71.7 kg Intake: IV 10 Invasive Line 3 10 Intake, IV Titration 100 Amount Sodium Ferric Gluconat- 100 Sucrose 125 mg In Sodium Chloride 0.9% 100 ml @ 100 mls/hr IVPB DAILY [facility] Rx#:[id number] Oral 720 Hemodialysis 500 Output: Urine 0 0 Hemodialysis 3700 Hemodialysis Net Amount 3200 Other: # Voids 1 - Exam PHYSICAL EXAM: VITAL SIGNS: [As above] GENERAL: Fatigued ,alert and oriented x 3, lying in bed, no acute distress. HEENT: Normocephalic, conjunctivae normal. eyes normal. Sclera anicteric. NECK: Supple, no JVD. CARDIOVASCULAR: S1, S2 regular. Systolic murmur RESPIRATION: Unlabored, equal air entry ,breath sounds diminished, greatest on the right base. ABDOMEN: Soft, nondistended, nontender, no guarding, no rigidity. +BS EXTR: Warm and dry, no edema, no clubbing or cyanosis. NERVOUS SYSTEM: Cranial N 2-12 grossly normal. No focal deficits. Strength and sensation grossly intact. Skin: Warm and dry, no rash - Labs CBC & Chem 7: 07/02/24 07:09 06/30/24 10:00 Labs: Abnormal Lab Results - Last 24 Hours (Table) 07/01/24 07/01/24 Range/Units 07:46 07:46 Retic Count 4.8 H (0.5-2.0) % Free [place] LC, Quant 15.51 H (0.33-1.94) mg/dL Free [place] LC, Quant 20.59 H (0.57-2.63) mg/dL Microbiology - Last 24 Hours (Table) 06/26/24 13:00 Gram Stain - Final Pleural Fluid Body Fluid Culture - Final Assessment and Plan Assessment: Acute shortness of breath secondary to large right-sided pleural effusion status post right-sided thoracentesis, fluid transudative. Acute blood loss anemia, status posttransfusion 1 unit packed RBCs Chronic iron deficient anemia. Chronic diastolic CHF End-stage renal disease on hemodialysis, history of cardiorenal syndrome. HD Saturday Chronic atrial fibrillation History of pacemaker implantation, complete heart block CAD Severe pulmonary hypertension Moderate to severe mitral regurgitation Moderate to severe tricuspid regurgitation Multivalvular heart disease including mild aortic stenosis Mild hepatic steatosis Plan: Continue on current medication resume ,monitoring and symptomatic treatment. Possible repeat thoracentesis for ongoing pleural effusion, chest x- ray ordered post hemodialysis. hemodialysis as per nephrology. Hematology recommendations noted and appreciated. PT/OT. Prognosis guarded given multiple complex medical issues. The impression and plan of care has been dictated as directed. : I performed a history and examination of this patient, discussed the same with the dictator. I agree with the dictator's note ,documented as a scribe. Any additional findings or plans will be noted.
--- NOTE | 2024-07-02 15:24 | P.PN ---
Subjective Progress Note Date: 07/02/24 This is an 79-year-old gentleman with past medical history significant for end- stage renal disease, anemia, hypercoagulopathy, atrial fibrillation, valvular heart disease, permanent pacemaker, CAD and multiple other medical issues admitted with acute hypoxic respiratory failure, status post right-sided tho racentesis-transudative- for large right-sided pleural effusion, suspecting acute CHF exacerbation. Cytology pending. denies chills or sweats. Reports he feels totally exhausted. Hemoglobin 6.7, 7.4 with repeat hemoglobin pending. denies chest pain or palpitations. Maintaining O2 sats in the low 90s on 4 L nasal cannula. Chest x-ray pending. Afebrile. 06/30/2024 Received 1 unit of packed RBCs yesterday with hemoglobin currently 8.1, platelets 277. No active bleeding reported. slept well in bed without shortness of breath. Denies chest pain, palpitations. Reports nonproductive cough x 2 to 3 weeks. Denies lightheadedness dizziness. Has not yet ambulated. PT consult in place. Chest x-ray completed yesterday afternoon reporting moderate right pleural effusion and consolidation with no sizable pneumothorax. Maintaining O2 sat in the high 90s to 100% on 4 L nasal cannula. Pleural cytology from previous thoracentesis pending. afebrile, normal WBC. 07/01/2024 currently receiving hemodialysis this morning. Received IV iron. complaining of shortness of breath and feeling tired. currently maintaining O2 sats in the 90s on 4 L nasal cannula. Pleural cytology reported few scattered mixed acute and chronic inflammatory cells with macrophages and reactive mesothelial cells, negative for malignancy. Afebrile. 07/02/2024 report he feels better today, less tired. States his coughing eased up throughout the night and he slept well. Maintained on torsemide. chest x-ray post hemodialysis yesterday reported moderate right pleural effusion and consolidation stable from prior exam . Repeat chest x-ray pending .denies chest pain, palpitations or shortness of breath. Maintaining O2 sats in the high 90s on 4 L nasal cannula. denies lightheadedness dizziness or focal deficits. Denies headache. Denies nausea or vomiting or abdominal pain. Receivied IV DDAVP . Continues on IV iron, Aranesp. hemoglobin stable at 8.3. No active signs of GI bleed. Evaluated by general surgery for EGD and colonoscopy- recommending when medically stable. Objective - Vital Signs Vital signs: Vital Signs Temp 98.8 F 07/02/24 08:00 Pulse 75 07/02/24 12:00 Resp 18 07/02/24 12:00 BP 150/63 07/02/24 12:00 Pulse Ox 95 07/02/24 12:00 FiO2 Intake & Output 07/01/24 07/02/24 07/02/24 18:59 06:59 18:59 Intake Total 1460 360 Output Total 6900 Balance -5440 360 Weight 66 kg 66 kg Intake: Oral 960 360 Hemodialysis 500 Output: Urine 0 Hemodialysis 3700 Hemodialysis Net Amount 3200 - Exam PHYSICAL EXAM: VITAL SIGNS: [As above] GENERAL:alert and oriented x 3, sitting up at bedside, no acute distress. HEENT: Normocephalic, conjunctivae normal. eyes normal. Sclera anicteric. NECK: Supple, no JVD. CARDIOVASCULAR: S1, S2 regular. Systolic murmur RESPIRATION: Unlabored, equal air entry ,breath sounds diminished right base. ABDOMEN: Soft, nondistended, nontender, no guarding, no rigidity. +BS EXTR: Warm and dry, no edema, no clubbing or cyanosis. NERVOUS SYSTEM: Cranial N 2-12 grossly normal. No focal deficits. Strength and sensation grossly intact. Skin: Warm and dry, no rash - Labs CBC & Chem 7: 07/02/24 07:09 06/30/24 10:00 Labs: Abnormal Lab Results - Last 24 Hours (Table) 07/02/24 Range/Units 07:09 RBC 2.80 L (4.30-5.90) m/uL Hgb 8.3 L (13.0-17.5) gm/dL Hct 27.0 L (39.0-53.0) % MCHC 30.5 L (31.0-37.0) g/dL RDW 17.5 H (11.5-15.5) % Assessment and Plan Assessment: Acute shortness of breath secondary to large right-sided pleural effusion status post right-sided thoracentesis, fluid transudative. Acute blood loss anemia, status posttransfusion 1 unit packed RBCs Chronic iron deficient anemia. Chronic diastolic CHF End-stage renal disease on hemodialysis, history of cardiorenal syndrome. HD Saturday Chronic atrial fibrillation History of pacemaker implantation, complete heart block CAD Severe pulmonary hypertension Moderate to severe mitral regurgitation Moderate to severe tricuspid regurgitation Multivalvular heart disease including mild aortic stenosis Mild hepatic steatosis Plan: Continue on current medication resume ,monitoring and symptomatic treatment. Repeat chest x-ray pending, potential thoracentesis. hemodialysis as per nephrology. Hematology recommendations noted and appreciated. PT/OT. Prognosis guarded given multiple complex medical issues. The impression and plan of care has been dictated as directed. : I performed a history and examination of this patient, discussed the same with the dictator. I agree with the dictator's note ,documented as a scribe. Any additional findings or plans will be noted.
--- NOTE | 2024-07-02 19:10 | P.PN ---
Subjective Progress Note Date: 07/02/24 79-year-old male who comes into the emergency room, on June 25, complaining of shortness of breath. The patient states that the shortness of breath has gotten worse over the last few days. The patient was seen in the emergency department, discovered to have a large right sided pleural effusion. We ended up seeing the patient in the emergency department, room #6. The patient had an elevated BNP. His CT scan was consistent with CHF. He is on 4 L of oxygen with saturations of 91%. He was getting saline at 75 cc an hour and I turned the fluid down to 20 cc an hour. Will plan on doing an ultrasound, to see if he has fluid, that can be drained via thoracentesis. He has a history of atrial fibrillation, heart murmur, kidney failure, on hemodialysis, previous pacemaker implantation, and cardiac stents for CAD. Current labs include a white count 7.5, hemoglobin 9, hematocrit 30, platelet count 303,000. Sodium 139, potassium 3.8, chlorides 97, CO2 31, BUN 26, creatinine 4.87. Troponins were 0.015, 0.017, and 0.021. N-terminal proBNP was 38,200. The patient's chest ultrasound showed a right-sided pleural effusion with a pocket size of 11.3 cm. Distance from the right skin surface to the fluid, was 1.3 cm. Progress note dated June 27, 2024. 79-year-old male who we saw in the emergency department yesterday. He was admitted with a right-sided pleural effusion. He had thoracentesis in the emergency department. He also received hemodialysis in the emergency [facility]. He is seen today in room 377. He is on room air. He is not receiving any IV fluids. His fluid analysis turned out to be a transudate. 1100 cc of light yellow fluid was removed. He tolerated the procedure well. No new labs today. Progress note dated June 28, 2024. 79-year-old male seen today in room 377. The patient is currently on 4 L of oxygen. No IV fluids. The patient has hemodialysis planned on Saturday, Saturday, and Saturday. The patient had a right-sided thoracentesis performed in the emergency department. We removed 1100 cc of transudative fluid. He tolerated the procedure well. Current labs include a white count 8.8, hemoglobin 7.4, hematocrit 24.2, and platelet count 267,000. Sodium 134, potassium 4.2, chloride 96, CO2 31, BUN 33, creatinine 5.45. Procalcitonin level was 0.53. On today's evaluation of 06/29/2024, the patient is being seen for a follow-up. Patient has end-stage renal disease on hemodialysis. The patient also had right-sided pleural effusion for which thoracentesis was done on 06/26/2024 and a total of 1.1 L of pleural fluid was aspirated. Based on the fluid chemistry, this seems to be a transudate based on the low LDH and low protein. The patient remains on 4 L of oxygen by nasal cannula with a pulse ox of 97%. A repeat chest x-ray was done today and it shows a residual right-sided pleural effusion with some reaccumulation. The patient was seen by nephrology in follow-up. The patient will receive ultrafiltration as he is able to tolerate. Noted that he does have a chronic anemia and iron deficiency was noted. Blood work from today shows a hemoglobin of 6.6 with a white cell count of 7.6 and a platelet count of 222. The serum iron was 24. The BUN is 33 with a creatinine of 5.4 and a sodium levels at 134. Echocardiogram showed preserved LV function with moderate mitral stenosis and moderate mitral regurgitation and moderate degree of tricuspid regurgitation and severe pulmonary hypertension. CT of the chest was done on 06/25/2024 at time of admission showed pulm vas congestion and a moderate-sized right-sided pleural effusion along with cardiomegaly. Last 06/30/2024, the patient is being seen for a follow-up. The patient is stable. No significant respiratory distress at this point in time. He is on 4 L of oxygen by nasal cannula with a pulse ox of 99 to 100%. Afebrile. Hemodynamically stable. As mentioned, the repeat chest x-ray showed a recurrence of the right-sided pleural effusion. Nevertheless, the patient is undergoing hemodialysis periodically and next session is tomorrow. He received a unit of packed RBC yesterday and hemoglobin is up to 8.1. WBC count is at 7.4. BUN is 45 with a creatinine of 4.29 and sodium levels of 136. The patient has no signs of any GI bleeding at this point in time. The plan is to undergo hemodialysis tomorrow. He was started on torsemide 40 mg 1 tablet a day. Nephrology is on the case. On 07/01/2024, the patient is complaining of some shortness of breath. The patient is currently on 4 L of oxygen by nasal cannula. He is in the process of undergoing hemodialysis. I made recommendations to repeat a chest x-ray following hemodialysis ultrafiltration. Will likely need another thoracentesis of the right lung if he continues to be short of breath post hemodialysis. Afebrile. Hemodynamically stable. No chest pain. No new labs are available from today. On 07/02/2024, the patient is still experiencing some shortness of breath. He underwent hemodialysis yesterday. The chest x-ray postdialysis showed a moderate-sized right-sided pleural effusion. Based on ongoing reaccumulation of the right-sided pleural effusion, I performed a bedside thoracentesis and a total of 1.2 L of bloody pleural fluid was aspirated from the right lung. It is possible that the initial thoracentesis was traumatic as the patient's hemoglobin dropped from 7.4 down to 6.6 following the first thoracentesis of the pleural fluid changed from being turbid yellowish into more bloody. Noted the patient received a unit of packed RBC. Hemoglobin has been stable since then at 8.3. Following the thoracentesis, the patient had a chest x-ray that showed no evidence of any pneumothorax. There is interval reduction in the amount of pleural fluid on the right along with some residual atelectatic changes in the right lung base. The patient is currently on 3 L of oxygen by nasal cannula with a pulse ox of 95%. He underwent hemodialysis yesterday. He is looking for a EGD colonoscopy tomorrow. He remains on torsemide 40 mg p.o. per day. He remains on subcutaneous darbepoetin alpha regarding his ongoing anemia. Rest of the medications are essentially unchanged. Objective - Vital Signs Vital signs: Vital Signs Temp 98.1 F 07/01/24 20:00 Pulse 58 L 07/02/24 04:00 Resp 16 07/02/24 04:00 BP 122/77 07/02/24 04:00 Pulse Ox 95 07/02/24 04:00 FiO2 Intake & Output 07/01/24 07/02/24 07/02/24 18:59 06:59 18:59 Intake Total 1460 180 Output Total 6900 Balance -5440 180 Weight 66 kg Intake: Oral 960 180 Hemodialysis 500 Output: Urine 0 Hemodialysis 3700 Hemodialysis Net Amount 3200 - Exam No acute distress, oriented 3. Currently on 4 L. No respiratory distress. HEENT examination is grossly unremarkable. Mucous membranes are moist. No oral lesions. Neck supple. Full range of motion. No adenopathy thyromegaly or neck vein distention. Cardiovascular examination reveals regular rhythm rate. S1-S2 normal. No S3 or S4. No discernible murmur noted. Lungs reveal slightly diminished breath sounds at the right base. Slight dullness at the right base and percussion. The left lung is clear. No adventitious lung sounds. Saturation is 96% on 4 L. Abdomen soft bowel sounds are heard. No masses or tenderness. Extremities are intact. No cyanosis clubbing or edema. Skin is without rash or lesion. Neurologic examination is brief but nonfocal. - Labs CBC & Chem 7: 07/02/24 07:09 06/30/24 10:00 Labs: Abnormal Lab Results - Last 24 Hours (Table) 07/01/24 07/02/24 Range/Units 07:46 07:09 RBC 2.80 L (4.30-5.90) m/uL Hgb 8.3 L (13.0-17.5) gm/dL Hct 27.0 L (39.0-53.0) % MCHC 30.5 L (31.0-37.0) g/dL RDW 17.5 H (11.5-15.5) % Free [place] LC, Quant 15.51 H (0.33-1.94) mg/dL Free Lambda LC, Quant 20.59 H (0.57-2.63) mg/dL Assessment and Plan Plan: Acute shortness of breath, secondary to large right-sided pleural effusion. The patient is postthoracentesis with removal of 1.1 L of transudative fluid from the right lung. Subsequent follow-up showed that the patient had reaccumulation of the right-sided pleural effusion and I agree. Another thoracentesis on this patient on 07/02/2024 where a total of 1.2 L of bloody fluid was aspirated from the right lung. It is possible the initial thoracentesis was traumatic and the patient bled into his pleural space and this is obviously a limited amount of bleed. Acute hypoxic respiratory failure patient remains on 3 L O2 nasal cannula Acute on chronic anemia, could be related to pleural space bleeding following the initial thoracentesis. No evidence of any GI bleed at this point in time. The patient's hemoglobin remained stable. The patient has received units of packed RBC. Valvular heart disease with moderate mitral and tricuspid regurgitation, preserved RV function End-stage renal disease, currently on 3 times a week hemodialysis. The last hemodialysis session was yesterday History of hyperlipidemia. History of hypertension. History of atrial fibrillation. History of cataracts. Previous pacemaker implantation. CAD with previous stent placement. Plan: Hemodialysis was performed yesterday Thoracentesis was performed today and the pleural fluid characteristics was note d EGD and colonoscopy within the next 24 to 48 hours Nephrology follow-up IV iron and Aranesp Hemoglobin is stable Titrate oxygen flow to maintain saturation above 90%, currently on 3 L Torsemide 40 mg p.o. daily Will continue to follow
--- NOTE | 2024-07-02 19:11 | P.PCN ---
Date of Procedure: 07/02/24 Preoperative Diagnosis: Pleural effusion, right Postoperative Diagnosis: Pleural effusion, right Procedure(s) Performed: Thoracentesis, right Anesthesia: local Surgeon: Pham Coles Estimated Blood Loss (ml): 0 Pathology: other Condition: stable Disposition: floor Operative Findings: The procedure was done on the right side A time out was performed and the chest x-ray was reviewed, the appropriate side was confirmed and marked. My hands were washed immediately prior to the procedure. I wore a surgical cap, mask with protective eyewear, sterile gown and sterile gloves throughout the procedure. The patient was prepped and draped in a sterile manner using chlorhexidine scrub after the appropriate level was percussed and confirmed by ultrasound. 1% lidocaine was used to anesthesize the skin, subcutaneous tissue, superior aspect of the rib periosteum and parietal pleura. A finder needle was then introduced over the superior aspect of the rib to locate the pleural fluid; 2colored fluid was aspirated at a depth of approximately 2 cm. A 10-blade scalpel was used to terry the skin at the insertion site. The [id number] needle was then introduced through the skin incision into the pleural space using negative aspiration pressure and the red colometric indicator to confirm appropriate positioning of the needle. The thoracentesis catheter was then threaded without difficulty. 1200 ml of bloody fluid was removed without difficulty. The catheter was then removed. No immediate complications were noted during the procedure. A post-procedure chest x-ray is pending at the time of this note. The fluid will not be sent for studies. Estimated blood loss is 0cc
[2024-07-03] MEDS: MORPHINE SULFATE 4 MG/ML SYRINGE IV PRN (06:47)
[2024-07-03 09:08] LABS: Anisocytosis Slight; Basophils % (A) 0 %; Eosinophils # (A) 0.2 k/uL (0-0.7); Eosinophils % (A) 4 %; HCT 25.2 % (39.0-53.0); HGB 7.9 gm/dL (13.0-17.5); Hypochromasia Marked; Lymphocytes # (A) 0.7 k/uL (1.0-4.8); Lymphocytes % (A) 12 %; MCH 29.4 pg (25.0-35.0); MCHC 31.3 g/dL (31.0-37.0); MCV 93.7 fL (80.0-100.0); Mean Platelet Volume 7.6; Monocytes # (A) 0.5 k/uL (0-1.0); Monocytes % (A) 8 %; Neutrophils # (A) 4.2 k/uL (1.3-7.7); Neutrophils % (A) 73 %; Platelet Count 304 k/uL (150-450); RBC 2.69 m/uL (4.30-5.90); RDW 17.5 % (11.5-15.5); WBC 5.7 k/uL (3.8-10.6)
[2024-07-03 09:28] LABS: African American GFR (CKD) 11 (>60 ml/min/1.73 sqM); Anion Gap 9 mmol/L; Blood Urea Nitrogen 70 mg/dL (9-20); Calcium 9.6 mg/dL (8.4-10.2); Carbon Dioxide 29 mmol/L (22-30); Chloride 96 mmol/L (98-107); Glucose 121 mg/dL (74-99); Non-African American GFR(CKD) 10 (>60 ml/min/1.73 sqM); Sodium 134 mmol/L (137-145)
[2024-07-03 09:36] LABS: Albumin 3.25 g/dL (3.80-4.90); Gamma Globulin 1.03 g/dL (0.70-1.50)
--- NOTE | 2024-07-03 09:51 | P.PN ---
Subjective Patient seen at bedside. No significant overnight events. Patient receiving dialysis while I was in the room. Nephrology following for ESRD (MWF) Patient received thoracentesis yesterday. Without complications. Objective - Vital Signs Vital signs: Vital Signs Temp 98.0 F 07/03/24 08:00 Pulse 79 07/03/24 08:00 Resp 18 07/03/24 08:00 BP 147/69 07/03/24 08:00 Pulse Ox 97 07/03/24 08:14 FiO2 Intake & Output 07/02/24 07/03/24 07/03/24 18:59 06:59 18:59 Intake Total 360 Output Total 50 Balance 360 -50 Weight 66 kg 70 kg Intake: Oral 360 Output: Urine 50 Other: Voiding Method Toilet # Voids 1 # Bowel Movements 1 - Exam Vital signs are stable. General: No acute distress. HEENT: Head exam is unremarkable. On nasal cannula. LUNGS: No audible rhonchi or wheezes. HEART: Rate and Rhythm are regular. ABDOMEN: Nontender. EXTREMITITES: No edema. - Labs CBC & Chem 7: 07/03/24 08:20 07/03/24 08:20 Assessment and Plan Assessment: 1. End-stage renal disease maintained on hemodialysis on Saturday schedule. 2. Volume overload. Status post right thoracentesis with 1.1 L drained June 25, 2024. Transudative. Status post right thoracentesis with 1.2 L bloody fluid drained July 02, 2024. 3. Acute blood loss anemia status post blood transfusion this admission. Hemoglobin 7.9 today decreased from 8.3 yesterday. Iron deficiency noted. s/p IV iron. On Aranesp. Also received IV DDAVP this admission. Hematology also following. Consider endoscopy. Being followed by surgery as well. 4. Chronic kidney disease mineral bone disease maintained on Renvela. Plan: Challenge ultrafiltration. Status post dialysis today, were able to take off 3 L. Maintain torsemide. I have seen and examined the patient with resident and agree with A&P as written. Seen while undergoing HD.
--- NOTE | 2024-07-03 09:55 | XR ---
EXAMINATION TYPE: XR chest 1V DATE OF EXAM: 07/03/2024 COMPARISON: 07/02/2024 INDICATION: Chest pain thoracentesis TECHNIQUE: Single frontal view of the chest is obtained. FINDINGS: The heart size is enlarged. The pulmonary vasculature is normal. There is a small to moderate right pleural effusion. This may be diminished postthoracentesis. No pne umothorax is evident. Pacemaker overlies left chest IMPRESSION: 1. Multiple moderate right pleural effusion. 2. Cardiomegaly [facility], , 07/03/2024 7:53 AM
--- NOTE | 2024-07-03 12:54 | P.PN ---
Subjective Progress Note Date: 07/03/24 This is an 79-year-old gentleman with past medical history significant for end- stage renal disease, anemia, hypercoagulopathy, atrial fibrillation, valvular heart disease, permanent pacemaker, CAD and multiple other medical issues admitted with acute hypoxic respiratory failure, status post right-sided tho racentesis-transudative- for large right-sided pleural effusion, suspecting acute CHF exacerbation. Cytology pending. denies chills or sweats. Reports he feels totally exhausted. Hemoglobin 6.7, 7.4 with repeat hemoglobin pending. denies chest pain or palpitations. Maintaining O2 sats in the low 90s on 4 L nasal cannula. Chest x-ray pending. Afebrile. 06/30/2024 Received 1 unit of packed RBCs yesterday with hemoglobin currently 8.1, platelets 277. No active bleeding reported. slept well in bed without shortness of breath. Denies chest pain, palpitations. Reports nonproductive cough x 2 to 3 weeks. Denies lightheadedness dizziness. Has not yet ambulated. PT consult in place. Chest x-ray completed yesterday afternoon reporting moderate right pleural effusion and consolidation with no sizable pneumothorax. Maintaining O2 sat in the high 90s to 100% on 4 L nasal cannula. Pleural cytology from previous thoracentesis pending. afebrile, normal WBC. 07/01/2024 Currently receiving hemodialysis this morning. Received IV iron. complaining of shortness of breath and feeling tired. currently maintaining O2 sats in the 90s on 4 L nasal cannula. Pleural cytology reported few scattered mixed acute and chronic inflammatory cells with macrophages and reactive mesothelial cells, negative for malignancy. Afebrile. 07/02/2024 report he feels better today, less tired. States his coughing eased up throughout the night and he slept well. Maintained on torsemide. chest x-ray post hemodialysis yesterday reported moderate right pleural effusion and consolidation stable from prior exam . Repeat chest x-ray pending .denies chest pain, palpitations or shortness of breath. Maintaining O2 sats in the high 90s on 4 L nasal cannula. denies lightheadedness dizziness or focal deficits. Denies headache. Denies nausea or vomiting or abdominal pain. Receivied IV DDAVP . Continues on IV iron, Aranesp. hemoglobin stable at 8.3. No active signs of GI bleed. Evaluated by general surgery for EGD and colonoscopy- recommending when medically stable. 07/03/2024 yesterday right thoracentesis repeated with 1200 mL of bloody fluid removed. Reports shortness of breath today mildly improved. chest x-ray pending. Maintaining O2 sats in the high 90s on 5 L nasal cannula. Patient is about to begin with his hemodialysis this morning. Labs pending. Objective - Vital Signs Vital signs: Vital Signs Temp 98.0 F 07/03/24 06:46 Pulse 77 07/03/24 06:46 Resp 22 07/03/24 06:46 BP 163/70 07/03/24 06:46 Pulse Ox 97 07/03/24 08:14 FiO2 Intake & Output 07/02/24 07/03/24 07/03/24 18:59 06:59 18:59 Intake Total 360 Output Total 50 Balance 360 -50 Weight 66 kg 70 kg Intake: Oral 360 Output: Urine 50 Other: Voiding Method Toilet # Voids 1 # Bowel Movements 1 - Exam PHYSICAL EXAM: VITAL SIGNS: [As above] GENERAL: Fatigued ,alert and oriented x 3, sitting up at bedside, no acute distress. HEENT: Normocephalic, conjunctivae normal. eyes normal. Sclera anicteric. NECK: Supple, no JVD. CARDIOVASCULAR: S1, S2 regular. Systolic murmur RESPIRATION: Unlabored, equal air entry ,breath sounds diminished, greatest on the right base. ABDOMEN: Soft, nondistended, nontender, no guarding, no rigidity. +BS EXTR: Warm and dry, no edema, no clubbing or cyanosis. NERVOUS SYSTEM: Cranial N 2-12 grossly normal. No focal deficits. Strength and sensation grossly intact. Skin: Warm and dry, no rash - Labs CBC & Chem 7: 07/03/24 08:20 07/03/24 08:20 Assessment and Plan Assessment: Acute shortness of breath secondary to large right-sided pleural effusion status post right-sided thoracentesis, fluid transudative. Repeat right thoracentesis 07/02/2024. Acute blood loss anemia, status posttransfusion 1 unit packed RBCs Chronic iron deficient anemia. Chronic diastolic CHF End-stage renal disease on hemodialysis, history of cardiorenal syndrome. HD Saturday Chronic atrial fibrillation History of pacemaker implantation, complete heart block CAD Severe pulmonary hypertension Moderate to severe mitral regurgitation Moderate to severe tricuspid regurgitation Multivalvular heart disease including mild aortic stenosis Mild hepatic steatosis Plan: Continue on current medication resume ,monitoring and symptomatic treatment. Chest x-ray, labs pending. hemodialysis today. PT/OT. Prognosis guarded given multiple complex medical issues. The impression and plan of care has been dictated as directed. : I performed a history and examination of this patient, discussed the same with the dictator. I agree with the dictator's note ,documented as a scribe. Any additional findings or plans will be noted.
--- NOTE | 2024-07-03 13:17 | P.PN ---
Subjective Progress Note Date: 07/03/24 CHIEF COMPLAINT: Shortness of breath HISTORY OF PRESENT ILLNESS: Patient admitted to the hospital with shortness of breath and right-sided pleural effusion. His second thoracentesis yesterday with 1.2 L of bloody fluid removed. Patient currently getting hemodialysis today. He reports improvement in his shortness of breath. Patient is on 5 L of oxygen. Patient denies any abdominal pain. Denies any nausea or vomiting. Denies any hematochezia or melanotic stools. Febrile. Hemoglobin 8.3 down to 7.9 PHYSICAL EXAM: VITAL SIGNS: Reviewed GENERAL: Well-developed in no acute distress. HEENT: No sclera icterus. Extraocular movements grossly intact. Moist buccal mucosa. Head is atraumatic, normocephalic. Hears conversational speech. No nasal drainage. NECK: Supple without lymphadenopathy. CHEST: Non-labored respirations and equal bilateral excursions. CARDIOVASCULAR: Palpable 2+ radial pulses. ABDOMEN: Soft. Nondistended. Nontender. MUSCULOSKELETAL: No clubbing or cyanosis. NEUROLOGIC: No focal or lateralizing signs. Cranial nerves II through XII grossly intact. PSYCH: Appropriate affect. Alert and oriented to person, place and time. SKIN: Well perfused. Good skin turgor. ASSESSMENT: 1. Anemia with iron deficiency. No active signs of GI bleeding 2. Right pleural effusion required thoracentesis x 2 3. History of atrial fibrillation, Kash currently on hold 4. End-stage renal disease on hemodialysis PLAN: -Recommend EGD and colonoscopy when medically stable. Awaiting pulmonary clearance -Continue to monitor hemoglobin -Continue to hold Eliquis Physician Cobol Engineer note has been reviewed by physician. Signing provider agrees with the documented findings, assessment, and plan of care. Objective - Vital Signs Vital signs: Vital Signs Temp 98.0 F 07/03/24 08:00 Pulse 72 07/03/24 12:00 Resp 18 07/03/24 12:00 BP 112/59 07/03/24 12:00 Pulse Ox 100 07/03/24 12:00 FiO2 Intake & Output 07/02/24 07/03/24 07/03/24 18:59 06:59 18:59 Intake Total 360 Output Total 50 Balance 360 -50 Weight 66 kg 70 kg Intake: Oral 360 Output: Urine 50 Other: Voiding Method Toilet # Voids 1 # Bowel Movements 1 - Labs CBC & Chem 7: 07/03/24 08:20 07/03/24 08:20 Labs: Abnormal Lab Results - Last 24 Hours (Table) 07/01/24 07/02/24 07/03/24 Range/Units 07:46 07:09 08:20 RBC 2.69 L (4.30-5.90) m/uL Hgb 7.9 L (13.0-17.5) gm/dL Hct 25.2 L (39.0-53.0) % RDW 17.5 H (11.5-15.5) % Lymphocytes # 0.7 L (1.0-4.8) k/uL Sodium (137-145) mmol/L Chloride (98-107) mmol/L BUN (9-20) mg/dL Creatinine (0.66-1.25) mg/dL Glucose (74-99) mg/dL Albumin (PEP) 3.25 L (3.80-4.90) g/dL Uitck-6-Qgjypxtkw 0.64 H (0.10-0.40) g/dL Iiani-3-Sagulfgxz 1.03 H (0.60-1.00) g/dL RBC Folate 1,201 H (280 - 791) ng/mL 07/03/24 Range/Units 08:20 RBC (4.30-5.90) m/uL Hgb (13.0-17.5) gm/dL Hct (39.0-53.0) % RDW (11.5-15.5) % Lymphocytes # (1.0-4.8) k/uL Sodium 134 L (137-145) mmol/L Chloride 96 L (98-107) mmol/L BUN 70 H (9-20) mg/dL Creatinine 5.15 H (0.66-1.25) mg/dL Glucose 121 H (74-99) mg/dL Albumin (PEP) (3.80-4.90) g/dL Jdbhb-4-Pyykcacup (0.10-0.40) g/dL Qfhnf-2-Yecfizzcn (0.60-1.00) g/dL RBC Folate (280 - 791) ng/mL
--- NOTE | 2024-07-03 14:15 | P.PN ---
Subjective Progress Note Date: 07/03/24 79-year-old male who comes into the emergency room, on June 25, complaining of shortness of breath. The patient states that the shortness of breath has gotten worse over the last few days. The patient was seen in the emergency department, discovered to have a large right sided pleural effusion. We ended up seeing the patient in the emergency department, room #6. The patient had an elevated BNP. His CT scan was consistent with CHF. He is on 4 L of oxygen with saturations of 91%. He was getting saline at 75 cc an hour and I turned the fluid down to 20 cc an hour. Will plan on doing an ultrasound, to see if he has fluid, that can be drained via thoracentesis. He has a history of atrial fibrillation, heart murmur, kidney failure, on hemodialysis, previous pacemaker implantation, and cardiac stents for CAD. Current labs include a white count 7.5, hemoglobin 9, hematocrit 30, platelet count 303,000. Sodium 139, potassium 3.8, chlorides 97, CO2 31, BUN 26, creatinine 4.87. Troponins were 0.015, 0.017, and 0.021. N-terminal proBNP was 38,200. The patient's chest ultrasound showed a right-sided pleural effusion with a pocket size of 11.3 cm. Distance from the right skin surface to the fluid, was 1.3 cm. Progress note dated June 27, 2024. 79-year-old male who we saw in the emergency department yesterday. He was admitted with a right-sided pleural effusion. He had thoracentesis in the emergency department. He also received hemodialysis in the emergency [facility]. He is seen today in room 377. He is on room air. He is not receiving any IV fluids. His fluid analysis turned out to be a transudate. 1100 cc of light yellow fluid was removed. He tolerated the procedure well. No new labs today. Progress note dated June 28, 2024. 79-year-old male seen today in room 377. The patient is currently on 4 L of oxygen. No IV fluids. The patient has hemodialysis planned on Saturday, Saturday, and Saturday. The patient had a right-sided thoracentesis performed in the emergency department. We removed 1100 cc of transudative fluid. He tolerated the procedure well. Current labs include a white count 8.8, hemoglobin 7.4, hematocrit 24.2, and platelet count 267,000. Sodium 134, potassium 4.2, chloride 96, CO2 31, BUN 33, creatinine 5.45. Procalcitonin level was 0.53. On today's evaluation of 06/29/2024, the patient is being seen for a follow-up. Patient has end-stage renal disease on hemodialysis. The patient also had right-sided pleural effusion for which thoracentesis was done on 06/26/2024 and a total of 1.1 L of pleural fluid was aspirated. Based on the fluid chemistry, this seems to be a transudate based on the low LDH and low protein. The patient remains on 4 L of oxygen by nasal cannula with a pulse ox of 97%. A repeat chest x-ray was done today and it shows a residual right-sided pleural effusion with some reaccumulation. The patient was seen by nephrology in follow-up. The patient will receive ultrafiltration as he is able to tolerate. Noted that he does have a chronic anemia and iron deficiency was noted. Blood work from today shows a hemoglobin of 6.6 with a white cell count of 7.6 and a platelet count of 222. The serum iron was 24. The BUN is 33 with a creatinine of 5.4 and a sodium levels at 134. Echocardiogram showed preserved LV function with moderate mitral stenosis and moderate mitral regurgitation and moderate degree of tricuspid regurgitation and severe pulmonary hypertension. CT of the chest was done on 06/25/2024 at time of admission showed pulm vas congestion and a moderate-sized right-sided pleural effusion along with cardiomegaly. Last 06/30/2024, the patient is being seen for a follow-up. The patient is stable. No significant respiratory distress at this point in time. He is on 4 L of oxygen by nasal cannula with a pulse ox of 99 to 100%. Afebrile. Hemodynamically stable. As mentioned, the repeat chest x-ray showed a recurrence of the right-sided pleural effusion. Nevertheless, the patient is undergoing hemodialysis periodically and next session is tomorrow. He received a unit of packed RBC yesterday and hemoglobin is up to 8.1. WBC count is at 7.4. BUN is 45 with a creatinine of 4.29 and sodium levels of 136. The patient has no signs of any GI bleeding at this point in time. The plan is to undergo hemodialysis tomorrow. He was started on torsemide 40 mg 1 tablet a day. Nephrology is on the case. On 07/01/2024, the patient is complaining of some shortness of breath. The patient is currently on 4 L of oxygen by nasal cannula. He is in the process of undergoing hemodialysis. I made recommendations to repeat a chest x-ray following hemodialysis ultrafiltration. Will likely need another thoracentesis of the right lung if he continues to be short of breath post hemodialysis. Afebrile. Hemodynamically stable. No chest pain. No new labs are available from today. On 07/02/2024, the patient is still experiencing some shortness of breath. He underwent hemodialysis yesterday. The chest x-ray postdialysis showed a moderate-sized right-sided pleural effusion. Based on ongoing reaccumulation of the right-sided pleural effusion, I performed a bedside thoracentesis and a total of 1.2 L of bloody pleural fluid was aspirated from the right lung. It is possible that the initial thoracentesis was traumatic as the patient's hemoglobin dropped from 7.4 down to 6.6 following the first thoracentesis of the pleural fluid changed from being turbid yellowish into more bloody. Noted the patient received a unit of packed RBC. Hemoglobin has been stable since then at 8.3. Following the thoracentesis, the patient had a chest x-ray that showed no evidence of any pneumothorax. There is interval reduction in the amount of pleural fluid on the right along with some residual atelectatic changes in the right lung base. The patient is currently on 3 L of oxygen by nasal cannula with a pulse ox of 95%. He underwent hemodialysis yesterday. He is looking for a EGD colonoscopy tomorrow. He remains on torsemide 40 mg p.o. per day. He remains on subcutaneous darbepoetin alpha regarding his ongoing anemia. Rest of the medications are essentially unchanged. On 07/03/2024, the patient is undergoing hemodialysis. I performed a thoracentesis on this patient yesterday and total of 1.2 L of fluid was aspirated. He is not having any major respiratory difficulties for now. He remains on 5 L of oxygen by nasal cannula. The plan is to complete hemodialysis. Hemoglobin is at 7.9. There is still ongoing interest to undergo EGD for regarding his chronic anemia and previous hemoglobin drop. Otherwise, no other significant events overnight. Sodium is at 134, BUN is at 17 with a creatinine of 5.1. Bicarb is at 29. Chloride is 96. Objective - Vital Signs Vital signs: Vital Signs Temp 98.0 F 07/03/24 08:00 Pulse 71 07/03/24 08:00 Resp 18 07/03/24 08:00 BP 147/69 07/03/24 08:00 Pulse Ox 97 07/03/24 08:14 FiO2 Intake & Output 07/02/24 07/03/24 07/03/24 18:59 06:59 18:59 Intake Total 360 Output Total 50 Balance 360 -50 Weight 66 kg 70 kg Intake: Oral 360 Output: Urine 50 Other: Voiding Method Toilet # Voids 1 # Bowel Movements 1 - Exam No acute distress, oriented 3. Currently on 4 L. No respiratory distress. HEENT examination is grossly unremarkable. Mucous membranes are moist. No oral lesions. Neck supple. Full range of motion. No adenopathy thyromegaly or neck vein distention. Cardiovascular examination reveals regular rhythm rate. S1-S2 normal. No S3 or S4. No discernible murmur noted. Lungs reveal slightly diminished breath sounds at the right base. Slight dullness at the right base and percussion. The left lung is clear. No adventitious lung sounds. Saturation is 96% on 4 L. Abdomen soft bowel sounds are heard. No masses or tenderness. Extremities are intact. No cyanosis clubbing or edema. Skin is without rash or lesion. Neurologic examination is brief but nonfocal. - Labs CBC & Chem 7: 07/03/24 08:20 07/03/24 08:20 Labs: Abnormal Lab Results - Last 24 Hours (Table) 07/01/24 07/03/24 07/03/24 Range/Units 07:46 08:20 08:20 RBC 2.69 L (4.30-5.90) m/uL Hgb 7.9 L (13.0-17.5) gm/dL Hct 25.2 L (39.0-53.0) % RDW 17.5 H (11.5-15.5) % Lymphocytes # 0.7 L (1.0-4.8) k/uL Sodium 134 L (137-145) mmol/L Chloride 96 L (98-107) mmol/L BUN 70 H (9-20) mg/dL Creatinine 5.15 H (0.66-1.25) mg/dL Glucose 121 H (74-99) mg/dL Albumin (PEP) 3.25 L (3.80-4.90) g/dL Jdzxb-1-Ijgibngcn 0.64 H (0.10-0.40) g/dL Kmgjw-0-Bowmifvmx 1.03 H (0.60-1.00) g/dL Assessment and Plan Plan: Acute shortness of breath, secondary to large right-sided pleural effusion. The patient is postthoracentesis with removal of 1.1 L of transudative fluid from the right lung. Subsequent follow-up showed that the patient had reaccumulation of the right-sided pleural effusion and I agree. Another thoracentesis on this patient on 07/02/2024 where a total of 1.2 L of bloody fluid was aspirated from the right lung. It is possible the initial thoracentesis was traumatic and the patient bled into his pleural space and this is obviously a limited amount of bleed. Hemoglobin remained stable. Respiratory status remained stable on 4-5 L of oxygen by nasal cannula. Acute hypoxic respiratory failure patient remains on 45 L L O2 nasal cannula Acute on chronic anemia, could be related to pleural space bleeding following the initial thoracentesis. No evidence of any GI bleed at this point in time. The patient's hemoglobin remained stable. The patient has received units of packed RBC. Valvular heart disease with moderate mitral and tricuspid regurgitation, preserved RV function End-stage renal disease, currently on 3 times a week hemodialysis. The last hemodialysis session was yesterday History of hyperlipidemia. History of hypertension. History of atrial fibrillation. History of cataracts. Previous pacemaker implantation. CAD with previous stent placement. Plan: Hemodialysis is to be completed today with a total of 3 L of ultrafiltration. Monitor oxygenation and gradual wean of the FiO2 as tolerated. Postthoracentesis chest x-ray showed improvement in volume status in the right lung without evidence of any pneumothorax. Thoracentesis was performed today and the pleural fluid characteristics was noted EGD and colonoscopy within the next 24 to 48 hours Nephrology follow-up IV iron and Aranesp Hemoglobin is stable Titrate oxygen flow to maintain saturation above 90%, currently on 5 L Torsemide 40 mg p.o. daily Will continue to follow
[2024-07-04 08:51] LABS: Anisocytosis Slight; HCT 31.1 % (39.0-53.0); Hypochromasia Marked; MCH 30.8 pg (25.0-35.0); MCHC 31.7 g/dL (31.0-37.0); MCV 97.2 fL (80.0-100.0); Macrocytosis Slight; Mean Platelet Volume 7.8; Platelet Count 310 k/uL (150-450); RDW 17.3 % (11.5-15.5); WBC 10.2 k/uL (3.8-10.6)
[2024-07-04 08:53] LABS: HGB 9.9 gm/dL (13.0-17.5)
--- NOTE | 2024-07-04 09:19 | P.PN ---
Subjective Progress Note Date: 07/04/24 Patient shabbir stable. On exam vital signs are stable abdomen is soft Patient will be scheduled for EGD colonoscopy when medically stable. Objective - Vital Signs Vital signs: Vital Signs Temp 97.9 F 07/04/24 04:00 Pulse 84 07/04/24 04:00 Resp 18 07/04/24 04:00 BP 160/64 07/04/24 04:00 Pulse Ox 90 L 07/04/24 08:44 FiO2 Intake & Output 07/03/24 07/04/24 07/04/24 18:59 06:59 18:59 Intake Total 118 Output Total 0 Balance 118 Weight 67.5 kg Intake: Oral 118 Output: Urine 0 Stool 0 Other: Voiding Method Toilet # Voids 0 # Bowel Movements 0 - Labs CBC & Chem 7: 07/04/24 07:22 07/03/24 08:20 Labs: Abnormal Lab Results - Last 24 Hours (Table) 07/01/24 07/02/24 07/03/24 Range/Units 07:46 07:09 08:20 RBC (4.30-5.90) m/uL Hgb (13.0-17.5) gm/dL Hct (39.0-53.0) % RDW (11.5-15.5) % Sodium 134 L (137-145) mmol/L Chloride 96 L (98-107) mmol/L BUN 70 H (9-20) mg/dL Creatinine 5.15 H (0.66-1.25) mg/dL Glucose 121 H (74-99) mg/dL Albumin (PEP) 3.25 L (3.80-4.90) g/dL Uevxx-2-Ryokpvmvk 0.64 H (0.10-0.40) g/dL Aixfg-1-Vrcpqhppt 1.03 H (0.60-1.00) g/dL RBC Folate 1,201 H (280 - 791) ng/mL 07/04/24 Range/Units 07:22 RBC 3.20 L (4.30-5.90) m/uL Hgb 9.9 L D (13.0-17.5) gm/dL Hct 31.1 L (39.0-53.0) % RDW 17.3 H (11.5-15.5) % Sodium (137-145) mmol/L Chloride (98-107) mmol/L BUN (9-20) mg/dL Creatinine (0.66-1.25) mg/dL Glucose (74-99) mg/dL Albumin (PEP) (3.80-4.90) g/dL Xkppw-0-Konxrmmbx (0.10-0.40) g/dL Iaqbt-8-Fbktggswt (0.60-1.00) g/dL RBC Folate (280 - 791) ng/mL
[2024-07-04 09:27] LABS: Lymphocytes # (M) 1.12 k/uL (1.0-4.8); Monocytes # (M) 1.02 k/uL (0-1.0); Neutrophils # (M) 7.96 k/uL (1.3-7.7); Neutrophils % (M) 78 %; Nucleated Red Blood Cells 0 /100 WBC (0-0); Total Cells Counted 100
--- NOTE | 2024-07-04 14:27 | P.PN ---
Subjective Progress Note Date: 07/04/24 79-year-old male who comes into the emergency room, on June 25, complaining of shortness of breath. The patient states that the shortness of breath has gotten worse over the last few days. The patient was seen in the emergency department, discovered to have a large right sided pleural effusion. We ended up seeing the patient in the emergency department, room #6. The patient had an elevated BNP. His CT scan was consistent with CHF. He is on 4 L of oxygen with saturations of 91%. He was getting saline at 75 cc an hour and I turned the fluid down to 20 cc an hour. Will plan on doing an ultrasound, to see if he has fluid, that can be drained via thoracentesis. He has a history of atrial fibrillation, heart murmur, kidney failure, on hemodialysis, previous pacemaker implantation, and cardiac stents for CAD. Current labs include a white count 7.5, hemoglobin 9, hematocrit 30, platelet count 303,000. Sodium 139, potassium 3.8, chlorides 97, CO2 31, BUN 26, creatinine 4.87. Troponins were 0.015, 0.017, and 0.021. N-terminal proBNP was 38,200. The patient's chest ultrasound showed a right-sided pleural effusion with a pocket size of 11.3 cm. Distance from the right skin surface to the fluid, was 1.3 cm. Progress note dated June 27, 2024. 79-year-old male who we saw in the emergency department yesterday. He was admitted with a right-sided pleural effusion. He had thoracentesis in the emergency department. He also received hemodialysis in the emergency [facility]. He is seen today in room 377. He is on room air. He is not receiving any IV fluids. His fluid analysis turned out to be a transudate. 1100 cc of light yellow fluid was removed. He tolerated the procedure well. No new labs today. Progress note dated June 28, 2024. 79-year-old male seen today in room 377. The patient is currently on 4 L of oxygen. No IV fluids. The patient has hemodialysis planned on Saturday, Saturday, and Saturday. The patient had a right-sided thoracentesis performed in the emergency department. We removed 1100 cc of transudative fluid. He tolerated the procedure well. Current labs include a white count 8.8, hemoglobin 7.4, hematocrit 24.2, and platelet count 267,000. Sodium 134, potassium 4.2, chloride 96, CO2 31, BUN 33, creatinine 5.45. Procalcitonin level was 0.53. On today's evaluation of 06/29/2024, the patient is being seen for a follow-up. Patient has end-stage renal disease on hemodialysis. The patient also had right-sided pleural effusion for which thoracentesis was done on 06/26/2024 and a total of 1.1 L of pleural fluid was aspirated. Based on the fluid chemistry, this seems to be a transudate based on the low LDH and low protein. The patient remains on 4 L of oxygen by nasal cannula with a pulse ox of 97%. A repeat chest x-ray was done today and it shows a residual right-sided pleural effusion with some reaccumulation. The patient was seen by nephrology in follow-up. The patient will receive ultrafiltration as he is able to tolerate. Noted that he does have a chronic anemia and iron deficiency was noted. Blood work from today shows a hemoglobin of 6.6 with a white cell count of 7.6 and a platelet count of 222. The serum iron was 24. The BUN is 33 with a creatinine of 5.4 and a sodium levels at 134. Echocardiogram showed preserved LV function with moderate mitral stenosis and moderate mitral regurgitation and moderate degree of tricuspid regurgitation and severe pulmonary hypertension. CT of the chest was done on 06/25/2024 at time of admission showed pulm vas congestion and a moderate-sized right-sided pleural effusion along with cardiomegaly. Last 06/30/2024, the patient is being seen for a follow-up. The patient is stable. No significant respiratory distress at this point in time. He is on 4 L of oxygen by nasal cannula with a pulse ox of 99 to 100%. Afebrile. Hemodynamically stable. As mentioned, the repeat chest x-ray showed a recurrence of the right-sided pleural effusion. Nevertheless, the patient is undergoing hemodialysis periodically and next session is tomorrow. He received a unit of packed RBC yesterday and hemoglobin is up to 8.1. WBC count is at 7.4. BUN is 45 with a creatinine of 4.29 and sodium levels of 136. The patient has no signs of any GI bleeding at this point in time. The plan is to undergo hemodialysis tomorrow. He was started on torsemide 40 mg 1 tablet a day. Nephrology is on the case. On 07/01/2024, the patient is complaining of some shortness of breath. The patient is currently on 4 L of oxygen by nasal cannula. He is in the process of undergoing hemodialysis. I made recommendations to repeat a chest x-ray following hemodialysis ultrafiltration. Will likely need another thoracentesis of the right lung if he continues to be short of breath post hemodialysis. Afebrile. Hemodynamically stable. No chest pain. No new labs are available from today. On 07/02/2024, the patient is still experiencing some shortness of breath. He underwent hemodialysis yesterday. The chest x-ray postdialysis showed a moderate-sized right-sided pleural effusion. Based on ongoing reaccumulation of the right-sided pleural effusion, I performed a bedside thoracentesis and a total of 1.2 L of bloody pleural fluid was aspirated from the right lung. It is possible that the initial thoracentesis was traumatic as the patient's hemoglobin dropped from 7.4 down to 6.6 following the first thoracentesis of the pleural fluid changed from being turbid yellowish into more bloody. Noted the patient received a unit of packed RBC. Hemoglobin has been stable since then at 8.3. Following the thoracentesis, the patient had a chest x-ray that showed no evidence of any pneumothorax. There is interval reduction in the amount of pleural fluid on the right along with some residual atelectatic changes in the right lung base. The patient is currently on 3 L of oxygen by nasal cannula with a pulse ox of 95%. He underwent hemodialysis yesterday. He is looking for a EGD colonoscopy tomorrow. He remains on torsemide 40 mg p.o. per day. He remains on subcutaneous darbepoetin alpha regarding his ongoing anemia. Rest of the medications are essentially unchanged. On 07/03/2024, the patient is undergoing hemodialysis. I performed a thoracentesis on this patient yesterday and total of 1.2 L of fluid was aspirated. He is not having any major respiratory difficulties for now. He remains on 5 L of oxygen by nasal cannula. The plan is to complete hemodialysis. Hemoglobin is at 7.9. There is still ongoing interest to undergo EGD for regarding his chronic anemia and previous hemoglobin drop. Otherwise, no other significant events overnight. Sodium is at 134, BUN is at 17 with a creatinine of 5.1. Bicarb is at 29. Chloride is 96. On 07/04/2024, patient is resting comfortably in bed. No specific complaints. Remains on Demadex 40 mg p.o. daily. Oxygenation is also stable and the patient is currently on status of oxygen by nasal cannula with a pulse ox of 99%. No significant chest pain or worsening shortness of breath. He is post thoracentesis of the right lung on 2 separate occasions. Hemoglobin is at 9.9, platelet count is at 310. No other new electrolytes for now. The patient remains on aspirin. I Objective - Vital Signs Vital signs: Vital Signs Temp 97.9 F 07/04/24 04:00 Pulse 84 07/04/24 04:00 Resp 18 07/04/24 04:00 BP 160/64 07/04/24 04:00 Pulse Ox 90 L 07/04/24 08:44 FiO2 Intake & Output 07/03/24 07/04/24 07/04/24 18:59 06:59 18:59 Intake Total 118 Output Total 0 Balance 118 Weight 67.5 kg Intake: Oral 118 Output: Urine 0 Stool 0 Other: Voiding Method Toilet # Voids 0 # Bowel Movements 0 - Exam No acute distress, oriented 3. Currently on 3 L. No respiratory distress. HEENT examination is grossly unremarkable. Mucous membranes are moist. No oral lesions. Neck supple. Full range of motion. No adenopathy thyromegaly or neck vein distention. Cardiovascular examination reveals regular rhythm rate. S1-S2 normal. No S3 or S4. No discernible murmur noted. Lungs reveal slightly diminished breath sounds at the right base. Slight dullness at the right base and percussion. The left lung is clear. No adventitious lung sounds. Saturation is 96% on 4 L. Abdomen soft bowel sounds are heard. No masses or tenderness. Extremities are intact. No cyanosis clubbing or edema. Skin is without rash or lesion. Neurologic examination is brief but nonfocal. - Labs CBC & Chem 7: 07/04/24 07:22 07/03/24 08:20 Labs: Abnormal Lab Results - Last 24 Hours (Table) 07/01/24 07/02/24 07/03/24 Range/Units 07:46 07:09 08:20 RBC 2.69 L (4.30-5.90) m/uL Hgb 7.9 L (13.0-17.5) gm/dL Hct 25.2 L (39.0-53.0) % RDW 17.5 H (11.5-15.5) % Lymphocytes # 0.7 L (1.0-4.8) k/uL Sodium (137-145) mmol/L Chloride (98-107) mmol/L BUN (9-20) mg/dL Creatinine (0.66-1.25) mg/dL Glucose (74-99) mg/dL Albumin (PEP) 3.25 L (3.80-4.90) g/dL Qzfhe-0-Pryeehbsp 0.64 H (0.10-0.40) g/dL Ynqdp-8-Aadnmbsds 1.03 H (0.60-1.00) g/dL RBC Folate 1,201 H (280 - 791) ng/mL 07/03/24 Range/Units 08:20 RBC (4.30-5.90) m/uL Hgb (13.0-17.5) gm/dL Hct (39.0-53.0) % RDW (11.5-15.5) % Lymphocytes # (1.0-4.8) k/uL Sodium 134 L (137-145) mmol/L Chloride 96 L (98-107) mmol/L BUN 70 H (9-20) mg/dL Creatinine 5.15 H (0.66-1.25) mg/dL Glucose 121 H (74-99) mg/dL Albumin (PEP) (3.80-4.90) g/dL Zswrr-8-Oyielwsoz (0.10-0.40) g/dL Qdeny-8-Wpnvfdwkx (0.60-1.00) g/dL RBC Folate (280 - 791) ng/mL Assessment and Plan Plan: Acute shortness of breath, secondary to large right-sided pleural effusion. The patient is postthoracentesis with removal of 1.1 L of transudative fluid from the right lung. Subsequent follow-up showed that the patient had reaccumulation of the right-sided pleural effusion and I agree. Another thoracentesis on this patient on 07/02/2024 where a total of 1.2 L of bloody fluid was aspirated from the right lung. It is possible the initial thoracentesis was traumatic and the patient bled into his pleural space and this is obviously a limited amount of bleed. Hemoglobin remained stable. Respiratory status remained stable on 3 L of oxygen by nasal cannula. Acute hypoxic respiratory failure patient remains on 3 L O2 nasal cannula Acute on chronic anemia, could be related to pleural space bleeding following the initial thoracentesis. No evidence of any GI bleed at this point in time. The patient's hemoglobin remained stable. The patient has received units of packed RBC. Valvular heart disease with moderate mitral and tricuspid regurgitation, preserved RV function End-stage renal disease, currently on 3 times a week hemodialysis. The last hemodialysis session was yesterday History of hyperlipidemia. History of hypertension. History of atrial fibrillation. History of cataracts. Previous pacemaker implantation. CAD with previous stent placement. Plan: Hemodialysis was performed yesterday Monitor oxygenation and gradual wean of the FiO2 as tolerated. The patient is currently on 3 L of O2 nasal cannula Postthoracentesis chest x-ray showed improvement in volume status in the right lung without evidence of any pneumothorax. Thoracentesis was performed today and the pleural fluid characteristics was noted EGD and colonoscopy within the next 24 to 48 hours Nephrology follow-up IV iron and Aranesp Hemoglobin is stable Titrate oxygen flow to maintain saturation above 90%, currently on 3 L O2 nasal cannula Torsemide 40 mg p.o. daily Repeat chest x-ray in the morning Will continue to follow
--- NOTE | 2024-07-04 16:05 | P.PN ---
Subjective Progress Note Date: 07/04/24 79-year-old male who comes into the emergency room, on June 25, complaining of shortness of breath. The patient states that the shortness of breath has gotten worse over the last few days. The patient was seen in the emergency department, discovered to have a large right sided pleural effusion. We ended up seeing the patient in the emergency department, room #6. The patient had an elevated BNP. His CT scan was consistent with CHF. He is on 4 L of oxygen with saturations of 91%. He was getting saline at 75 cc an hour and I turned the fluid down to 20 cc an hour. Will plan on doing an ultrasound, to see if he has fluid, that can be drained via thoracentesis. He has a history of atrial fibrillation, heart murmur, kidney failure, on hemodialysis, previous pacemaker implantation, and cardiac stents for CAD. Current labs include a white count 7.5, hemoglobin 9, hematocrit 30, platelet count 303,000. Sodium 139, potassium 3.8, chlorides 97, CO2 31, BUN 26, creatinine 4.87. Troponins were 0.015, 0.017, and 0.021. N-terminal proBNP was 38,200. The patient's chest ultrasound showed a right-sided pleural effusion with a pocket size of 11.3 cm. Distance from the right skin surface to the fluid, was 1.3 cm. Objective - Vital Signs Vital signs: Vital Signs Temp 97.9 F 07/04/24 04:00 Pulse 84 07/04/24 04:00 Resp 18 07/04/24 04:00 BP 160/64 07/04/24 04:00 Pulse Ox 90 L 07/04/24 08:44 FiO2 Intake & Output 07/03/24 07/04/24 07/04/24 18:59 06:59 18:59 Intake Total 118 240 Output Total 0 Balance 118 240 Weight 67.5 kg Intake: Oral 118 240 Output: Urine 0 Stool 0 Other: Voiding Method Toilet # Voids 0 # Bowel Movements 0 - Exam No acute distress, oriented 3. Currently on 3 L. No respiratory distress. HEENT examination is grossly unremarkable. Mucous membranes are moist. No oral lesions. Neck supple. Full range of motion. No adenopathy thyromegaly or neck vein dist ention. Cardiovascular examination reveals regular rhythm rate. S1-S2 normal. No S3 or S4. No discernible murmur noted. Lungs reveal slightly diminished breath sounds at the right base. Slight dul lness at the right base and percussion. The left lung is clear. No adventitious lung sounds. Saturation is 96% on 4 L.Abdomen soft bowel sounds are heard. No masses or tenderness. Extremities are intact. No cyanosis clubbing or edema. Skin is without rash or lesion. Neurologic examination is brief but nonfocal. - Labs CBC & Chem 7: 07/04/24 07:22 07/03/24 08:20 Labs: Abnormal Lab Results - Last 24 Hours (Table) 07/04/24 Range/Units 07:22 RBC 3.20 L (4.30-5.90) m/uL Hgb 9.9 L D (13.0-17.5) gm/dL Hct 31.1 L (39.0-53.0) % RDW 17.3 H (11.5-15.5) % Neutrophils # (Manual) 7.96 H (1.3-7.7) k/uL Monocytes # (Manual) 1.02 H (0-1.0) k/uL Assessment and Plan Assessment: 1. Acute shortness of breath, secondary to large right-sided pleural effusion. The patient is postthoracentesis with removal of 1.1 L of transudative fluid from the right lung. Subsequent follow-up showed that the patient had reaccumulation of the right-sided pleural effusion and I agree. -- Repeat thoracentesis on this patient on 07/02/2024 where a total of 1.2 L of bloody fluid was aspirated from the right lung. It is possible the initial thoracentesis was traumatic and the patient bled into his pleural space and this is obviously a limited amount of bleed. Hemoglobin remained stable. Respiratory status remained stable on 3 L of oxygen by nasal cannula. 2. Acute hypoxic respiratory failure patient remains on 3 L O2 nasal cannula 3. Acute on chronic anemia, could be related to pleural space bleeding following the initial thoracentesis. No evidence of any GI bleed at this point in time. The patient's hemoglobin remained stable. The patient has received units of packed RBC. 4. End-stage renal disease, currently on 3 times a week hemodialysis. The last hemodialysis session was yesterday 5. History of hyperlipidemia; Lipitor 40 mg p.o. nightly. 6. History of hypertension; torsemide 40 mg daily. 7. History of atrial fibrillation. 8. CAD with previous stent placement.
--- NOTE | 2024-07-05 07:05 | XR ---
EXAMINATION TYPE: XR chest 1V portable DATE OF EXAM: 07/05/2024 COMPARISON: 07/03/2024 HISTORY: Pleural effusion TECHNIQUE: Single frontal view of the chest is obtained. FINDINGS: There is a 2-lead cardiac pacemaker. There is mild cardiomegaly and mild pulmonary vascular congestio n. There is a moderate right pleural effusion unchanged compared to previous. There is no left pleura l effusion. There is no pneumothorax. IMPRESSION: Acute cardiopulmonary disease with no significant interval change. [facility], , 07/05/2024 7:03 AM
[2024-07-05 08:46] LABS: African American GFR (CKD) 10 (>60 ml/min/1.73 sqM); Anion Gap 18 mmol/L; Anisocytosis Slight; Basophils # (A) 0.1 k/uL (0-0.2); Basophils % (A) 1 %; Blood Urea Nitrogen 86 mg/dL (9-20); Calcium 10.5 mg/dL (8.4-10.2); Carbon Dioxide 18 mmol/L (22-30); Chloride 96 mmol/L (98-107); Eosinophils # (A) 0.4 k/uL (0-0.7); Eosinophils % (A) 4 %; Glucose 85 mg/dL (74-99); HCT 29.2 % (39.0-53.0); Hypochromasia Marked; Lymphocytes % (A) 10 %; MCH 29.8 pg (25.0-35.0); MCHC 30.9 g/dL (31.0-37.0); MCV 96.4 fL (80.0-100.0); Macrocytosis Slight; Mean Platelet Volume 7.5; Monocytes # (A) 0.8 k/uL (0-1.0); Monocytes % (A) 8 %; Neutrophils # (A) 7.1 k/uL (1.3-7.7); Neutrophils % (A) 73 %; Non-African American GFR(CKD) 8 (>60 ml/min/1.73 sqM); Platelet Count 348 k/uL (150-450); Potassium 5.5 mmol/L (3.5-5.1); RBC 3.03 m/uL (4.30-5.90); Sodium 132 mmol/L (137-145); WBC 9.8 k/uL (3.8-10.6)
--- NOTE | 2024-07-05 09:23 | P.PN ---
Subjective Progress Note Date: 07/05/24 Patient remains essentially unchanged. On exam vital signs appear stable. Abdomen soft. Patient will undergo upper and lower endoscopy when medically stable. Objective - Vital Signs Vital signs: Vital Signs Temp 98 F 07/04/24 20:00 Pulse 84 07/05/24 04:00 Resp 18 07/05/24 04:00 BP 121/54 07/05/24 04:00 Pulse Ox 99 07/05/24 04:00 FiO2 Intake & Output 07/04/24 07/05/24 07/05/24 18:59 06:59 18:59 Intake Total 240 Balance 240 Weight 67.6 kg Intake: Oral 240 Other: Voiding Method Toilet # Voids 0 1 - Labs CBC & Chem 7: 07/05/24 07:51 07/05/24 07:51 Labs: Abnormal Lab Results - Last 24 Hours (Table) 07/04/24 07/05/24 07/05/24 Range/Units 07:22 07:51 07:51 RBC 3.03 L (4.30-5.90) m/uL Hgb 9.0 L (13.0-17.5) gm/dL Hct 29.2 L (39.0-53.0) % MCHC 30.9 L (31.0-37.0) g/dL RDW 17.0 H (11.5-15.5) % Neutrophils # (Manual) 7.96 H (1.3-7.7) k/uL Monocytes # (Manual) 1.02 H (0-1.0) k/uL Sodium 132 L (137-145) mmol/L Potassium 5.5 H (3.5-5.1) mmol/L Chloride 96 L (98-107) mmol/L Carbon Dioxide 18 L (22-30) mmol/L BUN 86 H (9-20) mg/dL Creatinine 5.85 H (0.66-1.25) mg/dL Calcium 10.5 H (8.4-10.2) mg/dL
[2024-07-05] MEDS: PEG 3350 (420 GM/BTL) + LYTES 4,000 ML BOTTLE PO ONE (09:45)
--- NOTE | 2024-07-05 11:13 | P.PN ---
Subjective Patient seen at bedside. No significant overnight events. Nephrology following for ESRD (MWF) Patient received another thoracentesis July 02, 2024. Resting in bed. Objective - Vital Signs Vital signs: Vital Signs Temp 98.0 F 07/05/24 08:00 Pulse 74 07/05/24 08:00 Resp 18 07/05/24 08:00 BP 131/60 07/05/24 08:00 Pulse Ox 99 07/05/24 08:00 FiO2 Intake & Output 07/04/24 07/05/24 07/05/24 18:59 06:59 18:59 Intake Total 240 Balance 240 Weight 67.6 kg Intake: Oral 240 Other: Voiding Method Toilet # Voids 0 1 - Labs CBC & Chem 7: 07/05/24 07:51 07/05/24 07:51 Labs: Abnormal Lab Results - Last 24 Hours (Table) 07/05/24 07/05/24 Range/Units 07:51 07:51 RBC 3.03 L (4.30-5.90) m/uL Hgb 9.0 L (13.0-17.5) gm/dL Hct 29.2 L (39.0-53.0) % MCHC 30.9 L (31.0-37.0) g/dL RDW 17.0 H (11.5-15.5) % Sodium 132 L (137-145) mmol/L Potassium 5.5 H (3.5-5.1) mmol/L Chloride 96 L (98-107) mmol/L Carbon Dioxide 18 L (22-30) mmol/L BUN 86 H (9-20) mg/dL Creatinine 5.85 H (0.66-1.25) mg/dL Calcium 10.5 H (8.4-10.2) mg/dL Assessment and Plan Assessment: 1. End-stage renal disease maintained on hemodialysis on Saturday schedule. 2. Volume overload. Status post right thoracentesis with 1.1 L drained June 25, 2024. Transudative. Status post right thoracentesis with 1.2 L bloody fluid drained July 02, 2024. 3. Acute blood loss anemia status post blood transfusion this admission. Hemoglobin 7.9 today decreased from 8.3 yesterday. Iron deficiency noted. s/p IV iron. On Aranesp. Also received IV DDAVP this admission. Hematology also following. Consider endoscopy. Being followed by surgery as well. 4. Chronic kidney disease mineral bone disease maintained on Renvela. Calcium high at 10.5. Plan: Hemodialysis tomorrow. Challenge ultrafiltration. EGD and colonoscopy pending. Lokelma 10 g once today. Check secondary workup for hypercalcemia. Not on any calcium or vitamin D supplements.
--- NOTE | 2024-07-05 11:59 | P.PN ---
Subjective Progress Note Date: 07/05/24 79-year-old male who comes into the emergency room, on June 25, complaining of shortness of breath. The patient states that the shortness of breath has gotten worse over the last few days. The patient was seen in the emergency department, discovered to have a large right sided pleural effusion. We ended up seeing the patient in the emergency department, room #6. The patient had an elevated BNP. His CT scan was consistent with CHF. He is on 4 L of oxygen with saturations of 91%. He was getting saline at 75 cc an hour and I turned the fluid down to 20 cc an hour. Will plan on doing an ultrasound, to see if he has fluid, that can be drained via thoracentesis. He has a history of atrial fibrillation, heart murmur, kidney failure, on hemodialysis, previous pacemaker implantation, and cardiac stents for CAD. Current labs include a white count 7.5, hemoglobin 9, hematocrit 30, platelet count 303,000. Sodium 139, potassium 3.8, chlorides 97, CO2 31, BUN 26, creatinine 4.87. Troponins were 0.015, 0.017, and 0.021. N-terminal proBNP was 38,200. The patient's chest ultrasound showed a right-sided pleural effusion with a pocket size of 11.3 cm. Distance from the right skin surface to the fluid, was 1.3 cm. 24-hour interval history 07/05/2024 Patient seen and evaluated resting comfortably in bed; has any complaint of chest pain, nausea or vomiting Vital signs are reviewed stable temperature 98, pulse 84, respiration 18 and blood pressure 121/54 Labs WBC 9.8, hemoglobin of 9 and platelet count of 348, sodium 132, potassium 5.5, BUNs/creatinine of 86/5.85 --Patient reevaluated by general surgery and planning to take patient for EGD/colonoscopy once clinically stable -Patient is status post thoracentesis on 2 separate occasions; currently saturating around 99% on O2 per nasal cannula repeat chest x-ray completed this morning reveals; right-sided pleural effusion unchanged compared to previous; mild cardiomegaly and mild pulmonary vascular congestion; remains on torsemide --Plan for EGD/colonoscopy once respiratory status is stable Objective - Vital Signs Vital signs: Vital Signs Temp 98 F 07/04/24 20:00 Pulse 84 07/05/24 04:00 Resp 18 09/29/24 04:00 BP 121/54 07/05/24 04:00 Pulse Ox 99 07/05/24 04:00 FiO2 Intake & Output 07/04/24 07/05/24 07/05/24 18:59 06:59 18:59 Intake Total 240 Balance 240 Weight 67.6 kg Intake: Oral 240 Other: Voiding Method Toilet # Voids 0 1 - Exam No acute distress, oriented 3. Currently on 3 L. No respiratory distress. HEENT examination is grossly unremarkable. Mucous membranes are moist. No oral lesions. Neck supple. Full range of motion. No adenopathy thyromegaly or neck vein distention. Cardiovascular examination reveals regular rhythm rate. S1-S2 normal. No S3 or S4. No discernible murmur noted. Lungs reveal slightly diminished breath sounds at the right base. Slight dullness at the right base and percussion. The left lung is clear. No adventitious lung sounds. Saturation is 96% on 4 L.Abdomen soft bowel sounds are heard. No masses or tenderness. Extremities are intact. No cyanosis clubbing or edema. Skin is without rash or lesion. Neurologic examination is brief but nonfocal. - Labs CBC & Chem 7: 07/05/24 07:51 07/05/24 07:51 Labs: Abnormal Lab Results - Last 24 Hours (Table) 07/04/24 Range/Units 07:22 RBC 3.20 L (4.30-5.90) m/uL Hgb 9.9 L D (13.0-17.5) gm/dL Hct 31.1 L (39.0-53.0) % RDW 17.3 H (11.5-15.5) % Neutrophils # (Manual) 7.96 H (1.3-7.7) k/uL Monocytes # (Manual) 1.02 H (0-1.0) k/uL Assessment and Plan Assessment: 1. Acute shortness of breath, secondary to large right-sided pleural effusion. The patient is postthoracentesis with removal of 1.1 L of transudative fluid from the right lung. Subsequent follow-up showed that the patient had reaccumulation of the right-sided pleural effusion and I agree. -- Repeat thoracentesis on this patient on 07/02/2024 where a total of 1.2 L of bloody fluid was aspirated from the right lung. It is possible the initial thoracentesis was traumatic and the patient bled into his pleural space and this is obviously a limited amount of bleed. Hemoglobin remained stable. Respir atory status remained stable on 3 L of oxygen by nasal cannula. 2. Acute hypoxic respiratory failure patient remains on 3 L O2 nasal cannula 3. Acute on chronic anemia, could be related to pleural space bleeding following the initial thoracentesis. No evidence of any GI bleed at this point in time. The patient's hemoglobin remained stable. The patient has received units of packed RBC. 4. End-stage renal disease, currently on 3 times a week hemodialysis. The last hemodialysis session was yesterday 5. History of hyperlipidemia; Lipitor 40 mg p.o. nightly. 6. History of hypertension; torsemide 40 mg daily. 7. History of atrial fibrillation. 8. CAD with previous stent placement.
[2024-07-05] MEDS: SODIUM BICARB 8.4% 50 ML SYR (1 MEQ/ML) IV STA (12:28)
[2024-07-05] MEDS: SODIUM ZIRCONIUM CYCLOSILICATE 10 GM PACKET PO ONE (12:28)
--- NOTE | 2024-07-05 14:04 | P.PN ---
Subjective Progress Note Date: 07/05/24 79-year-old male who comes into the emergency room, on June 25, complaining of shortness of breath. The patient states that the shortness of breath has gotten worse over the last few days. The patient was seen in the emergency department, discovered to have a large right sided pleural effusion. We ended up seeing the patient in the emergency department, room #6. The patient had an elevated BNP. His CT scan was consistent with CHF. He is on 4 L of oxygen with saturations of 91%. He was getting saline at 75 cc an hour and I turned the fluid down to 20 cc an hour. Will plan on doing an ultrasound, to see if he has fluid, that can be drained via thoracentesis. He has a history of atrial fibrillation, heart murmur, kidney failure, on hemodialysis, previous pacemaker implantation, and cardiac stents for CAD. Current labs include a white count 7.5, hemoglobin 9, hematocrit 30, platelet count 303,000. Sodium 139, potassium 3.8, chlorides 97, CO2 31, BUN 26, creatinine 4.87. Troponins were 0.015, 0.017, and 0.021. N-terminal proBNP was 38,200. The patient's chest ultrasound showed a right-sided pleural effusion with a pocket size of 11.3 cm. Distance from the right skin surface to the fluid, was 1.3 cm. Progress note dated June 27, 2024. 79-year-old male who we saw in the emergency department yesterday. He was admitted with a right-sided pleural effusion. He had thoracentesis in the emergency department. He also received hemodialysis in the emergency [facility]. He is seen today in room 377. He is on room air. He is not receiving any IV fluids. His fluid analysis turned out to be a transudate. 1100 cc of light yellow fluid was removed. He tolerated the procedure well. No new labs today. Progress note dated June 28, 2024. 79-year-old male seen today in room 377. The patient is currently on 4 L of oxygen. No IV fluids. The patient has hemodialysis planned on Saturday, Saturday, and Saturday. The patient had a right-sided thoracentesis performed in the emergency department. We removed 1100 cc of transudative fluid. He tolerated the procedure well. Current labs include a white count 8.8, hemoglobin 7.4, hematocrit 24.2, and platelet count 267,000. Sodium 134, potassium 4.2, chloride 96, CO2 31, BUN 33, creatinine 5.45. Procalcitonin level was 0.53. On today's evaluation of 06/29/2024, the patient is being seen for a follow-up. Patient has end-stage renal disease on hemodialysis. The patient also had right-sided pleural effusion for which thoracentesis was done on 06/26/2024 and a total of 1.1 L of pleural fluid was aspirated. Based on the fluid chemistry, this seems to be a transudate based on the low LDH and low protein. The patient remains on 4 L of oxygen by nasal cannula with a pulse ox of 97%. A repeat chest x-ray was done today and it shows a residual right-sided pleural effusion with some reaccumulation. The patient was seen by nephrology in follow-up. The patient will receive ultrafiltration as he is able to tolerate. Noted that he does have a chronic anemia and iron deficiency was noted. Blood work from today shows a hemoglobin of 6.6 with a white cell count of 7.6 and a platelet count of 222. The serum iron was 24. The BUN is 33 with a creatinine of 5.4 and a sodium levels at 134. Echocardiogram showed preserved LV function with moderate mitral stenosis and moderate mitral regurgitation and moderate degree of tricuspid regurgitation and severe pulmonary hypertension. CT of the chest was done on 06/25/2024 at time of admission showed pulm vas congestion and a moderate-sized right-sided pleural effusion along with cardiomegaly. Last 06/30/2024, the patient is being seen for a follow-up. The patient is stable. No significant respiratory distress at this point in time. He is on 4 L of oxygen by nasal cannula with a pulse ox of 99 to 100%. Afebrile. Hemodynamically stable. As mentioned, the repeat chest x-ray showed a recurrence of the right-sided pleural effusion. Nevertheless, the patient is undergoing hemodialysis periodically and next session is tomorrow. He received a unit of packed RBC yesterday and hemoglobin is up to 8.1. WBC count is at 7.4. BUN is 45 with a creatinine of 4.29 and sodium levels of 136. The patient has no signs of any GI bleeding at this point in time. The plan is to undergo hemodialysis tomorrow. He was started on torsemide 40 mg 1 tablet a day. Nephrology is on the case. On 07/01/2024, the patient is complaining of some shortness of breath. The patient is currently on 4 L of oxygen by nasal cannula. He is in the process of undergoing hemodialysis. I made recommendations to repeat a chest x-ray following hemodialysis ultrafiltration. Will likely need another thoracentesis of the right lung if he continues to be short of breath post hemodialysis. Afebrile. Hemodynamically stable. No chest pain. No new labs are available from today. On 07/02/2024, the patient is still experiencing some shortness of breath. He underwent hemodialysis yesterday. The chest x-ray postdialysis showed a moderate-sized right-sided pleural effusion. Based on ongoing reaccumulation of the right-sided pleural effusion, I performed a bedside thoracentesis and a total of 1.2 L of bloody pleural fluid was aspirated from the right lung. It is possible that the initial thoracentesis was traumatic as the patient's hemoglobin dropped from 7.4 down to 6.6 following the first thoracentesis of the pleural fluid changed from being turbid yellowish into more bloody. Noted the patient received a unit of packed RBC. Hemoglobin has been stable since then at 8.3. Following the thoracentesis, the patient had a chest x-ray that showed no evidence of any pneumothorax. There is interval reduction in the amount of pleural fluid on the right along with some residual atelectatic changes in the right lung base. The patient is currently on 3 L of oxygen by nasal cannula with a pulse ox of 95%. He underwent hemodialysis yesterday. He is looking for a EGD colonoscopy tomorrow. He remains on torsemide 40 mg p.o. per day. He remains on subcutaneous darbepoetin alpha regarding his ongoing anemia. Rest of the medications are essentially unchanged. On 07/03/2024, the patient is undergoing hemodialysis. I performed a thoracentesis on this patient yesterday and total of 1.2 L of fluid was aspirated. He is not having any major respiratory difficulties for now. He remains on 5 L of oxygen by nasal cannula. The plan is to complete hemodialysis. Hemoglobin is at 7.9. There is still ongoing interest to undergo EGD for regarding his chronic anemia and previous hemoglobin drop. Otherwise, no other significant events overnight. Sodium is at 134, BUN is at 17 with a creatinine of 5.1. Bicarb is at 29. Chloride is 96. On 07/04/2024, patient is resting comfortably in bed. No specific complaints. Remains on Demadex 40 mg p.o. daily. Oxygenation is also stable and the patient is currently on status of oxygen by nasal cannula with a pulse ox of 99%. No significant chest pain or worsening shortness of breath. He is post thoracentesis of the right lung on 2 separate occasions. Hemoglobin is at 9.9, platelet count is at 310. No other new electrolytes for now. The patient remains on aspirin. I On 07/05/2024, the patient is resting comfortably in bed. The repeat chest x-ray was done yesterday and there was some residual right-sided pleural effusion. Nevertheless, the volume status in the right lung is improved considerably and the patient is currently on 2 L of oxygen by nasal cannula with a pulse ox of 99%. As such, I do not see the need for repeating another thoracentesis. Hemoglobin stable at 9.0. The white cell count of 9.8. The patient is on hemodialysis per nephrology. Patient is undergoing hemodialysis periodically. He typically gets dialyzed MWF. The patient is also going to undergo an EGD and a colonoscopy. On today's evaluation, patient's potassium level is at 5.5 and the patient will be receiving a dose of Lokelma 10 g. The BUN is 86 with a creatinine of 5.8. Objective - Vital Signs Vital signs: Vital Signs Temp 98.0 F 07/05/24 08:00 Pulse 74 07/05/24 08:00 Resp 18 07/05/24 08:00 BP 131/60 07/05/24 08:00 Pulse Ox 99 07/05/24 08:00 FiO2 Intake & Output 07/04/24 07/05/24 07/05/24 18:59 06:59 18:59 Intake Total 240 Balance 240 Weight 67.6 kg Intake: Oral 240 Other: Voiding Method Toilet # Voids 0 1 - Exam No acute distress, oriented 3. Currently on 3 L. No respiratory distress. HEENT examination is grossly unremarkable. Mucous membranes are moist. No oral lesions. Neck supple. Full range of motion. No adenopathy thyromegaly or neck vein distention. Cardiovascular examination reveals regular rhythm rate. S1-S2 normal. No S3 or S4. No discernible murmur noted. Lungs reveal slightly diminished breath sounds at the right base. Slight dullness at the right base and percussion. The left lung is clear. No adventitious lung sounds. Saturation is 96% on 4 L. Abdomen soft bowel sounds are heard. No masses or tenderness. Extremities are intact. No cyanosis clubbing or edema. Skin is without rash or lesion. Neurologic examination is brief but nonfocal. - Labs CBC & Chem 7: 07/05/24 07:51 07/05/24 07:51 Labs: Abnormal Lab Results - Last 24 Hours (Table) 07/05/24 07/05/24 Range/Units 07:51 07:51 RBC 3.03 L (4.30-5.90) m/uL Hgb 9.0 L (13.0-17.5) gm/dL Hct 29.2 L (39.0-53.0) % MCHC 30.9 L (31.0-37.0) g/dL RDW 17.0 H (11.5-15.5) % Sodium 132 L (137-145) mmol/L Potassium 5.5 H (3.5-5.1) mmol/L Chloride 96 L (98-107) mmol/L Carbon Dioxide 18 L (22-30) mmol/L BUN 86 H (9-20) mg/dL Creatinine 5.85 H (0.66-1.25) mg/dL Calcium 10.5 H (8.4-10.2) mg/dL Assessment and Plan Plan: Acute shortness of breath, secondary to large right-sided pleural effusion. The patient is postthoracentesis with removal of 1.1 L of transudative fluid from the right lung. Subsequent follow-up showed that the patient had reaccumulation of the right-sided pleural effusion and I agree. Another thoracentesis on this patient on 07/02/2024 where a total of 1.2 L of bloody fluid was aspirated from the right lung. It is possible the initial thoracentesis was traumatic and the patient bled into his pleural space and this is obviously a limited amount of bleed. Hemoglobin remained stable. Respiratory status remained stable on 2 L of oxygen by nasal cannula. Acute hypoxic respiratory failure patient remains on 2 L O2 nasal cannula Acute on chronic anemia, could be related to pleural space bleeding following the initial thoracentesis. No evidence of any GI bleed at this point in time. The patient's hemoglobin remained stable. The patient has received units of packed RBC. Valvular heart disease with moderate mitral and tricuspid regurgitation, preserved RV function End-stage renal disease, currently on 3 times a week hemodialysis. The last hemodialysis session was yesterday History of hyperlipidemia. History of hypertension. History of atrial fibrillation. History of cataracts. Previous pacemaker implantation. CAD with previous stent placement. Plan: Respiratory status is stable and the patient is currently on 2 L of oxygen by nasal cannula. Oxygenation improved significantly following the most recent thoracentesis and the pleural fluid was bloody, likely traumatic from a previous thoracentesis. Hemodialysis was performed on 07/03/2024 and another in session will be done 07/06/2024. Monitor oxygenation and gradual wean of the FiO2 as tolerated. The patient is currently on 2 L of O2 nasal cannula Postthoracentesis chest x-ray showed improvement in volume status in the right lung without evidence of any pneumothorax. Thoracentesis was performed today and the pleural fluid characteristics was noted EGD and colonoscopy probably by Saturday Nephrology follow-up IV iron and Aranesp Hemoglobin is stable Torsemide 40 mg p.o. daily
[2024-07-06] MEDS ORDERED: PROPOFOL 10 MG/ML 20 ML VIAL IV ONE (08:24)
[2024-07-06] MEDS ORDERED: LIDOCAINE 1% INJ 10MG/ML (20 ML MDV) ONE (08:24)
[2024-07-06] MEDS: LACTATED RINGERS 1,000 ML IV ONE (08:28)
--- NOTE | 2024-07-06 09:01 | P.PCN ---
Date of Procedure: 07/06/24 Description of Procedure: PREOPERATIVE DIAGNOSIS: Acute blood loss anemia status post transfusion End-stage renal disease POSTOPERATIVE DIAGNOSIS: Severe sigmoid diverticulosis OPERATION: Colonoscopy to the cecum, ileocecal valve and appendiceal orifice SURGEON: Katerin Smith MD. ANESTHESIA: MAC. INDICATIONS: The patient is a 79-year-old male who presents with acute blood loss anemia. Benefits and risks were described and informed consent was obtained. DESCRIPTION OF PROCEDURE: The patient had undergone attempted Golytely prep 4 L. The patient had been brought into the operating room and laid in the left lateral decubitus position. After adequate intravenous sedation, the rectum was examined with 2% lidocaine jelly. Rectal tone within normal limits. An Olympus colonoscope was gently advanced to the cecum with clear visualization of the ileocecal valve including appendiceal orifice. The prep was excellent. Severe sigmoid diverticulosis was encountered without active bleeding. No active colonic bleeding was found. No intraluminal masses were identified within the colon. No colonic polyps were found. No evidence of focal colitis was found. Retroflexion of the scope demonstrated grade 2 internal hemorrhoids with recent inflammation. The colon was desufflated. The patient had tolerated the procedure well. Withdrawal time was over 6 minutes. FINDINGS: Aronchick preparation quality scale 1 (1-5) Internal hemorrhoids, grade 2 No thrombosed hemorrhoid identified. No arteriovenous malformations. No adenomatous polyps. No focal colitis. Severe sigmoid diverticulosis without active bleeding RECOMMENDATIONS: 1. Diet as tolerated 2. Recommend 25-30 g of fiber for sigmoid diverticulosis Plan - Discharge Summary Discharge Rx Participant: No New Discharge Prescriptions: No Action Sevelamer Carbonate 1,600 mg PO TID-W/MEALS levOCARNitine [Levocarnitine] 330 mg PO HS@1700 Furosemide [Lasix] 40 mg PO BID@0900,1700 Atorvastatin [Lipitor] 20 mg PO DAILY Sildenafil [Revatio] 20 mg PO BID@0900,1700 Sennosides-Docusate Sodium [Senokot-S] 2 tab PO DAILY #30 tablet Apixaban [Eliquis] 2.5 mg PO BID@0900,1700 HYDROcodone/APAP 5-325MG [[place] 5] 1 tab PO Q6HR PRN PRN Reason: Pain Aspirin EC [Ecotrin Low Dose] 81 mg PO DAILY Omeprazole 20 mg PO HS@1700 carvediloL [Coreg] 3.125 mg PO HS@1700 buPROPion XL [Wellbutrin XL] 150 mg PO DAILY Sevelamer [Renvela] 1,600 mg PO DAILY PRN PRN Reason: snacks Benzonatate [Tessalon Perles] 200 mg PO Q6H PRN PRN Reason: Cough Multivitamins, Thera [Multivitamin (formulary)] 1 tab PO HS@1700 Ipratropium-Albuterol Nebulize [Duoneb 0.5 mg-3 mg/3 ml Soln] 3 ml INHALATION RT-Q4H PRN PRN Reason: Shortness Of Breath polyethylene glycoL 3350 [Miralax] 17 gm PO DAILY Acetaminophen Tab [Tylenol] 650 mg PO Q6H PRN PRN Reason: Fever And/ Or Pain Discharge Medication List Aspirin EC [Ecotrin Low Dose] 81 mg PO DAILY 08/04/21 [History] Sevelamer Carbonate 1,600 mg PO TID-W/MEALS 08/28/22 [History] levOCARNitine [Levocarnitine] 330 mg PO HS@1700 01/15/23 [History] Atorvastatin [Lipitor] 20 mg PO DAILY 05/16/23 [History] Furosemide [Lasix] 40 mg PO BID@0900,1700 05/16/23 [History] Sildenafil [Revatio] 20 mg PO BID@0900,1700 05/16/23 [History] Omeprazole 20 mg PO HS@1700 02/15/24 [History] carvediloL [Coreg] 3.125 mg PO HS@1700 02/15/24 [History] Sevelamer [Renvela] 1,600 mg PO DAILY PRN 05/02/24 [History] buPROPion XL [Wellbutrin XL] 150 mg PO DAILY 05/02/24 [History] Sennosides-Docusate Sodium [Senokot-S] 2 tab PO DAILY #30 tablet 05/07/24 [Rx] Acetaminophen Tab [Tylenol] 650 mg PO Q6H PRN 06/25/24 [History] Apixaban [Eliquis] 2.5 mg PO BID@0900,1700 06/25/24 [History] Benzonatate [Tessalon Perles] 200 mg PO Q6H PRN 06/25/24 [History] HYDROcodone/APAP 5-325MG [[place] 5] 1 tab PO Q6HR PRN 06/25/24 [History] Ipratropium-Albuterol Nebulize [Duoneb 0.5 mg-3 mg/3 ml Soln] 3 ml INHALATION RT-Q4H PRN 06/25/24 [History] Multivitamins, Thera [Multivitamin (formulary)] 1 tab PO HS@1700 06/25/24 [History] polyethylene glycoL 3350 [Miralax] 17 gm PO DAILY 06/25/24 [History] Follow up Appointment(s)/Referral(s): Alvaro Foster MD [Primary Care Provider] - 1-2 days [facility] Visiting Nurse, [NON-STAFF] - Discharge/Stand Alone Forms: Who Do I Call?
--- NOTE | 2024-07-06 09:04 | P.PCN ---
Date of Procedure: 07/06/24 Description of Procedure: PREOPERATIVE DIAGNOSIS: Acute blood loss anemia status post blood transfusion POSTOPERATIVE DIAGNOSIS: Acute blood loss anemia status post blood transfusion Acute gastric ulcer without bleeding, antrum OPERATION: Esophagogastroduodenoscopy SURGEON: Katerin Smith MD ANESTHESIA: MAC. INDICATIONS: The patient is a 79-year-old male who presents with acute blood loss anemia. Benefits and risks of the procedure were described. Informed consent was obtained. DESCRIPTION: The patient was brought into the endoscopy suite and laid in the left lateral decubitus position. An Olympus gastroscope was passed along the posterior oropharynx down to the distal esophagus where the squamocolumnar junction was encountered at 40 cm from the incisors. The stomach was entered and no bile reflux was found. Additional findings are listed below. The first through third portion of the duodenum was examined and unremarkable. Retroflexion of the scope confirmed Hill grade 2 lower esophageal valve. The squamocolumnar junction demonstrated LA grade B erosive esophagitis. The stomach was desufflated. The patient tolerated the procedure well. FINDINGS: Squamocolumnar junction 40 cm from the incisors. Diaphragmatic hiatus at 45 cm. Hiatal hernia, 5 cm Hill grade 4 lower esophageal valve. LA grade B erosive esophagitis. No active duodenitis. Acute gastric ulcer, antrum 2 mm x 2 without bleeding No stigmata of bleeding RECOMMENDATIONS: 1. Diet as tolerated 2. Upper endoscopy as needed 3. Colonoscopy for complete assessment
--- NOTE | 2024-07-06 09:52 | P.PN ---
Subjective Patient seen at bedside. No significant overnight events. Nephrology following for ESRD (MWF) Patient received another thoracentesis July 02, 2024. Patient received EGD and colonoscopy today (07/06) to rule out potential source of blood loss anemia. Resting in bed. Objective - Vital Signs Vital signs: Vital Signs Temp 98.0 F 07/06/24 03:26 Pulse 60 07/06/24 09:00 Resp 16 07/06/24 09:00 BP 109/52 07/06/24 09:00 Pulse Ox 94 L 07/06/24 09:00 FiO2 Intake & Output 07/05/24 07/06/24 07/06/24 18:59 06:59 18:59 Intake Total 480 100 Output Total 0 Balance 480 0 100 Weight 69.5 kg Intake: IV 100 Oral 480 Output: Urine 0 Stool 0 Other: Voiding Method Toilet Bedside Commode # Bowel Movements 1 - Exam Vital signs are stable. General: No acute distress. HEENT: Head exam is unremarkable. On nasal cannula. LUNGS: No audible rhonchi or wheezes. HEART: Rate and Rhythm are regular. ABDOMEN: Nontender. EXTREMITITES: No edema. - Labs CBC & Chem 7: 07/06/24 21:10 07/06/24 21:10 Labs: Abnormal Lab Results - Last 24 Hours (Table) 07/05/24 Range/Units 18:26 Potassium 5.2 H (3.5-5.1) mmol/L Assessment and Plan Assessment: 1. End-stage renal disease maintained on hemodialysis on Saturday schedule. 2. Volume overload. Status post right thoracentesis with 1.1 L drained June 25, 2024. Transudative. Status post right thoracentesis with 1.2 L bloody fluid drained July 02, 2024. 3. Acute blood loss anemia status post blood transfusion this admission. Hemoglobin 7.9 today decreased from 8.3 yesterday. Iron deficiency noted. s/p IV iron. On Aranesp. Also received IV DDAVP this admission. Hematology also following. Received EGD and colonoscopy (07/06) which showed no signs of active bleeding. Being followed by surgery as well. 4. Chronic kidney disease mineral bone disease maintained on Renvela. Calcium high at 10.5, 9.7 now Plan: Hemodialysis MEF schedule. EGD showed hiatal hernia, 5 cm, no active duodenitis, acute gastric ulcer, antrum 2 mm x 2 without bleeding, no stigmata of bleeding. Colonoscopy showed no thrombosed hemorrhoid, no AV malformations, no adenomatous polyps, no focal colitis, severe sigmoid diverticulosis without active bleeding. Lokelma 10 g once yesterday (07/05). Agree with resident's findings, assessment and plan.
--- NOTE | 2024-07-06 16:22 | P.PN ---
Progress Note - Text Progress Note Date: 07/06/24 Off the floor for endoscopy procedure, patient not seen.
--- NOTE | 2024-07-06 17:40 | P.PN ---
Subjective Progress Note Date: 07/06/24 The patient is seen today July 06, 2024 in follow-up on the selective care unit. He is currently up ambulating in his room with a walker. Awake and alert in no acute distress. Maintaining good O2 saturations in the mid 90s on 2 L/min per nasal cannula. He has been afebrile. Hemodynamically stable. No new labs today. He remains on oral diuretics. Hemodialysis with a Saturday schedule. Objective - Vital Signs Vital signs: Vital Signs Temp 98.0 F 07/06/24 03:26 Pulse 70 07/06/24 16:00 Resp 16 07/06/24 16:00 BP 150/66 07/06/24 16:00 Pulse Ox 94 L 07/06/24 16:00 FiO2 Intake & Output 07/05/24 07/06/24 07/06/24 18:59 06:59 18:59 Intake Total 480 218 Output Total 0 0 Balance 480 0 218 Weight 69.5 kg Intake: IV 100 Oral 480 118 Output: Urine 0 Stool 0 0 Other: Voiding Method Toilet Toilet Bedside Commode Bedside Commode # Voids 0 # Bowel Movements 1 - Exam GENERAL EXAM: Alert, pleasant 79-year-old male, on 2 L nasal cannula, comfortable in no apparent distress. HEAD: Normocephalic. EYES: Normal reaction of pupils, equal size. NOSE: Clear with pink turbinates. THROAT: No erythema or exudates. NECK: No masses, no JVD. CHEST: No chest wall deformity. LUNGS: Equal air entry with crackles in the bilateral bases right greater than left. CVS: S1 and S2 normal with no audible murmur, regular rhythm. ABDOMEN: No hepatosplenomegaly, normal bowel sounds, no guarding or rigidity. SPINE: No scoliosis or deformity SKIN: No rashes CENTRAL NERVOUS SYSTEM: No focal deficits, tone is normal in all 4 extremities. EXTREMITIES: There is no peripheral edema. No clubbing, no cyanosis. Peripheral pulses are intact. - Labs CBC & Chem 7: 07/05/24 07:51 07/05/24 18:26 Labs: Abnormal Lab Results - Last 24 Hours (Table) 07/05/24 07/05/24 Range/Units 11:58 18:26 Potassium 5.2 H (3.5-5.1) mmol/L PTH Intact 272.0 H (14.0-72.0) pg/mL Assessment and Plan Assessment: Acute shortness of breath, secondary to large right-sided pleural effusion. The patient is postthoracentesis with removal of 1.1 L of transudative fluid from the right lung. Subsequent follow-up showed that the patient had reaccumulation of the right-sided pleural effusion. Another thoracentesis on this patient on 07/02/2024 where a total of 1.2 L of bloody fluid was aspirated from the right lung. It is possible the initial thoracentesis was traumatic and the patient bled into his pleural space and this is obviously a limited amount of bleed. Hemoglobin remained stable. Respiratory status remained stable on 2 L of oxygen by nasal cannula. Acute hypoxic respiratory failure patient remains on 2 L O2 nasal cannula Acute on chronic anemia, could be related to pleural space bleeding following the initial thoracentesis. No evidence of any GI bleed at this point in time. The patient's hemoglobin remained stable. The patient has received units of packed RBC. EGD on 07/06/2024 revealed a acute gastric ulcer without bleeding, antrum. Colonoscopy revealed severe sigmoid diverticulosis. Valvular heart disease with moderate mitral and tricuspid regurgitation, preserved RV function End-stage renal disease, currently on 3 times a week hemodialysis. The last hemodialysis session was yesterday History of hyperlipidemia. History of hypertension. History of atrial fibrillation. History of cataracts. Previous pacemaker implantation. CAD with previous stent placement. Plan: The patient was seen and evaluated Medications reviewed EGD/colonoscopy results reviewed Stable on 2 L nasal cannula Continue diuretics Continue hemodialysis Saturday I have personally seen and examined the patient, performed the documentation and the assessment and plan as written. Number of minutes spent on the visit: 10.
[2024-07-06] MEDS: FAMOTIDINE 20 MG TAB PO SCH (21:20)
[2024-07-06 21:27] LABS: Anisocytosis Slight; Basophils % (A) 0 %; Eosinophils # (A) 0.2 k/uL (0-0.7); Eosinophils % (A) 4 %; HCT 28.9 % (39.0-53.0); HGB 9.1 gm/dL (13.0-17.5); Hypochromasia Moderate; Lymphocytes # (A) 0.6 k/uL (1.0-4.8); Lymphocytes % (A) 8 %; MCH 28.9 pg (25.0-35.0); MCHC 31.4 g/dL (31.0-37.0); MCV 92.1 fL (80.0-100.0); Mean Platelet Volume 6.6; Monocytes # (A) 0.5 k/uL (0-1.0); Monocytes % (A) 8 %; Neutrophils # (A) 5.2 k/uL (1.3-7.7); Neutrophils % (A) 77 %; Platelet Count 380 k/uL (150-450); RBC 3.14 m/uL (4.30-5.90); RDW 16.8 % (11.5-15.5); WBC 6.8 k/uL (3.8-10.6)
[2024-07-06 21:36] LABS: African American GFR (CKD) 16 (>60 ml/min/1.73 sqM); Anion Gap 11 mmol/L; Blood Urea Nitrogen 51 mg/dL (9-20); Calcium 9.7 mg/dL (8.4-10.2); Carbon Dioxide 29 mmol/L (22-30); Chloride 95 mmol/L (98-107); Glucose 127 mg/dL (74-99); Non-African American GFR(CKD) 13 (>60 ml/min/1.73 sqM); Potassium 4.6 mmol/L (3.5-5.1); Sodium 135 mmol/L (137-145)
[2024-07-07 08:29] LABS: Angiotensin-1 Converting Enz. 34 U/L (8-52)
[2024-07-07] MEDS: SENNOSIDES-DOCUSATE SODIUM 1 EACH TAB PO SCH (08:38)
[2024-07-07] MEDS: ACETAMINOPHEN TAB 325 MG TAB PO PRN (08:38)
--- NOTE | 2024-07-07 09:49 | CT ---
EXAMINATION TYPE: CT brain wo con DATE OF EXAM: 07/07/2024 COMPARISON: 05/02/2024 HISTORY: S/P FALL, HIT HEAD CT DLP: 1184.[address] of the brain was performed. The ventricles, basal cisterns and sulci overlying the cerebral convexities demonstrate mild enlargem ent. There is no evidence for intracranial hemorrhage or sulcal effacement. There is decreased attenuation about the periventricular white matter and deep white matter of both c erebral hemispheres, compatible with chronic small vessel ischemia. Differential diagnosis does inclu de demyelination. No mass effects are seen.No midline shift. Osseous calvarium is intact. If symptoms persist consider MRI. IMPRESSION: 1. Age related atrophic and chronic small vessel ischemic change without acute intracranial process s een at this time. [facility], , 07/07/2024 9:47 AM
[2024-07-07] MEDS: PANTOPRAZOLE 40 MG/10 ML VIAL IVP SCH (10:03)
--- NOTE | 2024-07-07 12:43 | P.PN ---
Subjective Progress Note Date: 07/07/24 CHIEF COMPLAINT: Shortness of breath HISTORY OF PRESENT ILLNESS: Patient admitted to the hospital with shortness of breath and right-sided pleural effusion status post thoracentesis x 2. Status post EGD and colonoscopy. Results reported severe sigmoid diverticulosis and acute gastric ulcer without bleeding. Patient denies any abdominal pain. Tolerating diet. Denies any nausea or vomiting. Hemoglobin stable at 9.1 PHYSICAL EXAM: VITAL SIGNS: Reviewed GENERAL: Well-developed in no acute distress. HEENT: No sclera icterus. Extraocular movements grossly intact. Moist buccal mucosa. Head is atraumatic, normocephalic. Hears conversational speech. No nasal drainage. NECK: Supple without lymphadenopathy. CHEST: Non-labored respirations and equal bilateral excursions. CARDIOVASCULAR: Palpable 2+ radial pulses. ABDOMEN: Soft. Nondistended. Nontender. MUSCULOSKELETAL: No clubbing or cyanosis. NEUROLOGIC: No focal or lateralizing signs. Cranial nerves II through XII grossly intact. PSYCH: Appropriate affect. Alert and oriented to person, place and time. SKIN: Well perfused. Good skin turgor. ASSESSMENT: 1. Anemia with iron deficiency. No active signs of GI bleeding. Status post EGD and colonoscopy with results reporting acute gastric ulcer and sigmoid diverticulosis. No evidence of active bleeding. 2. Right pleural effusion required thoracentesis x 2 3. History of atrial fibrillation 4. End-stage renal disease on hemodialysis PLAN: -Continue PPI for gastric ulcer -Recommend 25-30 g of fiber for sigmoid diverticulosis -Surgical service will sign off. Please call with any questions or concerns Physician Mechanical Project Engineer note has been reviewed by physician. Signing provider agrees with the documented findings, assessment, and plan of care. Objective - Vital Signs Vital signs: Vital Signs Temp 97.7 F 07/07/24 08:25 Pulse 81 07/07/24 08:25 Resp 20 07/07/24 08:25 BP 132/55 07/07/24 08:25 Pulse Ox 94 L 07/07/24 08:25 FiO2 Intake & Output 07/06/24 07/07/24 07/07/24 18:59 06:59 18:59 Intake Total 318 600 368 Output Total 0 6400 Balance 318 -5800 368 Weight 66.5 kg Intake: IV 100 10 Invasive Line 4 10 Oral 218 358 Hemodialysis 600 Output: Urine 0 Stool 0 0 Hemodialysis 3500 Hemodialysis Net Amount 2900 Other: Voiding Method Toilet Toilet Toilet Bedside Commode Bedside Commode Bedside Commode # Voids 0 0 - Labs CBC & Chem 7: 07/06/24 21:10 07/06/24 21:10 Labs: Abnormal Lab Results - Last 24 Hours (Table) 07/06/24 07/06/24 Range/Units 21:10 21:10 RBC 3.14 L (4.30-5.90) m/uL Hgb 9.1 L (13.0-17.5) gm/dL Hct 28.9 L (39.0-53.0) % RDW 16.8 H (11.5-15.5) % Lymphocytes # 0.6 L (1.0-4.8) k/uL Sodium 135 L (137-145) mmol/L Chloride 95 L (98-107) mmol/L BUN 51 H (9-20) mg/dL Creatinine 3.95 H (0.66-1.25) mg/dL Glucose 127 H (74-99) mg/dL Microbiology - Last 24 Hours (Table) 06/26/24 13:00 Fungal Culture - Preliminary Pleural Fluid 06/26/24 13:00 Acid Fast Bacilli Smear - Preliminary Pleural Fluid Acid Fast Bacilli Culture - Preliminary
--- NOTE | 2024-07-07 13:26 | P.PN ---
Subjective patient is seen for follow-up for end-stage renal disease. Patient fell this morning while he was at the closet trying to take his back out. Blood pressure was not low. CT of the head was unremarkable. Objective - Vital Signs Vital signs: Vital Signs Temp 97.7 F 07/07/24 08:25 Pulse 79 07/07/24 12:39 Resp 18 07/07/24 12:39 BP 115/56 07/07/24 12:39 Pulse Ox 94 L 07/07/24 12:39 FiO2 Intake & Output 07/06/24 07/07/24 07/07/24 18:59 06:59 18:59 Intake Total 318 600 368 Output Total 0 6400 Balance 318 -5800 368 Weight 66.5 kg Intake: IV 100 10 Invasive Line 4 10 Oral 218 358 Hemodialysis 600 Output: Urine 0 Stool 0 0 Hemodialysis 3500 Hemodialysis Net Amount 2900 Other: Voiding Method Toilet Toilet Toilet Bedside Commode Bedside Commode Bedside Commode # Voids 0 0 - Exam patient is awake, comfortable, no acute distress Examination of the heart S1 and S2 Examination of the lungs bilateral breath sounds are heard No evidence of edema in the lower extremities. - Labs CBC & Chem 7: 07/06/24 21:10 07/06/24 21:10 Labs: Abnormal Lab Results - Last 24 Hours (Table) 07/06/24 07/06/24 Range/Units 21:10 21:10 RBC 3.14 L (4.30-5.90) m/uL Hgb 9.1 L (13.0-17.5) gm/dL Hct 28.9 L (39.0-53.0) % RDW 16.8 H (11.5-15.5) % Lymphocytes # 0.6 L (1.0-4.8) k/uL Sodium 135 L (137-145) mmol/L Chloride 95 L (98-107) mmol/L BUN 51 H (9-20) mg/dL Creatinine 3.95 H (0.66-1.25) mg/dL Glucose 127 H (74-99) mg/dL Microbiology - Last 24 Hours (Table) 06/26/24 13:00 Fungal Culture - Preliminary Pleural Fluid 06/26/24 13:00 Acid Fast Bacilli Smear - Preliminary Pleural Fluid Acid Fast Bacilli Culture - Preliminary Assessment and Plan Assessment: 1. End-stage renal disease on hemodialysis on Saturday schedule 2 volume overloadhim a improved 3. CK D mineral bone disorder 4. Hypertension, volume sensitive 5. History of fall and fracture of left leg in April 2024 Plan: hemodialysis in a.m.. Continue Renvela with meals.
--- NOTE | 2024-07-07 15:27 | P.PN ---
Subjective Progress Note Date: 07/07/24 The patient is seen today July 06, 2024 in follow-up on the selective care unit. He is currently up ambulating in his room with a walker. Awake and alert in no acute distress. Maintaining good O2 saturations in the mid 90s on 2 L/min per nasal cannula. He has been afebrile. Hemodynamically stable. No new labs today. He remains on oral diuretics. Hemodialysis with a Saturday schedule. The patient is seen today July 07, 2024 in follow-up on the selective care unit. He is awake and alert in no acute distress. Sitting up in a chair at the bedside. Working with physical therapy. The patient did sustain a fall earlier this morning and a CT scan of the brain showed no acute intracranial process. He is currently maintaining good O2 saturations in the 90s on 3 L/min per nasal cannula. Has been afebrile. Hemodynamically stable. White count 6.8. Hemoglobin 9.1. Platelets 380. Sodium 135. Potassium 4.6. Bicarb 29. BUN 51. Creatinine 3.95. Glucose 127. He remains on oral diuretics. Objective - Vital Signs Vital signs: Vital Signs Temp 97.7 F 07/07/24 08:25 Pulse 79 07/07/24 12:39 Resp 18 07/07/24 12:39 BP 115/56 07/07/24 12:39 Pulse Ox 94 L 07/07/24 12:39 FiO2 Intake & Output 07/06/24 07/07/24 07/07/24 18:59 06:59 18:59 Intake Total 318 600 368 Output Total 0 6400 Balance 318 -5800 368 Weight 66.5 kg Intake: IV 100 10 Invasive Line 4 10 Oral 218 358 Hemodialysis 600 Output: Urine 0 Stool 0 0 Hemodialysis 3500 Hemodialysis Net Amount 2900 Other: Voiding Method Toilet Toilet Toilet Bedside Commode Bedside Commode Bedside Commode # Voids 0 0 0 - Exam GENERAL EXAM: Alert, 79-year-old male, on 3 L nasal cannula, comfortable in no apparent distress. HEAD: Normocephalic. EYES: Normal reaction of pupils, equal size. NOSE: Clear with pink turbinates. THROAT: No erythema or exudates. NECK: No masses, no JVD. CHEST: No chest wall deformity. LUNGS: Equal air entry with crackles in the bilateral bases right greater than left. CVS: S1 and S2 normal with no audible murmur, regular rhythm. ABDOMEN: No hepatosplenomegaly, normal bowel sounds, no guarding or rigidity. SPINE: No scoliosis or deformity SKIN: No rashes CENTRAL NERVOUS SYSTEM: No focal deficits, tone is normal in all 4 extremities. EXTREMITIES: There is no peripheral edema. No clubbing, no cyanosis. Peripheral pulses are intact. - Labs CBC & Chem 7: 07/06/24 21:10 07/06/24 21:10 Labs: Abnormal Lab Results - Last 24 Hours (Table) 07/06/24 07/06/24 Range/Units 21:10 21:10 RBC 3.14 L (4.30-5.90) m/uL Hgb 9.1 L (13.0-17.5) gm/dL Hct 28.9 L (39.0-53.0) % RDW 16.8 H (11.5-15.5) % Lymphocytes # 0.6 L (1.0-4.8) k/uL Sodium 135 L (137-145) mmol/L Chloride 95 L (98-107) mmol/L BUN 51 H (9-20) mg/dL Creatinine 3.95 H (0.66-1.25) mg/dL Glucose 127 H (74-99) mg/dL Microbiology - Last 24 Hours (Table) 06/26/24 13:00 Fungal Culture - Preliminary Pleural Fluid 06/26/24 13:00 Acid Fast Bacilli Smear - Preliminary Pleural Fluid Acid Fast Bacilli Culture - Preliminary Assessment and Plan Assessment: Acute shortness of breath, secondary to large right-sided pleural effusion. The patient is postthoracentesis with removal of 1.1 L of transudative fluid from the right lung. Subsequent follow-up showed that the patient had reaccumulation of the right-sided pleural effusion. Another thoracentesis on this patient on 07/02/2024 where a total of 1.2 L of bloody fluid was aspirated from the right lung. It is possible the initial thoracentesis was traumatic and the patient bled into his pleural space and this is obviously a limited amount of bleed. Hemoglobin remained stable. Respiratory status remained stable on 3 L of oxygen by nasal cannula. Acute hypoxic respiratory failure patient remains on 3 L O2 nasal cannula Acute on chronic anemia, could be related to pleural space bleeding following the initial thoracentesis. No evidence of any GI bleed at this point in time. The patient's hemoglobin remained stable. The patient has received units of packed RBC. EGD on 07/06/2024 revealed a acute gastric ulcer without bleeding, antrum. Colonoscopy revealed severe sigmoid diverticulosis. Valvular heart disease with moderate mitral and tricuspid regurgitation, preserved RV function End-stage renal disease, currently on 3 times a week hemodialysis. The last hemodialysis session was yesterday History of hyperlipidemia. History of hypertension. History of atrial fibrillation. History of cataracts. Previous pacemaker implantation. CAD with previous stent placement. Plan: The patient was seen and evaluated Medications and labs reviewed CT scan of the brain revealed no acute process status post fall Stable on 3 L nasal cannula Continue diuretics Continue hemodialysis Saturday Plan is for home with home care at discharge I have personally seen and examined the patient, performed the documentation and the assessment and plan as written. Number of minutes spent on the visit: 10.
[2024-07-07 18:54] LABS: Vitamin D, 1, 25-Dihydroxy 33 pg/mL (20 - 79)
--- NOTE | 2024-07-08 15:34 | P.PN ---
Subjective Progress Note Date: 07/08/24 The patient is seen today July 06, 2024 in follow-up on the selective care unit. He is currently up ambulating in his room with a walker. Awake and alert in no acute distress. Maintaining good O2 saturations in the mid 90s on 2 L/min per nasal cannula. He has been afebrile. Hemodynamically stable. No new labs today. He remains on oral diuretics. Hemodialysis with a Saturday schedule. The patient is seen today July 07, 2024 in follow-up on the selective care unit. He is awake and alert in no acute distress. Sitting up in a chair at the bedside. Working with physical therapy. The patient did sustain a fall earlier this morning and a CT scan of the brain showed no acute intracranial process. He is currently maintaining good O2 saturations in the 90s on 3 L/min per nasal cannula. Has been afebrile. Hemodynamically stable. White count 6.8. Hemoglobin 9.1. Platelets 380. Sodium 135. Potassium 4.6. Bicarb 29. BUN 51. Creatinine 3.95. Glucose 127. He remains on oral diuretics. The patient is seen today July 08, 2024 in follow-up on the selective care unit. He is currently resting in bed. Awake and alert in no acute distress. Receiving hemodialysis. He is status post 1 unit of packed red blood cells this admission. Current hemoglobin was 9.1. EGD had revealed acute gastric ulcer without bleeding, antrum. Colonoscopy revealed severe sigmoid diverticulosis. Pleural fluid cultures revealed no growth. He remains on oral diuretics. Objective - Vital Signs Vital signs: Vital Signs Temp 99.1 F 07/08/24 11:42 Pulse 70 07/08/24 11:42 Resp 20 07/08/24 11:42 BP 121/64 07/08/24 11:42 Pulse Ox 97 07/08/24 11:42 FiO2 Intake & Output 07/07/24 07/08/24 07/08/24 18:59 06:59 18:59 Intake Total 486 130 Output Total 0 Balance 486 0 130 Weight 67.7 kg Intake: IV 10 10 Invasive Line 4 10 10 Oral 476 120 Output: Stool 0 Other: Voiding Method Toilet Toilet Toilet Bedside Commode Bedside Commode Bedside Commode # Voids 0 0 0 # Bowel Movements 1 - Exam GENERAL EXAM: Alert, 79-year-old male, resting in bed, receiving hemodialysis, on 3 L nasal cannula, in no apparent distress. HEAD: Normocephalic. EYES: Normal reaction of pupils, equal size. NOSE: Clear with pink turbinates. THROAT: No erythema or exudates. NECK: No masses, no JVD. CHEST: No chest wall deformity. LUNGS: Equal air entry with crackles in the bilateral bases right greater than left. CVS: S1 and S2 normal with no audible murmur, regular rhythm. ABDOMEN: No hepatosplenomegaly, normal bowel sounds, no guarding or rigidity. SPINE: No scoliosis or deformity SKIN: No rashes CENTRAL NERVOUS SYSTEM: No focal deficits, tone is normal in all 4 extremities. EXTREMITIES: There is no peripheral edema. No clubbing, no cyanosis. Peripheral pulses are intact. - Labs CBC & Chem 7: 07/06/24 21:10 07/06/24 21:10 Assessment and Plan Assessment: Acute shortness of breath, secondary to large right-sided pleural effusion. The patient is postthoracentesis with removal of 1.1 L of transudative fluid from the right lung. Subsequent follow-up showed that the patient had reaccumulation of the right-sided pleural effusion. Another thoracentesis on this patient on 07/02/2024 where a total of 1.2 L of bloody fluid was aspirated from the right lung. It is possible the initial thoracentesis was traumatic and the patient bled into his pleural space and this is obviously a limited amount of bleed. Hemoglobin remained stable. Respiratory status remained stable on 3 L of oxygen by nasal cannula. Acute hypoxic respiratory failure patient remains on 3 L O2 nasal cannula Acute on chronic anemia, could be related to pleural space bleeding following the initial thoracentesis. The patient has received units of packed RBC. Current hemoglobin 9.1. EGD on 07/06/2024 revealed a acute gastric ulcer without bleeding, antrum. Colonoscopy revealed severe sigmoid diverticulosis. Valvular heart disease with moderate mitral and tricuspid regurgitation, preserved RV function End-stage renal disease, currently on 3 times a week hemodialysis. The last hemodialysis session was yesterday History of hyperlipidemia. History of hypertension. History of atrial fibrillation. History of cataracts. Previous pacemaker implantation. CAD with previous stent placement. Plan: The patient was seen and evaluated Medications reviewed Stable on 3 L nasal cannula Continue diuretics Continue hemodialysis Saturday Plan is for home with home care at discharge I have personally seen and examined the patient, performed the documentation and the assessment and plan as written. Number of minutes spent on the visit: 10.
--- NOTE | 2024-07-08 17:39 | P.PN ---
Subjective Progress Note Date: 07/07/24 This is an 79-year-old gentleman with past medical history significant for end- stage renal disease, anemia, hypercoagulopathy, atrial fibrillation, valvular heart disease, permanent pacemaker, CAD and multiple other medical issues admitted with acute hypoxic respiratory failure, status post right-sided tho racentesis-transudative- for large right-sided pleural effusion, suspecting acute CHF exacerbation. Cytology pending. denies chills or sweats. Reports he feels totally exhausted. Hemoglobin 6.7, 7.4 with repeat hemoglobin pending. denies chest pain or palpitations. Maintaining O2 sats in the low 90s on 4 L nasal cannula. Chest x-ray pending. Afebrile. 06/30/2024 Received 1 unit of packed RBCs yesterday with hemoglobin currently 8.1, platelets 277. No active bleeding reported. slept well in bed without shortness of breath. Denies chest pain, palpitations. Reports nonproductive cough x 2 to 3 weeks. Denies lightheadedness dizziness. Has not yet ambulated. PT consult in place. Chest x-ray completed yesterday afternoon reporting moderate right pleural effusion and consolidation with no sizable pneumothorax. Maintaining O2 sat in the high 90s to 100% on 4 L nasal cannula. Pleural cytology from previous thoracentesis pending. afebrile, normal WBC. 07/01/2024 Currently receiving hemodialysis this morning. Received IV iron. complaining of shortness of breath and feeling tired. currently maintaining O2 sats in the 90s on 4 L nasal cannula. Pleural cytology reported few scattered mixed acute and chronic inflammatory cells with macrophages and reactive mesothelial cells, negative for malignancy. Afebrile. 07/02/2024 report he feels better today, less tired. States his coughing eased up throughout the night and he slept well. Maintained on torsemide. chest x-ray post hemodialysis yesterday reported moderate right pleural effusion and consolidation stable from prior exam . Repeat chest x-ray pending .denies chest pain, palpitations or shortness of breath. Maintaining O2 sats in the high 90s on 4 L nasal cannula. denies lightheadedness dizziness or focal deficits. Denies headache. Denies nausea or vomiting or abdominal pain. Receivied IV DDAVP . Continues on IV iron, Aranesp. hemoglobin stable at 8.3. No active signs of GI bleed. Evaluated by general surgery for EGD and colonoscopy- recommending when medically stable. 07/03/2024 yesterday right thoracentesis repeated with 1200 mL of bloody fluid removed. Reports shortness of breath today mildly improved. chest x-ray pending. Maintaining O2 sats in the high 90s on 5 L nasal cannula. Patient is about to begin with his hemodialysis this morning. Labs pending. 07/07/2024 completed EGD and colonoscopy yesterday, reported severe sigmoid diverticulosis, acute nonbleeding gastric ulcer. Denies abdominal pain. hemoglobin stable, 9.1. tolerating diet, denies nausea or vomiting. Afebrile, normal WBC. vital signs stable maintaining O2 sats in the 90s on 3 L nasal cannula. Objective - Vital Signs Vital signs: Vital Signs Temp 98.4 F 07/07/24 16:00 Pulse 85 07/07/24 16:00 Resp 20 07/07/24 16:00 BP 114/49 07/07/24 16:00 Pulse Ox 98 07/07/24 16:00 FiO2 Intake & Output 07/06/24 07/07/24 07/07/24 18:59 06:59 18:59 Intake Total 318 600 486 Output Total 0 6400 Balance 318 -5800 486 Weight 66.5 kg Intake: IV 100 10 Invasive Line 4 10 Oral 218 476 Hemodialysis 600 Output: Urine 0 Stool 0 0 Hemodialysis 3500 Hemodialysis Net Amount 2900 Other: Voiding Method Toilet Toilet Toilet Bedside Commode Bedside Commode Bedside Commode # Voids 0 0 0 - Exam PHYSICAL EXAM: VITAL SIGNS: [As above] GENERAL: alert and oriented x 3, sitting up at bedside, no acute distress. HEENT: Normocephalic, conjunctivae normal. eyes normal. Sclera anicteric. NECK: Supple, no JVD. CARDIOVASCULAR: S1, S2 regular. Systolic murmur RESPIRATION: Unlabored, equal air entry , fine right basilar crackles ABDOMEN: Soft, nondistended, nontender, no guarding, no rigidity. +BS EXTR: Warm and dry, no edema, no clubbing or cyanosis. NERVOUS SYSTEM: Cranial N 2-12 grossly normal. No focal deficits. Strength and sensation grossly intact. Skin: Warm and dry, no rash - Labs CBC & Chem 7: 07/06/24 21:10 07/06/24 21:10 Labs: Abnormal Lab Results - Last 24 Hours (Table) 07/06/24 07/06/24 Range/Units 21:10 21:10 RBC 3.14 L (4.30-5.90) m/uL Hgb 9.1 L (13.0-17.5) gm/dL Hct 28.9 L (39.0-53.0) % RDW 16.8 H (11.5-15.5) % Lymphocytes # 0.6 L (1.0-4.8) k/uL Sodium 135 L (137-145) mmol/L Chloride 95 L (98-107) mmol/L BUN 51 H (9-20) mg/dL Creatinine 3.95 H (0.66-1.25) mg/dL Glucose 127 H (74-99) mg/dL Microbiology - Last 24 Hours (Table) 06/26/24 13:00 Fungal Culture - Preliminary Pleural Fluid 06/26/24 13:00 Acid Fast Bacilli Smear - Preliminary Pleural Fluid Acid Fast Bacilli Culture - Preliminary Assessment and Plan Assessment: Acute shortness of breath secondary to large right-sided pleural effusion status post right-sided thoracentesis, fluid transudative. Repeat right thoracentesis 07/02/2024. Acute blood loss anemia, status posttransfusion 1 unit packed RBCs.Status post EGD,colonoscopy reporting acute gastric ulcer ,sigmoid diverticulosis, No active bleeding. Chronic iron deficient anemia. Chronic diastolic CHF End-stage renal disease on hemodialysis, history of cardiorenal syndrome. HD Saturday Chronic atrial fibrillation History of pacemaker implantation, complete heart block CAD Severe pulmonary hypertension Moderate to severe mitral regurgitation Moderate to severe tricuspid regurgitation Multivalvular heart disease including mild aortic stenosis Mild hepatic steatosis History of fall and fracture of left leg, April 2024 Plan: Continue on current medication resume ,monitoring and symptomatic treatment. IV PPI twice daily ordered .resume Eliquis pending general surgery's clearance. Diuretics and hemodialysis as per nephrology. Earlier this morning patient attempted to get up out of bed, at his closet looking for cl othes,sustained a fall reports he hit his head, no syncope, brain CT ordered. PT/OT. Prognosis guarded given multiple complex medical issues. The impression and plan of care has been dictated as directed. : I performed a history and examination of this patient, discussed the same with the dictator. I agree with the dictator's note ,documented as a scribe. Any additional findings or plans will be noted.
--- NOTE | 2024-07-08 18:47 | P.PN ---
Subjective Patient is seen for follow-up for end-stage renal disease. Scheduled for hemodialysis today. No significant complaints. Objective - Vital Signs Vital signs: Vital Signs Temp 97.6 F 07/08/24 15:23 Pulse 68 07/08/24 15:23 Resp 18 07/08/24 15:23 BP 115/74 07/08/24 15:23 Pulse Ox 97 07/08/24 15:23 FiO2 Intake & Output 07/07/24 07/08/24 07/08/24 18:59 06:59 18:59 Intake Total 486 670 Output Total 0 Balance 486 0 670 Weight 67.7 kg Intake: IV 10 10 Invasive Line 4 10 10 Oral 476 660 Output: Stool 0 Other: Voiding Method Toilet Toilet Toilet Bedside Commode Bedside Commode Bedside Commode # Voids 0 0 0 # Bowel Movements 1 - Exam patient is awake, comfortable, no acute distress Examination of the heart S1 and S2 Examination of the lungs bilateral breath sounds are heard No evidence of edema in the lower extremities. 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 - Labs CBC & Chem 7: 07/06/24 21:10 07/06/24 21:10 Assessment and Plan Assessment: 1. End-stage renal disease on hemodialysis on Saturday schedule 2 volume overload , improved 3. CK D mineral bone disorder 4. Hypertension, volume sensitive 5. History of fall and fracture of left leg in April 2024 Plan: Hemodialysis today. Continue with Renvela. Continue Aranesp.
[2024-07-08] MEDS: APIXABAN 2.5 MG TABLET PO SCH (19:55)
[2024-07-09 02:55] VITALS: TEMP 97.5
[2024-07-09 08:02] LABS: Anisocytosis Slight; Basophils % (A) 0 %; Eosinophils # (A) 0.4 k/uL (0-0.7); Eosinophils % (A) 4 %; HCT 28.8 % (39.0-53.0); HGB 9.3 gm/dL (13.0-17.5); Hypochromasia Slight; Lymphocytes % (A) 11 %; MCH 29.5 pg (25.0-35.0); MCHC 32.4 g/dL (31.0-37.0); MCV 91.2 fL (80.0-100.0); Mean Platelet Volume 7.7; Monocytes # (A) 0.7 k/uL (0-1.0); Monocytes % (A) 7 %; Neutrophils # (A) 6.9 k/uL (1.3-7.7); Neutrophils % (A) 75 %; Platelet Count 382 k/uL (150-450); RBC 3.16 m/uL (4.30-5.90); RDW 16.9 % (11.5-15.5); WBC 9.2 k/uL (3.8-10.6)
[2024-07-09 08:40] LABS: African American GFR (CKD) 10 (>60 ml/min/1.73 sqM); Anion Gap 15 mmol/L; Blood Urea Nitrogen 73 mg/dL (9-20); Calcium 10.3 mg/dL (8.4-10.2); Carbon Dioxide 26 mmol/L (22-30); Chloride 89 mmol/L (98-107); Glucose 93 mg/dL (74-99); Non-African American GFR(CKD) 8 (>60 ml/min/1.73 sqM); Potassium 4.3 mmol/L (3.5-5.1); Sodium 130 mmol/L (137-145)
--- NOTE | 2024-07-09 09:13 | P.PN ---
Subjective Progress Note Date: 07/08/24 This is an 79-year-old gentleman with past medical history significant for end- stage renal disease, anemia, hypercoagulopathy, atrial fibrillation, valvular heart disease, permanent pacemaker, CAD and multiple other medical issues admitted with acute hypoxic respiratory failure, status post right-sided tho racentesis-transudative- for large right-sided pleural effusion, suspecting acute CHF exacerbation. Cytology pending. denies chills or sweats. Reports he feels totally exhausted. Hemoglobin 6.7, 7.4 with repeat hemoglobin pending. denies chest pain or palpitations. Maintaining O2 sats in the low 90s on 4 L nasal cannula. Chest x-ray pending. Afebrile. 06/30/2024 Received 1 unit of packed RBCs yesterday with hemoglobin currently 8.1, platelets 277. No active bleeding reported. slept well in bed without shortness of breath. Denies chest pain, palpitations. Reports nonproductive cough x 2 to 3 weeks. Denies lightheadedness dizziness. Has not yet ambulated. PT consult in place. Chest x-ray completed yesterday afternoon reporting moderate right pleural effusion and consolidation with no sizable pneumothorax. Maintaining O2 sat in the high 90s to 100% on 4 L nasal cannula. Pleural cytology from previous thoracentesis pending. afebrile, normal WBC. 07/01/2024 Currently receiving hemodialysis this morning. Received IV iron. complaining of shortness of breath and feeling tired. currently maintaining O2 sats in the 90s on 4 L nasal cannula. Pleural cytology reported few scattered mixed acute and chronic inflammatory cells with macrophages and reactive mesothelial cells, negative for malignancy. Afebrile. 07/02/2024 report he feels better today, less tired. States his coughing eased up throughout the night and he slept well. Maintained on torsemide. chest x-ray post hemodialysis yesterday reported moderate right pleural effusion and consolidation stable from prior exam . Repeat chest x-ray pending .denies chest pain, palpitations or shortness of breath. Maintaining O2 sats in the high 90s on 4 L nasal cannula. denies lightheadedness dizziness or focal deficits. Denies headache. Denies nausea or vomiting or abdominal pain. Receivied IV DDAVP . Continues on IV iron, Aranesp. hemoglobin stable at 8.3. No active signs of GI bleed. Evaluated by general surgery for EGD and colonoscopy- recommending when medically stable. 07/03/2024 yesterday right thoracentesis repeated with 1200 mL of bloody fluid removed. Reports shortness of breath today mildly improved. chest x-ray pending. Maintaining O2 sats in the high 90s on 5 L nasal cannula. Patient is about to begin with his hemodialysis this morning. Labs pending. 07/07/2024 completed EGD and colonoscopy yesterday, reported severe sigmoid diverticulosis, acute nonbleeding gastric ulcer. Denies abdominal pain. hemoglobin stable, 9.1. tolerating diet, denies nausea or vomiting. Afebrile, normal WBC. vital signs stable maintaining O2 sats in the 90s on 3 L nasal cannula. 07-08-24 scheduled for hemodialysis today. Brain CT reported no acute intracranial process. sitting up in chair, doing well, working on a paper puzzle. Continues on oral Lasix maintaining O2 sats 100% on 3 L nasal cannula. Objective - Vital Signs Vital signs: Vital Signs Temp 99.1 F 07/08/24 11:42 Pulse 70 07/08/24 11:42 Resp 20 07/08/24 11:42 BP 121/64 07/08/24 11:42 Pulse Ox 97 07/08/24 11:42 FiO2 Intake & Output 07/07/24 07/08/24 07/08/24 18:59 06:59 18:59 Intake Total 486 130 Output Total 0 Balance 486 0 130 Weight 67.7 kg Intake: IV 10 10 Invasive Line 4 10 10 Oral 476 120 Output: Stool 0 Other: Voiding Method Toilet Toilet Toilet Bedside Commode Bedside Commode Bedside Commode # Voids 0 0 0 # Bowel Movements 1 - Exam PHYSICAL EXAM: VITAL SIGNS: [As above] GENERAL: alert and oriented x 3, sitting up in chair, no acute distress. HEENT: Normocephalic, conjunctivae normal. eyes normal. Sclera anicteric. NECK: Supple, no JVD. CARDIOVASCULAR: S1, S2 regular. Systolic murmur RESPIRATION: Unlabored, equal air entry , fine right basilar crackles ABDOMEN: Soft, nondistended, nontender, no guarding, no rigidity. +BS EXTR: Warm and dry, no edema, no clubbing or cyanosis. NERVOUS SYSTEM: Cranial N 2-12 grossly normal. No focal deficits. Strength and sensation grossly intact. Skin: Warm and dry, no rash - Labs CBC & Chem 7: 07/09/24 07:09 07/09/24 07:09 Assessment and Plan Assessment: Acute shortness of breath secondary to large right-sided pleural effusion status post right-sided thoracentesis, fluid transudative. Repeat right thoracentesis 07/02/2024. Acute blood loss anemia, status posttransfusion 1 unit packed RBCs.Status post EGD,colonoscopy reporting acute gastric ulcer ,sigmoid diverticulosis, No active bleeding. Chronic iron deficient anemia. Chronic diastolic CHF End-stage renal disease on hemodialysis, history of cardiorenal syndrome. HD Saturday Chronic atrial fibrillation History of pacemaker implantation, complete heart block CAD Severe pulmonary hypertension Moderate to severe mitral regurgitation Moderate to severe tricuspid regurgitation Multivalvular heart disease including mild aortic stenosis Mild hepatic steatosis History of fall and fracture of left leg, April 2024 Plan: Continue on current medication resume ,monitoring and symptomatic chelsea tment. IV PPI twice daily ordered .resuming Eliquis. Hemodialysis today. PT/OT. Weaning O2. discharge planning in progress pending final DC recommendations and clearance per pulmonary. prognosis guarded given multiple complex medical issues. The impression and plan of care has been dictated as directed. : I performed a history and examination of this patient, discussed the same with the dictator. I agree with the dictator's note ,documented as a scribe. Any additional findings or plans will be noted.
--- NOTE | 2024-07-09 11:24 | P.PN ---
Subjective Patient is seen for follow-up for end-stage renal disease. Patient is maintained on Saturday schedule. Tolerated treatment well yesterday. No significant complaints. Objective - Vital Signs Vital signs: Vital Signs Temp 97.5 F L 07/09/24 04:00 Pulse 84 07/09/24 08:23 Resp 18 07/09/24 08:23 BP 129/80 07/09/24 08:23 Pulse Ox 93 L 07/09/24 08:40 FiO2 Intake & Output 07/08/24 07/09/24 07/09/24 18:59 06:59 18:59 Intake Total 670 Balance 670 Weight 67.5 kg Intake: IV 10 Invasive Line 4 10 Oral 660 Other: Voiding Method Toilet Toilet Bedside Commode Bedside Commode # Voids 0 2 # Bowel Movements 1 - Exam patient is awake, comfortable, no acute distress Examination of the heart S1 and S2 Examination of the lungs bilateral breath sounds are heard No evidence of edema in the lower extremities. 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 - Labs CBC & Chem 7: 07/09/24 07:09 07/09/24 07:09 Labs: Abnormal Lab Results - Last 24 Hours (Table) 07/09/24 07/09/24 Range/Units 07:09 07:09 RBC 3.16 L (4.30-5.90) m/uL Hgb 9.3 L (13.0-17.5) gm/dL Hct 28.8 L (39.0-53.0) % RDW 16.9 H (11.5-15.5) % Sodium 130 L (137-145) mmol/L Chloride 89 L (98-107) mmol/L BUN 73 H (9-20) mg/dL Creatinine 5.80 H (0.66-1.25) mg/dL Calcium 10.3 H (8.4-10.2) mg/dL Assessment and Plan Assessment: 1. End-stage renal disease on hemodialysis on Saturday schedule 2 volume overload , improved 3. CK D mineral bone disorder 4. Hypertension, volume sensitive 5. History of fall and fracture of left leg in April 2024 Plan: Hemodialysis in a.m. Continue with Renvela. Continue Aranesp.
[2024-07-09 12:54] VITALS: BP 126/72; PULSE 72; RESP 16
--- NOTE | 2024-07-09 14:58 | P.DS ---
Providers Date of admission: 06/25/24 19:04 Expected date of discharge: 07/09/24 Attending physician: Alvaro Foster MD Consults: 06/25/24 18:59 Consult Physician Routine Consulting Provider: Dante Churchill Consult Reason/Comments: sob Do you want consulting provider notified?: Yes Consult Physician Routine Consulting Provider: Torsten Suero Consult Reason/Comments: known Do you want consulting provider notified?: Yes 06/29/24 18:38 Consult Physician Routine Consulting Provider: Valentin Jimenez Consult Reason/Comments: anemia Do you want consulting provider notified?: Yes 07/01/24 13:33 Consult Physician Routine Consulting Provider: Katerin Smith Consult Reason/Comments: LASHELL, upper and lower endoscopy Do you want consulting provider notified?: Yes Primary care physician: Alvaro Foster MD Hospital Course: Hospital course: Acute shortness of breath secondary to large right-sided pleural effusion status post right-sided thoracentesis, fluid transudative. Repeat right thoracentesis 07/02/2024. Acute blood loss anemia, status posttransfusion 1 unit packed RBCs.Status post EGD,colonoscopy reporting acute gastric ulcer ,sigmoid diverticulosis, No acti ve bleeding. Chronic iron deficient anemia. Chronic diastolic CHF End-stage renal disease on hemodialysis, history of cardiorenal syndrome. HD Saturday Chronic atrial fibrillation History of pacemaker implantation, complete heart block CAD Severe pulmonary hypertension Moderate to severe mitral regurgitation Moderate to severe tricuspid regurgitation Multivalvular heart disease including mild aortic stenosis Mild hepatic steatosis History of fall and fracture of left leg, April 2024 Hospital course:This is an 79-year-old gentleman with past medical history significant for end-stage renal disease, anemia, hypercoagulopathy, atrial fibrillation, valvular heart disease, permanent pacemaker, CAD and multiple other medical issues admitted with acute hypoxic respiratory failure, status post right-sided thoracentesis-transudative- for large right-sided pleural effusion, suspecting acute CHF exacerbation. Cytology pending. denies chills or sweats. Reports he feels totally exhausted. Hemoglobin 6.7, 7.4 with repeat hemoglobin pending. denies chest pain or palpitations. Maintaining O2 sats in the low 90s on 4 L nasal cannula. Chest x-ray pending. Afebrile. 06/30/2024 Received 1 unit of packed RBCs yesterday with hemoglobin currently 8.1, platelets 277. No active bleeding reported. slept well in bed without shortness of breath. Denies chest pain, palpitations. Reports nonproductive cough x 2 to 3 weeks. Denies lightheadedness dizziness. Has not yet ambulated. PT consult in place. Chest x-ray completed yesterday afternoon reporting moderate right pleural effusion and consolidation with no sizable pneumothorax. Maintaining O2 sat in the high 90s to 100% on 4 L nasal cannula. Pleural cytology from previous thoracentesis pending. afebrile, normal WBC. 07/01/2024 Currently receiving hemodialysis this morning. Received IV iron. complaining of shortness of breath and feeling tired. currently maintaining O2 sats in the 90s on 4 L nasal cannula. Pleural cytology reported few scattered mixed acute and chronic inflammatory cells with macrophages and reactive mesothelial cells, negative for malignancy. Afebrile. 07/02/2024 report he feels better today, less tired. States his coughing eased up throughout the night and he slept well. Maintained on torsemide. chest x-ray post hemodialysis yesterday reported moderate right pleural effusion and consolidation stable from prior exam . Repeat chest x-ray pending .denies chest pain, palpitations or shortness of breath. Maintaining O2 sats in the high 90s on 4 L nasal cannula. denies lightheadedness dizziness or focal deficits. Denies headache. Denies nausea or vomiting or abdominal pain. Receivied IV DDAVP . Continues on IV iron, Aranesp. hemoglobin stable at 8.3. No active signs of GI bleed. Evaluated by general surgery for EGD and colonoscopy- recommending when medically stable. 07/03/2024 yesterday right thoracentesis repeated with 1200 mL of bloody fluid removed. Reports shortness of breath today mildly improved. chest x-ray pending. Maintaining O2 sats in the high 90s on 5 L nasal cannula. Patient is about to begin with his hemodialysis this morning. Labs pending. 07/07/2024 completed EGD and colonoscopy yesterday, reported severe sigmoid diverticulosis, acute nonbleeding gastric ulcer. Denies abdominal pain. hemoglobin stable, 9.1. tolerating diet, denies nausea or vomiting. Afebrile, normal WBC. vital signs stable maintaining O2 sats in the 90s on 3 L nasal cannula. 07-08-24 scheduled for hemodialysis today. Brain CT reported no acute intracra nial process. sitting up in chair, doing well, working on a paper puzzle. Continues on oral Lasix maintaining O2 sats 100% on 3 L nasal cannula. IV PPI twice daily ordered .resuming Eliquis. Hemodialysis today. PT/OT. Weaning O2. discharge planning in progress pending final DC recommendations and clearance per pulmonary. prognosis guarded given multiple complex medical issues. Significant clinical improvement. Hemoglobin 9.3. Hemodialysis Saturday as per nephrology. patient will be discharged home today in a stable condition with guarded prognosis pending final DC recommendations and clearance as per nephrology, pulmonary as well as PT evaluation and recommendations. The impression and plan of care has been dictated as directed. : I performed a history and examination of this patient, discussed the same with the dictator. I agree with the dictator's note ,documented as a scribe. Any additional findings or plans will be noted. Patient Condition at Discharge: Stable Plan - Discharge Summary Discharge Rx Participant: No New Discharge Prescriptions: New Darbepoetin Tyler [Aranesp] 40 mcg SQ Q7D each Torsemide [Demadex] 40 mg PO DAILY #30 tab Pantoprazole Sodium [Protonix] 40 mg PO BID #60 tab Continue Sevelamer Carbonate 1,600 mg PO TID-W/MEALS levOCARNitine [Levocarnitine] 330 mg PO HS@1700 Atorvastatin [Lipitor] 20 mg PO DAILY Sildenafil [Revatio] 20 mg PO BID@0900,1700 Sennosides-Docusate Sodium [Senokot-S] 2 tab PO DAILY #30 tablet Apixaban [Eliquis] 2.5 mg PO BID@0900,1700 HYDROcodone/APAP 5-325MG [[place] 5-325] 1 tab PO Q6HR PRN PRN Reason: Pain Aspirin EC [Ecotrin Low Dose] 81 mg PO DAILY Omeprazole 20 mg PO HS@1700 carvediloL [Coreg] 3.125 mg PO HS@1700 buPROPion XL [Wellbutrin XL] 150 mg PO DAILY Sevelamer [Renvela] 1,600 mg PO DAILY PRN PRN Reason: snacks Benzonatate [Tessalon Perles] 200 mg PO Q6H PRN PRN Reason: Cough Multivitamins, Thera [Multivitamin (formulary)] 1 tab PO HS@1700 polyethylene glycoL 3350 [Miralax] 17 gm PO DAILY Acetaminophen Tab [Tylenol] 650 mg PO Q6H PRN PRN Reason: Fever And/ Or Pain Changed Ipratropium-Albuterol Nebulize [Duoneb 0.5 mg-3 mg/3 ml Soln] 3 ml INHALATION QID #0 Discontinued Furosemide [Lasix] 40 mg PO BID@0900,1700 Discharge Medication List Aspirin EC [Ecotrin Low Dose] 81 mg PO DAILY 08/04/21 [History] Sevelamer Carbonate 1,600 mg PO TID-W/MEALS 08/28/22 [History] levOCARNitine [Levocarnitine] 330 mg PO HS@1700 01/15/23 [History] Atorvastatin [Lipitor] 20 mg PO DAILY 05/16/23 [History] Sildenafil [Revatio] 20 mg PO BID@0900,1700 05/16/23 [History] Omeprazole 20 mg PO HS@1700 02/15/24 [History] carvediloL [Coreg] 3.125 mg PO HS@1700 02/15/24 [History] Sevelamer [Renvela] 1,600 mg PO DAILY PRN 05/02/24 [History] buPROPion XL [Wellbutrin XL] 150 mg PO DAILY 05/02/24 [History] Sennosides-Docusate Sodium [Senokot-S] 2 tab PO DAILY #30 tablet 05/07/24 [Rx] Acetaminophen Tab [Tylenol] 650 mg PO Q6H PRN 06/25/24 [History] Apixaban [Eliquis] 2.5 mg PO BID@0900,1700 06/25/24 [History] Benzonatate [Tessalon Perles] 200 mg PO Q6H PRN 06/25/24 [History] HYDROcodone/APAP 5-325MG [[place] 5-325] 1 tab PO Q6HR PRN 06/25/24 [History] Multivitamins, Thera [Multivitamin (formulary)] 1 tab PO HS@1700 06/25/24 [History] polyethylene glycoL 3350 [Miralax] 17 gm PO DAILY 06/25/24 [History] Darbepoetin Tyler [Aranesp] 40 mcg SQ Q7D each 07/09/24 [Rx] Ipratropium-Albuterol Nebulize [Duoneb 0.5 mg-3 mg/3 ml Soln] 3 ml INHALATION QID #0 07/09/24 [Rx] Pantoprazole Sodium [Protonix] 40 mg PO BID #60 tab 07/09/24 [Rx] Torsemide [Demadex] 40 mg PO DAILY #30 tab 07/09/24 [Rx] Follow up Appointment(s)/Referral(s): Melly Loo MD [STAFF PHYSICIAN] - 1 Week (follow up at dialysis) Alvaro Foster MD [Primary Care Provider] - 07/11/24 9:30 am ([facility]) Jm Foy MD [STAFF PHYSICIAN] - 08/26/24 9:45 am (Saturday) [facility] Visiting Nurse, [NON-STAFF] - Activity/Diet/Wound Care/Special Instructions: Hemodialysis as per nephrology Zinc GUARD barrier paste as advised Discharge/Stand Alone Forms: Who Do I Call? Discharge Disposition: HOME WITH HOME HEALTH SERVICES
--- NOTE | 2024-07-09 15:24 | XR ---
EXAMINATION TYPE: XR chest 1V portable DATE OF EXAM: 07/09/2024 2:24 PM CLINICAL INDICATION: Male, 79 years old with history of CHF; [facility] COMPARISON: 07/05/2024 TECHNIQUE: XR chest 1V portable Frontal view of the chest. FINDINGS: Lungs/Pleura: Right pleural effusion is increased from prior. There is no evidence of left pleural ef fusion, focal consolidation, or pneumothorax. Pulmonary vascularity: Unremarkable. Heart/mediastinum: Cardiomediastinal silhouette is enlarged. Two lead cardiac conduction device overl flex the left hemithorax with lead tips projecting over the right ventricle and right atrium. Musculoskeletal: No acute osseous pathology. Other findings: None IMPRESSION: Similar right pleural effusion with atelectasis. Cardiomegaly. [facility], , 07/09/2024 3:21 PM
--- NOTE | 2024-07-09 16:48 | P.PN ---
Subjective Progress Note Date: 07/09/24 The patient is seen today July 06, 2024 in follow-up on the selective care unit. He is currently up ambulating in his room with a walker. Awake and alert in no acute distress. Maintaining good O2 saturations in the mid 90s on 2 L/min per nasal cannula. He has been afebrile. Hemodynamically stable. No new labs today. He remains on oral diuretics. Hemodialysis with a Saturday schedule. The patient is seen today July 07, 2024 in follow-up on the selective care unit. He is awake and alert in no acute distress. Sitting up in a chair at the bedside. Working with physical therapy. The patient did sustain a fall earlier this morning and a CT scan of the brain showed no acute intracranial process. He is currently maintaining good O2 saturations in the 90s on 3 L/min per nasal cannula. Has been afebrile. Hemodynamically stable. White count 6.8. Hemoglobin 9.1. Platelets 380. Sodium 135. Potassium 4.6. Bicarb 29. BUN 51. Creatinine 3.95. Glucose 127. He remains on oral diuretics. The patient is seen today July 08, 2024 in follow-up on the selective care unit. He is currently resting in bed. Awake and alert in no acute distress. Receiving hemodialysis. He is status post 1 unit of packed red blood cells this admission. Current hemoglobin was 9.1. EGD had revealed acute gastric ulcer without bleeding, antrum. Colonoscopy revealed severe sigmoid diverticulosis. Pleural fluid cultures revealed no growth. He remains on oral diuretics. The patient is seen today July 09, 2024 in follow-up on the selective care unit. Is currently sitting up at the bedside. Awake and alert in no acute distress. Maintaining O2 saturations in the 90s on 3 L/min per nasal cannula. He is afebrile. Hemodynamically stable. Follow-up chest x-ray continues to show a similar size right pleural effusion with atelectasis. Oral fluid cultures from 06/26/2024 revealed no growth. Cytology was negative for malignancy. White count 9.2. Hemoglobin 9.3. Platelets 382. Sodium 130. Potassium 4.3. Bicarb 26. BUN 73. Creatinine 5.80. Remains on a Saturday hemodialysis schedule. Objective - Vital Signs Vital signs: Vital Signs Temp 97.5 F L 07/09/24 04:00 Pulse 72 07/09/24 12:53 Resp 16 07/09/24 12:53 BP 126/72 07/09/24 12:53 Pulse Ox 91 L 07/09/24 12:53 FiO2 Intake & Output 07/08/24 07/09/24 07/09/24 18:59 06:59 18:59 Intake Total 670 Balance 670 Weight 67.5 kg Intake: IV 10 Invasive Line 4 10 Oral 660 Other: Voiding Method Toilet Toilet Bedside Commode Bedside Commode # Voids 0 2 # Bowel Movements 1 - Exam GENERAL EXAM: Alert, 79-year-old male, on 3 L nasal cannula, in no apparent distress. HEAD: Normocephalic. EYES: Normal reaction of pupils, equal size. NOSE: Clear with pink turbinates. THROAT: No erythema or exudates. NECK: No masses, no JVD. CHEST: No chest wall deformity. LUNGS: Equal air entry with crackles in the right base. CVS: S1 and S2 normal with no audible murmur, regular rhythm. ABDOMEN: No hepatosplenomegaly, normal bowel sounds, no guarding or rigidity. SPINE: No scoliosis or deformity SKIN: No rashes CENTRAL NERVOUS SYSTEM: No focal deficits, tone is normal in all 4 extremities. EXTREMITIES: There is no peripheral edema. No clubbing, no cyanosis. Peripheral pulses are intact. - Labs CBC & Chem 7: 07/09/24 07:09 07/09/24 07:09 Labs: Abnormal Lab Results - Last 24 Hours (Table) 07/09/24 07/09/24 Range/Units 07:09 07:09 RBC 3.16 L (4.30-5.90) m/uL Hgb 9.3 L (13.0-17.5) gm/dL Hct 28.8 L (39.0-53.0) % RDW 16.9 H (11.5-15.5) % Sodium 130 L (137-145) mmol/L Chloride 89 L (98-107) mmol/L BUN 73 H (9-20) mg/dL Creatinine 5.80 H (0.66-1.25) mg/dL Calcium 10.3 H (8.4-10.2) mg/dL Assessment and Plan Assessment: Acute shortness of breath, secondary to large right-sided pleural effusion. The patient is postthoracentesis with removal of 1.1 L of transudative fluid from the right lung. Subsequent follow-up showed that the patient had reaccumulation of the right-sided pleural effusion. Another thoracentesis on this patient on 07/02/2024 where a total of 1.2 L of bloody fluid was aspirated from the right lung. It is possible the initial thoracentesis was traumatic and the patient bled into his pleural space and this is obviously a limited amount of bleed. Hemoglobin remained stable. Respiratory status remained stable on 3 L of oxygen by nasal cannula. Acute on chronic hypoxic respiratory failure patient remains on 3 L O2 nasal cannula Acute on chronic anemia, could be related to pleural space bleeding following the initial thoracentesis. The patient has received units of packed RBC. Current hemoglobin 9.1. EGD on 07/06/2024 revealed a acute gastric ulcer without bleeding, antrum. Colonoscopy revealed severe sigmoid diverticulosis Valvular heart disease with moderate mitral and tricuspid regurgitation, preserved RV function End-stage renal disease, currently on Saturday schedule for hemodialysis History of hyperlipidemia History of hypertension History of atrial fibrillation History of cataracts Previous pacemaker implantation CAD with previous stent placement Plan: The patient was seen and evaluated Chest x-ray, labs and medications reviewed Stable on 3 L nasal cannula Continue hemodialysis Saturday Plan is for home with home care at discharge I have personally seen and examined the patient, performed the documentation and the assessment and plan as written. Number of minutes spent on the visit: 10.
--- NOTE | 2024-07-23 19:51 | CDI ---
Documentation Clarification Form Date: 07/23/2024 07:45:31 PM From: Phyllis Neely Phone: Admit Date: 06/25/2024 07:04:00 PM Patient Name: Lionel Fair Visit Number: [id number] Discharge Date: 07/09/2024 04:08:00 PM ATTENTION: The Clinical Documentation Specialists (CDI) and [facility] Coding Staff appreciate your assistance in clarifying documentation. Please respond to the clarification below the line at the bottom and electronically sign. The CDI & [facility] Coding staff will review the response and follow-up if needed. Please note: Queries are made part of the Legal Health Record. If you have any questions, please contact the author of this message via ITS. Doctor/Provider: Torsten Suero There is documentation of chronic kidney diseasemineral bone disease. Additional clarification is requested. History/Risk Factors: 79yo M, ACDHF, MR, TR, , ESRA on HD w anemia, AHRF, chronic A Fib, RTpleural effusion, diverticulosis Clinical Indicators: GFR: 13-15 BUN: 17-86 Treatment: maintained on Renvela Can you please clarify Chronic kidney diseasemineral bone disease? [ ] Renal osteodystrophy [ x] Mineral bone disease, NOS [ ] Other, please specify [ ] Unable to determine (Template Last Revised: December 2020) MTDD
== END 2024-07-09 16:08 | disposition home health service (06) | DRG 291 ==
LOC: EC 15:57 → 3SCARD 19:04
PROVIDERS: ADMIT Family Medicine; ATTEND Family Medicine
PROC: 0W993ZZ Drainage of Right Pleural Cavity, Percutaneous Approach (ICD-10-PCS; principal; 2024-06-26)
PROC: 5A1D70Z Performance of Urinary Filtration, Intermittent, Less than 6 Hours Per Day (ICD-10-PCS; 2024-06-26)
PROC: 30233N1 Transfusion of Nonautologous Red Blood Cells into Peripheral Vein, Percutaneous Approach (ICD-10-PCS; 2024-06-29)
PROC: 0W993ZZ Drainage of Right Pleural Cavity, Percutaneous Approach (ICD-10-PCS; 2024-07-02)
PROC: 0DJD8ZZ Inspection of Lower Intestinal Tract, Via Natural or Artificial Opening Endoscopic (ICD-10-PCS; 2024-07-06)
PROC: 0DJ08ZZ Inspection of Upper Intestinal Tract, Via Natural or Artificial Opening Endoscopic (ICD-10-PCS; 2024-07-06)
DX: I13.2 Hypertensive heart and chronic kidney disease with heart failure and with stage 5 chronic kidney disease, or end stage renal disease (principal); I50.33 Acute on chronic diastolic (congestive) heart failure; K57.31 Diverticulosis of large intestine without perforation or abscess with bleeding; J96.21 Acute and chronic respiratory failure with hypoxia; N18.6 End stage renal disease; I44.2 Atrioventricular block, complete; J91.8 Pleural effusion in other conditions classified elsewhere; D62 Acute posthemorrhagic anemia; K22.10 Ulcer of esophagus without bleeding; I48.19 Other persistent atrial fibrillation; I27.20 Pulmonary hypertension, unspecified; Z79.01 Long term (current) use of anticoagulants; Z99.2 Dependence on renal dialysis; K76.0 Fatty (change of) liver, not elsewhere classified; K25.9 Gastric ulcer, unspecified as acute or chronic, without hemorrhage or perforation; D50.9 Iron deficiency anemia, unspecified; I08.3 Combined rheumatic disorders of mitral, aortic and tricuspid valves; K64.8 Other hemorrhoids; K44.9 Diaphragmatic hernia without obstruction or gangrene; I25.10 Atherosclerotic heart disease of native coronary artery without angina pectoris; E78.5 Hyperlipidemia, unspecified; N28.89 Other specified disorders of kidney and ureter; D47.2 Monoclonal gammopathy; Z96.641 Presence of right artificial hip joint; Z79.82 Long term (current) use of aspirin; Z79.899 Other long term (current) drug therapy; Z87.11 Personal history of peptic ulcer disease; Z95.0 Presence of cardiac pacemaker; Z95.5 Presence of coronary angioplasty implant and graft; Z91.81 History of falling; M89.8X9 Other specified disorders of bone, unspecified site
CPT/HCPCS: 36415; 43235; 45378; 70450; 71045; 71275; 76604; 80048; 80053; 82164; 82306; 82607; 82652; 82728; 82747; 82945; 83519; 83540; 83550; 83605; 83615; 83735; 83880; 83883; 83970; 84100; 84132; 84145; 84157; 84165; 84484; 85025; 85027; 85045; 85379; 85610; 85730; 86334; 86850; 86900; 86901; 86920; 87070; 87102; 87116; 87205; 87206; 87496; 87498; 87502; 87529; 87634; 87635; 87798; 88108; 88305; 89050; 90935; 93005; 94760; 96360; 96361; 99291

== ENCOUNTER → 2024-06-25 | Outpatient (CLI) | payer MEDICARE | END | disposition home or self-care (01) | LOC: LABWHC1 11:17 | PROVIDERS: ATTEND Family Medicine | DX: R06.02 Shortness of breath (principal) | CPT/HCPCS: 36415; 85379 ==